=== PATIENT | female | born 1960 | race Caucasian/White ===

== ENCOUNTER 2019-02-21 16:07 | Emergency (ER) | payer MEDICARE, SELFPAY ==
[2019-02-21 16:09] VITALS: BP 109/76; PULSE 147; RESP 22; TEMP 36.8; O2SAT 95; BMI 41.9
--- NOTE | 2019-02-21 16:20 | ED.RN ---
ATTEMPTED TO CALL DAUGHTER AND GENERAL POA. NO ANSWER
--- NOTE | 2019-02-21 16:22 | EKG12_ITS ---
Test Reason : GI BLEED Blood Pressure : / mmHG Vent. Rate : 146 BPM Atrial Rate : 292 BPM P-R Int : 000 ms QRS Dur : 092 ms QT Int : 346 ms P-R-T Axes : 098 -36 139 degrees QTc Int : 539 ms Atrial flutter Left axis deviation Anteroseptal infarct , age undetermined Nonspecific ST & T wave abnormality Abnormal ECG Confirmed by BERNIE REYES, TIFFANIE ([id number]), desk editor FARZANEH PEREZ ([id number] on 02/25/2019 2:20:49 PM Referred By: ARNIE Confirmed By:TIFFANIE GIBBS MD
--- NOTE | 2019-02-21 16:23 | CT_ITS ---
STUDY: CT BRAIN WITHOUT CONTRAST REASON FOR EXAM: Female, 59 years old. Fall. RADIATION DOSAGE (If Supplied By Facility): CTDIvol = ( 44.99 ) mGy, DLP = ( 762.36 ) mGycm TECHNIQUE: Transaxial CT imaging of the brain was performed without administration of intravenous contrast material. Individualized dose optimization techniques were used for this CT. COMPARISON: No relevant priors. FINDINGS: Normal soft tissue structures. Normal calvarium. Normal size ventricles and extra-axial spaces for the patient''s age. There are areas of decreased attenuation within the white matter tracts of the supratentorial brain, consistent with microvascular disease changes. Normal basal ganglia and thalami. Normal brainstem. Normal cerebellum. There is no intracranial hemorrhage. There are no findings of an acute ischemic infarction. Normal visualized paranasal sinuses. CT/Brain/Head without Contrast IMPRESSION: Chronic involutional changes of the brain. Electronically Signed: Charla Jay MD at 18:27 EST Tel , Service support ,
--- NOTE | 2019-02-21 16:23 | CT_ITS ---
STUDY: CT ABDOMEN AND PELVIS WITH CONTRAST REASON FOR EXAM: Female, 59 years old. Fall. Abdominal pain. Rectal bleeding. RADIATION DOSAGE (If Supplied By Facility): CTDIvol = ( 21.31 ) mGy, DLP = ( 2989.49 ) mGycm TECHNIQUE: Transaxial images were obtained from the dome of the diaphragm to the symphysis pubis without oral contrast. 100ML ISOVUE 370 was administered. Sagittal and coronal images were reconstructed. Individualized dose optimization techniques were used for this CT. COMPARISON: None. FINDINGS: The visualized lung bases are unremarkable. There are coronary artery calcifications present. There is decreased attenuation of the liver consistent with steatosis. Normal spleen. Normal pancreas. There is nodular prominence of the left adrenal gland which may be secondary to underlying hypertrophy. Normal right kidney. Normal left kidney. Normal visualized stomach. Normal small intestine. Normal colon. The appendix is visualized and appears normal. There is nodular rectal and anal wall thickening. There are extraluminal foci of air within the mesial rectal fascia. There are multiple perirectal and perianal fluid collections associated with foci of air extending into the buttocks bilaterally consistent with underlying abscesses. Registrar Assistant abscesses include a 3.5 x 4.2 cm abscess within the right buttocks and a 3.5 x 5.4 cm abscess within the left buttocks. There is diffuse atherosclerotic calcification of the abdominal aorta, without a demonstrated aneurysm. Normal inferior vena cava. Normal retroperitoneum. Normal urinary bladder. There are diffuse degenerative changes of the visualized lumbar spine. CT/Abdomen/Pelvis W IV Cont ONLY IMPRESSION: Multiple bilateral perirectal and perianal abscesses associated with abscesses within the buttocks bilaterally. Extraluminal air within the mesial rectal fat suggestive of rectal and possible anal perforation. Rectal and anal wall thickening which is likely predominantly secondary to inflammation however cannot exclude an underlying neoplastic process. Atherosclerosis. Fatty infiltration of the liver. N.B. : The above information has been verbally conveyed by Charla Jay MD to Destiny Ramos MD, on 02/21/2019 18:29:46 (ET). Electronically Signed: Charla Jay MD at 18:31 EST Tel , Service support ,
--- NOTE | 2019-02-21 16:24 | CT_ITS ---
STUDY: CT CERVICAL SPINE WITHOUT CONTRAST REASON FOR EXAM: Female, 59 years old. Fall. RADIATION DOSAGE (If Supplied By Facility): CTDIvol = ( 30.35 ) mGy, DLP = ( 634.83 ) mGycm TECHNIQUE: High resolution transaxial imaging was performed without contrast material. Sagittal and coronal images were reconstructed. Individualized dose optimization techniques were used for this CT. COMPARISON: None FINDINGS: Normal craniovertebral junction. There are degenerative changes of the anterior atlantoaxial articulation. Normal odontoid process. There is straightening of the normal cervical lordosis. There is multilevel facet hypertrophy. C2-3: Normal endplates. Normal disc height and morphology. Normal central canal and intervertebral neuroforamina. C3-4: There is endplate spondylosis and facet hypertrophy associated narrowing of the right intervertebral neuroforamina. C4-5: There is endplate spondylosis and facet hypertrophy associated with narrowing of the left intervertebral neuroforamina. C5-6: There is a posterior disc osteophyte associated with stenosis of the central canal. C6-7: There is a posterior disc osteophyte associated with stenosis of the central canal. C7-T1: Endplate spondylolysis and facet hypertrophy associated with narrowing of the right intervertebral neuroforamina. Normal visualized soft tissue structures. CT/Spine Cervical without Contras IMPRESSION: Multilevel degenerative changes, as described above. Electronically Signed: Charla Jay MD at 18:37 EST Tel , Service support ,
--- NOTE | 2019-02-21 16:30 | RAD_ITS ---
STUDY: X-RAY CHEST REASON FOR EXAM: Female, 59 years old. Shortness of breath. Rectal bleeding. Abdominal pain. TECHNIQUE: Single frontal view of the chest. COMPARISON: September 23, 2009 and January 24, 2014 FINDINGS: There is no new focal consolidation. Normal size heart. There is stable perihilar fullness.. Normal visualized aortic arch and descending thoracic aorta. Normal visualized thoracic spine. Normal visualized ribs, clavicles, and shoulders. There is no demonstrated abnormality of the visualized soft tissue structures of the upper abdomen. RAD/Chest 1 View (Portable) IMPRESSION: No acute cardiopulmonary process. Electronically Signed: Charla Jay MD at 17:19 EST Tel , Service support ,
[2019-02-21 16:52] LABS: Absolute Lymphocyte Count 1.22 X10^3/uL (0.83-4.51); Absolute Neutrophil Count 17.9 X10^3/uL (2.0-7.7); Basophil# 0.07 X10^3/uL; Basophil% 0.4 % (0-1); Eosinophil# 0.03 X10^3/uL; Eosinophils% 0.2 % (0-5); Hemoglobin 11.7 g/dL (12.0-15.0); Lymphocyte # 1.22 X10^3/ul (4.0); Lymphocyte % 6.1 % (19-41); Mean Corp Hgb Conc 32.5 g/dL (32-36); Mean Corpuscular Hgb 28.6 pg (27.0-32.0); Mean Platelet Vol. 11.8 fl (6.2-12.0); Monocyte# 0.61 X10^3/uL; Monocyte% 3.1 % (0-10); NRBC Flagged by Analyzer 0 % (0-5); Neutrophil # 17.88 X10^3/uL (2.7-7.7); Neutrophil % 89.3 % (47-70); POSITIVE MORPHOLOGY YES; Platelet Count 187 K/mm3 (150-450); RBC Distribution Width CV 15.9 % (11.6-14.6); Red Blood Count 4.09 M/mm3 (4.2-5.4)
[2019-02-21 16:56] LABS: Bacteria 0 SEEN /hpf (None Seen)
[2019-02-21 16:56] LABS: Differential Indicated SCAN CRITERIA MET
[2019-02-21 17:02] LABS: International Normalized Ratio 1.4; Prothrombin Time (Protime)PT. 17.3 SECONDS (11.7-14.9)
--- NOTE | 2019-02-21 17:05 | ED.VISSUMM ---
- ER Visit Summary Date of Service: 02/21/19 Chief Complaint: Abdominal pain History of Present Illness: The patient is a 59 F presenting to the ED per EMS for abdominal pain and rectal bleeding. Patient is a poor historian. She states she has been having intermittent abdominal pain for the past 2 weeks. She states she fell last night getting out of the bathtub and hit her abdomen on the bathtub. She denies hitting her head. Denies loss of consciousness. She complains of dizziness. She has a history of hidradenitis and states that she has had bleeding from her buttock. She has a history of schizophrenia. She states her family took her off all her medications 2 weeks ago, with the exception of Bactrim which she takes for hidradenitis and her schizophrenia medication. She states she has shortness of breath which is chronic and no worse than usual. She denies chest pain. She denies nausea, vomiting, diarrhea. She complains of constipation. Denies blood in her stool. She complains of dysuria and myalgias. She complains of generalized weakness and fatigue. Denies fever or other complaints. Physical Examination: Blood pressure 109/76, temperature 98.2, heart rate 147, respiration rate 22. Pulse ox 95% on room air. HEENT exam is unremarkable. Neck is supple. Lungs are clear and equal bilaterally. Heart is irregularly irregular and tachycardic Abdomen is soft obese nontender nondistended. Back: Extensive abscess/decubitus ulcer with purulent drainage Extremities are unremarkable. Skin is warm and dry. No focal neurologic deficit. Remainder of exam is unremarkable. Emergency Department Course and Treatment: Patient was given IV fluids. Blood cultures were sent. CBC shows white count of 20.0, hemoglobin 11.7. EKG is a flutter rate of 146. Chemistries show sodium 135, glucose 193, creatinine 1.12. INR 1.4. Urinalysis shows 5-10 white blood cells. Urine cultures were sent. Lactic acid was 3.7. Troponin 0.295. She was given 30 cc/kg bolus of IV fluids. Chest x-ray shows no acute process. She was given vancomycin and Zosyn. CT head and neck show no acute process. CT abd/pelvis shows multiple bilateral perirectal and perianal abscesses associated with abscesses within the buttocks bilaterally. Extraluminal air within the mesial rectal fat suggestive of rectal and possible anal perforation. Rectal and anal wall thickening which is likely predominantly secondary to inflammation however cannot exclude an underlying neoplastic process. Atherosclerosis. Fatty infiltration of the liver. Discussed with Dr. Mchugh. Discussed with family. Patient will be transferred to [facility]. Disposition: Transfer [facility] Impression: Multiple bilateral perirectal and perianal abscesses with rectal and anal perforation, A. fib with RVR, severe sepsis This note was generated with [employer] dictation software. It may contain incorrect words, spelling, and punctuation that were not noted in review of the chart prior to signing ED Disposition - Plan for ED Patient: Referrals: Lai Londono MD [Primary Care Provider] -
[2019-02-21 17:21] LABS: Differential Comment SCANNED
[2019-02-21] MEDS: 0.9% Normal Saline 1,000 ML 999 ML IV ×2 (17:21→18:25)
[2019-02-21 17:25] LABS: Color, Urine Amber (Yellow); Glucose, Dipstick Normal (Normal); Ketone-Dipstick 5 mg/dl (Negative); Leukocyte Esterase-Dipstick 25 /ul (Negative); Nitrite-Dipstick Negative (Negative); Occult Blood-Urine 10 /ul (Negative); Protein-Dipstick 30 mg/dl (Negative); Urine Clarity Sl. Cloudy (Clear); Urine Urobilinogen 8 mg/dl (Normal)
[2019-02-21 17:26] LABS: ALB/GLOB Ratio 0.3 RATIO (0.9-2.4); AST(SGOT) 48 U/L (15-37); Alanine Aminotransfer ALT/SGPT 27 U/L (13-56); Albumin, Serum 1.7 g/dL (3.2-5.0); Alkaline Phosphatase 183 U/L (45-117); Anion Gap 9 (5-15); BUN 15 mg/dL (7-18); BUN/Creat Ratio 13.4 RATIO (10-20); Calcium,Total 8.3 mg/dL (8.5-10.1); Chloride 104 mmol/L (98-107); Creatinine, Serum 1.12 mg/dL (0.55-1.02); EST Glomerular Filtration Rate 53 mL/min (>60); Est Glom Filt Rate - Afr Amer 64 mL/min (>60); Estimated Creatinine Clearance 46.13 ml/min; Globulin 5.8 g/dL (2.2-4.2); Glucose 193 mg/dL (74-106); Lipase 37 U/L (73-393); Potassium 4.3 mmol/L (3.5-5.1); Protein, Total 7.5 g/dL (6.4-8.2); Sodium Level 135 mmol/L (136-145)
[2019-02-21 17:27] LABS: Urine Bilirubin Dipstick 3 mg/dL (Negative)
[2019-02-21 17:29] LABS: Mucous, Urine 3+ /hpf (<or=2+); Red Blood Cells-Urine 0-5 SEEN /hpf (0-5); Squamous Epithelial Cells - UA 0-5 SEEN /hpf (5-10); White Blood Cells 5-10 SEEN /hpf (0-5)
[2019-02-21 17:30] LABS: Amorphous Sediment 1+ URATE
[2019-02-21 17:37] LABS: Lactic Acid 3.7 mmol/L (0.4-1.9)
[2019-02-21 18:40] VITALS: BMI 42.0
[2019-02-21 18:52] LABS: Digoxin Level 0.08 ng/mL (0.80-2.00)
[2019-02-21 19:07] VITALS: BP 112/70; PULSE 136; RESP 30; TEMP 37.7; O2SAT 97
[2019-02-21 20:24] VITALS: PULSE 140; O2SAT 98
[2019-02-21 20:52] LABS: Reflex Lactate? Y
== END 2019-02-21 20:20 | disposition short-term general hospital (02) ==
LOC: ED 16:36
PROVIDERS: Emergency Provider Emergency Medicine; Family Provider Family Medicine; PCP Family Medicine
DX: A41.9 Sepsis, unspecified organism (principal); R65.20 Severe sepsis without septic shock; K61.2 Anorectal abscess; K63.1 Perforation of intestine (nontraumatic); I48.91 Unspecified atrial fibrillation; L73.2 Hidradenitis suppurativa; F20.9 Schizophrenia, unspecified; Z79.2 Long term (current) use of antibiotics; Z79.899 Other long term (current) drug therapy; Z72.0 Tobacco use
CPT/HCPCS: 36415; 70450; 71045; 72125; 74177; 80053; 80162; 81001; 82274; 83605; 83690; 84484; 85025; 85610; 85730; 87040; 87086; 93005; 96365; 96367; 96375; 99285; J7030; J7040; J7050; Q9967; A4216

== ENCOUNTER 2019-03-25 14:05 | Inpatient (IN) | payer MEDICARE, MEDICAID, SELFPAY ==
[2019-03-25 15:00] VITALS: BP 123/56; PULSE 83; RESP 18; TEMP 36.3; O2SAT 98; BMI 40.3
[2019-03-25] MEDS: Acetaminophen 325 MG Tablet PO (16:13)
[2019-03-25 18:18] VITALS: BP 123/56; PULSE 83
[2019-03-25] MEDS: Metoprolol Tartrate 25 MG Tablet PO (18:18)
--- NOTE | 2019-03-25 18:58 | NURSING ---
Attempted to contact family multiple times to notify them of need for patients home med. Unable to reach anyone.
--- NOTE | 2019-03-25 19:06 | NURSING ---
Spoke with Rosaline, patients daughter. Made her aware of need for a home medication that is not currently available from our pharmacy. Daughter stated she would see if she had any medication that she could bring in.
--- NOTE | 2019-03-25 19:23 | PCM.HP.STD ---
Problem List (1) Debility Status: Acute (2) Sepsis Status: Acute (3) Perirectal abscess Status: Acute (4) Schizophrenia Status: Chronic (5) Bipolar disorder Status: Chronic (6) Atrial fibrillation Status: Chronic (7) Hydradenitis Status: Chronic (8) Diabetes mellitus Status: Chronic (9) Hypertension Status: Chronic (10) Osteoarthritis Status: Chronic (11) Irritable bowel syndrome Status: Chronic (12) Morbid obesity Status: Chronic (13) Obstructive sleep apnea Status: Chronic (14) Post traumatic stress disorder Status: Chronic History of Present Illness Date of Admission: 03/25/19 Chief Complaint: Here for rehabilitation, strengthening, prior to disposition determination. The patient is a 59 year old Female with below past medical history presented to outside hospital with concern for sepsis, possible rectal perforation from jojo-rectal hydradenitis suppurativa. Patient states she has had hydradenitis since she was [age] and previously required bilateral axillary I&D's for it. She states that for the past week she has been having worsening pain in her butt as well and both purulent, bloody drainage. She has been having fevers, chills. Septic shock, perirectal hydradenitis with possible anorectal perforation on CT, atrial fibrillation with RVR, status post rectal examination under anesthesia, perirectal debridement, flex sig 02/22/2019. She underwent surgery and was found to have multiple rectal abscesses. She underwent I&D and currently is on IV Unasyn on transfer from [facility]. Daughter is POA/primary decision maker due to patient's history of mental illness including schizophrenia, bipolar disorder. 03/02/2019 IV Unasyn, consult Infectious Disease for perirectal abscess. Sepsis resolved. Cultures grew mixed liliana including E. Coli susceptible to ceftriaxone, and bacteroides. ID switched her Unasyn to oral Augmentin. Also started on oral zinc to help with hydradenitis. 03/25/2019 Admit to TCU with debility, here for rehabilitation, strengthening, prior to disposition determination. Past Medical History Past Medical History (Chronic Problems): Chronic Problems Schizophrenia (Chronic) Bipolar disorder (Chronic) Atrial fibrillation (Chronic) Hydradenitis (Chronic) Diabetes mellitus (Chronic) Hypertension (Chronic) Osteoarthritis (Chronic) Irritable bowel syndrome (Chronic) Morbid obesity (Chronic) Obstructive sleep apnea (Chronic) Post traumatic stress disorder (Chronic) Allergies diltiazem Allergy (Verified 01/24/14 11:21) Swelling aripiprazole [From Abilify] Adverse Reaction (Verified 03/25/19 15:09) Anaphylaxis doxepin Adverse Reaction (Verified 03/25/19 15:09) Other doxycycline Adverse Reaction (Verified 01/24/14 11:21) Other ibuprofen [From Motrin] Adverse Reaction (Verified 01/24/14 11:21) Nausea/Vom/Diarrhea naproxen [From Naprosyn] Adverse Reaction (Verified 01/24/14 11:21) Nausea/Vom/Diarrhea prednisone Adverse Reaction (Verified 01/28/14 14:23) Other made me real mean risperidone [From Risperdal] Adverse Reaction (Verified 03/25/19 15:09) Swelling Home Medications: Ambulatory Orders Medication Instructions Recorded Clonazepam 1 mg PO BID 02/21/19 Gabapentin [Neurontin] 400 mg PO TID 02/21/19 Loxapine Succinate [Loxapine] 25 mg PO QHS 02/21/19 Sulfamethoxazole/Trimethoprim 1 tab PO BID 02/21/19 [Sulfamethoxazole-Tmp Ds Tablet] Acetaminophen [Tylenol] 325 mg PO 4X/DAY 03/25/19 Amiodarone HCl 200 mg PO DAILY 03/25/19 Ascorbic Acid [Vitamin C] 500 mg PO BID 03/25/19 Enoxaparin Sodium [Lovenox] 40 mg SQ DAILY 03/25/19 Gabapentin [Neurontin] 200 mg PO TID 03/25/19 Ibuprofen 200 mg PO TID 03/25/19 Ipratropium/Albuterol Sulfate 3 ml INHALATION Q6H.RT 03/25/19 [Duoneb] Metoprolol Tartrate 25 mg PO BID 03/25/19 Oxycodone [Oxyir] 5 mg PO Q6H PRN PRN 03/25/19 Sodium Hypochlorite [Dakins 1 applic TOPICAL BID 03/25/19 Solution 0.25% (1/2 Strength)] Zinc Sulfate 220 mg PO BID 03/25/19 Surgical History: cholecystectomy, - - Left breast abscess, right groin, thigh, abdomen abscess. Axillary, groin abscess. 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 Denies: Chills, Fever, Weight Change HEENT: Denies: Head Aches, Sinus Congestion, Sinus Drainage Cardiovascular: Denies: Chest Pain, Palpitations Respiratory: Denies: Cough, Shortness of breath at rest, Sputum production Gastrointestinal: Denies: Abdominal Pain, Nausea, Vomiting Genitourinary: Denies: Dysuria Musculoskeletal: Denies: Joint Pain, Joint Tenderness Skin: Denies: Rash, Wounds Neurological: Denies: Numbness, Tingling, Focal weakness Psychiatric: Denies: Anxiety, Depression, Homicidal Ideations, Suicidal Ideations Hematologic/ Lymphatic: Denies: Easy Bruising, Easy Bleeding VTE Information - Inpt Only VTE Present on Admission: No VTE Mechan Device Prophylaxis: Knee High KARMA Hose VTE Pharm Prophylaxis ordered?: Yes Patient Problems: Active and Suspected Problems Debility (Acute) Sepsis (Acute) Perirectal abscess (Acute) - Physical Exam Vitals/I&O's: Vital Signs Temp Pulse Resp BP Pulse Ox 97.4 F L 83 18 123/56 H 98 03/25/19 15:00 03/25/19 18:18 03/25/19 15:00 03/25/19 18:18 03/25/19 15:00 Oxygen Delivery Method Room Air Body Mass Index (BMI) 41.9 Intake and Output for Last 24 Hours 03/23/19 03/24/19 03/25/19 23:59 23:59 23:59 Intake Total 120 / 120 Balance 120 / 120 General: Alert, Oriented x3, Cooperative HEENT: Atraumatic, PERRLA, EOMI, Normocephalic Neck: Supple, No JVD, Negative Carotid Bruits Lungs: Clear to auscultation, Normal air movement Cardiovascular: Regular rate, No murmurs, - - Central line in chest. Abdomen: Bowel Sounds Present, Soft, Non Tender, - - Indwelling gimenez catheter. Extremities: No edema, Capillary Refill Less than 3 Seconds Skin: Ulcer/ Wound - Perianal wound per wound team. Musculoskeletal: No Tenderness to Palpation of Joints or Extremities Neurological: Cranial nerves II-XII grossly intact Psych/Mental Status: Normal Affect, Appropriate Current Medications Acetaminophen (Tylenol) 325 mg PO 4X/DAY MALGORZATA Last Admin: 03/25/19 16:13 Dose: 325 mg Documented by: Albuterol/Ipratropium (Duoneb) 3 ml INHALATION Q6H.RT [facility] Amiodarone HCl (Cordarone) 200 mg PO DAILY [facility] Ascorbic Acid (Vitamin C) 500 mg PO BID [facility] Clonazepam (Klonopin) 1 mg PO BID [facility] Enoxaparin Sodium (Lovenox) 40 mg SC DAILY [facility] Gabapentin (Neurontin) 200 mg PO TID [facility] Ibuprofen (Motrin) 200 mg PO TID [facility] Loxapine Succinate (Loxapine) 25 mg PO QHS [facility] Metoprolol Tartrate (Lopressor (Beta Marcella)) 25 mg PO BID [facility] Last Admin: 03/25/19 18:18 Dose: 25 mg Documented by: Multivit/Ca Carb/B Cmplx/FA/Prenat (Nephrocaps, Renaphro) 1 capsule PO DAILY[facility] Nystatin (Mycostatin Powder) 1 applic TOPICAL BID [facility]; Protocol Oxycodone HCl (Oxyir) 5 mg PO Q6H PRN PRN PRN Reason: Pain or Fever Sodium Hypochlorite (Dakins Solution 0.25% (1/2 Strength)) 1 applic TOPICAL BID [facility]; Protocol Trimethoprim/Sulfamethoxazole (Bactrim Ds) 1 tablet PO BID [facility] Tuberculin PPD (Tubersol, Aplisol, Ppd) 5 tu ID X1 ONE Stop: 03/26/19 10:01 Tuberculin PPD (Tubersol, Aplisol, Ppd) 5 tu ID X1 ONE Stop: 04/02/19 10:01 Zinc Sulfate (Zinc Sulfate) 220 mg PO BID [facility] Last Admin: 03/25/19 18:18 Dose: 220 mg Documented by: Assessment/Plan All Active Problems Debility (Acute) Sepsis (Acute) Perirectal abscess (Acute) 59 year old female with below past medical history hospitalized for sepsis, perirectal abscess secondary to hydradenitis requiring incision & drainage, admitted to [facility], transferred to TCU with debility, here for rehabilitation, strengthening, prior to disposition determination. Debility - PT/OT. Pain - Tylenol 1000MG Q8H, Oxycodone 5MG Q6H PRN pain (4-10), Ibuprofen 200MG TID. Bowel - Miralax 17GM daily, Senna/colace 1 tablet BID, Dulcolax 10MG daily PRN. Adult immunization - Administer Prevnar 13, Pneumovax 23, Fluzone as appropriate. DVT prophylaxis - Lovenox 40MG SC daily. Atrial Fibrillation - Metoprolol 25MG twice daily, Amiodarone 200MG daily, ?anticoagulation. Vitamin C deficiency - Vitamin C 500MG twice daily. Anxiety - Clonazepam 1MG twice daily. Chronic Kidney Disease - Nephrocap 1 cap daily. Shortness of breath - Duoneb 3ML Q6H. Schizophrenia - Loxapine 25MG QHS. Tinea Corporis - Nystatin powder twice daily. ID - Bactirm DS 1 tablet twice daily. Perirectal wound - Dakins 1/2 strength twice daily, consult wound nurse.
[2019-03-25 20:05] VITALS: O2SAT 96
[2019-03-25] MEDS: Nystatin Powder 15gm Bottle 1 APPLIC TOPICAL (20:15)
[2019-03-25 21:12] VITALS: O2SAT 96
[2019-03-25] MEDS: DAKIN'S SOL HALF STRENGTH (=0.25%) 1 APPLIC TOPICAL (21:12)
[2019-03-25] MEDS: Ibuprofen 200 MG Tablet PO (21:28)
[2019-03-25] MEDS: Acetaminophen 500 MG Tablet 1000 MG PO (21:30)
[2019-03-25] MEDS: Gabapentin 100 MG Capsule 200 MG PO (21:30)
[2019-03-25 23:30] LABS: Bedside Glucose 116 mg/dL (70-110)
[2019-03-26 06:16] LABS: Bedside Glucose 102 mg/dL (70-110)
[2019-03-26] MEDS: Ibuprofen 200 MG Tablet PO ×2 (06:24→12:40)
[2019-03-26] MEDS: Nystatin Powder 15gm Bottle 1 APPLIC TOPICAL ×2 (06:24→18:23)
[2019-03-26] MEDS: Senna/Docusate Sodium 1 Tablet PO ×2 (06:25→18:16)
[2019-03-26] MEDS: Acetaminophen 500 MG Tablet 1000 MG PO ×3 (06:25→20:54)
[2019-03-26] MEDS: Ascorbic Acid 500 MG Tablet PO ×2 (06:25→18:16)
[2019-03-26] MEDS: Enoxaparin 40 MG/0.4 ML Syringe SC (06:32)
[2019-03-26] MEDS: Amiodarone 200 MG Tablet PO (06:32)
[2019-03-26] MEDS: clonazePAM 1 MG Tablet PO ×2 (06:32→18:15)
[2019-03-26 06:33] VITALS: BP 143/66; PULSE 100
[2019-03-26] MEDS: Gabapentin 100 MG Capsule 200 MG PO ×3 (06:33→20:55)
[2019-03-26] MEDS: Metoprolol Tartrate 25 MG Tablet PO ×2 (06:33→18:20)
[2019-03-26 06:38] LABS: Absolute Lymphocyte Count 2.82 X10^3/uL (0.83-4.51); Absolute Neutrophil Count 4.8 X10^3/uL (2.0-7.7); Basophil# 0.07 X10^3/uL; Basophil% 0.8 % (0-1); Eosinophil# 0.16 X10^3/uL; Eosinophils% 1.8 % (0-5); Hematocrit 37.5 % (37-47); Hemoglobin 11.8 g/dL (12.0-15.0); Lymphocyte # 2.82 X10^3/ul (4.0); Lymphocyte % 32.4 % (19-41); Mean Corp Hgb Conc 31.5 g/dL (32-36); Mean Corpuscular Volume 95.4 fL (81-99); Mean Platelet Vol. 11.4 fl (6.2-12.0); Monocyte# 0.79 X10^3/uL; Monocyte% 9.1 % (0-10); NRBC Flagged by Analyzer 0 % (0-5); Neutrophil # 4.81 X10^3/uL (2.7-7.7); Neutrophil % 55.3 % (47-70); Platelet Count 209 K/mm3 (150-450); RBC Distribution Width CV 17.9 % (11.6-14.6); RBC Distribution Width SD 63.2 fl (35.1-43.9); Red Blood Count 3.93 M/mm3 (4.2-5.4); White Blood Count 8.7 K/mm3 (4.4-11.0)
[2019-03-26 06:57] LABS: Anion Gap 6 (5-15); BUN 20 mg/dL (7-18); BUN/Creat Ratio 25.9 RATIO (10-20); Calcium,Total 8.9 mg/dL (8.5-10.1); Chloride 106 mmol/L (98-107); Creatinine, Serum 0.77 mg/dL (0.55-1.02); EST Glomerular Filtration Rate 81 mL/min (>60); Est Glom Filt Rate - Afr Amer 98 mL/min (>60); Estimated Creatinine Clearance 67.09 ml/min; Glucose 102 mg/dL (74-106); Potassium 3.8 mmol/L (3.5-5.1); Sodium Level 137 mmol/L (136-145)
[2019-03-26 07:20] VITALS: PULSE 103; RESP 18; O2SAT 96
[2019-03-26] MEDS: Ipratropium/Albuterol Sulfate 3 ML AMPUL.NEB INHALATION (07:25)
[2019-03-26 09:41] LABS: Bedside Glucose 205 mg/dL (70-110)
[2019-03-26 09:43] VITALS: BP 104/56; PULSE 110; RESP 20; TEMP 37; O2SAT 96
[2019-03-26] MEDS: Tuberculin,Purif.prot.deriv. 50 TU/ML Vial 5 ML ID (11:45)
[2019-03-26] MEDS: Folic Acid/Vitamin B Comp W-C 1 Capsule 1 CAP PO (11:45)
--- NOTE | 2019-03-26 12:10 | NURSING ---
pt was set up for breakfast, was agreeable to be bathed by staff and returned to bed at 0930. Checked on pt at 0900 and pt was on phone with daughter, supplies set up. MARK Manrique in at 0905 to assist pt when pt found on floor, called AMAYA He into room. Pt states they were supposed to put me in bed at 9:30, I was trying to get back to bed, my butt was hurting. assessment performed, no acute changes noted. pt oriented to place, and person. pt stated it's february,. reoriented to time. pt not confused, but seems to have trouble organizing thoughts, behavior impulsive.
--- NOTE | 2019-03-26 13:47 | PHA.CONS_ITS ---
<Yesika Guzman - Last Filed: 03/26/19 13:47> Progress Note - Pharmacy Subjective: TCU Admission Objective: Allergies diltiazem Allergy (Verified 01/24/14 11:21) Swelling aripiprazole [From Abilify] Adverse Reaction (Verified 03/25/19 15:09) Anaphylaxis doxepin Adverse Reaction (Verified 03/25/19 15:09) Other doxycycline Adverse Reaction (Verified 01/24/14 11:21) Other ibuprofen [From Motrin] Adverse Reaction (Verified 01/24/14 11:21) Nausea/Vom/Diarrhea naproxen [From Naprosyn] Adverse Reaction (Verified 01/24/14 11:21) Nausea/Vom/Diarrhea prednisone Adverse Reaction (Verified 01/28/14 14:23) Other made me real mean risperidone [From Risperdal] Adverse Reaction (Verified 03/25/19 15:09) Swelling Current Medications Generic Name Dose Route Start Last Admin Trade Name Freq PRN Reason Stop Dose Admin Acetaminophen 1,000 mg 03/25/19 22:00 03/26/19 12:40 Tylenol PO 1,000 mg Q8 MALGORZATA Administration Albuterol/Ipratropium 3 ml 03/25/19 19:00 03/26/19 13:14 Duoneb INHALATION Not Given Q6H.RT MALGORZATA Amiodarone HCl 200 mg 03/26/19 06:00 03/26/19 06:32 Cordarone PO 200 mg DAILY MALGORZATA Administration Ascorbic Acid 500 mg 03/26/19 06:00 03/26/19 06:25 Vitamin C PO 500 mg BID MALGORZATA Administration Bisacodyl 10 mg 03/25/19 19:53 Dulcolax PO DAILY PRN Constipation Clonazepam 1 mg 03/26/19 06:00 03/26/19 06:32 Klonopin PO 1 mg BID MALGORZATA Administration Enoxaparin Sodium 40 mg 03/26/19 06:00 03/26/19 06:32 Lovenox SC 40 mg DAILY MALGORZATA Administration Gabapentin 200 mg 03/25/19 22:00 03/26/19 12:41 Neurontin PO 200 mg TID MALGORZATA Administration Ibuprofen 200 mg 03/25/19 22:00 03/26/19 12:40 Motrin PO 200 mg TID MALGORZATA Administration Loxapine Succinate 25 mg 03/25/19 22:00 03/25/19 22:32 Loxapine PO Not Given QHS MALGORZATA Metoprolol Tartrate 25 mg 03/25/19 18:00 03/26/19 06:33 Lopressor (Beta Marcella) PO 25 mg BID MALGORZATA Administration Multivit/Ca Carb/B Cmplx/FA/Prenat 1 capsule 03/26/19 08:00 03/26/19 11:45 Nephrocaps, Renaphro PO 1 capsule DAILYCM MALGORZATA Administration Nystatin 1 applic 03/25/19 18:00 03/26/19 06:24 Mycostatin Powder TOPICAL 1 applicatio BID [facility] Administration Protocol Oxycodone HCl 5 mg 03/25/19 15:28 Oxyir PO Q6H PRN PRN Pain Score 4-10/10 Polyethylene Glycol 17 gm 03/26/19 06:00 03/26/19 06:26 Miralax PO Not Given DAILY [facility] Senna/Docusate Sodium 1 tablet 03/26/19 06:00 03/26/19 06:25 Senokot-S, Laureen-Colace PO 1 tablet BID [facility] Administration Sodium Hypochlorite 1 applic 03/26/19 10:00 Dakins Solution 0.25% (1/2 Strength) TOPICAL 1000,2200 [facility] Protocol Tuberculin PPD 5 tu 04/02/19 10:00 Tubersol, Aplisol, Ppd ID 04/02/19 10:01 X1 ONE Zinc Sulfate 220 mg 03/25/19 18:00 03/26/19 09:31 Zinc Sulfate PO 220 mg BID [facility] Administration Problem List Debility (Acute) Sepsis (Acute) Perirectal abscess (Acute) Schizophrenia (Chronic) Bipolar disorder (Chronic) Atrial fibrillation (Chronic) Hydradenitis (Chronic) Diabetes mellitus (Chronic) Hypertension (Chronic) Osteoarthritis (Chronic) Irritable bowel syndrome (Chronic) Morbid obesity (Chronic) Obstructive sleep apnea (Chronic) Post traumatic stress disorder (Chronic) Vital Signs Temp Pulse Resp BP Pulse Ox 98.6 F 110 H 20 H 104/56 L 96 03/26/19 09:43 03/26/19 09:43 03/26/19 09:43 03/26/19 09:43 03/26/19 09:43 Oxygen Delivery Method Room Air Weight: 107.615 kg Body Mass Index (BMI) 40.3 Sodium 137 mmol/L (136-145) 03/26/19 06:14 Potassium 3.8 mmol/L (3.5-5.1) 03/26/19 06:14 Chloride 106 mmol/L (98-107) 03/26/19 06:14 Carbon Dioxide 25.0 mmol/L (21.0-32.0) 03/26/19 06:14 Anion Gap 6 (5-15) 03/26/19 06:14 BUN 20 mg/dL (7-18) H 03/26/19 06:14 Creatinine 0.77 mg/dL (0.55-1.02) 03/26/19 06:14 Est GFR (MDRD) Af Amer 98 mL/min (>60) 03/26/19 06:14 Est GFR (MDRD) Non-Af 81 mL/min (>60) 03/26/19 06:14 BUN/Creatinine Ratio 25.9 RATIO (10-20) H 03/26/19 06:14 Glucose 102 mg/dL (74-106) 03/26/19 06:14 Assessment/Plan: 1. Pain: acetaminophen 1000mg Q8H, ibuprofen 200mg PO TID, oxycodone 5mg PO Q6H PRN pain (4-12/20). Please continue to monitor for pain and renal function. 2. DVT prophylaxis: enoxaparin 40mg SC daily. Please continue to monitor for S/S of bleeding, renal function and platelets. *3. Atrial fibrillation: metoprolol tartrate 25mg PO BID and amiodarone 200mg PO daily. [id number] score of 2 based on sex and hypertension history. I could not find a reason in the chart as to why the patient is not anticoagulated. Please consider adding stopping enoxaparin and adding anticoagulation such as warfarin or apixaban 5mg PO BID as clinically appropriate. Thanks. 4. Chronic kidney disease: Nephrocap 1C PO DAILYCM. Please continue to monitor. *5. Shortness of breath: ipratropium/albuterol 3mL inhalation Q6H.RT. Patient has refused 4/5 doses. Please consider switching from scheduled to Q6H PRN sob/wheezing. Thanks. 6. Vitamin C deficiency: ascorbic acid 500mg PO BID. Please continue to monitor. 7. Hydradentitis: zinc sulfate 220mg PO BID. Please continue to monitor. Psychotropic Medications: 1. Schizophrenia: loxapine 25mg PO QHS. Please see physician note regarding GDR. Please continue to monitor for extrapyramidal symptoms and blood pressure. *2. Anxiety: clonazepam 1mg PO BID. Please consider GDR by 09/2019 if clinically appropriate. Thanks. *Unnecessary Medications: gabapentin 200mg PO TID. I could not find a documented indication for this medication. Please consider D/C if clinically appropriate. Thanks. Please continue to monitor for confusion and renal function. Bowel Regimen: Miralax 17gm PO daily, senna/docusate 1T PO BID, bisacodyl 10mg PO daily PRN constipation. Please continue to monitor for constipation. Date of Note:: 03/26/19 - Provider Comments Provider responsibility: Provider responsible to enter orders to implement recommendations <Dimitri Mancera Chi - Last Filed: 03/26/19 17:02> Progress Note - Pharmacy Subjective: [] Objective: Allergies diltiazem Allergy (Verified 01/24/14 11:21) Swelling aripiprazole [From Abilify] Adverse Reaction (Verified 03/25/19 15:09) Anaphylaxis doxepin Adverse Reaction (Verified 03/25/19 15:09) Other doxycycline Adverse Reaction (Verified 01/24/14 11:21) Other ibuprofen [From Motrin] Adverse Reaction (Verified 01/24/14 11:21) Nausea/Vom/Diarrhea naproxen [From Naprosyn] Adverse Reaction (Verified 01/24/14 11:21) Nausea/Vom/Diarrhea prednisone Adverse Reaction (Verified 01/28/14 14:23) Other made me real mean risperidone [From Risperdal] Adverse Reaction (Verified 03/25/19 15:09) Swelling Current Medications Generic Name Dose Route Start Last Admin Trade Name Freq PRN Reason Stop Dose Admin Acetaminophen 1,000 mg 03/25/19 22:00 03/26/19 12:40 Tylenol PO 1,000 mg Q8 MALGORZATA Administration Albuterol/Ipratropium 3 ml 03/25/19 19:00 03/26/19 13:55 Duoneb INHALATION Not Given Q6H.RT MALGORZATA Amiodarone HCl 200 mg 03/26/19 06:00 03/26/19 06:32 Cordarone PO 200 mg DAILY MALGORZATA Administration Ascorbic Acid 500 mg 03/26/19 06:00 03/26/19 06:25 Vitamin C PO 500 mg BID MALGORZATA Administration Bisacodyl 10 mg 03/25/19 19:53 Dulcolax PO DAILY PRN Constipation Cefuroxime Axetil 500 mg 03/26/19 16:58 Ceftin PO 03/26/19 16:59 X1 ONE Cefuroxime Axetil 500 mg 03/26/19 18:00 Ceftin PO 04/02/19 18:01 Q12 MALGORZATA Clonazepam 1 mg 03/26/19 06:00 03/26/19 06:32 Klonopin PO 1 mg BID MALGORZATA Administration Enoxaparin Sodium 40 mg 03/26/19 06:00 03/26/19 06:32 Lovenox SC 40 mg DAILY MALGORZATA Administration Gabapentin 200 mg 03/25/19 22:00 03/26/19 12:41 Neurontin PO 200 mg TID MALGORZATA Administration Ibuprofen 200 mg 03/25/19 22:00 03/26/19 12:40 Motrin PO 200 mg TID MALGORZATA Administration Loxapine Succinate 25 mg 03/25/19 22:00 03/25/19 22:32 Loxapine PO Not Given QHS MALGORZATA Metoprolol Tartrate 25 mg 03/25/19 18:00 03/26/19 06:33 Lopressor (Beta Marcella) PO 25 mg BID [facility] Administration Multivit/Ca Carb/B Cmplx/FA/Prenat 1 capsule 03/26/19 08:00 03/26/19 11:45 Nephrocaps, Renaphro PO 1 capsule DAILYCM [facility] Administration Nystatin 1 applic 03/25/19 18:00 03/26/19 06:24 Mycostatin Powder TOPICAL 1 applicatio BID [facility] Administration Protocol Oxycodone HCl 5 mg 03/25/19 15:28 Oxyir PO Q6H PRN PRN Pain Score 4-10/10 Polyethylene Glycol 17 gm 03/26/19 06:00 03/26/19 06:26 Miralax PO Not Given DAILY [facility] Senna/Docusate Sodium 1 tablet 03/26/19 06:00 03/26/19 06:25 Senokot-S, Laureen-Colace PO 1 tablet BID [facility] Administration Sodium Hypochlorite 1 applic 03/26/19 10:00 03/26/19 14:07 Dakins Solution 0.25% (1/2 Strength) TOPICAL 1 applicatio 1000,2200 [facility] Administration Protocol Tuberculin PPD 5 tu 04/02/19 10:00 Tubersol, Aplisol, Ppd ID 04/02/19 10:01 X1 ONE Zinc Sulfate 220 mg 03/25/19 18:00 03/26/19 09:31 Zinc Sulfate PO 220 mg BID MALGORZATA Administration Problem List Debility (Acute) Sepsis (Acute) Perirectal abscess (Acute) Schizophrenia (Chronic) Bipolar disorder (Chronic) Atrial fibrillation (Chronic) Hydradenitis (Chronic) Diabetes mellitus (Chronic) Hypertension (Chronic) Osteoarthritis (Chronic) Irritable bowel syndrome (Chronic) Morbid obesity (Chronic) Obstructive sleep apnea (Chronic) Post traumatic stress disorder (Chronic) Vital Signs Temp Pulse Resp BP Pulse Ox 99.1 F 76 18 113/48 L 97 03/26/19 16:00 03/26/19 16:00 03/26/19 16:00 03/26/19 16:00 03/26/19 16:00 Oxygen Delivery Method Room Air Weight: 107.615 kg Body Mass Index (BMI) 40.3 Sodium 137 mmol/L (136-145) 03/26/19 06:14 Potassium 3.8 mmol/L (3.5-5.1) 03/26/19 06:14 Chloride 106 mmol/L (98-107) 03/26/19 06:14 Carbon Dioxide 25.0 mmol/L (21.0-32.0) 03/26/19 06:14 Anion Gap 6 (5-15) 03/26/19 06:14 BUN 20 mg/dL (7-18) H 03/26/19 06:14 Creatinine 0.77 mg/dL (0.55-1.02) 03/26/19 06:14 Est GFR (MDRD) Af Amer 98 mL/min (>60) 03/26/19 06:14 Est GFR (MDRD) Non-Af 81 mL/min (>60) 03/26/19 06:14 BUN/Creatinine Ratio 25.9 RATIO (10-20) H 03/26/19 06:14 Glucose 102 mg/dL (74-106) 03/26/19 06:14 Assessment/Plan: Psychotropic Medications: Unnecessary Medications: Bowel Regimen: - Provider Comments Provider responsibility: Provider responsible to enter orders to implement recommendations Provider Comments to Recommendations by Pharmacy: Agree
[2019-03-26] MEDS: DAKIN'S SOL HALF STRENGTH (=0.25%) 1 APPLIC TOPICAL ×2 (14:07→21:13)
[2019-03-26 14:31] LABS: Mucous, Urine 0 SEEN /hpf (<or=2+); Red Blood Cells-Urine 0 SEEN /hpf (0-5); Squamous Epithelial Cells - UA 0 SEEN /hpf (5-10)
[2019-03-26 14:34] LABS: Color, Urine Straw (Yellow); Glucose, Dipstick Normal (Normal); Ketone-Dipstick Negative (Negative); Leukocyte Esterase-Dipstick 500 /ul (Negative); Nitrite-Dipstick Positive (Negative); Occult Blood-Urine 10 /ul (Negative); Protein-Dipstick 30 mg/dl (Negative); Specific Gravity, Urine 1.015 (1.002-1.030); Urine Bilirubin Dipstick Negative (Negative); Urine Clarity Cloudy (Clear); Urine Urobilinogen Normal (Normal)
--- NOTE | 2019-03-26 14:37 | NURSING ---
wound photo: jojo-anal
[2019-03-26 14:46] LABS: Bacteria 2+ /hpf (None Seen); White Blood Cells 50-100 SEEN /hpf (0-5)
[2019-03-26 16:00] VITALS: BP 113/48; PULSE 76; RESP 18; TEMP 37.3; O2SAT 97
[2019-03-26 18:20] VITALS: BP 112/55; PULSE 114
[2019-03-26] MEDS: LOXAPINE SUCCINATE 25 MG CAPSULE PO (20:52)
[2019-03-26] MEDS: APIXABAN 5 MG TABLET PO (20:52)
[2019-03-26] MEDS: CEFUROXIME AXETIL 250 MG TABLET 500 MG PO (20:52)
[2019-03-27] MEDS: Gabapentin 100 MG Capsule 200 MG PO ×3 (05:01→21:50)
[2019-03-27] MEDS: CEFUROXIME AXETIL 250 MG TABLET 500 MG PO ×2 (05:01→17:54)
[2019-03-27] MEDS: Nystatin Powder 15gm Bottle 1 APPLIC TOPICAL ×2 (05:02→17:54)
[2019-03-27] MEDS: clonazePAM 1 MG Tablet PO ×2 (05:02→17:42)
[2019-03-27] MEDS: Amiodarone 200 MG Tablet PO (05:02)
[2019-03-27] MEDS: Acetaminophen 500 MG Tablet 1000 MG PO ×3 (05:02→21:50)
[2019-03-27] MEDS: APIXABAN 5 MG TABLET PO ×2 (05:02→17:42)
[2019-03-27] MEDS: Polyethylene Glycol 3350 17 GM PACKET PO (05:05)
[2019-03-27] MEDS: Ascorbic Acid 500 MG Tablet PO ×2 (05:05→17:53)
[2019-03-27] MEDS: Senna/Docusate Sodium 1 Tablet PO ×2 (05:05→17:42)
[2019-03-27 05:06] VITALS: BP 151/59; PULSE 107
[2019-03-27] MEDS: Metoprolol Tartrate 25 MG Tablet PO ×2 (05:06→17:42)
[2019-03-27 06:31] LABS: Bedside Glucose 120 mg/dL (70-110)
[2019-03-27] MEDS: Folic Acid/Vitamin B Comp W-C 1 Capsule 1 CAP PO (08:58)
[2019-03-27 10:00] VITALS: PULSE 100; RESP 16
--- NOTE | 2019-03-27 15:16 | NURSING ---
AMAYA COUCH/WOUND NURSE CHANGED PT DRESSING. AMAYA HYMAN AWARE
[2019-03-27] MEDS: DAKIN'S SOL HALF STRENGTH (=0.25%) 1 APPLIC TOPICAL ×2 (15:18→22:17)
--- NOTE | 2019-03-27 15:54 | CHAPLAIN ---
Type of Pastoral Visit _x__ Initial Visit ___ Follow-up Visit ___ On-call Visit ___ General Patient Visit ___ Spiritual Assessment ___ Family Conference ___ Bereavement ___ Rapid Response ___ Code Blue ___ Other (describe below) Pastoral Care Referral From _x__ Patient ___ Family ___ Nurse ___ Physician _x__ Social Media Marketing Manager ___ Oil Well Fishing Tool Operator ___ Other (describe below) Sacrament/Intervention _x__ Active listening ___ Anointing ___ Pentecostalism ___ Bereavement ___ Communion ___ Geovanna exploration ___ ___ Life review _x__ Prayer ___ Reconciliation ___ Sacrament of Sick _x__ Supportive presence ___ Wedding ___ Other (describe below) Pastoral Comments patient requested support and prayer;
[2019-03-27 16:00] VITALS: BP 146/76; PULSE 113; RESP 24; TEMP 36.1; O2SAT 91
[2019-03-27 17:42] VITALS: BP 146/76; PULSE 113
[2019-03-27] MEDS: LOXAPINE SUCCINATE 25 MG CAPSULE PO (21:50)
[2019-03-27] MEDS: oxyCODONE 5 MG Tablet PO (23:57)
--- NOTE | 2019-03-28 00:03 | NURSING ---
Pt remained in contact isolation during shift d/t secretions. All care provided in room.
[2019-03-28] MEDS: Polyethylene Glycol 3350 17 GM PACKET PO (05:09)
[2019-03-28] MEDS: Senna/Docusate Sodium 1 Tablet PO ×2 (05:10→17:35)
[2019-03-28] MEDS: Ascorbic Acid 500 MG Tablet PO ×2 (05:10→17:35)
[2019-03-28] MEDS: CEFUROXIME AXETIL 250 MG TABLET 500 MG PO ×2 (05:10→17:35)
[2019-03-28] MEDS: Amiodarone 200 MG Tablet PO (05:10)
[2019-03-28] MEDS: Nystatin Powder 15gm Bottle 1 APPLIC TOPICAL ×2 (05:10→23:56)
[2019-03-28] MEDS: Gabapentin 100 MG Capsule 200 MG PO ×3 (05:10→22:53)
[2019-03-28] MEDS: Acetaminophen 500 MG Tablet 1000 MG PO ×3 (05:10→22:54)
[2019-03-28] MEDS: APIXABAN 5 MG TABLET PO ×2 (05:10→17:35)
[2019-03-28] MEDS: clonazePAM 1 MG Tablet PO ×2 (05:10→17:35)
[2019-03-28 05:13] VITALS: BP 127/78; PULSE 107
[2019-03-28] MEDS: Metoprolol Tartrate 25 MG Tablet PO ×2 (05:13→17:35)
[2019-03-28 06:26] LABS: Bedside Glucose 116 mg/dL (70-110)
[2019-03-28] MEDS: oxyCODONE 5 MG Tablet PO (08:27)
[2019-03-28] MEDS: DAKIN'S SOL HALF STRENGTH (=0.25%) 1 APPLIC TOPICAL ×2 (11:12→22:55)
[2019-03-28] MEDS: Folic Acid/Vitamin B Comp W-C 1 Capsule 1 CAP PO (11:12)
[2019-03-28 12:05] VITALS: PULSE 71; RESP 18; O2SAT 97
[2019-03-28 15:41] VITALS: BP 141/66; PULSE 126; RESP 22; TEMP 35.6; O2SAT 94
[2019-03-28 17:35] VITALS: PULSE 125
--- NOTE | 2019-03-28 17:40 | NURSING ---
pt c/o of wrap that was sent for supper to difficult to chew with no teeth. pt does not have teeth. new order entered for [facility] soft diet.
--- NOTE | 2019-03-28 19:03 | NURSING ---
pt remains in room d/t isolation for all treatments/care.
[2019-03-28] MEDS: LOXAPINE SUCCINATE 25 MG CAPSULE PO (22:52)
[2019-03-29] MEDS: CEFUROXIME AXETIL 250 MG TABLET 500 MG PO ×2 (05:29→17:17)
[2019-03-29 05:30] VITALS: BP 156/60; PULSE 110
[2019-03-29] MEDS: Amiodarone 200 MG Tablet PO (05:30)
[2019-03-29] MEDS: clonazePAM 1 MG Tablet PO ×2 (05:30→22:12)
[2019-03-29] MEDS: Metoprolol Tartrate 25 MG Tablet PO ×2 (05:30→17:17)
[2019-03-29] MEDS: APIXABAN 5 MG TABLET PO ×2 (05:31→17:16)
[2019-03-29] MEDS: Gabapentin 100 MG Capsule 200 MG PO ×3 (05:31→22:12)
[2019-03-29] MEDS: Acetaminophen 500 MG Tablet 1000 MG PO ×3 (05:32→22:12)
[2019-03-29] MEDS: Polyethylene Glycol 3350 17 GM PACKET PO (05:32)
[2019-03-29] MEDS: Senna/Docusate Sodium 1 Tablet PO ×2 (05:32→17:16)
[2019-03-29] MEDS: Ascorbic Acid 500 MG Tablet PO ×2 (05:32→17:16)
[2019-03-29] MEDS: Nystatin Powder 15gm Bottle 1 APPLIC TOPICAL ×2 (05:33→22:12)
[2019-03-29 05:41] VITALS: BP 156/60; PULSE 110; RESP 20; TEMP 36.7; O2SAT 94
[2019-03-29 06:30] LABS: Bedside Glucose 103 mg/dL (70-110)
[2019-03-29] MEDS: Folic Acid/Vitamin B Comp W-C 1 Capsule 1 CAP PO (08:58)
[2019-03-29] MEDS: DAKIN'S SOL HALF STRENGTH (=0.25%) 1 APPLIC TOPICAL (10:32)
[2019-03-29] MEDS: oxyCODONE 5 MG Tablet PO (11:43)
--- NOTE | 2019-03-29 14:13 | CASEMGMT ---
Social Work Spoke with patient's daughter about psych hx and meds. Dtr reports pt has had bad experiences with counseling, psychiatrics/psychologists and now is managed by PCP which has been going well. Dtr reports that pt is only drowsy/lays in bed with lights off when receives psych meds in the morning. Notified nursing to adjust medication time. Explained insurance coverage and options to dtr and confirmed care plan meeting - dtr to receive phone call. Dtr/pt unable to pay for copays out of pocket and estimated DC date will be 04/14 as that is the . Will continue to follow. WILLIAM JerezW
--- NOTE | 2019-03-29 14:27 | NURSING ---
daughter spoke with NADINE mckay regarding pt lethargy. daughter reports that if she takes the klonopin scheduled BID this happens, so Dr Mancera updated and new order for Klonopin 1 mg QHS only instead per daughter.
[2019-03-29 16:00] VITALS: BP 141/58; PULSE 126; RESP 20; TEMP 35.8; O2SAT 94
[2019-03-29 17:17] VITALS: PULSE 126
[2019-03-29] MEDS: LOXAPINE SUCCINATE 25 MG CAPSULE PO (22:12)
[2019-03-29 22:27] VITALS: PULSE 125; RESP 18; O2SAT 94
[2019-03-29 22:35] VITALS: BP 113/67; PULSE 124; RESP 18; TEMP 36.9; O2SAT 94
[2019-03-30 04:31] VITALS: BP 104/56; PULSE 125
[2019-03-30] MEDS: Polyethylene Glycol 3350 17 GM PACKET PO (04:31)
[2019-03-30] MEDS: APIXABAN 5 MG TABLET PO ×2 (04:31→17:31)
[2019-03-30] MEDS: Senna/Docusate Sodium 1 Tablet PO ×2 (04:31→17:31)
[2019-03-30] MEDS: Metoprolol Tartrate 25 MG Tablet PO ×2 (04:31→17:31)
[2019-03-30] MEDS: DAKIN'S SOL HALF STRENGTH (=0.25%) 1 APPLIC TOPICAL ×3 (04:32→22:57)
[2019-03-30] MEDS: Gabapentin 100 MG Capsule 200 MG PO ×3 (04:32→22:43)
[2019-03-30] MEDS: CEFUROXIME AXETIL 250 MG TABLET 500 MG PO ×2 (04:32→17:31)
[2019-03-30] MEDS: Amiodarone 200 MG Tablet PO (04:32)
[2019-03-30] MEDS: Acetaminophen 500 MG Tablet 1000 MG PO ×3 (04:32→22:43)
[2019-03-30] MEDS: Ascorbic Acid 500 MG Tablet PO ×2 (04:32→17:31)
[2019-03-30] MEDS: Nystatin Powder 15gm Bottle 1 APPLIC TOPICAL ×2 (04:41→22:58)
[2019-03-30 06:31] LABS: Bedside Glucose 110 mg/dL (70-110)
[2019-03-30] MEDS: Folic Acid/Vitamin B Comp W-C 1 Capsule 1 CAP PO (09:04)
--- NOTE | 2019-03-30 13:18 | NURSING ---
Dr. Mancera notified of HR and BP, NO for 1L NS bolus
[2019-03-30] MEDS: 0.9% Normal Saline 1,000 ML 500 ML IV (14:08)
[2019-03-30 15:59] VITALS: BP 117/64; PULSE 93; RESP 20; TEMP 36.6; O2SAT 91
[2019-03-30 17:31] VITALS: PULSE 93
[2019-03-30] MEDS: LOXAPINE SUCCINATE 25 MG CAPSULE PO (22:43)
[2019-03-30] MEDS: clonazePAM 1 MG Tablet PO (22:43)
--- NOTE | 2019-03-30 23:59 | NURSING ---
All treatment and care provided to patient in room d/t patient being in isolation.
[2019-03-31] MEDS: Gabapentin 100 MG Capsule 200 MG PO ×3 (05:39→20:34)
[2019-03-31] MEDS: APIXABAN 5 MG TABLET PO ×2 (05:39→17:28)
[2019-03-31] MEDS: Ascorbic Acid 500 MG Tablet PO ×2 (05:39→17:29)
[2019-03-31] MEDS: Acetaminophen 500 MG Tablet 1000 MG PO ×3 (05:39→20:35)
[2019-03-31] MEDS: CEFUROXIME AXETIL 250 MG TABLET 500 MG PO ×2 (05:39→17:28)
[2019-03-31] MEDS: Senna/Docusate Sodium 1 Tablet PO ×2 (05:39→17:28)
[2019-03-31] MEDS: Amiodarone 200 MG Tablet PO (05:39)
[2019-03-31 05:40] VITALS: BP 129/64; PULSE 121
[2019-03-31] MEDS: Metoprolol Tartrate 25 MG Tablet PO (05:40)
[2019-03-31] MEDS: Nystatin Powder 15gm Bottle 1 APPLIC TOPICAL (05:45)
[2019-03-31 06:10] LABS: Bedside Glucose 92 mg/dL (70-110)
[2019-03-31 06:45] LABS: Bedside Glucose 100 mg/dL (70-110)
[2019-03-31] MEDS: Folic Acid/Vitamin B Comp W-C 1 Capsule 1 CAP PO (08:32)
[2019-03-31] MEDS: DAKIN'S SOL HALF STRENGTH (=0.25%) 1 APPLIC TOPICAL ×2 (10:56→20:20)
[2019-03-31] MEDS: oxyCODONE 5 MG Tablet PO ×2 (14:35→22:21)
[2019-03-31 16:00] VITALS: BP 131/78; PULSE 126; RESP 20; TEMP 36.9; O2SAT 92
[2019-03-31 17:28] VITALS: BP 131/78; PULSE 126
[2019-03-31] MEDS: Metoprolol Tartrate 50 MG Tablet PO (17:28)
[2019-03-31] MEDS: LOXAPINE SUCCINATE 25 MG CAPSULE PO (20:34)
[2019-03-31] MEDS: clonazePAM 1 MG Tablet PO (20:35)
--- NOTE | 2019-04-01 03:10 | NURSING ---
All treatment and care provided to patient in room d/t patient being in isolation.
--- NOTE | 2019-04-01 03:10 | NURSING ---
Patient continues to call out for staff to reposition her all night long. Patient has been no help to reposition. Patient states that she can't help. Patient is noted that she is usually able to help with rolling and positioning self. Patient moving self from side of the bed and then calling in staff to help assist back to the edge of the bed near railing. Patient has been noted to sit herself in bed and when staff goes into assist patient and ask her to sit up, patient states I can't sit up.
[2019-04-01] MEDS: Gabapentin 100 MG Capsule 200 MG PO ×3 (05:14→22:12)
[2019-04-01] MEDS: CEFUROXIME AXETIL 250 MG TABLET 500 MG PO ×2 (05:15→18:30)
[2019-04-01] MEDS: Amiodarone 200 MG Tablet PO (05:15)
[2019-04-01] MEDS: Senna/Docusate Sodium 1 Tablet PO ×2 (05:15→18:30)
[2019-04-01] MEDS: APIXABAN 5 MG TABLET PO ×2 (05:15→18:30)
[2019-04-01] MEDS: Acetaminophen 500 MG Tablet 1000 MG PO ×3 (05:15→22:12)
[2019-04-01] MEDS: Ascorbic Acid 500 MG Tablet PO ×2 (05:16→18:30)
[2019-04-01 05:17] VITALS: BP 154/71; PULSE 128
[2019-04-01] MEDS: Metoprolol Tartrate 50 MG Tablet PO (05:17)
[2019-04-01] MEDS: Bisacodyl 5 MG Tablet 10 MG PO (05:17)
[2019-04-01] MEDS: Polyethylene Glycol 3350 17 GM PACKET PO (05:20)
[2019-04-01] MEDS: DAKIN'S SOL HALF STRENGTH (=0.25%) 1 APPLIC TOPICAL ×2 (05:38→18:54)
[2019-04-01 06:25] LABS: Bedside Glucose 120 mg/dL (70-110)
[2019-04-01] MEDS: Folic Acid/Vitamin B Comp W-C 1 Capsule 1 CAP PO (08:36)
[2019-04-01] MEDS: oxyCODONE 5 MG Tablet PO (08:37)
--- NOTE | 2019-04-01 14:08 | NURSING ---
shift superintendent RN had changed dressing to the jojo anal area this am. will assess wounds again tomorrow.
--- NOTE | 2019-04-01 14:16 | CASEMGMT ---
Social Work Completed MDS assessment. Pt scored 27/27 on PHQ-9. Pt expressed being depressed almost every day and having thoughts of being /killing herself d/t the pain and having to ask for help for everything now. Completed [facility] Suicide Assessment. Pt reports she has no plan or method in completed suicide. Pt states she found God now, and would not try to kill herself, as she understands she has a hx. Pt is not actively suicidal and plans to return home living with daughter and AVEL, so she will receive 03/10 care. Pt receives medication management from PCP - upon DC a f/u appt will be made and medication adjustments can be discussed if needed. Will continue to follow and provide ongoing support. WILLIAM JerezW
[2019-04-01 16:00] VITALS: BP 100/45; PULSE 101; RESP 20; TEMP 36.4; O2SAT 93
[2019-04-01 18:29] VITALS: BP 100/45; PULSE 101
[2019-04-01] MEDS: Metoprolol Tartrate 50 MG Tablet 75 MG PO (18:29)
[2019-04-01] MEDS: LOXAPINE SUCCINATE 25 MG CAPSULE PO (22:12)
[2019-04-01] MEDS: clonazePAM 1 MG Tablet PO (22:12)
[2019-04-02 05:57] LABS: Absolute Lymphocyte Count 3.58 X10^3/uL (0.83-4.51); Basophil# 0.09 X10^3/uL; Basophil% 0.7 % (0-1); Eosinophil# 0.17 X10^3/uL; Eosinophils% 1.3 % (0-5); Hematocrit 37.8 % (37-47); Hemoglobin 11.4 g/dL (12.0-15.0); Lymphocyte # 3.58 X10^3/ul (4.0); Lymphocyte % 28.2 % (19-41); Mean Corp Hgb Conc 30.2 g/dL (32-36); Mean Corpuscular Hgb 28.6 pg (27.0-32.0); Mean Corpuscular Volume 94.7 fL (81-99); Mean Platelet Vol. 11.3 fl (6.2-12.0); Monocyte# 0.82 X10^3/uL; Monocyte% 6.5 % (0-10); NRBC Flagged by Analyzer 0 % (0-5); Neutrophil # 7.95 X10^3/uL (2.7-7.7); Neutrophil % 62.7 % (47-70); Platelet Count 349 K/mm3 (150-450); RBC Distribution Width CV 17.2 % (11.6-14.6); RBC Distribution Width SD 60.7 fl (35.1-43.9); Red Blood Count 3.99 M/mm3 (4.2-5.4); White Blood Count 12.7 K/mm3 (4.4-11.0)
[2019-04-02 06:26] LABS: Anion Gap 6 (5-15); BUN 21 mg/dL (7-18); BUN/Creat Ratio 25.8 RATIO (10-20); Calcium,Total 9.3 mg/dL (8.5-10.1); Chloride 108 mmol/L (98-107); Creatinine, Serum 0.82 mg/dL (0.55-1.02); EST Glomerular Filtration Rate 76 mL/min (>60); Est Glom Filt Rate - Afr Amer 92 mL/min (>60); Glucose 113 mg/dL (74-106); Sodium Level 141 mmol/L (136-145)
[2019-04-02 06:35] LABS: Bedside Glucose 100 mg/dL (70-110)
[2019-04-02] MEDS: Acetaminophen 500 MG Tablet 1000 MG PO ×3 (06:46→22:06)
[2019-04-02] MEDS: Senna/Docusate Sodium 1 Tablet PO ×2 (06:46→18:18)
[2019-04-02] MEDS: CEFUROXIME AXETIL 250 MG TABLET 500 MG PO (06:46)
[2019-04-02] MEDS: Ascorbic Acid 500 MG Tablet PO ×2 (06:46→18:18)
[2019-04-02] MEDS: APIXABAN 5 MG TABLET PO ×2 (06:46→18:18)
[2019-04-02] MEDS: Amiodarone 200 MG Tablet PO (06:46)
[2019-04-02] MEDS: DAKIN'S SOL HALF STRENGTH (=0.25%) 1 APPLIC TOPICAL ×2 (06:51→20:41)
[2019-04-02 06:52] VITALS: BP 121/55; PULSE 119
[2019-04-02] MEDS: Metoprolol Tartrate 50 MG Tablet 75 MG PO ×2 (06:52→18:17)
[2019-04-02] MEDS: Polyethylene Glycol 3350 17 GM PACKET PO (06:56)
[2019-04-02] MEDS: Folic Acid/Vitamin B Comp W-C 1 Capsule 1 CAP PO (09:14)
[2019-04-02] MEDS: Tuberculin,Purif.prot.deriv. 50 TU/ML Vial 5 ML ID (09:34)
[2019-04-02] MEDS: Gabapentin 100 MG Capsule 200 MG PO ×2 (13:58→22:06)
--- NOTE | 2019-04-02 14:37 | NURSING ---
Nursing staff had changed dressing already this am. Will try to assess again tomorrow when pt is not working with therapy.
[2019-04-02 16:00] VITALS: BP 103/52; PULSE 93; RESP 20; TEMP 36.4; O2SAT 94
[2019-04-02 18:17] VITALS: PULSE 93
[2019-04-02 20:10] VITALS: PULSE 58; O2SAT 97
[2019-04-02] MEDS: clonazePAM 1 MG Tablet PO (22:05)
[2019-04-02] MEDS: LOXAPINE SUCCINATE 25 MG CAPSULE PO (22:06)
[2019-04-03] MEDS: Polyethylene Glycol 3350 17 GM PACKET PO (05:27)
[2019-04-03] MEDS: Amiodarone 200 MG Tablet PO (05:28)
[2019-04-03] MEDS: Acetaminophen 500 MG Tablet 1000 MG PO ×3 (05:28→21:46)
[2019-04-03] MEDS: Gabapentin 100 MG Capsule 200 MG PO ×2 (05:28→21:47)
[2019-04-03] MEDS: Senna/Docusate Sodium 1 Tablet PO ×2 (05:28→17:42)
[2019-04-03] MEDS: Ascorbic Acid 500 MG Tablet PO ×2 (05:28→17:42)
[2019-04-03] MEDS: APIXABAN 5 MG TABLET PO ×2 (05:32→17:29)
[2019-04-03 06:50] LABS: Bedside Glucose 104 mg/dL (70-110)
[2019-04-03] MEDS: Folic Acid/Vitamin B Comp W-C 1 Capsule 1 CAP PO (09:13)
[2019-04-03 09:14] VITALS: BP 123/59; PULSE 110
[2019-04-03] MEDS: Metoprolol Tartrate 50 MG Tablet 75 MG PO ×2 (09:14→17:31)
[2019-04-03 10:00] VITALS: PULSE 78; RESP 16
[2019-04-03] MEDS: DAKIN'S SOL HALF STRENGTH (=0.25%) 1 APPLIC TOPICAL ×2 (11:34→22:12)
--- NOTE | 2019-04-03 13:12 | NURSING ---
wound photo: jojo anal
[2019-04-03] MEDS: oxyCODONE 5 MG Tablet PO (15:27)
[2019-04-03 16:00] VITALS: BP 114/79; PULSE 78; RESP 20; TEMP 35.8; O2SAT 97
[2019-04-03 17:31] VITALS: BP 123/59; PULSE 110
[2019-04-03] MEDS: LOXAPINE SUCCINATE 25 MG CAPSULE PO (21:48)
[2019-04-03] MEDS: clonazePAM 1 MG Tablet PO (21:49)
--- NOTE | 2019-04-04 00:50 | NURSING ---
All treatment and care provided to patient in room d/t patient being in isolation.
[2019-04-04] MEDS: Senna/Docusate Sodium 1 Tablet PO ×2 (06:05→17:34)
[2019-04-04] MEDS: APIXABAN 5 MG TABLET PO ×2 (06:06→17:34)
[2019-04-04] MEDS: Amiodarone 200 MG Tablet PO (06:06)
[2019-04-04] MEDS: Ascorbic Acid 500 MG Tablet PO ×2 (06:07→17:34)
[2019-04-04] MEDS: Acetaminophen 500 MG Tablet 1000 MG PO ×3 (06:07→21:30)
[2019-04-04 06:11] VITALS: BP 148/82; PULSE 122
[2019-04-04] MEDS: Metoprolol Tartrate 50 MG Tablet 75 MG PO ×2 (06:11→17:33)
[2019-04-04 06:21] LABS: Bedside Glucose 97 mg/dL (70-110)
--- NOTE | 2019-04-04 07:05 | MDS.RN ---
Information for the mds was obtained from review of the clinical record, interview of resident, staff, and direct observation of resident's care.
[2019-04-04] MEDS: Folic Acid/Vitamin B Comp W-C 1 Capsule 1 CAP PO (08:13)
--- NOTE | 2019-04-04 08:19 | NURSING ---
RED RASH TO PT LEFT WRIST WERE ID BAND IS. REMOVED OLD ID BAND AND REPLACED NEW TO RIGHT WRIST. AMAYA DALY AWARE.
--- NOTE | 2019-04-04 09:29 | NURSING ---
all treatment and therapy provided in pt room d/t isolation
[2019-04-04] MEDS: DAKIN'S SOL HALF STRENGTH (=0.25%) 1 APPLIC TOPICAL ×2 (09:35→21:57)
--- NOTE | 2019-04-04 10:26 | NURSING ---
dressing done to buttock wound per order. no drng noted this AM. daughter at bedside. After done with drsg change, pt assisted to sitting position in bed per daughter assist.
--- NOTE | 2019-04-04 12:46 | CASEMGMT ---
Social Work IDT met with patient and daughter for care plan meeting. Discussed patient's progress in therapy. Pt is SBA for bed mobility, min assist fro transfers, walking 1-5 ft with FWW but limited with pain and contracted knees. Dtr states pt was able to walk 5-10ft with FWW prior, but mostly spends time in the w/c or bed. Pt is max for LE bathing, CGA for UE bathing, mod for LE dressing, min for UE dressing. Pt typically wears gowns. Pt is mod for toilet transfers and max for toileting tasks. Pt is able to sit for 30 minutes at time, but limited d/t pain and surgical wound, and can stand for 30 seconds. Therapy recommending a ramp to enter the home as pt cannot do steps. Provided resources to dtr for a ramp. Contacted S to verify Medicaid benefits - awaiting return phone call. Explained Medicare coverage. Will assist with DC plans and emotional support. Will continue to follow. WILLIAM Jerez TESTS SUPERINTENDENT
--- NOTE | 2019-04-04 13:30 | NURSING ---
Addendum entered by Emerita Wray 04/04/19 14:20: drsg changed by wound nurse Original Note: staff reported pt incont of bowels, dressing changed again to coccyx/buttock wound per order.
[2019-04-04 16:00] VITALS: BP 133/60; PULSE 120; RESP 19; TEMP 36.6; O2SAT 96
[2019-04-04 17:33] VITALS: PULSE 122
[2019-04-04] MEDS: clonazePAM 1 MG Tablet PO (21:30)
[2019-04-04] MEDS: LOXAPINE SUCCINATE 25 MG CAPSULE PO (21:30)
--- NOTE | 2019-04-05 00:25 | NURSING ---
Pt remained in contact isolation during shift d/t secretions. All care provided in room.
[2019-04-05] MEDS: Polyethylene Glycol 3350 17 GM PACKET PO (04:33)
[2019-04-05] MEDS: Amiodarone 200 MG Tablet PO (04:33)
[2019-04-05] MEDS: Acetaminophen 500 MG Tablet 1000 MG PO ×3 (04:35→22:53)
[2019-04-05] MEDS: Ascorbic Acid 500 MG Tablet PO ×2 (04:35→17:43)
[2019-04-05] MEDS: Senna/Docusate Sodium 1 Tablet PO ×2 (04:37→17:42)
[2019-04-05] MEDS: APIXABAN 5 MG TABLET PO ×2 (04:37→17:41)
[2019-04-05 04:51] VITALS: BP 164/91; PULSE 121
[2019-04-05] MEDS: Metoprolol Tartrate 50 MG Tablet 75 MG PO ×2 (04:51→17:41)
[2019-04-05 06:25] LABS: Bedside Glucose 121 mg/dL (70-110)
[2019-04-05] MEDS: oxyCODONE 5 MG Tablet PO ×3 (08:19→23:01)
[2019-04-05] MEDS: Folic Acid/Vitamin B Comp W-C 1 Capsule 1 CAP PO (08:19)
[2019-04-05] MEDS: DAKIN'S SOL HALF STRENGTH (=0.25%) 1 APPLIC TOPICAL ×2 (12:17→22:55)
[2019-04-05 16:00] VITALS: BP 99/54; PULSE 89; RESP 18; TEMP 36.8; O2SAT 93
[2019-04-05 17:41] VITALS: PULSE 122
[2019-04-05] MEDS: clonazePAM 1 MG Tablet PO (22:52)
[2019-04-05] MEDS: LOXAPINE SUCCINATE 25 MG CAPSULE PO (22:52)
--- NOTE | 2019-04-06 02:42 | NURSING ---
All treatment and care provided to patient in room d/t patient being in isolation.
[2019-04-06] MEDS: Senna/Docusate Sodium 1 Tablet PO ×2 (05:21→18:11)
[2019-04-06 05:22] VITALS: BP 108/43; PULSE 106
[2019-04-06] MEDS: Metoprolol Tartrate 50 MG Tablet 75 MG PO ×2 (05:22→18:10)
[2019-04-06] MEDS: Ascorbic Acid 500 MG Tablet PO ×2 (05:22→18:10)
[2019-04-06] MEDS: Acetaminophen 500 MG Tablet 1000 MG PO ×3 (05:22→22:13)
[2019-04-06] MEDS: APIXABAN 5 MG TABLET PO ×2 (05:22→18:09)
[2019-04-06] MEDS: Amiodarone 200 MG Tablet PO (05:23)
[2019-04-06 06:46] LABS: Bedside Glucose 117 mg/dL (70-110)
[2019-04-06] MEDS: Folic Acid/Vitamin B Comp W-C 1 Capsule 1 CAP PO (09:25)
[2019-04-06] MEDS: DAKIN'S SOL HALF STRENGTH (=0.25%) 1 APPLIC TOPICAL ×2 (11:49→22:13)
[2019-04-06 15:04] VITALS: BP 113/48; PULSE 72; RESP 18; TEMP 36.2; O2SAT 96
[2019-04-06 18:10] VITALS: BP 113/48; PULSE 72
[2019-04-06] MEDS: clonazePAM 1 MG Tablet PO (22:13)
[2019-04-06] MEDS: LOXAPINE SUCCINATE 25 MG CAPSULE PO (22:13)
[2019-04-07 05:26] VITALS: BP 136/52; PULSE 112
[2019-04-07 05:27] VITALS: BP 136/52; PULSE 112
[2019-04-07] MEDS: Acetaminophen 500 MG Tablet 1000 MG PO ×3 (05:27→22:18)
[2019-04-07] MEDS: Metoprolol Tartrate 50 MG Tablet 75 MG PO ×2 (05:27→17:41)
[2019-04-07] MEDS: Amiodarone 200 MG Tablet PO (05:28)
[2019-04-07] MEDS: Senna/Docusate Sodium 1 Tablet PO ×2 (05:28→17:42)
[2019-04-07] MEDS: Ascorbic Acid 500 MG Tablet PO ×2 (05:28→17:44)
[2019-04-07] MEDS: APIXABAN 5 MG TABLET PO ×2 (05:28→17:42)
[2019-04-07 06:26] LABS: Bedside Glucose 99 mg/dL (70-110)
[2019-04-07] MEDS: Folic Acid/Vitamin B Comp W-C 1 Capsule 1 CAP PO (08:49)
[2019-04-07] MEDS: DAKIN'S SOL HALF STRENGTH (=0.25%) 1 APPLIC TOPICAL ×2 (13:17→22:21)
[2019-04-07 14:40] VITALS: RESP 14
[2019-04-07 15:51] VITALS: BP 142/75; PULSE 123; RESP 18; TEMP 36.4; O2SAT 92
[2019-04-07 17:41] VITALS: BP 164/88; PULSE 128
[2019-04-07] MEDS: LOXAPINE SUCCINATE 25 MG CAPSULE PO (22:18)
[2019-04-07] MEDS: clonazePAM 1 MG Tablet PO (22:19)
--- NOTE | 2019-04-07 23:06 | NURSING ---
dressing changed per order
[2019-04-07] MEDS: oxyCODONE 5 MG Tablet PO (23:18)
[2019-04-08] MEDS: Ascorbic Acid 500 MG Tablet PO ×2 (04:38→17:01)
[2019-04-08] MEDS: APIXABAN 5 MG TABLET PO ×2 (04:38→17:01)
[2019-04-08 04:39] VITALS: BP 136/55; PULSE 118
[2019-04-08] MEDS: Acetaminophen 500 MG Tablet 1000 MG PO ×3 (04:39→20:54)
[2019-04-08] MEDS: Metoprolol Tartrate 50 MG Tablet 75 MG PO (04:39)
[2019-04-08] MEDS: Amiodarone 200 MG Tablet PO (04:39)
[2019-04-08 06:26] LABS: Bedside Glucose 105 mg/dL (70-110)
[2019-04-08] MEDS: Folic Acid/Vitamin B Comp W-C 1 Capsule 1 CAP PO (08:02)
[2019-04-08] MEDS: DAKIN'S SOL HALF STRENGTH (=0.25%) 1 APPLIC TOPICAL ×2 (13:40→21:06)
--- NOTE | 2019-04-08 13:40 | NURSING ---
pt remains in isolation, all care/treaments/therapy provided in pt room
--- NOTE | 2019-04-08 15:06 | NURSING ---
wound photo: jojo anal
[2019-04-08 16:00] VITALS: BP 79/41; PULSE 91; RESP 20; TEMP 36.1; O2SAT 95
[2019-04-08 17:01] VITALS: BP 79/41; PULSE 91
[2019-04-08] MEDS: Senna/Docusate Sodium 1 Tablet PO (17:01)
--- NOTE | 2019-04-08 17:03 | NURSING ---
jacques casper d/t low BP, HR 91. will update dr weston
[2019-04-08] MEDS: 0.9% Normal Saline 1,000 ML 999 ML IV (18:28)
[2019-04-08] MEDS: clonazePAM 1 MG Tablet PO (20:54)
[2019-04-08] MEDS: LOXAPINE SUCCINATE 25 MG CAPSULE PO (20:54)
[2019-04-08 21:11] VITALS: BP 142/75; PULSE 125
--- NOTE | 2019-04-09 02:17 | NURSING ---
All treatment and care provided to patient in room d/t patient being in isolation.
[2019-04-09 05:35] LABS: Absolute Lymphocyte Count 3.19 X10^3/uL (0.83-4.51); Absolute Neutrophil Count 6.1 X10^3/uL (2.0-7.7); Basophil# 0.12 X10^3/uL; Basophil% 1.2 % (0-1); Eosinophil# 0.26 X10^3/uL; Eosinophils% 2.5 % (0-5); Hematocrit 35.4 % (37-47); Lymphocyte # 3.19 X10^3/ul (4.0); Lymphocyte % 30.8 % (19-41); Mean Corp Hgb Conc 31.1 g/dL (32-36); Mean Corpuscular Hgb 29.5 pg (27.0-32.0); Mean Corpuscular Volume 94.9 fL (81-99); Mean Platelet Vol. 11.1 fl (6.2-12.0); Monocyte# 0.64 X10^3/uL; Monocyte% 6.2 % (0-10); NRBC Flagged by Analyzer 0 % (0-5); Neutrophil # 6.08 X10^3/uL (2.7-7.7); Neutrophil % 58.6 % (47-70); Platelet Count 283 K/mm3 (150-450); RBC Distribution Width CV 17.1 % (11.6-14.6); RBC Distribution Width SD 59.2 fl (35.1-43.9); Red Blood Count 3.73 M/mm3 (4.2-5.4); White Blood Count 10.4 K/mm3 (4.4-11.0)
[2019-04-09] MEDS: APIXABAN 5 MG TABLET PO ×2 (05:46→17:34)
[2019-04-09] MEDS: Acetaminophen 500 MG Tablet 1000 MG PO ×3 (05:46→20:25)
[2019-04-09] MEDS: Ascorbic Acid 500 MG Tablet PO ×2 (05:47→17:36)
[2019-04-09] MEDS: Senna/Docusate Sodium 1 Tablet PO (05:47)
[2019-04-09] MEDS: Amiodarone 200 MG Tablet PO (05:47)
[2019-04-09 05:50] VITALS: BP 137/69; PULSE 128
[2019-04-09] MEDS: Metoprolol Tartrate 50 MG Tablet 75 MG PO ×2 (05:50→17:36)
[2019-04-09 05:51] LABS: Anion Gap 6 (5-15); BUN 15 mg/dL (7-18); BUN/Creat Ratio 23.1 RATIO (10-20); Calcium,Total 8.8 mg/dL (8.5-10.1); Chloride 107 mmol/L (98-107); Creatinine, Serum 0.65 mg/dL (0.55-1.02); EST Glomerular Filtration Rate 99 mL/min (>60); Est Glom Filt Rate - Afr Amer 120 mL/min (>60); Estimated Creatinine Clearance 79.48 ml/min; Glucose 105 mg/dL (74-106); Potassium 3.9 mmol/L (3.5-5.1); Sodium Level 139 mmol/L (136-145)
[2019-04-09 06:35] LABS: Bedside Glucose 108 mg/dL (70-110)
[2019-04-09] MEDS: Folic Acid/Vitamin B Comp W-C 1 Capsule 1 CAP PO (08:21)
[2019-04-09 10:00] VITALS: RESP 16; O2SAT 94
[2019-04-09] MEDS: DAKIN'S SOL HALF STRENGTH (=0.25%) 1 APPLIC TOPICAL ×2 (10:22→20:27)
--- NOTE | 2019-04-09 13:10 | NURSING ---
ALL CARE DONE IN ROOM DO TO PT IN PRECAUTIONS.
[2019-04-09 16:00] VITALS: BP 131/77; PULSE 120; RESP 20; TEMP 36.1; O2SAT 93
--- NOTE | 2019-04-09 16:27 | CHAPLAIN ---
patient was sleeping; did not awaken pt
[2019-04-09 17:36] VITALS: PULSE 120
[2019-04-09] MEDS: LOXAPINE SUCCINATE 25 MG CAPSULE PO (20:25)
[2019-04-09] MEDS: clonazePAM 1 MG Tablet PO (20:25)
--- NOTE | 2019-04-09 22:35 | NURSING ---
All treatment and care provided to patient in room d/t patient being in isolation.
[2019-04-10] MEDS: Acetaminophen 500 MG Tablet 1000 MG PO ×3 (05:55→23:13)
[2019-04-10 05:56] VITALS: BP 141/75; PULSE 126
[2019-04-10] MEDS: Ascorbic Acid 500 MG Tablet PO ×2 (05:56→17:21)
[2019-04-10] MEDS: Metoprolol Tartrate 50 MG Tablet 75 MG PO ×2 (05:56→17:21)
[2019-04-10] MEDS: APIXABAN 5 MG TABLET PO ×2 (05:56→17:20)
[2019-04-10] MEDS: Amiodarone 200 MG Tablet PO (05:56)
[2019-04-10 06:25] LABS: Bedside Glucose 116 mg/dL (70-110)
[2019-04-10] MEDS: Folic Acid/Vitamin B Comp W-C 1 Capsule 1 CAP PO (08:53)
[2019-04-10] MEDS: DAKIN'S SOL HALF STRENGTH (=0.25%) 1 APPLIC TOPICAL ×2 (11:57→23:12)
[2019-04-10 16:00] VITALS: BP 119/67; PULSE 118; RESP 20; TEMP 36.4; O2SAT 98
[2019-04-10] MEDS: Senna/Docusate Sodium 1 Tablet PO (17:20)
[2019-04-10 17:21] VITALS: BP 119/67; PULSE 118
--- NOTE | 2019-04-10 22:54 | NURSING ---
ALL CARE DONE IN ROOM DO TO PT IN PRECAUTIONS.
[2019-04-10] MEDS: LOXAPINE SUCCINATE 25 MG CAPSULE PO (23:13)
[2019-04-10] MEDS: clonazePAM 1 MG Tablet PO (23:15)
[2019-04-11] MEDS: APIXABAN 5 MG TABLET PO ×2 (05:25→16:29)
[2019-04-11] MEDS: Senna/Docusate Sodium 1 Tablet PO ×2 (05:25→16:33)
[2019-04-11] MEDS: Acetaminophen 500 MG Tablet 1000 MG PO ×3 (05:25→21:42)
[2019-04-11] MEDS: Amiodarone 200 MG Tablet PO (05:25)
[2019-04-11] MEDS: Ascorbic Acid 500 MG Tablet PO ×2 (05:26→16:30)
[2019-04-11 06:36] LABS: Bedside Glucose 84 mg/dL (70-110)
[2019-04-11] MEDS: oxyCODONE 5 MG Tablet PO (07:38)
[2019-04-11] MEDS: Folic Acid/Vitamin B Comp W-C 1 Capsule 1 CAP PO (07:40)
[2019-04-11 09:00] VITALS: BP 121/49; PULSE 119
[2019-04-11 09:22] VITALS: BP 121/49; PULSE 119
[2019-04-11] MEDS: Metoprolol Tartrate 50 MG Tablet 75 MG PO ×2 (09:22→16:32)
--- NOTE | 2019-04-11 09:25 | NURSING ---
THIS NURSE TALKED TO AMAYA COUCH/WOUND NURSE AND YONAS FROM INFECTIOUS DISEASE. PT CAN COME OUT OF ROOM FOR THERAPY IF SHE HAS ATTENDS AND PANTS ON. MUST BE CONTAINED AND NO LEAKAGE. ALL CARE GIVEN IN ROOM DUE TO PT IN PRECAUTIONS. REPORTED TO AMAYA MORAN
[2019-04-11] MEDS: DAKIN'S SOL HALF STRENGTH (=0.25%) 1 APPLIC TOPICAL ×2 (14:16→21:44)
[2019-04-11 15:24] VITALS: BP 124/52; PULSE 82; RESP 16; TEMP 36.5; O2SAT 94
[2019-04-11 16:32] VITALS: PULSE 82
[2019-04-11] MEDS: LOXAPINE SUCCINATE 25 MG CAPSULE PO (21:42)
[2019-04-11] MEDS: clonazePAM 1 MG Tablet PO (21:42)
--- NOTE | 2019-04-12 00:42 | NURSING ---
All treatment and care provided to patient in room d/t patient being in isolation.
[2019-04-12] MEDS: Acetaminophen 500 MG Tablet 1000 MG PO ×3 (05:41→19:50)
[2019-04-12] MEDS: APIXABAN 5 MG TABLET PO ×2 (05:41→17:01)
[2019-04-12] MEDS: Senna/Docusate Sodium 1 Tablet PO ×2 (05:42→17:02)
[2019-04-12] MEDS: Amiodarone 200 MG Tablet PO (05:42)
[2019-04-12] MEDS: Ascorbic Acid 500 MG Tablet PO ×2 (05:42→17:01)
[2019-04-12 05:43] VITALS: BP 133/63; PULSE 126
[2019-04-12] MEDS: Metoprolol Tartrate 50 MG Tablet 75 MG PO ×2 (05:43→17:00)
[2019-04-12 06:31] LABS: Bedside Glucose 116 mg/dL (70-110)
[2019-04-12] MEDS: Folic Acid/Vitamin B Comp W-C 1 Capsule 1 CAP PO (09:36)
[2019-04-12] MEDS: DAKIN'S SOL HALF STRENGTH (=0.25%) 1 APPLIC TOPICAL ×2 (11:39→19:54)
[2019-04-12 15:44] VITALS: BP 114/51; PULSE 85; RESP 20; TEMP 35.9; O2SAT 98
[2019-04-12 17:00] VITALS: BP 114/51; PULSE 85
[2019-04-12] MEDS: clonazePAM 1 MG Tablet PO (19:56)
[2019-04-12] MEDS: LOXAPINE SUCCINATE 25 MG CAPSULE PO (19:56)
[2019-04-13] MEDS: Acetaminophen 500 MG Tablet 1000 MG PO ×3 (05:43→20:05)
[2019-04-13 05:44] VITALS: BP 136/44; PULSE 93
[2019-04-13] MEDS: Metoprolol Tartrate 50 MG Tablet 75 MG PO ×2 (05:44→17:18)
[2019-04-13] MEDS: Senna/Docusate Sodium 1 Tablet PO (05:44)
[2019-04-13] MEDS: APIXABAN 5 MG TABLET PO ×2 (05:44→17:16)
[2019-04-13] MEDS: Ascorbic Acid 500 MG Tablet PO ×2 (05:44→17:18)
[2019-04-13] MEDS: Amiodarone 200 MG Tablet PO (05:44)
[2019-04-13 06:15] LABS: Bedside Glucose 120 mg/dL (70-110)
[2019-04-13] MEDS: Folic Acid/Vitamin B Comp W-C 1 Capsule 1 CAP PO (08:15)
--- NOTE | 2019-04-13 08:21 | NURSING ---
ALL CARE GIVEN IN ROOM DUE TO PT IN PRECAUTIONS.
[2019-04-13] MEDS: DAKIN'S SOL HALF STRENGTH (=0.25%) 1 APPLIC TOPICAL ×2 (10:49→20:07)
[2019-04-13 15:34] VITALS: BP 127/63; PULSE 84; RESP 20; TEMP 36.6; O2SAT 94
--- NOTE | 2019-04-13 16:49 | NURSING ---
pt encouraged to get up OOB for meals but insists on sitting up on edge of bed. Pt always requesting staff to turn her and pt physically capable of moving self in bed. This nurse found pt turning from her RT side to LT side on own. she will even sit up in bed w/out any problems. will continue to encourage pt to get up. alarm in place.
[2019-04-13 17:18] VITALS: PULSE 84
[2019-04-13] MEDS: LOXAPINE SUCCINATE 25 MG CAPSULE PO (20:04)
[2019-04-13] MEDS: clonazePAM 1 MG Tablet PO (20:06)
[2019-04-14 06:09] VITALS: BP 139/76; PULSE 122
[2019-04-14] MEDS: Metoprolol Tartrate 50 MG Tablet 75 MG PO ×2 (06:09→17:20)
[2019-04-14] MEDS: Polyethylene Glycol 3350 17 GM PACKET PO (06:09)
[2019-04-14] MEDS: Senna/Docusate Sodium 1 Tablet PO ×2 (06:09→17:21)
[2019-04-14] MEDS: Acetaminophen 500 MG Tablet 1000 MG PO ×3 (06:09→20:13)
[2019-04-14] MEDS: APIXABAN 5 MG TABLET PO ×2 (06:09→17:20)
[2019-04-14] MEDS: Amiodarone 200 MG Tablet PO (06:09)
[2019-04-14] MEDS: Ascorbic Acid 500 MG Tablet PO ×2 (06:09→17:21)
[2019-04-14 06:26] LABS: Bedside Glucose 102 mg/dL (70-110)
[2019-04-14] MEDS: Folic Acid/Vitamin B Comp W-C 1 Capsule 1 CAP PO (07:51)
[2019-04-14] MEDS: DAKIN'S SOL HALF STRENGTH (=0.25%) 1 APPLIC TOPICAL ×2 (09:15→20:17)
[2019-04-14 09:33] VITALS: PULSE 72; RESP 18; O2SAT 93
--- NOTE | 2019-04-14 11:13 | NURSING ---
ALL CARE GIVEN IN ROOM DUE TO PT IN PRECAUTIONS.
[2019-04-14 14:19] VITALS: BP 109/60; PULSE 90; RESP 18; TEMP 36.6; O2SAT 93
--- NOTE | 2019-04-14 16:20 | NURSING ---
pt calling out many times throughout shift wanting staff to turn her. pt capable of turning self. Pt stated she uses day bed at home and turns self at home. Pt assisted to to get pt OOB since pt stays in bed much of shift, needs much encouragement. Pt sat up in approximately 45 minutes and tried to self transfer to bed. alarm sounding and staff changed linens on bed and assisted pt back to bed. as staff leaving room pt asked for blinds on window to be shut. Expressed to pt that it is only 4pm in afternoon, the sun is shining. Pt does not like blinds open during day. will continue to encourage and educate pt on importance of getting OOB couple times a day.
[2019-04-14 17:20] VITALS: PULSE 90
[2019-04-14] MEDS: clonazePAM 1 MG Tablet PO (20:13)
[2019-04-14] MEDS: LOXAPINE SUCCINATE 25 MG CAPSULE PO (20:13)
[2019-04-15] MEDS: Polyethylene Glycol 3350 17 GM PACKET PO (04:00)
[2019-04-15 04:05] VITALS: BP 141/62; PULSE 105
[2019-04-15] MEDS: Acetaminophen 500 MG Tablet 1000 MG PO ×3 (04:05→21:06)
[2019-04-15] MEDS: Metoprolol Tartrate 50 MG Tablet 75 MG PO ×2 (04:05→17:45)
[2019-04-15] MEDS: APIXABAN 5 MG TABLET PO ×2 (04:05→17:46)
[2019-04-15] MEDS: Amiodarone 200 MG Tablet PO (04:05)
[2019-04-15] MEDS: Ascorbic Acid 500 MG Tablet PO ×2 (04:05→17:46)
[2019-04-15] MEDS: Senna/Docusate Sodium 1 Tablet PO ×2 (04:05→17:46)
[2019-04-15 06:11] LABS: Bedside Glucose 113 mg/dL (70-110)
[2019-04-15] MEDS: Folic Acid/Vitamin B Comp W-C 1 Capsule 1 CAP PO (08:23)
[2019-04-15 14:19] VITALS: BP 113/56; PULSE 115; RESP 18; TEMP 36.6; O2SAT 90
[2019-04-15] MEDS: DAKIN'S SOL HALF STRENGTH (=0.25%) 1 APPLIC TOPICAL ×2 (14:49→21:07)
--- NOTE | 2019-04-15 15:01 | CHAPLAIN ---
patient is sleeping; did not disturb
--- NOTE | 2019-04-15 15:15 | NURSING ---
wound photo: jojo anal/buttocks
[2019-04-15 17:45] VITALS: BP 113/56; PULSE 115
[2019-04-15] MEDS: LOXAPINE SUCCINATE 25 MG CAPSULE PO (21:06)
[2019-04-15] MEDS: clonazePAM 1 MG Tablet PO (21:06)
[2019-04-16 05:40] LABS: Bedside Glucose 97 mg/dL (70-110)
[2019-04-16] MEDS: Amiodarone 200 MG Tablet PO (05:44)
[2019-04-16] MEDS: APIXABAN 5 MG TABLET PO ×2 (05:44→17:40)
[2019-04-16] MEDS: Acetaminophen 500 MG Tablet 1000 MG PO ×3 (05:45→20:44)
[2019-04-16] MEDS: Senna/Docusate Sodium 1 Tablet PO ×2 (05:45→17:40)
[2019-04-16] MEDS: Ascorbic Acid 500 MG Tablet PO ×2 (05:45→17:40)
[2019-04-16 05:46] VITALS: BP 138/57; PULSE 124
[2019-04-16] MEDS: Metoprolol Tartrate 50 MG Tablet 75 MG PO ×2 (05:46→17:39)
[2019-04-16 06:08] LABS: Absolute Lymphocyte Count 3.15 X10^3/uL (0.83-4.51); Absolute Neutrophil Count 6.6 X10^3/uL (2.0-7.7); Basophil# 0.07 X10^3/uL; Basophil% 0.6 % (0-1); Eosinophil# 0.27 X10^3/uL; Eosinophils% 2.5 % (0-5); Hematocrit 34.1 % (37-47); Hemoglobin 10.5 g/dL (12.0-15.0); Lymphocyte # 3.15 X10^3/ul (4.0); Lymphocyte % 28.9 % (19-41); Mean Corp Hgb Conc 30.8 g/dL (32-36); Mean Corpuscular Hgb 28.8 pg (27.0-32.0); Mean Corpuscular Volume 93.4 fL (81-99); Monocyte# 0.75 X10^3/uL; Monocyte% 6.9 % (0-10); NRBC Flagged by Analyzer 0 % (0-5); Neutrophil % 60.6 % (47-70); Platelet Count 213 K/mm3 (150-450); RBC Distribution Width CV 16.9 % (11.6-14.6); RBC Distribution Width SD 58.4 fl (35.1-43.9); Red Blood Count 3.65 M/mm3 (4.2-5.4); White Blood Count 10.9 K/mm3 (4.4-11.0)
[2019-04-16 06:23] LABS: Anion Gap 4 (5-15); BUN 26 mg/dL (7-18); BUN/Creat Ratio 36.5 RATIO (10-20); Calcium,Total 8.8 mg/dL (8.5-10.1); Chloride 108 mmol/L (98-107); Creatinine, Serum 0.71 mg/dL (0.55-1.02); EST Glomerular Filtration Rate 89 mL/min (>60); Est Glom Filt Rate - Afr Amer 108 mL/min (>60); Estimated Creatinine Clearance 72.76 ml/min; Glucose 102 mg/dL (74-106); Potassium 4.2 mmol/L (3.5-5.1); Sodium Level 139 mmol/L (136-145)
[2019-04-16] MEDS: Folic Acid/Vitamin B Comp W-C 1 Capsule 1 CAP PO (09:30)
[2019-04-16] MEDS: DAKIN'S SOL HALF STRENGTH (=0.25%) 1 APPLIC TOPICAL ×2 (11:12→20:47)
[2019-04-16 15:38] VITALS: BP 128/64; PULSE 117; RESP 14; TEMP 36.4; O2SAT 93
--- NOTE | 2019-04-16 16:08 | CASEMGMT ---
Social Work Spoke with patient's dtr to discuss DC plans and pt's progress. Dtr informed SW she switched insurance companies to [employer] Medicare replacement plan effective 04/13. Explained that would change coverage for pt in [facility] and to send insurance cards to SW as soon as possible as precert needs obtained. Upon receiving the insurance cards, TCU is not in network with specific [employer] plan. Contacted dtr to inform her and that pt has had not coverage from 04/13 to 04/16. Issued LCD 04/18, DC 04/19. Explained financial liability to begin 04/19. Advised of appeal rights and [employer] contact information. Dtr understandable of DC date and stated would attempt to call [employer] to cancel plan so pt could remain under Medicare benefit. Will continue to follow. WILLIAM JerezW
[2019-04-16 17:39] VITALS: BP 128/64; PULSE 117
[2019-04-16] MEDS: LOXAPINE SUCCINATE 25 MG CAPSULE PO (20:44)
[2019-04-16] MEDS: clonazePAM 1 MG Tablet PO (20:44)
[2019-04-17] MEDS: Amiodarone 200 MG Tablet PO (05:08)
[2019-04-17] MEDS: Acetaminophen 500 MG Tablet 1000 MG PO ×3 (05:08→22:25)
[2019-04-17] MEDS: Ascorbic Acid 500 MG Tablet PO ×2 (05:09→17:13)
[2019-04-17] MEDS: APIXABAN 5 MG TABLET PO ×2 (05:09→17:12)
[2019-04-17] MEDS: Senna/Docusate Sodium 1 Tablet PO ×2 (05:10→17:14)
[2019-04-17 05:12] VITALS: BP 139/67; PULSE 124
[2019-04-17] MEDS: Metoprolol Tartrate 50 MG Tablet 75 MG PO ×2 (05:12→17:12)
[2019-04-17 06:01] LABS: Bedside Glucose 103 mg/dL (70-110)
[2019-04-17] MEDS: DAKIN'S SOL HALF STRENGTH (=0.25%) 1 APPLIC TOPICAL ×2 (06:30→22:32)
[2019-04-17] MEDS: Folic Acid/Vitamin B Comp W-C 1 Capsule 1 CAP PO (08:07)
[2019-04-17] MEDS: Iron Polysaccharide Complex 150 MG CAPSULE PO (08:07)
--- NOTE | 2019-04-17 08:12 | NURSING ---
ALL CARE GIVEN IN ROOM DUE TO PT IN PRECAUTIONS .
--- NOTE | 2019-04-17 09:16 | CASEMGMT ---
Social Work Left message with dtr for update on insurance coverage and DC plans. Awaiting return phone call. WILLIAM JerezW
[2019-04-17 14:29] VITALS: BP 137/69; PULSE 102; RESP 18; TEMP 36.6; O2SAT 94
[2019-04-17 17:12] VITALS: BP 137/69; PULSE 102
[2019-04-17] MEDS: Nystatin Powder 15gm Bottle 1 APPLIC TOPICAL (17:17)
[2019-04-17] MEDS: clonazePAM 1 MG Tablet PO (22:23)
[2019-04-17] MEDS: LOXAPINE SUCCINATE 25 MG CAPSULE PO (22:25)
[2019-04-18 04:54] VITALS: BP 110/54; PULSE 121
[2019-04-18] MEDS: Metoprolol Tartrate 50 MG Tablet 75 MG PO ×2 (04:54→16:58)
[2019-04-18] MEDS: Acetaminophen 500 MG Tablet 1000 MG PO ×3 (04:54→22:36)
[2019-04-18] MEDS: Polyethylene Glycol 3350 17 GM PACKET PO (04:54)
[2019-04-18] MEDS: Amiodarone 200 MG Tablet PO (04:54)
[2019-04-18] MEDS: Ascorbic Acid 500 MG Tablet PO ×2 (04:55→16:59)
[2019-04-18] MEDS: Senna/Docusate Sodium 1 Tablet PO ×2 (04:55→16:59)
[2019-04-18] MEDS: APIXABAN 5 MG TABLET PO ×2 (04:56→16:58)
[2019-04-18] MEDS: Nystatin Powder 15gm Bottle 1 APPLIC TOPICAL ×2 (04:59→22:55)
[2019-04-18 06:25] LABS: Bedside Glucose 102 mg/dL (70-110)
--- NOTE | 2019-04-18 08:02 | NURSING ---
ALL CARE GIVEN IN ROOM DUE TO PT IN PRECAUTIONS.
[2019-04-18] MEDS: Folic Acid/Vitamin B Comp W-C 1 Capsule 1 CAP PO (08:03)
[2019-04-18] MEDS: Iron Polysaccharide Complex 150 MG CAPSULE PO (08:03)
[2019-04-18] MEDS: DAKIN'S SOL HALF STRENGTH (=0.25%) 1 APPLIC TOPICAL ×2 (10:59→22:54)
[2019-04-18 11:22] VITALS: PULSE 112; O2SAT 96
--- NOTE | 2019-04-18 12:13 | CASEMGMT ---
Social Work Phone call to pt dgt to discuss discharge plan. VM left with request to return call. NADINE Gonzalez
[2019-04-18 14:21] VITALS: BP 108/55; PULSE 119; RESP 18; TEMP 35.8; O2SAT 97
--- NOTE | 2019-04-18 16:52 | CASEMGMT ---
Social Work KAILASH spoke with pt dgt. Dgt stating she spoke with insurance and insurance informed her a contract would be granted with assistance of PCP office. SW inquired with dgt what d/c plan was if insurance did not provide contract. Dgt uncertain at this time. SW offered pt home with home health or in network SNF. Pt dgt did not make determination as she is certain insurance will cover stay at [facility]. SW called PCP and they stated they would not be able to help with insurance and will not be calling insurance company. Phone call placed to dgt to discuss d/c options home with hhs vs SNF with no answer. Left VM with request to return call to KAILASH. NADINE Gonzalez
[2019-04-18 16:58] VITALS: PULSE 119
[2019-04-18] MEDS: clonazePAM 1 MG Tablet PO (22:36)
[2019-04-18] MEDS: LOXAPINE SUCCINATE 25 MG CAPSULE PO (22:36)
[2019-04-19 06:21] LABS: Bedside Glucose 105 mg/dL (70-110)
[2019-04-19] MEDS: Ascorbic Acid 500 MG Tablet PO ×2 (06:44→17:07)
[2019-04-19] MEDS: Acetaminophen 500 MG Tablet 1000 MG PO ×3 (06:44→21:44)
[2019-04-19] MEDS: Polyethylene Glycol 3350 17 GM PACKET PO (06:44)
[2019-04-19] MEDS: APIXABAN 5 MG TABLET PO ×2 (06:45→17:05)
[2019-04-19] MEDS: Senna/Docusate Sodium 1 Tablet PO (06:45)
[2019-04-19] MEDS: Amiodarone 200 MG Tablet PO (06:45)
[2019-04-19 06:52] VITALS: BP 141/59; PULSE 127
[2019-04-19] MEDS: Metoprolol Tartrate 50 MG Tablet 75 MG PO (06:52)
[2019-04-19] MEDS: Folic Acid/Vitamin B Comp W-C 1 Capsule 1 CAP PO (09:23)
[2019-04-19] MEDS: Iron Polysaccharide Complex 150 MG CAPSULE PO (10:39)
[2019-04-19] MEDS: Nystatin Powder 15gm Bottle 1 APPLIC TOPICAL ×2 (11:26→21:47)
[2019-04-19] MEDS: DAKIN'S SOL HALF STRENGTH (=0.25%) 1 APPLIC TOPICAL ×2 (11:26→21:48)
[2019-04-19 11:48] VITALS: RESP 18; O2SAT 96
--- NOTE | 2019-04-19 11:54 | NURSING ---
AMAYA Felder changed the dressing to the jojo anal area since patient had a BM.
[2019-04-19 14:33] VITALS: BP 110/65; PULSE 75; RESP 18; TEMP 36.4; O2SAT 94
--- NOTE | 2019-04-19 15:23 | CASEMGMT ---
Social Work Left several messages with daughter with no return phone call. Spoke with pt whom left a message with dtr and dtr's S.O. to call SW back. Pt mentioned dtr received DUI and lost her license. Contacted [facility] and [facility] - both did not have records the dtr was still incarcerated. [facility] requested precert to [employer] - [employer] approved retro auth 04/13-04/18 with [employer] 04/19. Clinicals faxed to [facility] for continued auth. Informed pt of above information. Another attempt made to dtr - voicemail is full. Will continue to follow WILLIAM Jerez
[2019-04-19 17:05] VITALS: PULSE 75
[2019-04-19] MEDS: Metoprolol Tartrate 100 MG Tablet PO (17:05)
[2019-04-19] MEDS: oxyCODONE 5 MG Tablet PO (21:44)
[2019-04-19] MEDS: LOXAPINE SUCCINATE 25 MG CAPSULE PO (21:44)
[2019-04-19] MEDS: clonazePAM 0.5 MG Tablet PO (21:46)
[2019-04-20 05:51] LABS: Bedside Glucose 105 mg/dL (70-110)
[2019-04-20] MEDS: oxyCODONE 5 MG Tablet PO ×2 (06:22→13:22)
[2019-04-20 06:23] VITALS: BP 115/55; PULSE 124
[2019-04-20] MEDS: Metoprolol Tartrate 100 MG Tablet PO ×2 (06:23→17:29)
[2019-04-20] MEDS: Senna/Docusate Sodium 1 Tablet PO (06:23)
[2019-04-20] MEDS: Ascorbic Acid 500 MG Tablet PO ×2 (06:23→17:29)
[2019-04-20] MEDS: Amiodarone 200 MG Tablet PO (06:23)
[2019-04-20] MEDS: Polyethylene Glycol 3350 17 GM PACKET PO (06:23)
[2019-04-20] MEDS: Acetaminophen 500 MG Tablet 1000 MG PO ×3 (06:23→21:38)
[2019-04-20] MEDS: APIXABAN 5 MG TABLET PO ×2 (06:23→17:29)
[2019-04-20] MEDS: Iron Polysaccharide Complex 150 MG CAPSULE PO (11:33)
[2019-04-20] MEDS: Folic Acid/Vitamin B Comp W-C 1 Capsule 1 CAP PO (11:33)
[2019-04-20] MEDS: Nystatin Powder 15gm Bottle 1 APPLIC TOPICAL ×2 (11:33→22:01)
[2019-04-20] MEDS: DAKIN'S SOL HALF STRENGTH (=0.25%) 1 APPLIC TOPICAL ×2 (11:34→21:57)
[2019-04-20 14:44] VITALS: BP 145/61; PULSE 103; RESP 18; TEMP 36.3; O2SAT 97
[2019-04-20 17:29] VITALS: BP 145/61; PULSE 103
[2019-04-20] MEDS: LOXAPINE SUCCINATE 25 MG CAPSULE PO (21:39)
[2019-04-20] MEDS: clonazePAM 0.5 MG Tablet PO (21:40)
--- NOTE | 2019-04-20 22:30 | NURSING ---
All treatment and care provided to patient in room d/t patient being in isolation.
[2019-04-21] MEDS: Acetaminophen 500 MG Tablet 1000 MG PO ×3 (05:19→19:58)
[2019-04-21] MEDS: APIXABAN 5 MG TABLET PO ×2 (05:19→17:55)
[2019-04-21] MEDS: Ascorbic Acid 500 MG Tablet PO ×2 (05:20→17:56)
[2019-04-21] MEDS: Senna/Docusate Sodium 1 Tablet PO ×2 (05:20→17:55)
[2019-04-21] MEDS: Amiodarone 200 MG Tablet PO (05:20)
[2019-04-21 05:24] VITALS: BP 114/43; PULSE 83
[2019-04-21] MEDS: Metoprolol Tartrate 100 MG Tablet PO ×2 (05:24→17:57)
[2019-04-21 05:30] VITALS: TEMP 36.9
[2019-04-21 06:21] LABS: Bedside Glucose 108 mg/dL (70-110)
[2019-04-21] MEDS: Iron Polysaccharide Complex 150 MG CAPSULE PO (09:02)
[2019-04-21] MEDS: Folic Acid/Vitamin B Comp W-C 1 Capsule 1 CAP PO (09:03)
[2019-04-21] MEDS: DAKIN'S SOL HALF STRENGTH (=0.25%) 1 APPLIC TOPICAL ×2 (09:36→19:59)
[2019-04-21] MEDS: Nystatin Powder 15gm Bottle 1 APPLIC TOPICAL ×2 (10:50→20:00)
--- NOTE | 2019-04-21 10:55 | NURSING ---
Resting in bed with eyes closed. Dressing change done earlier this AM. Unable to obtain urine specimen at this time. Fresh water given and encouraged to drink.
[2019-04-21] MEDS: oxyCODONE 5 MG Tablet PO ×2 (11:22→19:58)
[2019-04-21 12:36] LABS: Mucous, Urine 0 SEEN /hpf (<or=2+)
[2019-04-21 12:44] LABS: Color, Urine Yellow (Yellow); Glucose, Dipstick Normal (Normal); Ketone-Dipstick Negative (Negative); Leukocyte Esterase-Dipstick 500 /ul (Negative); Nitrite-Dipstick Positive (Negative); Occult Blood-Urine 10 /ul (Negative); Protein-Dipstick 30 mg/dl (Negative); Specific Gravity, Urine 1.015 (1.002-1.030); Urine Bilirubin Dipstick Negative (Negative); Urine Clarity Sl. Cloudy (Clear); Urine Urobilinogen Normal (Normal)
[2019-04-21 12:55] LABS: Red Blood Cells-Urine 0-5 SEEN /hpf (0-5); Squamous Epithelial Cells - UA 0-5 SEEN /hpf (5-10); White Blood Cells 10-25 SEEN /hpf (0-5)
[2019-04-21 12:56] LABS: Bacteria 2+ /hpf (None Seen)
[2019-04-21 14:39] VITALS: BP 119/68; PULSE 100; RESP 16; TEMP 36.8; O2SAT 96
[2019-04-21] MEDS: CEFUROXIME AXETIL 250 MG TABLET 500 MG PO (17:55)
[2019-04-21 17:57] VITALS: PULSE 100
[2019-04-21] MEDS: clonazePAM 0.5 MG Tablet PO (19:58)
[2019-04-21] MEDS: LOXAPINE SUCCINATE 25 MG CAPSULE PO (19:58)
--- NOTE | 2019-04-21 22:11 | NURSING ---
All treatment and care provided to patient in room d/t patient being in isolation.
[2019-04-22] MEDS: APIXABAN 5 MG TABLET PO ×2 (05:12→17:18)
[2019-04-22] MEDS: CEFUROXIME AXETIL 250 MG TABLET 500 MG PO ×2 (05:12→17:18)
[2019-04-22] MEDS: Acetaminophen 500 MG Tablet 1000 MG PO ×2 (05:12→14:06)
[2019-04-22] MEDS: Senna/Docusate Sodium 1 Tablet PO ×2 (05:13→17:18)
[2019-04-22] MEDS: Ascorbic Acid 500 MG Tablet PO ×2 (05:13→17:18)
[2019-04-22] MEDS: Amiodarone 200 MG Tablet PO (05:13)
[2019-04-22 05:14] VITALS: BP 102/45; PULSE 85
[2019-04-22] MEDS: oxyCODONE 5 MG Tablet PO ×2 (05:14→18:12)
[2019-04-22] MEDS: Metoprolol Tartrate 100 MG Tablet PO ×2 (05:14→17:18)
[2019-04-22] MEDS: DAKIN'S SOL HALF STRENGTH (=0.25%) 1 APPLIC TOPICAL ×2 (05:19→23:07)
[2019-04-22 06:16] LABS: Bedside Glucose 110 mg/dL (70-110)
[2019-04-22] MEDS: Folic Acid/Vitamin B Comp W-C 1 Capsule 1 CAP PO (09:09)
[2019-04-22] MEDS: Iron Polysaccharide Complex 150 MG CAPSULE PO (09:37)
[2019-04-22] MEDS: Nystatin Powder 15gm Bottle 1 APPLIC TOPICAL ×2 (10:38→23:06)
[2019-04-22 15:18] VITALS: BP 131/60; PULSE 81; RESP 20; TEMP 36.8; O2SAT 98
--- NOTE | 2019-04-22 16:35 | CASEMGMT ---
Social Work Spoke with patient's daughter that insurance approved pt with [employer] 04/26 and continued stay is not guaranteed. Explained pt may not be safe to return home as dtr is concerned about properly caring for her. Discussed SNFs, Medicaid termed and would need to reapply. Dtr understand and states will be in tomorrow to speak with pt. Will continue to follow. Heather Le, CHEMICAL LABORATORY CHIEF PHYSICALLY IMPAIRED TEACHER
[2019-04-22 17:18] VITALS: PULSE 81
--- NOTE | 2019-04-22 19:19 | PN_ITS ---
Subjective: Resident seen in room, lying in bed. She has no complaints. Yesterday, resident was more confused than usual, and UA checked and was positive, curr ently being treated for complicated urinary tract infection as she has indwelling gimenez catheter. Vitals/I&O's: Vital Signs Temp Pulse Resp BP Pulse Ox 98.3 F 81 20 H 131/60 H 98 04/22/19 15:18 04/22/19 17:18 04/22/19 15:18 04/22/19 15:18 04/22/19 15:18 Oxygen Delivery Method Room Air Weight: 108.04 kg Body Mass Index (BMI) 40.3 Intake and Output for Last 24 Hours 04/20/19 04/21/19 04/22/19 23:59 23:59 23:59 Intake Total 1460 / 1460 1200 / 1200 1760 / 1760 Output Total 1250 / 1250 800 / 800 1800 / 1800 Balance 210 / 210 400 / 400 -40 / -40 Microbiology Past 72 Hours 04/21/19 12:20 Urine Catheter - Catheter Urine Culture - Preliminary Presumptive E. coli Laboratory Results 04/22/19 06:06: POC Glucose 110 Past Medical History Past Medical History (Chronic Problems): Chronic Problems Schizophrenia (Chronic) Bipolar disorder (Chronic) Atrial fibrillation (Chronic) Hydradenitis (Chronic) Diabetes mellitus (Chronic) Hypertension (Chronic) Osteoarthritis (Chronic) Irritable bowel syndrome (Chronic) Morbid obesity (Chronic) Obstructive sleep apnea (Chronic) Post traumatic stress disorder (Chronic) Allergies diltiazem Allergy (Verified 01/24/14 11:21) Swelling aripiprazole [From Abilify] Adverse Reaction (Verified 03/25/19 15:09) Anaphylaxis doxepin Adverse Reaction (Verified 03/25/19 15:09) Other doxycycline Adverse Reaction (Verified 01/24/14 11:21) Other ibuprofen [From Motrin] Adverse Reaction (Verified 01/24/14 11:21) Nausea/Vom/Diarrhea naproxen [From Naprosyn] Adverse Reaction (Verified 01/24/14 11:21) Nausea/Vom/Diarrhea prednisone Adverse Reaction (Verified 01/28/14 14:23) Other made me real mean risperidone [From Risperdal] Adverse Reaction (Verified 03/25/19 15:09) Swelling Home Medications: Ambulatory Orders Medication Instructions Recorded Clonazepam 1 mg PO BID 02/21/19 Gabapentin [Neurontin] 400 mg PO TID 02/21/19 Loxapine Succinate [Loxapine] 25 mg PO QHS 02/21/19 Sulfamethoxazole/Trimethoprim 1 tab PO BID 02/21/19 [Sulfamethoxazole-Tmp Ds Tablet] Acetaminophen [Tylenol] 325 mg PO 4X/DAY 03/25/19 Amiodarone HCl 200 mg PO DAILY 03/25/19 Ascorbic Acid [Vitamin C] 500 mg PO BID 03/25/19 Enoxaparin Sodium [Lovenox] 40 mg SQ DAILY 03/25/19 Gabapentin [Neurontin] 200 mg PO TID 03/25/19 Ibuprofen 200 mg PO TID 03/25/19 Ipratropium/Albuterol Sulfate 3 ml INHALATION Q6H.RT 03/25/19 [Duoneb] Metoprolol Tartrate 25 mg PO BID 03/25/19 Oxycodone [Oxyir] 5 mg PO Q6H PRN PRN 03/25/19 Sodium Hypochlorite [Dakins 1 applic TOPICAL BID 03/25/19 Solution 0.25% (1/2 Strength)] Zinc Sulfate 220 mg PO BID 03/25/19 Surgical History: cholecystectomy, - - Left breast abscess, right groin, thigh, abdomen abscess. Axillary, groin abscess. 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 SCHEDULER history Lives: With Family Smoking Status: Heavy Smoker (>10/day) Tobacco Use: Cigarettes Alcohol: None Drugs: Marijuana - *Family History Maternal History Items: No pertinent history Paternal History Items: No pertinent history Capacity - Capacity Assessment Tool Can the patient make a choice & communicate that choice?: No Can the patient understand benefits, risks and alternatives?: No Can the patient make a logical, rational choice?: No Is the choice the patient makes consistent w/ their values?: No Is there an impending, emergent risk to the patient?: No Does the patient have an Advance Directive?: Yes Is there a Surrogate Available?: Yes i.e. HCPOA: Yes i.e. close relative (spouse, child, parent, sibling)?: Yes Review of Systems Constitutional: Denies: Chills, Fever, Weight Change HEENT: Denies: Head Aches, Sinus Congestion, Sinus Drainage Cardiovascular: Denies: Chest Pain, Palpitations Respiratory: Denies: Cough, Shortness of breath at rest, Sputum production Gastrointestinal: Denies: Abdominal Pain, Nausea, Vomiting Genitourinary: Denies: Dysuria Musculoskeletal: Denies: Joint Pain, Joint Tenderness Skin: Denies: Rash, Wounds Neurological: Denies: Numbness, Tingling, Focal weakness Psychiatric: Denies: Anxiety, Depression, Homicidal Ideations, Suicidal Ideations Hematologic/ Lymphatic: Denies: Easy Bruising, Easy Bleeding Patient Problems: Active and Suspected Problems Debility (Acute) Sepsis (Acute) Perirectal abscess (Acute) - Physical Exam Vitals/I&O's: Vital Signs Temp Pulse Resp BP Pulse Ox 98.3 F 81 20 H 131/60 H 98 04/22/19 15:18 04/22/19 17:18 04/22/19 15:18 04/22/19 15:18 04/22/19 15:18 Oxygen Delivery Method Room Air Weight: 108.04 kg Body Mass Index (BMI) 40.3 Intake and Output for Last 24 Hours 04/20/19 04/21/19 04/22/19 23:59 23:59 23:59 Intake Total 1460 / 1460 1200 / 1200 1760 / 1760 Output Total 1250 / 1250 800 / 800 1800 / 1800 Balance 210 / 210 400 / 400 -40 / -40 General: Alert, Oriented x3, Cooperative HEENT: Atraumatic, PERRLA, EOMI, Normocephalic Neck: Supple, No JVD, Negative Carotid Bruits Lungs: Clear to auscultation, Normal air movement Cardiovascular: Regular rate, No murmurs Abdomen: Bowel Sounds Present, Soft, Non Tender, - - Indwelling Gimenez catheter. Extremities: No edema, Capillary Refill Less than 3 Seconds Skin: Ulcer/ Wound - Perianal wound, see photo from Sarah Bauer. Musculoskeletal: No Tenderness to Palpation of Joints or Extremities Neurological: Cranial nerves II-XII grossly intact Psych/Mental Status: Normal Affect, Appropriate Microbiology Past 72 Hours 04/21/19 12:20 Urine Catheter - Catheter Urine Culture - Preliminary Presumptive E. coli Laboratory Results 04/22/19 06:06: POC Glucose 110 Current Medications Acetaminophen (Tylenol) 1,000 mg PO Q8 [facility] Last Admin: 04/22/19 14:06 Dose: 1,000 mg Documented by: Albuterol/Ipratropium (Duoneb) 3 ml INHALATION Q6H.RT PRN PRN Reason: SHORTNESS OF BREATH Amiodarone HCl (Cordarone) 200 mg PO DAILY [facility] Last Admin: 04/22/19 05:13 Dose: 200 mg Documented by: Apixaban (Eliquis) 5 mg PO BID [facility] Last Admin: 04/22/19 17:18 Dose: 5 mg Documented by: Ascorbic Acid (Vitamin C) 500 mg PO BID [facility] Last Admin: 04/22/19 17:18 Dose: 500 mg Documented by: Bisacodyl (Dulcolax) 10 mg PO DAILY PRN PRN Reason: Constipation Last Admin: 04/01/19 05:17 Dose: 10 mg Documented by: Cefuroxime Axetil (Ceftin) 500 mg PO Q12 [facility] Stop: 05/01/19 18:01 Last Admin: 04/22/19 17:18 Dose: 500 mg Documented by: Clonazepam (Klonopin) 0.5 mg PO QHS [facility] Last Admin: 04/21/19 19:58 Dose: 0.5 mg Documented by: Loxapine Succinate (Loxapine) 25 mg PO QHS [facility] Last Admin: 04/21/19 19:58 Dose: 25 mg Documented by: Metoprolol Tartrate (Lopressor (Beta Marcella)) 100 mg PO BID [facility] Last Admin: 04/22/19 17:18 Dose: 100 mg Documented by: Multi-Ingredient Cream (Eucerin) 1 applic TOPICAL QHS [facility]; Protocol Last Admin: 04/21/19 20:01 Dose: 1 applicatio Documented by: Multivit/Ca Carb/B Cmplx/FA/Prenat (Ne[facility]rocaps, [facility]) [facility] Admin: 04/22/19 09:09 Dose: 1 capsule Documented by: Nutritional Formula (Thor - [place] Flavor) [facility] Last Admin: 04/22/19 17:18 Dose: 1 packet Documented by: Nystatin (Mycostatin Powder) 1 applic TOPICAL 1000,2200 [facility]; Protocol Last Admin: 04/22/19 10:38 Dose: 1 applicatio Documented by: Oxycodone HCl (Oxyir) 5 mg PO Q6H PRN PRN PRN Reason: Pain Score 4-10/10 Last Admin: 04/22/19 18:12 Dose: 5 mg Documented by: Polyethylene Glycol (Miralax) 17 gm PO DAILY [facility] Last Admin: 04/22/19 05:21 Dose: Not Given Documented by: Polysaccharide Iron Complex (Ferrex 150) 150 mg PO DAILYCM [facility] Last Admin: 04/22/19 09:37 Dose: 150 mg Documented by: Senna/Docusate Sodium (Senokot-S, Laureen-Colace) 1 tablet PO BID [facility] Last Admin: 04/22/19 17:18 Dose: 1 tablet Documented by: Sodium Hypochlorite (Dakins Solution 0.25% (1/2 Strength)) 1 applic TOPICAL 1000,2200 [facility]; Protocol Last Admin: 04/22/19 05:19 Dose: 1 applicatio Documented by: Zinc Sulfate (Zinc Sulfate) 220 mg PO BID [facility] Last Admin: 04/22/19 17:18 Dose: 220 mg Documented by: Assessment/Plan All Active Problems Debility (Acute) Sepsis (Acute) Perirectal abscess (Acute) 59 year old female with below past medical history hospitalized for sepsis, perirectal abscess secondary to hydradenitis requiring incision & drainage, admitted to [facility], transferred to TCU with debility, here for rehabilitation, strengthening, prior to disposition determination. * Debility - PT/OT. * Pain - Tylenol 1000MG Q8H PRN pain (1-3), Oxycodone 5MG Q6H PRN pain (4-10). * Bowel - Miralax 17GM daily, Senna/colace 1 tablet BID, Dulcolax 10MG daily PRN. * Adult immunization - Administer Prevnar 13, Pneumovax 23, Fluzone as appropriate. * DVT prophylaxis - Not necessary, on Eliquis. * Atrial Fibrillation - Metoprolol 100MG twice daily, Amiodarone 200MG daily, Eliquis 5MG twice daily. * Vitamin C deficiency - Vitamin C 500MG twice daily. * Anxiety - Clonazepam 0.5MG QHS. * Chronic Kidney Disease - Nephrocap 1 cap daily. * Shortness of breath - Duoneb 3ML Q6H. * Schizophrenia - Loxapine 25MG QHS. * Tinea Corporis - Nystatin powder twice daily. * Complicated E. Coli UTI - indwelling gimenez catheter due to wound, Ceftin 500MG BID x 10 days, Sensitivity pending. * Perirectal wound - Dakins twice daily, consult wound nurse, Thor 1 packet twice daily. * Iron deficiency anemia - Ferrex 150MG daily. * Skin irritation - Eucerin QHS. * Tinea Corporis - Nystatin powder BID. * Zinc deficiency - Zinc Sulfate 220MG twice daily.
[2019-04-22] MEDS: clonazePAM 0.5 MG Tablet PO (23:00)
[2019-04-22] MEDS: LOXAPINE SUCCINATE 25 MG CAPSULE PO (23:01)
[2019-04-23] MEDS: oxyCODONE 5 MG Tablet PO ×2 (01:11→16:51)
--- NOTE | 2019-04-23 01:36 | NURSING ---
all care provided in room d/t pt remains in contact precautions
--- NOTE | 2019-04-23 01:55 | NURSING ---
Pt calling out to be repositioned numerous times. Pt able to move herself in the bed but refuses. Pt restless. Attends applied, x2 assist to wheelchair and brought out to nurses station.
[2019-04-23 05:44] LABS: Absolute Lymphocyte Count 3.15 X10^3/uL (0.83-4.51); Absolute Neutrophil Count 6.5 X10^3/uL (2.0-7.7); Basophil# 0.06 X10^3/uL; Basophil% 0.6 % (0-1); Eosinophil# 0.23 X10^3/uL; Eosinophils% 2.2 % (0-5); Hematocrit 32.8 % (37-47); Hemoglobin 10.1 g/dL (12.0-15.0); Lymphocyte # 3.15 X10^3/ul (4.0); Lymphocyte % 29.9 % (19-41); Mean Corp Hgb Conc 30.8 g/dL (32-36); Mean Corpuscular Hgb 28.9 pg (27.0-32.0); Mean Corpuscular Volume 93.7 fL (81-99); Mean Platelet Vol. 11.2 fl (6.2-12.0); Monocyte# 0.54 X10^3/uL; Monocyte% 5.1 % (0-10); NRBC Flagged by Analyzer 0 % (0-5); Neutrophil # 6.51 X10^3/uL (2.7-7.7); Neutrophil % 61.7 % (47-70); Platelet Count 226 K/mm3 (150-450); RBC Distribution Width CV 16.6 % (11.6-14.6); RBC Distribution Width SD 57.4 fl (35.1-43.9); White Blood Count 10.5 K/mm3 (4.4-11.0)
[2019-04-23 06:06] LABS: Bedside Glucose 98 mg/dL (70-110)
[2019-04-23 06:19] LABS: Anion Gap 5 (5-15); BUN 27 mg/dL (7-18); BUN/Creat Ratio 39.1 RATIO (10-20); Calcium,Total 8.5 mg/dL (8.5-10.1); Chloride 107 mmol/L (98-107); Creatinine, Serum 0.69 mg/dL (0.55-1.02); EST Glomerular Filtration Rate 92 mL/min (>60); Est Glom Filt Rate - Afr Amer 112 mL/min (>60); Estimated Creatinine Clearance 74.87 ml/min; Glucose 103 mg/dL (74-106); Sodium Level 138 mmol/L (136-145)
[2019-04-23] MEDS: Senna/Docusate Sodium 1 Tablet PO ×2 (06:32→16:51)
[2019-04-23] MEDS: Amiodarone 200 MG Tablet PO (06:32)
[2019-04-23] MEDS: Ascorbic Acid 500 MG Tablet PO ×2 (06:32→16:51)
[2019-04-23] MEDS: APIXABAN 5 MG TABLET PO ×2 (06:32→16:52)
[2019-04-23] MEDS: Polyethylene Glycol 3350 17 GM PACKET PO (06:32)
[2019-04-23] MEDS: CEFUROXIME AXETIL 250 MG TABLET 500 MG PO ×2 (06:32→16:51)
[2019-04-23 06:34] VITALS: BP 118/67; PULSE 114
[2019-04-23] MEDS: Metoprolol Tartrate 100 MG Tablet PO ×2 (06:34→16:52)
[2019-04-23] MEDS: Iron Polysaccharide Complex 150 MG CAPSULE PO (07:34)
[2019-04-23] MEDS: Folic Acid/Vitamin B Comp W-C 1 Capsule 1 CAP PO (07:34)
--- NOTE | 2019-04-23 07:41 | NURSING ---
ALL CARE IN ROOM DUE TO PT IN PRECAUTIONS
[2019-04-23 10:00] VITALS: PULSE 92; RESP 18; O2SAT 96
[2019-04-23] MEDS: DAKIN'S SOL HALF STRENGTH (=0.25%) 1 APPLIC TOPICAL ×2 (10:53→22:35)
[2019-04-23] MEDS: Nystatin Powder 15gm Bottle 1 APPLIC TOPICAL ×2 (10:54→22:36)
[2019-04-23 14:49] VITALS: BP 127/60; PULSE 79; RESP 22; TEMP 36.3; O2SAT 94
[2019-04-23 16:52] VITALS: PULSE 79
[2019-04-23] MEDS: clonazePAM 0.5 MG Tablet PO (22:35)
[2019-04-23] MEDS: Acetaminophen 500 MG Tablet 1000 MG PO (22:39)
[2019-04-23] MEDS: LOXAPINE SUCCINATE 25 MG CAPSULE PO (22:44)
[2019-04-24] MEDS: Senna/Docusate Sodium 1 Tablet PO ×2 (05:00→17:17)
[2019-04-24] MEDS: CEFUROXIME AXETIL 250 MG TABLET 500 MG PO ×2 (05:00→17:16)
[2019-04-24] MEDS: APIXABAN 5 MG TABLET PO ×2 (05:00→17:17)
[2019-04-24] MEDS: Ascorbic Acid 500 MG Tablet PO ×2 (05:00→17:17)
[2019-04-24] MEDS: Polyethylene Glycol 3350 17 GM PACKET PO (05:01)
[2019-04-24] MEDS: Amiodarone 200 MG Tablet PO (05:04)
[2019-04-24 06:16] LABS: Bedside Glucose 94 mg/dL (70-110)
[2019-04-24 06:56] VITALS: BP 139/58; PULSE 115
[2019-04-24] MEDS: Metoprolol Tartrate 100 MG Tablet PO ×2 (06:56→17:17)
--- NOTE | 2019-04-24 07:02 | NURSING ---
All care provided in room d/t pt remains in precautions.
[2019-04-24] MEDS: Iron Polysaccharide Complex 150 MG CAPSULE PO (09:51)
[2019-04-24] MEDS: Folic Acid/Vitamin B Comp W-C 1 Capsule 1 CAP PO (09:52)
[2019-04-24 10:00] VITALS: PULSE 83; RESP 14; O2SAT 97
[2019-04-24] MEDS: DAKIN'S SOL HALF STRENGTH (=0.25%) 1 APPLIC TOPICAL ×2 (10:05→21:55)
[2019-04-24] MEDS: Nystatin Powder 15gm Bottle 1 APPLIC TOPICAL ×2 (10:06→22:21)
[2019-04-24 14:45] VITALS: BP 123/71; PULSE 83; RESP 18; TEMP 36.6; O2SAT 98
[2019-04-24] MEDS: oxyCODONE 5 MG Tablet PO ×2 (15:04→21:53)
[2019-04-24 17:17] VITALS: BP 123/71; PULSE 83
--- NOTE | 2019-04-24 17:22 | CASEMGMT ---
Social Work Met with daughter and discussed insurance and DC plans. Dtr would like referrals to [facility] and [facility] for continued nursing care if insurance issues LCD prior to pt being able to DC home. Provided dtr with Medicaid application. Pt would admit under Medicaid Pending, if approved. Referrals made. Will continue to follow. Heather Le MSW MERCHANDISE COLLECTOR
[2019-04-24] MEDS: clonazePAM 0.5 MG Tablet PO (21:53)
[2019-04-24] MEDS: LOXAPINE SUCCINATE 25 MG CAPSULE PO (21:54)
[2019-04-25 06:15] LABS: Bedside Glucose 95 mg/dL (70-110)
[2019-04-25] MEDS: CEFUROXIME AXETIL 250 MG TABLET 500 MG PO ×2 (06:41→17:28)
[2019-04-25] MEDS: Polyethylene Glycol 3350 17 GM PACKET PO (06:41)
[2019-04-25] MEDS: Senna/Docusate Sodium 1 Tablet PO ×2 (06:41→17:28)
[2019-04-25] MEDS: Ascorbic Acid 500 MG Tablet PO ×2 (06:41→17:28)
[2019-04-25 06:42] VITALS: BP 118/64; PULSE 98
[2019-04-25] MEDS: Metoprolol Tartrate 100 MG Tablet PO ×2 (06:42→17:28)
[2019-04-25] MEDS: Amiodarone 200 MG Tablet PO (06:42)
[2019-04-25] MEDS: APIXABAN 5 MG TABLET PO ×2 (06:42→17:28)
[2019-04-25] MEDS: Folic Acid/Vitamin B Comp W-C 1 Capsule 1 CAP PO (09:36)
[2019-04-25] MEDS: Iron Polysaccharide Complex 150 MG CAPSULE PO (09:36)
--- NOTE | 2019-04-25 10:35 | NURSING ---
ALL CARE DONE IN ROOM DUE TO PT IN PRECAUTIONS .
[2019-04-25] MEDS: Nystatin Powder 15gm Bottle 1 APPLIC TOPICAL ×2 (11:29→22:43)
[2019-04-25] MEDS: DAKIN'S SOL HALF STRENGTH (=0.25%) 1 APPLIC TOPICAL ×2 (11:29→20:08)
[2019-04-25] MEDS: oxyCODONE 5 MG Tablet PO ×2 (11:45→20:05)
[2019-04-25 14:00] VITALS: BP 118/72; PULSE 85; RESP 18; TEMP 36.6; O2SAT 98
[2019-04-25 17:28] VITALS: PULSE 85
[2019-04-25] MEDS: clonazePAM 0.5 MG Tablet PO (22:38)
[2019-04-25] MEDS: LOXAPINE SUCCINATE 25 MG CAPSULE PO (22:39)
[2019-04-26 06:11] LABS: Bedside Glucose 103 mg/dL (70-110)
[2019-04-26] MEDS: Senna/Docusate Sodium 1 Tablet PO (06:16)
[2019-04-26] MEDS: Amiodarone 200 MG Tablet PO (06:16)
[2019-04-26] MEDS: CEFUROXIME AXETIL 250 MG TABLET 500 MG PO ×2 (06:16→17:31)
[2019-04-26] MEDS: APIXABAN 5 MG TABLET PO ×2 (06:16→17:31)
[2019-04-26] MEDS: Ascorbic Acid 500 MG Tablet PO ×2 (06:16→17:31)
[2019-04-26] MEDS: Polyethylene Glycol 3350 17 GM PACKET PO (06:16)
[2019-04-26 06:17] VITALS: BP 130/47; PULSE 76
[2019-04-26] MEDS: Metoprolol Tartrate 100 MG Tablet PO ×2 (06:17→17:31)
[2019-04-26 06:20] LABS: Bedside Glucose 97 mg/dL (70-110)
--- NOTE | 2019-04-26 06:44 | NURSING ---
all care provided in room d/t pt remains in contact precaution
[2019-04-26] MEDS: Iron Polysaccharide Complex 150 MG CAPSULE PO (08:12)
[2019-04-26] MEDS: Folic Acid/Vitamin B Comp W-C 1 Capsule 1 CAP PO (08:12)
[2019-04-26] MEDS: Nystatin Powder 15gm Bottle 1 APPLIC TOPICAL ×2 (10:53→21:24)
[2019-04-26] MEDS: DAKIN'S SOL HALF STRENGTH (=0.25%) 1 APPLIC TOPICAL ×2 (10:53→17:48)
[2019-04-26] MEDS: Acetaminophen 500 MG Tablet 1000 MG PO ×2 (11:07→19:08)
[2019-04-26 14:06] VITALS: BP 120/70; PULSE 84; RESP 18; TEMP 36.6; O2SAT 98
[2019-04-26] MEDS: oxyCODONE 5 MG Tablet PO ×2 (15:24→21:24)
--- NOTE | 2019-04-26 16:17 | NURSING ---
All patient care done in room due to resident being in contact precautions.
[2019-04-26 17:31] VITALS: BP 120/70; PULSE 84
[2019-04-26] MEDS: LOXAPINE SUCCINATE 25 MG CAPSULE PO (21:20)
[2019-04-26] MEDS: clonazePAM 0.5 MG Tablet PO (21:21)
--- NOTE | 2019-04-27 00:19 | NURSING ---
All treatment and care provided to patient in room d/t patient being in isolation.
[2019-04-27] MEDS: Ascorbic Acid 500 MG Tablet PO ×2 (05:26→17:02)
[2019-04-27] MEDS: CEFUROXIME AXETIL 250 MG TABLET 500 MG PO ×2 (05:26→17:02)
[2019-04-27] MEDS: Amiodarone 200 MG Tablet PO (05:27)
[2019-04-27] MEDS: APIXABAN 5 MG TABLET PO ×2 (05:27→17:02)
[2019-04-27] MEDS: Polyethylene Glycol 3350 17 GM PACKET PO (05:28)
[2019-04-27] MEDS: Senna/Docusate Sodium 1 Tablet PO ×2 (05:28→17:02)
[2019-04-27] MEDS: oxyCODONE 5 MG Tablet PO ×3 (05:32→20:54)
[2019-04-27 05:33] VITALS: BP 116/41; PULSE 79
[2019-04-27] MEDS: Metoprolol Tartrate 100 MG Tablet PO ×2 (05:33→17:03)
[2019-04-27 06:16] LABS: Bedside Glucose 102 mg/dL (70-110)
[2019-04-27] MEDS: Folic Acid/Vitamin B Comp W-C 1 Capsule 1 CAP PO (08:42)
[2019-04-27] MEDS: Acetaminophen 500 MG Tablet 1000 MG PO ×2 (08:42→17:03)
[2019-04-27] MEDS: Iron Polysaccharide Complex 150 MG CAPSULE PO (08:42)
[2019-04-27] MEDS: DAKIN'S SOL HALF STRENGTH (=0.25%) 1 APPLIC TOPICAL ×2 (10:43→20:51)
[2019-04-27] MEDS: Nystatin Powder 15gm Bottle 1 APPLIC TOPICAL ×2 (10:44→20:50)
[2019-04-27 14:04] VITALS: BP 116/44; PULSE 75; RESP 18; TEMP 37.2; O2SAT 96
[2019-04-27 17:03] VITALS: BP 116/44; PULSE 75
[2019-04-27] MEDS: clonazePAM 0.5 MG Tablet PO (20:49)
[2019-04-27] MEDS: LOXAPINE SUCCINATE 25 MG CAPSULE PO (20:49)
[2019-04-28] MEDS: Ascorbic Acid 500 MG Tablet PO ×2 (05:12→17:17)
[2019-04-28] MEDS: Polyethylene Glycol 3350 17 GM PACKET PO (05:12)
[2019-04-28] MEDS: Senna/Docusate Sodium 1 Tablet PO ×2 (05:13→17:19)
[2019-04-28] MEDS: Amiodarone 200 MG Tablet PO (05:13)
[2019-04-28] MEDS: APIXABAN 5 MG TABLET PO ×2 (05:13→17:17)
[2019-04-28] MEDS: CEFUROXIME AXETIL 250 MG TABLET 500 MG PO ×2 (05:13→17:17)
[2019-04-28] MEDS: oxyCODONE 5 MG Tablet PO ×2 (05:25→18:53)
[2019-04-28 05:26] VITALS: BP 149/59; PULSE 81
[2019-04-28] MEDS: Metoprolol Tartrate 100 MG Tablet PO ×2 (05:26→17:17)
[2019-04-28 06:16] LABS: Bedside Glucose 102 mg/dL (70-110)
[2019-04-28] MEDS: Iron Polysaccharide Complex 150 MG CAPSULE PO (09:07)
[2019-04-28] MEDS: Acetaminophen 500 MG Tablet 1000 MG PO (09:07)
[2019-04-28] MEDS: Folic Acid/Vitamin B Comp W-C 1 Capsule 1 CAP PO (09:07)
[2019-04-28] MEDS: DAKIN'S SOL HALF STRENGTH (=0.25%) 1 APPLIC TOPICAL ×2 (11:21→20:37)
[2019-04-28] MEDS: Nystatin Powder 15gm Bottle 1 APPLIC TOPICAL ×2 (11:21→20:38)
[2019-04-28 14:06] VITALS: BP 105/40; PULSE 74; RESP 17; TEMP 36.6; O2SAT 97
[2019-04-28 17:17] VITALS: PULSE 61
[2019-04-28] MEDS: LOXAPINE SUCCINATE 25 MG CAPSULE PO (20:38)
[2019-04-28] MEDS: clonazePAM 0.5 MG Tablet PO (20:40)
[2019-04-29] MEDS: oxyCODONE 5 MG Tablet PO ×3 (00:54→16:45)
[2019-04-29 04:56] VITALS: BP 105/45; PULSE 79
[2019-04-29] MEDS: Metoprolol Tartrate 100 MG Tablet PO ×2 (04:56→16:41)
[2019-04-29] MEDS: CEFUROXIME AXETIL 250 MG TABLET 500 MG PO ×2 (04:56→16:41)
[2019-04-29] MEDS: Ascorbic Acid 500 MG Tablet PO ×2 (04:57→16:41)
[2019-04-29] MEDS: APIXABAN 5 MG TABLET PO ×2 (04:57→16:41)
[2019-04-29] MEDS: Senna/Docusate Sodium 1 Tablet PO ×2 (04:57→16:41)
[2019-04-29] MEDS: Amiodarone 200 MG Tablet PO (04:57)
[2019-04-29] MEDS: Polyethylene Glycol 3350 17 GM PACKET PO (04:58)
[2019-04-29 06:11] LABS: Bedside Glucose 103 mg/dL (70-110)
[2019-04-29] MEDS: Iron Polysaccharide Complex 150 MG CAPSULE PO (08:33)
[2019-04-29] MEDS: Folic Acid/Vitamin B Comp W-C 1 Capsule 1 CAP PO (08:34)
--- NOTE | 2019-04-29 08:40 | NURSING ---
ALL CARE DONE IN ROOM DUE TO ISOLATION PRECAUTIONS.
[2019-04-29] MEDS: DAKIN'S SOL HALF STRENGTH (=0.25%) 1 APPLIC TOPICAL ×2 (11:09→21:31)
[2019-04-29] MEDS: Nystatin Powder 15gm Bottle 1 APPLIC TOPICAL ×2 (11:10→21:28)
--- NOTE | 2019-04-29 12:48 | NURSING ---
wound photo: left groin
--- NOTE | 2019-04-29 12:48 | NURSING ---
wound photo: jojo anal
--- NOTE | 2019-04-29 13:15 | CASEMGMT ---
Social Work Left message with daughter to inform her insurance approved pt with NRD 05/01, therapy issuing LCD 05/03, inquired about assistance completing Medicaid application for a payer for a SNF. Left message with [facility] for referral outcome. Will continue to follow. Heather Le, COVER STITCH MACHINE OPERATOR QUALITY ENGINEERING MANAGER
[2019-04-29 13:41] VITALS: BP 116/50; PULSE 83; RESP 18; TEMP 36.4; O2SAT 97
--- NOTE | 2019-04-29 14:38 | NURSING ---
Addendum entered by Emerita Wray 04/29/19 15:04: pt continued to call out several times, attends/pants placed on pt and brought out to common area. Original Note: Pt has been calling out every 5 minutes in the last 30 minutes to be moved. Staff has went in and adjusted pt several times to pt liking but as soon as they leave room, pt puts call light on again to move pt. Pt is capable of adjusting self in bed, she sits up independently on side of bed for meals. will continue to encourage pt to adjust herself.
[2019-04-29 16:41] VITALS: PULSE 83
[2019-04-29] MEDS: Acetaminophen 500 MG Tablet 1000 MG PO (18:05)
[2019-04-29] MEDS: LOXAPINE SUCCINATE 25 MG CAPSULE PO ×2 (21:24→21:26)
[2019-04-29] MEDS: clonazePAM 0.5 MG Tablet PO (21:24)
[2019-04-30] MEDS: oxyCODONE 5 MG Tablet PO ×4 (01:34→23:34)
[2019-04-30] MEDS: CEFUROXIME AXETIL 250 MG TABLET 500 MG PO ×2 (06:07→17:12)
[2019-04-30 06:08] VITALS: BP 136/56; PULSE 75
[2019-04-30] MEDS: Amiodarone 200 MG Tablet PO (06:08)
[2019-04-30] MEDS: Ascorbic Acid 500 MG Tablet PO ×2 (06:08→17:13)
[2019-04-30] MEDS: Acetaminophen 500 MG Tablet 1000 MG PO ×2 (06:08→22:42)
[2019-04-30] MEDS: Metoprolol Tartrate 100 MG Tablet PO ×2 (06:08→17:12)
[2019-04-30] MEDS: Polyethylene Glycol 3350 17 GM PACKET PO (06:08)
[2019-04-30] MEDS: Senna/Docusate Sodium 1 Tablet PO ×2 (06:08→17:13)
[2019-04-30] MEDS: APIXABAN 5 MG TABLET PO ×2 (06:09→17:12)
[2019-04-30 06:11] LABS: Bedside Glucose 91 mg/dL (70-110)
--- NOTE | 2019-04-30 08:41 | NURSING ---
ALL CARE GIVEN IN ROOM DUE TO PT IN PRECAUTIONS.
[2019-04-30] MEDS: Iron Polysaccharide Complex 150 MG CAPSULE PO (08:43)
[2019-04-30] MEDS: Folic Acid/Vitamin B Comp W-C 1 Capsule 1 CAP PO (08:43)
[2019-04-30] MEDS: DAKIN'S SOL HALF STRENGTH (=0.25%) 1 APPLIC TOPICAL ×2 (10:07→22:46)
[2019-04-30] MEDS: Nystatin Powder 15gm Bottle 1 APPLIC TOPICAL ×2 (10:07→22:45)
[2019-04-30 10:23] VITALS: PULSE 92; RESP 18
[2019-04-30 14:22] VITALS: BP 97/40; PULSE 58; RESP 16; TEMP 36.4; O2SAT 98
--- NOTE | 2019-04-30 16:34 | CASEMGMT ---
Social Work Left another message with carly and [facility] on this date. Will await return phone call. WILLIAM JerezW
[2019-04-30 17:12] VITALS: PULSE 58
[2019-04-30] MEDS: clonazePAM 0.5 MG Tablet PO (22:44)
[2019-05-01 06:30] LABS: Bedside Glucose 84 mg/dL (70-110)
[2019-05-01] MEDS: Amiodarone 200 MG Tablet PO (06:46)
[2019-05-01] MEDS: CEFUROXIME AXETIL 250 MG TABLET 500 MG PO ×2 (06:47→17:10)
[2019-05-01] MEDS: Polyethylene Glycol 3350 17 GM PACKET PO (06:47)
[2019-05-01] MEDS: APIXABAN 5 MG TABLET PO ×2 (06:47→17:10)
[2019-05-01] MEDS: Senna/Docusate Sodium 1 Tablet PO ×2 (06:48→17:10)
[2019-05-01] MEDS: Ascorbic Acid 500 MG Tablet PO ×2 (06:48→17:10)
[2019-05-01 06:52] VITALS: BP 125/35; PULSE 60
[2019-05-01] MEDS: Metoprolol Tartrate 100 MG Tablet PO ×2 (06:52→17:10)
[2019-05-01] MEDS: Folic Acid/Vitamin B Comp W-C 1 Capsule 1 CAP PO (08:02)
[2019-05-01] MEDS: Iron Polysaccharide Complex 150 MG CAPSULE PO (08:03)
[2019-05-01] MEDS: DAKIN'S SOL HALF STRENGTH (=0.25%) 1 APPLIC TOPICAL ×2 (08:04→20:27)
--- NOTE | 2019-05-01 11:00 | PCA ---
patient rang out to be moved in the bed, i walked in and encouraged patient to adjust herself in bed due to being capable of doing it. pt moved self in bed, i exited the room no sooner that i exited room patient rang out slot machine key person light i answered pt said i pooped myself went into patients room changed patient an called in the RN to change dressing on patient.
--- NOTE | 2019-05-01 11:12 | CASEMGMT ---
Social Work Spoke with [facility] whom stated they would prefer if pt was approved on Medicaid prior to admit, but if pt receives a JALEEL pending #, to contact them for possible admission. Left another message with dtr to discuss DC plans. Insurance update on this date. Will continue to follow. WILLIAM JerezW
[2019-05-01] MEDS: oxyCODONE 5 MG Tablet PO ×2 (11:28→17:40)
[2019-05-01] MEDS: Nystatin Powder 15gm Bottle 1 APPLIC TOPICAL ×2 (11:28→20:26)
[2019-05-01] MEDS: Acetaminophen 500 MG Tablet 1000 MG PO (14:24)
[2019-05-01 14:26] VITALS: BP 131/64; PULSE 71; RESP 18; TEMP 36.9; O2SAT 95
[2019-05-01 17:10] VITALS: BP 131/64; PULSE 71
[2019-05-01] MEDS: clonazePAM 0.5 MG Tablet PO (20:15)
[2019-05-01] MEDS: LOXAPINE SUCCINATE 25 MG CAPSULE PO (20:15)
[2019-05-02] MEDS: oxyCODONE 5 MG Tablet PO ×3 (05:41→19:42)
[2019-05-02] MEDS: Ascorbic Acid 500 MG Tablet PO ×2 (05:42→17:29)
[2019-05-02] MEDS: Amiodarone 200 MG Tablet PO (05:42)
[2019-05-02] MEDS: Senna/Docusate Sodium 1 Tablet PO ×2 (05:42→17:29)
[2019-05-02] MEDS: APIXABAN 5 MG TABLET PO ×2 (05:42→17:30)
[2019-05-02] MEDS: Polyethylene Glycol 3350 17 GM PACKET PO (05:42)
[2019-05-02 05:43] VITALS: BP 119/59; PULSE 93
[2019-05-02] MEDS: Metoprolol Tartrate 100 MG Tablet PO ×2 (05:43→17:29)
[2019-05-02 06:26] LABS: Bedside Glucose 95 mg/dL (70-110)
[2019-05-02] MEDS: Iron Polysaccharide Complex 150 MG CAPSULE PO (08:48)
[2019-05-02] MEDS: Folic Acid/Vitamin B Comp W-C 1 Capsule 1 CAP PO (08:49)
[2019-05-02] MEDS: DAKIN'S SOL HALF STRENGTH (=0.25%) 1 APPLIC TOPICAL ×2 (09:09→19:49)
[2019-05-02] MEDS: Nystatin Powder 15gm Bottle 1 APPLIC TOPICAL ×2 (09:10→19:50)
--- NOTE | 2019-05-02 11:39 | NURSING ---
R' REMAINS IN CONTACT PRECAUTIONS THIS SHIFT. ALL CARE PROVIDED IN ROOM.
[2019-05-02 14:11] VITALS: BP 102/42; PULSE 78; RESP 18; TEMP 36.7; O2SAT 98
[2019-05-02 17:29] VITALS: PULSE 78
[2019-05-02] MEDS: LOXAPINE SUCCINATE 25 MG CAPSULE PO (19:42)
[2019-05-02] MEDS: clonazePAM 0.5 MG Tablet PO (19:42)
--- NOTE | 2019-05-03 02:54 | NURSING ---
All treatment and care provided to patient in room d/t patient being in isolation.
[2019-05-03] MEDS: Ascorbic Acid 500 MG Tablet PO ×2 (04:18→17:06)
[2019-05-03] MEDS: APIXABAN 5 MG TABLET PO ×2 (04:18→17:06)
[2019-05-03] MEDS: Senna/Docusate Sodium 1 Tablet PO ×2 (04:18→17:06)
[2019-05-03] MEDS: oxyCODONE 5 MG Tablet PO ×3 (04:18→17:05)
[2019-05-03] MEDS: Polyethylene Glycol 3350 17 GM PACKET PO (04:19)
[2019-05-03] MEDS: Amiodarone 200 MG Tablet PO (04:19)
[2019-05-03 04:20] VITALS: BP 161/76; PULSE 108
[2019-05-03] MEDS: Metoprolol Tartrate 100 MG Tablet PO ×2 (04:20→17:06)
[2019-05-03 06:16] LABS: Bedside Glucose 117 mg/dL (70-110)
[2019-05-03] MEDS: Iron Polysaccharide Complex 150 MG CAPSULE PO (08:32)
[2019-05-03] MEDS: Folic Acid/Vitamin B Comp W-C 1 Capsule 1 CAP PO (08:33)
--- NOTE | 2019-05-03 10:50 | CASEMGMT ---
Social Work Insurance issued LCD 05/06, DC 05/07. Attempted to contact dtr, but voicemail is full. An email was sent to the dtr to notify her to call SW for DC info. Will continue to attempt. Heather Le, AUTISM SPECIALIST HIDE BUFFER
[2019-05-03] MEDS: DAKIN'S SOL HALF STRENGTH (=0.25%) 1 APPLIC TOPICAL ×2 (11:46→22:18)
[2019-05-03] MEDS: Nystatin Powder 15gm Bottle 1 APPLIC TOPICAL ×2 (11:47→22:18)
--- NOTE | 2019-05-03 11:47 | CASEMGMT ---
Addendum entered by Heather Le 05/03/19 11:53: Ordered SW with [facility]. Original Note: Social Work Spoke with pt about DC plans. Pt signed [employer] and understood appeal rights. Pt requested [facility] as she used them prior. Referral made for PT/OT/SN. Referral made to [facility] for w/c. Patient is unsafe with a cane or walker, unable to stand for long periods of time and requires a wheelchair for mobility. Plan: DC home with daughter for 03/10 on 05/07 with [facility] PT/OT/SN, [facility] w/c. Heather Le, FISHING FLOATS ASSEMBLER BELT MACHINE OPERATOR
--- NOTE | 2019-05-03 14:55 | PCM.DC ---
- Discharge Diagnoses Current Active Problems: Current Active and Chronic Problems Debility (Acute) Sepsis (Acute) Perirectal abscess (Acute) Schizophrenia (Chronic) Bipolar disorder (Chronic) Atrial fibrillation (Chronic) Hydradenitis (Chronic) Diabetes mellitus (Chronic) Hypertension (Chronic) Osteoarthritis (Chronic) Irritable bowel syndrome (Chronic) Morbid obesity (Chronic) Obstructive sleep apnea (Chronic) Post traumatic stress disorder (Chronic) You will use the following diet at home:: No restrictions, Regular Your food should be the consistency of: Regular Your liquids should be the consistency of: Regular/Thin Discharge Activity: Return to Normal Activity, May Shower, Use Walker Weight Bearing Status: Weight bearing as tolerated Call your doctor if you observe: Fever of 101 or Higher, Inability to urinate, Inability to have a bowel movement, Shortness of breath, Chest pain, Uncontrolled pain Allergies/Adverse Reactions: Allergies diltiazem Allergy (Verified 01/24/14 11:21) Swelling aripiprazole [From Abilify] Adverse Reaction (Verified 03/25/19 15:09) Anaphylaxis doxepin Adverse Reaction (Verified 03/25/19 15:09) Other doxycycline Adverse Reaction (Verified 01/24/14 11:21) Other ibuprofen [From Motrin] Adverse Reaction (Verified 01/24/14 11:21) Nausea/Vom/Diarrhea naproxen [From Naprosyn] Adverse Reaction (Verified 01/24/14 11:21) Nausea/Vom/Diarrhea prednisone Adverse Reaction (Verified 01/28/14 14:23) Other made me real mean risperidone [From Risperdal] Adverse Reaction (Verified 03/25/19 15:09) Swelling Medications to take at Discharge Clonazepam 1 mg PO BID 02/21/19 Loxapine Succinate [Loxapine] 25 mg PO QHS 02/21/19 Amiodarone HCl 200 mg PO DAILY 03/25/19 Ascorbic Acid [Vitamin C] 500 mg PO BID 03/25/19 Oxycodone [Oxyir] 5 mg PO Q6H PRN PRN 03/25/19 Acetaminophen [Tylenol] 1,000 mg PO Q8H PRN PRN tablet 05/03/19 Apixaban [Eliquis] 5 mg PO BID #60 tab 05/03/19 Folic Acid/Vitamin B Comp W-C [Nephrocaps, Renaphro] 1 capsule PO DAILYCM capsule 05/03/19 Iron Polysaccharide Complex [Ferrex 150] 150 mg PO DAILYCM #30 cap 05/03/19 Metoprolol Tartrate [Lopressor (beta ap)] 100 mg PO BID #60 tab 05/03/19 Mineral Oil/Petrolatum,White [Eucerin] 1 applic TOPICAL QHS jar 05/03/19 Nutritional Supplement [Thor - ORANGE FLAVOR] 1 packet PO BIDCM #60 packet 05/03/19 Nystatin Powder [Mycostatin Powder] 1 applic TOPICAL 1000,2200 bottle 05/03/19 Oxycodone [Oxyir] 5 mg PO Q6H PRN PRN 7 Days #28 tablet 05/03/19 Polyethylene Glycol 3350 [Miralax] 17 gm PO DAILY #30 packet 05/03/19 Senna/Docusate Sodium [Senokot-S] 1 tab PO BID #60 tab 05/03/19 Sodium Hypochlorite [Dakins Solution 0.25% (1/2 Strength)] 1 applic TOPICAL BID #1 bottle 05/03/19 Zinc Sulfate 220 mg PO BID #60 cap 05/03/19 The following prescriptions were given: Sodium Hypochlorite [Dakins Solution 0.25% (1/2 Strength)] 1 applic TOPICAL BID #1 bottle Transmission Status: Pending to [facility] - [place], Apixaban [Eliquis] 5 mg PO BID #60 tab Transmission Status: Pending to [facility] [place], Iron Polysaccharide Complex [Ferrex 150] 150 mg PO DAILYCM #30 cap Transmission Status: Pending to [facility] [place], Nutritional Supplement [Thor - ORANGE FLAVOR] 1 packet PO BIDCM #60 packet Transmission Status: Pending to [facility] [place], Metoprolol Tartrate [Lopressor (beta ap)] 100 mg PO BID #60 tab Transmission Status: Pending to [facility] [place], Polyethylene Glycol 3350 [Miralax] 17 gm PO DAILY #30 packet Transmission Status: Pending to [facility] [place], Oxycodone [Oxyir] 5 mg PO Q6H PRN PRN 7 Days #28 tablet PRN Reason: Pain Score 4-10/10 Transmission Status: Sent to [facility] [place], Senna/Docusate Sodium [Senokot-S] 1 tab PO BID #60 tab Transmission Status: Pending to [facility] [place], Zinc Sulfate 220 mg PO BID #60 cap Transmission Status: Pending to [facility] [place], Primary Care Physician: Lai Londono MD [Primary Care Provider] - Please follow up with your Primary Care Physician in: 1 week. Test Results: Test results from this visit will be discussed in further detail at your follow-up appointment, if applicable. Please Follow Up With: Lai Londono MD (PCP) When: 1 week. Proposed Discharge Date: 05/07/19
--- NOTE | 2019-05-03 14:57 | DS.PCM_ITS ---
Discharge Date and Diagnosis - Problem List Patient Problems: Active and Suspected Problems Debility (Acute) Sepsis (Acute) Perirectal abscess (Acute) Date of Admission: 03/25/19 Date of Discharge: 05/07/19 - Primary Discharge Diagnosis Active and Suspected Problems Debility (Acute) Sepsis (Acute) Perirectal abscess (Acute) - Secondary Discharge Diagnosis Chronic Problems Schizophrenia (Chronic) Bipolar disorder (Chronic) Atrial fibrillation (Chronic) Hydradenitis (Chronic) Diabetes mellitus (Chronic) Hypertension (Chronic) Osteoarthritis (Chronic) Irritable bowel syndrome (Chronic) Morbid obesity (Chronic) Obstructive sleep apnea (Chronic) Post traumatic stress disorder (Chronic) Hospital Course and Treatment Imaging Results: 03/25/19 15:40 Diet: Regular Diet Food consistency:: Mechanical Soft/Ground Liquid Consistency:: Regular/Thin Diet Comments: pt has no teeth Labs (Last 48 Hours) 05/02/19 05/03/19 06:20 06:11 POC Glucose 95 117 H Consultations 03/25/19 15:31 Consult: Onc/Wound/phlebotomist lab assistant Routine Comment: Reason for Consult:: Laureen anal wound Operations: None Procedures: None Summary of Care Provided: The patient is a 59 year old Female with below past medical history hospitalized for sepsis, perirectal abscess secondary to hydradenitis requiring incision & drainage, admitted to [facility], transferred to TCU with kitty tovar, here for rehabilitation, strengthening, prior to disposition determination. Discharge home with daughter for 03/10 care, [facility] for PT/OT/SN, [employer] wheelchair. Resident requires Home Health care due to perirectal abscess. Patient Problems: Active and Suspected Problems Debility (Acute) Sepsis (Acute) Perirectal abscess (Acute) - Physical Exam Vitals/I&O's: Vital Signs Temp Pulse Resp BP Pulse Ox 98.1 F 108 H 18 161/76 H 98 05/02/19 14:11 05/03/19 04:20 05/02/19 14:11 05/03/19 04:20 05/02/19 14:11 Oxygen Delivery Method Room Air Weight: 109.815 kg Body Mass Index (BMI) 40.3 Intake and Output for Last 24 Hours 05/01/19 05/02/19 05/03/19 23:59 23:59 23:59 Intake Total 1760 / 1760 2029 / 2029 1140 / 1140 Output Total 2150 / 2150 1550 / 1550 1350 / 1350 Balance -390 / -390 480 / 480 -210 / -210 Laboratory Results 05/03/19 06:11: POC Glucose 117 H Current Medications Acetaminophen (Tylenol) 1,000 mg PO Q8H PRN PRN PRN Reason: Pain Score 1-3/10 Last Admin: 05/01/19 14:24 Dose: 1,000 mg Documented by: Albuterol/Ipratropium (Duoneb) 3 ml INHALATION Q6H.RT PRN PRN Reason: SHORTNESS OF BREATH Amiodarone HCl (Cordarone) 200 mg PO DAILY [facility] Last Admin: 05/03/19 04:19 Dose: 200 mg Documented by: Apixaban (Eliquis) 5 mg PO BID [facility] Last Admin: 05/03/19 04:18 Dose: 5 mg Documented by: Ascorbic Acid (Vitamin C) 500 mg PO BID [facility] Last Admin: 05/03/19 04:18 Dose: 500 mg Documented by: Bisacodyl (Dulcolax) 10 mg PO DAILY PRN PRN Reason: Constipation Last Admin: 04/01/19 05:17 Dose: 10 mg Documented by: Clonazepam (Klonopin) 0.5 mg PO QHS [facility] Last Admin: 05/02/19 19:42 Dose: 0.5 mg Documented by: Glucagon () 1 mg IM .X1 PRN PRN Reason: Hypoglycemia Dextrose (Dextrose 10%-Water) 250 mls @ 999 mls/hr IV .Q16M PRN; Protocol PRN Reason: HYPOGLYCEMIA [facility]apine) [facility] Last Admin: 05/02/19 19:42 Dose: 25 mg Documented by: Metoprolol Tartrate (Lopressor (Beta Marcella)) 100 mg PO BID [facility] Last Admin: 05/03/19 04:20 Dose: 100 mg Documented by: Multi-Ingredient Cream (Eucerin) 1 applic TOPICAL [facility]; Protocol Last Admin: 05/02/19 19:50 Dose: 1 applicatio Documented by: Multivit/Ca Carb/B Cmplx/FA/Prenat (Nephrocaps, [facility]aphro) [facility] Last Admin: 05/03/19 08:33 Dose: 1 capsule Documented by: Nutritional Formula (Thor - Louisa Flavor) [facility] Last Admin: 05/03/19 08:32 Dose: 1 packet Documented by: Nystatin (Mycostatin Powder) 1 applic TOPICAL 1000,2200 [facility]; Protocol Last Admin: 05/03/19 11:47 Dose: 1 applicatio Documented by: Oxycodone HCl (Oxyir) 5 mg PO Q6H PRN PRN PRN Reason: Pain Score 4-10/10 Last Admin: 05/03/19 11:03 Dose: 5 mg Documented by: Polyethylene Glycol (Miralax) 17 gm PO DAILY [facility] Last Admin: 05/03/19 04:19 Dose: 17 gm Documented by: Polysaccharide Iron Complex (Ferrex 150) [facility] Last Admin: 05/03/19 08:32 Dose: 150 mg Documented by: Senna/Docusate Sodium (Senokot-S, Laureen-Colace) 1 tablet PO BID [facility] Last Admin: 05/03/19 04:18 Dose: 1 tablet Documented by: Sodium Hypochlorite (Dakins Solution 0.25% (1/2 Strength)) 1 applic TOPICAL 1000,2200 [facility]; Protocol Last Admin: 05/03/19 11:46 Dose: 1 applicatio Documented by: Zinc Sulfate (Zinc Sulfate) 220 mg PO BID [facility] Last Admin: 05/03/19 04:19 Dose: 220 mg Documented by: Discharge Diet: No Restrictions Discharge Activity: Return to Normal Activity, May Shower, Use Walker Weight Bearing Status: Weight bearing as tolerated Call your doctor if you observe: Fever of 101 or Higher, Inability to urinate, Inability to have a bowel movement, Shortness of breath, Chest pain, Uncontrolled pain Home Medications: Medications to take at Discharge Clonazepam 1 mg PO BID 02/21/19 Loxapine Succinate [Loxapine] 25 mg PO QHS 02/21/19 Amiodarone HCl 200 mg PO DAILY 03/25/19 Ascorbic Acid [Vitamin C] 500 mg PO BID 03/25/19 Oxycodone [Oxyir] 5 mg PO Q6H PRN PRN 03/25/19 Acetaminophen [Tylenol] 1,000 mg PO Q8H PRN PRN tablet 05/03/19 Apixaban [Eliquis] 5 mg PO BID #60 tab 05/03/19 Folic Acid/Vitamin B Comp W-C [Nephrocaps, Renaphro] 1 capsule PO DAILYCM capsule 05/03/19 Iron Polysaccharide Complex [Ferrex 150] 150 mg PO DAILYCM #30 cap 05/03/19 Metoprolol Tartrate [Lopressor (beta marcella)] 100 mg PO BID #60 tab 05/03/19 Mineral Oil/Petrolatum,White [Eucerin] 1 applic TOPICAL QHS jar 05/03/19 Nutritional Supplement [Thor - ORANGE FLAVOR] 1 packet PO BIDCM #60 packet 05/03/19 Nystatin Powder [Mycostatin Powder] 1 applic TOPICAL 1000,2200 bottle 05/03/19 Oxycodone [Oxyir] 5 mg PO Q6H PRN PRN 7 Days #28 tablet 05/03/19 Polyethylene Glycol 3350 [Miralax] 17 gm PO DAILY #30 packet 05/03/19 Senna/Docusate Sodium [Senokot-S] 1 tab PO BID #60 tab 05/03/19 Sodium Hypochlorite [Dakins Solution 0.25% (1/2 Strength)] 1 applic TOPICAL BID #1 bottle 05/03/19 Zinc Sulfate 220 mg PO BID #60 cap 05/03/19 Following Prescrptions Were Given to Patient: Sodium Hypochlorite [Dakins Solution 0.25% (1/2 Strength)] 1 applic TOPICAL BID #1 bottle Transmission Status: Pending to [facility] [place], Apixaban [Eliquis] 5 mg PO BID #60 tab Transmission Status: Pending to [facility] [place], Iron Polysaccharide Complex [Ferrex 150] 150 mg PO DAILYCM #30 cap Transmission Status: Pending to [facility] [place], Nutritional Supplement [Thor - ORANGE FLAVOR] 1 packet PO BIDCM #60 packet Transmission Status: Pending to [facility] [place], Metoprolol Tartrate [Lopressor (beta marcella)] 100 mg PO BID #60 tab Transmission Status: Pending to [facility] [place], Polyethylene Glycol 3350 [Miralax] 17 gm PO DAILY #30 packet Transmission Status: Pending to [facility] [place], Oxycodone [Oxyir] 5 mg PO Q6H PRN PRN 7 Days #28 tablet PRN Reason: Pain Score 4-10/10 Transmission Status: Sent to [facility] [place], Senna/Docusate Sodium [Senokot-S] 1 tab PO BID #60 tab Transmission Status: Pending to [facility] [place], Zinc Sulfate 220 mg PO BID #60 cap Transmission Status: Pending to [facility] [place], Primary Care Physician: Lai Londono MD [Primary Care Provider] - Please follow up with your Primary Care Physician in: 1 week. Please Follow Up With: Lai Londono MD (PCP) When: 1 week. Disposition: Home with Home Health Minutes spent on discharge:: 35 Patient Condition:: Stable Medical Necessity - Tobacco Use Smoking Status: Heavy Smoker (>10/day) Tobacco Use: Cigarettes Meaningful Use Info Meaningful Use Diagnoses (Choose all that apply): None applicable
--- NOTE | 2019-05-03 15:57 | CASEMGMT ---
Addendum entered by Heather Le 05/03/19 17:03: Dtr contacted SW and stated she spoke with [employer] again and they reported pt is over resources because multiple household members income was reported, and she is completing another application online. Dtr stated she has not filed an appeal currently. Will continue to follow. Original Note: Social Work Daughter contacted SW - discussed DC date and referrals. Dtr stated pt is over resources for Medicaid per [employer] and does not want to spend down. Explained appeal rights and financial liability. Dtr voiced filing an appeal. Will await outcome. WILLIAM Jerez
[2019-05-03 16:00] VITALS: BP 123/45; PULSE 82; RESP 16; TEMP 36.4; O2SAT 97
[2019-05-03 17:06] VITALS: PULSE 82
[2019-05-03] MEDS: LOXAPINE SUCCINATE 25 MG CAPSULE PO (22:14)
[2019-05-03] MEDS: clonazePAM 0.5 MG Tablet PO (22:15)
[2019-05-04 06:14] VITALS: BP 110/74; PULSE 99
[2019-05-04] MEDS: Metoprolol Tartrate 100 MG Tablet PO ×2 (06:14→16:54)
[2019-05-04] MEDS: oxyCODONE 5 MG Tablet PO ×3 (06:14→22:59)
[2019-05-04] MEDS: Ascorbic Acid 500 MG Tablet PO ×2 (06:14→16:54)
[2019-05-04] MEDS: Senna/Docusate Sodium 1 Tablet PO (06:14)
[2019-05-04] MEDS: Amiodarone 200 MG Tablet PO (06:14)
[2019-05-04] MEDS: APIXABAN 5 MG TABLET PO ×2 (06:14→16:54)
[2019-05-04] MEDS: Polyethylene Glycol 3350 17 GM PACKET PO (06:14)
[2019-05-04 06:15] LABS: Bedside Glucose 99 mg/dL (70-110)
[2019-05-04] MEDS: Iron Polysaccharide Complex 150 MG CAPSULE PO (08:49)
[2019-05-04] MEDS: Folic Acid/Vitamin B Comp W-C 1 Capsule 1 CAP PO (08:49)
[2019-05-04] MEDS: Nystatin Powder 15gm Bottle 1 APPLIC TOPICAL ×2 (10:49→22:33)
[2019-05-04] MEDS: DAKIN'S SOL HALF STRENGTH (=0.25%) 1 APPLIC TOPICAL ×2 (10:49→22:32)
[2019-05-04 11:24] VITALS: PULSE 76; RESP 18; O2SAT 96
[2019-05-04 14:44] VITALS: BP 135/59; PULSE 82; RESP 18; TEMP 36.7; O2SAT 90
[2019-05-04 16:54] VITALS: PULSE 82
--- NOTE | 2019-05-04 18:42 | CASEMGMT ---
Addendum entered by Marisela Polanco 05/04/19 19:43: Correction to ID#[id number] Original Note: Social Work Patient appealing. Clinicals faxed to [facility]. Control ID#[id number] for appeal. Ellis THOMAS, DEVORAH
[2019-05-04] MEDS: LOXAPINE SUCCINATE 25 MG CAPSULE PO (22:26)
[2019-05-04] MEDS: clonazePAM 0.5 MG Tablet PO (22:30)
[2019-05-05 06:16] LABS: Bedside Glucose 115 mg/dL (70-110)
[2019-05-05] MEDS: Amiodarone 200 MG Tablet PO (06:53)
[2019-05-05 06:54] VITALS: BP 110/41; PULSE 104
[2019-05-05] MEDS: Polyethylene Glycol 3350 17 GM PACKET PO (06:54)
[2019-05-05] MEDS: Ascorbic Acid 500 MG Tablet PO ×2 (06:54→17:13)
[2019-05-05] MEDS: Senna/Docusate Sodium 1 Tablet PO ×2 (06:54→17:14)
[2019-05-05] MEDS: Metoprolol Tartrate 100 MG Tablet PO ×2 (06:54→17:14)
[2019-05-05] MEDS: APIXABAN 5 MG TABLET PO ×2 (06:54→17:13)
[2019-05-05] MEDS: Iron Polysaccharide Complex 150 MG CAPSULE PO (08:04)
[2019-05-05] MEDS: Folic Acid/Vitamin B Comp W-C 1 Capsule 1 CAP PO (08:04)
[2019-05-05] MEDS: oxyCODONE 5 MG Tablet PO ×2 (08:15→18:11)
--- NOTE | 2019-05-05 08:19 | NURSING ---
ALL CARE GIVEN IN ROOM DUE TO PT IN PRECAUTIONS.
[2019-05-05 10:00] VITALS: PULSE 76; RESP 18; O2SAT 96
[2019-05-05] MEDS: DAKIN'S SOL HALF STRENGTH (=0.25%) 1 APPLIC TOPICAL ×2 (10:52→21:01)
[2019-05-05] MEDS: Nystatin Powder 15gm Bottle 1 APPLIC TOPICAL ×2 (10:53→21:02)
[2019-05-05] MEDS: Acetaminophen 500 MG Tablet 1000 MG PO ×2 (12:28→21:05)
[2019-05-05 14:58] VITALS: BP 108/47; PULSE 75; RESP 18; TEMP 36.8; O2SAT 91
[2019-05-05 17:14] VITALS: PULSE 75
[2019-05-05] MEDS: LOXAPINE SUCCINATE 25 MG CAPSULE PO (21:02)
[2019-05-05] MEDS: clonazePAM 0.5 MG Tablet PO (21:02)
[2019-05-06] MEDS: Polyethylene Glycol 3350 17 GM PACKET PO (05:54)
[2019-05-06] MEDS: oxyCODONE 5 MG Tablet PO ×3 (05:54→22:20)
[2019-05-06] MEDS: Ascorbic Acid 500 MG Tablet PO ×2 (05:55→16:59)
[2019-05-06] MEDS: Senna/Docusate Sodium 1 Tablet PO ×2 (05:55→16:58)
[2019-05-06] MEDS: APIXABAN 5 MG TABLET PO ×2 (05:55→16:59)
[2019-05-06] MEDS: Amiodarone 200 MG Tablet PO (05:55)
[2019-05-06 05:56] VITALS: BP 102/52; PULSE 88
[2019-05-06] MEDS: Metoprolol Tartrate 100 MG Tablet PO ×2 (05:56→16:58)
[2019-05-06 06:00] LABS: Bedside Glucose 105 mg/dL (70-110)
[2019-05-06] MEDS: Iron Polysaccharide Complex 150 MG CAPSULE PO (08:45)
[2019-05-06] MEDS: Folic Acid/Vitamin B Comp W-C 1 Capsule 1 CAP PO (08:45)
[2019-05-06] MEDS: DAKIN'S SOL HALF STRENGTH (=0.25%) 1 APPLIC TOPICAL ×2 (11:34→22:28)
[2019-05-06] MEDS: Nystatin Powder 15gm Bottle 1 APPLIC TOPICAL ×2 (11:34→22:28)
--- NOTE | 2019-05-06 13:14 | CASEMGMT ---
Social Work Luz Maria notified SW patient lost her appeal and LCD remains 05/07. Left message with daughter. Confirmed w/c order with [facility]. Will make APS referral at DC to ensure safety for pt at home. Spoke with PCP healthcare management to inform her of DC plans and referrals in place. Faxed requested information. Plan: DC home with daughter 05/07, w/c, [facility] PT/OT/SN/SW, APS referral. Heather Le, CHHA SHARED SERVICES MANAGER
[2019-05-06 15:38] VITALS: BP 92/63; PULSE 88; RESP 18; TEMP 36.8; O2SAT 95
[2019-05-06 16:58] VITALS: PULSE 88
[2019-05-06] MEDS: Acetaminophen 500 MG Tablet 1000 MG PO (16:59)
[2019-05-06] MEDS: clonazePAM 0.5 MG Tablet PO (22:20)
[2019-05-06] MEDS: LOXAPINE SUCCINATE 25 MG CAPSULE PO (22:20)
[2019-05-07 06:16] LABS: Bedside Glucose 111 mg/dL (70-110)
[2019-05-07 06:33] VITALS: BP 112/40; PULSE 82
[2019-05-07] MEDS: Senna/Docusate Sodium 1 Tablet PO (06:33)
[2019-05-07] MEDS: Ascorbic Acid 500 MG Tablet PO (06:33)
[2019-05-07] MEDS: Metoprolol Tartrate 100 MG Tablet PO (06:33)
[2019-05-07] MEDS: Amiodarone 200 MG Tablet PO (06:33)
[2019-05-07] MEDS: oxyCODONE 5 MG Tablet PO ×2 (06:33→12:37)
[2019-05-07] MEDS: APIXABAN 5 MG TABLET PO (06:33)
[2019-05-07] MEDS: Folic Acid/Vitamin B Comp W-C 1 Capsule 1 CAP PO (07:52)
[2019-05-07] MEDS: Iron Polysaccharide Complex 150 MG CAPSULE PO (07:52)
--- NOTE | 2019-05-07 09:05 | CASEMGMT ---
Addendum entered by Heather Le 05/07/19 11:57: Daughter returned phone call. 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 Contacted [facility] for cost - provided to dtr and that they will bill pt, it will not be an up front cost. Dtr agreeable. W/c transport scheduled for 2 pm on this date. Dtr stated she will be home at patient's arrival time. Informed w/c from [facility] [place] should be delivered to the home on this date and [facility] will call to schedule appt. Original Note: Social Work Left two messages with dtr to confirm patient's DC on this date - notified her if she is unable to transport pt, SW can schedule w/c transport but it would be private pay. Will await return phone call. WILLIAM JerezW
[2019-05-07] MEDS: DAKIN'S SOL HALF STRENGTH (=0.25%) 1 APPLIC TOPICAL (10:45)
[2019-05-07] MEDS: Nystatin Powder 15gm Bottle 1 APPLIC TOPICAL (10:48)
--- NOTE | 2019-05-07 13:18 | NURSING ---
attempted to call discharge instructions to pt's responsible constitution party, Rosaline Smith. left voicemail at this time
[2019-05-07 13:50] VITALS: RESP 18
--- NOTE | 2019-05-07 14:02 | CASEMGMT ---
Social Work Reviewed and agreed with social work purchasing intern documentation on this date. Heather Le, RESIDENTIAL TREATMENT SPECIALIST COST CONTROL ANALYST
--- NOTE | 2019-05-07 16:07 | CASEMGMT ---
Social Work APS referral made for pt to ensure safety for pt at home and that dtr is providing necessary care. APS will be out within 48 hours. Spoke with Dl at [facility]. WILLIAM JerezW
--- NOTE | 2019-05-08 16:49 | CASEMGMT ---
Social Work Reviewed and agreed with social work compensation intern documentation on this date. Heather Le, WORLD LANGUAGE TEACHER FRAME STRIPPER AND CRUSHER
== END 2019-05-07 14:27 | disposition home health service (06) | DRG 949 ==
PROVIDERS: Admitting Provider Family Medicine Geriatric Medicine; Family Provider Family Medicine; PCP Family Medicine; Referring Provider Family Medicine Geriatric Medicine; Visit Provider Family Medicine Geriatric Medicine
DX: Z48.815 Encounter for surgical aftercare following surgery on the digestive system (principal); K61.1 Rectal abscess; Z68.41 Body mass index [BMI] 40.0-44.9, adult; I48.20 Chronic atrial fibrillation, unspecified; N39.0 Urinary tract infection, site not specified; T83.518A Infection and inflammatory reaction due to other urinary catheter, initial encounter; G47.33 Obstructive sleep apnea (adult) (pediatric); E66.01 Morbid (severe) obesity due to excess calories; M19.90 Unspecified osteoarthritis, unspecified site; N18.9 Chronic kidney disease, unspecified; I12.9 Hypertensive chronic kidney disease with stage 1 through stage 4 chronic kidney disease, or unspecified chronic kidney disease; E11.22 Type 2 diabetes mellitus with diabetic chronic kidney disease; F20.9 Schizophrenia, unspecified; L73.2 Hidradenitis suppurativa; K58.9 Irritable bowel syndrome, unspecified; B35.4 Tinea corporis; F31.9 Bipolar disorder, unspecified; F43.12 Post-traumatic stress disorder, chronic; Z71.3 Dietary counseling and surveillance; F17.210 Nicotine dependence, cigarettes, uncomplicated; D50.9 Iron deficiency anemia, unspecified; B96.20 Unspecified Escherichia coli [E. coli] as the cause of diseases classified elsewhere; Y73.8 Miscellaneous gastroenterology and urology devices associated with adverse incidents, not elsewhere classified
CPT/HCPCS: 36415; 80048; 81001; 82962; 85025; 87086; 87088; 87186; 92507; 92523; 92526; 94640; 97110; 97116; 97162; 97166; 97530; 97535; 97802; J7030

== ENCOUNTER 2019-06-13 13:04 | Inpatient (IN) | payer MEDICARE, MEDICAID, SELFPAY ==
[2019-03-25 15:00] VITALS: BMI 40.3
[2019-06-13] VITALS (35 sets, daily range): BP systolic 73–124; BP diastolic 43–83; PULSE 17–113; RESP 12–27; TEMP 37.2–38.2; O2SAT 88–100; BMI 40.1; BMI 39.9; BMI 40.0
--- NOTE | 2019-06-13 13:13 | EKG12_ITS ---
Test Reason : SOB Blood Pressure : / mmHG Vent. Rate : 075 BPM Atrial Rate : 225 BPM P-R Int : 000 ms QRS Dur : 092 ms QT Int : 388 ms P-R-T Axes : 043 -39 015 degrees QTc Int : 433 ms Atrial flutter with 3:1 A-V conduction Left axis deviation Minimal voltage criteria for LVH, may be normal variant Nonspecific ST abnormality Abnormal ECG Confirmed by AMY REYES, DENICE ([id number]), business editor FARZANEH PEREZ ([id number]) on 06/18/2019 2:15:56 PM Referred By: OMER Confirmed By:MANUEL REYES MD
[2019-06-13] MEDS: 0.9% Normal Saline 1,000 ML 999 ML IV ×2 (13:27→14:40)
--- NOTE | 2019-06-13 13:29 | ED.VIS.DYS ---
History of Present Illness Chief Complaint: Shortness of Breath Informant: Patient, EMS Onset: Days Associated Symptoms: Cough Narrative: Patient is a 59-year-old female with history of atrial fibrillation, anxiety, schizophrenia, bipolar disorder and significant perirectal abscess causing sepsis in February, 4 months ago, presenting from long-term facility for worsening hypoxia and shortness of breath. Patient was diagnosed with pneumonia and started on Levaquin on 06/05, 1 week ago. She was started on Levaquin. She was swabbed for coronavirus as well as viral respiratory panel 2 days ago. Results are still pending. Today she had increased oxygen demand requiring 4 L and still hypoxic in the high 80s. No report of fevers. Patient was transferred to the emergency room by EMS for further evaluation. Patient is also complaining of a headache. Patient does have a history of headaches. Will evaluate the patient she is complaining of left hip pain. It is not clear how long it is been there. Is not clear patient had any falls. Patient states she is wheelchair-bound. She cannot tell me why she is. After reading information on clinic think it seems that she is wheelchair-bound secondary to her recent abscess and incision and drainage in her buttocks. Past Medical History - Allergies and Home Meds Allergies/Adverse Reactions: Allergies diltiazem Allergy (Verified 06/13/19 15:55) Swelling aripiprazole [From Abilify] Adverse Reaction (Verified 06/13/19 15:55) Anaphylaxis doxepin Adverse Reaction (Verified 06/13/19 15:55) Other doxycycline Adverse Reaction (Verified 06/13/19 15:55) Other ibuprofen [From Motrin] Adverse Reaction (Verified 06/13/19 15:55) Nausea/Vom/Diarrhea naproxen [From Naprosyn] Adverse Reaction (Verified 06/13/19 15:55) Nausea/Vom/Diarrhea prednisone Adverse Reaction (Verified 06/13/19 15:55) Other made me real mean risperidone [From Risperdal] Adverse Reaction (Verified 06/13/19 15:55) Swelling Past Medical History: - - atrial fibrillation, anxiety, schizophrenia, bipolar disorder and significant perirectal abscess, hidradenitis suppurativa Surgical History: cholecystectomy, - - Left breast abscess, right groin, thigh, abdomen abscess. Axillary, groin abscess. Lives: [facility] [place] Smoking Status: Heavy Smoker (>10/day) - Family History Maternal Family History: Reports: No pertinent history Paternal Family History: Reports: No pertinent history Review of Systems General: Reports: Chills, Malaise. Denies: Fever, Sweats Eyes: Denies: Visual changes - bilaterally, Diplopia ENT: Denies: Rhinorrhea, Sore throat Cardiovascular: Denies: Chest pain, Palpitations Respiratory: Reports: Dyspnea, Cough. Denies: Dyspnea on exertion Gastrointestinal: Denies: Abdominal pain, Nausea, Vomiting, Diarrhea, Melena, Hematochezia Genitourinary: Denies: Dysuria, Hematuria, Frequency Musculoskeletal: Reports: Myalgias, Extremity Pain - Left hip. Denies: Back pain Skin: Denies: Rash, Wounds Neurological: Reports: Headache. Denies: Weakness, Numbness Physical Exam Vital Signs/Narrative: Vital Signs Temp Pulse Resp BP Pulse Ox 06/13/19 13:27 75 23 H 108/56 L 88 06/13/19 13:08 99.1 F 84 26 H 97/56 L 91 06/13/19 13:05 99.1 F 84 26 H 97/56 L 91 Inital Vital Signs reviewed: Yes General: Well nourished, Well developed, Obese, No Acute Distress Head: Normocephalic, Atraumatic Eyes: Perrl, EOMI ENT: No rhinorrhea, Dry mucous membranes Neck: Supple, Nontender, No JVD Cardiovascular: Regular rate, Regular rhythm, No murmurs Respiratory: Chest nontender, Rhonchi - Diffuse bilateral, Diminished. Negative for: Wheezing, Decreased Air Movement, Retractions Abdomen: Soft, Nontender, Nondistended, Normal bowel sounds Back: Nontender, Normal Inspection Extremities: Nontender, No edema, - - Patient is holding both hips flexed with limited range of motion. Negative for: Tenderness, Edema Skin: Normal color, No rash Neurological: Alert, Oriented x3, Cranial nerves II-XII grossly intact, Normal Strength, Normal Sensation Psychological: Normal Mood, - - Flat affect Diagnostic/Tx/Re-eval Chest X-Ray - ED: 1 View, Read by ED Physician, - - Bilateral interstitial prominence and infiltrates - Rhythm Strip Rhythm Strip: A-fib Rate: 75 Ectopy: None - EKG Initial EKG Interpretation: Atrial Flutter, - - Atrial flutter at a rate of 75 with 3-1 AV conductionQRS 92QTc 433Left axis deviationNormal ST segments Treatment - Dyspnea: Oxygen - Medical Decision Making Should arise to worsening hypoxia. She has had likely pneumonia for the past week. Patient had been increased O2 demands. While patient is in the emergency room she has significantly increased O2 demands. She is required a nonrebreather and is only 86 to 88%. Believe patient will require intubation. I discussed with her daughter, Rosaline, who is also her medical decision-maker. She states she would like her mother to be intubated if it means otherwise she would . I did ask her if she would like chest compressions of her heart were to stop. Daughter said no she would not. Patient is made DNR CCA with intubation. Daughter did call back and let me know that at [place] patient recently had a CT scan that showed something where her gallbladder is. Patient does not have a gallbladder. She is wondering if this could be causing her infection. This will be relayed to the medicine team for further evaluation. Right now her issue seems to be primarily respiratory. See procedure note for intubation. Patient tolerated it well. She is placed on a fentanyl drip and given a dose of Versed for sedation. Case is discussed with ICU, Dr. Ruth. He will see the patient in the ICU. Will call medicine for admission. I will order IV Zosyn to broaden antibiotic coverage. While patient is in the ER she becomes more hypotensive. Patient is given a second fluid bolus. As patient still has a map below 65 she will be started on peripheral pressors. Will discuss with ICU as patient will need a central line. Did call her daughter, Rosaline, medical POA who states patient had problems with hypotension when she was at [facility]. She had a PICC line at that time. She is agreeable for central line. Risk and benefits are discussed. Levophed started peripherally. ICU comfortable with this. Patient stabilized been critical condition at time of disposition. Procedures Procedure(s): Intubation. Patient monitored on continuous telemetry as well as pulse oximetry. She is preoxygenated with a nonrebreather mask up to 90%. This is done under emergent conditions of I did discuss with her daughter, medical power of title attorney prior to intubation who was agreeable with it. Patient given 300 mg of IV ketamine. Video laryngoscopy used to visualize the vocal cords and 7.5 ET tube was passed with under direct visualization. Patient immediately hooked up to ventilator. Patient tolerated procedure well with no immediate complications. Disposition: Admit to ICU Critical care time (excluding procedures): 30-74 minutes - 45-multiple discussions on the phone with patient's daughter/medical power of title attorney. Direct bedside care managing severe sepsis/hypotension/respiratory failure. Multiple discussions with admitting physician as well as ICU physician coordinating care. ED Disposition - Plan for ED Patient: Disposition: Acute [facility] Diagnosis: Suspected SARS, Severe sepsis, Acute respiratory failure with hypoxia and hypercapnia, Bilateral pneumonia
[2019-06-13 13:46] LABS: Absolute Lymphocyte Count 1.13 X10^3/uL (0.83-4.51); Absolute Neutrophil Count 9.7 X10^3/uL (2.0-7.7); Basophil# 0.01 X10^3/uL; Basophil% 0.1 % (0-1); Eosinophil# 0.03 X10^3/uL; Eosinophils% 0.3 % (0-5); Hematocrit 35.6 % (37-47); Hemoglobin 10.9 g/dL (12.0-15.0); Lymphocyte # 1.13 X10^3/ul (4.0); Lymphocyte % 10.2 % (19-41); Mean Corp Hgb Conc 30.6 g/dL (32-36); Mean Corpuscular Hgb 26.5 pg (27.0-32.0); Mean Corpuscular Volume 86.4 fL (81-99); Mean Platelet Vol. 11.1 fl (6.2-12.0); Monocyte# 0.13 X10^3/uL; Monocyte% 1.2 % (0-10); NRBC Flagged by Analyzer 0 % (0-5); Neutrophil % 87.4 % (47-70); POSITIVE MORPHOLOGY YES; Platelet Count 242 K/mm3 (150-450); RBC Distribution Width CV 16.4 % (11.6-14.6); RBC Distribution Width SD 51.6 fl (35.1-43.9); Red Blood Count 4.12 M/mm3 (4.2-5.4); White Blood Count 11.1 K/mm3 (4.4-11.0)
[2019-06-13 13:56] LABS: International Normalized Ratio 1.7; Prothrombin Time (Protime)PT. 19.7 SECONDS (11.7-14.9)
[2019-06-13 13:57] LABS: Partial Thromboplast Time 36.5 Seconds (24.1-36.2)
[2019-06-13 13:58] LABS: ALB/GLOB Ratio 0.3 RATIO (0.9-2.4); AST(SGOT) 88 U/L (15-37); Alanine Aminotransfer ALT/SGPT 47 U/L (13-56); Albumin, Serum 1.6 g/dL (3.2-5.0); Alkaline Phosphatase 182 U/L (45-117); Anion Gap 9 (5-15); BUN 42 mg/dL (7-18); BUN/Creat Ratio 38.9 RATIO (10-20); Calcium,Total 8.5 mg/dL (8.5-10.1); Chloride 104 mmol/L (98-107); Creatinine, Serum 1.08 mg/dL (0.55-1.02); EST Glomerular Filtration Rate 55 mL/min (>60); Est Glom Filt Rate - Afr Amer 67 mL/min (>60); Estimated Creatinine Clearance 47.83 ml/min; Globulin 6.2 g/dL (2.2-4.2); Glucose 112 mg/dL (74-106); Potassium 3.9 mmol/L (3.5-5.1); Protein, Total 7.8 g/dL (6.4-8.2); Sodium Level 138 mmol/L (136-145)
[2019-06-13] MEDS: fentaNYL 100 MCG/2 ML Ampul IV (13:59)
[2019-06-13 14:05] LABS: Differential Indicated SCAN CRITERIA MET
[2019-06-13] MEDS: Midazolam 5 MG/ML Syringe IV (14:15)
[2019-06-13 14:23] LABS: Differential Comment SCANNED; Reactive Lymphocyte 1+
[2019-06-13 14:30] LABS: Allen Test POS; Base Excess -2 mmol/L (-2 to +2); Bicarbonate 24.1 mmol/L (22-26); Blood Gas Specimen Type ART; FI02 100; Mode A-C; O2 Delivery Device Vent; PEEP 15; PO2 190 mmHG (75-100); RR 400; SITE R Radial; SO2 100 % (95-99); Time Given 1425; Total Carbon Dioxide 26 mmol/L; Vt 5; pH 7.31 (7.35-7.45)
--- NOTE | 2019-06-13 14:30 | RAD_ITS ---
STUDY: X-RAY - PELVIS AND LEFT HIP REASON FOR EXAM: Female, 59 years old. PAIN -- BEST IMAGES POSSIBLE D/T PT CONDITION TECHNIQUE: 2 Limited views of the pelvis and hip. COMPARISON: None. FINDINGS: There is a non-specific bowel gas pattern. There are multiple calcified phleboliths. There is narrowing with cortical sclerosis and osteophyte formation of the sacroiliac joint consistent with degenerative osteoarthritic changes. Normal bilateral superior and inferior pubic rami. There is narrowing with sclerosis of the pubic symphysis. Normal bilateral ischial tuberosities. Marked degree of a joint space narrowing involving both hip joints with degenerative spur formation of the acetabular and inferior medial aspect of both femoral heads. RAD/HIP, UNI W/ Pelvis 2-3 Views IMPRESSION: Degenerative changes of both hips as well as the sacroiliac joints. Electronically Signed: Steve Fierro, at 14:55 EDT , Service support ,
--- NOTE | 2019-06-13 14:30 | RAD_ITS ---
STUDY: X-RAY - ABDOMEN/PELVIS REASON FOR EXAM: Female, 59 years old. LINE PLACEMENT -- BEST IMAGES POSSIBLE D/T PT CONDITION TECHNIQUE: Single AP view of the abdomen / pelvis. COMPARISON: None. FINDINGS: Mild increased markings at the left lung base. An orogastric tube is seen with the tip in the distal portion of the stomach/pylorus. Degenerative changes of the lumbar spine. RAD/Abdomen Single View (Portable) IMPRESSION: The tip of the orogastric tube is seen in the distal stomach/pyloric region. Electronically Signed: Steve Fierro, at 14:53 EDT , Service support ,
--- NOTE | 2019-06-13 14:30 | RAD_ITS ---
STUDY: X-RAY CHEST REASON FOR EXAM: Female, 59 years old. INCREASED SOB -- LINE PLACEMENT -- BEST IMAGES POSSIBLE D/T PT CONDITION TECHNIQUE: Single AP portable view of the chest. COMPARISON: Comparison is made with prior examination dated February 21, 2019. FINDINGS: An endotracheal tube is in situ. The tip is at 4.0 cm Proximal to the garret. An orogastric tube is seen with the tip below the left hemidiaphragm. EKG electrodes are seen. There is evidence of a patchy infiltrates in the right upper and lower lobes as well as in the left midlung. There is no demonstrated pleural abnormality. Normal size heart. Normal mediastinum and fernanda. Normal visualized pulmonary arteries. There is atherosclerotic calcification of the aortic arch with tortuosity. There are diffuse degenerative changes of the visualized thoracic spine. Normal visualized ribs, clavicles, and shoulders. There is no demonstrated abnormality of the visualized soft tissue structures of the upper abdomen. RAD/Chest 1 View (Portable) IMPRESSION: Infiltrates in the right lung as well as in the left mid lung. Follow-up is recommended. The tip of the endotracheal tube is at 4 cm proximal to the garret. Electronically Signed: Steve Fierro, at 14:55 EDT , Service support ,
[2019-06-13 14:32] LABS: Lactic Acid 2.1 mmol/L (0.4-1.9)
[2019-06-13] MEDS: fentaNYL drip 100 ML 5 MCG IV (14:39)
--- NOTE | 2019-06-13 14:50 | PCM.HP.STD ---
Problem List (1) Suspected SARS Status: Acute (2) Perirectal abscess Status: Acute (3) Atrial fibrillation Status: Chronic Qualifiers: Atrial fibrillation type: permanent Qualified Code(s): I48.21 - Permanent atrial fibrillation (4) Diabetes mellitus Status: Chronic Qualifiers: Diabetes mellitus type: type 2 Diabetes mellitus long term care phlebotomist insulin use: without long term care phlebotomist use Diabetes mellitus complication status: without complication Qualified Code(s): E11.9 - Type 2 diabetes mellitus without complications (5) Hypertension Status: Chronic Qualifiers: Hypertension type: essential hypertension Qualified Code(s): I10 - Essential (primary) hypertension (6) Morbid obesity Status: Chronic (7) Schizophrenia Status: Chronic Qualifiers: Schizophrenia type: unspecified Qualified Code(s): F20.9 - Schizophrenia, unspecified History of Present Illness Date of Admission: 06/13/19 Chief Complaint: Shortness of breath ongoing for 6 days. History was obtained from [place] staff and also ED physician: The patient is a 59 year old F, resident of [facility], admitted there for subacute rehab, with history of severe hidradenitis, type II DM, diet controlled, who comes in with severe shortness of breath ongoing for 6 days. Patient's respiratory symptoms started on 06/06/19 with cough. Rapid flu test was negative for influenza A and B. Chest x-ray showed bilateral infiltrates. Patient was started on Levaquin and oxygen. She progressed to 4 L of oxygen. This morning, she complained of progressive shortness of breath and was brought to the emergency department. Vitals in the ED showed temperature of 99.1F, heart rate 84, blood pressure 97/56, RR 26, Spo2 91% on 4L oxygen. BC count 11.1, Hb 10.9, platelet count 242, INR 1.7, BMP is remarkable for BUN of 42, creatinine 1.08, lactic acid 2.1, AST 88, ALP 182, UA is unremarkable. Admitting chest x-ray showed bilateral infiltrates. X-ray of the hip showed degenerative changes. Past Medical History Past Medical History (Chronic Problems): Chronic Problems Schizophrenia (Chronic) Bipolar disorder (Chronic) Atrial fibrillation (Chronic) Hydradenitis (Chronic) Diabetes mellitus (Chronic) Hypertension (Chronic) Osteoarthritis (Chronic) Irritable bowel syndrome (Chronic) Morbid obesity (Chronic) Obstructive sleep apnea (Chronic) Post traumatic stress disorder (Chronic) Allergies diltiazem Allergy (Verified 01/24/14 11:21) Swelling aripiprazole [From Abilify] Adverse Reaction (Verified 03/25/19 15:09) Anaphylaxis doxepin Adverse Reaction (Verified 03/25/19 15:09) Other doxycycline Adverse Reaction (Verified 01/24/14 11:21) Other ibuprofen [From Motrin] Adverse Reaction (Verified 01/24/14 11:21) Nausea/Vom/Diarrhea naproxen [From Naprosyn] Adverse Reaction (Verified 01/24/14 11:21) Nausea/Vom/Diarrhea prednisone Adverse Reaction (Verified 01/28/14 14:23) Other made me real mean risperidone [From Risperdal] Adverse Reaction (Verified 03/25/19 15:09) Swelling Home Medications: Ambulatory Orders Medication Instructions Recorded Clonazepam 1 mg PO BID 02/21/19 Loxapine Succinate [Loxapine] 25 mg PO QHS 02/21/19 Amiodarone HCl 400 mg PO DAILY 03/25/19 Zinc Sulfate 220 mg PO BID #60 cap 05/03/19 Acetaminophen [Tylenol] 975 mg PO 4X/DAY 06/13/19 Albuterol Sulfate [Proair 2 puff INHALATION Q3H PRN 06/13/19 Respiclick] Ascorbic Acid [Vitamin C] 500 mg PO BIDCM 06/13/19 Folic Acid/Vitamin B Comp W-C 1 cap PO DAILYCM 06/13/19 [Nephrocaps, Renaphro] Gabapentin [Neurontin] 200 mg PO TID 06/13/19 Lactobacillus Acidophilus 1 cap PO DAILY 06/13/19 [Acidophilus] Levofloxacin [Levaquin] 500 mg PO DAILY 06/13/19 Metoprolol Tartrate 25 mg PO BID 06/13/19 Smz/Tmp Ds [Bactrim Ds] 1 tab PO DAILY 06/13/19 Surgical History: cholecystectomy, - - Left breast abscess, right groin, thigh, abdomen abscess. Axillary, groin abscess. 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 Lives: [facility] Smoking Status: Heavy Smoker (>10/day) Tobacco Use: Non-smoker Alcohol: None Drugs: None - *Family History Maternal History Items: No pertinent history Paternal History Items: No pertinent history Review of Systems Unable to obtain accurate/complete ROS d/t: Patient has been intubated and cannot answer ROS VTE Information - Inpt Only VTE Present on Admission: No VTE Pharm Prophylaxis ordered?: Yes Patient Problems: Active and Suspected Problems Suspected SARS (Acute) - Physical Exam Vitals/I&O's: Vital Signs Temp Pulse Resp BP Pulse Ox 99.1 F 77 18 77/44 L 96 06/13/19 14:08 06/13/19 14:19 06/13/19 14:19 06/13/19 14:19 06/13/19 14:19 Oxygen Flow Rate (L/min) 15 Oxygen Delivery Method Mechanical Ventilator Weight: 106.2 kg Body Mass Index (BMI) 40.1 General: Cooperative, No apparent distress, - - intubated, sedated HEENT: Atraumatic, PERRLA, EOMI, Normocephalic Oral: Moist Mucosa Neck: Supple Lungs: Clear to auscultation, Normal air movement Cardiovascular: Regular rate, Regular Rhythm, Normal S1, Normal S2, No murmurs Abdomen: Bowel Sounds Present, Soft, Non Tender, Non-Distended, No Hepato-splenomegaly Extremities: No edema Skin: No rashes Musculoskeletal: No Tenderness to Palpation of Joints or Extremities Lymphatic: No Cervical, Supraclavicular, or Inguinal Adenopathy Neurological: Cranial nerves II-XII grossly intact, Neuro grossly intact Psych/Mental Status: Normal Affect, Appropriate Laboratory Results 06/13/19 13:15: WBC 11.1 H, RBC 4.12 L, Hgb 10.9 L, Hct 35.6 L, MCV 86.4, MCH 26.5 L, MCHC 30.6 L, RDW Std Deviation 51.6 H, RDW Coeff of Bassam 16.4 H, Plt Count 242, MPV 11.1, Immature Gran % (Auto) 0.800, Neut % (Auto) 87.4 H, Lymph % (Auto) 10.2 L, [place] % (Auto) 1.2, Eos % (Auto) 0.3, Baso % (Auto) 0.1, Absolute Neuts (auto) 9.7 H, Absolute Lymphs (auto) 1.13, Nucleated RBC % 0, Differential Comment SCANNED, Reactive Lymphocytes 1+ 06/13/19 13:15: PT 19.7 H, INR 1.7, APTT 36.5 H 06/13/19 13:15: Sodium 138, Potassium 3.9, Chloride 104, Carbon Dioxide 25.0, Anion Gap 9, BUN 42 H, Creatinine 1.08 H, Estim Creat Clear Calc 47.83, Est GFR (MDRD) Af Amer 67, Est GFR (MDRD) Non-Af 55 L, BUN/Creatinine Ratio 38.9 H, Glucose 112 H, Calcium 8.5, Total Bilirubin 0.20, AST 88 H, ALT 47, Alkaline Phosphatase 182 H, Troponin I 0.041, Total Protein 7.8, Albumin 1.6 L, Globulin 6.2 H, Albumin/Globulin Ratio 0.3 L 06/13/19 13:15: Lactic Acid 2.1 H* 06/13/19 14:25: Specimen Type ART, Sample Site R Radial, pH 7.31 L, Bicarbonate Actual 24.1, POC Total CO2 26, Base Excess -2, O2 Saturation 100 H, O2 % 100, ABG pCO2 48.0 H, ABG pO2 190 H, Justo Test POS, Respiration Rate 400, O2 Delivery Device Vent, Vent Mode A-C, Tidal Volume 5, POC PEEP 15, Blood Gas Notified Whom ED MD, Blood Gas Notified Time 1425 Current Medications Fentanyl () 100 mls @ 5 mls/hr IV UD MALGORZATA; Protocol Assessment/Plan All Active Problems Debility (Acute) Sepsis (Acute) Perirectal abscess (Acute) Suspected SARS (Acute) 59 year old F, resident of [facility], admitted there for subacute rehab, with history of severe hidradenitis, type II DM, diet controlled, who comes in with severe shortness of breath ongoing for 6 days. 1. 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 Severe sepsis secondary to bilateral pneumonia/suspected COVID?19, Patient received 2 L of IV fluids in the ED Will not continue on the 30 mils per KG protocol Would rather continue on 50 mils per KG in the restrictive protocol in the event that this is COVID-19 We will closely monitor his hemodynamics We will need to repeat lactic acid per protocol 3. Acute kidney injury, prerenal, admitting creatinine is 1.08; baseline creatinine of 0.67 Secondary to #1 and #2 We will continue on fluids, recheck BMP in a.m. 4. Type II DM, diet controlled, Will continue to monitor with accucheks and insulin sliding scale 4. Hypertension, slightly hypotensive after intubation We will continue to monitor blood pressure especially after fluid boluses Would hold home metoprolol 5. Schizoaffective disorder, will hold home medication 6. DVT prophylaxis- Heparin SC 7. CODE STATUS -DNR CCA with intubation; confirmed by ED physician Inpatient E&M: [id number] Init Hosp L3
[2019-06-13 15:05] LABS: Mucous, Urine 0 SEEN /hpf (<or=2+); Red Blood Cells-Urine 0 SEEN /hpf (0-5)
[2019-06-13 15:15] LABS: Color, Urine Yellow (Yellow); Glucose, Dipstick Normal (Normal); Ketone-Dipstick 5 mg/dl (Negative); Leukocyte Esterase-Dipstick 500 /ul (Negative); Nitrite-Dipstick Negative (Negative); Occult Blood-Urine 10 /ul (Negative); Protein-Dipstick 30 mg/dl (Negative); Urine Clarity Cloudy (Clear); Urine Urobilinogen Normal (Normal)
--- NOTE | 2019-06-13 15:16 | ED.RN ---
PER RECALL ON CHART, PT IS A HEAVY SMOKER. UNK IF PT STILL SMOKES. MULTIPLE DEEP ULCERS ON GERSON AREA, GROIN AND COCCYX.
[2019-06-13 15:25] LABS: Urine Bilirubin Dipstick 6 mg/dL (Negative)
[2019-06-13 15:36] LABS: White Blood Cells 25-50 SEEN /hpf (0-5)
[2019-06-13 15:37] LABS: Coarse Granular Cast 10-25 SEEN /lpf (0-5 /lpf)
[2019-06-13 15:38] LABS: Yeast-Urine 2+ /hpf (None Seen)
[2019-06-13 15:39] LABS: Bacteria 1+ /hpf (None Seen); Calcium Oxalate Crystals Ur RARE /hpf (<or=2+); Squamous Epithelial Cells - UA 0-5 SEEN /hpf (5-10)
--- NOTE | 2019-06-13 15:47 | ED.RN ---
TELEPHONE REPORT GIVEN TO DEMOND CONDE
--- NOTE | 2019-06-13 16:09 | CASEMGMT ---
Social Work Pt is currently a resident at [facility]. Will need precert prior to return. Phone call to [facility] at [facility] and updated that pt has been admitted and requested HCPOA and Living Will be faxed to [facility]. Will follow for d/c planning. NADINE Gonzalez
--- NOTE | 2019-06-13 17:26 | PCM.CON.CC ---
Problem List (1) Infection due to joe coronavirus Status: Acute (2) Debility Status: Acute (3) Perirectal abscess Status: Acute (4) Schizophrenia Status: Chronic Qualifiers: Schizophrenia type: unspecified Qualified Code(s): F20.9 - Schizophrenia, unspecified (5) Bipolar disorder Status: Chronic (6) Atrial fibrillation Status: Chronic Qualifiers: Atrial fibrillation type: permanent Qualified Code(s): I48.21 - Permanent atrial fibrillation (7) Hydradenitis Status: Chronic (8) Diabetes mellitus Status: Chronic Qualifiers: Diabetes mellitus type: type 2 Diabetes mellitus senior living insulin use: without senior living use Diabetes mellitus complication status: without complication Qualified Code(s): E11.9 - Type 2 diabetes mellitus without complications (9) Hypertension Status: Chronic Qualifiers: Hypertension type: essential hypertension Qualified Code(s): I10 - Essential (primary) hypertension (10) Irritable bowel syndrome Status: Chronic (11) Morbid obesity Status: Chronic (12) Obstructive sleep apnea Status: Chronic (13) Post traumatic stress disorder Status: Chronic (14) Severe sepsis Status: Acute (15) Acute respiratory failure with hypoxia and hypercapnia Status: Acute Reason for Consult Date of Consultation: 06/13/19 Reason for Consultation: Respiratory failure History of Present Illness: The patient is a 59 year old F, with past medical history listed below, who presented [facility] on 06/13/2019 from a intermediate facility secondary to progressive hypoxia and shortness of breath. Patient was reportedly diagnosed with pneumonia and started on Levaquin on 06/06/2019. Patient was also swabbed for COVID 19 2 days ago and these results have come back positive. Patient was on 4 L nasal cannula and still hypoxic in the upper 80s. No reported fevers, but patient reportedly had been complaining of left hip pain. Patient is reportedly wheelchair-bound and recently (February 2019) was admitted to the hospital for an abscess, incision and drainage of her buttocks. On presentation to the ER, patient was noted to be hypoxic on a nonrebreather. Patient's daughter was in the ER and reportedly made her DNR Comfort Care arrest with intubation. Patient was intubated by ER staff and given Zosyn therapy. Patient did receive 2 L of IV fluids secondary to reported hypotension. Patient was started on vasopressors through a small peripheral line and admitted to the intensive care unit. On presentation to the intensive care unit, patient was hypertensive and relatively unresponsive on 75 mcg of fentanyl. Patient was noted to have a significant odor with foul-smelling urine. Multiple deep decubitus ulcers noted posteriorly with severe excoriation of the groin. Patient had good vent synchrony, but was requiring 70% FiO2 on 15 of PEEP to maintain saturations. Patient was unable to provide any additional history. Past Medical History Past Medical History (Chronic Problems): Chronic Problems Schizophrenia (Chronic) Bipolar disorder (Chronic) Atrial fibrillation (Chronic) Hydradenitis (Chronic) Diabetes mellitus (Chronic) Hypertension (Chronic) Osteoarthritis (Chronic) Irritable bowel syndrome (Chronic) Morbid obesity (Chronic) Obstructive sleep apnea (Chronic) Post traumatic stress disorder (Chronic) Allergies diltiazem Allergy (Verified 06/13/19 15:55) Swelling aripiprazole [From Abilify] Adverse Reaction (Verified 06/13/19 15:55) Anaphylaxis doxepin Adverse Reaction (Verified 06/13/19 15:55) Other doxycycline Adverse Reaction (Verified 06/13/19 15:55) Other ibuprofen [From Motrin] Adverse Reaction (Verified 06/13/19 15:55) Nausea/Vom/Diarrhea naproxen [From Naprosyn] Adverse Reaction (Verified 06/13/19 15:55) Nausea/Vom/Diarrhea prednisone Adverse Reaction (Verified 06/13/19 15:55) Other made me real mean risperidone [From Risperdal] Adverse Reaction (Verified 06/13/19 15:55) Swelling Home Medications: Ambulatory Orders Medication Instructions Recorded Clonazepam 1 mg PO BID 02/21/19 Loxapine Succinate [Loxapine] 25 mg PO QHS 02/21/19 Amiodarone HCl 400 mg PO DAILY 03/25/19 Zinc Sulfate 220 mg PO BID #60 cap 05/03/19 Acetaminophen [Tylenol] 975 mg PO 4X/DAY 06/13/19 Albuterol Sulfate [Proair 2 puff INHALATION Q3H PRN 06/13/19 Respiclick] Ascorbic Acid [Vitamin C] 500 mg PO BIDCM 06/13/19 Folic Acid/Vitamin B Comp W-C 1 cap PO DAILYCM 06/13/19 [Nephrocaps, Renaphro] Gabapentin [Neurontin] 200 mg PO TID 06/13/19 Lactobacillus Acidophilus 1 cap PO DAILY 06/13/19 [Acidophilus] Levofloxacin [Levaquin] 500 mg PO DAILY 06/13/19 Metoprolol Tartrate 25 mg PO BID 06/13/19 Smz/Tmp Ds [Bactrim Ds] 1 tab PO DAILY 06/13/19 Surgical History: cholecystectomy, - - Left breast abscess, right groin, thigh, abdomen abscess. Axillary, groin abscess. 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 Lives: [facility] Smoking Status: Smoker, status unknown Tobacco Use: Non-smoker Alcohol: None Drugs: None - *Family History Maternal History Items: No pertinent history Paternal History Items: No pertinent history Review of Systems Unable to obtain accurate/complete ROS d/t: Intubated and sedated Patient Problems: Active and Suspected Problems Suspected SARS (Acute) Suspected SARS (Acute) Severe sepsis (Acute) Acute respiratory failure with hypoxia and hypercapnia (Acute) Bilateral pneumonia (Acute) Infection due to [place] coronavirus (Acute) Objective: Chest x-ray shows infiltrates bilaterally with endotracheal tube in good position. KUB shows appropriate position of OG. - Physical Exam Vitals/I&O's: Vital Signs Temp Pulse Resp BP Pulse Ox 37.5 C H 82 18 115/72 100 06/13/19 16:32 06/13/19 16:32 06/13/19 16:32 06/13/19 16:32 06/13/19 16:32 Oxygen Flow Rate (L/min) 15 Oxygen Delivery Method Mechanical Ventilator Weight: 106.2 kg Body Mass Index (BMI) 40.1 Intake and Output for Last 24 Hours 06/11/19 06/12/19 06/13/19 23:59 23:59 23:59 Intake Total Balance General: - - Intubated and sedated. Morbidly obese. Little spontaneous movement noted. HEENT: Atraumatic, PERRLA, Normocephalic, - - Retrognathia noted. Oral: Moist Mucosa, No Gingival or Mucosal Lesions/ Ulcerations Neck: Supple, No JVD, No Nodes, Trachea Midline Lungs: No rhonchi, No wheeze, No rales, Diminished Cardiovascular: Regular rate, Regular Rhythm, Normal S1, Normal S2, No murmurs, No rub noted, No Gallop Abdomen: Bowel Sounds Present, Soft, Non Tender, Non-Distended, Obese Extremities: No clubbing, No cyanosis, Edema, Peripheral Pulses Normal Skin: Ulcer/ Wound - Multiple wounds of the groin and sacral area Musculoskeletal: No Tenderness to Palpation of Joints or Extremities Lymphatic: No Cervical, Supraclavicular, or Inguinal Adenopathy Neurological: Neuro grossly intact - Minimal cooperation. Bilateral spontaneous movement noted. Psych/Mental Status: Flat Affect Laboratory Results 06/13/19 13:15: WBC 11.1 H, RBC 4.12 L, Hgb 10.9 L, Hct 35.6 L, MCV 86.4, MCH 26.5 L, MCHC 30.6 L, RDW Std Deviation 51.6 H, RDW Coeff of Bassam 16.4 H, Plt Count 242, MPV 11.1, Immature Gran % (Auto) 0.800, Neut % (Auto) 87.4 H, Lymph % (Auto) 10.2 L, [place] % (Auto) 1.2, Eos % (Auto) 0.3, Baso % (Auto) 0.1, Absolute Neuts (auto) 9.7 H, Absolute Lymphs (auto) 1.13, Nucleated RBC % 0, Differential Comment SCANNED, Reactive Lymphocytes 1+ 06/13/19 13:15: PT 19.7 H, INR 1.7, APTT 36.5 H 06/13/19 13:15: Sodium 138, Potassium 3.9, Chloride 104, Carbon Dioxide 25.0, Anion Gap 9, BUN 42 H, Creatinine 1.08 H, Estim Creat Clear Calc 47.83, Est GFR (MDRD) Af Amer 67, Est GFR (MDRD) Non-Af 55 L, BUN/Creatinine Ratio 38.9 H, Glucose 112 H, Calcium 8.5, Total Bilirubin 0.20, AST 88 H, ALT 47, Alkaline Phosphatase 182 H, Troponin I 0.041, Total Protein 7.8, Albumin 1.6 L, Globulin 6.2 H, Albumin/Globulin Ratio 0.3 L 06/13/19 13:15: Lactic Acid 2.1 H* 06/13/19 13:15: B-Natriuretic Peptide Pending 06/13/19 14:25: Specimen Type ART, Sample Site R Radial, pH 7.31 L, Bicarbonate Actual 24.1, POC Total CO2 26, Base Excess -2, O2 Saturation 100 H, O2 % 100, ABG pCO2 48.0 H, ABG pO2 190 H, Justo Test POS, Respiration Rate 400, O2 Delivery Device Vent, Vent Mode A-C, Tidal Volume 5, POC PEEP 15, Blood Gas Notified Whom ED MD, Blood Gas Notified Time 1425 06/13/19 14:47: Urine Color Yellow, Urine Clarity Cloudy, Urine pH 5.0, Ur Specific [place] 1.020, Urine Protein 30 H, Urine Glucose (UA) Normal, Urine Ketones 5 H, Urine Occult Blood 10 H, Urine Nitrite Negative, Urine Bilirubin 6 H, Urine Urobilinogen Normal, Ur Leukocyte Esterase 500 H, Urine RBC 0 SEEN, Urine WBC 25-50 SEEN, Ur Squamous Epith Cells 0-5 SEEN, Calcium Oxalate Crystal RARE, Urine Bacteria 1+, Coarse Granular Casts 10-25 SEEN, Urine Mucus 0 SEEN, Urine Yeast 2+ Current Medications Acetaminophen (Tylenol) 650 mg RECTAL Q4H PRN PRN PRN Reason: Pain Score 1-10/Temp > 100.7 F Amiodarone HCl (Cordarone) 400 mg GT DAILY [facility] Ascorbic Acid (Vitamin C) 500 mg GT BIDCM [facility] Heparin Sodium (Porcine) (Heparin Na) 5,000 unit SC Q8 [facility] Fentanyl () 100 mls @ 5 mls/hr IV UD [facility]; Protocol Last Titration: 06/13/19 16:10 Dose: 75 mcg/hr, 7.5 mls/hr Documented by: Norepinephrine Bitartrate 8 mg (/ Sodium Chloride) 250 mls @ 9.375 mls/hr CONT INF .[id number] [facility]; Protocol Last Titration: 06/13/19 15:42 Dose: 5 mcg/min, 9.4 mls/hr Documented by: Sodium Chloride () 1,000 mls @ 50 mls/hr IV .Q20H [facility] Stop: 06/14/19 13:13 Piperacillin Sod/Tazobactam (Sod 3.375 gm/ Sodium Chloride) 50 mls @ 12.5 mls/hr IV Q8 [facility] Vancomycin IV Pharmacy to Dose (1 ea/ Sodium Chloride) 500 mls @ 250 mls/hr IV X1 PRN; Protocol PRN Reason: Rx to Dose Piperacillin Sod/Tazobactam Sod (Zosyn) 3.375 gm in 50 mls @ 100 mls/hr IV X1 ONE Stop: 06/13/19 17:59 Lactobacillus Acidophilus (Acidophilus) 1 tablet GT DAILY [facility] Multivit/Ca Carb/B Cmplx/FA/Prenat (Nephrocaps, Renaphro) capsule GT DAILYCM [facility] Zinc Sulfate (Zinc Sulfate) 220 mg GT BIDCM [facility] Clinical Impression(s) from Imaging Studies Chest X-Ray 06/13/19 14:30 IMPRESSION: Infiltrates in the right lung as well as in the left mid lung. Follow-up is recommended. The tip of the endotracheal tube is at 4 cm proximal to the garret. Electronically Signed: Steve Fierro, at 14:55 EDT , Service support , Hip/Pelvis X-Ray 06/13/19 14:30 IMPRESSION: Degenerative changes of both hips as well as the sacroiliac joints. Electronically Signed: Steve Fierro, at 14:55 EDT , Service support , KUB X-Ray 06/13/19 14:30 IMPRESSION: The tip of the orogastric tube is seen in the distal stomach/pyloric region. Electronically Signed: Steve Fierro, at 14:53 EDT , Service support , Assessment/Plan Active and Suspected Problems Suspected SARS (Acute) Suspected SARS (Acute) Severe sepsis (Acute) Acute respiratory failure with hypoxia and hypercapnia (Acute) Bilateral pneumonia (Acute) Infection due to [place] coronavirus (Acute) RECOMMENDATIONS: 1. Continue broad-spectrum antibiotics 2. High PEEP, low tidal volume ventilation strategy 3. Panculture including tissue culture 4. Consider PICC line for long-term antibiotics 5. Wean oxygen as tolerated IMPRESSIONS: 1. Acute hypoxic respiratory failure secondary to ARDS secondary to COVID 19 Patient has been confirmed from outside testing to have COVID 19. Patient has had a chest x-ray with bilateral infiltrates. Low clinical suspicion for CHF at this time, but BNP is pending. Will attempt a high PEEP, low tidal volume ventilation strategy. Patient should also be minimized on fluid intake. Propofol can be added for sedation for vent synchrony if necessary. Hold on Plaquenil and azithromycin for now. Patient does have a complicating bacterial infection. 2. Severe sepsis secondary to probable UTI versus perirectal abscess Patient has grown E. coli in the past. Recommend panculture with empiric antibiotics. Patient should be seen by the wound nurse. Cannot exclude the need for debridement once patient's condition stabilizes. Patient with low albumin at this time indicating poor healing reserve. 3. Acute kidney injury Elevated creatinine with granular casts noted on urinalysis. This would be consistent with ATN. Clinical suspicion for multifactorial etiology including hypoxia, hypotension and sepsis. Continue to support the blood pressure. No indication for renal replacement therapy at this time. 4. Type 2 diabetes mellitus/hypertension/schizoaffective disorder/morbid obesity/debility Complicates care, management, recovery and prognosis. Likely initiate tube feeds tomorrow. We will hold baseline blood pressure medications. Likely reinitiate psychiatric medications tomorrow. Poor prognosis given need for intubation with COVID 19 and secondary process of perirectal abscess, in addition to baseline comorbidities. Patient is a DNR Comfort Care arrest with intubation TIME: 45 minutes critical care time spent addressing patient's acute hypoxic respiratory failure, severe sepsis, acute kidney injury, review of all data and collaboration with care team (3:30 PM to 5:40 PM) 9xxxx: [id number] Critical care first hour
[2019-06-13 17:28] LABS: Reflex Lactate? Y
[2019-06-13 17:43] LABS: BNP,B-Type NATRIURETIC PEPTIDE 298.2 pg/mL (0-100)
[2019-06-13] MEDS: 0.9% Normal Saline 1,000 ML 50 ML IV (18:28)
[2019-06-13 19:18] LABS: Lactic Acid 1.8 mmol/L (0.4-1.9)
--- NOTE | 2019-06-13 19:53 | PCM.RX.CS ---
Consult Pharmacy has been consulted to manage selected antiobiotic: Vancomycin Type of Consult: New start Suspected Infection: Sepsis Prior Doses of Antibiotics Received/Current Regimen: NONE Labs: Sodium 138 mmol/L (136-145) 06/13/19 13:15 Potassium 3.9 mmol/L (3.5-5.1) 06/13/19 13:15 Chloride 104 mmol/L (98-107) 06/13/19 13:15 Carbon Dioxide 25.0 mmol/L (21.0-32.0) 06/13/19 13:15 Anion Gap 9 (5-15) 06/13/19 13:15 BUN 42 mg/dL (7-18) H 06/13/19 13:15 Creatinine 1.08 mg/dL (0.55-1.02) H 06/13/19 13:15 Est GFR (MDRD) Af Amer 67 mL/min (>60) 06/13/19 13:15 Est GFR (MDRD) Non-Af 55 mL/min (>60) L 06/13/19 13:15 BUN/Creatinine Ratio 38.9 RATIO (10-20) H 06/13/19 13:15 Glucose 112 mg/dL (74-106) H 06/13/19 13:15 Weight used for dosin kg Estimated Creatinine Clearance: 93 ML/MIN Goal Trough: 15-20 mcg/mL Pharmacy Plan for Drug Dosing: PLAN/RECOMMENDATIONS 1. Vancomycin initial dose 1500mg IV x1 ordered and administered 06/13/19 @1905 2. Vancomycin 2000mg IV Q12hrs to start 06/14/19 @0700 3. Trough scheduled prior to 4th total dose per protocol 06/15/19 @0630 4. Pharmacy Service will continue to monitor and adjust dosing as required.
[2019-06-13] MEDS: Acetaminophen 650 MG Suppository RECTAL (20:22)
[2019-06-13] MEDS: Chlorhexidine 15 ML PO (22:59)
[2019-06-13] MEDS: Heparin Injection (Vial) 5,000 UNIT/ML VIAL 5000 UNIT SC (22:59)
[2019-06-14] VITALS (34 sets, daily range): BP systolic 100–150; BP diastolic 49–79; PULSE 69–115; RESP 12–27; TEMP 37.5–39; O2SAT 88–95; BMI 39.4
[2019-06-14] MEDS: fentaNYL drip 100 ML 7.5 MCG IV ×2 (00:47→14:10)
[2019-06-14] MEDS: CHLORHEXIDINE GLUC 2% CLOTH 1 EACH TOWELETTE TOPICAL (04:34)
[2019-06-14 04:52] LABS: Absolute Lymphocyte Count 1.26 X10^3/uL (0.83-4.51); Absolute Neutrophil Count 9.7 X10^3/uL (2.0-7.7); Basophil# 0.02 X10^3/uL; Basophil% 0.2 % (0-1); Eosinophil# 0.04 X10^3/uL; Eosinophils% 0.4 % (0-5); Hemoglobin 10.2 g/dL (12.0-15.0); Lymphocyte # 1.26 X10^3/ul (4.0); Lymphocyte % 11.1 % (19-41); Mean Corp Hgb Conc 30.9 g/dL (32-36); Mean Corpuscular Hgb 27.3 pg (27.0-32.0); Mean Corpuscular Volume 88.5 fL (81-99); Mean Platelet Vol. 10.9 fl (6.2-12.0); Monocyte# 0.24 X10^3/uL; Monocyte% 2.1 % (0-10); NRBC Flagged by Analyzer 0 % (0-5); Neutrophil # 9.65 X10^3/uL (2.7-7.7); Neutrophil % 85.1 % (47-70); Platelet Count 225 K/mm3 (150-450); RBC Distribution Width CV 16.8 % (11.6-14.6); RBC Distribution Width SD 54.3 fl (35.1-43.9); Red Blood Count 3.73 M/mm3 (4.2-5.4); White Blood Count 11.3 K/mm3 (4.4-11.0)
[2019-06-14 05:21] LABS: ALB/GLOB Ratio 0.3 RATIO (0.9-2.4); AST(SGOT) 71 U/L (15-37); Alanine Aminotransfer ALT/SGPT 39 U/L (13-56); Albumin, Serum 1.5 g/dL (3.2-5.0); Alkaline Phosphatase 186 U/L (45-117); Anion Gap 7 (5-15); BUN 46 mg/dL (7-18); BUN/Creat Ratio 49.8 RATIO (10-20); Calcium,Total 8.2 mg/dL (8.5-10.1); Chloride 111 mmol/L (98-107); Creatinine, Serum 0.92 mg/dL (0.55-1.02); EST Glomerular Filtration Rate 66 mL/min (>60); Est Glom Filt Rate - Afr Amer 80 mL/min (>60); Estimated Creatinine Clearance 56.15 ml/min; Globulin 5.8 g/dL (2.2-4.2); Glucose 90 mg/dL (74-106); Protein, Total 7.3 g/dL (6.4-8.2); Sodium Level 141 mmol/L (136-145)
[2019-06-14] MEDS: Heparin Injection (Vial) 5,000 UNIT/ML VIAL 5000 UNIT SC ×3 (06:38→21:49)
[2019-06-14] MEDS: Albuterol 2.5 MG/3 ML VIAL.NEB. INHALATION (07:10)
--- NOTE | 2019-06-14 08:28 | NT.THERAPY_ITS ---
Nutrition Therapy Report - History Nutrition Services has been consulted to:: Manage enteral nutrition Current diet / nutrition support order:: NPO - Anthropometric Measurements Height:: 5 ft 4 in Weight:: 104.2 kg Body Mass Index (BMI):: 39.4 - Relevant Labs Relevant Labs:: WBC 11.3 K/mm3 (4.4-11.0) H 06/14/19 04:30 RBC 3.73 M/mm3 (4.2-5.4) L 06/14/19 04:30 Hgb 10.2 g/dL (12.0-15.0) L 06/14/19 04:30 Hct 33.0 % (37-47) L 06/14/19 04:30 MCH 26.5 pg (27.0-32.0) L 06/13/19 13:15 MCHC 30.9 g/dL (32-36) L 06/14/19 04:30 RDW Std Deviation 54.3 fl (35.1-43.9) H 06/14/19 04:30 RDW Coeff of Bassam 16.8 % (11.6-14.6) H 06/14/19 04:30 Immature Gran % (Auto) 1.100 % (0.0-0.9) H 06/14/19 04:30 Neut % (Auto) 85.1 % (47-70) H 06/14/19 04:30 Lymph % (Auto) 11.1 % (19-41) L 06/14/19 04:30 Absolute Neuts (auto) 9.7 X10^3/uL (2.0-7.7) H 06/14/19 04:30 PT 19.7 SECONDS (11.7-14.9) H 06/13/19 13:15 APTT 36.5 Seconds (24.1-36.2) H 06/13/19 13:15 Chloride 111 mmol/L (98-107) H 06/14/19 04:30 BUN 46 mg/dL (7-18) H 06/14/19 04:30 Creatinine 1.08 mg/dL (0.55-1.02) H 06/13/19 13:15 Est GFR (MDRD) Non-Af 55 mL/min (>60) L 06/13/19 13:15 BUN/Creatinine Ratio 49.8 RATIO (10-20) H 06/14/19 04:30 Glucose 112 mg/dL (74-106) H 06/13/19 13:15 Lactic Acid 2.1 mmol/L (0.4-1.9) H* 06/13/19 13:15 Calcium 8.2 mg/dL (8.5-10.1) L 06/14/19 04:30 AST 71 U/L (15-37) H 06/14/19 04:30 Alkaline Phosphatase 186 U/L (45-117) H 06/14/19 04:30 B-Natriuretic Peptide 298.2 pg/mL (0-100) H 06/13/19 13:15 Albumin 1.5 g/dL (3.2-5.0) L 06/14/19 04:30 Globulin 5.8 g/dL (2.2-4.2) H 06/14/19 04:30 Albumin/Globulin Ratio 0.3 RATIO (0.9-2.4) L 06/14/19 04:30 - Assessment Food / Nutrition-Related History:: Unable to talk to pt d/t sedated and on vent. Currently pt is NPO - has OG in place. UBW: 104.326 kg - per EMR 03/25/19 wt 106.594 kg. Has PI to coccyx, groin and pannus. Pt from [facility] and noted to be w/c bound. [ End ] - Nutrition Diagnosis Problem / Etiology / Signs & Symptoms (PES):: Pt with increased nutrition needs r/t resp failure and skin status. Est nutritional needs per ASPEN guidelines for critically obese pts (22-25 nuris/kg IBW and 2 gm pro/kg IBW). Pt w/ increased nutritional needs r/t resp failure and skin status AEB NPO and PI to coccyx, groin and pannus. [ End ] Evidence of Malnutrition Exists:: No - Nutrition Intervention Nutrition Prescription:: [id number] nuris and 100-110 gm pro/day - Food / Nutrient Delivery Interventions Summary of nutrition intervention:: Rec nutrition support while pt on vent via OG - rec Vital AF 1.2 at goal rate 55 cc/hr w/ 85 cc H2O flush every 4 hours to provide ~ 1584 nuris/ 99 gm pro/ 1580 cc free H2O w/ flush. Would start tf at 15 cc/hr and increase by 20 cc/hr every 6-8 hrs as pt tolerates until goal rate achieved. When medically able for po diet, rec ELVIE to Cho Control Cardiac - consistency per [employer]GER. For skin status, rec Thor bid mixed with 8 oz water via OG while NPO or by mouth when po diet resumes. [ End ] Nutrition support ordered as / adjusted to:: rec Vital AF 1.2 at goal rate 55 cc/hr w/ 85 cc H2O flush every 4 hours to provide ~ 1584 nuris/ 99 gm pro/ 1580 cc free H2O w/ flush. Would start tf at 15 cc/hr and increase by 20 cc/hr every 6- 8 hrs as pt tolerates until goal rate achieved. Nutrition education provided?: No - MNT Monitoring Further MNT monitoring and evaluation required?: Yes MNT Follow-up in:: 3-5 days - Please call RD/LD at x [phone] if questions
--- NOTE | 2019-06-14 08:29 | PCM.PROGNOTE ---
Patient Problems: Active and Suspected Problems Severe sepsis (Acute) Acute respiratory failure with hypoxia and hypercapnia (Acute) Bilateral pneumonia (Acute) Infection due to [place] coronavirus (Acute) Subjective: Chief complaint: Follow-up after admission for severe sepsis, bilateral pneumonia, suspected COVID-19, acute hypoxic respiratory failure, UTI, infected sacral decubitus ulcers, perineal and lower abdomen hydradenitis with probable perirectal abscess. Patient seen and examined. No acute events overnight. She is sedated, on mechanical ventilation. She is having spikes of low-grade fever, tachycardia, blood pressure is maintained, on mechanical ventilation. Nursing staff reported that patient having significant odor from the decubitus ulcers. - Physical Exam Vitals/I&O's: Vital Signs Temp Pulse Resp BP Pulse Ox 99.8 F H 89 17 115/49 L 95 06/14/19 07:00 06/14/19 07:05 06/14/19 07:00 06/14/19 07:00 06/14/19 07:00 Oxygen Flow Rate (L/min) 15 Oxygen Delivery Method Mechanical Ventilator Weight: 229 lb 11.547 oz Body Mass Index (BMI) 39.9 Intake and Output for Last 24 Hours 06/12/19 06/13/19 06/14/19 23:59 23:59 23:59 Intake Total 2688.475 / 2972.645 377.71 / 377.71 Output Total 650 / 690 40 / 40 Balance 2038.475 / 2282.645 337.71 / 337.71 General: - - Intubated, on sedation. Short of breath. HEENT: Atraumatic, PERRLA, Normocephalic Oral: Moist Mucosa, No Gingival or Mucosal Lesions/ Ulcerations Neck: Supple, No JVD, Negative Carotid Bruits, Trachea Midline, Thyroid Normal Size and Texture Lungs: No wheeze, No rales, Diminished, Rhonchi, - - Decreased breath sounds bilateral, scattered rhonchi. Cardiovascular: Regular rate, Regular Rhythm, Normal S1, Normal S2, PMI Normal, Tachycardic Abdomen: Bowel Sounds Present, Soft, Non Tender, Non-Distended, Obese Extremities: No clubbing, No cyanosis, Edema - Trace edema. Skin: No rashes, Ulcer/ Wound Lymphatic: No Cervical, Supraclavicular, or Inguinal Adenopathy Neurological: - - Unable to assess, patient is sedated. Psych/Mental Status: - - Unable to assess, patient is sedated. Laboratory Results 06/13/19 13:15: WBC 11.1 H, RBC 4.12 L, Hgb 10.9 L, Hct 35.6 L, MCV 86.4, MCH 26.5 L, MCHC 30.6 L, RDW Std Deviation 51.6 H, RDW Coeff of Bassam 16.4 H, Plt Count 242, MPV 11.1, Immature Gran % (Auto) 0.800, Neut % (Auto) 87.4 H, Lymph % (Auto) 10.2 L, Holmes % (Auto) 1.2, Eos % (Auto) 0.3, Baso % (Auto) 0.1, Absolute Neuts (auto) 9.7 H, Absolute Lymphs (auto) 1.13, Nucleated RBC % 0, Differential Comment SCANNED, Reactive Lymphocytes 1+ 06/13/19 13:15: PT 19.7 H, INR 1.7, APTT 36.5 H 06/13/19 13:15: Sodium 138, Potassium 3.9, Chloride 104, Carbon Dioxide 25.0, Anion Gap 9, BUN 42 H, Creatinine 1.08 H, Estim Creat Clear Calc 47.83, Est GFR (MDRD) Af Amer 67, Est GFR (MDRD) Non-Af 55 L, BUN/Creatinine Ratio 38.9 H, Glucose 112 H, Calcium 8.5, Total Bilirubin 0.20, AST 88 H, ALT 47, Alkaline Phosphatase 182 H, Troponin I 0.041, Total Protein 7.8, Albumin 1.6 L, Globulin 6.2 H, Albumin/Globulin Ratio 0.3 L 06/13/19 13:15: Lactic Acid 2.1 H* 06/13/19 13:15: B-Natriuretic Peptide 298.2 H 06/13/19 14:25: Specimen Type ART, Sample Site R Radial, pH 7.31 L, Bicarbonate Actual 24.1, POC Total CO2 26, Base Excess -2, O2 Saturation 100 H, O2 % 100, ABG pCO2 48.0 H, ABG pO2 190 H, Justo Test POS, Respiration Rate 400, O2 Delivery Device Vent, Vent Mode A-C, Tidal Volume 5, POC PEEP 15, Blood Gas Notified Whom ED , Blood Gas Notified Time 1425 06/13/19 14:47: Urine Color Yellow, Urine Clarity Cloudy, Urine pH 5.0, Ur Specific [place] 1.020, Urine Protein 30 H, Urine Glucose (UA) Normal, Urine Ketones 5 H, Urine Occult Blood 10 H, Urine Nitrite Negative, Urine Bilirubin 6 H, Urine Urobilinogen Normal, Ur Leukocyte Esterase 500 H, Urine RBC 0 SEEN, Urine WBC 25-50 SEEN, Ur Squamous Epith Cells 0-5 SEEN, Calcium Oxalate Crystal RARE, Urine Bacteria 1+, Coarse Granular Casts 10-25 SEEN, Urine Mucus 0 SEEN, Urine Yeast 2+ 06/13/19 17:28: Lactic Acid 1.8 06/14/19 04:30: WBC 11.3 H, RBC 3.73 L, Hgb 10.2 L, Hct 33.0 L, MCV 88.5, MCH 27.3, MCHC 30.9 L, RDW Std Deviation 54.3 H, RDW Coeff of Bassam 16.8 H, Plt Count 225, MPV 10.9, Immature Gran % (Auto) 1.100 H, Neut % (Auto) 85.1 H, Lymph % (Auto) 11.1 L, Holmes % (Auto) 2.1, Eos % (Auto) 0.4, Baso % (Auto) 0.2, Absolute Neuts (auto) 9.7 H, Absolute Lymphs (auto) 1.26, Nucleated RBC % 0 06/14/19 04:30: Sodium 141, Potassium 4.0, Chloride 111 H, Carbon Dioxide 23.0, Anion Gap 7, BUN 46 H, Creatinine 0.92, Estim Creat Clear Calc 56.15, Est GFR (MDRD) Af Amer 80, Est GFR (MDRD) Non-Af 66, BUN/Creatinine Ratio 49.8 H, Glucose 90, Calcium 8.2 L, Total Bilirubin 0.20, AST 71 H, ALT 39, Alkaline Phosphatase 186 H, Total Protein 7.3, Albumin 1.5 L, Globulin 5.8 H, Albumin/Globulin Ratio 0.3 L Clinical Impression(s) from Imaging Studies Chest X-Ray 06/13/19 14:30 IMPRESSION: Infiltrates in the right lung as well as in the left mid lung. Follow-up is recommended. The tip of the endotracheal tube is at 4 cm proximal to the garret. Electronically Signed: Steve Sri, at 14:55 EDT , Service support , Hip/Pelvis X-Ray 06/13/19 14:30 IMPRESSION: Degenerative changes of both hips as well as the sacroiliac joints. Electronically Signed: Steve Sri, at 14:55 EDT , Service support , KUB X-Ray 06/13/19 14:30 IMPRESSION: The tip of the orogastric tube is seen in the distal stomach/pyloric region. Electronically Signed: Steve Sri, at 14:53 EDT , Service support , Current Medications Acetaminophen (Tylenol Liquid) 650 mg GT Q4H PRN PRN PRN Reason: TEMP > 100.5 F Amiodarone HCl (Cordarone) 400 mg GT DAILY [facility] Ascorbic Acid (Vitamin C) 500 mg GT BIDCM [facility] Last Admin: 06/13/19 18:29 Dose: Not Given Documented by: Chlorhexidine Gluconate () 15 ml PO BID [facility] Last Admin: 06/13/19 22:59 Dose: 15 ml Documented by: Chlorhexidine Gluconate () 1 each TOPICAL DAILY [facility] Last Admin: 06/14/19 04:34 Dose: 1 each Documented by: Gabapentin (Neurontin) 200 mg GT TIDCM [facility] Heparin Sodium (Porcine) (Heparin Na) 5,000 unit SC Q8 [facility] Last Admin: 06/14/19 06:38 Dose: 5,000 unit Documented by: Fentanyl () 100 mls @ 5 mls/hr IV UD [facility]; Protocol Last Titration: 06/14/19 07:00 Dose: 75 mcg/hr, 7.5 mls/hr Documented by: Norepinephrine Bitartrate 8 mg (/ Sodium Chloride) 250 mls @ 9.375 mls/hr CONT INF .[id number] [facility]; Protocol Last Titration: 06/14/19 07:00 Dose: 0 mcg/min, 0 mls/hr Documented by: Sodium Chloride () 1,000 mls @ 50 mls/hr IV .Q20H [facility] Stop: 06/14/19 13:13 Last Infusion: 06/14/19 00:00 Dose: 50 mls/hr Documented by: Piperacillin Sod/Tazobactam (Sod 3.375 gm/ Sodium Chloride) 50 mls @ 12.5 mls/hr IV Q8 [facility] Last Admin: 06/14/19 06:46 Dose: 12.5 mls/hr Documented by: Vancomycin IV Pharmacy to Dose (1 ea/ Sodium Chloride) 500 mls @ 250 mls/hr IV PRN PRN; Protocol PRN Reason: Rx to Dose Vancomycin HCl 2,000 mg/ (Sodium Chloride) 540 mls @ 250 mls/hr IV Q12H [facility] Last Admin: 06/14/19 06:46 Dose: 250 mls/hr Documented by: Lactobacillus Acidophilus (Acidophilus) 1 tablet GT DAILY [facility] Loxapine Succinate (Loxapine) 25 mg NG QHS [facility] Multivit/Ca Carb/B Cmplx/FA/Prenat (Nephrocaps, Renaphro) 1 capsule GT DAILYCM [facility] Sodium Chloride () 10 - 40 ml IV UD PRN PRN Reason: SALINE FLUSH Zinc Sulfate (Zinc Sulfate) 220 mg GT BIDCM [facility] Last Admin: 06/13/19 18:29 Dose: Not Given Documented by: Medical Necessity - Tobacco Use Smoking Status: Smoker, status unknown Tobacco Use: Non-smoker Assessment/Plan All Active Problems Perirectal abscess (Acute) Severe sepsis (Acute) Acute respiratory failure with hypoxia and hypercapnia (Acute) Bilateral pneumonia (Acute) Infection due to [facility] coronavirus (Acute) This is a 59 years old female patient presented to the emergency room because of shortness of breath and cough, was diagnosed with pneumonia at the longterm and started on Levaquin on June 06, 2019 and she tested positive for COVID-19, admitted for acute hypoxic respiratory failure secondary to ARDS due to COVID-19 and also found to have severe sepsis, acute kidney injury, multiple sacral decubitus ulcers which looked infected as well as severe hidradenitis of the lower abdominal and perineal region. #1 acute hypoxic respiratory failure/ARDS/bilateral viral pneumonia secondary to COVID-19: She is on IV vancomycin and Zosyn. She tested positive for COVID-19. She is on mechanical ventilation. Chest x-ray revealed right lung fluffy infiltrate involving the whole right lung as well as mid left lung. She has been off IV Levophed. Routine blood work reviewed. Blood, urine and wound cultures are pending. Critical care on the case. Plan to continue same treatment, start tube feeds. #2 severe sepsis: Attributed to viral pneumonia as well as infected multiple sacral decubitus ulcers and severe hidradenitis. Lactic acid is down from 2.1 down to 1.8. She is on IV vancomycin and Zosyn. Blood, urine and wound cultures are pending. Plan as above. #3 infected multiple sacral decubitus ulcers/severe hidradenitis of the lower abdominal wall and perineal region/probable perirectal abscess: I could not examine the area because patient is intubated and sedated. Nursing staff reported very foul-smelling of those wounds and ulcers. She is on IV vancomycin and Zosyn as above, cultures are pending. Wound care nurse consulted. #4 mild acute kidney injury: Likely due to ATN secondary to severe sepsis and infection. Patient received small amount of IV fluids, kidney function is improving. #5 type 2 diabetes mellitus: Under control. Patient is not on any antidiabetic medications. Plan to monitor. #6 hypertension: She has been off Levophed drip. Blood pressure is maintained. Apparently, she is not on any antihypertensive medications at the longterm. #7 chronic atrial fibrillation: Rate has been around 100-110, continue amiodarone through the G-tube with tube feeds. She is not on anticoagulation. #8 bipolar disorder/schizophrenia/PTSD: Resume loxapine, keep holding clonazepam. #9 DVT prophylaxis: Subcu heparin. This note was generated with [employer] dictation software. It may contain incorrect words, spelling, and punctuation that were not noted in checking the note before signing. Inpatient E&M: [id number] [facility] L3
--- NOTE | 2019-06-14 08:44 | PN_ITS ---
Subjective: Patient did okay overnight. Patient was able to be taken off of Levophed last evening. Patient is more responsive and able to follow commands this morning. Nursing continues to report significant odor and discharge from decubitus ulcers. General: Alert, Cooperative, - - Good vent synchrony. Morbidly obese. HEENT: Atraumatic, PERRLA, EOMI, Normocephalic, - - No scleral icterus or injection noted Oral: Moist Mucosa, No Gingival or Mucosal Lesions/ Ulcerations Neck: Supple, No JVD, No Nodes, Trachea Midline Lungs: No rhonchi, No rales, Diminished, Wheezes - Improved after aerosol Cardiovascular: Normal S1, Normal S2, No murmurs, No rub noted, No Gallop, Tachycardic Abdomen: Bowel Sounds Present, Soft, Non Tender, Non-Distended, Obese Extremities: No cyanosis, Capillary Refill Less than 3 Seconds, Edema Skin: - - No significant change compared to previous Musculoskeletal: No Tenderness to Palpation of Joints or Extremities Lymphatic: No Cervical, Supraclavicular, or Inguinal Adenopathy Neurological: Cranial nerves II-XII grossly intact, Neuro grossly intact Psych/Mental Status: Appropriate, Flat Affect Vital Signs Temp Pulse Resp BP Pulse Ox 37.7 C H 113 H 23 H 115/49 L 93 06/14/19 07:00 06/14/19 07:10 06/14/19 07:10 06/14/19 07:00 06/14/19 07:10 Oxygen Flow Rate (L/min) 15 Oxygen Delivery Method Mechanical Ventilator Weight: 104.2 kg Body Mass Index (BMI) 39.4 Intake and Output for Last 24 Hours 06/12/19 06/13/19 06/14/19 23:59 23:59 23:59 Intake Total 2688.475 / 2972.645 377.71 / 377.71 Output Total 650 / 690 40 / 40 Balance 2038.475 / 2282.645 337.71 / 337.71 Labs (Last 48 Hours) 06/13/19 06/13/19 06/13/19 13:15 13:15 13:15 WBC 11.1 H RBC 4.12 L Hgb 10.9 L Hct 35.6 L MCV 86.4 MCH 26.5 L MCHC 30.6 L RDW Std Deviation 51.6 H RDW Coeff of Bassam 16.4 H Plt Count 242 MPV 11.1 Immature Gran % (Auto) 0.800 Neut % (Auto) 87.4 H Lymph % (Auto) 10.2 L [place] % (Auto) 1.2 Eos % (Auto) 0.3 Baso % (Auto) 0.1 Absolute Neuts (auto) 9.7 H Absolute Lymphs (auto) 1.13 Nucleated RBC % 0 Differential Comment SCANNED Reactive Lymphocytes 1+ PT 19.7 H INR 1.7 APTT 36.5 H Specimen Type Sample Site pH Bicarbonate Actual POC Total CO2 Base Excess O2 Saturation O2 % ABG pCO2 ABG pO2 Justo Test Respiration Rate O2 Delivery Device Vent Mode Tidal Volume POC PEEP Blood Gas Notified Whom Blood Gas Notified Time Sodium 138 Potassium 3.9 Chloride 104 Carbon Dioxide 25.0 Anion Gap 9 BUN 42 H Creatinine 1.08 H Estim Creat Clear Calc 47.83 Est GFR (MDRD) Af Amer 67 Est GFR (MDRD) Non-Af 55 L BUN/Creatinine Ratio 38.9 H Glucose 112 H Lactic Acid Calcium 8.5 Total Bilirubin 0.20 AST 88 H ALT 47 Alkaline Phosphatase 182 H Troponin I 0.041 B-Natriuretic Peptide Total Protein 7.8 Albumin 1.6 L Globulin 6.2 H Albumin/Globulin Ratio 0.3 L Urine Color Urine Clarity Urine pH Ur Specific [place] Urine Protein Urine Glucose (UA) Urine Ketones Urine Occult Blood Urine Nitrite Urine Bilirubin Urine Urobilinogen Ur Leukocyte Esterase Urine RBC Urine WBC Ur Squamous Epith Cells Calcium Oxalate Crystal Urine Bacteria Coarse Granular Casts Urine Mucus Urine Yeast 06/13/19 06/13/19 06/13/19 13:15 13:15 14:25 WBC RBC Hgb Hct MCV MCH MCHC RDW Std Deviation RDW Coeff of Bassam Plt Count MPV Immature Gran % (Auto) Neut % (Auto) Lymph % (Auto) [place] % (Auto) Eos % (Auto) Baso % (Auto) Absolute Neuts (auto) Absolute Lymphs (auto) Nucleated RBC % Differential Comment Reactive Lymphocytes PT INR APTT Specimen Type ART Sample Site R Radial pH 7.31 L Bicarbonate Actual 24.1 POC Total CO2 26 Base Excess -2 O2 Saturation 100 H O2 % 100 ABG pCO2 48.0 H ABG pO2 190 H Justo Test POS Respiration Rate 400 O2 Delivery Device Vent Vent Mode A-C Tidal Volume 5 POC PEEP 15 Blood Gas Notified Whom ED Blood Gas Notified Time 1425 Sodium Potassium Chloride Carbon Dioxide Anion Gap BUN Creatinine Estim Creat Clear Calc Est GFR (MDRD) Af Amer Est GFR (MDRD) Non-Af BUN/Creatinine Ratio Glucose Lactic Acid 2.1 H* Calcium Total Bilirubin AST ALT Alkaline Phosphatase Troponin I B-Natriuretic Peptide 298.2 H Total Protein Albumin Globulin Albumin/Globulin Ratio Urine Color Urine Clarity Urine pH Ur Specific [place] Urine Protein Urine Glucose (UA) Urine Ketones Urine Occult Blood Urine Nitrite Urine Bilirubin Urine Urobilinogen Ur Leukocyte Esterase Urine RBC Urine WBC Ur Squamous Epith Cells Calcium Oxalate Crystal Urine Bacteria Coarse Granular Casts Urine Mucus Urine Yeast 06/13/19 06/13/19 06/14/19 14:47 17:28 04:30 WBC 11.3 H RBC 3.73 L Hgb 10.2 L Hct 33.0 L MCV 88.5 MCH 27.3 MCHC 30.9 L RDW Std Deviation 54.3 H RDW Coeff of Bassam 16.8 H Plt Count 225 MPV 10.9 Immature Gran % (Auto) 1.100 H Neut % (Auto) 85.1 H Lymph % (Auto) 11.1 L [place] % (Auto) 2.1 Eos % (Auto) 0.4 Baso % (Auto) 0.2 Absolute Neuts (auto) 9.7 H Absolute Lymphs (auto) 1.26 Nucleated RBC % 0 Differential Comment Reactive Lymphocytes PT INR APTT Specimen Type Sample Site pH Bicarbonate Actual POC Total CO2 Base Excess O2 Saturation O2 % ABG pCO2 ABG pO2 Justo Test Respiration Rate O2 Delivery Device Vent Mode Tidal Volume POC PEEP Blood Gas Notified Whom Blood Gas Notified Time Sodium Potassium Chloride Carbon Dioxide Anion Gap BUN Creatinine Estim Creat Clear Calc Est GFR (MDRD) Af Amer Est GFR (MDRD) Non-Af BUN/Creatinine Ratio Glucose Lactic Acid 1.8 Calcium Total Bilirubin AST ALT Alkaline Phosphatase Troponin I B-Natriuretic Peptide Total Protein Albumin Globulin Albumin/Globulin Ratio Urine Color Yellow Urine Clarity Cloudy Urine pH 5.0 Ur Specific [place] 1.020 Urine Protein 30 H Urine Glucose (UA) Normal Urine Ketones 5 H Urine Occult Blood 10 H Urine Nitrite Negative Urine Bilirubin 6 H Urine Urobilinogen Normal Ur Leukocyte Esterase 500 H Urine RBC 0 SEEN Urine WBC 25-50 SEEN Ur Squamous Epith Cells 0-5 SEEN Calcium Oxalate Crystal RARE Urine Bacteria 1+ Coarse Granular Casts 10-25 SEEN Urine Mucus 0 SEEN Urine Yeast 2+ 04/03/20 04:30 WBC RBC Hgb Hct MCV MCH MCHC RDW Std Deviation RDW Coeff of Bassam Plt Count MPV Immature Gran % (Auto) Neut % (Auto) Lymph % (Auto) [place] % (Auto) Eos % (Auto) Baso % (Auto) Absolute Neuts (auto) Absolute Lymphs (auto) Nucleated RBC % Differential Comment Reactive Lymphocytes PT INR APTT Specimen Type Sample Site pH Bicarbonate Actual POC Total CO2 Base Excess O2 Saturation O2 % ABG pCO2 ABG pO2 Justo Test Respiration Rate O2 Delivery Device Vent Mode Tidal Volume POC PEEP Blood Gas Notified Whom Blood Gas Notified Time Sodium 141 Potassium 4.0 Chloride 111 H Carbon Dioxide 23.0 Anion Gap 7 BUN 46 H Creatinine 0.92 Estim Creat Clear Calc 56.15 Est GFR (MDRD) Af Amer 80 Est GFR (MDRD) Non-Af 66 BUN/Creatinine Ratio 49.8 H Glucose 90 Lactic Acid Calcium 8.2 L Total Bilirubin 0.20 AST 71 H ALT 39 Alkaline Phosphatase 186 H Troponin I B-Natriuretic Peptide Total Protein 7.3 Albumin 1.5 L Globulin 5.8 H Albumin/Globulin Ratio 0.3 L Urine Color Urine Clarity Urine pH Ur Specific [place] Urine Protein Urine Glucose (UA) Urine Ketones Urine Occult Blood Urine Nitrite Urine Bilirubin Urine Urobilinogen Ur Leukocyte Esterase Urine RBC Urine WBC Ur Squamous Epith Cells Calcium Oxalate Crystal Urine Bacteria Coarse Granular Casts Urine Mucus Urine Yeast Clinical Impression(s) from Imaging Studies Chest X-Ray 06/13/19 14:30 IMPRESSION: Infiltrates in the right lung as well as in the left mid lung. Follow-up is recommended. The tip of the endotracheal tube is at 4 cm proximal to the garret. Electronically Signed: Steve Fierro, at 14:55 EDT , Service support , Hip/Pelvis X-Ray 06/13/19 14:30 IMPRESSION: Degenerative changes of both hips as well as the sacroiliac joints. Electronically Signed: Steve Fierro, at 14:55 EDT , Service support , KUB X-Ray 06/13/19 14:30 IMPRESSION: The tip of the orogastric tube is seen in the distal stomach/pyloric region. Electronically Signed: Steve Fierro, at 14:53 EDT , Service support , Medical Necessity - Tobacco Use Smoking Status: Smoker, status unknown Tobacco Use: Non-smoker Assessment/Plan All Active Problems Perirectal abscess (Acute) Severe sepsis (Acute) Acute respiratory failure with hypoxia and hypercapnia (Acute) Bilateral pneumonia (Acute) Infection due to [place] coronavirus (Acute) RECOMMENDATIONS: 1. Continue broad-spectrum antibiotics 2. High PEEP, low tidal volume ventilation strategy 3. Await panculture including tissue culture 4. Consider PICC line for long-term antibiotics if blood cultures negative 5. Wean oxygen as tolerated. Possible attempt to wean PEEP later today 6. Okay to initiate tube feeds 7. Reinitiate baseline psychiatric medications IMPRESSIONS: 1. Acute hypoxic respiratory failure secondary to ARDS secondary to COVID 19 Patient has been confirmed from outside testing to have COVID 19. Patient has had a chest x-ray with bilateral infiltrates. Low clinical suspicion for CHF at this time, but BNP is slightly elevated. Will attempt a high PEEP, low tidal volume ventilation strategy. Patient should also be minimized on fluid intake. Propofol can be added for sedation for vent synchrony if necessary. Hold on Plaquenil and azithromycin for now. Patient does have a complicating bacterial infection of perirectal abscess. 2. Severe sepsis secondary to probable UTI versus perirectal abscess Patient has grown E. coli in the past. Recommend panculture with empiric antibiotics. Patient should be seen by the wound nurse today. Cannot exclude the need for debridement if patient's condition stabilizes. Patient with low albumin at this time indicating poor healing reserve. 3. Acute kidney injury Improving. Elevated creatinine with granular casts noted on urinalysis. This would be consistent with ATN. Clinical suspicion for multifactorial etiology including hypoxia, hypotension and sepsis. Continue to support the blood pressure. No indication for renal replacement therapy at this time. 4. Type 2 diabetes mellitus/hypertension/schizoaffective disorder/morbid obesity/debility Complicates care, management, recovery and prognosis. Likely initiate tube feeds tomorrow. We will hold baseline blood pressure medications. Reinitiate psychiatric medications tomorrow. Poor prognosis given need for intubation with COVID 19 and secondary process of perirectal abscess, in addition to baseline comorbidities. Patient is a DNR Comfort Care arrest with intubation TIME: 35 minutes critical care time spent addressing patient's acute hypoxic respiratory failure, severe sepsis, acute kidney injury, review of all data and collaboration with care team (7 AM to 8:30 AM) [phone]: [id number] Critical care first hour
[2019-06-14] MEDS: Acetaminophen 650 MG/20 ML UDC GT ×2 (09:07→20:33)
[2019-06-14] MEDS: Ascorbic Acid 500 MG Tablet GT ×2 (09:07→17:08)
[2019-06-14] MEDS: Amiodarone 200 MG Tablet 400 MG GT (09:07)
[2019-06-14] MEDS: Gabapentin 100 MG Capsule 200 MG GT ×3 (09:08→17:08)
[2019-06-14] MEDS: Folic Acid/Vitamin B Comp W-C 1 Capsule 1 CAP GT (09:08)
--- NOTE | 2019-06-14 10:01 | CASEMGMT ---
Addendum entered by Yaneth Benitez 06/14/19 13:11: SW received call from pt's daughter Rosaline. Rosaline states that if all possible she would prefer for pt to return home at discharge. KAILASH updated Rosaline that the physician is thinking pt may need to have surgery on her wounds and may need alf IV antibiotics at discharge so going home may not be a safe option for pt pending what her medical needs will be. Rosaline states she completed application for Medicaid PASSPORT services and she is hoping to have an answer from Medicaid that pt is approved and pt will be able to get a RN and aides in the home. Rosaline states that if pt is approved for PASSPORT and she is able to get help in the home for pt, then she would want pt to return home. KAILASH again informed Rosaline that it is probably to soon to determine what all pt will need at discharge and that this worker can continue to work with Rosaline and figure out an appropriate safe discharge for pt. Rosaline states understanding. Rosaline states that she spoke with pt's RN earlier today and wanted to revoke pt's no CPR order. Rosaline states that if pt codes, she would want pt to receive CPR. KAILASH spoke with pt's RN who confirms that RN spoke with pt's daughter and knows about pt's daughter wishes for code states and physician has been updated. Original Note: Social Work Note SW participated in ICU rounds. Pt tested positive for COVID 19, may need surgery on wounds and may need termite technician IV antibiotics at discharge. Pt is currently intubated as well. KAILASH attempted to call pt's daughter Rosaline who is listed as person to notify to confirm discharge plans. No answer, KAILASH did leave voicemail with this worker's number for Rosaline to call. KAILASH placed a call to Yamilex at [facility] and updated her on above information. Yamilex states she will check with her administration regarding COVD 19 positive teset and pt may need to have negative result before being able to return to [facility]. KAILASH faxed updated clinicals to [facility]. Pt will need new pre-cert to return to [facility]. Plan: Likely return to [facility] pending pre-cert Yaneth Benitez VICE [employer]IDENT [employer], JUVENILE COUNSELOR
[2019-06-14] MEDS: Chlorhexidine 15 ML PO ×2 (10:43→21:49)
--- NOTE | 2019-06-14 14:13 | PCM.HP.ID ---
Reason for Consult: judy Consulted by: Dr. Ruth History of Present Illness: The patient is a 59 year old F [facility] resident, presented from [facility] with confusion, hypoxia, dyspnea. Recently started on levaquin last week for presumed pneumonia. COVID sent and came back (+). Sent to ED yesterday, intubated, admitted to icu on vasopressin, vanc, zosyn. Concern for ongoing pelvic wounds. Pt unable to provide history or ROS. - Medical History Past Medical History (Chronic Problems): Chronic Problems Schizophrenia (Chronic) Bipolar disorder (Chronic) Atrial fibrillation (Chronic) Hydradenitis (Chronic) Diabetes mellitus (Chronic) Hypertension (Chronic) Osteoarthritis (Chronic) Irritable bowel syndrome (Chronic) Morbid obesity (Chronic) Obstructive sleep apnea (Chronic) Post traumatic stress disorder (Chronic) Allergies/Adverse Reactions: Allergies diltiazem Allergy (Verified 06/13/19 15:55) Swelling aripiprazole [From Abilify] Adverse Reaction (Verified 06/13/19 15:55) Anaphylaxis doxepin Adverse Reaction (Verified 06/13/19 15:55) Other doxycycline Adverse Reaction (Verified 06/13/19 15:55) Other ibuprofen [From Motrin] Adverse Reaction (Verified 06/13/19 15:55) Nausea/Vom/Diarrhea naproxen [From Naprosyn] Adverse Reaction (Verified 06/13/19 15:55) Nausea/Vom/Diarrhea prednisone Adverse Reaction (Verified 06/13/19 15:55) Other made me real mean risperidone [From Risperdal] Adverse Reaction (Verified 06/13/19 15:55) Swelling Home Medications: Ambulatory Orders Medication Instructions Recorded Clonazepam 1 mg PO BID 02/21/19 Loxapine Succinate [Loxapine] 25 mg PO QHS 02/21/19 Amiodarone HCl 400 mg PO DAILY 03/25/19 Zinc Sulfate 220 mg PO BID #60 cap 05/03/19 Acetaminophen [Tylenol] 975 mg PO 4X/DAY 06/13/19 Albuterol Sulfate [Proair 2 puff INHALATION Q3H PRN 06/13/19 Respiclick] Ascorbic Acid [Vitamin C] 500 mg PO BIDCM 06/13/19 Folic Acid/Vitamin B Comp W-C 1 cap PO DAILYCM 06/13/19 [Nephrocaps, Renaphro] Gabapentin [Neurontin] 200 mg PO TID 06/13/19 Lactobacillus Acidophilus 1 cap PO DAILY 06/13/19 [Acidophilus] Levofloxacin [Levaquin] 500 mg PO DAILY 06/13/19 Metoprolol Tartrate 25 mg PO BID 06/13/19 Smz/Tmp Ds [Bactrim Ds] 1 tab PO DAILY 06/13/19 - Social History SMOKING STATUS:: Unknow if ever smoked Vital Signs Temp Pulse Resp BP Pulse Ox 100.1 F H 112 H 19 H 113/56 L 91 06/14/19 14:00 06/14/19 14:00 06/14/19 14:00 06/14/19 14:00 06/14/19 14:00 Oxygen Flow Rate (L/min) 15 Oxygen Delivery Method Mechanical Ventilator Weight: 104.2 kg Body Mass Index (BMI) 39.4 Microbiology Past 72 Hours 06/13/19 18:00 Gram Stain - Final Wound - Abdominal 06/13/19 18:00 Gram Stain - Final Wound - Buttock 06/13/19 14:47 Urine Culture - Preliminary Urine Catheter - Siddiqi Presumptive C albicans Laboratory Tests Past 24 Hrs 06/13/19 06/13/19 06/13/19 13:15 13:15 13:15 WBC RBC Hgb Hct MCV MCH MCHC RDW Std Deviation RDW Coeff of Bassam Plt Count MPV Immature Gran % (Auto) Neut % (Auto) Lymph % (Auto) [place] % (Auto) Eos % (Auto) Baso % (Auto) Absolute Neuts (auto) Absolute Lymphs (auto) Nucleated RBC % Differential Comment SCANNED Reactive Lymphocytes 1+ Specimen Type Sample Site pH Bicarbonate Actual POC Total CO2 Base Excess O2 Saturation O2 % ABG pCO2 ABG pO2 Justo Test Respiration Rate O2 Delivery Device Vent Mode Tidal Volume POC PEEP Blood Gas Notified Whom Blood Gas Notified Time Sodium Potassium Chloride Carbon Dioxide Anion Gap BUN Creatinine Estim Creat Clear Calc Est GFR (MDRD) Af Amer Est GFR (MDRD) Non-Af BUN/Creatinine Ratio Glucose Lactic Acid 2.1 H* Calcium Total Bilirubin AST ALT Alkaline Phosphatase B-Natriuretic Peptide 298.2 H Total Protein Albumin Globulin Albumin/Globulin Ratio Urine Color Urine Clarity Urine pH Ur Specific [place] Urine Protein Urine Glucose (UA) Urine Ketones Urine Occult Blood Urine Nitrite Urine Bilirubin Urine Urobilinogen Ur Leukocyte Esterase Urine RBC Urine WBC Ur Squamous Epith Cells Calcium Oxalate Crystal Urine Bacteria Coarse Granular Casts Urine Mucus Urine Yeast 06/13/19 06/13/19 06/13/19 14:25 14:47 17:28 WBC RBC Hgb Hct MCV MCH MCHC RDW Std Deviation RDW Coeff of Bassam Plt Count MPV Immature Gran % (Auto) Neut % (Auto) Lymph % (Auto) [place] % (Auto) Eos % (Auto) Baso % (Auto) Absolute Neuts (auto) Absolute Lymphs (auto) Nucleated RBC % Differential Comment Reactive Lymphocytes Specimen Type ART Sample Site R Radial pH 7.31 L Bicarbonate Actual 24.1 POC Total CO2 26 Base Excess -2 O2 Saturation 100 H O2 % 100 ABG pCO2 48.0 H ABG pO2 190 H Justo Test POS Respiration Rate 400 O2 Delivery Device Vent Vent Mode A-C Tidal Volume 5 POC PEEP 15 Blood Gas Notified Whom ED Blood Gas Notified Time 1425 Sodium Potassium Chloride Carbon Dioxide Anion Gap BUN Creatinine Estim Creat Clear Calc Est GFR (MDRD) Af Amer Est GFR (MDRD) Non-Af BUN/Creatinine Ratio Glucose Lactic Acid 1.8 Calcium Total Bilirubin AST ALT Alkaline Phosphatase B-Natriuretic Peptide Total Protein Albumin Globulin Albumin/Globulin Ratio Urine Color Yellow Urine Clarity Cloudy Urine pH 5.0 Ur Specific [place] 1.020 Urine Protein 30 H Urine Glucose (UA) Normal Urine Ketones 5 H Urine Occult Blood 10 H Urine Nitrite Negative Urine Bilirubin 6 H Urine Urobilinogen Normal Ur Leukocyte Esterase 500 H Urine RBC 0 SEEN Urine WBC 25-50 SEEN Ur Squamous Epith Cells 0-5 SEEN Calcium Oxalate Crystal RARE Urine Bacteria 1+ Coarse Granular Casts 10-25 SEEN Urine Mucus 0 SEEN Urine Yeast 2+ 06/14/19 06/14/19 04:30 04:30 WBC 11.3 H RBC 3.73 L Hgb 10.2 L Hct 33.0 L MCV 88.5 MCH 27.3 MCHC 30.9 L RDW Std Deviation 54.3 H RDW Coeff of Bassam 16.8 H Plt Count 225 MPV 10.9 Immature Gran % (Auto) 1.100 H Neut % (Auto) 85.1 H Lymph % (Auto) 11.1 L [place] % (Auto) 2.1 Eos % (Auto) 0.4 Baso % (Auto) 0.2 Absolute Neuts (auto) 9.7 H Absolute Lymphs (auto) 1.26 Nucleated RBC % 0 Differential Comment Reactive Lymphocytes Specimen Type Sample Site pH Bicarbonate Actual POC Total CO2 Base Excess O2 Saturation O2 % ABG pCO2 ABG pO2 Justo Test Respiration Rate O2 Delivery Device Vent Mode Tidal Volume POC PEEP Blood Gas Notified Whom Blood Gas Notified Time Sodium 141 Potassium 4.0 Chloride 111 H Carbon Dioxide 23.0 Anion Gap 7 BUN 46 H Creatinine 0.92 Estim Creat Clear Calc 56.15 Est GFR (MDRD) Af Amer 80 Est GFR (MDRD) Non-Af 66 BUN/Creatinine Ratio 49.8 H Glucose 90 Lactic Acid Calcium 8.2 L Total Bilirubin 0.20 AST 71 H ALT 39 Alkaline Phosphatase 186 H B-Natriuretic Peptide Total Protein 7.3 Albumin 1.5 L Globulin 5.8 H Albumin/Globulin Ratio 0.3 L Urine Color Urine Clarity Urine pH Ur Specific [place] Urine Protein Urine Glucose (UA) Urine Ketones Urine Occult Blood Urine Nitrite Urine Bilirubin Urine Urobilinogen Ur Leukocyte Esterase Urine RBC Urine WBC Ur Squamous Epith Cells Calcium Oxalate Crystal Urine Bacteria Coarse Granular Casts Urine Mucus Urine Yeast - Other Studies Radiology: [] reviewed Other Studies: [] Route of nutrition/ use of supplements: [] Nutritional Intake: [] IV Site: [] Siddiqi Catheter: [] - Physical Exam General: Non-Cooperative HEENT: Atraumatic, PERRLA Neck: Supple, No Nodes Lungs: Diminished, Rhonchi Cardiovascular: Regular rate, Regular Rhythm Abdomen: Soft, Non Tender, Non-Distended Extremities: Edema Skin: No rashes Musculoskeletal: No Tenderness to Palpation of Joints or Extremities - Assessment/Plan Antibiotics: [] Assessment/Plan: [] Active and Suspected Problems Severe sepsis (Acute) Acute respiratory failure with hypoxia and hypercapnia (Acute) Bilateral pneumonia (Acute) Infection due to [facility] coronavirus (Acute) COVID (+), severe sepsis, acute hypoxic resp failure, decubitus wounds - on vanc/zosyn, cxs pending. Low grade fever here. UA with some pyuria, ucx only showing yeast so far. QTC in 02/2019 was 540, so avoiding plaquenil/azithro. Will follow, thank you.
[2019-06-14] MEDS: LOXAPINE SUCCINATE 25 MG CAPSULE NG (21:49)
[2019-06-15] VITALS (36 sets, daily range): BP systolic 106–156; BP diastolic 53–71; PULSE 90–120; RESP 12–31; TEMP 38.3–39.5; O2SAT 89–118
[2019-06-15] MEDS: fentaNYL drip 100 ML 7.5 MCG IV ×2 (03:30→17:15)
[2019-06-15] MEDS: Acetaminophen 650 MG/20 ML UDC GT ×4 (04:27→20:13)
[2019-06-15] MEDS: Heparin Injection (Vial) 5,000 UNIT/ML VIAL 5000 UNIT SC (05:57)
[2019-06-15] MEDS: Gabapentin 100 MG Capsule 200 MG GT (07:39)
[2019-06-15] MEDS: Folic Acid/Vitamin B Comp W-C 1 Capsule 1 CAP GT (07:39)
[2019-06-15] MEDS: Ascorbic Acid 500 MG Tablet GT (07:40)
--- NOTE | 2019-06-15 08:26 | PCM.PN.INT ---
Subjective: Patient did okay overnight. No pressors were required and blood pressure has remained stable. Patient has been tachycardic. Patient was evaluated by the wound nurse. Patient currently intubated and sedated for vent synchrony. General: No apparent distress, - - Morbidly obese. Good vent synchrony. RASS -2. HEENT: Atraumatic, PERRLA, EOMI, Normocephalic, - - Retrognathia appreciated. Some scleral injection noted. Oral: Moist Mucosa, No Gingival or Mucosal Lesions/ Ulcerations Neck: Supple, No JVD, No Nodes, Trachea Midline Lungs: No rhonchi, No rales, Diminished, Wheezes - Sporadic, - - Symmetric expansion Cardiovascular: Normal S1, Normal S2, No murmurs, No rub noted, No Gallop, Tachycardic Abdomen: Bowel Sounds Present, Soft, Non Tender, Distended, Obese Extremities: No cyanosis, Capillary Refill Less than 3 Seconds, Edema Skin: - Musculoskeletal: No Tenderness to Palpation of Joints or Extremities - No significant change compared to previous Lymphatic: No Cervical, Supraclavicular, or Inguinal Adenopathy Neurological: Cranial nerves II-XII grossly intact, Neuro grossly intact Psych/Mental Status: Flat Affect Vital Signs Temp Pulse Resp BP Pulse Ox 38.6 C H 102 H 15 116/69 94 06/15/19 08:00 06/15/19 08:00 06/15/19 08:00 06/15/19 08:00 06/15/19 08:00 Oxygen Flow Rate (L/min) 40 Oxygen Delivery Method Mechanical Ventilator Weight: 106 kg Body Mass Index (BMI) 39.4 Intake and Output for Last 24 Hours 06/13/19 06/14/19 06/15/19 23:59 23:59 23:59 Intake Total 2688.475 / 2972.645 2460.66 / 2468.16 117.24 / 117.24 Output Total 650 / 690 540 / 840 550 / 550 Balance 2038.475 / 2282.645 1920.66 / 1628.16 -432.76 / -432.76 Labs (Last 48 Hours) 06/13/19 06/13/19 06/13/19 13:15 13:15 13:15 WBC 11.1 H RBC 4.12 L Hgb 10.9 L Hct 35.6 L MCV 86.4 MCH 26.5 L MCHC 30.6 L RDW Std Deviation 51.6 H RDW Coeff of Bassam 16.4 H Plt Count 242 MPV 11.1 Immature Gran % (Auto) 0.800 Neut % (Auto) 87.4 H Lymph % (Auto) 10.2 L [place] % (Auto) 1.2 Eos % (Auto) 0.3 Baso % (Auto) 0.1 Absolute Neuts (auto) 9.7 H Absolute Lymphs (auto) 1.13 Nucleated RBC % 0 Differential Comment SCANNED Reactive Lymphocytes 1+ PT 19.7 H INR 1.7 APTT 36.5 H Specimen Type Sample Site pH Bicarbonate Actual POC Total CO2 Base Excess O2 Saturation O2 % ABG pCO2 ABG pO2 Justo Test Respiration Rate O2 Delivery Device Vent Mode Tidal Volume POC PEEP Blood Gas Notified Whom Blood Gas Notified Time Sodium 138 Potassium 3.9 Chloride 104 Carbon Dioxide 25.0 Anion Gap 9 BUN 42 H Creatinine 1.08 H Estim Creat Clear Calc 47.83 Est GFR (MDRD) Af Amer 67 Est GFR (MDRD) Non-Af 55 L BUN/Creatinine Ratio 38.9 H Glucose 112 H Lactic Acid Calcium 8.5 Total Bilirubin 0.20 AST 88 H ALT 47 Alkaline Phosphatase 182 H Troponin I 0.041 B-Natriuretic Peptide Total Protein 7.8 Albumin 1.6 L Globulin 6.2 H Albumin/Globulin Ratio 0.3 L Urine Color Urine Clarity Urine pH Ur Specific [place] Urine Protein Urine Glucose (UA) Urine Ketones Urine Occult Blood Urine Nitrite Urine Bilirubin Urine Urobilinogen Ur Leukocyte Esterase Urine RBC Urine WBC Ur Squamous Epith Cells Calcium Oxalate Crystal Urine Bacteria Coarse Granular Casts Urine Mucus Urine Yeast 06/13/19 06/13/19 06/13/19 13:15 13:15 14:25 WBC RBC Hgb Hct MCV MCH MCHC RDW Std Deviation RDW Coeff of Bassam Plt Count MPV Immature Gran % (Auto) Neut % (Auto) Lymph % (Auto) [place] % (Auto) Eos % (Auto) Baso % (Auto) Absolute Neuts (auto) Absolute Lymphs (auto) Nucleated RBC % Differential Comment Reactive Lymphocytes PT INR APTT Specimen Type ART Sample Site R Radial pH 7.31 L Bicarbonate Actual 24.1 POC Total CO2 26 Base Excess -2 O2 Saturation 100 H O2 % 100 ABG pCO2 48.0 H ABG pO2 190 H Justo Test POS Respiration Rate 400 O2 Delivery Device Vent Vent Mode A-C Tidal Volume 5 POC PEEP 15 Blood Gas Notified Whom ED Blood Gas Notified Time 1425 Sodium Potassium Chloride Carbon Dioxide Anion Gap BUN Creatinine Estim Creat Clear Calc Est GFR (MDRD) Af Amer Est GFR (MDRD) Non-Af BUN/Creatinine Ratio Glucose Lactic Acid 2.1 H* Calcium Total Bilirubin AST ALT Alkaline Phosphatase Troponin I B-Natriuretic Peptide 298.2 H Total Protein Albumin Globulin Albumin/Globulin Ratio Urine Color Urine Clarity Urine pH Ur Specific [place] Urine Protein Urine Glucose (UA) Urine Ketones Urine Occult Blood Urine Nitrite Urine Bilirubin Urine Urobilinogen Ur Leukocyte Esterase Urine RBC Urine WBC Ur Squamous Epith Cells Calcium Oxalate Crystal Urine Bacteria Coarse Granular Casts Urine Mucus Urine Yeast 06/13/19 06/13/19 06/14/19 14:47 17:28 04:30 WBC 11.3 H RBC 3.73 L Hgb 10.2 L Hct 33.0 L MCV 88.5 MCH 27.3 MCHC 30.9 L RDW Std Deviation 54.3 H RDW Coeff of Bassam 16.8 H Plt Count 225 MPV 10.9 Immature Gran % (Auto) 1.100 H Neut % (Auto) 85.1 H Lymph % (Auto) 11.1 L [place] % (Auto) 2.1 Eos % (Auto) 0.4 Baso % (Auto) 0.2 Absolute Neuts (auto) 9.7 H Absolute Lymphs (auto) 1.26 Nucleated RBC % 0 Differential Comment Reactive Lymphocytes PT INR APTT Specimen Type Sample Site pH Bicarbonate Actual POC Total CO2 Base Excess O2 Saturation O2 % ABG pCO2 ABG pO2 Justo Test Respiration Rate O2 Delivery Device Vent Mode Tidal Volume POC PEEP Blood Gas Notified Whom Blood Gas Notified Time Sodium Potassium Chloride Carbon Dioxide Anion Gap BUN Creatinine Estim Creat Clear Calc Est GFR (MDRD) Af Amer Est GFR (MDRD) Non-Af BUN/Creatinine Ratio Glucose Lactic Acid 1.8 Calcium Total Bilirubin AST ALT Alkaline Phosphatase Troponin I B-Natriuretic Peptide Total Protein Albumin Globulin Albumin/Globulin Ratio Urine Color Yellow Urine Clarity Cloudy Urine pH 5.0 Ur Specific [place] 1.020 Urine Protein 30 H Urine Glucose (UA) Normal Urine Ketones 5 H Urine Occult Blood 10 H Urine Nitrite Negative Urine Bilirubin 6 H Urine Urobilinogen Normal Ur Leukocyte Esterase 500 H Urine RBC 0 SEEN Urine WBC 25-50 SEEN Ur Squamous Epith Cells 0-5 SEEN Calcium Oxalate Crystal RARE Urine Bacteria 1+ Coarse Granular Casts 10-25 SEEN Urine Mucus 0 SEEN Urine Yeast 2+ 06/14/19 04:30 WBC RBC Hgb Hct MCV MCH MCHC RDW Std Deviation RDW Coeff of Bassam Plt Count MPV Immature Gran % (Auto) Neut % (Auto) Lymph % (Auto) [place] % (Auto) Eos % (Auto) Baso % (Auto) Absolute Neuts (auto) Absolute Lymphs (auto) Nucleated RBC % Differential Comment Reactive Lymphocytes PT INR APTT Specimen Type Sample Site pH Bicarbonate Actual POC Total CO2 Base Excess O2 Saturation O2 % ABG pCO2 ABG pO2 Justo Test Respiration Rate O2 Delivery Device Vent Mode Tidal Volume POC PEEP Blood Gas Notified Whom Blood Gas Notified Time Sodium 141 Potassium 4.0 Chloride 111 H Carbon Dioxide 23.0 Anion Gap 7 BUN 46 H Creatinine 0.92 Estim Creat Clear Calc 56.15 Est GFR (MDRD) Af Amer 80 Est GFR (MDRD) Non-Af 66 BUN/Creatinine Ratio 49.8 H Glucose 90 Lactic Acid Calcium 8.2 L Total Bilirubin 0.20 AST 71 H ALT 39 Alkaline Phosphatase 186 H Troponin I B-Natriuretic Peptide Total Protein 7.3 Albumin 1.5 L Globulin 5.8 H Albumin/Globulin Ratio 0.3 L Urine Color Urine Clarity Urine pH Ur Specific [place] Urine Protein Urine Glucose (UA) Urine Ketones Urine Occult Blood Urine Nitrite Urine Bilirubin Urine Urobilinogen Ur Leukocyte Esterase Urine RBC Urine WBC Ur Squamous Epith Cells Calcium Oxalate Crystal Urine Bacteria Coarse Granular Casts Urine Mucus Urine Yeast Microbiology 06/13/19 14:47 Urine Catheter - Siddiqi Urine Culture - Preliminary Presumptive C albicans Staphylococcus species Gram Positive Cocci 06/13/19 18:00 Wound - Abdominal Gram Stain - Final 06/13/19 18:00 Wound - Abdominal Wound Culture - Preliminary Gram negative shani Beta hemolytic organism Gram positive shani 06/13/19 18:00 Wound - Buttock Gram Stain - Final 06/13/19 18:00 Wound - Buttock Wound Culture - Preliminary Gram negative shani Beta hemolytic organism Gram positive shani 06/14/19 12:30 Sputum, Induced/Lukens Gram Stain - Final Medical Necessity - Tobacco Use Smoking Status: Smoker, status unknown Tobacco Use: Non-smoker Assessment/Plan All Active Problems Perirectal abscess (Acute) Severe sepsis (Acute) Acute respiratory failure with hypoxia and hypercapnia (Acute) Bilateral pneumonia (Acute) Infection due to [place] coronavirus (Acute) RECOMMENDATIONS: 1. Continue broad-spectrum antibiotics 2. High PEEP, low tidal volume ventilation strategy 3. Await panculture including tissue culture 4. Consider PICC line for long-term antibiotics if blood cultures negative at 48 hours 5. Wean oxygen as tolerated. Possible attempt to wean PEEP later today 6. Continue tube feeds with Lasix for volume 7. Continue baseline psychiatric medications IMPRESSIONS: 1. Acute hypoxic respiratory failure secondary to ARDS secondary to COVID 19 Patient has been confirmed from outside testing to have COVID 19. Patient has had a chest x-ray with bilateral infiltrates. Low clinical suspicion for CHF at this time, but BNP is slightly elevated. Will attempt a high PEEP, low tidal volume ventilation strategy. Patient should also be minimized on fluid intake. Propofol can be added for sedation for vent synchrony if necessary. Hold on Plaquenil and azithromycin for now. Patient does have a complicating bacterial infection of perirectal abscess that is being evaluated by the wound nurse. 2. Severe sepsis secondary to probable UTI versus perirectal abscess Patient has grown E. coli in the past, but current gram stains are showing multiple organisms. Recommend panculture with empiric antibiotics. Patient is being followed by the wound nurse. Cannot exclude the need for debridement if patient's condition stabilizes. Patient with low albumin at this time indicating poor healing reserve. 3. Acute kidney injury Improving. Elevated creatinine with granular casts noted on urinalysis. This would be consistent with ATN. Clinical suspicion for multifactorial etiology including hypoxia, hypotension and sepsis. Continue to support the blood pressure. No indication for renal replacement therapy at this time. 4. Type 2 diabetes mellitus/hypertension/schizoaffective disorder/morbid obesity/debility Complicates care, management, recovery and prognosis. Continue tube feeds. We will hold baseline blood pressure medications. Reinitiated psychiatric medications. Poor prognosis given need for intubation with COVID 19 and secondary process of perirectal abscess, in addition to baseline comorbidities. Patient is a DNR Comfort Care arrest with intubation TIME: 34 minutes critical care time spent addressing patient's acute hypoxic respiratory failure, severe sepsis, acute kidney injury, review of all data and collaboration with care team (6:30 AM to 7:30 AM) [id number]: [id number] Critical care first hour
--- NOTE | 2019-06-15 08:28 | PCM.PROGNOTE ---
Patient Problems: Active and Suspected Problems Severe sepsis (Acute) Acute respiratory failure with hypoxia and hypercapnia (Acute) Bilateral pneumonia (Acute) Infection due to [place] coronavirus (Acute) Subjective: Chief complaint: Follow-up after admission for severe sepsis, bilateral pneumonia, suspected COVID-19, acute hypoxic respiratory failure, UTI, infected sacral decubitus ulcers, perineal and lower abdomen hydradenitis with probable perirectal abscess. Patient seen and examined. No acute events overnight. She remained on mechanical ventilation. Continued to have spikes of fever, tachycardia. Blood pressure is maintained. - Physical Exam Vitals/I&O's: Vital Signs Temp Pulse Resp BP Pulse Ox 101.4 F H 102 H 15 116/69 94 06/15/19 08:00 06/15/19 08:00 06/15/19 08:00 06/15/19 08:00 06/15/19 08:00 Oxygen Flow Rate (L/min) 40 Oxygen Delivery Method Mechanical Ventilator Weight: 233 lb 11.04 oz Body Mass Index (BMI) 39.4 Intake and Output for Last 24 Hours 06/13/19 06/14/19 06/15/19 23:59 23:59 23:59 Intake Total 2688.475 / 2972.645 2460.66 / 2468.16 117.24 / 117.24 Output Total 650 / 690 540 / 840 550 / 550 Balance 2038.475 / 2282.645 1920.66 / 1628.16 -432.76 / -432.76 General: - - Intubated, on mechanical ventilation, on sedation. HEENT: Atraumatic, PERRLA, Normocephalic Oral: Moist Mucosa, No Gingival or Mucosal Lesions/ Ulcerations Neck: Supple, No JVD, Negative Carotid Bruits, Trachea Midline, Thyroid Normal Size and Texture Lungs: No rales, Diminished, Rhonchi, Wheezes, - - Decreased breath sounds bilateral. Cardiovascular: Regular rate, Regular Rhythm, Normal S1, Normal S2, PMI Normal, Tachycardic Abdomen: Bowel Sounds Present, Soft, Non Tender, Non-Distended, No Hepato-splenomegaly, Obese Extremities: No clubbing, No cyanosis, Edema - Trace edema. Skin: No rashes, No breakdown Lymphatic: No Cervical, Supraclavicular, or Inguinal Adenopathy Neurological: - - Cranial nerves are grossly intact, unable to assess power. Psych/Mental Status: - - Unable to assess, patient is sedated. Microbiology Past 72 Hours 06/13/19 14:47 Urine Catheter - Siddiqi Urine Culture - Preliminary Presumptive C albicans Staphylococcus species Gram Positive Cocci 06/13/19 18:00 Wound - Abdominal Gram Stain - Final 06/13/19 18:00 Wound - Abdominal Wound Culture - Preliminary Gram negative shani Beta hemolytic organism Gram positive shani 06/13/19 18:00 Wound - Buttock Gram Stain - Final 06/13/19 18:00 Wound - Buttock Wound Culture - Preliminary Gram negative shani Beta hemolytic organism Gram positive shani 06/14/19 12:30 Sputum, Induced/Lukens Gram Stain - Final Current Medications Acetaminophen (Tylenol Liquid) 650 mg GT Q4H PRN PRN PRN Reason: TEMP > 100.5 F Last Admin: 06/15/19 04:27 Dose: 650 mg Documented by: Albuterol Sulfate (Ventolin Aerosols) 2.5 mg INHALATION Q4H PRN PRN PRN Reason: WHEEZING Amiodarone HCl (Cordarone) 400 mg GT DAILY REPLACED BY [facility] Last Admin: 06/14/19 09:07 Dose: 400 mg Documented by: Bisacodyl (Dulcolax) 10 mg RECTAL X1 ONE Stop: 06/15/19 10:01 Chlorhexidine Gluconate () 15 ml PO BID REPLACED BY [facility] Last Admin: 06/14/19 21:49 Dose: 15 ml Documented by: Chlorhexidine Gluconate () 1 each TOPICAL DAILY REPLACED BY [facility] Last Admin: 06/14/19 04:34 Dose: 1 each Documented by: Enoxaparin Sodium (Lovenox) 40 mg SC DAILY REPLACED BY [facility] Gabapentin (Neurontin) 300 mg GT BID REPLACED BY [facility] Last Admin: 06/15/19 08:15 Dose: Not Given Documented by: Fentanyl () 100 mls @ 5 mls/hr IV UD REPLACED BY [facility]; Protocol Last Titration: 06/15/19 07:58 Dose: 75 mcg/hr, 7.5 mls/hr Documented by: Piperacillin Sod/Tazobactam (Sod 3.375 gm/ Sodium Chloride) 50 mls @ 12.5 mls/hr IV Q8 REPLACED BY [facility] Last Admin: 06/15/19 05:57 Dose: 12.5 mls/hr Documented by: Vancomycin IV Pharmacy to Dose (1 ea/ Sodium Chloride) 500 mls @ 250 mls/hr IV PRN PRN; Protocol PRN Reason: Rx to Dose Vancomycin HCl 2,000 mg/ (Sodium Chloride) 540 mls @ 250 mls/hr IV Q12H REPLACED BY [facility] Last Admin: 06/15/19 07:16 Dose: 250 mls/hr Documented by: Loxapine Succinate (Loxapine) 25 mg GT QHS MALGORZATA Senna/Docusate Sodium (Senokot-S, Laureen-Colace) 2 tablet GT BID MALGORZATA Sodium Chloride () 10 - 40 ml IV UD PRN PRN Reason: SALINE FLUSH Medical Necessity - Tobacco Use Smoking Status: Smoker, status unknown Tobacco Use: Non-smoker Assessment/Plan All Active Problems Perirectal abscess (Acute) Severe sepsis (Acute) Acute respiratory failure with hypoxia and hypercapnia (Acute) Bilateral pneumonia (Acute) Infection due to [place] coronavirus (Acute) This is a 59 years old female patient presented to the emergency room because of shortness of breath and cough, was diagnosed with pneumonia at the assisted and started on Levaquin on June 06, 2019 and she tested positive for COVID-19, admitted for acute hypoxic respiratory failure secondary to ARDS due to COVID-19 and also found to have severe sepsis, acute kidney injury, multiple sacral decubitus ulcers which looked infected as well as severe hidradenitis of the lower abdominal and perineal region. #1 acute hypoxic respiratory failure/ARDS/bilateral viral pneumonia secondary to COVID-19: She is on IV vancomycin and Zosyn. Remained on mechanical ventilation. She continued to have spikes of fever, tachycardia, blood pressure is maintained. Chest x-ray revealed right lung fluffy infiltrate involving the whole right lung as well as mid left lung. Blood cultures pending. Urine culture revealed gram-positive cocci, staph species, final is pending. Wound culture revealed gram-negative and gram-positive rods as well as beta-hemolytic organism, final is pending. Critical care on the case. Plan to continue same treatment. #2 severe sepsis: Attributed to viral pneumonia as well as infected multiple sacral decubitus ulcers and severe hidradenitis. Lactic acid is down from 2.1 down to 1.8. She is on IV antibiotics as above. Urine and wound cultures reviewed as above. Blood cultures pending. Plan to continue same treatment. #3 infected multiple sacral decubitus ulcers/severe hidradenitis of the lower abdominal wall and perineal region/probable perirectal abscess: She is on IV Zosyn and vancomycin. She continued to have spikes of fever, tachycardia. Wound and urine culture reviewed as above. Blood cultures pending. Wound care nurse is seeing the patient. #4 mild acute kidney injury: Likely due to ATN secondary to severe sepsis and infection. Patient received small amount of IV fluids, kidney function back to normal.. #5 type 2 diabetes mellitus: Under control. Patient is not on any antidiabetic medications. Plan to monitor. #6 hypertension: Blood pressure stabilized but she is still tachycardic. Apparently, she is not on any antihypertensive medications at the assisted. #7 chronic atrial fibrillation: Rate remained around 100-110, continue amiodarone through the G-tube with tube feeds. She is not on anticoagulation. #8 bipolar disorder/schizophrenia/PTSD: Continue loxapine, keep holding clonazepam. #9 DVT prophylaxis: Subcu heparin. This note was generated with [employer]out[employer] dictation software. It may contain incorrect words, spelling, and punctuation that were not noted in checking the note before signing. Inpatient E&M: [id number] [facility] L3
--- NOTE | 2019-06-15 09:53 | CM.UR ---
Participated in interdisciplinary rounds this am. Patient remain intubated. Has multiple decubitus ulcers She is from [place] and plan is probably to return to [place]. Per report given to me: Patient's daughter applied for [address] services and if approved she plans to take her home and care for her there. Pierre Jarrett RN, [facility].
[2019-06-15] MEDS: Chlorhexidine 15 ML PO ×2 (09:56→21:34)
[2019-06-15] MEDS: Enoxaparin 40 MG/0.4 ML Syringe SC (09:56)
[2019-06-15] MEDS: Vital AF 1.2 Cal Liquid 1,000 ML 55 ML GT (09:56)
[2019-06-15] MEDS: CHLORHEXIDINE GLUC 2% CLOTH 1 EACH TOWELETTE TOPICAL (09:56)
[2019-06-15] MEDS: Amiodarone 200 MG Tablet 400 MG GT (09:56)
[2019-06-15] MEDS: Senna/Docusate Sodium 1 Tablet 2 TABLET GT ×2 (09:57→21:29)
[2019-06-15 18:58] LABS: Vancomycin, Trough Level 47.1 ug/mL (5.0-15.0)
--- NOTE | 2019-06-15 20:37 | PCM.RX.CS ---
Consult Pharmacy has been consulted to manage selected antiobiotic: Vancomycin Type of Consult: Follow-up Suspected Infection: Sepsis Prior Doses of Antibiotics Received/Current Regimen: Medications Discontinued Medications Vancomycin HCl 2,000 mg/ (Sodium Chloride) 540 mls @ 250 mls/hr IV Q12H MALGORZATA Last Admin: 06/15/19 19:40 Dose: Infused partially- stopped. Labs: Sodium 141 mmol/L (136-145) 06/14/19 04:30 Potassium 4.0 mmol/L (3.5-5.1) 06/14/19 04:30 Chloride 111 mmol/L (98-107) H 06/14/19 04:30 Carbon Dioxide 23.0 mmol/L (21.0-32.0) 06/14/19 04:30 Anion Gap 7 (5-15) 06/14/19 04:30 BUN 46 mg/dL (7-18) H 06/14/19 04:30 Creatinine 0.92 mg/dL (0.55-1.02) 06/14/19 04:30 Est GFR (MDRD) Af Amer 80 mL/min (>60) 06/14/19 04:30 Est GFR (MDRD) Non-Af 66 mL/min (>60) 06/14/19 04:30 BUN/Creatinine Ratio 49.8 RATIO (10-20) H 06/14/19 04:30 Glucose 90 mg/dL (74-106) 06/14/19 04:30 Vancomycin Trough 47.1 ug/mL (5.0-15.0) H 06/15/19 18:00 Microbiology: Microbiology 06/13/19 13:15 Blood Culture (Wb) - Anticubital Right Blood Culture - Preliminary No growth in 48 hours. 06/13/19 13:15 Blood Culture (Wb) - Left Hand Blood Culture - Preliminary No growth in 48 hours. 06/14/19 12:30 Sputum, Induced/Lukens Gram Stain - Final 06/14/19 12:30 Sputum, Induced/Lukens Respiratory Culture - Preliminary Staphylococcus aureus 06/13/19 18:00 Wound - Abdominal Gram Stain - Final 06/13/19 18:00 Wound - Abdominal Wound Culture - Preliminary Gram negative shani Beta hemolytic organism Gram positive shani 06/13/19 18:00 Wound - Buttock Gram Stain - Final 06/13/19 18:00 Wound - Buttock Wound Culture - Preliminary Gram negative shani Beta hemolytic organism Gram positive shani 06/13/19 14:47 Urine Catheter - Siddiqi Urine Culture - Preliminary Presumptive C albicans Staphylococcus species Gram Positive Cocci Weight used for dosin kg Estimated Creatinine Clearance: 56 Goal Trough: 15-20 mcg/mL Pharmacy Plan for Drug Dosing: Trough level drawn 06/15/19 @1800 was high (47), so current dose infusing was stopped. Will draw a random vanco level in am to determine the continuing dose. Pharmacy Service will continue to monitor and adjust dosing as required. Follow-Up Labs: Trough Vancomycin - random Labs to be done on [date and time ordered]: 06/16/19 @0600
[2019-06-15] MEDS: Gabapentin 100 MG Capsule 300 MG GT (21:29)
[2019-06-15] MEDS: LOXAPINE SUCCINATE 25 MG CAPSULE GT (21:29)
[2019-06-16] VITALS (35 sets, daily range): BP systolic 102–144; BP diastolic 40–67; PULSE 96–121; RESP 12–24; TEMP 37.9–39.3; O2SAT 85–98
[2019-06-16] MEDS: Acetaminophen 650 MG/20 ML UDC GT ×4 (02:15→20:01)
[2019-06-16 05:49] LABS: Vancomycin, Random Level 46.2 ug/mL (0.0-15.0)
[2019-06-16] MEDS: fentaNYL drip 100 ML 7.5 MCG IV ×2 (06:30→19:40)
[2019-06-16] MEDS: Albuterol 2.5 MG/3 ML VIAL.NEB. INHALATION ×3 (06:58→19:01)
--- NOTE | 2019-06-16 09:24 | PCM.PROGNOTE ---
Patient Problems: Active and Suspected Problems Severe sepsis (Acute) Acute respiratory failure with hypoxia and hypercapnia (Acute) Bilateral pneumonia (Acute) Infection due to [place] coronavirus (Acute) Subjective: Chief complaint: Follow-up after admission for severe sepsis, bilateral viral pneumonia due to COVID-19, acute hypoxic respiratory failure, UTI, polymicrobial infected sacral decubitus ulcers, perineal and lower abdomen hydradenitis with probable perirectal abscess. Patient seen and examined. No acute events overnight. She made a mechanical ventilation, down on PEEP. Still having spikes of fever, tachycardia, blood pressure is maintained. - Physical Exam Vitals/I&O's: Vital Signs Temp Pulse Resp BP Pulse Ox 100.6 F H 107 H 14 144/67 H 94 06/16/19 08:00 06/16/19 08:00 06/16/19 08:00 06/16/19 08:00 06/16/19 08:00 Oxygen Flow Rate (L/min) 50 Oxygen Delivery Method Mechanical Ventilator Weight: 235 lb 0.204 oz Body Mass Index (BMI) 39.4 Intake and Output for Last 24 Hours 06/14/19 06/15/19 06/16/19 23:59 23:59 23:59 Intake Total 2460.66 / 2468.16 1116.88 / 1419.38 679.25 / 679.25 Output Total 540 / 840 1575 / 1875 315 / 315 Balance 1920.66 / 1628.16 -458.12 / -455.62 364.25 / 364.25 General: - - Intubated, on mechanical ventilation, on sedation. HEENT: Atraumatic, PERRLA, Normocephalic Oral: Moist Mucosa, No Gingival or Mucosal Lesions/ Ulcerations Neck: Supple, No JVD, Negative Carotid Bruits, Trachea Midline, Thyroid Normal Size and Texture Lungs: No wheeze, No rales, Diminished, Rhonchi, - - Decreased breath sounds bilateral. Cardiovascular: Regular rate, Regular Rhythm, Normal S1, Normal S2, PMI Normal, Tachycardic Abdomen: Bowel Sounds Present, Soft, Non Tender, Non-Distended, No Hepato-splenomegaly, Obese Extremities: No clubbing, No cyanosis, Edema - Trace edema. Skin: No rashes, Ulcer/ Wound, - - Mottled skin. Lymphatic: No Cervical, Supraclavicular, or Inguinal Adenopathy Neurological: Cranial nerves II-XII grossly intact, - - Unable to assess power. Psych/Mental Status: - - Unable to assess, on sedation. Microbiology Past 72 Hours 06/13/19 14:47 Urine Catheter - Siddiqi Urine Culture - Final Presumptive C albicans Meth. resistant Staph. aureus Enterococcus faecalis 06/13/19 18:00 Wound - Buttock Gram Stain - Final 06/13/19 18:00 Wound - Buttock Wound Culture - Final Proteus mirabilis Meth. resistant Staph. aureus Corynebacterium amycolatum 06/14/19 12:30 Sputum, Induced/Lukens Gram Stain - Final 06/14/19 12:30 Sputum, Induced/Lukens Respiratory Culture - Final Meth. resistant Staph. aureus 06/13/19 18:00 Wound - Abdominal Gram Stain - Final 06/13/19 18:00 Wound - Abdominal Wound Culture - Final Proteus mirabilis Meth. resistant Staph. aureus Corynebacterium amycolatum 06/13/19 13:15 Blood Culture (Wb) - Anticubital Right Blood Culture - Preliminary No growth in 48 hours. 06/13/19 13:15 Blood Culture (Wb) - Left Hand Blood Culture - Preliminary No growth in 48 hours. Laboratory Results 06/15/19 18:00: Vancomycin Trough 47.1 H 06/16/19 05:10: Random Vancomycin 46.2 H Current Medications Acetaminophen (Tylenol Liquid) 650 mg GT Q4H PRN PRN PRN Reason: TEMP > 100.5 F Last Admin: 06/16/19 02:15 Dose: 650 mg Documented by: Albuterol Sulfate (Ventolin Aerosols) 2.5 mg INHALATION Q4H PRN PRN PRN Reason: WHEEZING Last Admin: 06/16/19 06:58 Dose: 2.5 mg Documented by: Amiodarone HCl (Cordarone) 400 mg GT DAILY [facility] Last Admin: 06/15/19 09:56 Dose: 400 mg Documented by: Chlorhexidine Gluconate () 15 ml PO BID [facility] Last Admin: 06/15/19 21:34 Dose: 15 ml Documented by: Chlorhexidine Gluconate () 1 each TOPICAL DAILY [facility] Last Admin: 06/15/19 09:56 Dose: 1 each Documented by: Enoxaparin Sodium (Lovenox) 40 mg SC DAILY [facility] Last Admin: 06/15/19 09:56 Dose: 40 mg Documented by: Gabapentin (Neurontin) 300 mg GT BID [facility] Last Admin: 06/15/19 21:29 Dose: 300 mg Documented by: Fentanyl () 100 mls @ 5 mls/hr IV UD MALGORZATA; Protocol Last Admin: 06/16/19 06:30 Dose: 75 mcg/hr, 7.5 mls/hr Documented by: Vancomycin IV Pharmacy to Dose (1 ea/ Sodium Chloride) 500 mls @ 250 mls/hr IV PRN PRN; Protocol PRN Reason: Rx to Dose Enteral Nutritional Formula (Vital Af 1.2 Juma Liquid) 1,000 mls @ 55 mls/hr GT .[id number] [facility] Last Admin: 06/16/19 05:47 Dose: Not Given Documented by: Ceftriaxone Sodium (Rocephin) 1 gm in 50 mls @ 100 mls/hr IV Q24 [facility] Stop: 06/19/19 10:29 Loxapine Succinate (Loxapine) 25 mg GT QHS [facility] Last Admin: 06/15/19 21:29 Dose: 25 mg Documented by: Nutritional Formula (Thor - Jasper Flavor) 1 packet GT BID [facility] Senna/Docusate Sodium (Senokot-S, Laureen-Colace) 2 tablet GT DAILY PRN PRN PRN Reason: CONSTIPATION Sodium Chloride () 10 - 40 ml IV UD PRN PRN Reason: SALINE FLUSH Medical Necessity - Tobacco Use Smoking Status: Smoker, status unknown Tobacco Use: Non-smoker Assessment/Plan All Active Problems Perirectal abscess (Acute) Severe sepsis (Acute) Acute respiratory failure with hypoxia and hypercapnia (Acute) Bilateral pneumonia (Acute) Infection due to [facility] coronavirus (Acute) This is a 59 years old female patient presented to the emergency room because of shortness of breath and cough, was [facility] with [facility] and started on Levaquin on June 06, 2019 and she tested positive for COVID-19, admitted for acute hypoxic respiratory failure secondary to ARDS due to COVID-19 and also found to have severe sepsis, acute kidney injury, multiple sacral decubitus ulcers which looked infected as well as severe hidradenitis of the lower abdominal and perineal region. #1 acute hypoxic respiratory failure/ARDS/bilateral viral pneumonia secondary to COVID-19: She is on IV vancomycin and Rocephin. Remained on mechanical ventilation. Still having spikes of fever, tachycardia. Blood pressure is maintained. WBC is trending up. Chest x-ray revealed right lung fluffy infiltrate involving the whole right lung as well as mid left lung. Blood cultures showed no growth in 48 hours. Urine culture revealed MRSA, enteric coccus faecalis and presumptive Tracey albicans. Critical care on the case. Plan to continue same treatment plan to continue high PEEP and low tidal volume. #2 severe sepsis: Attributed to viral pneumonia as well as infected multiple sacral decubitus ulcers and severe hidradenitis. She is on IV vancomycin and Rocephin. Lactic acid is down from 2.1 down to 1.8. She still having spikes of fever, tachycardia, blood pressure is holding. Blood culture showed no growth as above. Urine and wound culture reviewed. Plan as above. #3 infected polymicrobial multiple sacral decubitus ulcers/severe hidradenitis of the lower abdominal wall and perineal region/probable perirectal abscess: She is on IV vancomycin and Rocephin. She continued to have spikes of fever, tachycardia. Blood culture showed no growth in 48 hours. Wound culture revealed MRSA, Proteus mirabilis and Corynebacterium. Patient may need CT scan pelvis when stable. Infectious disease on the case, will reevaluate tomorrow. Plan to continue same treatment. #4 acute kidney injury: Likely due to ATN secondary to severe sepsis and infection. Initially, kidney function improved but now, creatinine is up again and it is 1.72 mg/dL today. Patient has been on tube feeds. Plan to monitor. No plan for IV antibiotics to avoid ARDS. #5 type 2 diabetes mellitus: Under control. Patient is not on any antidiabetic medications. Plan to monitor. #6 hypertension: Blood pressure stabilized but she is still tachycardic. Apparently, she is not on any antihypertensive medications at the [facility]. #7 chronic atrial fibrillation: Rate remained around 100-110, continue amiodarone through the G-tube with tube feeds. She is not on anticoagulation. #8 bipolar disorder/schizophrenia/PTSD: Continue loxapine, keep holding clonazepam. #9 DVT prophylaxis: Subcu Lovenox. This note was generated with iTaggitation software. It may contain incorrect words, spelling, and punctuation that were not noted in checking the note before signing. Inpatient E&M: 23059 Subs Hosp L3
[2019-06-16] MEDS: Chlorhexidine 15 ML PO ×2 (09:48→22:44)
[2019-06-16] MEDS: Amiodarone 200 MG Tablet 400 MG GT (09:48)
[2019-06-16] MEDS: Gabapentin 100 MG Capsule 300 MG GT ×2 (09:48→22:43)
[2019-06-16] MEDS: CHLORHEXIDINE GLUC 2% CLOTH 1 EACH TOWELETTE TOPICAL (09:48)
[2019-06-16] MEDS: Enoxaparin 40 MG/0.4 ML Syringe SC (09:49)
[2019-06-16] MEDS: Ceftriaxone 1 GM/50 ML BAG IV (09:49)
[2019-06-16 09:57] LABS: Absolute Lymphocyte Count 1.25 X10^3/uL (0.83-4.51); Absolute Neutrophil Count 14.3 X10^3/uL (2.0-7.7); Basophil# 0.02 X10^3/uL; Basophil% 0.1 % (0-1); Eosinophil# 0.03 X10^3/uL; Eosinophils% 0.2 % (0-5); Hematocrit 32.4 % (37-47); Hemoglobin 9.5 g/dL (12.0-15.0); Lymphocyte # 1.25 X10^3/ul (4.0); Lymphocyte % 7.6 % (19-41); Mean Corp Hgb Conc 29.3 g/dL (32-36); Mean Corpuscular Hgb 27.2 pg (27.0-32.0); Mean Corpuscular Volume 92.8 fL (81-99); Mean Platelet Vol. 10.4 fl (6.2-12.0); Monocyte# 0.37 X10^3/uL; Monocyte% 2.3 % (0-10); NRBC Flagged by Analyzer 0.1 % (0-5); Neutrophil # 14.33 X10^3/uL (2.7-7.7); Neutrophil % 87.5 % (47-70); Platelet Count 194 K/mm3 (150-450); RBC Distribution Width CV 17.9 % (11.6-14.6); RBC Distribution Width SD 60.8 fl (35.1-43.9); Red Blood Count 3.49 M/mm3 (4.2-5.4); White Blood Count 16.4 K/mm3 (4.4-11.0)
--- NOTE | 2019-06-16 10:01 | PN_ITS ---
Subjective: Patient did okay overnight. Tube feeds have remained at goal and patient did have a bowel movement. Some improvement in PEEP has been noted. Patient continues to have fevers and tachycardia, but blood pressures have been holding. No pressors have been required. General: - - Intubated and sedated. RASS -2. Morbidly obese. HEENT: Atraumatic, PERRLA, EOMI, Normocephalic, - - No scleral icterus or injection noted Oral: Moist Mucosa, No Gingival or Mucosal Lesions/ Ulcerations Neck: Supple, No JVD, No Nodes, Trachea Midline Lungs: No rhonchi, No rales, Diminished, Wheezes - Improved with aerosol Cardiovascular: Regular Rhythm, Normal S1, Normal S2, No murmurs, No rub noted, No Gallop, Tachycardic, - - Some episodes of transient/paroxysmal A. fib overnight Abdomen: Bowel Sounds Present, Soft, Non Tender, Non-Distended, Obese Extremities: No clubbing, No cyanosis, Edema Skin: No rashes, No breakdown Musculoskeletal: No Tenderness to Palpation of Joints or Extremities Lymphatic: No Cervical, Supraclavicular, or Inguinal Adenopathy Neurological: Cranial nerves II-XII grossly intact, Neuro grossly intact Psych/Mental Status: Flat Affect Vital Signs Temp Pulse Resp BP Pulse Ox 38.1 C H 107 H 14 144/67 H 94 06/16/19 08:00 06/16/19 08:00 06/16/19 08:00 06/16/19 08:00 06/16/19 08:00 Oxygen Flow Rate (L/min) 50 Oxygen Delivery Method Mechanical Ventilator Weight: 106.6 kg Body Mass Index (BMI) 39.4 Intake and Output for Last 24 Hours 06/14/19 06/15/19 06/16/19 23:59 23:59 23:59 Intake Total 2460.66 / 2468.16 1116.88 / 1419.38 679.25 / 679.25 Output Total 540 / 840 1575 / 1875 315 / 315 Balance 1920.66 / 1628.16 -458.12 / -455.62 364.25 / 364.25 Labs (Last 48 Hours) 06/15/19 06/16/19 06/16/19 18:00 05:10 09:40 WBC Pending RBC Pending Hgb Pending Hct Pending MCV Pending MCH Pending MCHC Pending RDW Std Deviation Pending RDW Coeff of Bassam Pending Plt Count Pending Neut % (Auto) Pending Absolute Neuts (auto) Pending Sodium Potassium Chloride Carbon Dioxide Anion Gap BUN Creatinine Est GFR (MDRD) Af Amer Est GFR (MDRD) Non-Af BUN/Creatinine Ratio Glucose Calcium Phosphorus Magnesium Vancomycin Trough 47.1 H Random Vancomycin 46.2 H 06/16/19 09:40 WBC RBC Hgb Hct MCV MCH MCHC RDW Std Deviation RDW Coeff of Bassam Plt Count Neut % (Auto) Absolute Neuts (auto) Sodium Pending Potassium Pending Chloride Pending Carbon Dioxide Pending Anion Gap Pending BUN Pending Creatinine Pending Est GFR (MDRD) Af Amer Pending Est GFR (MDRD) Non-Af Pending BUN/Creatinine Ratio Pending Glucose Pending Calcium Pending Phosphorus Pending Magnesium Pending Vancomycin Trough Random Vancomycin Microbiology 06/13/19 14:47 Urine Catheter - Siddiqi Urine Culture - Final Presumptive C albicans Meth. resistant Staph. aureus Enterococcus faecalis 06/13/19 18:00 Wound - Buttock Gram Stain - Final 06/13/19 18:00 Wound - Buttock Wound Culture - Final Proteus mirabilis Meth. resistant Staph. aureus Corynebacterium amycolatum 06/14/19 12:30 Sputum, Induced/Lukens Gram Stain - Final 06/14/19 12:30 Sputum, Induced/Lukens Respiratory Culture - Final Meth. resistant Staph. aureus 06/13/19 18:00 Wound - Abdominal Gram Stain - Final 06/13/19 18:00 Wound - Abdominal Wound Culture - Final Proteus mirabilis Meth. resistant Staph. aureus Corynebacterium amycolatum 06/13/19 13:15 Blood Culture (Wb) - Anticubital Right Blood Culture - Prel iminary No growth in 48 hours. 06/13/19 13:15 Blood Culture (Wb) - Left Hand Blood Culture - Preliminary No growth in 48 hours. Medical Necessity - Tobacco Use Smoking Status: Smoker, status unknown Tobacco Use: Non-smoker Assessment/Plan All Active Problems Perirectal abscess (Acute) Severe sepsis (Acute) Acute respiratory failure with hypoxia and hypercapnia (Acute) Bilateral pneumonia (Acute) Infection due to [place] coronavirus (Acute) RECOMMENDATIONS: 1. Continue broad-spectrum antibiotics for polymicrobial wound infection 2. High PEEP, low tidal volume ventilation strategy 3. Possible diuretics pending laboratory work-up 4. Consider PICC line for long-term antibiotics if ID suspects protracted antibiotic course 5. Wean oxygen as tolerated. Possible attempt to wean PEEP later today 6. Continue tube feeds with Lasix for volume 7. Continue baseline psychiatric medications IMPRESSIONS: 1. Acute hypoxic respiratory failure secondary to ARDS secondary to COVID 19 Patient has been confirmed from outside testing to have COVID 19. Patient has had a chest x-ray with bilateral infiltrates. Low clinical suspicion for CHF at this time, but BNP is slightly elevated. Will attempt a high PEEP, low tidal volume ventilation strategy. Patient should also be minimized on fluid intake. Will attempt giving Lasix later today pending laboratory data. Propofol can be added for sedation for vent synchrony if necessary. Hold on Plaquenil and azithromycin for now. Patient does have a complicating bacterial infection of perirectal abscess that is being evaluated by the wound nurse. 2. Severe sepsis secondary to probable UTI versus perirectal abscess Patient has grown E. coli in the past, but current cultures are showing multiple organisms. All cultures organisms appear to be susceptible to current antibiotic regimen. Patient is being followed by the wound nurse. Cannot exclude the need for debridement if patient's condition stabilizes. Patient with low albumin at this time indicating poor healing reserve. 3. Acute kidney injury Improving. Today's labs are pending. Elevated creatinine with granular casts noted on urinalysis. This would be consistent with ATN. Clinical suspicion for multifactorial etiology including hypoxia, hypotension and sepsis. Continue to support the blood pressure. No indication for renal replacement therapy at this time. 4. Type 2 diabetes mellitus/hypertension/schizoaffective disorder/morbid obesity/debility Complicates care, management, recovery and prognosis. Continue tube feeds. We will hold baseline blood pressure medications. Reinitiated psyc hiatric medications. Poor prognosis given need for intubation with COVID 19 and secondary process of perirectal abscess, in addition to baseline comorbidities. Patient is a DNR Comfort Care arrest with intubation TIME: 38 minutes critical care time spent addressing patient's acute hypoxic respiratory failure, severe sepsis, acute kidney injury, review of all data and collaboration with care team (9 AM to 10 AM) [phone]: [id number] Critical care first hour
[2019-06-16 10:10] LABS: Anion Gap 3 (5-15); BUN 59 mg/dL (7-18); BUN/Creat Ratio 34.3 RATIO (10-20); Calcium,Total 8.6 mg/dL (8.5-10.1); Chloride 119 mmol/L (98-107); Creatinine, Serum 1.72 mg/dL (0.55-1.02); EST Glomerular Filtration Rate 32 mL/min (>60); Est Glom Filt Rate - Afr Amer 39 mL/min (>60); Estimated Creatinine Clearance 30.04 ml/min; Glucose 137 mg/dL (74-106); Phosphorus 2.9 mg/dL (2.5-4.9); Potassium 3.9 mmol/L (3.5-5.1); Sodium Level 147 mmol/L (136-145)
[2019-06-16] MEDS: Vital AF 1.2 Cal Liquid 1,000 ML 55 ML GT (17:58)
[2019-06-16] MEDS: LOXAPINE SUCCINATE 25 MG CAPSULE GT (22:44)
[2019-06-17] VITALS (35 sets, daily range): BP systolic 95–140; BP diastolic 35–68; PULSE 88–124; RESP 12–24; TEMP 38.7–39.3; O2SAT 91–98
[2019-06-17] MEDS: Acetaminophen 650 MG/20 ML UDC GT ×4 (03:45→18:07)
[2019-06-17 04:28] LABS: Vancomycin, Random Level 33.1 ug/mL (0.0-15.0)
--- NOTE | 2019-06-17 07:18 | PN_ITS ---
Subjective: The patient was seen and examined at the bedside this morning. Events from the last 24 hours have been reviewed. The patient is currently febrile with a T-max overnight of 102.7 ?F. The patient remains hemodynamically stable with an FiO2 requirement of 40% and PEEP of 8. All sedation is currently on hold, as the patient was noted to be encephalopathic. The patient is currently documented to be overall net +4.6 L for the hospital admission. Objective: The patient's most recent lab work, culture data and imaging studies have all been personally reviewed. Blood cultures have shown no growth to date. Urine culture was positive for MRSA and Enterococcus faecalis. Abdominal wound culture was positive for Proteus mirabilis, MRSA and Corynebacterium. Buttock wound culture was positive for Proteus mirabilis, MRSA and Corynebacterium. Sputum culture was positive for MRSA. General: - - Remains intubated and mechanically ventilated. No ventilator dyssynchrony noted. HEENT: Atraumatic, Normocephalic Oral: No Gingival or Mucosal Lesions/ Ulcerations, - - Endotracheal and OG tubes remain in place Neck: Supple, No Nodes, Trachea Midline Lungs: No rhonchi, No wheeze, No rales, Diminished Cardiovascular: Normal S1, Normal S2, Irregular Rate, Tachycardic Abdomen: Bowel Sounds Present, Soft, Non Tender, Obese Extremities: No clubbing, No cyanosis, Edema Skin: Ulcer/ Wound - POA Musculoskeletal: No Muscle Wasting Lymphatic: No Cervical, Supraclavicular, or Inguinal Adenopathy Neurological: - - Currently nonresponsive to verbal and tactile stimulation. Vital Signs Temp Pulse Resp BP Pulse Ox 101.8 F H 104 H 16 115/55 L 92 06/17/19 07:00 06/17/19 07:00 06/17/19 07:00 06/17/19 07:00 06/17/19 07:00 Oxygen Flow Rate (L/min) 50 Oxygen Delivery Method Mechanical Ventilator Weight: 235 lb 3.732 oz Body Mass Index (BMI) 39.4 Intake and Output for Last 24 Hours 06/15/19 06/16/19 06/17/19 23:59 23:59 23:59 Intake Total 1116.88 / 1419.38 1268.00 / 1275.50 448.75 / 448.75 Output Total 1575 / 1875 625 / 625 Balance -458.12 / -455.62 643.00 / 650.50 448.75 / 448.75 Labs (Last 48 Hours) 06/15/19 06/16/19 06/16/19 18:00 05:10 09:40 WBC 16.4 H RBC 3.49 L Hgb 9.5 L Hct 32.4 L MCV 92.8 MCH 27.2 MCHC 29.3 L D RDW Std Deviation 60.8 H RDW Coeff of Bassam 17.9 H Plt Count 194 MPV 10.4 Immature Gran % (Auto) 2.300 H Neut % (Auto) 87.5 H Lymph % (Auto) 7.6 L [place] % (Auto) 2.3 Eos % (Auto) 0.2 Baso % (Auto) 0.1 Absolute Neuts (auto) 14.3 H Absolute Lymphs (auto) 1.25 Nucleated RBC % 0.1 Sodium Potassium Chloride Carbon Dioxide Anion Gap BUN Creatinine Estim Creat Clear Calc Est GFR (MDRD) Af Amer Est GFR (MDRD) Non-Af BUN/Creatinine Ratio Glucose Calcium Phosphorus Magnesium Vancomycin Trough 47.1 H Random Vancomycin 46.2 H 06/16/19 06/17/19 09:40 03:20 WBC RBC Hgb Hct MCV MCH MCHC RDW Std Deviation RDW Coeff of Bassam Plt Count MPV Immature Gran % (Auto) Neut % (Auto) Lymph % (Auto) [place] % (Auto) Eos % (Auto) Baso % (Auto) Absolute Neuts (auto) Absolute Lymphs (auto) Nucleated RBC % Sodium 147 H Potassium 3.9 Chloride 119 H Carbon Dioxide 25.0 Anion Gap 3 L BUN 59 H Creatinine 1.72 H Estim Creat Clear Calc 30.04 Est GFR (MDRD) Af Amer 39 L Est GFR (MDRD) Non-Af 32 L BUN/Creatinine Ratio 34.3 H Glucose 137 H Calcium 8.6 Phosphorus 2.9 Magnesium 2.0 Vancomycin Trough Random Vancomycin 33.1 H Microbiology 06/13/19 14:47 Urine Catheter - Siddiqi Urine Culture - Final Presumptive C albicans Meth. resistant Staph. aureus Enterococcus faecalis 06/13/19 18:00 Wound - Buttock Gram Stain - Final 06/13/19 18:00 Wound - Buttock Wound Culture - Final Proteus mirabilis Meth. resistant Staph. aureus Corynebacterium amycolatum 06/14/19 12:30 Sputum, Induced/Lukens Gram Stain - Final 06/14/19 12:30 Sputum, Induced/Lukens Respiratory Culture - Final Meth. resistant Staph. aureus 06/13/19 18:00 Wound - Abdominal Gram Stain - Final 06/13/19 18:00 Wound - Abdominal Wound Culture - Final Proteus mirabilis Meth. resistant Staph. aureus Corynebacterium amycolatum 06/13/19 13:15 Blood Culture (Wb) - Anticubital Right Blood Culture - Preliminary No growth in 48 hours. 06/13/19 13:15 Blood Culture (Wb) - Left Hand Blood Culture - Preliminary No growth in 48 hours. Clinical Impression(s) from Imaging Studies Chest X-Ray 06/13/19 14:30 IMPRESSION: Infiltrates in the right lung as well as in the left mid lung. Follow-up is recommended. The tip of the endotracheal tube is at 4 cm proximal to the garret. Electronically Signed: Steve Fierro, at 14:55 EDT , Service support , Hip/Pelvis X-Ray 06/13/19 14:30 IMPRESSION: Degenerative changes of both hips as well as the sacroiliac joints. Electronically Signed: Steve Fierro, at 14:55 EDT , Service support , KUB X-Ray 06/13/19 14:30 IMPRESSION: The tip of the orogastric tube is seen in the distal stomach/pyloric region. Electronically Signed: Steve Fierro at 14:53 EDT , Service support , Medical Necessity - Tobacco Use Smoking Status: Smoker, status unknown Tobacco Use: Non-smoker Assessment/Plan All Active Problems Perirectal abscess (Acute) Severe sepsis (Acute) Acute respiratory failure with hypoxia and hypercapnia (Acute) Bilateral pneumonia (Acute) Infection due to [place] coronavirus (Acute) RECOMMENDATIONS: 1. Obtain CBC with differential, comprehensive metabolic profile, ammonia and repeat ABG. 2. Continue antimicrobials per ID recommendations. 3. Continue tube feeds as tolerated. 4. Continue lung protective ventilatory strategy. Wean FiO2 and PEEP to maintain oxygen saturations at or above 90%. 5. Obtain Nephrology consultation, given worsening renal insufficiency. 6. Discontinue Neurontin. 7. Continue appropriate ICU prophylaxis. IMPRESSIONS: 1. Acute hypoxemic respiratory failure 2/2 ARDS due to COVID-19 infection combined with MRSA Pneumonia Continue current supportive measures with invasive mechanical ventilatory support, employing a lung protective strategy, along with antimicrobials per infectious diseases recommendations. Azithromycin and Plaquenil were avoided due to prolonged QTC at baseline. Continue to wean FiO2 and PEEP to maintain oxygen saturations at or above 90%. The patient is currently overall net +4.5 L for the hospital admission. However, given worsening renal insufficiency, plan to avoid diuretic therapy. Nephrology will be consulted to assist with management. 2. Severe sepsis secondary to COVID-19 Infection and MRSA Pneumonia Continue current supportive measures as noted above. The patient remains hemodynamically stable. 3. Acute kidney injury The patient has developed worsening renal insufficiency over the last several days. Plan to avoid diuretic therapy for now. However, nephrology consultation will be obtained, as I do anticipate that the patient's volume status is going to become a hindrance for the successful weaning from invasive mechanical ventilatory support. 4. Encephalopathy Unclear etiology. Will obtain repeat arterial blood gas to ensure that the patient has not become more hypercarbic. In addition, repeat chemistry profile reveals that the patient is now starting to become uremic. Continue to withhold all sedating medications. Neurontin has also been discontinued. Ammonia level is pending. 5. Diabetes mellitus/hypertension/schizoaffective disorder/morbid obesity Complicates care, management, recovery and prognosis. Continue sliding scale insulin coverage. TIME: 45 minutes of critical care time, independent of procedures, was spent addressing the patient's acute hypoxemic respiratory failure, ARDS secondary to coronavirus infection and MRSA pneumonia, severe sepsis, acute kidney injury, encephalopathy, review of all data and collaboration with the care team. [phone]) [id number] Critical care first hour
--- NOTE | 2019-06-17 07:26 | PCM.RX.CS ---
Consult Pharmacy has been consulted to manage selected antiobiotic: Vancomycin Type of Consult: Follow-up Suspected Infection: Sepsis Prior Doses of Antibiotics Received/Current Regimen: 2 Gm IV q12h Labs: Sodium 147 mmol/L (136-145) H 06/16/19 09:40 Potassium 3.9 mmol/L (3.5-5.1) 06/16/19 09:40 Chloride 119 mmol/L (98-107) H 06/16/19 09:40 Carbon Dioxide 25.0 mmol/L (21.0-32.0) 06/16/19 09:40 Anion Gap 3 (5-15) L 06/16/19 09:40 BUN 59 mg/dL (7-18) H 06/16/19 09:40 Creatinine 1.72 mg/dL (0.55-1.02) H 06/16/19 09:40 Est GFR (MDRD) Af Amer 39 mL/min (>60) L 06/16/19 09:40 Est GFR (MDRD) Non-Af 32 mL/min (>60) L 06/16/19 09:40 BUN/Creatinine Ratio 34.3 RATIO (10-20) H 06/16/19 09:40 Glucose 137 mg/dL (74-106) H 06/16/19 09:40 Vancomycin Trough 47.1 ug/mL (5.0-15.0) H 06/15/19 18:00 Random Vancomycin 33.1 ug/mL (0.0-15.0) H 06/17/19 03:20 Microbiology: Microbiology 06/13/19 14:47 Urine Catheter - Siddiqi Urine Culture - Final Presumptive C albicans Meth. resistant Staph. aureus Enterococcus faecalis 06/13/19 18:00 Wound - Buttock Gram Stain - Final 06/13/19 18:00 Wound - Buttock Wound Culture - Final Proteus mirabilis Meth. resistant Staph. aureus Corynebacterium amycolatum 06/14/19 12:30 Sputum, Induced/Lukens Gram Stain - Final 06/14/19 12:30 Sputum, Induced/Lukens Respiratory Culture - Final Meth. resistant Staph. aureus 06/13/19 18:00 Wound - Abdominal Gram Stain - Final 06/13/19 18:00 Wound - Abdominal Wound Culture - Final Proteus mirabilis Meth. resistant Staph. aureus Corynebacterium amycolatum 06/13/19 13:15 Blood Culture (Wb) - Anticubital Right Blood Culture - Preliminary No growth in 48 hours. 06/13/19 13:15 Blood Culture (Wb) - Left Hand Blood Culture - Preliminary No growth in 48 hours. Weight used for dosin kg Estimated Creatinine Clearance: ~41ml/min Goal Trough: 15-20 mcg/mL Pharmacy Plan for Drug Dosing: This AM's random level was still elevated at 33.1. Will hold vancomycin further dosing and get another random level in AM 4.7.20. Pharmacy Service will continue to monitor and adjust dosing as required. Follow-Up Labs: Trough Vancomycin - random level 4.7.20 0600
[2019-06-17] MEDS: Amiodarone 200 MG Tablet 400 MG GT (08:57)
[2019-06-17] MEDS: Gabapentin 100 MG Capsule 300 MG GT (08:57)
[2019-06-17] MEDS: Enoxaparin 40 MG/0.4 ML Syringe SC (08:57)
[2019-06-17] MEDS: CHLORHEXIDINE GLUC 2% CLOTH 1 EACH TOWELETTE TOPICAL (08:58)
[2019-06-17] MEDS: Chlorhexidine 15 ML PO ×2 (09:00→21:34)
[2019-06-17 09:02] LABS: Absolute Neutrophil Count 12.2 X10^3/uL (2.0-7.7); Basophil# 0.04 X10^3/uL; Basophil% 0.3 % (0-1); Eosinophil# 0.05 X10^3/uL; Eosinophils% 0.3 % (0-5); Hematocrit 32.5 % (37-47); Hemoglobin 9.5 g/dL (12.0-15.0); Lymphocyte % 9.6 % (19-41); Mean Corp Hgb Conc 29.2 g/dL (32-36); Mean Corpuscular Hgb 27.2 pg (27.0-32.0); Mean Corpuscular Volume 93.1 fL (81-99); Mean Platelet Vol. 10.6 fl (6.2-12.0); Monocyte# 0.45 X10^3/uL; Monocyte% 3.1 % (0-10); NRBC Flagged by Analyzer 0.1 % (0-5); Neutrophil # 12.23 X10^3/uL (2.7-7.7); Neutrophil % 83.8 % (47-70); Platelet Count 172 K/mm3 (150-450); RBC Distribution Width CV 18.3 % (11.6-14.6); RBC Distribution Width SD 62.4 fl (35.1-43.9); Red Blood Count 3.49 M/mm3 (4.2-5.4); White Blood Count 14.6 K/mm3 (4.4-11.0)
[2019-06-17 09:15] LABS: ALB/GLOB Ratio 0.2 RATIO (0.9-2.4); AST(SGOT) 33 U/L (15-37); Alanine Aminotransfer ALT/SGPT 26 U/L (13-56); Albumin, Serum 1.2 g/dL (3.2-5.0); Alkaline Phosphatase 165 U/L (45-117); Anion Gap 4 (5-15); BUN 91 mg/dL (7-18); BUN/Creat Ratio 38.9 RATIO (10-20); Calcium,Total 8.3 mg/dL (8.5-10.1); Chloride 117 mmol/L (98-107); Creatinine, Serum 2.34 mg/dL (0.55-1.02); EST Glomerular Filtration Rate 23 mL/min (>60); Est Glom Filt Rate - Afr Amer 27 mL/min (>60); Estimated Creatinine Clearance 22.08 ml/min; Globulin 6.1 g/dL (2.2-4.2); Glucose 133 mg/dL (74-106); Potassium 3.9 mmol/L (3.5-5.1); Protein, Total 7.3 g/dL (6.4-8.2); Sodium Level 146 mmol/L (136-145)
[2019-06-17 09:29] LABS: BNP,B-Type NATRIURETIC PEPTIDE 747.6 pg/mL (0-100)
--- NOTE | 2019-06-17 10:11 | CASEMGMT ---
Social Work Note SW participated in ICU rounds. Pt is still intubated, failed mobility. SW faxed updated clinicals to [place] [facility]. Plan: Likely return to [facility] at discharge, pt will need pre-cert to return. SW to continue to follow. Yaneth Benitez TRENCH PIPE LAYER HELPER, SHOES SALESPERSON
[2019-06-17 11:51] LABS: M R Staph aureus DNA By PCR Negative (Negative); Probe Check PASS; Specimen Processing Control PASS
--- NOTE | 2019-06-17 12:17 | PCM.CONS.R ---
Consultation - Renal 06/17/19 PCP/ Referring MD: Requesting physician: [] Primary care physician: Lai Londono MD Reason for Consultation:: abigail - History of Present Illness History of Present Illness: The patient is a 59 year old F with pmh of diabetes mellitus type 2 diet-controlled who presented with a chief complaint of gradually worsening shortness of breath for about 6 days prior to admission associated with cough. She tested initially negative for influenza but the chest x-ray showed bilateral infiltrates and she was started on Levaquin and oxygen. She had increasing oxygen requirements. His initial creatinine was 1.08. She was found to be COVID -19 31 and intubated.Her serum creatinine was 2.34 with a BUN of 91 today which prompted renal consult. Patient is intubated so review of systems cannot be obtained. Patient was also noted to be 4.5 L positive since admission. - Allergies Allergies: Allergies diltiazem Allergy (Verified 06/13/19 15:55) Swelling aripiprazole [From Abilify] Adverse Reaction (Verified 06/13/19 15:55) Anaphylaxis doxepin Adverse Reaction (Verified 06/13/19 15:55) Other doxycycline Adverse Reaction (Verified 06/13/19 15:55) Other ibuprofen [From Motrin] Adverse Reaction (Verified 06/13/19 15:55) Nausea/Vom/Diarrhea naproxen [From Naprosyn] Adverse Reaction (Verified 06/13/19 15:55) Nausea/Vom/Diarrhea prednisone Adverse Reaction (Verified 06/13/19 15:55) Other made me real mean risperidone [From Risperdal] Adverse Reaction (Verified 06/13/19 15:55) Swelling - Current Medications Current Medications: Current Medications Acetaminophen (Tylenol Liquid) 650 mg GT Q4H PRN PRN PRN Reason: TEMP > 100.5 F Last Admin: 06/17/19 08:57 Dose: 650 mg Documented by: Albuterol Sulfate (Ventolin Aerosols) 2.5 mg INHALATION Q4H PRN PRN PRN Reason: WHEEZING Last Admin: 06/16/19 19:01 Dose: 2.5 mg Documented by: Amiodarone HCl (Cordarone) 400 mg GT DAILY [facility] Last Admin: 06/17/19 08:57 Dose: 400 mg Documented by: Chlorhexidine Gluconate () 15 ml PO BID [facility] Last Admin: 06/17/19 09:00 Dose: 15 ml Documented by: Chlorhexidine Gluconate () 1 each TOPICAL DAILY [facility] Last Admin: 06/17/19 08:58 Dose: 1 each Documented by: Enoxaparin Sodium (Lovenox) 30 mg SC DAILY [facility] Famotidine (Pepcid) 20 mg GT DAILY [facility] Vancomycin IV Pharmacy to Dose (1 ea/ Sodium Chloride) 500 mls @ 250 mls/hr IV PRN PRN; Protocol PRN Reason: Rx to Dose Enteral Nutritional Formula (Vital Af 1.2 Juma Liquid) 1,000 mls @ 55 mls/hr GT .[id number] [facility] Last Admin: 06/16/19 17:58 Dose: 55 mls/hr Documented by: Ceftriaxone Sodium 2 gm/ (Sodium Chloride) 50 mls @ 100 mls/hr IV Q24 [facility] Last Infusion: 06/17/19 11:00 Dose: Infused Documented by: Loxapine Succinate (Loxapine) 25 mg GT QHS [facility] Last Admin: 06/16/19 22:44 Dose: 25 mg Documented by: Nutritional Formula (Thor - [place] Flavor) 1 packet GT BID [facility] Last Admin: 06/17/19 08:57 Dose: 1 packet Documented by: Senna/Docusate Sodium (Senokot-S, Laureen-Colace) 2 tablet GT DAILY PRN PRN PRN Reason: CONSTIPATION Sodium Chloride () 10 - 40 ml IV UD PRN PRN Reason: SALINE FLUSH - Past Medical History Past Medical History (Chronic Problems): Chronic Problems Schizophrenia (Chronic) Bipolar disorder (Chronic) Atrial fibrillation (Chronic) Hydradenitis (Chronic) Diabetes mellitus (Chronic) Hypertension (Chronic) Osteoarthritis (Chronic) Irritable bowel syndrome (Chronic) Morbid obesity (Chronic) Obstructive sleep apnea (Chronic) Post traumatic stress disorder (Chronic) - Past Surgical History Surgical History: cholecystectomy, - - Left breast abscess, right groin, thigh, abdomen abscess. Axillary, groin abscess. - Social History Smoking Status: Smoker, status unknown Alcohol: None Drugs: None - Family History Maternal History Items: No pertinent history Paternal History Items: No pertinent history Review of Systems Endocrine: Reports: - - The review of systems cannot be obtained as the patient is intubated Patient Problems: Active and Suspected Problems Severe sepsis (Acute) Acute respiratory failure with hypoxia and hypercapnia (Acute) Bilateral pneumonia (Acute) Infection due to [facility] coronavirus (Acute) - Physical Exam Vitals/I&O's: Vital Signs Temp Pulse Resp BP Pulse Ox 101.8 F H 123 H 15 115/55 L 93 06/17/19 07:00 06/17/19 08:50 06/17/19 08:50 06/17/19 07:00 06/17/19 08:50 Oxygen Flow Rate (L/min) 50 Oxygen Delivery Method Mechanical Ventilator Weight: 106.7 kg Body Mass Index (BMI) 39.4 Intake and Output for Last 24 Hours 06/15/19 06/16/19 06/17/19 23:59 23:59 23:59 Intake Total 1116.88 / 1419.38 1268.00 / 1275.50 498.75 / 498.75 Output Total 1575 / 1875 625 / 625 Balance -458.12 / -455.62 643.00 / 650.50 498.75 / 498.75 Microbiology Past 72 Hours 06/13/19 14:47 Urine Catheter - Siddiqi Urine Culture - Final Presumptive C albicans Meth. resistant Staph. aureus Enterococcus faecalis 06/13/19 18:00 Wound - Buttock Gram Stain - Final 06/13/19 18:00 Wound - Buttock Wound Culture - Final Proteus mirabilis Meth. resistant Staph. aureus Corynebacterium amycolatum 06/14/19 12:30 Sputum, Induced/Lukens Gram Stain - Final 06/14/19 12:30 Sputum, Induced/Lukens Respiratory Culture - Final Meth. resistant Staph. aureus 06/13/19 18:00 Wound - Abdominal Gram Stain - Final 06/13/19 18:00 Wound - Abdominal Wound Culture - Final Proteus mirabilis Meth. resistant Staph. aureus Corynebacterium amycolatum 06/13/19 13:15 Blood Culture (Wb) - Anticubital Right Blood Culture - Preliminary No growth in 48 hours. 06/13/19 13:15 Blood Culture (Wb) - Left Hand Blood Culture - Preliminary No growth in 48 hours. Laboratory Results 06/17/19 03:20: Random Vancomycin 33.1 H 06/17/19 08:45: WBC 14.6 H, RBC 3.49 L, Hgb 9.5 L, Hct 32.5 L, MCV 93.1, MCH 27.2, MCHC 29.2 L, RDW Std Deviation 62.4 H, RDW Coeff of Bassam 18.3 H, Plt Count 172, MPV 10.6, Immature Gran % (Auto) 2.900 H, Neut % (Auto) 83.8 H, Lymph % (Auto) 9.6 L, [place] % (Auto) 3.1, Eos % (Auto) 0.3, Baso % (Auto) 0.3, Absolute Neuts (auto) 12.2 H, Absolute Lymphs (auto) 1.40, Nucleated RBC % 0.1 06/17/19 08:45: Sodium 146 H, Potassium 3.9, Chloride 117 H, Carbon Dioxide 25.0, Anion Gap 4 L, BUN 91 H, Creatinine 2.34 H, Estim Creat Clear Calc 22.08, Est GFR (MDRD) Af Amer 27 L, Est GFR (MDRD) Non-Af 23 L, BUN/Creatinine Ratio 38.9 H, Glucose 133 H, Calcium 8.3 L, Total Bilirubin 0.20, AST 33, ALT 26, Alkaline Phosphatase 165 H, Total Protein 7.3, Albumin 1.2 L, Globulin 6.1 H, Albumin/Globulin Ratio 0.2 L 06/17/19 08:45: Ammonia 51.0 H, B-Natriuretic Peptide Cancelled 06/17/19 08:45: B-Natriuretic Peptide 747.6 H 06/17/19 09:58: Specimen Type ART, Sample Site R RADIAL, pH 7.24 L, Bicarbonate Actual 24.1, POC Total CO2 26, Base Excess -3 L, O2 Saturation 90 L, O2 % 40, ABG pCO2 56.5 H, ABG pO2 70 L, Justo Test POS, Respiration Rate 12, O2 Delivery Device Vent, Vent Mode A-C, Tidal Volume 400, POC PEEP 8, Blood Gas Notified Whom ICU , Blood Gas Notified Time 1005 06/17/19 10:20: MRSA (PCR) Negative Current Medications Acetaminophen (Tylenol Liquid) 650 mg GT Q4H PRN PRN PRN Reason: TEMP > 100.5 F Last Admin: 06/17/19 08:57 Dose: 650 mg Documented by: Albuterol Sulfate (Ventolin Aerosols) 2.5 mg INHALATION Q4H PRN PRN PRN Reason: WHEEZING Last Admin: 06/16/19 19:01 Dose: 2.5 mg Documented by: Amiodarone HCl (Cordarone) 400 mg GT DAILY [facility] Last Admin: 06/17/19 08:57 Dose: 400 mg Documented by: Chlorhexidine Gluconate () 15 ml PO BID [facility] Last Admin: 06/17/19 09:00 Dose: 15 ml Documented by: Chlorhexidine Gluconate () 1 each TOPICAL DAILY [facility] Last Admin: 06/17/19 08:58 Dose: 1 each Documented by: Enoxaparin Sodium (Lovenox) 30 mg SC DAILY [facility] Famotidine (Pepcid) 20 mg GT DAILY [facility] Vancomycin IV Pharmacy to Dose (1 ea/ Sodium Chloride) 500 mls @ 250 mls/hr IV PRN PRN; Protocol PRN Reason: Rx to Dose Enteral Nutritional Formula (Vital Af 1.2 Juma Liquid) 1,000 mls @ 55 mls/hr GT .[id number] [facility] Last Admin: 06/16/19 17:58 Dose: 55 mls/hr Documented by: Ceftriaxone Sodium 2 gm/ (Sodium Chloride) 50 mls @ 100 mls/hr IV Q24 [facility] Last Infusion: 06/17/19 11:00 Dose: Infused Documented by: Loxapine Succinate (Loxapine) 25 mg GT QHS [facility] Last Admin: 06/16/19 22:44 Dose: 25 mg Documented by: Nutritional Formula (Thor - [place] Flavor) 1 packet GT BID [facility] Last Admin: 06/17/19 08:57 Dose: 1 packet Documented by: Senna/Docusate Sodium (Senokot-S, Laureen-Colace) 2 tablet GT DAILY PRN PRN PRN Reason: CONSTIPATION Sodium Chloride () 10 - 40 ml IV UD PRN PRN Reason: SALINE FLUSH Assessment/Plan All Active Problems Perirectal abscess (Acute) Severe sepsis (Acute) Acute respiratory failure with hypoxia and hypercapnia (Acute) Bilateral pneumonia (Acute) Infection due to [place] coronavirus (Acute) ABIGAIL likely ATN and AIN with COVID-19 hypernatremia ARDS s/p intubation on vent COVID-19 Scr 2.2 worsening more prerenal and also has decreasing uop increase free water via FT Will 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 Keep MAP>65 not on pressors avoid nephrotoxins abx dosing per pharmacy Check a renal ultrasound UA and spot urine sodium and creatinine for completeness d/w daughter Rosaline Smith POA over the phone about the possible need for dialysis. Major risks and benefits of dialysis including but not limited to infection seizures stroke heart attack discussed with the daughter Rosaline Smith and she she voiced understanding and agreed to proceed with dialysis if needed. D/w dr. Torres to consider use of Tocilizumab if available.He will talk with the pharmacy Due to the current efforts to prevent transmission of COVID?19 and also the need to preserve PPE for other caregivers a [id number] encounter with the patient was not performed. That being said, all relevant records and diagnostic tests were reviewed including laboratory test and imaging. Please reference any relevant documentation elsewhere. Care will be coordinated with the primary service. Thanks for consult.Will f/u.
--- NOTE | 2019-06-17 12:33 | PCM.PN.HOSP ---
Patient Problems: Active and Suspected Problems Severe sepsis (Acute) Acute respiratory failure with hypoxia and hypercapnia (Acute) Bilateral pneumonia (Acute) Infection due to [place] coronavirus (Acute) Subjective: Intubated and sedated, she continues to have fever secondary to fluid COVID infection as well as her wound infections Vitals/I&O's: Vital Signs Temp Pulse Resp BP Pulse Ox 101.8 F H 123 H 15 115/55 L 93 06/17/19 07:00 06/17/19 08:50 06/17/19 08:50 06/17/19 07:00 06/17/19 08:50 Oxygen Flow Rate (L/min) 50 Oxygen Delivery Method Mechanical Ventilator Weight: 235 lb 3.732 oz Body Mass Index (BMI) 39.4 Intake and Output for Last 24 Hours 06/15/19 06/16/19 06/17/19 23:59 23:59 23:59 Intake Total 1116.88 / 1419.38 1268.00 / 1275.50 733.75 / 733.75 Output Total 1575 / 1875 625 / 625 Balance -458.12 / -455.62 643.00 / 650.50 733.75 / 733.75 General: - - Intubated and sedated HEENT: Atraumatic, PERRLA, Normocephalic Oral: Moist Mucosa Neck: Supple, No JVD Lungs: Clear to auscultation, No wheeze, No rales, Diminished, Rhonchi Cardiovascular: Regular rate, Regular Rhythm, Normal S1, Normal S2, No murmurs Abdomen: Soft, Non Tender, Non-Distended, No Hepato-splenomegaly Extremities: No edema, Capillary Refill Less than 3 Seconds Skin: Ulcer/ Wound - Decubitus ulcer of her buttock Neurological: - - Intubated and sedated Psych/Mental Status: - - Intubated and sedated Microbiology Past 72 Hours 06/13/19 14:47 Urine Catheter - Siddiqi Urine Culture - Final Presumptive C albicans Meth. resistant Staph. aureus Enterococcus faecalis 06/13/19 18:00 Wound - Buttock Gram Stain - Final 06/13/19 18:00 Wound - Buttock Wound Culture - Final Proteus mirabilis Meth. resistant Staph. aureus Corynebacterium amycolatum 06/14/19 12:30 Sputum, Induced/Lukens Gram Stain - Final 06/14/19 12:30 Sputum, Induced/Lukens Respiratory Culture - Final Meth. resistant Staph. aureus 06/13/19 18:00 Wound - Abdominal Gram Stain - Final 06/13/19 18:00 Wound - Abdominal Wound Culture - Final Proteus mirabilis Meth. resistant Staph. aureus Corynebacterium amycolatum 06/13/19 13:15 Blood Culture (Wb) - Anticubital Right Blood Culture - Preliminary No growth in 48 hours. 06/13/19 13:15 Blood Culture (Wb) - Left Hand Blood Culture - Preliminary No growth in 48 hours. Laboratory Results 06/17/19 03:20: Random Vancomycin 33.1 H 06/17/19 08:45: WBC 14.6 H, RBC 3.49 L, Hgb 9.5 L, Hct 32.5 L, MCV 93.1, MCH 27.2, MCHC 29.2 L, RDW Std Deviation 62.4 H, RDW Coeff of Bassam 18.3 H, Plt Count 172, MPV 10.6, Immature Gran % (Auto) 2.900 H, Neut % (Auto) 83.8 H, Lymph % (Auto) 9.6 L, [place] % (Auto) 3.1, Eos % (Auto) 0.3, Baso % (Auto) 0.3, Absolute Neuts (auto) 12.2 H, Absolute Lymphs (auto) 1.40, Nucleated RBC % 0.1 06/17/19 08:45: Sodium 146 H, Potassium 3.9, Chloride 117 H, Carbon Dioxide 25.0, Anion Gap 4 L, BUN 91 H, Creatinine 2.34 H, Estim Creat Clear Calc 22.08, Est GFR (MDRD) Af Amer 27 L, Est GFR (MDRD) Non-Af 23 L, BUN/Creatinine Ratio 38.9 H, Glucose 133 H, Calcium 8.3 L, Total Bilirubin 0.20, AST 33, ALT 26, Alkaline Phosphatase 165 H, Total Protein 7.3, Albumin 1.2 L, Globulin 6.1 H, Albumin/Globulin Ratio 0.2 L 06/17/19 08:45: Ammonia 51.0 H, B-Natriuretic Peptide Cancelled 06/17/19 08:45: B-Natriuretic Peptide 747.6 H 06/17/19 09:58: Specimen Type ART, Sample Site R RADIAL, pH 7.24 L, Bicarbonate Actual 24.1, POC Total CO2 26, Base Excess -3 L, O2 Saturation 90 L, O2 % 40, ABG pCO2 56.5 H, ABG pO2 70 L, Justo Test POS, Respiration Rate 12, O2 Delivery Device Vent, Vent Mode A-C, Tidal Volume 400, POC PEEP 8, Blood Gas Notified Whom ICU MD, Blood Gas Notified Time 1005 06/17/19 10:20: MRSA (PCR) Negative Current Medications Acetaminophen (Tylenol Liquid) 650 mg GT Q4H PRN PRN PRN Reason: TEMP > 100.5 F Last Admin: 06/17/19 08:57 Dose: 650 mg Documented by: Albuterol Sulfate (Ventolin Aerosols) 2.5 mg INHALATION Q4H PRN PRN PRN Reason: WHEEZING Last Admin: 06/16/19 19:01 Dose: 2.5 mg Documented by: Amiodarone HCl (Cordarone) 400 mg GT DAILY [facility] Last Admin: 06/17/19 08:57 Dose: 400 mg Documented by: Chlorhexidine Gluconate () 15 ml PO BID [facility] Last Admin: 06/17/19 09:00 Dose: 15 ml Documented by: Chlorhexidine Gluconate () 1 each TOPICAL DAILY [facility] Last Admin: 06/17/19 08:58 Dose: 1 each Documented by: Enoxaparin Sodium (Lovenox) 30 mg SC DAILY [facility] Famotidine (Pepcid) 20 mg GT DAILY [facility] Vancomycin IV Pharmacy to Dose (1 ea/ Sodium Chloride) 500 mls @ 250 mls/hr IV PRN PRN; Protocol PRN Reason: Rx to Dose Enteral Nutritional Formula (Vital Af 1.2 Juma Liquid) 1,000 mls @ 55 mls/hr GT .[id number] [facility] Last Admin: 06/16/19 17:58 Dose: 55 mls/hr Documented by: Ceftriaxone Sodium 2 gm/ (Sodium Chloride) 50 mls @ 100 mls/hr IV Q24 [facility] Last Infusion: 06/17/19 11:00 Dose: Infused Documented by: Loxapine Succinate (Loxapine) 25 mg GT QHS [facility] Last Admin: 06/16/19 22:44 Dose: 25 mg Documented by: Nutritional Formula (Thor - [place] Flavor) 1 packet GT BID [facility] Last Admin: 06/17/19 08:57 Dose: 1 packet Documented by: Senna/Docusate Sodium (Senokot-S, Laureen-Colace) 2 tablet GT DAILY PRN PRN PRN Reason: CONSTIPATION Sodium Chloride () 10 - 40 ml IV UD PRN PRN Reason: SALINE FLUSH STROKE Vital Signs/Narrative: Vital Signs Pulse Resp Pulse Ox 06/17/19 08:50 123 H 15 93 Medical Necessity - Tobacco Use Smoking Status: Smoker, status unknown Tobacco Use: Non-smoker Assessment/Plan All Active Problems Perirectal abscess (Acute) Severe sepsis (Acute) Acute respiratory failure with hypoxia and hypercapnia (Acute) Bilateral pneumonia (Acute) Infection due to [facility] coronavirus (Acute) 1. Acute hypoxic peripheral failure secondary to ARDS from COVID?19/severe sepsis/infected polymicrobial sacral decubitus ulcers with severe hidradenitis of the abdominal wall and perineal area/probable perirectal abscess/metabolic versus toxic encephalopathy -Continue with broad-spectrum antibiotics for her multiple polymicrobial infections, she has a urine culture with Tracey albicans, MRSA, enterococcus -Abdominal wound with Proteus, MRSA, corynebacterium -Decubitus ulcer with Proteus, MRSA, corynebacterium -Respiratory culture with MRSA -Continue with Vanco and Rocephin -still ventilated with an FiO2 of 40% and a PEEP of 8 2. ABGIAIL -We will consult to nephrology to assist with her renal function -She is almost 5 L positive -Likely ATN at this point 3. DM 2 -Does not take any medications at home, will continue to monitor -Continue sliding scale insulin 4. HTN/chronic A. fib -We will continue with her amiodarone at 400, not currently on any anticoagulation -Does not take any blood pressure medications at the [facility] 5. Bipolar disorder/schizophrenia/PTSD -We will hold her benzodiazepine but continue loxapine DVT: Lovenox Inpatient E&M: [id number] [facility] [[email or web address]] Hosp L2
--- NOTE | 2019-06-17 12:36 | US_ITS ---
STUDY: RENAL ULTRASOUND - COMPLETE REASON FOR EXAM: Female, 59 years old. ABIGAIL TECHNIQUE: Ultrasound evaluation of the kidneys was performed with real-time and static pate-scale imaging. COMPARISON: None. FINDINGS: RIGHT KIDNEY: Normal location of the right kidney, which is normal in size. The right kidney measures 12.1 cm x 5.6 cm x 6.0 cm. There is a normal cortex of the right kidney. The renal cortex measures 1.6 cm. There is no right renal mass or cyst. There are no right renal calculi. There is no right hydronephrosis. DISTAL RIGHT URETER: There is non-visualization of the distal right ureter. There is no demonstrated right ureterovesical junction calculus. There is a visualized right ureteral jet. LEFT KIDNEY: Normal location of the left kidney, which is normal in size. The left kidney measures 11.9 cm x 7.0 cm x 5.8 cm. There is a normal cortex of the left kidney. The renal cortex measures 1.7 cm. There is a 1.3 cm x 1.5 cm x 1.3 cm cyst. There are no left renal calculi. There is moderate hydronephrosis of the left kidney. DISTAL LEFT URETER: There is non-visualization of the distal left ureter. There is no demonstrated left ureterovesical junction calculus. There is a visualized left ureteral jet. BLADDER: The distended urinary bladder has a volume of 756 ml. There is a normal wall thickness of the distended urinary bladder. There is no demonstrated mass within the urinary bladder. There are no demonstrated bladder calculi. US/Kidney and Bladder IMPRESSION: 1.3 cm x 1.5 cm x 1.3 cm left renal cyst. Moderate degree of the left hydronephrosis. Distended urinary bladder. Electronically Signed: Steve Fierro, at 15:35 EDT , Service support ,
[2019-06-17] MEDS: Vital AF 1.2 Cal Liquid 1,000 ML 55 ML GT (13:45)
[2019-06-17] MEDS: Famotidine 20 MG Tablet GT (13:47)
--- NOTE | 2019-06-17 14:30 | PCM.PN.ID ---
Patient Problems: Active and Suspected Problems Severe sepsis (Acute) Acute respiratory failure with hypoxia and hypercapnia (Acute) Bilateral pneumonia (Acute) Infection due to [place] coronavirus (Acute) Subjective: On vent, still fever - Physical Exam Vitals/I&O's: Vital Signs Temp Pulse Resp BP Pulse Ox 102.7 F H 97 23 H 99/43 L 97 06/17/19 12:00 06/17/19 13:15 06/17/19 13:15 06/17/19 12:00 06/17/19 13:15 Oxygen Flow Rate (L/min) 50 Oxygen Delivery Method Mechanical Ventilator Weight: 106.7 kg Body Mass Index (BMI) 39.4 Intake and Output for Last 24 Hours 06/15/19 06/16/19 06/17/19 23:59 23:59 23:59 Intake Total 1116.88 / 1419.38 1268.00 / 1275.50 733.75 / 733.75 Output Total 1575 / 1875 625 / 625 Balance -458.12 / -455.62 643.00 / 650.50 733.75 / 733.75 General: Non-Cooperative Lungs: Diminished Cardiovascular: Regular rate, Regular Rhythm Abdomen: Soft, Non Tender, Non-Distended Skin: Ulcer/ Wound - on buttocks Microbiology Past 72 Hours 06/13/19 14:47 Urine Catheter - Siddiqi Urine Culture - Final Presumptive C albicans Meth. resistant Staph. aureus Enterococcus faecalis 06/13/19 18:00 Wound - Buttock Gram Stain - Final 06/13/19 18:00 Wound - Buttock Wound Culture - Final Proteus mirabilis Meth. resistant Staph. aureus Corynebacterium amycolatum 06/14/19 12:30 Sputum, Induced/Lukens Gram Stain - Final 06/14/19 12:30 Sputum, Induced/Lukens Respiratory Culture - Final Meth. resistant Staph. aureus 06/13/19 18:00 Wound - Abdominal Gram Stain - Final 06/13/19 18:00 Wound - Abdominal Wound Culture - Final Proteus mirabilis Meth. resistant Staph. aureus Corynebacterium amycolatum 06/13/19 13:15 Blood Culture (Wb) - Anticubital Right Blood Culture - Preliminary No growth in 48 hours. 06/13/19 13:15 Blood Culture (Wb) - Left Hand Blood Culture - Preliminary No growth in 48 hours. Laboratory Results 06/17/19 03:20: Random Vancomycin 33.1 H 06/17/19 08:45: WBC 14.6 H, RBC 3.49 L, Hgb 9.5 L, Hct 32.5 L, MCV 93.1, MCH 27.2, MCHC 29.2 L, RDW Std Deviation 62.4 H, RDW Coeff of Bassam 18.3 H, Plt Count 172, MPV 10.6, Immature Gran % (Auto) 2.900 H, Neut % (Auto) 83.8 H, Lymph % (Auto) 9.6 L, [place] % (Auto) 3.1, Eos % (Auto) 0.3, Baso % (Auto) 0.3, Absolute Neuts (auto) 12.2 H, Absolute Lymphs (auto) 1.40, Nucleated RBC % 0.1 06/17/19 08:45: Sodium 146 H, Potassium 3.9, Chloride 117 H, Carbon Dioxide 25.0, Anion Gap 4 L, BUN 91 H, Creatinine 2.34 H, Estim Creat Clear Calc 22.08, Est GFR (MDRD) Af Amer 27 L, Est GFR (MDRD) Non-Af 23 L, BUN/Creatinine Ratio 38.9 H, Glucose 133 H, Calcium 8.3 L, Total Bilirubin 0.20, AST 33, ALT 26, Alkaline Phosphatase 165 H, Total Protein 7.3, Albumin 1.2 L, Globulin 6.1 H, Albumin/Globulin Ratio 0.2 L 06/17/19 08:45: Ammonia 51.0 H, B-Natriuretic Peptide Cancelled 06/17/19 08:45: B-Natriuretic Peptide 747.6 H 06/17/19 09:58: Specimen Type ART, Sample Site R RADIAL, pH 7.24 L, Bicarbonate Actual 24.1, POC Total CO2 26, Base Excess -3 L, O2 Saturation 90 L, O2 % 40, ABG pCO2 56.5 H, ABG pO2 70 L, Justo Test POS, Respiration Rate 12, O2 Delivery Device Vent, Vent Mode A-C, Tidal Volume 400, POC PEEP 8, Blood Gas Notified Whom ICU , Blood Gas Notified Time 1005 06/17/19 10:20: MRSA (PCR) Negative Current Medications Acetaminophen (Tylenol Liquid) 650 mg GT Q4H PRN PRN PRN Reason: TEMP > 100.5 F Last Admin: 06/17/19 13:46 Dose: 650 mg Documented by: Albuterol Sulfate (Ventolin Aerosols) 2.5 mg INHALATION Q4H PRN PRN PRN Reason: WHEEZING Last Admin: 06/16/19 19:01 Dose: 2.5 mg Documented by: Amiodarone HCl (Cordarone) 400 mg GT DAILY [facility] Last Admin: 06/17/19 08:57 Dose: 400 mg Documented by: Chlorhexidine Gluconate () 15 ml PO BID [facility] Last Admin: 06/17/19 09:00 Dose: 15 ml Documented by: Chlorhexidine Gluconate () 1 each TOPICAL DAILY [facility] Last Admin: 06/17/19 08:58 Dose: 1 each Documented by: Enoxaparin Sodium (Lovenox) 30 mg SC DAILY [facility] Famotidine (Pepcid) 20 mg GT DAILY [facility] Last Admin: 06/17/19 13:47 Dose: 20 mg Documented by: Vancomycin IV Pharmacy to Dose (1 ea/ Sodium Chloride) 500 mls @ 250 mls/hr IV PRN PRN; Protocol PRN Reason: Rx to Dose Enteral Nutritional Formula (Vital Af 1.2 Juma Liquid) 1,000 mls @ 55 mls/hr GT .[id number] [facility] Last Admin: 06/17/19 13:45 Dose: 55 mls/hr Documented by: Ceftriaxone Sodium 2 gm/ (Sodium Chloride) 50 mls @ 100 mls/hr IV Q24 [facility] Last Infusion: 06/17/19 11:00 Dose: Infused Documented by: Loxapine Succinate (Loxapine) 25 mg GT QHS [facility] Last Admin: 06/16/19 22:44 Dose: 25 mg Documented by: Nutritional Formula (Thor - [place] Flavor) 1 packet GT BID [facility] Last Admin: 06/17/19 08:57 Dose: 1 packet Documented by: Senna/Docusate Sodium (Senokot-S, Laureen-Colace) 2 tablet GT DAILY PRN PRN PRN Reason: CONSTIPATION Sodium Chloride () 10 - 40 ml IV UD PRN PRN Reason: SALINE FLUSH Medical Necessity - Tobacco Use Smoking Status: Smoker, status unknown Tobacco Use: Non-smoker Route of nutrition/ use of supplements: [] Nutritional Intake: [] IV Site: [] Siddiqi Catheter: [] - Assessment/Plan Antibiotics: [] Assessment/Plan: [] Active and Suspected Problems Severe sepsis (Acute) Acute respiratory failure with hypoxia and hypercapnia (Acute) Bilateral pneumonia (Acute) Infection due to [facility] coronavirus (Acute) COVID (+), severe sepsis, acute hypoxic resp failure, decubitus wounds - on vanc/ceftriaxone. Wound cx with mrsa, proteus, corynebacteria. QTC in 02/2019 was 540, so avoiding plaquenil/azithro. Will follow
[2019-06-17 14:41] LABS: Base Excess -3 mmol/L (-2 to +2); Bicarbonate 24.1 mmol/L (22-26); PO2 70 mmHG (75-100); SO2 90 % (95-99); Total Carbon Dioxide 26 mmol/L; pCO2 56.5 mmHg (35-45); pH 7.24 (7.35-7.45)
[2019-06-17 16:32] LABS: Color, Urine Yellow (Yellow); Glucose, Dipstick Normal (Normal); Ketone-Dipstick Negative (Negative); Leukocyte Esterase-Dipstick 25 /ul (Negative); Mucous, Urine 0 SEEN /hpf (<or=2+); Nitrite-Dipstick Negative (Negative); Occult Blood-Urine 10 /ul (Negative); Protein-Dipstick 30 mg/dl (Negative); Red Blood Cells-Urine 0 SEEN /hpf (0-5); Specific Gravity, Urine 1.015 (1.002-1.030); Urine Bilirubin Dipstick Negative (Negative); Urine Clarity Sl. Cloudy (Clear); Urine Urobilinogen Normal (Normal)
[2019-06-17 16:40] LABS: Squamous Epithelial Cells - UA 0-5 SEEN /hpf (5-10); White Blood Cells 5-10 SEEN /hpf (0-5)
[2019-06-17 16:41] LABS: Bacteria 1+ /hpf (None Seen)
[2019-06-17 16:42] LABS: Yeast-Urine 2+ /hpf (None Seen)
[2019-06-17 16:48] LABS: Urine Sodium 24 mmol/L (Not Establ.)
[2019-06-17] MEDS: LOXAPINE SUCCINATE 25 MG CAPSULE GT (21:34)
[2019-06-18] VITALS (35 sets, daily range): BP systolic 91–132; BP diastolic 35–66; PULSE 94–130; RESP 15–31; TEMP 36.7–38.8; O2SAT 91–99
[2019-06-18] MEDS: Acetaminophen 650 MG/20 ML UDC GT ×3 (00:34→08:52)
[2019-06-18 05:38] LABS: Absolute Lymphocyte Count 1.84 X10^3/uL (0.83-4.51); Absolute Neutrophil Count 10.8 X10^3/uL (2.0-7.7); Basophil# 0.04 X10^3/uL; Basophil% 0.3 % (0-1); Eosinophil# 0.13 X10^3/uL; Hematocrit 31.8 % (37-47); Hemoglobin 9.4 g/dL (12.0-15.0); Lymphocyte # 1.84 X10^3/ul (4.0); Lymphocyte % 13.6 % (19-41); Mean Corp Hgb Conc 29.6 g/dL (32-36); Mean Corpuscular Hgb 26.9 pg (27.0-32.0); Mean Corpuscular Volume 91.1 fL (81-99); Mean Platelet Vol. 11.5 fl (6.2-12.0); Monocyte# 0.42 X10^3/uL; Monocyte% 3.1 % (0-10); NRBC Flagged by Analyzer 0.1 % (0-5); Neutrophil % 79.7 % (47-70); Platelet Count 152 K/mm3 (150-450); RBC Distribution Width CV 18.2 % (11.6-14.6); RBC Distribution Width SD 59.8 fl (35.1-43.9); Red Blood Count 3.49 M/mm3 (4.2-5.4); White Blood Count 13.5 K/mm3 (4.4-11.0)
[2019-06-18 05:58] LABS: Allen Test POS; Blood Gas Specimen Type ART; Mode A-C; O2 Delivery Device Vent; SITE R RADIAL
[2019-06-18 06:00] LABS: FI02 35; PEEP 8; RR 16; Time Given 526; Vt 400
[2019-06-18 06:01] LABS: Vancomycin, Random Level 30.5 ug/mL (0.0-15.0)
[2019-06-18 06:01] LABS: Base Excess -4 mmol/L (-2 to +2); Bicarbonate 22.1 mmol/L (22-26); PO2 62 mmHG (75-100); SO2 89 % (95-99); Total Carbon Dioxide 23 mmol/L; pCO2 42.7 mmHg (35-45); pH 7.32 (7.35-7.45)
[2019-06-18 06:14] LABS: Anion Gap 6 (5-15); BUN 123 mg/dL (7-18); BUN/Creat Ratio 42.1 RATIO (10-20); Chloride 117 mmol/L (98-107); Creatinine, Serum 2.92 mg/dL (0.55-1.02); EST Glomerular Filtration Rate 17 mL/min (>60); Est Glom Filt Rate - Afr Amer 21 mL/min (>60); Estimated Creatinine Clearance 17.69 ml/min; Glucose 125 mg/dL (74-106); Magnesium 2.2 mg/dL (1.6-2.6); Phosphorus 1.8 mg/dL (2.5-4.9); Sodium Level 146 mmol/L (136-145)
--- NOTE | 2019-06-18 06:33 | PN_ITS ---
Subjective: The patient was seen and examined at the bedside this morning. Events from the last 24 hours have been reviewed. The patient remains febrile with a T-max overnight of 102.4 ?F. Although the patient's respiratory parameters are slowly improving with an FiO2 requirement of 35% and PEEP of 8, she remains largely nonresponsive this morning. She has been having liquid stool as well. Chemistry profile this morning revealed an elevated BUN to 123 along with an elevated creatinine to 2.92. Phosphorus is low at 1.8. The patient is currently documented to be overall net +5.8 L for the hospital admission. Renal ultrasound completed yesterday revealed a distended urinary bladder with a moderate degree of left-sided hydronephrosis. Objective: The patient's most recent lab work, culture data and imaging studies have all been personally reviewed. Blood cultures have shown no growth to date. Urine culture was positive for MRSA and Enterococcus faecalis. Abdominal wound culture was positive for Proteus mirabilis, MRSA and Corynebacterium. Buttock wound culture was positive for Proteus mirabilis, MRSA and Corynebacterium. Sputum culture was positive for MRSA. General: - - Remains intubated and mechanically ventilated. HEENT: Atraumatic, Normocephalic Oral: No Gingival or Mucosal Lesions/ Ulcerations, - - Endotracheal and OG tubes remain in place Neck: Supple, No Nodes, Trachea Midline Lungs: No rhonchi, No wheeze, No rales, Diminished, Tachypneic Cardiovascular: Normal S1, Normal S2, No murmurs, Tachycardic Abdomen: Soft, Non Tender, Obese Extremities: No clubbing, No cyanosis, Edema Skin: Ulcer/ Wound - POA Musculoskeletal: No Muscle Wasting Vital Signs Temp Pulse Resp BP Pulse Ox 101.3 F H 103 H 16 117/50 L 95 06/18/19 06:00 06/18/19 06:00 06/18/19 06:00 06/18/19 06:00 06/18/19 06:00 Oxygen Flow Rate (L/min) 50 Oxygen Delivery Method Mechanical Ventilator Weight: 234 lb 5.622 oz Body Mass Index (BMI) 39.4 Intake and Output for Last 24 Hours 06/16/19 06/17/19 06/18/19 23:59 23:59 23:59 Intake Total 1268.00 / 1275.50 2222.75 / 2631.75 1081 / 1081 Output Total 625 / 625 1105 / 1405 450 / 450 Balance 643.00 / 650.50 1117.75 / 1226.75 631 / 631 Labs (Last 48 Hours) 06/16/19 06/16/19 06/17/19 09:40 09:40 03:20 WBC 16.4 H RBC 3.49 L Hgb 9.5 L Hct 32.4 L MCV 92.8 MCH 27.2 MCHC 29.3 L D RDW Std Deviation 60.8 H RDW Coeff of Bassam 17.9 H Plt Count 194 MPV 10.4 Immature Gran % (Auto) 2.300 H Neut % (Auto) 87.5 H Lymph % (Auto) 7.6 L [place] % (Auto) 2.3 Eos % (Auto) 0.2 Baso % (Auto) 0.1 Absolute Neuts (auto) 14.3 H Absolute Lymphs (auto) 1.25 Nucleated RBC % 0.1 Specimen Type Sample Site pH Bicarbonate Actual POC Total CO2 Base Excess O2 Saturation O2 % ABG pCO2 ABG pO2 Justo Test Respiration Rate O2 Delivery Device Liter Flow Minute Volume Vent Mode Tidal Volume POC PEEP POC Pressure Suppt Pressure High Pressure Low Time High Time Low EPAP IPAP Blood Gas Notified Whom Blood Gas Notified Time Sodium 147 H Potassium 3.9 Chloride 119 H Carbon Dioxide 25.0 Anion Gap 3 L BUN 59 H Creatinine 1.72 H Estim Creat Clear Calc 30.04 Est GFR (MDRD) Af Amer 39 L Est GFR (MDRD) Non-Af 32 L BUN/Creatinine Ratio 34.3 H Glucose 137 H Calcium 8.6 Phosphorus 2.9 Magnesium 2.0 Total Bilirubin AST ALT Alkaline Phosphatase Ammonia B-Natriuretic Peptide Total Protein Albumin Globulin Albumin/Globulin Ratio Urine Color Urine Clarity Urine pH Ur Specific [place] Urine Protein Urine Glucose (UA) Urine Ketones Urine Occult Blood Urine Nitrite Urine Bilirubin Urine Urobilinogen Ur Leukocyte Esterase Urine RBC Urine WBC Ur Squamous Epith Cells Urine Bacteria Urine Mucus Urine Yeast Ur Random Sodium Urine Creatinine Random Vancomycin 33.1 H MRSA (PCR) 06/17/19 06/17/19 06/17/19 08:45 08:45 08:45 WBC 14.6 H RBC 3.49 L Hgb 9.5 L Hct 32.5 L MCV 93.1 MCH 27.2 MCHC 29.2 L RDW Std Deviation 62.4 H RDW Coeff of Bassam 18.3 H Plt Count 172 MPV 10.6 Immature Gran % (Auto) 2.900 H Neut % (Auto) 83.8 H Lymph % (Auto) 9.6 L [place] % (Auto) 3.1 Eos % (Auto) 0.3 Baso % (Auto) 0.3 Absolute Neuts (auto) 12.2 H Absolute Lymphs (auto) 1.40 Nucleated RBC % 0.1 Specimen Type Sample Site pH Bicarbonate Actual POC Total CO2 Base Excess O2 Saturation O2 % ABG pCO2 ABG pO2 Justo Test Respiration Rate O2 Delivery Device Liter Flow Minute Volume Vent Mode Tidal Volume POC PEEP POC Pressure Suppt Pressure High Pressure Low Time High Time Low EPAP IPAP Blood Gas Notified Whom Blood Gas Notified Time Sodium 146 H Potassium 3.9 Chloride 117 H Carbon Dioxide 25.0 Anion Gap 4 L BUN 91 H Creatinine 2.34 H Estim Creat Clear Calc 22.08 Est GFR (MDRD) Af Amer 27 L Est GFR (MDRD) Non-Af 23 L BUN/Creatinine Ratio 38.9 H Glucose 133 H Calcium 8.3 L Phosphorus Magnesium Total Bilirubin 0.20 AST 33 ALT 26 Alkaline Phosphatase 165 H Ammonia 51.0 H B-Natriuretic Peptide Cancelled Total Protein 7.3 Albumin 1.2 L Globulin 6.1 H Albumin/Globulin Ratio 0.2 L Urine Color Urine Clarity Urine pH Ur Specific [place] Urine Protein Urine Glucose (UA) Urine Ketones Urine Occult Blood Urine Nitrite Urine Bilirubin Urine Urobilinogen Ur Leukocyte Esterase Urine RBC Urine WBC Ur Squamous Epith Cells Urine Bacteria Urine Mucus Urine Yeast Ur Random Sodium Urine Creatinine Random Vancomycin MRSA (PCR) 06/17/19 06/17/19 06/17/19 08:45 09:58 09:58 WBC RBC Hgb Hct MCV MCH MCHC RDW Std Deviation RDW Coeff of Bassam Plt Count MPV Immature Gran % (Auto) Neut % (Auto) Lymph % (Auto) [place] % (Auto) Eos % (Auto) Baso % (Auto) Absolute Neuts (auto) Absolute Lymphs (auto) Nucleated RBC % Specimen Type Cancelled Sample Site Cancelled pH Cancelled 7.24 L Bicarbonate Actual Cancelled 24.1 POC Total CO2 Cancelled 26 Base Excess Cancelled -3 L O2 Saturation Cancelled 90 L O2 % Cancelled ABG pCO2 Cancelled 56.5 H ABG pO2 Cancelled 70 L Justo Test Cancelled Respiration Rate Cancelled O2 Delivery Device Cancelled Liter Flow Cancelled Minute Volume Cancelled Vent Mode Cancelled Tidal Volume Cancelled POC PEEP Cancelled POC Pressure Suppt Cancelled Pressure High Cancelled Pressure Low Cancelled Time High Cancelled Time Low Cancelled EPAP Cancelled IPAP Cancelled Blood Gas Notified Whom Cancelled Blood Gas Notified Time Cancelled Sodium Potassium Chloride Carbon Dioxide Anion Gap BUN Creatinine Estim Creat Clear Calc Est GFR (MDRD) Af Amer Est GFR (MDRD) Non-Af BUN/Creatinine Ratio Glucose Calcium Phosphorus Magnesium Total Bilirubin AST ALT Alkaline Phosphatase Ammonia B-Natriuretic Peptide 747.6 H Total Protein Albumin Globulin Albumin/Globulin Ratio Urine Color Urine Clarity Urine pH Ur Specific [place] Urine Protein Urine Glucose (UA) Urine Ketones Urine Occult Blood Urine Nitrite Urine Bilirubin Urine Urobilinogen Ur Leukocyte Esterase Urine RBC Urine WBC Ur Squamous Epith Cells Urine Bacteria Urine Mucus Urine Yeast Ur Random Sodium Urine Creatinine Random Vancomycin MRSA (PCR) 06/17/19 06/17/19 06/17/19 10:20 16:20 16:20 WBC RBC Hgb Hct MCV MCH MCHC RDW Std Deviation RDW Coeff of Bassam Plt Count MPV Immature Gran % (Auto) Neut % (Auto) Lymph % (Auto) [place] % (Auto) Eos % (Auto) Baso % (Auto) Absolute Neuts (auto) Absolute Lymphs (auto) Nucleated RBC % Specimen Type Sample Site pH Bicarbonate Actual POC Total CO2 Base Excess O2 Saturation O2 % ABG pCO2 ABG pO2 Justo Test Respiration Rate O2 Delivery Device Liter Flow Minute Volume Vent Mode Tidal Volume POC PEEP POC Pressure Suppt Pressure High Pressure Low Time High Time Low EPAP IPAP Blood Gas Notified Whom Blood Gas Notified Time Sodium Potassium Chloride Carbon Dioxide Anion Gap BUN Creatinine Estim Creat Clear Calc Est GFR (MDRD) Af Amer Est GFR (MDRD) Non-Af BUN/Creatinine Ratio Glucose Calcium Phosphorus Magnesium Total Bilirubin AST ALT Alkaline Phosphatase Ammonia B-Natriuretic Peptide Total Protein Albumin Globulin Albumin/Globulin Ratio Urine Color Yellow Urine Clarity Sl. Cloudy Urine pH 6.0 Ur Specific [place] 1.015 Urine Protein 30 H Urine Glucose (UA) Normal Urine Ketones Negative Urine Occult Blood 10 H Urine Nitrite Negative Urine Bilirubin Negative Urine Urobilinogen Normal Ur Leukocyte Esterase 25 H Urine RBC 0 SEEN Urine WBC 5-10 SEEN Ur Squamous Epith Cells 0-5 SEEN Urine Bacteria 1+ Urine Mucus 0 SEEN Urine Yeast 2+ Ur Random Sodium Urine Creatinine 70.20 Random Vancomycin MRSA (PCR) Negative 06/17/19 06/18/19 06/18/19 16:20 05:00 05:00 WBC 13.5 H RBC 3.49 L Hgb 9.4 L Hct 31.8 L MCV 91.1 MCH 26.9 L MCHC 29.6 L RDW Std Deviation 59.8 H RDW Coeff of Bassam 18.2 H Plt Count 152 MPV 11.5 Immature Gran % (Auto) 2.300 H Neut % (Auto) 79.7 H Lymph % (Auto) 13.6 L [place] % (Auto) 3.1 Eos % (Auto) 1.0 Baso % (Auto) 0.3 Absolute Neuts (auto) 10.8 H Absolute Lymphs (auto) 1.84 Nucleated RBC % 0.1 Specimen Type Sample Site pH Bicarbonate Actual POC Total CO2 Base Excess O2 Saturation O2 % ABG pCO2 ABG pO2 Justo Test Respiration Rate O2 Delivery Device Liter Flow Minute Volume Vent Mode Tidal Volume POC PEEP POC Pressure Suppt Pressure High Pressure Low Time High Time Low EPAP IPAP Blood Gas Notified Whom Blood Gas Notified Time Sodium 146 H Potassium 4.0 Chloride 117 H Carbon Dioxide 23.0 Anion Gap 6 BUN 123 H* Creatinine 2.92 H Estim Creat Clear Calc 17.69 Est GFR (MDRD) Af Amer 21 L Est GFR (MDRD) Non-Af 17 L BUN/Creatinine Ratio 42.1 H Glucose 125 H Calcium 8.0 L Phosphorus 1.8 L Magnesium 2.2 Total Bilirubin AST ALT Alkaline Phosphatase Ammonia B-Natriuretic Peptide Total Protein Albumin Globulin Albumin/Globulin Ratio Urine Color Urine Clarity Urine pH Ur Specific [place] Urine Protein Urine Glucose (UA) Urine Ketones Urine Occult Blood Urine Nitrite Urine Bilirubin Urine Urobilinogen Ur Leukocyte Esterase Urine RBC Urine WBC Ur Squamous Epith Cells Urine Bacteria Urine Mucus Urine Yeast Ur Random Sodium 24 Urine Creatinine Random Vancomycin MRSA (PCR) 06/18/19 06/18/19 05:00 05:26 WBC RBC Hgb Hct MCV MCH MCHC RDW Std Deviation RDW Coeff of Bassam Plt Count MPV Immature Gran % (Auto) Neut % (Auto) Lymph % (Auto) [place] % (Auto) Eos % (Auto) Baso % (Auto) Absolute Neuts (auto) Absolute Lymphs (auto) Nucleated RBC % Specimen Type ART Sample Site R RADIAL pH 7.32 L Bicarbonate Actual 22.1 POC Total CO2 23 Base Excess -4 L O2 Saturation 89 L O2 % 35 ABG pCO2 42.7 ABG pO2 62 L Justo Test POS Respiration Rate 16 O2 Delivery Device Vent Liter Flow Minute Volume 9.70 Vent Mode A-C Tidal Volume 400 POC PEEP 8 POC Pressure Suppt Pressure High Pressure Low Time High Time Low EPAP IPAP Blood Gas Notified Whom ICU Blood Gas Notified Time 526 Sodium Potassium Chloride Carbon Dioxide Anion Gap BUN Creatinine Estim Creat Clear Calc Est GFR (MDRD) Af Amer Est GFR (MDRD) Non-Af BUN/Creatinine Ratio Glucose Calcium Phosphorus Magnesium Total Bilirubin AST ALT Alkaline Phosphatase Ammonia B-Natriuretic Peptide Total Protein Albumin Globulin Albumin/Globulin Ratio Urine Color Urine Clarity Urine pH Ur Specific [place] Urine Protein Urine Glucose (UA) Urine Ketones Urine Occult Blood Urine Nitrite Urine Bilirubin Urine Urobilinogen Ur Leukocyte Esterase Urine RBC Urine WBC Ur Squamous Epith Cells Urine Bacteria Urine Mucus Urine Yeast Ur Random Sodium Urine Creatinine Random Vancomycin 30.5 H MRSA (PCR) Microbiology 06/13/19 14:47 Urine Catheter - Siddiqi Urine Culture - Final Presumptive C albicans Meth. resistant Staph. aureus Enterococcus faecalis 06/13/19 18:00 Wound - Buttock Gram Stain - Final 06/13/19 18:00 Wound - Buttock Wound Culture - Final Proteus mirabilis Meth. resistant Staph. aureus Corynebacterium amycolatum 06/14/19 12:30 Sputum, Induced/Lukens Gram Stain - Final 06/14/19 12:30 Sputum, Induced/Lukens Respiratory Culture - Final Meth. resistant Staph. aureus 06/13/19 18:00 Wound - Abdominal Gram Stain - Final 06/13/19 18:00 Wound - Abdominal Wound Culture - Final Proteus mirabilis Meth. resistant Staph. aureus Corynebacterium amycolatum Clinical Impression(s) from Imaging Studies Chest X-Ray 06/13/19 14:30 IMPRESSION: Infiltrates in the right lung as well as in the left mid lung. Follow-up is recommended. The tip of the endotracheal tube is at 4 cm proximal to the garret. Electronically Signed: Steve Fierro, at 14:55 EDT , Service support , Hip/Pelvis X-Ray 06/13/19 14:30 IMPRESSION: Degenerative changes of both hips as well as the sacroiliac joints. Electronically Signed: Steve Sri, at 14:55 EDT , Service support , KUB X-Ray 06/13/19 14:30 IMPRESSION: The tip of the orogastric tube is seen in the distal stomach/pyloric region. Electronically Signed: Steve Sri, at 14:53 EDT , Service support , Renal Ultrasound 06/17/19 12:36 IMPRESSION: 1.3 cm x 1.5 cm x 1.3 cm left renal cyst. Moderate degree of the left hydronephrosis. Distended urinary bladder. Electronically Signed: Steve Sri, at 15:35 EDT , Service support , Medical Necessity - Tobacco Use Smoking Status: Smoker, status unknown Tobacco Use: Non-smoker Assessment/Plan All Active Problems Perirectal abscess (Acute) Severe sepsis (Acute) Acute respiratory failure with hypoxia and hypercapnia (Acute) Bilateral pneumonia (Acute) Infection due to [place] coronavirus (Acute) RECOMMENDATIONS: 1. Discontinue loxapine. Continue to withhold all sedating medications. 2. Possible need for hemodialysis given worsening uremia. Await nephrology recommendations. 3. Obtain repeat arterial blood gas. 4. Check coags. 5. Send C. difficile, given persistent fevers. 6. Continue antimicrobials per ID recommendations. 7. Continue tube feeds as ordered. 8. Continue lung protective ventilatory strategy. Wean FiO2 and PEEP to maintain oxygen saturations at or above 90%. 9. Continue appropriate ICU prophylaxis. IMPRESSIONS: 1. Acute hypoxemic respiratory failure 2/2 ARDS due to COVID-19 infection combined with MRSA Pneumonia Continue current supportive measures with invasive mechanical ventilatory support, employing a lung protective strategy, along with antimicrobials per infectious diseases recommendations. Azithromycin and Plaquenil were avoided due to prolonged QTC at baseline. Continue to wean FiO2 and PEEP to maintain oxygen saturations at or above 90%. 2. Severe sepsis secondary to COVID-19 Infection and MRSA Pneumonia Continue current supportive measures as noted above. The patient remains hemodynamically stable. 3. Acute kidney injury The patient has developed worsening renal insufficiency over the last several days. Plan to avoid diuretic therapy for now. Concern for ATN in the setting of COVID infection. The patient has become progressively uremic, which has left her an encephalopathic state. Anticipate need for hemodialysis. Will defer decision to nephrology. 4. Encephalopathy Concern for toxic metabolic encephalopathy, with underlying worsening uremia contributing. Nephrology is currently following. Anticipate possible need for hemodialysis. Continue to withhold all sedating medications. Loxapine has been discontinued. 5. Diabetes mellitus/hypertension/schizoaffective disorder/morbid obesity Complicates care, management, recovery and prognosis. Continue sliding scale insulin coverage. TIME: 37 minutes of critical care time, independent of procedures, was spent addressing the patient's acute hypoxemic respiratory failure, ARDS secondary to coronavirus infection and MRSA pneumonia, severe sepsis, acute kidney injury, encephalopathy, review of all data and collaboration with the care team. [id number] [id number] Critical care first hour
--- NOTE | 2019-06-18 07:47 | PCM.RX.CS ---
Consult Pharmacy has been consulted to manage selected antiobiotic: Vancomycin Type of Consult: Follow-up Suspected Infection: Sepsis Prior Doses of Antibiotics Received/Current Regimen: Last dose was 2gm on 06.15.19 @1840. Labs: Sodium 146 mmol/L (136-145) H 06/18/19 05:00 Potassium 4.0 mmol/L (3.5-5.1) 06/18/19 05:00 Chloride 117 mmol/L (98-107) H 06/18/19 05:00 Carbon Dioxide 23.0 mmol/L (21.0-32.0) 06/18/19 05:00 Anion Gap 6 (5-15) 06/18/19 05:00 BUN 123 mg/dL (7-18) H* 06/18/19 05:00 Creatinine 2.92 mg/dL (0.55-1.02) H 06/18/19 05:00 Est GFR (MDRD) Af Amer 21 mL/min (>60) L 06/18/19 05:00 Est GFR (MDRD) Non-Af 17 mL/min (>60) L 06/18/19 05:00 BUN/Creatinine Ratio 42.1 RATIO (10-20) H 06/18/19 05:00 Glucose 125 mg/dL (74-106) H 06/18/19 05:00 Vancomycin Trough 47.1 ug/mL (5.0-15.0) H 06/15/19 18:00 Random Vancomycin 30.5 ug/mL (0.0-15.0) H 06/18/19 05:00 Microbiology: Microbiology 06/13/19 14:47 Urine Catheter - Siddiqi Urine Culture - Final Presumptive C albicans Meth. resistant Staph. aureus Enterococcus faecalis 06/13/19 18:00 Wound - Buttock Gram Stain - Final 06/13/19 18:00 Wound - Buttock Wound Culture - Final Proteus mirabilis Meth. resistant Staph. aureus Corynebacterium amycolatum 06/14/19 12:30 Sputum, Induced/Lukens Gram Stain - Final 06/14/19 12:30 Sputum, Induced/Lukens Respiratory Culture - Final Meth. resistant Staph. aureus 06/13/19 18:00 Wound - Abdominal Gram Stain - Final 06/13/19 18:00 Wound - Abdominal Wound Culture - Final Proteus mirabilis Meth. resistant Staph. aureus Corynebacterium amycolatum 06/13/19 13:15 Blood Culture (Wb) - Anticubital Right Blood Culture - Preliminary No growth in 48 hours. 06/13/19 13:15 Blood Culture (Wb) - Left Hand Blood Culture - Preliminary No growth in 48 hours. Weight used for dosin.3 kg Estimated Creatinine Clearance: ~24ml/min Goal Trough: 15-20 mcg/mL Pharmacy Plan for Drug Dosing: Random level today was still elevated at 30.5. Continuing to hold any further dosing until level <20. Renal function continues to worsen. Cr today 2.92 with CrCl of ~24 (using adjusted body weight). Pharmacy Service will continue to monitor and adjust dosing as required. Follow-Up Labs: Trough Vancomycin - random level 0600 4.8.20
[2019-06-18 08:32] LABS: Allen Test POS; Blood Gas Specimen Type ART; Mode A-C; O2 Delivery Device Vent; SITE R RADIAL; Vt 400
[2019-06-18 08:35] LABS: FI02 40; PEEP 8; RR 12; Time Given 958
[2019-06-18] MEDS: Amiodarone 200 MG Tablet 400 MG GT (08:51)
[2019-06-18] MEDS: Enoxaparin 30 MG/0.3 ML Syringe SC (08:51)
[2019-06-18] MEDS: Vital AF 1.2 Cal Liquid 1,000 ML 55 ML GT (08:51)
[2019-06-18] MEDS: Famotidine 20 MG Tablet GT (08:51)
[2019-06-18] MEDS: 0.9% Saline Lock 10 ML Syringe IV (08:51)
[2019-06-18] MEDS: CHLORHEXIDINE GLUC 2% CLOTH 1 EACH TOWELETTE TOPICAL (08:52)
[2019-06-18] MEDS: Chlorhexidine 15 ML PO ×2 (08:53→21:00)
[2019-06-18 09:13] LABS: International Normalized Ratio 1.4; Prothrombin Time (Protime)PT. 16.6 SECONDS (11.7-14.9)
--- NOTE | 2019-06-18 10:50 | PN.ID_ITS ---
Patient Problems: Active and Suspected Problems Severe sepsis (Acute) Acute respiratory failure with hypoxia and hypercapnia (Acute) Bilateral pneumonia (Acute) Infection due to [place] coronavirus (Acute) Subjective: On vent, some diarrhea. Fever overnight. - Physical Exam Vitals/I&O's: Vital Signs Temp Pulse Resp BP Pulse Ox 100.3 F H 105 H 15 91/60 93 06/18/19 09:00 06/18/19 09:00 06/18/19 09:00 06/18/19 09:00 06/18/19 09:00 Oxygen Flow Rate (L/min) 50 Oxygen Delivery Method Mechanical Ventilator Weight: 106.3 kg Body Mass Index (BMI) 39.4 Intake and Output for Last 24 Hours 06/16/19 06/17/19 06/18/19 23:59 23:59 23:59 Intake Total 1268.00 / 1275.50 2222.75 / 2631.75 1231 / 1231 Output Total 625 / 625 1105 / 1405 450 / 450 Balance 643.00 / 650.50 1117.75 / 1226.75 781 / 781 General: Non-Cooperative Lungs: Diminished Cardiovascular: Regular rate, Regular Rhythm Abdomen: Soft, Non Tender, Non-Distended Skin: Ulcer/ Wound - unable to visualize Microbiology Past 72 Hours 06/13/19 14:47 Urine Catheter - Siddiqi Urine Culture - Final Presumptive C albicans Meth. resistant Staph. aureus Enterococcus faecalis 06/13/19 18:00 Wound - Buttock Gram Stain - Final 06/13/19 18:00 Wound - Buttock Wound Culture - Final Proteus mirabilis Meth. resistant Staph. aureus Corynebacterium amycolatum 06/14/19 12:30 Sputum, Induced/Lukens Gram Stain - Final 06/14/19 12:30 Sputum, Induced/Lukens Respiratory Culture - Final Meth. resistant Staph. aureus 06/13/19 18:00 Wound - Abdominal Gram Stain - Final 06/13/19 18:00 Wound - Abdominal Wound Culture - Final Proteus mirabilis Meth. resistant Staph. aureus Corynebacterium amycolatum 06/13/19 13:15 Blood Culture (Wb) - Anticubital Right Blood Culture - Preliminary No growth in 48 hours. 06/13/19 13:15 Blood Culture (Wb) - Left Hand Blood Culture - Preliminary No growth in 48 hours. Laboratory Results 06/17/19 09:58: Specimen Type Cancelled, Sample Site Cancelled, pH Cancelled, Bicarbonate Actual Cancelled, POC Total CO2 Cancelled, Base Excess Cancelled, O2 Saturation Cancelled, O2 % Cancelled, ABG pCO2 Cancelled, ABG pO2 Cancelled, Justo Test Cancelled, Respiration Rate Cancelled, O2 Delivery Device Cancelled, Liter Flow Cancelled, Minute Volume Cancelled, Vent Mode Cancelled, Tidal Volume Cancelled, POC PEEP Cancelled, POC Pressure Suppt Cancelled, Pressure High Cancelled, Pressure Low Cancelled, Time High Cancelled, Time Low Cancelled, EPAP Cancelled, IPAP Cancelled, Blood Gas Notified Whom Cancelled, Blood Gas Notified Time Cancelled 06/17/19 09:58: Specimen Type ART, Sample Site R RADIAL, pH 7.24 L, Bicarbonate Actual 24.1, POC Total CO2 26, Base Excess -3 L, O2 Saturation 90 L, O2 % 40, ABG pCO2 56.5 H, ABG pO2 70 L, Justo Test POS, Respiration Rate 12, O2 Delivery Device Vent, Vent Mode A-C, Tidal Volume 400, POC PEEP 8, Blood Gas Notified Whom ICU , Blood Gas Notified Time 958 06/17/19 10:20: MRSA (PCR) Negative 06/17/19 16:20: Urine Creatinine 70.20 06/17/19 16:20: Urine Color Yellow, Urine Clarity Sl. Cloudy, Urine pH 6.0, Ur Specific [place] 1.015, Urine Protein 30 H, Urine Glucose (UA) Normal, Urine Ketones Negative, Urine Occult Blood 10 H, Urine Nitrite Negative, Urine Bilirubin Negative, Urine Urobilinogen Normal, Ur Leukocyte Esterase 25 H, Urine RBC 0 SEEN, Urine WBC 5-10 SEEN, Ur Squamous Epith Cells 0-5 SEEN, Urine Bacteria 1+, Urine Mucus 0 SEEN, Urine Yeast 2+ 06/17/19 16:20: Ur Random Sodium 24 06/18/19 05:00: WBC 13.5 H, RBC 3.49 L, Hgb 9.4 L, Hct 31.8 L, MCV 91.1, MCH 26.9 L, MCHC 29.6 L, RDW Std Deviation 59.8 H, RDW Coeff of Bassam 18.2 H, Plt Coun t 152, MPV 11.5, Immature Gran % (Auto) 2.300 H, Neut % (Auto) 79.7 H, Lymph % (Auto) 13.6 L, [place] % (Auto) 3.1, Eos % (Auto) 1.0, Baso % (Auto) 0.3, Absolute Neuts (auto) 10.8 H, Absolute Lymphs (auto) 1.84, Nucleated RBC % 0.1 06/18/19 05:00: Sodium 146 H, Potassium 4.0, Chloride 117 H, Carbon Dioxide 23.0, Anion Gap 6, BUN 123 H*, Creatinine 2.92 H, Estim Creat Clear Calc 17.69, Est GFR (MDRD) Af Amer 21 L, Est GFR (MDRD) Non-Af 17 L, BUN/Creatinine Ratio 42.1 H, Glucose 125 H, Calcium 8.0 L, Phosphorus 1.8 L, Magnesium 2.2 06/18/19 05:00: Random Vancomycin 30.5 H 06/18/19 05:26: Specimen Type ART, Sample Site R RADIAL, pH 7.32 L, Bicarbonate Actual 22.1, POC Total CO2 23, Base Excess -4 L, O2 Saturation 89 L, O2 % 35, ABG pCO2 42.7, ABG pO2 62 L, Justo Test POS, Respiration Rate 16, O2 Delivery Device Vent, Minute Volume 9.70, Vent Mode A-C, Tidal Volume 400, POC PEEP 8, Blood Gas Notified Whom ICU MD, Blood Gas Notified Time 526 06/18/19 09:00: PT 16.6 H, INR 1.4 Current Medications Acetaminophen (Tylenol Liquid) 650 mg GT Q4H PRN PRN PRN Reason: TEMP > 100.5 F Last Admin: 06/18/19 08:52 Dose: 650 mg Documented by: Albuterol Sulfate (Ventolin Aerosols) 2.5 mg INHALATION Q4H PRN PRN PRN Reason: WHEEZING Last Admin: 06/16/19 19:01 Dose: 2.5 mg Documented by: Amiodarone HCl (Cordarone) 400 mg GT DAILY [facility] Last Admin: 06/18/19 08:51 Dose: 400 mg Documented by: Chlorhexidine Gluconate () 15 ml PO BID [facility] Last Admin: 06/18/19 08:53 Dose: 15 ml Documented by: Chlorhexidine Gluconate () 1 each TOPICAL DAILY [facility] Last Admin: 06/18/19 08:52 Dose: 1 each Documented by: Enoxaparin Sodium (Lovenox) 30 mg SC DAILY [facility] Last Admin: 06/18/19 08:51 Dose: 30 mg Documented by: Famotidine (Pepcid) 20 mg GT DAILY [facility] Last Admin: 06/18/19 08:51 Dose: 20 mg Documented by: Vancomycin IV Pharmacy to Dose (1 ea/ Sodium Chloride) 500 mls @ 250 mls/hr IV PRN PRN; Protocol PRN Reason: Rx to Dose Enteral Nutritional Formula (Vital Af 1.2 Juma Liquid) 1,000 mls @ 55 mls/hr GT .[id number] [facility] Last Admin: 06/18/19 08:51 Dose: 55 mls/hr Documented by: Ceftriaxone Sodium 2 gm/ (Sodium Chloride) 50 mls @ 100 mls/hr IV Q24 [facility] Last Infusion: 06/17/19 11:00 Dose: Infused Documented by: Nutritional Formula (Thor - [place] Flavor) 1 packet GT BID [facility] Last Admin: 06/18/19 08:51 Dose: 1 packet Documented by: Senna/Docusate Sodium (Senokot-S, Laureen-Colace) 2 tablet GT DAILY PRN PRN PRN Reason: CONSTIPATION Sodium Chloride () 10 - 40 ml IV UD PRN PRN Reason: SALINE FLUSH Last Admin: 06/18/19 08:51 Dose: 20 ml Documented by: Medical Necessity - Tobacco Use Smoking Status: Smoker, status unknown Tobacco Use: Non-smoker Route of nutrition/ use of supplements: [] Nutritional Intake: [] IV Site: [] Siddiqi Catheter: [] - Assessment/Plan Antibiotics: [] Assessment/Plan: [] Active and Suspected Problems Severe sepsis (Acute) Acute respiratory failure with hypoxia and hypercapnia (Acute) Bilateral pneumonia (Acute) Infection due to [place] coronavirus (Acute) COVID (+), severe sepsis, acute hypoxic resp failure, decubitus wounds - on vanc/ceftriaxone. Wound cx with mrsa, proteus, corynebacteria. QTC in 02/2019 was 540, so avoiding plaquenil/azithro. Still with fever, hypotension. Cdiff pending. Will follow, D/w Dr. Torres
[2019-06-18 11:48] LABS: Anion Gap 6 (5-15); BUN 133 mg/dL (7-18); BUN/Creat Ratio 43.5 RATIO (10-20); Calcium,Total 8.2 mg/dL (8.5-10.1); Chloride 116 mmol/L (98-107); Creatinine, Serum 3.06 mg/dL (0.55-1.02); EST Glomerular Filtration Rate 17 mL/min (>60); Est Glom Filt Rate - Afr Amer 20 mL/min (>60); Estimated Creatinine Clearance 16.88 ml/min; Glucose 134 mg/dL (74-106); Sodium Level 146 mmol/L (136-145)
--- NOTE | 2019-06-18 12:30 | PN.RENAL_ITS ---
Patient Problems: Active and Suspected Problems Severe sepsis (Acute) Acute respiratory failure with hypoxia and hypercapnia (Acute) Bilateral pneumonia (Acute) Infection due to [place] coronavirus (Acute) Subjective: intubated ROS cannot be done - Physical Exam Vitals/I&O's: Vital Signs Temp Pulse Resp BP Pulse Ox 99.7 F H 102 H 18 114/51 L 91 06/18/19 12:00 06/18/19 12:00 06/18/19 12:00 06/18/19 12:00 06/18/19 12:00 Oxygen Flow Rate (L/min) 50 Oxygen Delivery Method Mechanical Ventilator Weight: 106.3 kg Body Mass Index (BMI) 39.4 Intake and Output for Last 24 Hours 06/16/19 06/17/19 06/18/19 23:59 23:59 23:59 Intake Total 1268.00 / 1275.50 2222.75 / 2631.75 1431 / 1431 Output Total 625 / 625 1105 / 1405 650 / 650 Balance 643.00 / 650.50 1117.75 / 1226.75 781 / 781 Comment: deferred to conserve PPE Microbiology Past 72 Hours 06/13/19 14:47 Urine Catheter - Siddiqi Urine Culture - Final Presumptive C albicans Meth. resistant Staph. aureus Enterococcus faecalis 06/13/19 18:00 Wound - Buttock Gram Stain - Final 06/13/19 18:00 Wound - Buttock Wound Culture - Final Proteus mirabilis Meth. resistant Staph. aureus Corynebacterium amycolatum 06/14/19 12:30 Sputum, Induced/Lukens Gram Stain - Final 06/14/19 12:30 Sputum, Induced/Lukens Respiratory Culture - Final Meth. resistant Staph. aureus 06/13/19 18:00 Wound - Abdominal Gram Stain - Final 06/13/19 18:00 Wound - Abdominal Wound Culture - Final Proteus mirabilis Meth. resistant Staph. aureus Corynebacterium amycolatum 06/13/19 13:15 Blood Culture (Wb) - Anticubital Right Blood Culture - Preliminary No growth in 48 hours. 06/13/19 13:15 Blood Culture (Wb) - Left Hand Blood Culture - Preliminary No growth in 48 hours. Laboratory Results 06/17/19 09:58: Specimen Type Cancelled, Sample Site Cancelled, pH Cancelled, Bicarbonate Actual Cancelled, POC Total CO2 Cancelled, Base Excess Cancelled, O2 Saturation Cancelled, O2 % Cancelled, ABG pCO2 Cancelled, ABG pO2 Cancelled, Justo Test Cancelled, Respiration Rate Cancelled, O2 Delivery Device Cancelled, Liter Flow Cancelled, Minute Volume Cancelled, Vent Mode Cancelled, Tidal Volume Cancelled, POC PEEP Cancelled, POC Pressure Suppt Cancelled, Pressure High Cance lled, Pressure Low Cancelled, Time High Cancelled, Time Low Cancelled, EPAP Cancelled, IPAP Cancelled, Blood Gas Notified Whom Cancelled, Blood Gas Notified Time Cancelled 06/17/19 09:58: Specimen Type ART, Sample Site R RADIAL, pH 7.24 L, Bicarbonate Actual 24.1, POC Total CO2 26, Base Excess -3 L, O2 Saturation 90 L, O2 % 40, ABG pCO2 56.5 H, ABG pO2 70 L, Justo Test POS, Respiration Rate 12, O2 Delivery Device Vent, Vent Mode A-C, Tidal Volume 400, POC PEEP 8, Blood Gas Notified Whom ICU MD, Blood Gas Notified Time 958 06/17/19 16:20: Urine Creatinine 70.20 06/17/19 16:20: Urine Color Yellow, Urine Clarity Sl. Cloudy, Urine pH 6.0, Ur Specific [place] 1.015, Urine Protein 30 H, Urine Glucose (UA) Normal, Urine Ketones Negative, Urine Occult Blood 10 H, Urine Nitrite Negative, Urine Bilirubin Negative, Urine Urobilinogen Normal, Ur Leukocyte Esterase 25 H, Urine RBC 0 SEEN, Urine WBC 5-10 SEEN, Ur Squamous Epith Cells 0-5 SEEN, Urine Bacteria 1+, Urine Mucus 0 SEEN, Urine Yeast 2+ 06/17/19 16:20: Ur Random Sodium 24 06/18/19 05:00: WBC 13.5 H, RBC 3.49 L, Hgb 9.4 L, Hct 31.8 L, MCV 91.1, MCH 26.9 L, MCHC 29.6 L, RDW Std Deviation 59.8 H, RDW Coeff of Bassam 18.2 H, Plt Count 152, MPV 11.5, Immature Gran % (Auto) 2.300 H, Neut % (Auto) 79.7 H, Lymph % (Auto) 13.6 L, [place] % (Auto) 3.1, Eos % (Auto) 1.0, Baso % (Auto) 0.3, Absolute Neuts (auto) 10.8 H, Absolute Lymphs (auto) 1.84, Nucleated RBC % 0.1 06/18/19 05:00: Sodium 146 H, Potassium 4.0, Chloride 117 H, Carbon Dioxide 23.0, Anion Gap 6, BUN 123 H*, Creatinine 2.92 H, Estim Creat Clear Calc 17.69, Est GFR (MDRD) Af Amer 21 L, Est GFR (MDRD) Non-Af 17 L, BUN/Creatinine Ratio 42.1 H, Glucose 125 H, Calcium 8.0 L, Phosphorus 1.8 L, Magnesium 2.2 06/18/19 05:00: Random Vancomycin 30.5 H 06/18/19 05:26: Specimen Type ART, Sample Site R RADIAL, pH 7.32 L, Bicarbonate Actual 22.1, POC Total CO2 23, Base Excess -4 L, O2 Saturation 89 L, O2 % 35, ABG pCO2 42.7, ABG pO2 62 L, Justo Test POS, Respiration Rate 16, O2 Delivery Device Vent, Minute Volume 9.70, Vent Mode A-C, Tidal Volume 400, POC PEEP 8, Blood Gas Notified Whom ICU MD, Blood Gas Notified Time 526 06/18/19 09:00: PT 16.6 H, INR 1.4 06/18/19 11:15: Sodium 146 H, Potassium 4.0, Chloride 116 H, Carbon Dioxide 24.0, Anion Gap 6, BUN 133 H*, Creatinine 3.06 H, Estim Creat Clear Calc 16.88, Est GFR (MDRD) Af Amer 20 L, Est GFR (MDRD) Non-Af 17 L, BUN/Creatinine Ratio 43.5 H, Glucose 134 H, Calcium 8.2 L Current Medications Acetaminophen (Tylenol Liquid) 650 mg GT Q4H PRN PRN PRN Reason: TEMP > 100.5 F Last Admin: 06/18/19 08:52 Dose: 650 mg Documented by: Albuterol Sulfate (Ventolin Aerosols) 2.5 mg INHALATION Q4H PRN PRN PRN Reason: WHEEZING Last Admin: 06/16/19 19:01 Dose: 2.5 mg Documented by: Amiodarone HCl (Cordarone) 400 mg GT DAILY [facility] Last Admin: 06/18/19 08:51 Dose: 400 mg Documented by: Chlorhexidine Gluconate () 15 ml PO BID [facility] Last Admin: 06/18/19 08:53 Dose: 15 ml Documented by: Chlorhexidine Gluconate () 1 each TOPICAL DAILY [facility] Last Admin: 06/18/19 08:52 Dose: 1 each Documented by: Enoxaparin Sodium (Lovenox) 30 mg SC DAILY [facility] Last Admin: 06/18/19 08:51 Dose: 30 mg Documented by: Famotidine (Pepcid) 20 mg GT DAILY [facility] Last Admin: 06/18/19 08:51 Dose: 20 mg Documented by: Vancomycin IV Pharmacy to Dose (1 ea/ Sodium Chloride) 500 mls @ 250 mls/hr IV PRN PRN; Protocol PRN Reason: Rx to Dose Enteral Nutritional Formula (Vital Af 1.2 Juma Liquid) 1,000 mls @ 55 mls/hr GT .[id number] [facility] Last Admin: 06/18/19 08:51 Dose: 55 mls/hr Documented by: Ceftriaxone Sodium 2 gm/ (Sodium Chloride) 50 mls @ 100 mls/hr IV Q24 [facility] Last Infusion: 06/18/19 11:00 Dose: Infused Documented by: Nutritional Formula (Thor - [place] Flavor) 1 packet GT BID [facility] Last Admin: 06/18/19 08:51 Dose: 1 packet Documented by: Senna/Docusate Sodium (Senokot-S, Laureen-Colace) 2 tablet GT DAILY PRN PRN PRN Reason: CONSTIPATION Sodium Chloride () 10 - 40 ml IV UD PRN PRN Reason: SALINE FLUSH Last Admin: 06/18/19 08:51 Dose: 20 ml Documented by: Medical Necessity - Tobacco Use Smoking Status: Smoker, status unknown Tobacco Use: Non-smoker Assessment/Plan All Active Problems Perirectal abscess (Acute) Severe sepsis (Acute) Acute respiratory failure with hypoxia and hypercapnia (Acute) Bilateral pneumonia (Acute) Infection due to [place] coronavirus (Acute) ABIGAIL likely ATN and AIN with COVID-19 and vanco toxicity hypernatremia ARDS s/p intubation on vent COVID-19 Scr 3 worsening more prerenal BUN 130's and also has decreasing uop despite flushes of Siddiqi catheter continue free water via FT increase to 200 q4 hours if tolerated SNa 146 stable Will initiate [employer] if the family agrees. The hospitalist discussed with the daughter and now the family is deciding if they want to proceed with further medical care or just comfort care. As per nurse who talked to the hospitalist we are awaiting family decision regarding further care including dialysis. Until the family decides we will hold on placing a dialysis catheter. Keep MAP>65 avoid nephrotoxins abx dosing per pharmacy vanco level still 30 rec level <20 Get a urology consult for the moderate left-sided hydronephrosis d/w RN Due to the current efforts to prevent transmission of COVID?19 and also the need to preserve PPE for other caregivers a [id number] encounter with the patient was not performed. That being said, all relevant records and diagnostic tests were reviewed including laboratory test and imaging. Please reference any relevant documentation elsewhere. Care will be coordinated with the primary service.
--- NOTE | 2019-06-18 12:30 | CASEMGMT ---
Social Work Note SW participated in ICU rounds. Pt is still intubated, failed mobility. SW faxed updated clinicals to [facility]. Plan: Likely return to [facility] at discharge, pt will need pre-cert to return. SW to continue to follow. Yaneth Benitez [employer]OUNT DIRECTOR, [employer]
--- NOTE | 2019-06-18 14:06 | PN_ITS ---
Patient Problems: Active and Suspected Problems Severe sepsis (Acute) Acute respiratory failure with hypoxia and hypercapnia (Acute) Bilateral pneumonia (Acute) Infection due to [place] coronavirus (Acute) Subjective: Intubated but not on any medications for sedation and will not respond Vitals/I&O's: Vital Signs Temp Pulse Resp BP Pulse Ox 99.7 F H 96 20 H 122/48 H 93 06/18/19 12:00 06/18/19 13:00 06/18/19 13:00 06/18/19 13:00 06/18/19 13:00 Oxygen Flow Rate (L/min) 50 Oxygen Delivery Method Mechanical Ventilator Weight: 234 lb 5.622 oz Body Mass Index (BMI) 39.4 Intake and Output for Last 24 Hours 06/16/19 06/17/19 06/18/19 23:59 23:59 23:59 Intake Total 1268.00 / 1275.50 2222.75 / 2631.75 1431 / 1431 Output Total 625 / 625 1105 / 1405 650 / 650 Balance 643.00 / 650.50 1117.75 / 1226.75 781 / 781 General: - - Intubated and sedated HEENT: Atraumatic, PERRLA, Normocephalic Oral: Moist Mucosa Neck: Supple, No JVD Lungs: Clear to auscultation, No wheeze, No rales, Diminished, Rhonchi Cardiovascular: Regular rate, Regular Rhythm, Normal S1, Normal S2, No murmurs Abdomen: Soft, Non Tender, Non-Distended, No Hepato-splenomegaly Extremities: No edema, Capillary Refill Less than 3 Seconds Skin: Ulcer/ Wound - Decubitus ulcer of her buttock Neurological: - - Intubated and sedated Psych/Mental Status: - - Intubated and sedated Microbiology Past 72 Hours 06/13/19 13:15 Blood Culture (Wb) - Left Hand Blood Culture - Final No growth in 5 days. 06/13/19 13:15 Blood Culture (Wb) - Anticubital Right Blood Culture - Final No growth in 5 days. 06/18/19 09:00 Stool C. difficile DNA Amplification - Final 06/13/19 14:47 Urine Catheter - Siddiqi Urine Culture - Final Presumptive C albicans Meth. resistant Staph. aureus Enterococcus faecalis 06/13/19 18:00 Wound - Buttock Gram Stain - Final 06/13/19 18:00 Wound - Buttock Wound Culture - Final Proteus mirabilis Meth. resistant Staph. aureus Corynebacterium amycolatum 06/14/19 12:30 Sputum, Induced/Lukens Gram Stain - Final 06/14/19 12:30 Sputum, Induced/Lukens Respiratory Culture - Final Meth. resistant Staph. aureus 06/13/19 18:00 Wound - Abdominal Gram Stain - Final 06/13/19 18:00 Wound - Abdominal Wound Culture - Final Proteus mirabilis Meth. resistant Staph. aureus Corynebacterium amycolatum Laboratory Results 06/17/19 09:58: Specimen Type Cancelled, Sample Site Cancelled, pH Cancelled, Bicarbonate Actual Cancelled, POC Total CO2 Cancelled, Base Excess Cancelled, O2 Saturation Cancelled, O2 % Cancelled, ABG pCO2 Cancelled, ABG pO2 Cancelled, Justo Test Cancelled, Respiration Rate Cancelled, O2 Delivery Device Cancelled, Liter Flow Cancelled, Minute Volume Cancelled, Vent Mode Cancelled, Tidal Volume Cancelled, POC PEEP Cancelled, POC Pressure Suppt Cancelled, Pressure High Cancelled, Pressure Low Cancelled, Time High Cancelled, Time Low Cancelled, EPAP Cancelled, IPAP Cancelled, Blood Gas Notified Whom Cancelled, Blood Gas Notified Time Cancelled 06/17/19 09:58: Specimen Type ART, Sample Site R RADIAL, pH 7.24 L, Bicarbonate Actual 24.1, POC Total CO2 26, Base Excess -3 L, O2 Saturation 90 L, O2 % 40, ABG pCO2 56.5 H, ABG pO2 70 L, Justo Test POS, Respiration Rate 12, O2 Delivery Device Vent, Vent Mode A-C, Tidal Volume 400, POC PEEP 8, Blood Gas Notified Whom ICU , Blood Gas Notified Time 958 06/17/19 16:20: Urine Creatinine 70.20 06/17/19 16:20: Urine Color Yellow, Urine Clarity Sl. Cloudy, Urine pH 6.0, Ur Specific [place] 1.015, Urine Protein 30 H, Urine Glucose (UA) Normal, Urine Ketones Negative, Urine Occult Blood 10 H, Urine Nitrite Negative, Urine Bilirubin Negative, Urine Urobilinogen Normal, Ur Leukocyte Esterase 25 H, Urine RBC 0 SEEN, Urine WBC 5-10 SEEN, Ur Squamous Epith Cells 0-5 SEEN, Urine Bacteria 1+, Urine Mucus 0 SEEN, Urine Yeast 2+ 06/17/19 16:20: Ur Random Sodium 24 06/18/19 05:00: WBC 13.5 H, RBC 3.49 L, Hgb 9.4 L, Hct 31.8 L, MCV 91.1, MCH 26.9 L, MCHC 29.6 L, RDW Std Deviation 59.8 H, RDW Coeff of Bassam 18.2 H, Plt Count 152, MPV 11.5, Immature Gran % (Auto) 2.300 H, Neut % (Auto) 79.7 H, Lymph % (Auto) 13.6 L, [place] % (Auto) 3.1, Eos % (Auto) 1.0, Baso % (Auto) 0.3, Absolute Neuts (auto) 10.8 H, Absolute Lymphs (auto) 1.84, Nucleated RBC % 0.1 06/18/19 05:00: Sodium 146 H, Potassium 4.0, Chloride 117 H, Carbon Dioxide 23.0, Anion Gap 6, BUN 123 H*, Creatinine 2.92 H, Estim Creat Clear Calc 17.69, Est GFR (MDRD) Af Amer 21 L, Est GFR (MDRD) Non-Af 17 L, BUN/Creatinine Ratio 42.1 H, Glucose 125 H, Calcium 8.0 L, Phosphorus 1.8 L, Magnesium 2.2 06/18/19 05:00: Random Vancomycin 30.5 H 06/18/19 05:26: Specimen Type ART, Sample Site R RADIAL, pH 7.32 L, Bicarbonate Actual 22.1, POC Total CO2 23, Base Excess -4 L, O2 Saturation 89 L, O2 % 35, ABG pCO2 42.7, ABG pO2 62 L, Justo Test POS, Respiration Rate 16, O2 Delivery Device Vent, Minute Volume 9.70, Vent Mode A-C, Tidal Volume 400, POC PEEP 8, Blood Gas Notified Whom ICU , Blood Gas Notified Time 526 06/18/19 09:00: PT 16.6 H, INR 1.4 06/18/19 11:15: Sodium 146 H, Potassium 4.0, Chloride 116 H, Carbon Dioxide 24.0, Anion Gap 6, BUN 133 H*, Creatinine 3.06 H, Estim Creat Clear Calc 16.88, Est GFR (MDRD) Af Amer 20 L, Est GFR (MDRD) Non-Af 17 L, BUN/Creatinine Ratio 43.5 H, Glucose 134 H, Calcium 8.2 L Current Medications Acetaminophen (Tylenol Liquid) 650 mg GT Q4H PRN PRN PRN Reason: TEMP > 100.5 F Last Admin: 06/18/19 08:52 Dose: 650 mg Documented by: Albuterol Sulfate (Ventolin Aerosols) 2.5 mg INHALATION Q4H PRN PRN PRN Reason: WHEEZING Last Admin: 06/16/19 19:01 Dose: 2.5 mg Documented by: Amiodarone HCl (Cordarone) 400 mg GT DAILY [facility] Last Admin: 06/18/19 08:51 Dose: 400 mg Documented by: Chlorhexidine Gluconate () 15 ml PO BID [facility] Last Admin: 06/18/19 08:53 Dose: 15 ml Documented by: Chlorhexidine Gluconate () 1 each TOPICAL DAILY [facility] Last Admin: 06/18/19 08:52 Dose: 1 each Documented by: Enoxaparin Sodium (Lovenox) 30 mg SC DAILY [facility] Last Admin: 06/18/19 08:51 Dose: 30 mg Documented by: Famotidine (Pepcid) 20 mg GT DAILY [facility] Last Admin: 06/18/19 08:51 Dose: 20 mg Documented by: Vancomycin IV Pharmacy to Dose (1 ea/ Sodium Chloride) 500 mls @ 250 mls/hr IV PRN PRN; Protocol PRN Reason: Rx to Dose Enteral Nutritional Formula (Vital Af 1.2 Juma Liquid) 1,000 mls @ 55 mls/hr GT .[id number] [facility] Last Admin: 06/18/19 08:51 Dose: 55 mls/hr Documented by: Ceftriaxone Sodium 2 gm/ (Sodium Chloride) 50 mls @ 100 mls/hr IV Q24 [facility] Last Infusion: 06/18/19 11:00 Dose: Infused Documented by: Nutritional Formula (Thor - [place]orest Flavor) 1 packet GT BID [facility] Last Admin: 06/18/19 08:51 Dose: 1 packet Documented by: Senna/Docusate Sodium (Senokot-S, Laureen-Colace) 2 tablet GT DAILY PRN PRN PRN Reason: CONSTIPATION Sodium Chloride () 10 - 40 ml IV UD PRN PRN Reason: SALINE FLUSH Last Admin: 06/18/19 08:51 Dose: 20 ml Documented by: STROKE Vital Signs/Narrative: Vital Signs Temp Pulse Resp BP BP Pulse Ox 06/18/19 13:00 96 20 H 122/48 H 93 06/18/19 12:00 99.7 F H 102 H 18 114/51 L 91 06/18/19 11:50 98 27 H 94 06/18/19 11:00 102 H 17 110/46 L 95 06/18/19 10:30 102 H 27 H 98 Medical Necessity - Tobacco Use Smoking Status: Smoker, status unknown Tobacco Use: Non-smoker Assessment/Plan All Active Problems Perirectal abscess (Acute) Severe sepsis (Acute) Acute respiratory failure with hypoxia and hypercapnia (Acute) Bilateral pneumonia (Acute) Infection due to [facility] coronavirus (Acute) 1. Acute hypoxic peripheral failure secondary to ARDS from COVID?19/severe sepsis/infected polymicrobial sacral decubitus ulcers with severe hidradenitis of the abdominal wall and perineal area/probable perirectal abscess/metabolic versus toxic encephalopathy -Continue with broad-spectrum antibiotics for her multiple polymicrobial infections, she has a urine culture with Tracey albicans, MRSA, enterococcus -Abdominal wound with Proteus, MRSA, corynebacterium -Decubitus ulcer with Proteus, MRSA, corynebacterium -Respiratory culture with MRSA -Continue with Vanco and Rocephin -still ventilated with an FiO2 of 35% and a PEEP of 8 -C. difficile test was negative 2. ABIGAIL -We will consult to nephrology to assist with her renal function -She is 6 L positive -Likely ATN at this point -Did discuss with the daughter that we may need to proceed with dialysis however I did have a 20-minute discussion with her on advanced care planning and CODE STATUS she said that she would like to discuss the situation with her aunt and her brother and would call us back. 3. DM 2 -Does not take any medications at home, will continue to monitor -Continue sliding scale insulin 4. HTN/chronic A. fib -We will continue with her amiodarone at 400, not currently on any anticoagulation -Does not take any blood pressure medications at the [facility] 5. Bipolar disorder/schizophrenia/PTSD -We will hold her benzodiazepine and loxapine DVT: Lovenox Inpatient E&M: 45456 Subs Hosp L2 Procedures: 49540 Advncd Care Plan 30 Min
--- NOTE | 2019-06-18 14:37 | CON.PCM_ITS ---
Reason for Consult Date of Consultation: 06/18/19 Reason for Consultation: Left mild to moderate hydronephrosis History of Present Illness: Patient is 59-year-old female presented to the hospital with acute respiratory distress and dyspnea and was intubated in the emergency room transferred to the ICU is positive for coronavirus. She had progressive deterioration in her overall condition now her creatinine to the 3.06. Ultrasound was done at demonstrated a distended bladder and catheter likely plug. Most likely having some reflux on the left side could she has some mild to moderate hydronephrosis in the left kidney no hydronephrosis in the right kidney. She did have a CAT sc an done in February the demonstrated no stones, UPJ or other blockages. Past Medical History Past Medical History (Chronic Problems): Chronic Problems Schizophrenia (Chronic) Bipolar disorder (Chronic) Atrial fibrillation (Chronic) Hydradenitis (Chronic) Diabetes mellitus (Chronic) Hypertension (Chronic) Osteoarthritis (Chronic) Irritable bowel syndrome (Chronic) Morbid obesity (Chronic) Obstructive sleep apnea (Chronic) Post traumatic stress disorder (Chronic) Allergies diltiazem Allergy (Verified 06/13/19 15:55) Swelling aripiprazole [From Abilify] Adverse Reaction (Verified 06/13/19 15:55) Anaphylaxis doxepin Adverse Reaction (Verified 06/13/19 15:55) Other doxycycline Adverse Reaction (Verified 06/13/19 15:55) Other ibuprofen [From Motrin] Adverse Reaction (Verified 06/13/19 15:55) Nausea/Vom/Diarrhea naproxen [From Naprosyn] Adverse Reaction (Verified 06/13/19 15:55) Nausea/Vom/Diarrhea prednisone Adverse Reaction (Verified 06/13/19 15:55) Other made me real mean risperidone [From Risperdal] Adverse Reaction (Verified 06/13/19 15:55) Swelling Home Medications: Ambulatory Orders Medication Instructions Recorded Clonazepam 1 mg PO BID 02/21/19 Loxapine Succinate [Loxapine] 25 mg PO QHS 02/21/19 Amiodarone HCl 400 mg PO DAILY 03/25/19 Zinc Sulfate 220 mg PO BID #60 cap 05/03/19 Acetaminophen [Tylenol] 975 mg PO 4X/DAY 06/13/19 Albuterol Sulfate [Proair 2 puff INHALATION Q3H PRN 06/13/19 Respiclick] Ascorbic Acid [Vitamin C] 500 mg PO BIDCM 06/13/19 Folic Acid/Vitamin B Comp W-C 1 cap PO DAILYCM 06/13/19 [Nephrocaps, Renaphro] Gabapentin [Neurontin] 200 mg PO TID 06/13/19 Lactobacillus Acidophilus 1 cap PO DAILY 06/13/19 [Acidophilus] Levofloxacin [Levaquin] 500 mg PO DAILY 06/13/19 Metoprolol Tartrate 25 mg PO BID 06/13/19 Smz/Tmp Ds [Bactrim Ds] 1 tab PO DAILY 06/13/19 Surgical History: cholecystectomy, - - Left breast abscess, right groin, thigh, abdomen abscess. Axillary, groin abscess. Psychiatric History: Bipolar, Schizophrenia [employer] History: No pertinent [employer] history Lives: Snf - [place] Smoking Status: Smoker, status unknown Tobacco Use: Non-smoker Alcohol: None Drugs: None - *Family History Maternal History Items: No pertinent history Paternal History Items: No pertinent history Physical Exam - Physical Exam Vital Signs Temp 99.7 F H 06/18/19 12:00 Pulse 102 H 06/18/19 14:31 Resp 31 H 06/18/19 14:31 BP 122/48 H 06/18/19 13:00 Pulse Ox 95 06/18/19 14:31 Intake & Output 06/16/19 06/17/19 06/18/19 23:59 23:59 23:59 Intake Total 1268.00 / 1275.50 2222.75 / 2631.75 1431 / 1431 Output Total 625 / 625 1105 / 1405 650 / 650 Balance 643.00 / 650.50 1117.75 / 1226.75 781 / 781 Weight: 106.6 kg 106.7 kg 106.3 kg Intake: Intake, IV Amount 330.00 / 337.50 83.75 / 83.75 50 / 50 Ceftriaxone 2 GM In 0.9% Normal 50 / 50 50 / 50 Saline 50 ML @ 100 mls/hr IV Q24 [facility] Rx#:[id number] Rocephin 1 gm In 50 ml @ 100 50 / 50 mls/hr IV Q24 [facility] Rx#:[id number] Zosyn 3.375 GM In 0.9% Normal 100 / 100 Saline 50 ML @ 12.5 mls/hr IV Q8 [facility] Rx#:[id number] fentaNYL drip 10 MCG/ML @ 50 180.00 / 187.50 33.75 / 33.75 MCG/HR 5 mls/hr IV UD [facility] Rx#: [id number] Tube Feeding 633 / 633 1234 / 1493 631 / 631 NG/PEG Flush 305 / 305 905 / 1055 750 / 750 Oral Gastric Tube 385 / 385 300 / 300 Output: Urine 625 / 625 1105 / 1405 650 / 650 Other: Number of Bowel Movements 1 Microbiology Past 72 Hours 06/13/19 13:15 Blood Culture - Final Blood Culture (Wb) - Left Hand No growth in 5 days. 06/13/19 13:15 Blood Culture - Final Blood Culture (Wb) - Anticubital Right No growth in 5 days. 06/18/19 09:00 C. difficile DNA Amplification - Final Stool 06/13/19 14:47 Urine Culture - Final Urine Catheter - Siddiqi Presumptive C albicans Meth. resistant Staph. aureus Enterococcus faecalis 06/13/19 18:00 Gram Stain - Final Wound - Buttock Wound Culture - Final Proteus mirabilis Meth. resistant Staph. aureus Corynebacterium amycolatum 06/14/19 12:30 Gram Stain - Final Sputum, Induced/Lukens Respiratory Culture - Final Meth. resistant Staph. aureus 06/13/19 18:00 Gram Stain - Final Wound - Abdominal Wound Culture - Final Proteus mirabilis Meth. resistant Staph. aureus Corynebacterium amycolatum Laboratory Tests Past 24 Hrs 06/17/19 06/17/19 06/17/19 09:58 09:58 16:20 WBC RBC Hgb Hct MCV MCH MCHC RDW Std Deviation RDW Coeff of Bassam Plt Count MPV Immature Gran % (Auto) Neut % (Auto) Lymph % (Auto) Yates % (Auto) Eos % (Auto) Baso % (Auto) Absolute Neuts (auto) Absolute Lymphs (auto) Nucleated RBC % PT INR Specimen Type Cancelled ART Sample Site Cancelled R RADIAL pH Cancelled 7.24 L Bicarbonate Actual Cancelled 24.1 POC Total CO2 Cancelled 26 Base Excess Cancelled -3 L O2 Saturation Cancelled 90 L O2 % Cancelled 40 ABG pCO2 Cancelled 56.5 H ABG pO2 Cancelled 70 L Justo Test Cancelled POS Respiration Rate Cancelled 12 O2 Delivery Device Cancelled Vent Liter Flow Cancelled Minute Volume Cancelled Vent Mode Cancelled A-C Tidal Volume Cancelled 400 POC PEEP Cancelled 8 POC Pressure Suppt Cancelled Pressure High Cancelled Pressure Low Cancelled Time High Cancelled Time Low Cancelled EPAP Cancelled IPAP Cancelled Blood Gas Notified Whom Cancelled ICU Blood Gas Notified Time Cancelled 958 Sodium Potassium Chloride Carbon Dioxide Anion Gap BUN Creatinine Estim Creat Clear Calc Est GFR (MDRD) Af Amer Est GFR (MDRD) Non-Af BUN/Creatinine Ratio Glucose Calcium Phosphorus Magnesium Urine Color Urine Clarity Urine pH Ur Specific [place] Urine Protein Urine Glucose (UA) Urine Ketones Urine Occult Blood Urine Nitrite Urine Bilirubin Urine Urobilinogen Ur Leukocyte Esterase Urine RBC Urine WBC Ur Squamous Epith Cells Urine Bacteria Urine Mucus Urine Yeast Ur Random Sodium Urine Creatinine 70.20 Random Vancomycin 06/17/19 06/17/19 06/18/19 16:20 16:20 05:00 WBC 13.5 H RBC 3.49 L Hgb 9.4 L Hct 31.8 L MCV 91.1 MCH 26.9 L MCHC 29.6 L RDW Std Deviation 59.8 H RDW Coeff of Bassam 18.2 H Plt Count 152 MPV 11.5 Immature Gran % (Auto) 2.300 H Neut % (Auto) 79.7 H Lymph % (Auto) 13.6 L Yates % (Auto) 3.1 Eos % (Auto) 1.0 Baso % (Auto) 0.3 Absolute Neuts (auto) 10.8 H Absolute Lymphs (auto) 1.84 Nucleated RBC % 0.1 PT INR Specimen Type Sample Site pH Bicarbonate Actual POC Total CO2 Base Excess O2 Saturation O2 % ABG pCO2 ABG pO2 Justo Test Respiration Rate O2 Delivery Device Liter Flow Minute Volume Vent Mode Tidal Volume POC PEEP POC Pressure Suppt Pressure High Pressure Low Time High Time Low EPAP IPAP Blood Gas Notified Whom Blood Gas Notified Time Sodium Potassium Chloride Carbon Dioxide Anion Gap BUN Creatinine Estim Creat Clear Calc Est GFR (MDRD) Af Amer Est GFR (MDRD) Non-Af BUN/Creatinine Ratio Glucose Calcium Phosphorus Magnesium Urine Color Yellow Urine Clarity Sl. Cloudy Urine pH 6.0 Ur Specific [place] 1.015 Urine Protein 30 H Urine Glucose (UA) Normal Urine Ketones Negative Urine Occult Blood 10 H Urine Nitrite Negative Urine Bilirubin Negative Urine Urobilinogen Normal Ur Leukocyte Esterase 25 H Urine RBC 0 SEEN Urine WBC 5-10 SEEN Ur Squamous Epith Cells 0-5 SEEN Urine Bacteria 1+ Urine Mucus 0 SEEN Urine Yeast 2+ Ur Random Sodium 24 Urine Creatinine Random Vancomycin 06/18/19 06/18/19 06/18/19 05:00 05:00 05:26 WBC RBC Hgb Hct MCV MCH MCHC RDW Std Deviation RDW Coeff of Bassam Plt Count MPV Immature Gran % (Auto) Neut % (Auto) Lymph % (Auto) Yates % (Auto) Eos % (Auto) Baso % (Auto) Absolute Neuts (auto) Absolute Lymphs (auto) Nucleated RBC % PT INR Specimen Type ART Sample Site R RADIAL pH 7.32 L Bicarbonate Actual 22.1 POC Total CO2 23 Base Excess -4 L O2 Saturation 89 L O2 % 35 ABG pCO2 42.7 ABG pO2 62 L Justo Test POS Respiration Rate 16 O2 Delivery Device Vent Liter Flow Minute Volume 9.70 Vent Mode A-C Tidal Volume 400 POC PEEP 8 POC Pressure Suppt Pressure High Pressure Low Time High Time Low EPAP IPAP Blood Gas Notified Whom ICU Blood Gas Notified Time 526 Sodium 146 H Potassium 4.0 Chloride 117 H Carbon Dioxide 23.0 Anion Gap 6 BUN 123 H* Creatinine 2.92 H Estim Creat Clear Calc 17.69 Est GFR (MDRD) Af Amer 21 L Est GFR (MDRD) Non-Af 17 L BUN/Creatinine Ratio 42.1 H Glucose 125 H Calcium 8.0 L Phosphorus 1.8 L Magnesium 2.2 Urine Color Urine Clarity Urine pH Ur Specific [place] Urine Protein Urine Glucose (UA) Urine Ketones Urine Occult Blood Urine Nitrite Urine Bilirubin Urine Urobilinogen Ur Leukocyte Esterase Urine RBC Urine WBC Ur Squamous Epith Cells Urine Bacteria Urine Mucus Urine Yeast Ur Random Sodium Urine Creatinine Random Vancomycin 30.5 H 06/18/19 06/18/19 09:00 11:15 WBC RBC Hgb Hct MCV MCH MCHC RDW Std Deviation RDW Coeff of Bassam Plt Count MPV Immature Gran % (Auto) Neut % (Auto) Lymph % (Auto) Yates % (Auto) Eos % (Auto) Baso % (Auto) Absolute Neuts (auto) Absolute Lymphs (auto) Nucleated RBC % PT 16.6 H INR 1.4 Specimen Type Sample Site pH Bicarbonate Actual POC Total CO2 Base Excess O2 Saturation O2 % ABG pCO2 ABG pO2 Justo Test Respiration Rate O2 Delivery Device Liter Flow Minute Volume Vent Mode Tidal Volume POC PEEP POC Pressure Suppt Pressure High Pressure Low Time High Time Low EPAP IPAP Blood Gas Notified Whom Blood Gas Notified Time Sodium 146 H Potassium 4.0 Chloride 116 H Carbon Dioxide 24.0 Anion Gap 6 BUN 133 H* Creatinine 3.06 H Estim Creat Clear Calc 16.88 Est GFR (MDRD) Af Amer 20 L Est GFR (MDRD) Non-Af 17 L BUN/Creatinine Ratio 43.5 H Glucose 134 H Calcium 8.2 L Phosphorus Magnesium Urine Color Urine Clarity Urine pH Ur Specific [place] Urine Protein Urine Glucose (UA) Urine Ketones Urine Occult Blood Urine Nitrite Urine Bilirubin Urine Urobilinogen Ur Leukocyte Esterase Urine RBC Urine WBC Ur Squamous Epith Cells Urine Bacteria Urine Mucus Urine Yeast Ur Random Sodium Urine Creatinine Random Vancomycin Assessment/Plan All Active Problems Perirectal abscess (Acute) Severe sepsis (Acute) Acute respiratory failure with hypoxia and hypercapnia (Acute) Bilateral pneumonia (Acute) Infection due to [facility] coronavirus (Acute) 59-year-old female presented to the hospital with respiratory failure has been intubated is positive for the coronavirus. Images and chart and document reviewed. She does have some mild to moderate hydronephrosis in the left kidney but the right kidney?s completely normal with no hydronephrosis. I think her overall renal dysfunction is a result of sepsis and overall condition deterioration and sepsis. I don?t think intervention on the left kidney with a nephrostomy tube would be of benefit to the patient. That would be a one option is to have a left nephrostomy tube place by radiology but I think trade-off benefit is very low. Call me for any questions.
[2019-06-18] MEDS: Heparin 10,000 UNITS/10 ML Vial 1000 UNITS IV (16:04)
--- NOTE | 2019-06-18 16:05 | NURSING ---
storm Enriquez BUSHEL GIRL at bedside with this RN at 1550 to start Dialysis line Line placed 1.3ml of Heparin instilled in each lumen by storm enriquez NP sutured line in patient tolerated procedure well
--- NOTE | 2019-06-18 16:20 | PCM.OPRPT ---
Report of Operation Date of Procedure: 06/18/19 Surgery/Procedure Performed:: Dialysis catheter insertion Description of Surgical Findings:: Very hemodialysis catheter insertion procedure note Indication: Hemodialysis Procedure: A time-out was completed to verify correct patient, indication, medication allergies, procedure, coagulation studies, informed consent signed, and equipment needed. The patient was placed in the supine position for a central line placement to the rt IJ vein. The patients rt neck was prepped using chlorhexidine and a full body sterile drape was applied. 1% lidocaine was used to anesthetize the surrounding skin. A 12 fr 16/20 cm temporary hemodialysis catheter introduced into the internal jugular vein using the modified Seldinger technique with the assistance of ultrasound. The catheter was threaded smoothly over the guidewire, the guidewire was removed easily, nonpulsatile blood returned. All ports were aspirated of air and flushed with sterile saline, then locked with U 1000 heparin 1.3 mL's to each port. The catheter was sutured in place and covered with an occlusive dressing impregnated with chlorhexidine. Post-procedure: The patient tolerated the procedure well. Vital signs remained stable. EBL 10 cc. No complications. Chest X Ray ordered to confirm tip placement and the absence of pneumothorax. Procedures: [id number] Insert Non-tunnel CV Cath
--- NOTE | 2019-06-18 16:30 | RAD_ITS ---
STUDY: X-RAY CHEST REASON FOR EXAM: Female, 59 years old. DIALYSIS CATHETER PLACEMENT. TECHNIQUE: Single AP portable view of the chest. COMPARISON: 06/13/2019. FINDINGS: Endotracheal tube and nasogastric tubes are stable and in grossly satisfactory position. A dialysis catheter seen through the right IJ terminating in the lower SVC. No pneumothorax. No other changes. Bilateral diffuse pulmonary density is seen right worse than left. No gross effusions. Normal size heart. Normal mediastinum and fernanda. Normal visualized pulmonary arteries. Normal visualized aortic arch and descending thoracic aorta. Normal visualized thoracic spine. Normal visualized ribs, clavicles, and shoulders. There is no demonstrated abnormality of the visualized soft tissue structures of the upper abdomen. RAD/CXR for Line Placement IMPRESSION: A dialysis catheter seen through the right IJ terminating in the lower SVC. No pneumothorax. No other change. Electronically Signed: Shiv Carr MD at 17:18 EDT , Service support ,
--- NOTE | 2019-06-18 20:50 | DIALYSIS ---
Addendum entered by Deangelo Upton 06/19/19 00:06: Hemodialysis complete. 2 hour run, 4k bath, no fluid removed. Patient ran even as ordered. Right IJ temporary catheter. Site benign, dressing dry and intact, lumen flushed with NS, filled to volume with Heparin, capped and clamped. Report given to primary RN, Alta Aggarwal Original Note: Report from primary RNIris Access: Right IJ temporary catheter. Placed today. Verified. OK to use.
[2019-06-19] VITALS (32 sets, daily range): BP systolic 91–141; BP diastolic 37–73; PULSE 80–119; RESP 15–24; TEMP 36.4–37; O2SAT 94–987
[2019-06-19 04:57] LABS: Absolute Lymphocyte Count 1.25 X10^3/uL (0.83-4.51); Absolute Neutrophil Count 11.1 X10^3/uL (2.0-7.7); Basophil# 0.02 X10^3/uL; Basophil% 0.2 % (0-1); Eosinophil# 0.05 X10^3/uL; Eosinophils% 0.4 % (0-5); Hematocrit 30.4 % (37-47); Hemoglobin 9.3 g/dL (12.0-15.0); Lymphocyte # 1.25 X10^3/ul (4.0); Lymphocyte % 9.5 % (19-41); Mean Corp Hgb Conc 30.6 g/dL (32-36); Mean Corpuscular Hgb 27.4 pg (27.0-32.0); Mean Corpuscular Volume 89.7 fL (81-99); Mean Platelet Vol. 11.5 fl (6.2-12.0); Monocyte# 0.37 X10^3/uL; Monocyte% 2.8 % (0-10); NRBC Flagged by Analyzer 0.2 % (0-5); Neutrophil # 11.13 X10^3/uL (2.7-7.7); Neutrophil % 84.4 % (47-70); Platelet Count 142 K/mm3 (150-450); RBC Distribution Width CV 18.1 % (11.6-14.6); RBC Distribution Width SD 58.4 fl (35.1-43.9); Red Blood Count 3.39 M/mm3 (4.2-5.4); White Blood Count 13.2 K/mm3 (4.4-11.0)
[2019-06-19 05:54] LABS: Vancomycin, Random Level 23.9 ug/mL (0.0-15.0)
[2019-06-19 05:57] LABS: Anion Gap 2 (5-15); BUN 105 mg/dL (7-18); BUN/Creat Ratio 42.7 RATIO (10-20); Calcium,Total 8.5 mg/dL (8.5-10.1); Chloride 112 mmol/L (98-107); Creatinine, Serum 2.46 mg/dL (0.55-1.02); EST Glomerular Filtration Rate 21 mL/min (>60); Est Glom Filt Rate - Afr Amer 26 mL/min (>60); Glucose 151 mg/dL (74-106); Potassium 4.2 mmol/L (3.5-5.1); Sodium Level 143 mmol/L (136-145)
--- NOTE | 2019-06-19 06:11 | PN_ITS ---
Subjective: The patient was seen and examined at the bedside this morning. Events from the last 24 hours have been reviewed. The patient is currently afebrile, hemodynamically stable and maintaining appropriate oxygen saturations on assist control mode of mechanical ventilation with an FiO2 requirement of 30% and PEEP of 5. Chemistry profile did reveal some improvement in the patient's BUN. She is currently being prepped for hemodialysis this morning. The patient is tolerating tube feeds. She remains on ceftriaxone and vancomycin. The patient is currently documented to be overall net +7 L for the hospital admission. Objective: The patient's most recent lab work, culture data and imaging studies have all been personally reviewed. Blood cultures have shown no growth to date. Urine culture was positive for MRSA and Enterococcus faecalis. Abdominal wound culture was positive for Proteus mirabilis, MRSA and Corynebacterium. Buttock wound culture was positive for Proteus mirabilis, MRSA and Corynebacterium. Sputum culture was positive for MRSA. General: - - Remains intubated and mechanically ventilated. No ventilator dyssynchrony. HEENT: Atraumatic, Normocephalic Oral: Moist Mucosa, - - Endotracheal and OG tubes remain in place Neck: Supple, No Nodes, Trachea Midline, - - Right IJ temporary hemodialysis catheter in place Lungs: No rhonchi, No wheeze, No rales, Diminished Cardiovascular: Regular rate, Regular Rhythm, Normal S1, Normal S2 Abdomen: Bowel Sounds Present, Soft, Non Tender, Obese Extremities: No clubbing, No cyanosis, Edema Skin: - - No significant change from previous Musculoskeletal: No Muscle Wasting Lymphatic: No Cervical, Supraclavicular, or Inguinal Adenopathy Neurological: - - Still quite lethargic, although some improvement from yesterday. RASS -3 Vital Signs Temp Pulse Resp BP Pulse Ox 97.9 F 104 H 19 H 119/42 L 987 06/19/19 03:00 06/19/19 03:00 06/19/19 03:00 06/19/19 03:00 06/19/19 03:00 Oxygen Flow Rate (L/min) 35 Oxygen Delivery Method Mechanical Ventilator Weight: 231 lb 7.766 oz Body Mass Index (BMI) 39.4 Intake and Output for Last 24 Hours 06/17/19 06/18/19 06/19/19 23:59 23:59 23:59 Intake Total 2222.75 / 2631.75 2437 / 2861 848 / 848 Output Total 1105 / 1405 1200 / 1400 300 / 300 Balance 1117.75 / 1226.75 1237 / 1461 548 / 548 Labs (Last 48 Hours) 06/17/19 06/17/19 06/17/19 08:45 08:45 08:45 WBC 14.6 H RBC 3.49 L Hgb 9.5 L Hct 32.5 L MCV 93.1 MCH 27.2 MCHC 29.2 L RDW Std Deviation 62.4 H RDW Coeff of Bassam 18.3 H Plt Count 172 MPV 10.6 Immature Gran % (Auto) 2.900 H Neut % (Auto) 83.8 H Lymph % (Auto) 9.6 L [place] % (Auto) 3.1 Eos % (Auto) 0.3 Baso % (Auto) 0.3 Absolute Neuts (auto) 12.2 H Absolute Lymphs (auto) 1.40 Nucleated RBC % 0.1 PT INR Specimen Type Sample Site pH Bicarbonate Actual POC Total CO2 Base Excess O2 Saturation O2 % ABG pCO2 ABG pO2 Justo Test Respiration Rate O2 Delivery Device Liter Flow Minute Volume Vent Mode Tidal Volume POC PEEP POC Pressure Suppt Pressure High Pressure Low Time High Time Low EPAP IPAP Blood Gas Notified Whom Blood Gas Notified Time Sodium 146 H Potassium 3.9 Chloride 117 H Carbon Dioxide 25.0 Anion Gap 4 L BUN 91 H Creatinine 2.34 H Estim Creat Clear Calc 22.08 Est GFR (MDRD) Af Amer 27 L Est GFR (MDRD) Non-Af 23 L BUN/Creatinine Ratio 38.9 H Glucose 133 H Calcium 8.3 L Phosphorus Magnesium Total Bilirubin 0.20 AST 33 ALT 26 Alkaline Phosphatase 165 H Ammonia 51.0 H B-Natriuretic Peptide Cancelled Total Protein 7.3 Albumin 1.2 L Globulin 6.1 H Albumin/Globulin Ratio 0.2 L Urine Color Urine Clarity Urine pH Ur Specific [place] Urine Protein Urine Glucose (UA) Urine Ketones Urine Occult Blood Urine Nitrite Urine Bilirubin Urine Urobilinogen Ur Leukocyte Esterase Urine RBC Urine WBC Ur Squamous Epith Cells Urine Bacteria Urine Mucus Urine Yeast Ur Random Sodium Urine Creatinine Random Vancomycin Hep Bs Antigen Hep Bs Antibody Hep B Core Total Ab MRSA (PCR) 04/06/20 04/06/20 04/06/20 08:45 09:58 09:58 WBC RBC Hgb Hct MCV MCH MCHC RDW Std Deviation RDW Coeff of Bassam Plt Count MPV Immature Gran % (Auto) Neut % (Auto) Lymph % (Auto) [place] % (Auto) Eos % (Auto) Baso % (Auto) Absolute Neuts (auto) Absolute Lymphs (auto) Nucleated RBC % PT INR Specimen Type Cancelled ART Sample Site Cancelled R RADIAL pH Cancelled 7.24 L Bicarbonate Actual Cancelled 24.1 POC Total CO2 Cancelled 26 Base Excess Cancelled -3 L O2 Saturation Cancelled 90 L O2 % Cancelled 40 ABG pCO2 Cancelled 56.5 H ABG pO2 Cancelled 70 L Justo Test Cancelled POS Respiration Rate Cancelled 12 O2 Delivery Device Cancelled Vent Liter Flow Cancelled Minute Volume Cancelled Vent Mode Cancelled A-C Tidal Volume Cancelled 400 POC PEEP Cancelled 8 POC Pressure Suppt Cancelled Pressure High Cancelled Pressure Low Cancelled Time High Cancelled Time Low Cancelled EPAP Cancelled IPAP Cancelled Blood Gas Notified Whom Cancelled ICU MD Blood Gas Notified Time Cancelled 958 Sodium Potassium Chloride Carbon Dioxide Anion Gap BUN Creatinine Estim Creat Clear Calc Est GFR (MDRD) Af Amer Est GFR (MDRD) Non-Af BUN/Creatinine Ratio Glucose Calcium Phosphorus Magnesium Total Bilirubin AST ALT Alkaline Phosphatase Ammonia B-Natriuretic Peptide 747.6 H Total Protein Albumin Globulin Albumin/Globulin Ratio Urine Color Urine Clarity Urine pH Ur Specific [place] Urine Protein Urine Glucose (UA) Urine Ketones Urine Occult Blood Urine Nitrite Urine Bilirubin Urine Urobilinogen Ur Leukocyte Esterase Urine RBC Urine WBC Ur Squamous Epith Cells Urine Bacteria Urine Mucus Urine Yeast Ur Random Sodium Urine Creatinine Random Vancomycin Hep Bs Antigen Hep Bs Antibody Hep B Core Total Ab MRSA (PCR) 06/17/19 06/17/19 06/17/19 10:20 16:20 16:20 WBC RBC Hgb Hct MCV MCH MCHC RDW Std Deviation RDW Coeff of Bassam Plt Count MPV Immature Gran % (Auto) Neut % (Auto) Lymph % (Auto) [place] % (Auto) Eos % (Auto) Baso % (Auto) Absolute Neuts (auto) Absolute Lymphs (auto) Nucleated RBC % PT INR Specimen Type Sample Site pH Bicarbonate Actual POC Total CO2 Base Excess O2 Saturation O2 % ABG pCO2 ABG pO2 Justo Test Respiration Rate O2 Delivery Device Liter Flow Minute Volume Vent Mode Tidal Volume POC PEEP POC Pressure Suppt Pressure High Pressure Low Time High Time Low EPAP IPAP Blood Gas Notified Whom Blood Gas Notified Time Sodium Potassium Chloride Carbon Dioxide Anion Gap BUN Creatinine Estim Creat Clear Calc Est GFR (MDRD) Af Amer Est GFR (MDRD) Non-Af BUN/Creatinine Ratio Glucose Calcium Phosphorus Magnesium Total Bilirubin AST ALT Alkaline Phosphatase Ammonia B-Natriuretic Peptide Total Protein Albumin Globulin Albumin/Globulin Ratio Urine Color Yellow Urine Clarity Sl. Cloudy Urine pH 6.0 Ur Specific [place] 1.015 Urine Protein 30 H Urine Glucose (UA) Normal Urine Ketones Negative Urine Occult Blood 10 H Urine Nitrite Negative Urine Bilirubin Negative Urine Urobilinogen Normal Ur Leukocyte Esterase 25 H Urine RBC 0 SEEN Urine WBC 5-10 SEEN Ur Squamous Epith Cells 0-5 SEEN Urine Bacteria 1+ Urine Mucus 0 SEEN Urine Yeast 2+ Ur Random Sodium Urine Creatinine 70.20 Random Vancomycin Hep Bs Antigen Hep Bs Antibody Hep B Core Total Ab MRSA (PCR) Negative 06/17/19 06/18/19 06/18/19 16:20 05:00 05:00 WBC 13.5 H RBC 3.49 L Hgb 9.4 L Hct 31.8 L MCV 91.1 MCH 26.9 L MCHC 29.6 L RDW Std Deviation 59.8 H RDW Coeff of Bassam 18.2 H Plt Count 152 MPV 11.5 Immature Gran % (Auto) 2.300 H Neut % (Auto) 79.7 H Lymph % (Auto) 13.6 L [place] % (Auto) 3.1 Eos % (Auto) 1.0 Baso % (Auto) 0.3 Absolute Neuts (auto) 10.8 H Absolute Lymphs (auto) 1.84 Nucleated RBC % 0.1 PT INR Specimen Type Sample Site pH Bicarbonate Actual POC Total CO2 Base Excess O2 Saturation O2 % ABG pCO2 ABG pO2 Justo Test Respiration Rate O2 Delivery Device Liter Flow Minute Volume Vent Mode Tidal Volume POC PEEP POC Pressure Suppt Pressure High Pressure Low Time High Time Low EPAP IPAP Blood Gas Notified Whom Blood Gas Notified Time Sodium 146 H Potassium 4.0 Chloride 117 H Carbon Dioxide 23.0 Anion Gap 6 BUN 123 H* Creatinine 2.92 H Estim Creat Clear Calc 17.69 Est GFR (MDRD) Af Amer 21 L Est GFR (MDRD) Non-Af 17 L BUN/Creatinine Ratio 42.1 H Glucose 125 H Calcium 8.0 L Phosphorus 1.8 L Magnesium 2.2 Total Bilirubin AST ALT Alkaline Phosphatase Ammonia B-Natriuretic Peptide Total Protein Albumin Globulin Albumin/Globulin Ratio Urine Color Urine Clarity Urine pH Ur Specific [place] Urine Protein Urine Glucose (UA) Urine Ketones Urine Occult Blood Urine Nitrite Urine Bilirubin Urine Urobilinogen Ur Leukocyte Esterase Urine RBC Urine WBC Ur Squamous Epith Cells Urine Bacteria Urine Mucus Urine Yeast Ur Random Sodium 24 Urine Creatinine Random Vancomycin Hep Bs Antigen Hep Bs Antibody Hep B Core Total Ab MRSA (PCR) 06/18/19 06/18/19 06/18/19 05:00 05:26 09:00 WBC RBC Hgb Hct MCV MCH MCHC RDW Std Deviation RDW Coeff of Bassam Plt Count MPV Immature Gran % (Auto) Neut % (Auto) Lymph % (Auto) [place] % (Auto) Eos % (Auto) Baso % (Auto) Absolute Neuts (auto) Absolute Lymphs (auto) Nucleated RBC % PT 16.6 H INR 1.4 Specimen Type ART Sample Site R RADIAL pH 7.32 L Bicarbonate Actual 22.1 POC Total CO2 23 Base Excess -4 L O2 Saturation 89 L O2 % 35 ABG pCO2 42.7 ABG pO2 62 L Justo Test POS Respiration Rate 16 O2 Delivery Device Vent Liter Flow Minute Volume 9.70 Vent Mode A-C Tidal Volume 400 POC PEEP 8 POC Pressure Suppt Pressure High Pressure Low Time High Time Low EPAP IPAP Blood Gas Notified Whom ICU Blood Gas Notified Time 526 Sodium Potassium Chloride Carbon Dioxide Anion Gap BUN Creatinine Estim Creat Clear Calc Est GFR (MDRD) Af Amer Est GFR (MDRD) Non-Af BUN/Creatinine Ratio Glucose Calcium Phosphorus Magnesium Total Bilirubin AST ALT Alkaline Phosphatase Ammonia B-Natriuretic Peptide Total Protein Albumin Globulin Albumin/Globulin Ratio Urine Color Urine Clarity Urine pH Ur Specific [place] Urine Protein Urine Glucose (UA) Urine Ketones Urine Occult Blood Urine Nitrite Urine Bilirubin Urine Urobilinogen Ur Leukocyte Esterase Urine RBC Urine WBC Ur Squamous Epith Cells Urine Bacteria Urine Mucus Urine Yeast Ur Random Sodium Urine Creatinine Random Vancomycin 30.5 H Hep Bs Antigen Hep Bs Antibody Hep B Core Total Ab MRSA (PCR) 06/18/19 06/18/19 06/18/19 11:15 22:22 22:22 WBC RBC Hgb Hct MCV MCH MCHC RDW Std Deviation RDW Coeff of Bassam Plt Count MPV Immature Gran % (Auto) Neut % (Auto) Lymph % (Auto) [place] % (Auto) Eos % (Auto) Baso % (Auto) Absolute Neuts (auto) Absolute Lymphs (auto) Nucleated RBC % PT INR Specimen Type Sample Site pH Bicarbonate Actual POC Total CO2 Base Excess O2 Saturation O2 % ABG pCO2 ABG pO2 Justo Test Respiration Rate O2 Delivery Device Liter Flow Minute Volume Vent Mode Tidal Volume POC PEEP POC Pressure Suppt Pressure High Pressure Low Time High Time Low EPAP IPAP Blood Gas Notified Whom Blood Gas Notified Time Sodium 146 H Potassium 4.0 Chloride 116 H Carbon Dioxide 24.0 Anion Gap 6 BUN 133 H* Creatinine 3.06 H Estim Creat Clear Calc 16.88 Est GFR (MDRD) Af Amer 20 L Est GFR (MDRD) Non-Af 17 L BUN/Creatinine Ratio 43.5 H Glucose 134 H Calcium 8.2 L Phosphorus Magnesium Total Bilirubin AST ALT Alkaline Phosphatase Ammonia B-Natriuretic Peptide Total Protein Albumin Globulin Albumin/Globulin Ratio Urine Color Urine Clarity Urine pH Ur Specific [place] Urine Protein Urine Glucose (UA) Urine Ketones Urine Occult Blood Urine Nitrite Urine Bilirubin Urine Urobilinogen Ur Leukocyte Esterase Urine RBC Urine WBC Ur Squamous Epith Cells Urine Bacteria Urine Mucus Urine Yeast Ur Random Sodium Urine Creatinine Random Vancomycin Hep Bs Antigen Pending Hep Bs Antibody Pending Hep B Core Total Ab Pending MRSA (PCR) 06/19/19 06/19/19 06/19/19 04:45 04:45 04:45 WBC 13.2 H RBC 3.39 L Hgb 9.3 L Hct 30.4 L MCV 89.7 MCH 27.4 MCHC 30.6 L RDW Std Deviation 58.4 H RDW Coeff of Bassam 18.1 H Plt Count 142 L MPV 11.5 Immature Gran % (Auto) 2.700 H Neut % (Auto) 84.4 H Lymph % (Auto) 9.5 L [place] % (Auto) 2.8 Eos % (Auto) 0.4 Baso % (Auto) 0.2 Absolute Neuts (auto) 11.1 H Absolute Lymphs (auto) 1.25 Nucleated RBC % 0.2 PT INR Specimen Type Sample Site pH Bicarbonate Actual POC Total CO2 Base Excess O2 Saturation O2 % ABG pCO2 ABG pO2 Justo Test Respiration Rate O2 Delivery Device Liter Flow Minute Volume Vent Mode Tidal Volume POC PEEP POC Pressure Suppt Pressure High Pressure Low Time High Time Low EPAP IPAP Blood Gas Notified Whom Blood Gas Notified Time Sodium 143 Potassium 4.2 Chloride 112 H Carbon Dioxide 29.0 Anion Gap 2 L BUN 105 H* Creatinine 2.46 H Estim Creat Clear Calc 21.00 Est GFR (MDRD) Af Amer 26 L Est GFR (MDRD) Non-Af 21 L BUN/Creatinine Ratio 42.7 H Glucose 151 H Calcium 8.5 Phosphorus Magnesium Total Bilirubin AST ALT Alkaline Phosphatase Ammonia B-Natriuretic Peptide Total Protein Albumin Globulin Albumin/Globulin Ratio Urine Color Urine Clarity Urine pH Ur Specific [place] Urine Protein Urine Glucose (UA) Urine Ketones Urine Occult Blood Urine Nitrite Urine Bilirubin Urine Urobilinogen Ur Leukocyte Esterase Urine RBC Urine WBC Ur Squamous Epith Cells Urine Bacteria Urine Mucus Urine Yeast Ur Random Sodium Urine Creatinine Random Vancomycin 23.9 H Hep Bs Antigen Hep Bs Antibody Hep B Core Total Ab MRSA (PCR) Microbiology 06/13/19 13:15 Blood Culture (Wb) - Left Hand Blood Culture - Final No growth in 5 days. 06/13/19 13:15 Blood Culture (Wb) - Anticubital Right Blood Culture - Final No growth in 5 days. 06/18/19 09:00 Stool C. difficile DNA Amplification - Final Clinical Impression(s) from Imaging Studies Chest X-Ray 06/13/19 14:30 IMPRESSION: Infiltrates in the right lung as well as in the left mid lung. Follow-up is recommended. The tip of the endotracheal tube is at 4 cm proximal to the garret. Electronically Signed: Steve Fierro, at 14:55 EDT , Service support , Hip/Pelvis X-Ray 06/13/19 14:30 IMPRESSION: Degenerative changes of both hips as well as the sacroiliac joints. Electronically Signed: Steve Fierro, at 14:55 EDT , Service support , KUB X-Ray 06/13/19 14:30 IMPRESSION: The tip of the orogastric tube is seen in the distal stomach/pyloric region. Electronically Signed: Steve Fierro, at 14:53 EDT , Service support , Renal Ultrasound 06/17/19 12:36 IMPRESSION: 1.3 cm x 1.5 cm x 1.3 cm left renal cyst. Moderate degree of the left hydronephrosis. Distended urinary bladder. Electronically Signed: Steve Fierro, at 15:35 EDT , Service support , Chest X-Ray 06/18/19 16:30 IMPRESSION: A dialysis catheter seen through the right IJ terminating in the lower SVC. No pneumothorax. No other change. Electronically Signed: Shiv Carr MD at 17:18 EDT , Service support , Medical Necessity - Tobacco Use Smoking Status: Smoker, status unknown Tobacco Use: Non-smoker Assessment/Plan All Active Problems Perirectal abscess (Acute) Severe sepsis (Acute) Acute respiratory failure with hypoxia and hypercapnia (Acute) Bilateral pneumonia (Acute) Infection due to [place] coronavirus (Acute) RECOMMENDATIONS: 1. Continue to withhold all sedating medications. 2. Continue hemodialysis per nephrology recommendations. 3. Continue antimicrobials per ID recommendations. 4. Continue tube feeds as ordered. 5. Continue lung protective ventilatory strategy. Wean FiO2 and PEEP to maintain oxygen saturations at or above 90%. 6. Continue appropriate ICU prophylaxis. IMPRESSIONS: 1. Acute hypoxemic respiratory failure 2/2 ARDS due to COVID-19 infection combined with MRSA Pneumonia Continue current supportive measures with invasive mechanical ventilatory support, employing a lung protective strategy, along with antimicrobials per infectious diseases recommendations. Azithromycin and Plaquenil were avoided due to prolonged QTC at baseline. Continue to wean FiO2 and PEEP to maintain oxygen saturations at or above 90%. Although the patient's respiratory status has improved, her mental state is currently limiting her ability to attempt to wean her from invasive mechanical ventilatory support. 2. Severe sepsis secondary to COVID-19 Infection and MRSA Pneumonia Continue current supportive measures as noted above. The patient remains hemodynamically stable. 3. Acute kidney injury The patient has developed worsening renal insufficiency over the last several days. Concern for ATN in the setting of COVID infection. The patient has become progressively uremic, which has left her an encephalopathic state. Nephrology is currently following to assist with hemodialysis needs. Hopefully, the patient's mentation will continue to improve with ongoing clearance through dialysis. 4. Encephalopathy Concern for toxic metabolic encephalopathy, with underlying worsening uremia contributing. Nephrology is currently following to assist with hemodialysis needs. Continue to withhold all sedating medications. 5. Diabetes mellitus/hypertension/schizoaffective disorder/morbid obesity Complicates care, management, recovery and prognosis. Continue sliding scale insulin coverage. TIME: 40 minutes of critical care time, independent of procedures, was spent addressing the patient's acute hypoxemic respiratory failure, ARDS secondary to coronavirus infection and MRSA pneumonia, severe sepsis, acute kidney injury, encephalopathy, review of all data and collaboration with the care team. [id number] [id number]) [phone] [id number] Critical care first hour
--- NOTE | 2019-06-19 07:43 | PCM.RX.CS ---
Consult Pharmacy has been consulted to manage selected antiobiotic: Vancomycin Type of Consult: Follow-up Suspected Infection: Sepsis Prior Doses of Antibiotics Received/Current Regimen: Last dose given was on 06.15.19. Vancomycin has been held due to high levels >20. Labs: Sodium 143 mmol/L (136-145) 06/19/19 04:45 Potassium 4.2 mmol/L (3.5-5.1) 06/19/19 04:45 Chloride 112 mmol/L (98-107) H 06/19/19 04:45 Carbon Dioxide 29.0 mmol/L (21.0-32.0) 06/19/19 04:45 Anion Gap 2 (5-15) L 06/19/19 04:45 BUN 105 mg/dL (7-18) H* 06/19/19 04:45 Creatinine 2.46 mg/dL (0.55-1.02) H 06/19/19 04:45 Est GFR (MDRD) Af Amer 26 mL/min (>60) L 06/19/19 04:45 Est GFR (MDRD) Non-Af 21 mL/min (>60) L 06/19/19 04:45 BUN/Creatinine Ratio 42.7 RATIO (10-20) H 06/19/19 04:45 Glucose 151 mg/dL (74-106) H 06/19/19 04:45 Vancomycin Trough 47.1 ug/mL (5.0-15.0) H 06/15/19 18:00 Random Vancomycin 23.9 ug/mL (0.0-15.0) H 06/19/19 04:45 Microbiology: Microbiology 06/13/19 13:15 Blood Culture (Wb) - Left Hand Blood Culture - Final No growth in 5 days. 06/13/19 13:15 Blood Culture (Wb) - Anticubital Right Blood Culture - Final No growth in 5 days. 06/18/19 09:00 Stool C. difficile DNA Amplification - Final 06/13/19 14:47 Urine Catheter - Siddiqi Urine Culture - Final Presumptive C albicans Meth. resistant Staph. aureus Enterococcus faecalis 06/13/19 18:00 Wound - Buttock Gram Stain - Final 06/13/19 18:00 Wound - Buttock Wound Culture - Final Proteus mirabilis Meth. resistant Staph. aureus Corynebacterium amycolatum 06/14/19 12:30 Sputum, Induced/Lukens Gram Stain - Final 06/14/19 12:30 Sputum, Induced/Lukens Respiratory Culture - Final Meth. resistant Staph. aureus 06/13/19 18:00 Wound - Abdominal Gram Stain - Final 06/13/19 18:00 Wound - Abdominal Wound Culture - Final Proteus mirabilis Meth. resistant Staph. aureus Corynebacterium amycolatum Weight used for dosin kg Estimated Creatinine Clearance: ~29ml/min Goal Trough: 15-20 mcg/mL Pharmacy Plan for Drug Dosing: Random level this AM was 23.9 (goal 15-20). Level being checked each AM and is trending down. Had been high of 47.1mcg/ml. Cr today 2.46. Will repeat random level in AM 4.9.20. Pharmacy Service will continue to monitor and adjust dosing as required. Follow-Up Labs: Trough Vancomycin - random level 4.9.20 @0600
[2019-06-19 09:23] LABS: Hepatitis B Surface Antibody Non-Reactive; Hepatitis B Surface Antigen Non-Reactive (Nonreactive)
--- NOTE | 2019-06-19 10:21 | CASEMGMT ---
Addendum entered by Yaneth Benitez 06/19/19 11:56: SW participated in ICU rounds. Pt is still intubated, failed mobility and will continue hemodialysis today. SW to continue to follow for discharge planning. Original Note: Social Work Note SW placed a call to pt's daughter Rosaline. Rosaline confirms that [facility] staff is able to provide update to her, her brother Kirit or her aunt Shelli. SW updated Rosaline that this worker will continue to follow along for discharge planning. Yaneth Benitez INTERNAL WHOLESALER, THRESHING DEPARTMENT SUPERVISOR
[2019-06-19] MEDS: Enoxaparin 30 MG/0.3 ML Syringe SC (11:08)
[2019-06-19] MEDS: Famotidine 20 MG Tablet GT (11:08)
[2019-06-19] MEDS: Amiodarone 200 MG Tablet 400 MG GT (11:08)
[2019-06-19] MEDS: Vital AF 1.2 Cal Liquid 1,000 ML 55 ML GT (11:10)
[2019-06-19] MEDS: Chlorhexidine 15 ML PO ×2 (11:12→20:55)
[2019-06-19] MEDS: CHLORHEXIDINE GLUC 2% CLOTH 1 EACH TOWELETTE TOPICAL (11:12)
--- NOTE | 2019-06-19 12:18 | DIALYSIS ---
HD x 3 hours complete. Tolerated tx fairly well. UF of 1400ml. Ran on 4k bath. Used Right IJ catheter. Catheter closed with heparin per fill volume post tx. Caps are in place. Dressing intact. Report was given to AMAYA Weinstein.
--- NOTE | 2019-06-19 12:33 | PN_ITS ---
Patient Problems: Active and Suspected Problems Severe sepsis (Acute) Acute respiratory failure with hypoxia and hypercapnia (Acute) Bilateral pneumonia (Acute) Infection due to [place] coronavirus (Acute) Subjective: No issues overnight, had a dialysis catheter placed yesterday after conversation family indicated they want to proceed. She did undergo a short course of dialysis last night, patient not having any fluid removed Vitals/I&O's: Vital Signs Temp Pulse Resp BP Pulse Ox 98.0 F 107 H 20 H 111/73 94 06/19/19 12:17 06/19/19 12:17 06/19/19 12:17 06/19/19 12:17 06/19/19 11:28 Oxygen Flow Rate (L/min) 35 Oxygen Delivery Method Mechanical Ventilator Weight: 231 lb 7.766 oz Body Mass Index (BMI) 39.4 Intake and Output for Last 24 Hours 06/17/19 06/18/19 06/19/19 23:59 23:59 23:59 Intake Total 2222.75 / 2631.75 2437 / 2861 848 / 848 Output Total 1105 / 1405 1200 / 1400 415 / 415 Balance 1117.75 / 1226.75 1237 / 1461 433 / 433 General: - - Intubated and nonresponsive HEENT: Atraumatic, PERRLA, Normocephalic Oral: Moist Mucosa Neck: Supple, No JVD Lungs: Clear to auscultation, No wheeze, No rales, Diminished, Rhonchi Cardiovascular: Regular rate, Regular Rhythm, Normal S1, Normal S2, No murmurs Abdomen: Soft, Non Tender, Non-Distended, No Hepato-splenomegaly Extremities: No edema, Capillary Refill Less than 3 Seconds Skin: Ulcer/ Wound - Decubitus ulcer of her buttock Neurological: - - Intubated and nonresponsive Psych/Mental Status: - - Intubated and nonresponsive Microbiology Past 72 Hours 06/13/19 13:15 Blood Culture (Wb) - Left Hand Blood Culture - Final No growth in 5 days. 06/13/19 13:15 Blood Culture (Wb) - Anticubital Right Blood Culture - Final No growth in 5 days. 06/18/19 09:00 Stool C. difficile DNA Amplification - Final Laboratory Results 06/18/19 22:22: Hep B Core Total Ab Pending 06/18/19 22:22: Hep Bs Antigen Non-Reactive, Hep Bs Antibody Non-Reactive 06/19/19 04:45: WBC 13.2 H, RBC 3.39 L, Hgb 9.3 L, Hct 30.4 L, MCV 89.7, MCH 27.4, MCHC 30.6 L, RDW Std Deviation 58.4 H, RDW Coeff of Bassam 18.1 H, Plt Count 142 L, MPV 11.5, Immature Gran % (Auto) 2.700 H, Neut % (Auto) 84.4 H, Lymph % (Auto) 9.5 L, [place] % (Auto) 2.8, Eos % (Auto) 0.4, Baso % (Auto) 0.2, Absolute Neuts (auto) 11.1 H, Absolute Lymphs (auto) 1.25, Nucleated RBC % 0.2 06/19/19 04:45: Sodium 143, Potassium 4.2, Chloride 112 H, Carbon Dioxide 29.0, Anion Gap 2 L, BUN 105 H*, Creatinine 2.46 H, Estim Creat Clear Calc 21.00, Est GFR (MDRD) Af Amer 26 L, Est GFR (MDRD) Non-Af 21 L, BUN/Creatinine Ratio 42.7 H , Glucose 151 H, Calcium 8.5 06/19/19 04:45: Random Vancomycin 23.9 H Current Medications Acetaminophen (Tylenol Liquid) 650 mg GT Q4H PRN PRN PRN Reason: TEMP > 100.5 F Last Admin: 06/18/19 08:52 Dose: 650 mg Documented by: Albuterol Sulfate (Ventolin Aerosols) 2.5 mg INHALATION Q4H PRN PRN PRN Reason: WHEEZING Last Admin: 06/16/19 19:01 Dose: 2.5 mg Documented by: Amiodarone HCl (Cordarone) 400 mg GT DAILY [facility] Last Admin: 06/19/19 11:08 Dose: 400 mg Documented by: Chlorhexidine Gluconate () 15 ml PO BID [facility] Last Admin: 06/19/19 11:12 Dose: 15 ml Documented by: Chlorhexidine Gluconate () 1 each TOPICAL DAILY [facility] Last Admin: 06/19/19 11:12 Dose: 1 each Documented by: Enoxaparin Sodium (Lovenox) 30 mg SC DAILY [facility] Last Admin: 06/19/19 11:08 Dose: 30 mg Documented by: Famotidine (Pepcid) 20 mg GT DAILY [facility] Last Admin: 06/19/19 11:08 Dose: 20 mg Documented by: Vancomycin IV Pharmacy to Dose (1 ea/ Sodium Chloride) 500 mls @ 250 mls/hr IV PRN PRN; Protocol PRN Reason: Rx to Dose Enteral Nutritional Formula (Vital Af 1.2 Juma Liquid) 1,000 mls @ 55 mls/hr GT .[id number] [facility] Last Admin: 06/19/19 11:10 Dose: 55 mls/hr Documented by: Ceftriaxone Sodium 2 gm/ (Sodium Chloride) 50 mls @ 100 mls/hr IV Q24 [facility] Last Infusion: 06/18/19 11:00 Dose: Infused Documented by: Metronidazole (Flagyl) 500 mg in 100 mls @ 100 mls/hr IV Q8 [facility] Nutritional Formula (Thor - [place] Flavor) 1 packet GT BID [facility] Last Admin: 06/19/19 11:08 Dose: 1 packet Documented by: Senna/Docusate Sodium (Senokot-S, Laureen-Colace) 2 tablet GT DAILY PRN PRN PRN Reason: CONSTIPATION Sodium Chloride () 10 - 40 ml IV UD PRN PRN Reason: SALINE FLUSH Last Admin: 06/18/19 08:51 Dose: 20 ml Documented by: STROKE Vital Signs/Narrative: Vital Signs Temp Pulse Resp BP BP Pulse Ox 06/19/19 12:17 98.0 F 107 H 20 H 111/73 06/19/19 12:00 112 H 06/19/19 11:28 101 H 23 H 94 06/19/19 11:00 97.8 F 102 H 19 H 104/52 L 95 06/19/19 10:00 97.7 F L 84 19 H 111/53 L 96 06/19/19 09:00 97.5 F L 86 18 108/50 L 95 Medical Necessity - Tobacco Use Smoking Status: Smoker, status unknown Tobacco Use: Non-smoker Assessment/Plan All Active Problems Perirectal abscess (Acute) Severe sepsis (Acute) Acute respiratory failure with hypoxia and hypercapnia (Acute) Bilateral pneumonia (Acute) Infection due to [facility] coronavirus (Acute) 1. Acute hypoxic peripheral failure secondary to ARDS from COVID?19/severe sepsis/infected polymicrobial sacral decubitus ulcers with severe hidradenitis of the abdominal wall and perineal area/probable perirectal abscess/metabolic versus toxic encephalopathy -Continue with broad-spectrum antibiotics for her multiple polymicrobial infect ions, she has a urine culture with Tracey albicans, MRSA, enterococcus -Abdominal wound with Proteus, MRSA, corynebacterium -Decubitus ulcer with Proteus, MRSA, corynebacterium -Respiratory culture with MRSA -Continue with Vanco and Rocephin -still ventilated with an FiO2 of 35% and a PEEP of 8 -C. difficile test was negative 2. ABIGAIL -Started on dialysis -She is 6 L positive -Likely ATN at this point 3. DM 2 -Does not take any medications at home, will continue to monitor -Continue sliding scale insulin 4. HTN/chronic A. fib -We will continue with her amiodarone at 400, not currently on any anticoagulation -Does not take any blood pressure medications at the care home 5. Bipolar disorder/schizophrenia/PTSD -We will hold her benzodiazepine and loxapine DVT: Lovenox Inpatient E&M: [id number] [facility] Hosp L2
--- NOTE | 2019-06-19 12:58 | PN.ID_ITS ---
Patient Problems: Active and Suspected Problems Severe sepsis (Acute) Acute respiratory failure with hypoxia and hypercapnia (Acute) Bilateral pneumonia (Acute) Infection due to [facility] coronavirus (Acute) Subjective: HD this AM, diaphoretic. - Physical Exam Vitals/I&O's: Vital Signs Temp Pulse Resp BP Pulse Ox 98.0 F 107 H 20 H 111/73 94 06/19/19 12:17 06/19/19 12:17 06/19/19 12:17 06/19/19 12:17 06/19/19 11:28 Oxygen Flow Rate (L/min) 35 Oxygen Delivery Method Mechanical Ventilator Weight: 105 kg Body Mass Index (BMI) 39.4 Intake and Output for Last 24 Hours 06/17/19 06/18/19 06/19/19 23:59 23:59 23:59 Intake Total 2222.75 / 2631.75 2437 / 2861 848 / 848 Output Total 1105 / 1405 1200 / 1400 415 / 415 Balance 1117.75 / 1226.75 1237 / 1461 433 / 433 General: Non-Cooperative Lungs: Rhonchi Cardiovascular: Tachycardic Abdomen: Soft, Non Tender, Non-Distended Skin: No rashes Microbiology Past 72 Hours 06/13/19 13:15 Blood Culture (Wb) - Left Hand Blood Culture - Final No growth in 5 days. 06/13/19 13:15 Blood Culture (Wb) - Anticubital Right Blood Culture - Final No growth in 5 days. 06/18/19 09:00 Stool C. difficile DNA Amplification - Final Laboratory Results 06/18/19 22:22: Hep B Core Total Ab Pending 06/18/19 22:22: Hep Bs Antigen Non-Reactive, Hep Bs Antibody Non-Reactive 06/19/19 04:45: WBC 13.2 H, RBC 3.39 L, Hgb 9.3 L, Hct 30.4 L, MCV 89.7, MCH 27.4, MCHC 30.6 L, RDW Std Deviation 58.4 H, RDW Coeff of Bassam 18.1 H, Plt Count 142 L, MPV 11.5, Immature Gran % (Auto) 2.700 H, Neut % (Auto) 84.4 H, Lymph % (Auto) 9.5 L, [place] % (Auto) 2.8, Eos % (Auto) 0.4, Baso % (Auto) 0.2, Absolute Neuts (auto) 11.1 H, Absolute Lymphs (auto) 1.25, Nucleated RBC % 0.2 06/19/19 04:45: Sodium 143, Potassium 4.2, Chloride 112 H, Carbon Dioxide 29.0, Anion Gap 2 L, BUN 105 H*, Creatinine 2.46 H, Estim Creat Clear Calc 21.00, Est GFR (MDRD) Af Amer 26 L, Est GFR (MDRD) Non-Af 21 L, BUN/Creatinine Ratio 42.7 H , Glucose 151 H, Calcium 8.5 06/19/19 04:45: Random Vancomycin 23.9 H Current Medications Acetaminophen (Tylenol Liquid) 650 mg GT Q4H PRN PRN PRN Reason: TEMP > 100.5 F Last Admin: 06/18/19 08:52 Dose: 650 mg Documented by: Albuterol Sulfate (Ventolin Aerosols) 2.5 mg INHALATION Q4H PRN PRN PRN Reason: WHEEZING Last Admin: 06/16/19 19:01 Dose: 2.5 mg Documented by: Amiodarone HCl (Cordarone) 400 mg GT DAILY [facility] Last Admin: 06/19/19 11:08 Dose: 400 mg Documented by: Chlorhexidine Gluconate () 15 ml PO BID [facility] [place] Last Admin: 06/19/19 11:12 Dose: 15 ml Documented by: Chlorhexidine Gluconate () 1 each TOPICAL DAILY [facility] Last Admin: 06/19/19 11:12 Dose: 1 each Documented by: Enoxaparin Sodium (Lovenox) 30 mg SC DAILY [facility] [place] Last Admin: 06/19/19 11:08 Dose: 30 mg Documented by: Famotidine (Pepcid) 20 mg GT DAILY [facility] [place] Last Admin: 06/19/19 11:08 Dose: 20 mg Documented by: Vancomycin IV Pharmacy to Dose (1 ea/ Sodium Chloride) 500 mls @ 250 mls/hr IV PRN PRN; Protocol PRN Reason: Rx to Dose Enteral Nutritional Formula (Vital Af 1.2 Juma Liquid) 1,000 mls @ 55 mls/hr GT .[id number] [facility] [place] Last Admin: 06/19/19 11:10 Dose: 55 mls/hr Documented by: Ceftriaxone Sodium 2 gm/ (Sodium Chloride) 50 mls @ 100 mls/hr IV Q24 [facility] [place] Last Infusion: 06/18/19 11:00 Dose: Infused Documented by: Metronidazole (Flagyl) 500 mg in 100 mls @ 100 mls/hr IV Q8 [facility] Nutritional Formula (Thor - Woody Flavor) 1 packet GT BID [facility] Last Admin: 06/19/19 11:08 Dose: 1 packet Documented by: Senna/Docusate Sodium (Senokot-S, Laureen-Colace) 2 tablet GT DAILY PRN PRN PRN Reason: CONSTIPATION Sodium Chloride () 10 - 40 ml IV UD PRN PRN Reason: SALINE FLUSH Last Admin: 06/18/19 08:51 Dose: 20 ml Documented by: Zinc Sulfate (Zinc Sulfate) 220 mg GT TID [facility] [place] Medical Necessity - Tobacco Use Smoking Status: Smoker, status unknown Tobacco Use: Non-smoker Route of nutrition/ use of supplements: [] Nutritional Intake: [] IV Site: [] Siddiqi Catheter: [] - Assessment/Plan Antibiotics: [] Assessment/Plan: [] Active and Suspected Problems Severe sepsis (Acute) Acute respiratory failure with hypoxia and hypercapnia (Acute) Bilateral pneumonia (Acute) Infection due to [facility] coronavirus (Acute) COVID (+), severe sepsis, acute hypoxic resp failure, decubitus wounds - on vanc/ceftriaxone. Wound cx with mrsa, proteus, corynebacteria. QTC in 02/2019 was 540, so avoiding plaquenil/azithro. Still with fever intermittently. Cdiff neg. Will add flagyl. Prior CT showed multiple decubitus abscesses. Will follow, D/w Dr. Torres
--- NOTE | 2019-06-19 13:40 | PN.RENAL_ITS ---
Patient Problems: Active and Suspected Problems Severe sepsis (Acute) Acute respiratory failure with hypoxia and hypercapnia (Acute) Bilateral pneumonia (Acute) Infection due to [place] coronavirus (Acute) Subjective: no new events per nurse tolerated HD today Objective: no new events per nurse tolerated HD today - Physical Exam Vitals/I&O's: Vital Signs Temp Pulse Resp BP Pulse Ox 98.0 F 107 H 20 H 111/73 94 06/19/19 12:17 06/19/19 12:17 06/19/19 12:17 06/19/19 12:17 06/19/19 11:28 Oxygen Flow Rate (L/min) 35 Oxygen Delivery Method Mechanical Ventilator Weight: 105 kg Body Mass Index (BMI) 39.4 Intake and Output for Last 24 Hours 06/17/19 06/18/19 06/19/19 23:59 23:59 23:59 Intake Total 2222.75 / 2631.75 2437 / 2861 848 / 848 Output Total 1105 / 1405 1200 / 1400 415 / 415 Balance 1117.75 / 1226.75 1237 / 1461 433 / 433 Microbiology Past 72 Hours 06/13/19 13:15 Blood Culture (Wb) - Left Hand Blood Culture - Final No growth in 5 days. 06/13/19 13:15 Blood Culture (Wb) - Anticubital Right Blood Culture - Final No growth in 5 days. 06/18/19 09:00 Stool C. difficile DNA Amplification - Final Laboratory Results 06/18/19 22:22: Hep B Core Total Ab Pending 06/18/19 22:22: Hep Bs Antigen Non-Reactive, Hep Bs Antibody Non-Reactive 06/19/19 04:45: WBC 13.2 H, RBC 3.39 L, Hgb 9.3 L, Hct 30.4 L, MCV 89.7, MCH 27.4, MCHC 30.6 L, RDW Std Deviation 58.4 H, RDW Coeff of Bassam 18.1 H, Plt Count 142 L, MPV 11.5, Immature Gran % (Auto) 2.700 H, Neut % (Auto) 84.4 H, Lymph % (Auto) 9.5 L, [place] % (Auto) 2.8, Eos % (Auto) 0.4, Baso % (Auto) 0.2, Absolute Neuts (auto) 11.1 H, Absolute Lymphs (auto) 1.25, Nucleated RBC % 0.2 06/19/19 04:45: Sodium 143, Potassium 4.2, Chloride 112 H, Carbon Dioxide 29.0, Anion Gap 2 L, BUN 105 H*, Creatinine 2.46 H, Estim Creat Clear Calc 21.00, Est GFR (MDRD) Af Amer 26 L, Est GFR (MDRD) Non-Af 21 L, BUN/Creatinine Ratio 42.7 H , Glucose 151 H, Calcium 8.5 06/19/19 04:45: Random Vancomycin 23.9 H Current Medications Acetaminophen (Tylenol Liquid) 650 mg GT Q4H PRN PRN PRN Reason: TEMP > 100.5 F Last Admin: 06/18/19 08:52 Dose: 650 mg Documented by: Albuterol Sulfate (Ventolin Aerosols) 2.5 mg INHALATION Q4H PRN PRN PRN Reason: WHEEZING Last Admin: 06/16/19 19:01 Dose: 2.5 mg Documented by: Amiodarone HCl (Cordarone) 400 mg GT DAILY [facility] Last Admin: 06/19/19 11:08 Dose: 400 mg Documented by: Chlorhexidine Gluconate () 15 ml PO BID [facility] Last Admin: 06/19/19 11:12 Dose: 15 ml Documented by: Chlorhexidine Gluconate () 1 each TOPICAL DAILY [facility] Last Admin: 06/19/19 11:12 Dose: 1 each Documented by: Enoxaparin Sodium (Lovenox) 30 mg SC DAILY [facility] Last Admin: 06/19/19 11:08 Dose: 30 mg Documented by: Famotidine (Pepcid) 20 mg GT DAILY [facility] Last Admin: 06/19/19 11:08 Dose: 20 mg Documented by: Vancomycin IV Pharmacy to Dose (1 ea/ Sodium Chloride) 500 mls @ 250 mls/hr IV PRN PRN; Protocol PRN Reason: Rx to Dose Enteral Nutritional Formula (Vital Af 1.2 Juma Liquid) 1,000 mls @ 55 mls/hr GT .[id number] [facility] Last Admin: 06/19/19 11:10 Dose: 55 mls/hr Documented by: Ceftriaxone Sodium 2 gm/ (Sodium Chloride) 50 mls @ 100 mls/hr IV Q24 [facility] Last Infusion: 06/18/19 11:00 Dose: Infused Documented by: Metronidazole (Flagyl) 500 mg in 100 mls @ 100 mls/hr IV Q8 [facility] Nutritional Formula (Thor - [place] Flavor) 1 packet GT BID [facility] Last Admin: 06/19/19 11:08 Dose: 1 packet Documented by: Senna/Docusate Sodium (Senokot-S, Laureen-Colace) 2 tablet GT DAILY PRN PRN PRN Reason: CONSTIPATION Sodium Chloride () 10 - 40 ml IV UD PRN PRN Reason: SALINE FLUSH Last Admin: 06/18/19 08:51 Dose: 20 ml Documented by: Zinc Sulfate (Zinc Sulfate) 220 mg GT TID [facility] Medical Necessity - Tobacco Use Smoking Status: Smoker, status unknown Tobacco Use: Non-smoker Assessment/Plan All Active Problems Perirectal abscess (Acute) Severe sepsis (Acute) Acute respiratory failure with hypoxia and hypercapnia (Acute) Bilateral pneumonia (Acute) Infection due to [place] coronavirus (Acute) ABIGAIL likely ATN and AIN with COVID-19 and vanco toxicity hypernatremia resolved ARDS s/p intubation on vent COVID-19 continue BOAT HOP initiated yesterday had another HD session today for HD tomorrow Keep MAP>65 avoid nephrotoxins abx dosing per pharmacy appreciate urology input for the moderate left-sided hydronephrosis d/w RN Due to the current efforts to prevent transmission of COVID?19 and also the need to preserve PPE for other caregivers a [id number] encounter with the patient was not performed. That being said, all relevant records and diagnostic tests were reviewed including laboratory test and imaging. Please reference any relevant documentation elsewhere. Care will be coordinated with the primary service.
[2019-06-19] MEDS: metroNIDAZOLE 500 MG/100 ML BAG 100 MG IV ×2 (15:17→22:43)
[2019-06-19] MEDS: 0.9% Saline Lock 10 ML Syringe IV (16:54)
[2019-06-19 18:31] LABS: Vancomycin, Random Level 18.3 ug/mL (0.0-15.0)
[2019-06-20] VITALS (35 sets, daily range): BP systolic 86–144; BP diastolic 39–75; PULSE 72–104; RESP 15–32; TEMP 36.9–37.7; O2SAT 91–100
[2019-06-20 04:41] LABS: Absolute Neutrophil Count 9.6 X10^3/uL (2.0-7.7); Basophil# 0.02 X10^3/uL; Basophil% 0.2 % (0-1); Eosinophil# 0.07 X10^3/uL; Eosinophils% 0.6 % (0-5); Hematocrit 29.7 % (37-47); Hemoglobin 9.1 g/dL (12.0-15.0); Mean Corp Hgb Conc 30.6 g/dL (32-36); Mean Corpuscular Hgb 26.9 pg (27.0-32.0); Mean Corpuscular Volume 87.9 fL (81-99); Monocyte# 0.45 X10^3/uL; Monocyte% 3.7 % (0-10); NRBC Flagged by Analyzer 0.3 % (0-5); Neutrophil # 9.64 X10^3/uL (2.7-7.7); Platelet Count 155 K/mm3 (150-450); RBC Distribution Width CV 17.6 % (11.6-14.6); RBC Distribution Width SD 55.9 fl (35.1-43.9); Red Blood Count 3.38 M/mm3 (4.2-5.4); White Blood Count 12.2 K/mm3 (4.4-11.0)
[2019-06-20 04:55] LABS: BUN 89 mg/dL (7-18); Glucose 130 mg/dL (74-106)
[2019-06-20 04:56] LABS: ALB/GLOB Ratio 0.2 RATIO (0.9-2.4); AST(SGOT) 43 U/L (15-37); Alanine Aminotransfer ALT/SGPT 34 U/L (13-56); Albumin, Serum 1.4 g/dL (3.2-5.0); Alkaline Phosphatase 154 U/L (45-117); Anion Gap 6 (5-15); BUN/Creat Ratio 45.9 RATIO (10-20); Calcium,Total 8.1 mg/dL (8.5-10.1); Chloride 105 mmol/L (98-107); Creatinine, Serum 1.94 mg/dL (0.55-1.02); EST Glomerular Filtration Rate 28 mL/min (>60); Est Glom Filt Rate - Afr Amer 34 mL/min (>60); Estimated Creatinine Clearance 26.63 ml/min; Globulin 5.9 g/dL (2.2-4.2); Magnesium 2.1 mg/dL (1.6-2.6); Phosphorus 1.2 mg/dL (2.5-4.9); Potassium 4.3 mmol/L (3.5-5.1); Protein, Total 7.3 g/dL (6.4-8.2); Sodium Level 138 mmol/L (136-145)
[2019-06-20] MEDS: metroNIDAZOLE 500 MG/100 ML BAG 100 MG IV ×3 (05:26→22:15)
--- NOTE | 2019-06-20 07:09 | PN_ITS ---
Subjective: The patient was seen and examined at the bedside this morning. Events from the last 24 hours have been reviewed. The patient currently has a low-grade fever but remains hemodynamically stable. The patient has stable ventilator requirements with an FiO2 of 35% and PEEP of 5. The patient tolerated hemodialysis yesterday with ultrafiltration of 1.4 L. The patient is currently documented to be overall net +7.8 L for the hospital admission. Nursing staff did report that the patient has had increased endotracheal tube secretions. Objective: The patient's most recent lab work, culture data and imaging studies have all been personally reviewed. Blood cultures have shown no growth to date. Urine culture was positive for MRSA and Enterococcus faecalis. Abdominal wound culture was positive for Proteus mirabilis, MRSA and Corynebacterium. Buttock wound culture was positive for Proteus mirabilis, MRSA and Corynebacterium. Sputum culture was positive for MRSA. C. difficile testing was negative. General: - - Intubated and mechanically ventilated. HEENT: Atraumatic, Normocephalic Oral: Moist Mucosa Neck: Supple, No Nodes, Trachea Midline Lungs: Diminished, - - Scant rhonchi Cardiovascular: Regular rate, Regular Rhythm, Normal S1, Normal S2, - - Normal sinus rhythm on telemetry Abdomen: Bowel Sounds Present, Soft, Obese Extremities: No clubbing, No cyanosis, Edema Skin: - - No significant change from previous Musculoskeletal: No Muscle Wasting Neurological: - - The patient will open eyes but does not track or follow commands. Vital Signs Temp Pulse Resp BP Pulse Ox 99.2 F H 87 20 H 96/50 L 95 06/20/19 06:00 06/20/19 07:01 06/20/19 07:01 06/20/19 06:00 06/20/19 07:01 Oxygen Flow Rate (L/min) 35 Oxygen Delivery Method Mechanical Ventilator Weight: 229 lb 8.019 oz Body Mass Index (BMI) 39.4 Intake and Output for Last 24 Hours 06/18/19 06/19/19 06/20/19 23:59 23:59 23:59 Intake Total 2437 / 2861 2615 / 2615 483 / 483 Output Total 1200 / 1400 1660 / 1660 100 / 100 Balance 1237 / 1461 955 / 955 383 / 383 Labs (Last 48 Hours) 04/06/20 04/07/20 04/07/20 09:58 09:00 11:15 WBC RBC Hgb Hct MCV MCH MCHC RDW Std Deviation RDW Coeff of Bassam Plt Count MPV Immature Gran % (Auto) Neut % (Auto) Lymph % (Auto) [place] % (Auto) Eos % (Auto) Baso % (Auto) Absolute Neuts (auto) Absolute Lymphs (auto) Nucleated RBC % PT 16.6 H INR 1.4 Specimen Type ART Sample Site R RADIAL O2 % 40 Justo Test POS Respiration Rate 12 O2 Delivery Device Vent Vent Mode A-C Tidal Volume 400 POC PEEP 8 Blood Gas Notified Whom ICU MD Blood Gas Notified Time 958 Sodium 146 H Potassium 4.0 Chloride 116 H Carbon Dioxide 24.0 Anion Gap 6 BUN 133 H* Creatinine 3.06 H Estim Creat Clear Calc 16.88 Est GFR (MDRD) Af Amer 20 L Est GFR (MDRD) Non-Af 17 L BUN/Creatinine Ratio 43.5 H Glucose 134 H Calcium 8.2 L Phosphorus Magnesium Total Bilirubin AST ALT Alkaline Phosphatase Total Protein Albumin Globulin Albumin/Globulin Ratio Random Vancomycin Hep Bs Antigen Hep Bs Antibody Hep B Core Total Ab 06/18/19 06/18/19 06/19/19 22:22 22:22 04:45 WBC 13.2 H RBC 3.39 L Hgb 9.3 L Hct 30.4 L MCV 89.7 MCH 27.4 MCHC 30.6 L RDW Std Deviation 58.4 H RDW Coeff of Bassam 18.1 H Plt Count 142 L MPV 11.5 Immature Gran % (Auto) 2.700 H Neut % (Auto) 84.4 H Lymph % (Auto) 9.5 L Campbell % (Auto) 2.8 Eos % (Auto) 0.4 Baso % (Auto) 0.2 Absolute Neuts (auto) 11.1 H Absolute Lymphs (auto) 1.25 Nucleated RBC % 0.2 PT INR Specimen Type Sample Site O2 % Justo Test Respiration Rate O2 Delivery Device Vent Mode Tidal Volume POC PEEP Blood Gas Notified Whom Blood Gas Notified Time Sodium Potassium Chloride Carbon Dioxide Anion Gap BUN Creatinine Estim Creat Clear Calc Est GFR (MDRD) Af Amer Est GFR (MDRD) Non-Af BUN/Creatinine Ratio Glucose Calcium Phosphorus Magnesium Total Bilirubin AST ALT Alkaline Phosphatase Total Protein Albumin Globulin Albumin/Globulin Ratio Random Vancomycin Hep Bs Antigen Non-Reactive Hep Bs Antibody Non-Reactive Hep B Core Total Ab Pending 06/19/19 06/19/19 06/19/19 04:45 04:45 16:55 WBC RBC Hgb Hct MCV MCH MCHC RDW Std Deviation RDW Coeff of Bassam Plt Count MPV Immature Gran % (Auto) Neut % (Auto) Lymph % (Auto) [place] % (Auto) Eos % (Auto) Baso % (Auto) Absolute Neuts (auto) Absolute Lymphs (auto) Nucleated RBC % PT INR Specimen Type Sample Site O2 % Justo Test Respiration Rate O2 Delivery Device Vent Mode Tidal Volume POC PEEP Blood Gas Notified Whom Blood Gas Notified Time Sodium 143 Potassium 4.2 Chloride 112 H Carbon Dioxide 29.0 Anion Gap 2 L BUN 105 H* Creatinine 2.46 H Estim Creat Clear Calc 21.00 Est GFR (MDRD) Af Amer 26 L Est GFR (MDRD) Non-Af 21 L BUN/Creatinine Ratio 42.7 H Glucose 151 H Calcium 8.5 Phosphorus Magnesium Total Bilirubin AST ALT Alkaline Phosphatase Total Protein Albumin Globulin Albumin/Globulin Ratio Random Vancomycin 23.9 H 18.3 H Hep Bs Antigen Hep Bs Antibody Hep B Core Total Ab 06/20/19 06/20/19 06/20/19 04:30 04:30 04:30 WBC 12.2 H RBC 3.38 L Hgb 9.1 L Hct 29.7 L MCV 87.9 MCH 26.9 L MCHC 30.6 L RDW Std Deviation 55.9 H RDW Coeff of Bassam 17.6 H Plt Count 155 MPV 12.0 Immature Gran % (Auto) 2.500 H Neut % (Auto) 79.0 H Lymph % (Auto) 14.0 L [place] % (Auto) 3.7 Eos % (Auto) 0.6 Baso % (Auto) 0.2 Absolute Neuts (auto) 9.6 H Absolute Lymphs (auto) 1.70 Nucleated RBC % 0.3 PT INR Specimen Type Sample Site O2 % Justo Test Respiration Rate O2 Delivery Device Vent Mode Tidal Volume POC PEEP Blood Gas Notified Whom Blood Gas Notified Time Sodium 138 Potassium 4.3 Chloride 105 Carbon Dioxide 27.0 Anion Gap 6 BUN 89 H Creatinine 1.94 H Estim Creat Clear Calc 26.63 Est GFR (MDRD) Af Amer 34 L Est GFR (MDRD) Non-Af 28 L BUN/Creatinine Ratio 45.9 H Glucose 130 H Calcium 8.1 L Phosphorus 1.2 L Magnesium 2.1 Total Bilirubin 0.20 AST 43 H ALT 34 Alkaline Phosphatase 154 H Total Protein 7.3 Albumin 1.4 L Globulin 5.9 H Albumin/Globulin Ratio 0.2 L Random Vancomycin Hep Bs Antigen Hep Bs Antibody Hep B Core Total Ab Microbiology 06/13/19 13:15 Blood Culture (Wb) - Left Hand Blood Culture - Final No growth in 5 days. 06/13/19 13:15 Blood Culture (Wb) - Anticubital Right Blood Culture - Final No growth in 5 days. 06/18/19 09:00 Stool C. difficile DNA Amplification - Final Clinical Impression(s) from Imaging Studies Chest X-Ray 06/13/19 14:30 IMPRESSION: Infiltrates in the right lung as well as in the left mid lung. Follow-up is recommended. The tip of the endotracheal tube is at 4 cm proximal to the garret. Electronically Signed: Steve Fierro, at 14:55 EDT , Service support , Hip/Pelvis X-Ray 06/13/19 14:30 IMPRESSION: Degenerative changes of both hips as well as the sacroiliac joints. Electronically Signed: Steve Fierro, at 14:55 EDT , Service support , KUB X-Ray 06/13/19 14:30 IMPRESSION: The tip of the orogastric tube is seen in the distal stomach/pyloric region. Electronically Signed: Steve Fierro, at 14:53 EDT , Service support , Renal Ultrasound 06/17/19 12:36 IMPRESSION: 1.3 cm x 1.5 cm x 1.3 cm left renal cyst. Moderate degree of the left hydronephrosis. Distended urinary bladder. Electronically Signed: Steve Fierro at 15:35 EDT , Service support , Chest X-Ray 06/18/19 16:30 IMPRESSION: A dialysis catheter seen through the right IJ terminating in the lower SVC. No pneumothorax. No other change. Electronically Signed: Shiv Carr MD at 17:18 EDT , Service support , Medical Necessity - Tobacco Use Smoking Status: Smoker, status unknown Tobacco Use: Non-smoker Assessment/Plan All Active Problems Perirectal abscess (Acute) Severe sepsis (Acute) Acute respiratory failure with hypoxia and hypercapnia (Acute) Bilateral pneumonia (Acute) Infection due to [place] coronavirus (Acute) RECOMMENDATIONS: 1. Check ammonia and TSH level. 2. Continue hemodialysis per nephrology recommendations. 3. Obtain and resend sputum for culture. 4. Continue to withhold all sedating medications. 5. Continue antimicrobials per infectious diseases recommendations. 6. Continue tube feeds as tolerated. 7. Continue appropriate ICU prophylaxis. IMPRESSIONS: 1. Acute hypoxemic respiratory failure 2/2 ARDS due to COVID-19 infection combined with MRSA Pneumonia Continue current supportive measures with invasive mechanical ventilatory support, employing a lung protective strategy, along with antimicrobials per infectious diseases recommendations. Azithromycin and Plaquenil were avoided due to prolonged QTC at baseline. Continue to wean FiO2 and PEEP to maintain oxygen saturations at or above 90%. Although the patient's respiratory status has improved, her mental state is currently limiting her ability to attempt to wean her from invasive mechanical ventilatory support. 2. Severe sepsis secondary to COVID-19 Infection and MRSA Pneumonia Continue current supportive measures as noted above. The patient remains hemodynamically stable. 3. Acute kidney injury The patient developed worsening renal insufficiency over the course of her hospitalization. Concern for ATN in the setting of COVID infection. The patient has become progressively uremic, which has left her an encephalopathic state. Nephrology is currently following to assist with hemodialysis needs. Hopefully, the patient's mentation will continue to improve with ongoing clearance through dialysis. 4. Encephalopathy Concern for toxic metabolic encephalopathy, with underlying worsening uremia contributing. Nephrology is currently following to assist with hemodialysis needs. Continue to withhold all sedating medications. If the patient's mentation does not begin to improve in the near future, will need to consider dedicated head imaging study. 5. Diabetes mellitus/hypertension/schizoaffective disorder/morbid obesity Complicates care, management, recovery and prognosis. Continue sliding scale insulin coverage. TIME: 37 minutes of critical care time, independent of procedures, was spent addressing the patient's acute hypoxemic respiratory failure, ARDS secondary to coronavirus infection and MRSA pneumonia, severe sepsis, acute kidney injury, encephalopathy, review of all data and collaboration with the care team. [id number] [phone]) [phone] [id number] Critical care first hour
[2019-06-20 08:02] LABS: Thyroid Stim Hormone (TSH) 2.66 uIU/mL (0.358-3.74)
[2019-06-20 08:05] LABS: Hepatitis B Core Ab Total Negative (Negative)
[2019-06-20] MEDS: Famotidine 20 MG Tablet GT (09:14)
[2019-06-20] MEDS: 0.9% Saline Lock 10 ML Syringe IV (09:14)
[2019-06-20] MEDS: Vital AF 1.2 Cal Liquid 1,000 ML 55 ML GT (09:14)
[2019-06-20] MEDS: Enoxaparin 30 MG/0.3 ML Syringe SC (09:14)
[2019-06-20] MEDS: CHLORHEXIDINE GLUC 2% CLOTH 1 EACH TOWELETTE TOPICAL (09:15)
[2019-06-20] MEDS: Amiodarone 200 MG Tablet 400 MG GT (09:15)
[2019-06-20] MEDS: Chlorhexidine 15 ML PO ×2 (09:15→21:05)
--- NOTE | 2019-06-20 09:37 | PCM.RX.CS ---
Consult Pharmacy has been consulted to manage selected antiobiotic: Vancomycin Type of Consult: Follow-up Suspected Infection: Sepsis Prior Doses of Antibiotics Received/Current Regimen: Last dose was 2gm on 06.15.19. Labs: Sodium 138 mmol/L (136-145) 06/20/19 04:30 Potassium 4.3 mmol/L (3.5-5.1) 06/20/19 04:30 Chloride 105 mmol/L (98-107) 06/20/19 04:30 Carbon Dioxide 27.0 mmol/L (21.0-32.0) 06/20/19 04:30 Anion Gap 6 (5-15) 06/20/19 04:30 BUN 89 mg/dL (7-18) H 06/20/19 04:30 Creatinine 1.94 mg/dL (0.55-1.02) H 06/20/19 04:30 Est GFR (MDRD) Af Amer 34 mL/min (>60) L 06/20/19 04:30 Est GFR (MDRD) Non-Af 28 mL/min (>60) L 06/20/19 04:30 BUN/Creatinine Ratio 45.9 RATIO (10-20) H 06/20/19 04:30 Glucose 130 mg/dL (74-106) H 06/20/19 04:30 Vancomycin Trough 47.1 ug/mL (5.0-15.0) H 06/15/19 18:00 Random Vancomycin 18.3 ug/mL (0.0-15.0) H 06/19/19 16:55 Microbiology: Microbiology 06/13/19 13:15 Blood Culture (Wb) - Left Hand Blood Culture - Final No growth in 5 days. 06/13/19 13:15 Blood Culture (Wb) - Anticubital Right Blood Culture - Final No growth in 5 days. 06/18/19 09:00 Stool C. difficile DNA Amplification - Final 06/13/19 14:47 Urine Catheter - Siddiqi Urine Culture - Final Presumptive C albicans Meth. resistant Staph. aureus Enterococcus faecalis 06/13/19 18:00 Wound - Buttock Gram Stain - Final 06/13/19 18:00 Wound - Buttock Wound Culture - Final Proteus mirabilis Meth. resistant Staph. aureus Corynebacterium amycolatum 06/14/19 12:30 Sputum, Induced/[place]ukens Gram Stain - Final 06/14/19 12:30 Sputum, Induced/[place]ukens Respiratory Culture - Final Meth. resistant Staph. aureus 06/13/19 18:00 Wound - Abdominal Gram Stain - Final 06/13/19 18:00 Wound - Abdominal Wound Culture - Final Proteus mirabilis Meth. resistant Staph. aureus Corynebacterium amycolatum Weight used for dosin kg Estimated Creatinine Clearance: ~36ml/min Goal Trough: 15-20 mcg/mL Pharmacy Plan for Drug Dosing: Random level today shows level has now trended down to therapeutic range.Today's level was 18.3. Will give vancomycin 500mg iv x1 today after dialysis. Random level will be ordered pre-dialysis with next dialysis session. Pharmacy Service will continue to monitor and adjust dosing as required.
--- NOTE | 2019-06-20 10:27 | PN.ID_ITS ---
Patient Problems: Active and Suspected Problems Severe sepsis (Acute) Acute respiratory failure with hypoxia and hypercapnia (Acute) Bilateral pneumonia (Acute) Infection due to [facility] coronavirus (Acute) Subjective: No fever, mental status remains poor - Physical Exam Vitals/I&O's: Vital Signs Temp Pulse Resp BP Pulse Ox 99.2 F H 87 20 H 96/50 L 95 06/20/19 06:00 06/20/19 07:01 06/20/19 07:01 06/20/19 06:00 06/20/19 07:01 Oxygen Flow Rate (L/min) 35 Oxygen Delivery Method Mechanical Ventilator Weight: 104.1 kg Body Mass Index (BMI) 39.4 Intake and Output for Last 24 Hours 06/18/19 06/19/19 06/20/19 23:59 23:59 23:59 Intake Total 2437 / 2861 2615 / 2615 483 / 483 Output Total 1200 / 1400 1660 / 1660 100 / 100 Balance 1237 / 1461 955 / 955 383 / 383 General: Non-Cooperative Lungs: Clear to auscultation, Normal air movement Cardiovascular: Regular rate, Regular Rhythm Abdomen: Soft, Non Tender, Non-Distended Skin: No rashes Microbiology Past 72 Hours 06/13/19 13:15 Blood Culture (Wb) - Left Hand Blood Culture - Final No growth in 5 days. 06/13/19 13:15 Blood Culture (Wb) - Anticubital Right Blood Culture - Final No growth in 5 days. 06/18/19 09:00 Stool C. difficile DNA Amplification - Final Laboratory Results 06/18/19 22:22: Hep B Core Total Ab Negative 06/19/19 16:55: Random Vancomycin 18.3 H 06/20/19 04:30: WBC 12.2 H, RBC 3.38 L, Hgb 9.1 L, Hct 29.7 L, MCV 87.9, MCH 26.9 L, MCHC 30.6 L, RDW Std Deviation 55.9 H, RDW Coeff of Bassam 17.6 H, Plt Count 155, MPV 12.0, Immature Gran % (Auto) 2.500 H, Neut % (Auto) 79.0 H, Lymph % (Auto) 14.0 L, [place] % (Auto) 3.7, Eos % (Auto) 0.6, Baso % (Auto) 0.2, Absolute Neuts (auto) 9.6 H, Absolute Lymphs (auto) 1.70, Nucleated RBC % 0.3 06/20/19 04:30: Sodium 138, Potassium 4.3, Chloride 105, Carbon Dioxide 27.0, Anion Gap 6, BUN 89 H, Creatinine 1.94 H, Estim Creat Clear Calc 26.63, Est GFR (MDRD) Af Amer 34 L, Est GFR (MDRD) Non-Af 28 L, BUN/Creatinine Ratio 45.9 H, Glucose 130 H, Calcium 8.1 L, Magnesium 2.1, Total Bilirubin 0.20, AST 43 H, ALT 34, Alkaline Phosphatase 154 H, Total Protein 7.3, Albumin 1.4 L, Globulin 5.9 H , Albumin/Globulin Ratio 0.2 L 06/20/19 04:30: Phosphorus 1.2 L 06/20/19 04:30: TSH 2.66 06/20/19 09:10: Ammonia 18.0 Current Medications Acetaminophen (Tylenol Liquid) 650 mg GT Q4H PRN PRN PRN Reason: TEMP > 100.5 F Last Admin: 06/18/19 08:52 Dose: 650 mg Documented by: Albuterol Sulfate (Ventolin Aerosols) 2.5 mg INHALATION Q4H PRN PRN PRN Reason: WHEEZING Last Admin: 06/16/19 19:01 Dose: 2.5 mg Documented by: Amiodarone HCl (Cordarone) 400 mg GT DAILY [facility] Last Admin: 06/20/19 09:15 Dose: 400 mg Documented by: Chlorhexidine Gluconate () 15 ml PO BID [facility] Last Admin: 06/20/19 09:15 Dose: 15 ml Documented by: Chlorhexidine Gluconate () 1 each TOPICAL DAILY [facility] Last Admin: 06/20/19 09:15 Dose: 1 each Documented by: Enoxaparin Sodium (Lovenox) 30 mg SC DAILY [facility] Last Admin: 06/20/19 09:14 Dose: 30 mg Documented by: Famotidine (Pepcid) 20 mg GT DAILY [facility] Last Admin: 06/20/19 09:14 Dose: 20 mg Documented by: Vancomycin IV Pharmacy to Dose (1 ea/ Sodium Chloride) 500 mls @ 250 mls/hr IV PRN PRN; Protocol PRN Reason: Rx to Dose Enteral Nutritional Formula (Vital Af 1.2 Juma Liquid) 1,000 mls @ 55 mls/hr GT .[id number] [facility] Last Admin: 06/20/19 09:14 Dose: 55 mls/hr Documented by: Ceftriaxone Sodium 2 gm/ (Sodium Chloride) 50 mls @ 100 mls/hr IV Q24 [facility] Last Infusion: 06/19/19 13:30 Dose: Infused Documented by: Metronidazole (Flagyl) 500 mg in 100 mls @ 100 mls/hr IV Q8 [facility] Last Infusion: 06/20/19 06:26 Dose: Infused Documented by: Vancomycin HCl () 500 mg in 100 mls @ 100 mls/hr IV X1 ONE Stop: 06/20/19 16:59 Nutritional Formula (Thor - [place] Flavor) 1 packet GT BID [facility] Last Admin: 06/20/19 09:14 Dose: 1 packet Documented by: Senna/Docusate Sodium (Senokot-S, Laureen-Colace) 2 tablet GT DAILY PRN PRN PRN Reason: CONSTIPATION Sodium Chloride () 10 - 40 ml IV UD PRN PRN Reason: SALINE FLUSH Last Admin: 06/20/19 09:14 Dose: 10 ml Documented by: Zinc Sulfate (Zinc Sulfate) 220 mg GT TID [facility] Last Admin: 06/20/19 04:24 Dose: 220 mg Documented by: Medical Necessity - Tobacco Use Smoking Status: Smoker, status unknown Tobacco Use: Non-smoker Route of nutrition/ use of supplements: [] Nutritional Intake: [] IV Site: [] Siddiqi Catheter: [] - Assessment/Plan Antibiotics: [] Assessment/Plan: [] Active and Suspected Problems Severe sepsis (Acute) Acute respiratory failure with hypoxia and hypercapnia (Acute) Bilateral pneumonia (Acute) Infection due to [facility] coronavirus (Acute) COVID (+), severe sepsis, acute hypoxic resp failure, decubitus wounds - on vanc/ceftriaxone/flagyl. Wound cx with mrsa, proteus, corynebacteria. QTC in 02/2019 was 540, so avoided plaquenil/azithro. Still with fever intermittently. Cdiff neg. Prior CT showed multiple decubitus abscesses. Mental status not improving with HD, may need further imaging. Will follow, D/w Dr. Torres
--- NOTE | 2019-06-20 11:02 | CASEMGMT ---
Social Work SW participated in interdisciplinary rounds. Pt continues to be intubated, fails mobility screen. SW will continue to follow for d/c planning when appropriate. NADINE Gonzalez
--- NOTE | 2019-06-20 11:48 | PCM.PN.REN ---
Patient Problems: Active and Suspected Problems Severe sepsis (Acute) Acute respiratory failure with hypoxia and hypercapnia (Acute) Bilateral pneumonia (Acute) Infection due to [facility] coronavirus (Acute) Subjective: intubated ROS cannot be obtained - Physical Exam Vitals/I&O's: Vital Signs Temp Pulse Resp BP Pulse Ox 99.4 F H 87 29 H 104/59 L 95 06/20/19 08:00 06/20/19 11:00 06/20/19 11:00 06/20/19 11:00 06/20/19 11:00 Oxygen Flow Rate (L/min) 35 Oxygen Delivery Method Mechanical Ventilator Weight: 104.1 kg Body Mass Index (BMI) 39.4 Intake and Output for Last 24 Hours 06/18/19 06/19/19 06/20/19 23:59 23:59 23:59 Intake Total 2437 / 2861 2615 / 2615 633 / 633 Output Total 1200 / 1400 1660 / 1660 100 / 100 Balance 1237 / 1461 955 / 955 533 / 533 Microbiology Past 72 Hours 06/13/19 13:15 Blood Culture (Wb) - Left Hand Blood Culture - Final No growth in 5 days. 06/13/19 13:15 Blood Culture (Wb) - Anticubital Right Blood Culture - Final No growth in 5 days. 06/18/19 09:00 Stool C. difficile DNA Amplification - Final Laboratory Results 06/18/19 22:22: Hep B Core Total Ab Negative 06/19/19 16:55: Random Vancomycin 18.3 H 06/20/19 04:30: WBC 12.2 H, RBC 3.38 L, Hgb 9.1 L, Hct 29.7 L, MCV 87.9, MCH 26.9 L, MCHC 30.6 L, RDW Std Deviation 55.9 H, RDW Coeff of Bassam 17.6 H, Plt Count 155, MPV 12.0, Immature Gran % (Auto) 2.500 H, Neut % (Auto) 79.0 H, Lymph % (Auto) 14.0 L, [place] % (Auto) 3.7, Eos % (Auto) 0.6, Baso % (Auto) 0.2, Absolute Neuts (auto) 9.6 H, Absolute Lymphs (auto) 1.70, Nucleated RBC % 0.3 06/20/19 04:30: Sodium 138, Potassium 4.3, Chloride 105, Carbon Dioxide 27.0, Anion Gap 6, BUN 89 H, Creatinine 1.94 H, Estim Creat Clear Calc 26.63, Est GFR (MDRD) Af Amer 34 L, Est GFR (MDRD) Non-Af 28 L, BUN/Creatinine Ratio 45.9 H, Glucose 130 H, Calcium 8.1 L, Magnesium 2.1, Total Bilirubin 0.20, AST 43 H, ALT 34, Alkaline Phosphatase 154 H, Total Protein 7.3, Albumin 1.4 L, Globulin 5.9 H, Albumin/Globulin Ratio 0.2 L 06/20/19 04:30: Phosphorus 1.2 L 06/20/19 04:30: TSH 2.66 06/20/19 09:10: Ammonia 18.0 Current Medications Acetaminophen (Tylenol Liquid) 650 mg GT Q4H PRN PRN PRN Reason: TEMP > 100.5 F Last Admin: 06/18/19 08:52 Dose: 650 mg Documented by: Albuterol Sulfate (Ventolin Aerosols) 2.5 mg INHALATION Q4H PRN PRN PRN Reason: WHEEZING Last Admin: 06/16/19 19:01 Dose: 2.5 mg Documented by: Amiodarone HCl (Cordarone) 400 mg GT DAILY [facility] Last Admin: 06/20/19 09:15 Dose: 400 mg Documented by: Chlorhexidine Gluconate () 15 ml PO BID [facility] Last Admin: 06/20/19 09:15 Dose: 15 ml Documented by: Chlorhexidine Gluconate () 1 each TOPICAL DAILY [facility] Last Admin: 06/20/19 09:15 Dose: 1 each Documented by: Enoxaparin Sodium (Lovenox) 30 mg SC DAILY [facility] Last Admin: 06/20/19 09:14 Dose: 30 mg Documented by: Famotidine (Pepcid) 20 mg GT DAILY [facility] Last Admin: 06/20/19 09:14 Dose: 20 mg Documented by: Vancomycin IV Pharmacy to Dose (1 ea/ Sodium Chloride) 500 mls @ 250 mls/hr IV PRN PRN; Protocol PRN Reason: Rx to Dose Enteral Nutritional Formula (Vital Af 1.2 Juma Liquid) 1,000 mls @ 55 mls/hr GT .[id number] [facility] Last Admin: 06/20/19 09:14 Dose: 55 mls/hr Documented by: Ceftriaxone Sodium 2 gm/ (Sodium Chloride) 50 mls @ 100 mls/hr IV Q24 [facility] Last Infusion: 06/19/19 13:30 Dose: Infused Documented by: Metronidazole (Flagyl) 500 mg in 100 mls @ 100 mls/hr IV Q8 [facility] Last Infusion: 06/20/19 06:26 Dose: Infused Documented by: Vancomycin HCl () 500 mg in 100 mls @ 100 mls/hr IV X1 ONE Stop: 06/20/19 16:59 Nutritional Formula (Thor - [place] Flavor) 1 packet GT BID [facility] Last Admin: 06/20/19 09:14 Dose: 1 packet Documented by: Senna/Docusate Sodium (Senokot-S, Laureen-Colace) 2 tablet GT DAILY PRN PRN PRN Reason: CONSTIPATION Sodium Chloride () 10 - 40 ml IV UD PRN PRN Reason: SALINE FLUSH Last Admin: 06/20/19 09:14 Dose: 10 ml Documented by: Zinc Sulfate (Zinc Sulfate) 220 mg GT TID [facility] Last Admin: 06/20/19 04:24 Dose: 220 mg Documented by: Medical Necessity - Tobacco Use Smoking Status: Smoker, status unknown Tobacco Use: Non-smoker Assessment/Plan All Active Problems Perirectal abscess (Acute) Severe sepsis (Acute) Acute respiratory failure with hypoxia and hypercapnia (Acute) Bilateral pneumonia (Acute) Infection due to [place] coronavirus (Acute) ABIGAIL likely ATN and AIN with COVID-19 and vanco toxicity hypernatremia resolved ARDS s/p intubation on vent 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 Keep MAP>65 avoid nephrotoxins abx dosing per pharmacy appreciate urology input for the moderate left-sided hydronephrosis d/w RN and HD RN Due to the current efforts to prevent transmission of COVID?19 and also the need to preserve PPE for other caregivers a [id number] encounter with the patient was not performed. That being said, all relevant records and diagnostic tests were reviewed including laboratory test and imaging. Please reference any relevant documentation elsewhere. Care will be coordinated with the primary service.
--- NOTE | 2019-06-20 14:10 | DIALYSIS ---
Hemodialysis x 3 hours today, max flows, -2000ml off. Stable t/o and tolerated well. CVC closed with heparin to each lumen fill volume only of 1.3ml post tx and caps secured. Report to Iris CONDE at bedside.
[2019-06-20] MEDS: Vancomycin IV 500 MG/100 ML BAG 100 MG IV (15:59)
--- NOTE | 2019-06-20 16:53 | PCM.PN.HOSP ---
Patient Problems: Active and Suspected Problems Severe sepsis (Acute) Acute respiratory failure with hypoxia and hypercapnia (Acute) Bilateral pneumonia (Acute) Infection due to [place] coronavirus (Acute) Subjective: Intubated and unresponsive. She has not been on any sedation. Vitals/I&O's: Vital Signs Temp Pulse Resp BP Pulse Ox 99.2 F H 96 19 H 101/52 L 98 06/20/19 16:00 06/20/19 16:00 06/20/19 16:00 06/20/19 16:00 06/20/19 16:00 Oxygen Flow Rate (L/min) 35 Oxygen Delivery Method Mechanical Ventilator Weight: 229 lb 8.019 oz Body Mass Index (BMI) 39.4 Intake and Output for Last 24 Hours 06/18/19 06/19/19 06/20/19 23:59 23:59 23:59 Intake Total 2437 / 2861 2615 / 2615 1696 / 1696 Output Total 1200 / 1400 1660 / 1660 2150 / 2150 Balance 1237 / 1461 955 / 955 -454 / -454 General: - - Intubated and nonresponsive HEENT: Atraumatic, PERRLA, Normocephalic Oral: Moist Mucosa Neck: Supple, No JVD Lungs: Clear to auscultation, No wheeze, No rales, Diminished, Rhonchi Cardiovascular: Regular rate, Regular Rhythm, Normal S1, Normal S2, No murmurs Abdomen: Soft, Non Tender, Non-Distended, No Hepato-splenomegaly Extremities: No edema, Capillary Refill Less than 3 Seconds Skin: Ulcer/ Wound - Decubitus ulcer of her buttock Neurological: - - Intubated and nonresponsive Psych/Mental Status: - - Intubated and nonresponsive Microbiology Past 72 Hours 06/20/19 07:00 Sputum, Induced/Lukens Gram Stain - Final 06/13/19 13:15 Blood Culture (Wb) - Left Hand Blood Culture - Final No growth in 5 days. 06/13/19 13:15 Blood Culture (Wb) - Anticubital Right Blood Culture - Final No growth in 5 days. 06/18/19 09:00 Stool C. difficile DNA Amplification - Final Laboratory Results 06/18/19 22:22: Hep B Core Total Ab Negative 06/19/19 16:55: Random Vancomycin 18.3 H 06/20/19 04:30: WBC 12.2 H, RBC 3.38 L, Hgb 9.1 L, Hct 29.7 L, MCV 87.9, MCH 26.9 L, MCHC 30.6 L, RDW Std Deviation 55.9 H, RDW Coeff of Bassam 17.6 H, Plt Count 155, MPV 12.0, Immature Gran % (Auto) 2.500 H, Neut % (Auto) 79.0 H, Lymph % (Auto) 14.0 L, [place] % (Auto) 3.7, Eos % (Auto) 0.6, Baso % (Auto) 0.2, Absolute Neuts (auto) 9.6 H, Absolute Lymphs (auto) 1.70, Nucleated RBC % 0.3 06/20/19 04:30: Sodium 138, Potassium 4.3, Chloride 105, Carbon Dioxide 27.0, Anion Gap 6, BUN 89 H, Creatinine 1.94 H, Estim Creat Clear Calc 26.63, Est GFR (MDRD) Af Amer 34 L, Est GFR (MDRD) Non-Af 28 L, BUN/Creatinine Ratio 45.9 H, Glucose 130 H, Calcium 8.1 L, Magnesium 2.1, Total Bilirubin 0.20, AST 43 H, ALT 34, Alkaline Phosphatase 154 H, Total Protein 7.3, Albumin 1.4 L, Globulin 5.9 H, Albumin/Globulin Ratio 0.2 L 06/20/19 04:30: Phosphorus 1.2 L 06/20/19 04:30: TSH 2.66 06/20/19 09:10: Ammonia 18.0 Current Medications Acetaminophen (Tylenol Liquid) 650 mg GT Q4H PRN PRN PRN Reason: TEMP > 100.5 F Last Admin: 06/18/19 08:52 Dose: 650 mg Documented by: Albuterol Sulfate (Ventolin Aerosols) 2.5 mg INHALATION Q4H PRN PRN PRN Reason: WHEEZING Last Admin: 06/16/19 19:01 Dose: 2.5 mg Documented by: Amiodarone HCl (Cordarone) 400 mg GT DAILY [facility] Last Admin: 06/20/19 09:15 Dose: 400 mg Documented by: Chlorhexidine Gluconate () 15 ml PO BID [facility] Last Admin: 04/09/20 09:15 Dose: 15 ml Documented by: Chlorhexidine Gluconate () 1 each TOPICAL DAILY [facility] Last Admin: 06/20/19 09:15 Dose: 1 each Documented by: Enoxaparin Sodium (Lovenox) 30 mg SC DAILY [facility] Last Admin: 06/20/19 09:14 Dose: 30 mg Documented by: Famotidine (Pepcid) 20 mg GT DAILY [facility] Last Admin: 06/20/19 09:14 Dose: 20 mg Documented by: Vancomycin IV Pharmacy to Dose (1 ea/ Sodium Chloride) 500 mls @ 250 mls/hr IV PRN PRN; Protocol PRN Reason: Rx to Dose Enteral Nutritional Formula (Vital Af 1.2 Juma Liquid) 1,000 mls @ 55 mls/hr GT .[id number] [facility] Last Admin: 06/20/19 09:14 Dose: 55 mls/hr Documented by: Ceftriaxone Sodium 2 gm/ (Sodium Chloride) 50 mls @ 100 mls/hr IV Q24 [facility] Last Infusion: 06/20/19 14:18 Dose: Infused Documented by: Metronidazole (Flagyl) 500 mg in 100 mls @ 100 mls/hr IV Q8 [facility] Last Infusion: 06/20/19 15:41 Dose: Infused Documented by: Vancomycin HCl () 500 mg in 100 mls @ 100 mls/hr IV X1 ONE Stop: 06/20/19 16:59 Last Admin: 06/20/19 15:59 Dose: 100 mls/hr Documented by: Nutritional Formula (Thor - [place] Flavor) 1 packet GT BID [facility] Last Admin: 06/20/19 09:14 Dose: 1 packet Documented by: Senna/Docusate Sodium (Senokot-S, Laureen-Colace) 2 tablet GT DAILY PRN PRN PRN Reason: CONSTIPATION Sodium Chloride () 10 - 40 ml IV UD PRN PRN Reason: SALINE FLUSH Last Admin: 06/20/19 09:14 Dose: 10 ml Documented by: Zinc Sulfate (Zinc Sulfate) 220 mg GT TID [facility] Last Admin: 06/20/19 13:31 Dose: 220 mg Documented by: STROKE Vital Signs/Narrative: Vital Signs Temp Pulse Resp BP BP Pulse Ox 06/20/19 16:00 99.2 F H 96 19 H 101/52 L 98 06/20/19 15:54 95 06/20/19 15:00 91 22 H 117/54 L 93 06/20/19 14:00 93 22 H 139/62 H 94 06/20/19 13:45 99.8 F H 94 20 H 129/64 H 06/20/19 13:00 94 23 H 144/75 H 93 Medical Necessity - Tobacco Use Smoking Status: Smoker, status unknown Tobacco Use: Non-smoker Assessment/Plan All Active Problems Perirectal abscess (Acute) Severe sepsis (Acute) Acute respiratory failure with hypoxia and hypercapnia (Acute) Bilateral pneumonia (Acute) Infection due to [facility] coronavirus (Acute) 1. Acute hypoxic peripheral failure secondary to ARDS from COVID?19/severe sepsis/infected polymicrobial sacral decubitus ulcers with severe hidradenitis of the abdominal wall and perineal area/probable perirectal abscess/metabolic versus toxic encephalopathy -Continue with broad-spectrum antibiotics for her multiple polymicrobial infections, she has a urine culture with Tracey albicans, MRSA, enterococcus -Abdominal wound with Proteus, MRSA, corynebacterium -Decubitus ulcer with Proteus, MRSA, corynebacterium -Respiratory culture with MRSA -Continue with Vanco and Rocephin -still ventilated with an FiO2 of 35% and a PEEP of 8 -C. difficile test was negative 2. ABIGAIL -Started on dialysis, BUN has improved from 1 33-89 with dialysis -She is 6 L positive -Likely ATN at this point 3. DM 2 -Does not take any medications at home, will continue to monitor -Continue sliding scale insulin 4. HTN/chronic A. fib -We will continue with her amiodarone at 400, not currently on any anticoagulation -Does not take any blood pressure medications at the residential 5. Bipolar disorder/schizophrenia/PTSD -We will hold her benzodiazepine and loxapine DVT: Lovenox Inpatient E&M: 78399 Subs Hosp L2
[2019-06-21] VITALS (38 sets, daily range): BP systolic 93–149; BP diastolic 44–106; PULSE 71–120; RESP 11–39; TEMP 36.7–38; O2SAT 91–98
[2019-06-21] MEDS: Vital AF 1.2 Cal Liquid 1,000 ML 55 ML GT (04:54)
[2019-06-21] MEDS: metroNIDAZOLE 500 MG/100 ML BAG 100 MG IV ×3 (04:56→21:10)
[2019-06-21 05:08] LABS: Basophil# 0.05 X10^3/uL; Basophil% 0.4 % (0-1); Eosinophil# 0.08 X10^3/uL; Eosinophils% 0.7 % (0-5); Hematocrit 28.3 % (37-47); Hemoglobin 8.8 g/dL (12.0-15.0); Lymphocyte % 16.5 % (19-41); Mean Corp Hgb Conc 31.1 g/dL (32-36); Mean Corpuscular Hgb 26.7 pg (27.0-32.0); Mean Corpuscular Volume 85.8 fL (81-99); Mean Platelet Vol. 11.9 fl (6.2-12.0); Monocyte# 0.49 X10^3/uL; NRBC Flagged by Analyzer 0.8 % (0-5); Neutrophil # 9.02 X10^3/uL (2.7-7.7); Neutrophil % 74.5 % (47-70); Platelet Count 170 K/mm3 (150-450); RBC Distribution Width CV 17.1 % (11.6-14.6); RBC Distribution Width SD 52.5 fl (35.1-43.9); White Blood Count 12.1 K/mm3 (4.4-11.0)
[2019-06-21 05:18] LABS: Anion Gap 6 (5-15); BUN 69 mg/dL (7-18); BUN/Creat Ratio 40.6 RATIO (10-20); Calcium,Total 7.9 mg/dL (8.5-10.1); Chloride 103 mmol/L (98-107); EST Glomerular Filtration Rate 33 mL/min (>60); Est Glom Filt Rate - Afr Amer 39 mL/min (>60); Estimated Creatinine Clearance 30.39 ml/min; Glucose 127 mg/dL (74-106); Sodium Level 137 mmol/L (136-145)
--- NOTE | 2019-06-21 06:31 | PN_ITS ---
Subjective: The patient was seen and examined at the bedside this morning. Events from the last 24 hours have been reviewed. The patient continues to have low-grade fevers. She is mildly tachycardic this morning but remains hemodynamically stable. The patient remains on assist control mode of mechanical ventilation with an FiO2 requirement of 35% and PEEP of 5. Unfortunately, her mentation remains largely unchanged from previous. BUN and creatinine are improving. Objective: The patient's most recent lab work, culture data and imaging studies have all been personally reviewed. Blood cultures have shown no growth to date. Urine culture was positive for MRSA and Enterococcus faecalis. Abdominal wound culture was positive for Proteus mirabilis, MRSA and Corynebacterium. Buttock wound culture was positive for Proteus mirabilis, MRSA and Corynebacterium. Sputum culture was positive for MRSA. C. difficile testing was negative. General: - - Intubated and mechanically ventilated HEENT: Atraumatic, Normocephalic Oral: Dry Mucosa, - - Endotracheal and OG tubes in place Neck: Supple, No Nodes, Trachea Midline Lungs: No rhonchi, No wheeze, No rales, Diminished, Tachypneic Cardiovascular: Regular rate, Regular Rhythm, Normal S1, Normal S2, No murmurs Abdomen: Bowel Sounds Present, Soft, Non Tender, Obese Extremities: No clubbing, No cyanosis, Edema Skin: - - No change from previous Musculoskeletal: No Muscle Wasting Lymphatic: No Cervical, Supraclavicular, or Inguinal Adenopathy Neurological: - - Neurologically unchanged from previous. Will not follow commands at this time. Psych/Mental Status: Flat Affect Vital Signs Temp Pulse Resp BP Pulse Ox 99.7 F H 90 19 H 98/49 L 96 06/21/19 06:00 06/21/19 06:00 06/21/19 06:00 06/21/19 06:00 06/21/19 06:00 Oxygen Flow Rate (L/min) 35 Oxygen Delivery Method Mechanical Ventilator Weight: 226 lb 3.108 oz Body Mass Index (BMI) 39.4 Intake and Output for Last 24 Hours 06/19/19 06/20/19 06/21/19 23:59 23:59 23:59 Intake Total 2615 / 2615 2970 / 3120 643 / 643 Output Total 1660 / 1660 2200 / 2200 30 / 30 Balance 955 / 955 770 / 920 613 / 613 Labs (Last 48 Hours) 06/18/19 06/18/19 06/19/19 22:22 22:22 16:55 WBC RBC Hgb Hct MCV MCH MCHC RDW Std Deviation RDW Coeff of Bassam Plt Count MPV Immature Gran % (Auto) Neut % (Auto) Lymph % (Auto) [place] % (Auto) Eos % (Auto) Baso % (Auto) Absolute Neuts (auto) Absolute Lymphs (auto) Nucleated RBC % Sodium Potassium Chloride Carbon Dioxide Anion Gap BUN Creatinine Estim Creat Clear Calc Est GFR (MDRD) Af Amer Est GFR (MDRD) Non-Af BUN/Creatinine Ratio Glucose Calcium Phosphorus Magnesium Total Bilirubin AST ALT Alkaline Phosphatase Ammonia Total Protein Albumin Globulin Albumin/Globulin Ratio TSH Random Vancomycin 18.3 H Hep Bs Antigen Non-Reactive Hep Bs Antibody Non-Reactive Hep B Core Total Ab Negative 06/20/19 06/20/19 06/20/19 04:30 04:30 04:30 WBC 12.2 H RBC 3.38 L Hgb 9.1 L Hct 29.7 L MCV 87.9 MCH 26.9 L MCHC 30.6 L RDW Std Deviation 55.9 H RDW Coeff of Bassam 17.6 H Plt Count 155 MPV 12.0 Immature Gran % (Auto) 2.500 H Neut % (Auto) 79.0 H Lymph % (Auto) 14.0 L [place] % (Auto) 3.7 Eos % (Auto) 0.6 Baso % (Auto) 0.2 Absolute Neuts (auto) 9.6 H Absolute Lymphs (auto) 1.70 Nucleated RBC % 0.3 Sodium 138 Potassium 4.3 Chloride 105 Carbon Dioxide 27.0 Anion Gap 6 BUN 89 H Creatinine 1.94 H Estim Creat Clear Calc 26.63 Est GFR (MDRD) Af Amer 34 L Est GFR (MDRD) Non-Af 28 L BUN/Creatinine Ratio 45.9 H Glucose 130 H Calcium 8.1 L Phosphorus 1.2 L Magnesium 2.1 Total Bilirubin 0.20 AST 43 H ALT 34 Alkaline Phosphatase 154 H Ammonia Total Protein 7.3 Albumin 1.4 L Globulin 5.9 H Albumin/Globulin Ratio 0.2 L TSH Random Vancomycin Hep Bs Antigen Hep Bs Antibody Hep B Core Total Ab 06/20/19 06/20/19 06/21/19 04:30 09:10 04:35 WBC 12.1 H RBC 3.30 L Hgb 8.8 L Hct 28.3 L MCV 85.8 MCH 26.7 L MCHC 31.1 L RDW Std Deviation 52.5 H RDW Coeff of Bassam 17.1 H Plt Count 170 MPV 11.9 Immature Gran % (Auto) 3.900 H Neut % (Auto) 74.5 H Lymph % (Auto) 16.5 L [place] % (Auto) 4.0 Eos % (Auto) 0.7 Baso % (Auto) 0.4 Absolute Neuts (auto) 9.0 H Absolute Lymphs (auto) 2.00 Nucleated RBC % 0.8 Sodium Potassium Chloride Carbon Dioxide Anion Gap BUN Creatinine Estim Creat Clear Calc Est GFR (MDRD) Af Amer Est GFR (MDRD) Non-Af BUN/Creatinine Ratio Glucose Calcium Phosphorus Magnesium Total Bilirubin AST ALT Alkaline Phosphatase Ammonia 18.0 Total Protein Albumin Globulin Albumin/Globulin Ratio TSH 2.66 Random Vancomycin Hep Bs Antigen Hep Bs Antibody Hep B Core Total Ab 06/21/19 04:35 WBC RBC Hgb Hct MCV MCH MCHC RDW Std Deviation RDW Coeff of Bassam Plt Count MPV Immature Gran % (Auto) Neut % (Auto) Lymph % (Auto) [place] % (Auto) Eos % (Auto) Baso % (Auto) Absolute Neuts (auto) Absolute Lymphs (auto) Nucleated RBC % Sodium 137 Potassium 4.0 Chloride 103 Carbon Dioxide 28.0 Anion Gap 6 BUN 69 H Creatinine 1.70 H Estim Creat Clear Calc 30.39 Est GFR (MDRD) Af Amer 39 L Est GFR (MDRD) Non-Af 33 L BUN/Creatinine Ratio 40.6 H Glucose 127 H Calcium 7.9 L Phosphorus Magnesium Total Bilirubin AST ALT Alkaline Phosphatase Ammonia Total Protein Albumin Globulin Albumin/Globulin Ratio TSH Random Vancomycin Hep Bs Antigen Hep Bs Antibody Hep B Core Total Ab Microbiology 06/20/19 07:00 Sputum, Induced/Lukens Gram Stain - Final Clinical Impression(s) from Imaging Studies Chest X-Ray 06/13/19 14:30 IMPRESSION: Infiltrates in the right lung as well as in the left mid lung. Follow-up is recommended. The tip of the endotracheal tube is at 4 cm proximal to the garret. Electronically Signed: Steve Fierro, at 14:55 EDT , Service support , Hip/Pelvis X-Ray 06/13/19 14:30 IMPRESSION: Degenerative changes of both hips as well as the sacroiliac joints. Electronically Signed: Steve Sri, at 14:55 EDT , Service support , KUB X-Ray 06/13/19 14:30 IMPRESSION: The tip of the orogastric tube is seen in the distal stomach/pyloric region. Electronically Signed: Steve Sri, at 14:53 EDT , Service support , Renal Ultrasound 06/17/19 12:36 IMPRESSION: 1.3 cm x 1.5 cm x 1.3 cm left renal cyst. Moderate degree of the left hydronephrosis. Distended urinary bladder. Electronically Signed: Steve Sri, at 15:35 EDT , Service support , Chest X-Ray 06/18/19 16:30 IMPRESSION: A dialysis catheter seen through the right IJ terminating in the lower SVC. No pneumothorax. No other change. Electronically Signed: Shiv Carr MD at 17:18 EDT , Service support , Medical Necessity - Tobacco Use Smoking Status: Smoker, status unknown Tobacco Use: Non-smoker Assessment/Plan All Active Problems Perirectal abscess (Acute) Severe sepsis (Acute) Acute respiratory failure with hypoxia and hypercapnia (Acute) Bilateral pneumonia (Acute) Infection due to [place] coronavirus (Acute) RECOMMENDATIONS: 1. Continue current supportive measures with invasive mechanical ventilatory support. Wean FiO2 to maintain oxygen saturations at or above 90%. 2. Reattempt spontaneous breathing trial today. 3. Continue tube feeds. 4. Continue hemodialysis per nephrology recommendations. 5. Continue to withhold all sedating medications. 6. Continue appropriate ICU prophylaxis IMPRESSIONS: 1. Acute hypoxemic respiratory failure 2/2 ARDS due to COVID-19 infection combined with MRSA Pneumonia Continue current supportive measures with invasive mechanical ventilatory support, employing a lung protective strategy, along with antimicrobials per infectious diseases recommendations. Azithromycin and Plaquenil were avoided due to prolonged QTC at baseline. Continue to wean FiO2 and PEEP to maintain oxygen saturations at or above 90%. Although the patient's respiratory status has improved, her mental state is currently limiting her ability to attempt to wean her from invasive mechanical ventilatory support. 2. Severe sepsis secondary to COVID-19 Infection and MRSA Pneumonia Continue current supportive measures as noted above. The patient remains hemodynamically stable. 3. Acute kidney injury The patient developed worsening renal insufficiency over the course of her hospitalization. Concern for ATN in the setting of COVID infection. The patient has become progressively uremic, which has left her an encephalopathic state. Nephrology is currently following to assist with hemodialysis needs. Hopefully, the patient's mentation will continue to improve with ongoing clearance through dialysis. 4. Encephalopathy Concern for toxic metabolic encephalopathy, with underlying worsening uremia contributing. Nephrology is currently following to assist with hemodialysis needs. Continue to withhold all sedating medications. If the patient's mentation does not begin to improve in the near future, will need to consider dedicated head imaging study. 5. Diabetes mellitus/hypertension/schizoaffective disorder/morbid obesity Complicates care, management, recovery and prognosis. Continue sliding scale insulin coverage. TIME: 37minutes of critical care time, independent of procedures, was spent addressing the patient's acute hypoxemic respiratory failure, ARDS secondary to coronavirus infection and MRSA pneumonia, severe sepsis, acute kidney injury, encephalopathy, review of all data and collaboration with the care team. [phone] Critical care first hour
[2019-06-21] MEDS: Chlorhexidine 15 ML PO ×2 (09:26→21:10)
[2019-06-21] MEDS: CHLORHEXIDINE GLUC 2% CLOTH 1 EACH TOWELETTE TOPICAL (09:26)
[2019-06-21] MEDS: Amiodarone 200 MG Tablet 400 MG GT (10:12)
[2019-06-21] MEDS: Enoxaparin 30 MG/0.3 ML Syringe SC (10:13)
[2019-06-21] MEDS: Famotidine 20 MG Tablet GT (10:13)
--- NOTE | 2019-06-21 10:32 | CASEMGMT ---
Social Work Note SW participated in ICU Rounds. Pt is still intubated, does however pass mobility today, should be able to work with PT/OT some today. Pt will need pre-cert to return to [place]. SW to continue to follow for discharge planning. Yaneth Benitez FURNACE COMBUSTION ANALYST, BACK HOE OPERATOR
[2019-06-21 11:43] LABS: Vancomycin, Random Level 19.3 ug/mL (0.0-15.0)
--- NOTE | 2019-06-21 12:05 | PCM.RX.CS ---
Consult Pharmacy has been consulted to manage selected antiobiotic: Vancomycin Type of Consult: Follow-up Labs: Sodium 137 mmol/L (136-145) 06/21/19 04:35 Potassium 4.0 mmol/L (3.5-5.1) 06/21/19 04:35 Chloride 103 mmol/L (98-107) 06/21/19 04:35 Carbon Dioxide 28.0 mmol/L (21.0-32.0) 06/21/19 04:35 Anion Gap 6 (5-15) 06/21/19 04:35 BUN 69 mg/dL (7-18) H 06/21/19 04:35 Creatinine 1.70 mg/dL (0.55-1.02) H 06/21/19 04:35 Est GFR (MDRD) Af Amer 39 mL/min (>60) L 06/21/19 04:35 Est GFR (MDRD) Non-Af 33 mL/min (>60) L 06/21/19 04:35 BUN/Creatinine Ratio 40.6 RATIO (10-20) H 06/21/19 04:35 Glucose 127 mg/dL (74-106) H 06/21/19 04:35 Vancomycin Trough 47.1 ug/mL (5.0-15.0) H 06/15/19 18:00 Random Vancomycin 19.3 ug/mL (0.0-15.0) H 06/21/19 10:30 Microbiology: Microbiology 06/20/19 07:00 Sputum, Induced/Lukens Gram Stain - Final 06/13/19 13:15 Blood Culture (Wb) - Left Hand Blood Culture - Final No growth in 5 days. 06/13/19 13:15 Blood Culture (Wb) - Anticubital Right Blood Culture - Final No growth in 5 days. 06/18/19 09:00 Stool C. difficile DNA Amplification - Final 06/13/19 14:47 Urine Catheter - Siddiqi Urine Culture - Final Presumptive C albicans Meth. resistant Staph. aureus Enterococcus faecalis 06/13/19 18:00 Wound - Buttock Gram Stain - Final 06/13/19 18:00 Wound - Buttock Wound Culture - Final Proteus mirabilis Meth. resistant Staph. aureus Corynebacterium amycolatum 06/14/19 12:30 Sputum, Induced/Lukens Gram Stain - Final 06/14/19 12:30 Sputum, Induced/Lukens Respiratory Culture - Final Meth. resistant Staph. aureus 06/13/19 18:00 Wound - Abdominal Gram Stain - Final 06/13/19 18:00 Wound - Abdominal Wound Culture - Final Proteus mirabilis Meth. resistant Staph. aureus Corynebacterium amycolatum Goal Trough: 15-20 mcg/mL Pharmacy Plan for Drug Dosing: Pt's predialysis random level resulted at 19.3. Recommend a 500mg x1 dose of Vancomycin to be given after dialysis on 06/20. will check another random level on 06/21 at 0555 in case pt has dialysis. Pharmacy Service will continue to monitor and adjust dosing as required. Follow-Up Labs: Trough Vancomycin - 06/21 @0555
--- NOTE | 2019-06-21 12:33 | PN.RENAL_ITS ---
Patient Problems: Active and Suspected Problems Severe sepsis (Acute) Acute respiratory failure with hypoxia and hypercapnia (Acute) Bilateral pneumonia (Acute) Infection due to [place] coronavirus (Acute) Subjective: the patient does not follow commands and is intubated ROS cannot be obtained - Physical Exam Vitals/I&O's: Vital Signs Temp Pulse Resp BP Pulse Ox 99.4 F H 96 37 H 139/106 H 98 06/21/19 11:00 06/21/19 11:24 06/21/19 11:00 06/21/19 11:00 06/21/19 11:00 Oxygen Flow Rate (L/min) 35 Oxygen Delivery Method Mechanical Ventilator Weight: 102.6 kg Body Mass Index (BMI) 39.4 Intake and Output for Last 24 Hours 06/19/19 06/20/19 06/21/19 23:59 23:59 23:59 Intake Total 2615 / 2615 2970 / 3120 1763 / 1763 Output Total 1660 / 1660 2200 / 2200 45 / 45 Balance 955 / 955 770 / 920 1718 / 1718 Microbiology Past 72 Hours 06/20/19 07:00 Sputum, Induced/Lukens Gram Stain - Final 06/20/19 07:00 Sputum, Induced/Lukens Respiratory Culture - Preliminary Staphylococcus aureus 06/13/19 13:15 Blood Culture (Wb) - Left Hand Blood Culture - Final No growth in 5 days. 06/13/19 13:15 Blood Culture (Wb) - Anticubital Right Blood Culture - Final No growth in 5 days. 06/18/19 09:00 Stool C. difficile DNA Amplification - Final Laboratory Results 06/21/19 04:35: WBC 12.1 H, RBC 3.30 L, Hgb 8.8 L, Hct 28.3 L, MCV 85.8, MCH 26.7 L, MCHC 31.1 L, RDW Std Deviation 52.5 H, RDW Coeff of Bassam 17.1 H, Plt Count 170, MPV 11.9, Immature Gran % (Auto) 3.900 H, Neut % (Auto) 74.5 H, Lymph % (Auto) 16.5 L, [place] % (Auto) 4.0, Eos % (Auto) 0.7, Baso % (Auto) 0.4, Absolute Neuts (auto) 9.0 H, Absolute Lymphs (auto) 2.00, Nucleated RBC % 0.8 06/21/19 04:35: Sodium 137, Potassium 4.0, Chloride 103, Carbon Dioxide 28.0, Anion Gap 6, BUN 69 H, Creatinine 1.70 H, Estim Creat Clear Calc 30.39, Est GFR (MDRD) Af Amer 39 L, Est GFR (MDRD) Non-Af 33 L, BUN/Creatinine Ratio 40.6 H, Glucose 127 H, Calcium 7.9 L 06/21/19 10:30: Random Vancomycin 19.3 H Current Medications Acetaminophen (Tylenol Liquid) 650 mg GT Q4H PRN PRN PRN Reason: TEMP > 100.5 F Last Admin: 06/18/19 08:52 Dose: 650 mg Documented by: Albuterol Sulfate (Ventolin Aerosols) 2.5 mg INHALATION Q4H PRN PRN PRN Reason: WHEEZING Last Admin: 06/16/19 19:01 Dose: 2.5 mg Documented by: Amiodarone HCl (Cordarone) 400 mg GT DAILY [facility] Last Admin: 06/21/19 10:12 Dose: 400 mg Documented by: Chlorhexidine Gluconate () 15 ml PO BID [facility] Last Admin: 06/21/19 09:26 Dose: 15 ml Documented by: Chlorhexidine Gluconate () 1 each TOPICAL DAILY [facility] Last Admin: 06/21/19 09:26 Dose: 1 each Documented by: Enoxaparin Sodium (Lovenox) 30 mg SC DAILY [facility] Last Admin: 06/21/19 10:13 Dose: 30 mg Documented by: Famotidine (Pepcid) 20 mg GT DAILY [facility] Last Admin: 06/21/19 10:13 Dose: 20 mg Documented by: Vancomycin IV Pharmacy to Dose (1 ea/ Sodium Chloride) 500 mls @ 250 mls/hr IV PRN PRN; Protocol PRN Reason: Rx to Dose Enteral Nutritional Formula (Vital Af 1.2 Juma Liquid) 1,000 mls @ 55 mls/hr GT .[id number] [facility] Last Admin: 06/21/19 04:54 Dose: 55 mls/hr Documented by: Ceftriaxone Sodium 2 gm/ (Sodium Chloride) 50 mls @ 100 mls/hr IV Q24 [facility] Last Infusion: 06/21/19 11:12 Dose: Infused Documented by: Metronidazole (Flagyl) 500 mg in 100 mls @ 100 mls/hr IV Q8 [facility] Last Infusion: 06/21/19 05:56 Dose: Infused Documented by: Vancomycin HCl () 500 mg in 100 mls @ 100 mls/hr IV X1 ONE Stop: 06/21/19 15:59 Nutritional Formula (Thor - [place] Flavor) 1 packet GT BID [facility] Last Admin: 06/21/19 10:13 Dose: 1 packet Documented by: Senna/Docusate Sodium (Senokot-S, Laureen-Colace) 2 tablet GT DAILY PRN PRN PRN Reason: CONSTIPATION Sodium Chloride () 10 - 40 ml IV UD PRN PRN Reason: SALINE FLUSH Last Admin: 06/20/19 09:14 Dose: 10 ml Documented by: Zinc Sulfate (Zinc Sulfate) 220 mg GT TID [facility] Last Admin: 06/21/19 04:40 Dose: 220 mg Documented by: Medical Necessity - Tobacco Use Smoking Status: Smoker, status unknown Tobacco Use: Non-smoker Assessment/Plan All Active Problems Perirectal abscess (Acute) Severe sepsis (Acute) Acute respiratory failure with hypoxia and hypercapnia (Acute) Bilateral pneumonia (Acute) Infection due to [place] coronavirus (Acute) ABIGAIL likely ATN and AIN with COVID-19 and vanco toxicity hypernatremia resolved ARDS s/p intubation on vent 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 Keep MAP>65 avoid nephrotoxins abx dosing per pharmacy appreciate urology input for the moderate left-sided hydronephrosis d/w dr. Torres and RN and HD RN Due to the current efforts to prevent transmission of COVID?19 and also the need to preserve PPE for other caregivers a [id number] encounter with the patient was not performed. That being said, all relevant records and diagnostic tests were reviewed including laboratory test and imaging. Please reference any rel evant documentation elsewhere. Care will be coordinated with the primary service.
--- NOTE | 2019-06-21 13:58 | PN.ID_ITS ---
Patient Problems: Active and Suspected Problems Severe sepsis (Acute) Acute respiratory failure with hypoxia and hypercapnia (Acute) Bilateral pneumonia (Acute) Infection due to [facility] coronavirus (Acute) Subjective: No fever, on vent - Physical Exam Vitals/I&O's: Vital Signs Temp Pulse Resp BP Pulse Ox 98.9 F 93 33 H 110/58 L 95 06/21/19 13:00 06/21/19 13:00 06/21/19 13:00 06/21/19 13:00 06/21/19 13:00 Oxygen Flow Rate (L/min) 35 Oxygen Delivery Method Mechanical Ventilator Weight: 102.6 kg Body Mass Index (BMI) 39.4 Intake and Output for Last 24 Hours 06/19/19 06/20/19 06/21/19 23:59 23:59 23:59 Intake Total 2615 / 2615 2970 / 3120 1763 / 1763 Output Total 1660 / 1660 2200 / 2200 45 / 45 Balance 955 / 955 770 / 920 1718 / 1718 General: No apparent distress Lungs: Diminished Cardiovascular: Regular rate, Regular Rhythm Abdomen: Soft, Non Tender, Non-Distended Skin: No rashes Microbiology Past 72 Hours 06/20/19 07:00 Sputum, Induced/Lukens Gram Stain - Final 06/20/19 07:00 Sputum, Induced/Lukens Respiratory Culture - Preliminary Staphylococcus aureus 06/13/19 13:15 Blood Culture (Wb) - Left Hand Blood Culture - Final No growth in 5 days. 06/13/19 13:15 Blood Culture (Wb) - Anticubital Right Blood Culture - Final No growth in 5 days. 06/18/19 09:00 Stool C. difficile DNA Amplification - Final Laboratory Results 06/21/19 04:35: WBC 12.1 H, RBC 3.30 L, Hgb 8.8 L, Hct 28.3 L, MCV 85.8, MCH 26.7 L, MCHC 31.1 L, RDW Std Deviation 52.5 H, RDW Coeff of Bassam 17.1 H, Plt Count 170, MPV 11.9, Immature Gran % (Auto) 3.900 H, Neut % (Auto) 74.5 H, Lymph % (Auto) 16.5 L, [place] % (Auto) 4.0, Eos % (Auto) 0.7, Baso % (Auto) 0.4, Absolute Neuts (auto) 9.0 H, Absolute Lymphs (auto) 2.00, Nucleated RBC % 0.8 06/21/19 04:35: Sodium 137, Potassium 4.0, Chloride 103, Carbon Dioxide 28.0, Anion Gap 6, BUN 69 H, Creatinine 1.70 H, Estim Creat Clear Calc 30.39, Est GFR (MDRD) Af Amer 39 L, Est GFR (MDRD) Non-Af 33 L, BUN/Creatinine Ratio 40.6 H, Glucose 127 H, Calcium 7.9 L 06/21/19 10:30: Random Vancomycin 19.3 H Current Medications Acetaminophen (Tylenol Liquid) 650 mg GT Q4H PRN PRN PRN Reason: TEMP > 100.5 F Last Admin: 06/18/19 08:52 Dose: 650 mg Documented by: Albuterol Sulfate (Ventolin Aerosols) 2.5 mg INHALATION Q4H PRN PRN PRN Reason: WHEEZING Last Admin: 06/16/19 19:01 Dose: 2.5 mg Documented by: Amiodarone HCl (Cordarone) 400 mg GT DAILY [facility] Last Admin: 06/21/19 10:12 Dose: 400 mg Documented by: Chlorhexidine Gluconate () 15 ml PO BID [facility] Last Admin: 06/21/19 09:26 Dose: 15 ml Documented by: Chlorhexidine Gluconate () 1 each TOPICAL DAILY [facility] Last Admin: 06/21/19 09:26 Dose: 1 each Documented by: Enoxaparin Sodium (Lovenox) 30 mg SC DAILY [facility] Last Admin: 06/21/19 10:13 Dose: 30 mg Documented by: Famotidine (Pepcid) 20 mg GT DAILY [facility] Last Admin: 06/21/19 10:13 Dose: 20 mg Documented by: Vancomycin IV Pharmacy to Dose (1 ea/ Sodium Chloride) 500 mls @ 250 mls/hr IV PRN PRN; Protocol PRN Reason: Rx to Dose Enteral Nutritional Formula (Vital Af 1.2 Juma Liquid) 1,000 mls @ 55 mls/hr GT .[id number] [facility] Last Admin: 06/21/19 04:54 Dose: 55 mls/hr Documented by: Ceftriaxone Sodium 2 gm/ (Sodium Chloride) 50 mls @ 100 mls/hr IV Q24 [facility] Last Infusion: 06/21/19 11:12 Dose: Infused Documented by: Metronidazole (Flagyl) 500 mg in 100 mls @ 100 mls/hr IV Q8 [facility] Last Admin: 06/21/19 13:30 Dose: 100 mls/hr Documented by: Vancomycin HCl () 500 mg in 100 mls @ 100 mls/hr IV X1 ONE Stop: 06/21/19 15:59 Nutritional Formula (Thor - Solen Flavor) 1 packet GT BID [facility] Last Admin: 06/21/19 10:13 Dose: 1 packet Documented by: Senna/Docusate Sodium (Senokot-S, Laureen-Colace) 2 tablet GT DAILY PRN PRN PRN Reason: CONSTIPATION Sodium Chloride () 10 - 40 ml IV UD PRN PRN Reason: SALINE FLUSH Last Admin: 06/20/19 09:14 Dose: 10 ml Documented by: Zinc Sulfate (Zinc Sulfate) 220 mg GT TID [facility] Last Admin: 06/21/19 13:53 Dose: 220 mg Documented by: Medical Necessity - Tobacco Use Smoking Status: Smoker, status unknown Tobacco Use: Non-smoker Route of nutrition/ use of supplements: [] Nutritional Intake: [] IV Site: [] Siddiqi Catheter: [] - Assessment/Plan Antibiotics: [] Assessment/Plan: [] Active and Suspected Problems Severe sepsis (Acute) Acute respiratory failure with hypoxia and hypercapnia (Acute) Bilateral pneumonia (Acute) Infection due to [facility] coronavirus (Acute) COVID (+), severe sepsis, acute hypoxic resp failure, decubitus wounds - on vanc/ceftriaxone/flagyl. Wound cx with mrsa, proteus, corynebacteria. QTC in 02/2019 was 540, so avoided plaquenil/azithro. Fever resolved. Cdiff neg. Prior CT showed multiple decubitus abscesses. Sputum still with staph aureus. Will follow, D/w Dr. Torres
--- NOTE | 2019-06-21 17:31 | DIALYSIS ---
HD x 3 hours complete. Tolerated tx fairly well. Ran on 4k bath. UF of 2000ml. Used right IJ catheter. Catheter is very positional. Lines reversed during tx. Catheter closed with heparin per fill volume. Caps placed. Dressing intact. Report was given to AMAYA Stein.
[2019-06-21] MEDS: Vancomycin IV 500 MG/100 ML BAG 100 MG IV (18:05)
[2019-06-22] VITALS (36 sets, daily range): BP systolic 93–157; BP diastolic 42–69; PULSE 79–106; RESP 16–37; TEMP 37.1–37.6; O2SAT 91–99
[2019-06-22] MEDS: Vital AF 1.2 Cal Liquid 1,000 ML 55 ML GT ×2 (02:22→20:52)
[2019-06-22 04:21] LABS: Anion Gap 8 (5-15); BUN 52 mg/dL (7-18); BUN/Creat Ratio 33.8 RATIO (10-20); Chloride 101 mmol/L (98-107); Creatinine, Serum 1.54 mg/dL (0.55-1.02); EST Glomerular Filtration Rate 37 mL/min (>60); Est Glom Filt Rate - Afr Amer 44 mL/min (>60); Estimated Creatinine Clearance 33.55 ml/min; Glucose 141 mg/dL (74-106); Potassium 4.2 mmol/L (3.5-5.1); Sodium Level 135 mmol/L (136-145)
[2019-06-22 04:29] LABS: Absolute Lymphocyte Count 1.83 X10^3/uL (0.83-4.51); Absolute Neutrophil Count 9.9 X10^3/uL (2.0-7.7); Basophil# 0.06 X10^3/uL; Basophil% 0.5 % (0-1); Eosinophil# 0.08 X10^3/uL; Eosinophils% 0.6 % (0-5); Hematocrit 30.3 % (37-47); Hemoglobin 9.7 g/dL (12.0-15.0); Lymphocyte # 1.83 X10^3/ul (4.0); Lymphocyte % 13.9 % (19-41); Mean Corpuscular Hgb 27.4 pg (27.0-32.0); Mean Corpuscular Volume 85.6 fL (81-99); Monocyte% 4.6 % (0-10); NRBC Flagged by Analyzer 0.6 % (0-5); Neutrophil # 9.94 X10^3/uL (2.7-7.7); Neutrophil % 75.8 % (47-70); Platelet Count 190 K/mm3 (150-450); RBC Distribution Width CV 16.9 % (11.6-14.6); RBC Distribution Width SD 50.4 fl (35.1-43.9); Red Blood Count 3.54 M/mm3 (4.2-5.4); White Blood Count 13.1 K/mm3 (4.4-11.0)
[2019-06-22] MEDS: metroNIDAZOLE 500 MG/100 ML BAG 100 MG IV ×3 (05:23→20:46)
--- NOTE | 2019-06-22 06:12 | PCM.PN.INT ---
Subjective: The patient was seen and examined at the bedside this morning. Events from the last 24 hours have been reviewed. The patient continues to have low-grade fevers but remains hemodynamically stable. FiO2 requirement is stable at 35%. The patient did quite well yesterday afternoon on a spontaneous breathing trial. Hemodialysis was completed yesterday with 2 L of fluid removed. Objective: The patient's most recent lab work, culture data and imaging studies have all been personally reviewed. Blood cultures have shown no growth to date. Urine culture was positive for MRSA and Enterococcus faecalis. Abdominal wound culture was positive for Proteus mirabilis, MRSA and Corynebacterium. Buttock wound culture was positive for Proteus mirabilis, MRSA and Corynebacterium. Sputum culture was positive for MRSA. C. difficile testing was negative. General: - - Remains intubated and mechanically ventilated HEENT: Atraumatic, Normocephalic Oral: Moist Mucosa, - - Stable endotracheal and OG tubes Neck: Supple, No Nodes, Trachea Midline, - - Temporary hemodialysis catheter in place Lungs: No rhonchi, No wheeze, No rales, Diminished Cardiovascular: Regular rate, Regular Rhythm, Normal S1, Normal S2, No murmurs Abdomen: Bowel Sounds Present, Soft, Non Tender, Obese Extremities: No clubbing, No cyanosis, Edema Skin: - - No significant change from previous Musculoskeletal: No Muscle Wasting Lymphatic: No Cervical, Supraclavicular, or Inguinal Adenopathy Neurological: - - No focal neurological deficits. The patient will still not follow simple commands. Psych/Mental Status: Flat Affect Vital Signs Temp Pulse Resp BP Pulse Ox 99.4 F H 86 26 H 157/63 H 96 06/22/19 06:00 06/22/19 06:00 06/22/19 06:00 06/22/19 06:00 06/22/19 06:00 Oxygen Flow Rate (L/min) 35 Oxygen Delivery Method Mechanical Ventilator Weight: 227 lb 11.8 oz Body Mass Index (BMI) 39.4 Intake and Output for Last 24 Hours 06/20/19 06/21/19 06/22/19 23:59 23:59 23:59 Intake Total 2970 / 3120 3121.33 / 3591.33 548.33 / 548.33 Output Total 2200 / 2200 60 / 110 50 / 50 Balance 770 / 920 3061.33 / 3481.33 498.33 / 498.33 Labs (Last 48 Hours) 06/18/19 06/20/19 06/20/19 22:22 04:30 09:10 WBC RBC Hgb Hct MCV MCH MCHC RDW Std Deviation RDW Coeff of Bassam Plt Count MPV Immature Gran % (Auto) Neut % (Auto) Lymph % (Auto) [place] % (Auto) Eos % (Auto) Baso % (Auto) Absolute Neuts (auto) Absolute Lymphs (auto) Nucleated RBC % Sodium Potassium Chloride Carbon Dioxide Anion Gap BUN Creatinine Estim Creat Clear Calc Est GFR (MDRD) Af Amer Est GFR (MDRD) Non-Af BUN/Creatinine Ratio Glucose Calcium Ammonia 18.0 TSH 2.66 Random Vancomycin Hep B Core Total Ab Negative 06/21/19 06/21/19 06/21/19 04:35 04:35 10:30 WBC 12.1 H RBC 3.30 L Hgb 8.8 L Hct 28.3 L MCV 85.8 MCH 26.7 L MCHC 31.1 L RDW Std Deviation 52.5 H RDW Coeff of Bassam 17.1 H Plt Count 170 MPV 11.9 Immature Gran % (Auto) 3.900 H Neut % (Auto) 74.5 H Lymph % (Auto) 16.5 L [place] % (Auto) 4.0 Eos % (Auto) 0.7 Baso % (Auto) 0.4 Absolute Neuts (auto) 9.0 H Absolute Lymphs (auto) 2.00 Nucleated RBC % 0.8 Sodium 137 Potassium 4.0 Chloride 103 Carbon Dioxide 28.0 Anion Gap 6 BUN 69 H Creatinine 1.70 H Estim Creat Clear Calc 30.39 Est GFR (MDRD) Af Amer 39 L Est GFR (MDRD) Non-Af 33 L BUN/Creatinine Ratio 40.6 H Glucose 127 H Calcium 7.9 L Ammonia TSH Random Vancomycin 19.3 H Hep B Core Total Ab 06/22/19 06/22/19 03:55 03:55 WBC 13.1 H RBC 3.54 L Hgb 9.7 L Hct 30.3 L MCV 85.6 MCH 27.4 MCHC 32.0 RDW Std Deviation 50.4 H RDW Coeff of Bassam 16.9 H Plt Count 190 MPV 12.0 Immature Gran % (Auto) 4.600 H Neut % (Auto) 75.8 H Lymph % (Auto) 13.9 L [place] % (Auto) 4.6 Eos % (Auto) 0.6 Baso % (Auto) 0.5 Absolute Neuts (auto) 9.9 H Absolute Lymphs (auto) 1.83 Nucleated RBC % 0.6 Sodium 135 L Potassium 4.2 Chloride 101 Carbon Dioxide 26.0 Anion Gap 8 BUN 52 H Creatinine 1.54 H Estim Creat Clear Calc 33.55 Est GFR (MDRD) Af Amer 44 L Est GFR (MDRD) Non-Af 37 L BUN/Creatinine Ratio 33.8 H Glucose 141 H Calcium 8.0 L Ammonia TSH Random Vancomycin Hep B Core Total Ab Microbiology 06/20/19 07:00 Sputum, Induced/Lukens Gram Stain - Final 06/20/19 07:00 Sputum, Induced/Lukens Respiratory Culture - Preliminary Staphylococcus aureus Clinical Impression(s) from Imaging Studies Chest X-Ray 06/13/19 14:30 IMPRESSION: Infiltrates in the right lung as well as in the left mid lung. Follow-up is recommended. The tip of the endotracheal tube is at 4 cm proximal to the garret. Electronically Signed: Steve Fierro, at 14:55 EDT , Service support , Hip/Pelvis X-Ray 06/13/19 14:30 IMPRESSION: Degenerative changes of both hips as well as the sacroiliac joints. Electronically Signed: Steve Fierro, at 14:55 EDT , Service support , KUB X-Ray 06/13/19 14:30 IMPRESSION: The tip of the orogastric tube is seen in the distal stomach/pyloric region. Electronically Signed: Steve Fierro, at 14:53 EDT , Service support , Renal Ultrasound 06/17/19 12:36 IMPRESSION: 1.3 cm x 1.5 cm x 1.3 cm left renal cyst. Moderate degree of the left hydronephrosis. Distended urinary bladder. Electronically Signed: Steve Sri, at 15:35 EDT , Service support , Chest X-Ray 06/18/19 16:30 IMPRESSION: A dialysis catheter seen through the right IJ terminating in the lower SVC. No pneumothorax. No other change. Electronically Signed: Shiv Carr MD at 17:18 EDT , Service support , Medical Necessity - Tobacco Use Smoking Status: Smoker, status unknown Tobacco Use: Non-smoker Assessment/Plan All Active Problems Perirectal abscess (Acute) Severe sepsis (Acute) Acute respiratory failure with hypoxia and hypercapnia (Acute) Bilateral pneumonia (Acute) Infection due to [place] coronavirus (Acute) RECOMMENDATIONS: 1. Continue current supportive measures with invasive mechanical ventilatory support. Wean FiO2 to maintain oxygen saturations at or above 90%. 2. Continue patient on spontaneous mode of mechanical ventilation throughout the day. Place back on assist control tonight. 3. Continue tube feeds. 4. Continue hemodialysis per nephrology recommendations. 5. Continue to withhold all sedating medications. 6. Continue appropriate ICU prophylaxis. 7. We will discuss goals of care with patient's family, prior to considering extubation. IMPRESSIONS: 1. Acute hypoxemic respiratory failure 2/2 ARDS due to COVID-19 infection combined with MRSA Pneumonia Continue current supportive measures with invasive mechanical ventilatory support, employing a lung protective strategy, along with antimicrobials per infectious diseases recommendations. Azithromycin and Plaquenil were avoided due to prolonged QTC at baseline. Continue to wean FiO2 and PEEP to maintain oxygen saturations at or above 90%. Although the patient's respiratory status has improved, her mental state is currently limiting her ability to attempt to wean her from invasive mechanical ventilatory support. 2. Severe sepsis secondary to COVID-19 Infection and MRSA Pneumonia Continue current supportive measures as noted above. The patient remains hemodynamically stable. 3. Acute kidney injury The patient developed worsening renal insufficiency over the course of her hospitalization. Concern for ATN in the setting of COVID infection. The patient has become progressively uremic, which has left her an encephalopathic state. Nephrology is currently following to assist with hemodialysis needs. Hopefully, the patient's mentation will continue to improve with ongoing clearance through dialysis. 4. Encephalopathy Concern for toxic metabolic encephalopathy, with underlying worsening uremia contributing. Nephrology is currently following to assist with hemodialysis needs. Continue to withhold all sedating medications. If the patient's mentation does not begin to improve in the near future, will need to consider dedicated head imaging study. 5. Diabetes mellitus/hypertension/schizoaffective disorder/morbid obesity Complicates care, management, recovery and prognosis. Continue sliding scale insulin coverage. TIME: 34 minutes of critical care time, independent of procedures, was spent addressing the patient's acute hypoxemic respiratory failure, ARDS secondary to coronavirus infection and MRSA pneumonia, severe sepsis, acute kidney injury, encephalopathy, review of all data and collaboration with the care team. ([id number])
[2019-06-22] MEDS: Famotidine 20 MG Tablet GT (08:56)
[2019-06-22] MEDS: Amiodarone 200 MG Tablet 400 MG GT (08:57)
[2019-06-22] MEDS: Chlorhexidine 15 ML PO ×2 (08:57→20:45)
[2019-06-22] MEDS: CHLORHEXIDINE GLUC 2% CLOTH 1 EACH TOWELETTE TOPICAL (08:57)
[2019-06-22] MEDS: Enoxaparin 30 MG/0.3 ML Syringe SC (08:57)
[2019-06-22 10:58] LABS: Vancomycin, Random Level 22.4 ug/mL (0.0-15.0)
--- NOTE | 2019-06-22 12:16 | PCM.RX.CS ---
Consult Pharmacy has been consulted to manage selected antiobiotic: Vancomycin Type of Consult: Follow-up Suspected Infection: Other Prior Doses of Antibiotics Received/Current Regimen: Vancomycin 500mg IV x1 post dialysis on 06/21/19 Labs: Sodium 135 mmol/L (136-145) L 06/22/19 03:55 Potassium 4.2 mmol/L (3.5-5.1) 06/22/19 03:55 Chloride 101 mmol/L (98-107) 06/22/19 03:55 Carbon Dioxide 26.0 mmol/L (21.0-32.0) 06/22/19 03:55 Anion Gap 8 (5-15) 06/22/19 03:55 BUN 52 mg/dL (7-18) H 06/22/19 03:55 Creatinine 1.54 mg/dL (0.55-1.02) H 06/22/19 03:55 Est GFR (MDRD) Af Amer 44 mL/min (>60) L 06/22/19 03:55 Est GFR (MDRD) Non-Af 37 mL/min (>60) L 06/22/19 03:55 BUN/Creatinine Ratio 33.8 RATIO (10-20) H 06/22/19 03:55 Glucose 141 mg/dL (74-106) H 06/22/19 03:55 Vancomycin Trough 47.1 ug/mL (5.0-15.0) H 06/15/19 18:00 Random Vancomycin 22.4 ug/mL (0.0-15.0) H 06/22/19 09:45 Microbiology: Microbiology 06/20/19 07:00 Sputum, Induced/Lukens Gram Stain - Final 06/20/19 07:00 Sputum, Induced/Lukens Respiratory Culture - Final Meth. resistant Staph. aureus 06/13/19 13:15 Blood Culture (Wb) - Left Hand Blood Culture - Final No growth in 5 days. 06/13/19 13:15 Blood Culture (Wb) - Anticubital Right Blood Culture - Final No growth in 5 days. 06/18/19 09:00 Stool C. difficile DNA Amplification - Final 06/13/19 14:47 Urine Catheter - Siddiqi Urine Culture - Final Presumptive C albicans Meth. resistant Staph. aureus Enterococcus faecalis 06/13/19 18:00 Wound - Buttock Gram Stain - Final 06/13/19 18:00 Wound - Buttock Wound Culture - Final Proteus mirabilis Meth. resistant Staph. aureus Corynebacterium amycolatum 06/14/19 12:30 Sputum, Induced/Lukens Gram Stain - Final 06/14/19 12:30 Sputum, Induced/Lukens Respiratory Culture - Final Meth. resistant Staph. aureus 06/13/19 18:00 Wound - Abdominal Gram Stain - Final 06/13/19 18:00 Wound - Abdominal Wound Culture - Final Proteus mirabilis Meth. resistant Staph. aureus Corynebacterium amycolatum Goal Trough: 15-20 mcg/mL Pharmacy Plan for Drug Dosing: Pt's random level resulted at 22.4. Recommend not giving a dose today (06/22/19), and drawing another random level in the morning of 06/22 in case of dialysis. Pharmacy Service will continue to monitor and adjust dosing as required. Follow-Up Labs: Trough Vancomycin - 06/23/19 at 0555
--- NOTE | 2019-06-22 12:48 | CM.UR ---
Participated in interdisciplinary rounds this am. Patient is intubated on vent and currently on spontaneous mode. per Dr. Torres wants to leave on this mode during the day and switch back to AC overnight. Then try SBT tomorrrow and possibly extubate. Wants to increase her chances of not having to be re-intubated. Plan is to return to [place] upon dc from hospital. Pierre Jarrett RN, CCM.
--- NOTE | 2019-06-22 13:43 | PCM.PN.HOSP ---
Patient Problems: Active and Suspected Problems Severe sepsis (Acute) Acute respiratory failure with hypoxia and hypercapnia (Acute) Bilateral pneumonia (Acute) Infection due to [place] coronavirus (Acute) Subjective: Intubated has not been on any sedation. No issues overnight Vitals/I&O's: Vital Signs Temp Pulse Resp BP Pulse Ox 99.4 F H 106 H 28 H 113/49 L 99 06/22/19 12:00 06/22/19 12:00 06/22/19 12:00 06/22/19 12:00 06/22/19 12:00 Oxygen Flow Rate (L/min) 35 Oxygen Delivery Method Mechanical Ventilator Weight: 227 lb 11.8 oz Body Mass Index (BMI) 39.4 Intake and Output for Last 24 Hours 06/20/19 06/21/19 06/22/19 23:59 23:59 23:59 Intake Total 2970 / 3120 3121.33 / 3591.33 598.33 / 598.33 Output Total 2200 / 2200 60 / 110 175 / 175 Balance 770 / 920 3061.33 / 3481.33 423.33 / 423.33 General: - - Intubated and nonresponsive HEENT: Atraumatic, PERRLA, Normocephalic Oral: Moist Mucosa Neck: Supple, No JVD Lungs: Clear to auscultation, No wheeze, No rales, Diminished, Rhonchi Cardiovascular: Regular rate, Regular Rhythm, Normal S1, Normal S2, No murmurs Abdomen: Soft, Non Tender, Non-Distended, No Hepato-splenomegaly Extremities: No edema, Capillary Refill Less than 3 Seconds Skin: Ulcer/ Wound - Decubitus ulcer of her buttock Neurological: - - Intubated and nonresponsive Psych/Mental Status: - - Intubated and nonresponsive Microbiology Past 72 Hours 06/20/19 07:00 Sputum, Induced/Lukens Gram Stain - Final 06/20/19 07:00 Sputum, Induced/Lukens Respiratory Culture - Final Meth. resistant Staph. aureus Laboratory Results 06/22/19 03:55: WBC 13.1 H, RBC 3.54 L, Hgb 9.7 L, Hct 30.3 L, MCV 85.6, MCH 27.4, MCHC 32.0, RDW Std Deviation 50.4 H, RDW Coeff of Bassam 16.9 H, Plt Count 190, MPV 12.0, Immature Gran % (Auto) 4.600 H, Neut % (Auto) 75.8 H, Lymph % (Auto) 13.9 L, [place] % (Auto) 4.6, Eos % (Auto) 0.6, Baso % (Auto) 0.5, Absolute Neuts (auto) 9.9 H, Absolute Lymphs (auto) 1.83, Nucleated RBC % 0.6 06/22/19 03:55: Sodium 135 L, Potassium 4.2, Chloride 101, Carbon Dioxide 26.0, Anion Gap 8, BUN 52 H, Creatinine 1.54 H, Estim Creat Clear Calc 33.55, Est GFR (MDRD) Af Amer 44 L, Est GFR (MDRD) Non-Af 37 L, BUN/Creatinine Ratio 33.8 H, Glucose 141 H, Calcium 8.0 L 06/22/19 09:45: Random Vancomycin 22.4 H Current Medications Acetaminophen (Tylenol Liquid) 650 mg GT Q4H PRN PRN PRN Reason: TEMP > 100.5 F Last Admin: 06/18/19 08:52 Dose: 650 mg Documented by: Albuterol Sulfate (Ventolin Aerosols) 2.5 mg INHALATION Q4H PRN PRN PRN Reason: WHEEZING Last Admin: 06/16/19 19:01 Dose: 2.5 mg Documented by: Amiodarone HCl (Cordarone) 400 mg GT DAILY [facility] Last Admin: 06/22/19 08:57 Dose: 400 mg Documented by: Chlorhexidine Gluconate () 15 ml PO BID [facility] Last Admin: 06/22/19 08:57 Dose: 15 ml Documented by: Chlorhexidine Gluconate () 1 each TOPICAL DAILY [facility] Last Admin: 06/22/19 08:57 Dose: 1 each Documented by: Enoxaparin Sodium (Lovenox) 30 mg SC DAILY [facility] Last Admin: 06/22/19 08:57 Dose: 30 mg Documented by: Famotidine (Pepcid) 20 mg GT DAILY [facility] Last Admin: 06/22/19 08:56 Dose: 20 mg Documented by: Vancomycin IV Pharmacy to Dose (1 ea/ Sodium Chloride) 500 mls @ 250 mls/hr IV PRN PRN; Protocol PRN Reason: Rx to Dose Enteral Nutritional Formula (Vital Af 1.2 Juma Liquid) 1,000 mls @ 55 mls/hr GT .[id number] [facility] Last Admin: 06/22/19 02:22 Dose: 55 mls/hr Documented by: Ceftriaxone Sodium 2 gm/ (Sodium Chloride) 50 mls @ 100 mls/hr IV Q24 [facility] Last Infusion: 06/22/19 10:24 Dose: Infused Documented by: Metronidazole (Flagyl) 500 mg in 100 mls @ 100 mls/hr IV Q8 [facility] Last Infusion: 06/22/19 06:10 Dose: Infused Documented by: Sodium Chloride () 250 mls @ 15 mls/hr IV .[id number] PRN PRN Reason: Saline Flush Last Infusion: 06/21/19 22:06 Dose: 15 mls/hr Documented by: Sodium Chloride () 250 mls @ 15 mls/hr IV .[id number] PRN PRN Reason: Additional IVPB Infusion Nutritional Formula (Thor - Swisher Flavor) 1 packet GT BID [facility] Last Admin: 06/22/19 08:57 Dose: 1 packet Documented by: Senna/Docusate Sodium (Senokot-S, Laureen-Colace) 2 tablet GT DAILY PRN PRN PRN Reason: CONSTIPATION Sodium Chloride () 10 - 40 ml IV UD PRN PRN Reason: SALINE FLUSH Last Admin: 06/20/19 09:14 Dose: 10 ml Documented by: Zinc Sulfate (Zinc Sulfate) 220 mg GT TID [facility] Last Admin: 06/22/19 05:23 Dose: 220 mg Documented by: STROKE Vital Signs/Narrative: Vital Signs Temp Pulse Resp BP Pulse Ox 06/22/19 12:00 99.4 F H 84 28 H 113/49 L 99 06/22/19 11:00 99.5 F H 85 28 H 101/57 L 98 06/22/19 10:00 99.4 F H 85 26 H 103/46 L 98 Medical Necessity - Tobacco Use Smoking Status: Smoker, status unknown Tobacco Use: Non-smoker Assessment/Plan All Active Problems Perirectal abscess (Acute) Severe sepsis (Acute) Acute respiratory failure with hypoxia and hypercapnia (Acute) Bilateral pneumonia (Acute) Infection due to [facility] coronavirus (Acute) 1. Acute hypoxic peripheral failure secondary to ARDS from COVID?19/severe sepsis/infected polymicrobial sacral decubitus ulcers with severe hidradenitis of the abdominal wall and perineal area/probable perirectal abscess/metabolic versus toxic encephalopathy -Continue with broad-spectrum antibiotics for her multiple polymicrobial infections, she has a urine culture with Tracey albicans, MRSA, enterococcus -Abdominal wound with Proteus, MRSA, corynebacterium -Decubitus ulcer with Proteus, MRSA, corynebacterium -Respiratory culture with MRSA -Continue with Vanco and Rocephin -still ventilated with an FiO2 of 35% and a PEEP of 8 -C. difficile test was negative 2. ABIGAIL -Started on dialysis, BUN has improved from 133-69 with dialysis -She is 6 L positive -Likely ATN at this point 3. DM 2 -Does not take any medications at home, will continue to monitor -Continue sliding scale insulin 4. HTN/chronic A. fib -We will continue with her amiodarone at 400, not currently on any anticoagulation -Does not take any blood pressure medications at the care home 5. Bipolar disorder/schizophrenia/PTSD -We will hold her benzodiazepine and loxapine This is a late entry for 06/21/2019 DVT: Lovenox Inpatient E&M: 49915 Subs Hosp L2
--- NOTE | 2019-06-22 13:49 | PN_ITS ---
Patient Problems: Active and Suspected Problems Severe sepsis (Acute) Acute respiratory failure with hypoxia and hypercapnia (Acute) Bilateral pneumonia (Acute) Infection due to [place] coronavirus (Acute) Subjective: Intubated not sedated did well with spontaneous breathing trial yesterday. No issues overnight Vitals/I&O's: Vital Signs Temp Pulse Resp BP Pulse Ox 99.4 F H 106 H 28 H 113/49 L 99 06/22/19 12:00 06/22/19 12:00 06/22/19 12:00 06/22/19 12:00 06/22/19 12:00 Oxygen Flow Rate (L/min) 35 Oxygen Delivery Method Mechanical Ventilator Weight: 227 lb 11.8 oz Body Mass Index (BMI) 39.4 Intake and Output for Last 24 Hours 06/20/19 06/21/19 06/22/19 23:59 23:59 23:59 Intake Total 2970 / 3120 3121.33 / 3591.33 598.33 / 598.33 Output Total 2200 / 2200 60 / 110 175 / 175 Balance 770 / 920 3061.33 / 3481.33 423.33 / 423.33 General: - - Intubated she does open her eyes a little and is somewhat interactive though her mentation still seems depressed HEENT: Atraumatic, PERRLA, Normocephalic Oral: Moist Mucosa Neck: Supple, No JVD Lungs: Clear to auscultation, No wheeze, No rales, Diminished, Rhonchi Cardiovascular: Regular rate, Regular Rhythm, Normal S1, Normal S2, No murmurs Abdomen: Soft, Non Tender, Non-Distended, No Hepato-splenomegaly Extremities: No edema, Capillary Refill Less than 3 Seconds Skin: Ulcer/ Wound - Decubitus ulcer of her buttock Neurological: - - Intubated and nonresponsive Psych/Mental Status: - - Intubated and nonresponsive Microbiology Past 72 Hours 06/20/19 07:00 Sputum, Induced/Lukens Gram Stain - Final 06/20/19 07:00 Sputum, Induced/Lukens Respiratory Culture - Final Meth. resistant Staph. aureus Laboratory Results 06/22/19 03:55: WBC 13.1 H, RBC 3.54 L, Hgb 9.7 L, Hct 30.3 L, MCV 85.6, MCH 27.4, MCHC 32.0, RDW Std Deviation 50.4 H, RDW Coeff of Bassam 16.9 H, Plt Count 190, MPV 12.0, Immature Gran % (Auto) 4.600 H, Neut % (Auto) 75.8 H, Lymph % ( Auto) 13.9 L, [place] % (Auto) 4.6, Eos % (Auto) 0.6, Baso % (Auto) 0.5, Absolute Neuts (auto) 9.9 H, Absolute Lymphs (auto) 1.83, Nucleated RBC % 0.6 06/22/19 03:55: Sodium 135 L, Potassium 4.2, Chloride 101, Carbon Dioxide 26.0, Anion Gap 8, BUN 52 H, Creatinine 1.54 H, Estim Creat Clear Calc 33.55, Est GFR (MDRD) Af Amer 44 L, Est GFR (MDRD) Non-Af 37 L, BUN/Creatinine Ratio 33.8 H, Glucose 141 H, Calcium 8.0 L 06/22/19 09:45: Random Vancomycin 22.4 H Current Medications Acetaminophen (Tylenol Liquid) 650 mg GT Q4H PRN PRN PRN Reason: TEMP > 100.5 F Last Admin: 06/18/19 08:52 Dose: 650 mg Documented by: Albuterol Sulfate (Ventolin Aerosols) 2.5 mg INHALATION Q4H PRN PRN PRN Reason: WHEEZING Last Admin: 06/16/19 19:01 Dose: 2.5 mg Documented by: Amiodarone HCl (Cordarone) 400 mg GT DAILY [facility] Last Admin: 06/22/19 08:57 Dose: 400 mg Documented by: Chlorhexidine Gluconate () 15 ml PO BID [facility] Last Admin: 06/22/19 08:57 Dose: 15 ml Documented by: Chlorhexidine Gluconate () 1 each TOPICAL DAILY [facility] Last Admin: 06/22/19 08:57 Dose: 1 each Documented by: Enoxaparin Sodium (Lovenox) 30 mg SC DAILY [facility] Last Admin: 06/22/19 08:57 Dose: 30 mg Documented by: Famotidine (Pepcid) 20 mg GT DAILY [facility] Last Admin: 06/22/19 08:56 Dose: 20 mg Documented by: Vancomycin IV Pharmacy to Dose (1 ea/ Sodium Chloride) 500 mls @ 250 mls/hr IV PRN PRN; Protocol PRN Reason: Rx to Dose Enteral Nutritional Formula (Vital Af 1.2 Juma Liquid) 1,000 mls @ 55 mls/hr GT .[id number] [facility] Last Admin: 06/22/19 02:22 Dose: 55 mls/hr Documented by: Ceftriaxone Sodium 2 gm/ (Sodium Chloride) 50 mls @ 100 mls/hr IV Q24 [facility] Last Infusion: 06/22/19 10:24 Dose: Infused Documented by: Metronidazole (Flagyl) 500 mg in 100 mls @ 100 mls/hr IV Q8 [facility] Last Admin: 06/22/19 13:42 Dose: 100 mls/hr Documented by: Sodium Chloride () 250 mls @ 15 mls/hr IV .[id number] PRN PRN Reason: Saline Flush Last Infusion: 06/21/19 22:06 Dose: 15 mls/hr Documented by: Sodium Chloride () 250 mls @ 15 mls/hr IV .[id number] PRN PRN Reason: Additional IVPB Infusion Nutritional Formula (Thor - [place] Flavor) 1 packet GT BID [facility] Last Admin: 06/22/19 08:57 Dose: 1 packet Documented by: Senna/Docusate Sodium (Senokot-S, Laureen-Colace) 2 tablet GT DAILY PRN PRN PRN Reason: CONSTIPATION Sodium Chloride () 10 - 40 ml IV UD PRN PRN Reason: SALINE FLUSH Last Admin: 06/20/19 09:14 Dose: 10 ml Documented by: Zinc Sulfate (Zinc Sulfate) 220 mg GT TID [facility] Last Admin: 06/22/19 13:41 Dose: 220 mg Documented by: STROKE Vital Signs/Narrative: Vital Signs Temp Pulse Resp BP Pulse Ox 06/22/19 12:00 99.4 F H 84 28 H 113/49 L 99 06/22/19 11:00 99.5 F H 85 28 H 101/57 L 98 06/22/19 10:00 99.4 F H 85 26 H 103/46 L 98 Medical Necessity - Tobacco Use Smoking Status: Smoker, status unknown Tobacco Use: Non-smoker Assessment/Plan All Active Problems Perirectal abscess (Acute) Severe sepsis (Acute) Acute respiratory failure with hypoxia and hypercapnia (Acute) Bilateral pneumonia (Acute) Infection due to [place] coronavirus (Acute) 1. Acute hypoxic peripheral failure secondary to ARDS from COVID?19/severe sepsis/infected polymicrobial sacral decubitus ulcers with severe hidradenitis of the abdominal wall and perineal area/probable perirectal abscess/metabolic versus toxic encephalopathy -Continue with broad-spectrum antibiotics for her multiple polymicrobial infections, she has a urine culture with Tracey albicans, MRSA, enterococcus -Abdominal wound with Proteus, MRSA, corynebacterium -Decubitus ulcer with Proteus, MRSA, corynebacterium -Respiratory culture with MRSA -Continue with Vanco and Rocephin, and flagyl -Spontaneous vent with an FiO2 of 35% and a PEEP of 5 -C. difficile test was negative 2. ABIGAIL -Started on dialysis, BUN has improved from 133-52 with dialysis -She is 6 L positive -Likely ATN at this point 3. DM 2 -Does not take any medications at home, will continue to monitor -Continue sliding scale insulin 4. HTN/chronic A. fib -We will continue with her amiodarone at 400, not currently on any anticoagulation -Does not take any blood pressure medications at the alf 5. Bipolar disorder/schizophrenia/PTSD -We will hold her benzodiazepine and loxapine DVT: Lovenox Inpatient E&M: 27993 Subs Hosp L2
--- NOTE | 2019-06-22 17:02 | PN.RENAL_ITS ---
Patient Problems: Active and Suspected Problems Severe sepsis (Acute) Acute respiratory failure with hypoxia and hypercapnia (Acute) Bilateral pneumonia (Acute) Infection due to [facility] coronavirus (Acute) Subjective: intubated - Physical Exam Vitals/I&O's: Vital Signs Temp Pulse Resp BP Pulse Ox 98.8 F 83 33 H 119/51 L 96 06/22/19 16:00 06/22/19 16:00 06/22/19 16:00 06/22/19 16:00 06/22/19 16:00 Oxygen Flow Rate (L/min) 35 Oxygen Delivery Method Mechanical Ventilator Weight: 103.3 kg Body Mass Index (BMI) 39.4 Intake and Output for Last 24 Hours 06/20/19 06/21/19 06/22/19 23:59 23:59 23:59 Intake Total 2970 / 3120 3121.33 / 3591.33 1318.33 / 1318.33 Output Total 2200 / 2200 60 / 110 200 / 200 Balance 770 / 920 3061.33 / 3481.33 1118.33 / 1118.33 Microbiology Past 72 Hours 06/20/19 07:00 Sputum, Induced/Lukens Gram Stain - Final 06/20/19 07:00 Sputum, Induced/Lukens Respiratory Culture - Final Meth. resistant Staph. aureus Laboratory Results 06/22/19 03:55: WBC 13.1 H, RBC 3.54 L, Hgb 9.7 L, Hct 30.3 L, MCV 85.6, MCH 27.4, MCHC 32.0, RDW Std Deviation 50.4 H, RDW Coeff of Bassam 16.9 H, Plt Count 190, MPV 12.0, Immature Gran % (Auto) 4.600 H, Neut % (Auto) 75.8 H, Lymph % (Auto) 13.9 L, [place] % (Auto) 4.6, Eos % (Auto) 0.6, Baso % (Auto) 0.5, Absolute Neuts (auto) 9.9 H, Absolute Lymphs (auto) 1.83, Nucleated RBC % 0.6 06/22/19 03:55: Sodium 135 L, Potassium 4.2, Chloride 101, Carbon Dioxide 26.0, Anion Gap 8, BUN 52 H, Creatinine 1.54 H, Estim Creat Clear Calc 33.55, Est GFR (MDRD) Af Amer 44 L, Est GFR (MDRD) Non-Af 37 L, BUN/Creatinine Ratio 33.8 H, Glucose 141 H, Calcium 8.0 L 06/22/19 09:45: Random Vancomycin 22.4 H Current Medications Acetaminophen (Tylenol Liquid) 650 mg GT Q4H PRN PRN PRN Reason: TEMP > 100.5 F Last Admin: 06/18/19 08:52 Dose: 650 mg Documented by: Albuterol Sulfate (Ventolin Aerosols) 2.5 mg INHALATION Q4H PRN PRN PRN Reason: WHEEZING Last Admin: 06/16/19 19:01 Dose: 2.5 mg Documented by: Amiodarone HCl (Cordarone) 400 mg GT DAILY [facility] Last Admin: 06/22/19 08:57 Dose: 400 mg Documented by: Chlorhexidine Gluconate () 15 ml PO BID [facility] Last Admin: 06/22/19 08:57 Dose: 15 ml Documented by: Chlorhexidine Gluconate () 1 each TOPICAL DAILY [facility] Last Admin: 06/22/19 08:57 Dose: 1 each Documented by: Enoxaparin Sodium (Lovenox) 30 mg SC DAILY [facility] Last Admin: 06/22/19 08:57 Dose: 30 mg Documented by: Famotidine (Pepcid) 20 mg GT DAILY [facility] Last Admin: 06/22/19 08:56 Dose: 20 mg Documented by: Vancomycin IV Pharmacy to Dose (1 ea/ Sodium Chloride) 500 mls @ 250 mls/hr IV PRN PRN; Protocol PRN Reason: Rx to Dose Enteral Nutritional Formula (Vital Af 1.2 Juma Liquid) 1,000 mls @ 55 mls/hr GT .[id number] [facility] Last Admin: 06/22/19 02:22 Dose: 55 mls/hr Documented by: Ceftriaxone Sodium 2 gm/ (Sodium Chloride) 50 mls @ 100 mls/hr IV Q24 [facility] Last Infusion: 06/22/19 10:24 Dose: Infused Documented by: Metronidazole (Flagyl) 500 mg in 100 mls @ 100 mls/hr IV Q8 [facility] Last Infusion: 06/22/19 14:51 Dose: Infused Documented by: Sodium Chloride () 250 mls @ 15 mls/hr IV .[id number] PRN PRN Reason: Saline Flush Last Admin: 06/22/19 14:52 Dose: 15 mls/hr Documented by: Sodium Chloride () 250 mls @ 15 mls/hr IV .[id number] PRN PRN Reason: Additional IVPB Infusion Nutritional Formula (Thor - [place] Flavor) 1 packet GT BID [facility] Last Admin: 06/22/19 08:57 Dose: 1 packet Documented by: Senna/Docusate Sodium (Senokot-S, Laureen-Colace) 2 tablet GT DAILY PRN PRN PRN Reason: CONSTIPATION Sodium Chloride () 10 - 40 ml IV UD PRN PRN Reason: SALINE FLUSH Last Admin: 06/20/19 09:14 Dose: 10 ml Documented by: Zinc Sulfate (Zinc Sulfate) 220 mg GT TID [facility] Last Admin: 06/22/19 13:41 Dose: 220 mg Documented by: Medical Necessity - Tobacco Use Smoking Status: Smoker, status unknown Tobacco Use: Non-smoker Assessment/Plan All Active Problems Perirectal abscess (Acute) Severe sepsis (Acute) Acute respiratory failure with hypoxia and hypercapnia (Acute) Bilateral pneumonia (Acute) Infection due to [place] coronavirus (Acute) ABIGAIL likely ATN and AIN with COVID-19 and vanco toxicity hypernatremia resolved ARDS s/p intubation on vent COVID-19 HD yesterday on minimal FiO2 Due to the current efforts to prevent transmission of COVID?19 and also the need to preserve PPE for other caregivers a [id number] encounter with the patient was not performed. That being said, all relevant records and diagnostic tests were reviewed including laboratory test and imaging. Please reference any relevant documentation elsewhere. Care will be coordinated with the primary service.
[2019-06-23] VITALS (36 sets, daily range): BP systolic 97–147; BP diastolic 43–79; PULSE 73–90; RESP 14–38; TEMP 36.8–37.5; O2SAT 90–100
[2019-06-23 05:09] LABS: Absolute Lymphocyte Count 2.28 X10^3/uL (0.83-4.51); Absolute Neutrophil Count 7.5 X10^3/uL (2.0-7.7); Basophil# 0.04 X10^3/uL; Basophil% 0.4 % (0-1); Eosinophil# 0.13 X10^3/uL; Eosinophils% 1.2 % (0-5); Hematocrit 27.1 % (37-47); Hemoglobin 8.6 g/dL (12.0-15.0); Lymphocyte # 2.28 X10^3/ul (4.0); Lymphocyte % 20.7 % (19-41); Mean Corp Hgb Conc 31.7 g/dL (32-36); Mean Corpuscular Hgb 27.4 pg (27.0-32.0); Mean Corpuscular Volume 86.3 fL (81-99); Mean Platelet Vol. 12.2 fl (6.2-12.0); Monocyte% 5.4 % (0-10); NRBC Flagged by Analyzer 0.3 % (0-5); Neutrophil # 7.53 X10^3/uL (2.7-7.7); Neutrophil % 68.1 % (47-70); Platelet Count 180 K/mm3 (150-450); RBC Distribution Width CV 18.3 % (11.6-14.6); RBC Distribution Width SD 51.4 fl (35.1-43.9); Red Blood Count 3.14 M/mm3 (4.2-5.4)
[2019-06-23 05:22] LABS: Anion Gap 8 (5-15); BUN 94 mg/dL (7-18); BUN/Creat Ratio 41.8 RATIO (10-20); Calcium,Total 8.1 mg/dL (8.5-10.1); Chloride 103 mmol/L (98-107); Creatinine, Serum 2.25 mg/dL (0.55-1.02); EST Glomerular Filtration Rate 24 mL/min (>60); Est Glom Filt Rate - Afr Amer 29 mL/min (>60); Estimated Creatinine Clearance 22.96 ml/min; Glucose 126 mg/dL (74-106); Potassium 4.2 mmol/L (3.5-5.1); Sodium Level 137 mmol/L (136-145)
[2019-06-23] MEDS: metroNIDAZOLE 500 MG/100 ML BAG 100 MG IV ×3 (05:31→21:17)
[2019-06-23 05:43] LABS: Vancomycin, Random Level 19.5 ug/mL (0.0-15.0)
--- NOTE | 2019-06-23 06:01 | PN_ITS ---
Subjective: The patient was seen and examined at the bedside this morning. Events from the last 24 hours have been reviewed. The patient continues to have low-grade fevers but remains hemodynamically stable. The patient is stable from a respiratory perspective on assist control mode of mechanical ventilation with an FiO2 requirement of 35% and PEEP of 5. Per nursing report, the patient had significant oral and endotracheal secretions overnight. She was placed on a spontaneous breathing trial this morning, which was later terminated after the patient developed tachycardia and tachypnea. I have been unable to reach the patient's daughter, Rosaline Smith to discuss goals of care/CODE STATUS, prior to consideration for extubation. Objective: The patient's most recent lab work, culture data and imaging studies have all been personally reviewed. Blood cultures have shown no growth to date. Urine culture was positive for MRSA and Enterococcus faecalis. Abdominal wound culture was positive for Proteus mirabilis, MRSA and Corynebacterium. Buttock wound culture was positive for Proteus mirabilis, MRSA and Corynebacterium. Sputum culture was positive for MRSA. C. difficile testing was negative. General: - - Remains intubated and mechanically ventilated. Remains on spontaneous mode mechanical ventilation. HEENT: Atraumatic, Normocephalic Oral: Moist Mucosa, - - Stable endotracheal and OG tubes Neck: Supple, No Nodes, Trachea Midline, - - Temporary hemodialysis line remains in place Lungs: Diminished, Tachypneic, - - Scant rhonchi. Cardiovascular: Normal S1, Normal S2, Irregular Rate Abdomen: Bowel Sounds Present, Soft, Non Tender, Obese Extremities: No clubbing, No cyanosis, Edema Skin: - - No significant change from previous Musculoskeletal: No Muscle Wasting Lymphatic: No Cervical, Supraclavicular, or Inguinal Adenopathy Neurological: - - Opens eyes and appears to track. The patient appears very weak but did attempt to squeeze my hand. Vital Signs Temp Pulse Resp BP Pulse Ox 99.3 F H 89 26 H 119/79 96 06/23/19 04:00 06/23/19 05:00 06/23/19 05:00 06/23/19 05:00 06/23/19 05:00 Oxygen Flow Rate (L/min) 35 Oxygen Delivery Method Mechanical Ventilator Weight: 231 lb 11.293 oz Body Mass Index (BMI) 39.4 Intake and Output for Last 24 Hours 06/21/19 06/22/19 06/23/19 23:59 23:59 23:59 Intake Total 3121.33 / 3591.33 1506.58 / 2186.58 795.5 / 795.5 Output Total 60 / 110 200 / 260 60 / 60 Balance 3061.33 / 3481.33 1306.58 / 1926.58 735.5 / 735.5 Labs (Last 48 Hours) 06/21/19 06/22/19 06/22/19 10:30 03:55 03:55 WBC 13.1 H RBC 3.54 L Hgb 9.7 L Hct 30.3 L MCV 85.6 MCH 27.4 MCHC 32.0 RDW Std Deviation 50.4 H RDW Coeff of Bassam 16.9 H Plt Count 190 MPV 12.0 Immature Gran % (Auto) 4.600 H Neut % (Auto) 75.8 H Lymph % (Auto) 13.9 L [place] % (Auto) 4.6 Eos % (Auto) 0.6 Baso % (Auto) 0.5 Absolute Neuts (auto) 9.9 H Absolute Lymphs (auto) 1.83 Nucleated RBC % 0.6 Sodium 135 L Potassium 4.2 Chloride 101 Carbon Dioxide 26.0 Anion Gap 8 BUN 52 H Creatinine 1.54 H Estim Creat Clear Calc 33.55 Est GFR (MDRD) Af Amer 44 L Est GFR (MDRD) Non-Af 37 L BUN/Creatinine Ratio 33.8 H Glucose 141 H Calcium 8.0 L Random Vancomycin 19.3 H 06/22/19 06/23/19 06/23/19 09:45 04:10 04:10 WBC 11.0 RBC 3.14 L Hgb 8.6 L Hct 27.1 L MCV 86.3 MCH 27.4 MCHC 31.7 L RDW Std Deviation 51.4 H RDW Coeff of Bassam 18.3 H Plt Count 180 MPV 12.2 H Immature Gran % (Auto) 4.200 H Neut % (Auto) 68.1 Lymph % (Auto) 20.7 [place] % (Auto) 5.4 Eos % (Auto) 1.2 Baso % (Auto) 0.4 Absolute Neuts (auto) 7.5 Absolute Lymphs (auto) 2.28 Nucleated RBC % 0.3 Sodium 137 Potassium 4.2 Chloride 103 Carbon Dioxide 26.0 Anion Gap 8 BUN 94 H Creatinine 2.25 H Estim Creat Clear Calc 22.96 Est GFR (MDRD) Af Amer 29 L Est GFR (MDRD) Non-Af 24 L BUN/Creatinine Ratio 41.8 H Glucose 126 H Calcium 8.1 L Random Vancomycin 22.4 H 06/23/19 04:10 WBC RBC Hgb Hct MCV MCH MCHC RDW Std Deviation RDW Coeff of Bassam Plt Count MPV Immature Gran % (Auto) Neut % (Auto) Lymph % (Auto) [place] % (Auto) Eos % (Auto) Baso % (Auto) Absolute Neuts (auto) Absolute Lymphs (auto) Nucleated RBC % Sodium Potassium Chloride Carbon Dioxide Anion Gap BUN Creatinine Estim Creat Clear Calc Est GFR (MDRD) Af Amer Est GFR (MDRD) Non-Af BUN/Creatinine Ratio Glucose Calcium Random Vancomycin 19.5 H Microbiology 06/20/19 07:00 Sputum, Induced/Lukens Gram Stain - Final 06/20/19 07:00 Sputum, Induced/Lukens Respiratory Culture - Final Meth. resistant Staph. aureus Clinical Impression(s) from Imaging Studies Chest X-Ray 06/13/19 14:30 IMPRESSION: Infiltrates in the right lung as well as in the left mid lung. Follow-up is recommended. The tip of the endotracheal tube is at 4 cm proximal to the garret. Electronically Signed: Steve Fierro, at 14:55 EDT , Service support , Hip/Pelvis X-Ray 06/13/19 14:30 IMPRESSION: Degenerative changes of both hips as well as the sacroiliac joints. Electronically Signed: Steve Fierro, at 14:55 EDT , Service support , KUB X-Ray 06/13/19 14:30 IMPRESSION: The tip of the orogastric tube is seen in the distal stomach/pyloric region. Electronically Signed: Steve Fierro, at 14:53 EDT , Service support , Renal Ultrasound 06/17/19 12:36 IMPRESSION: 1.3 cm x 1.5 cm x 1.3 cm left renal cyst. Moderate degree of the left hydronephrosis. Distended urinary bladder. Electronically Signed: Steve Sri, at 15:35 EDT , Service support , Chest X-Ray 06/18/19 16:30 IMPRESSION: A dialysis catheter seen through the right IJ terminating in the lower SVC. No pneumothorax. No other change. Electronically Signed: Shiv Carr MD at 17:18 EDT , Service support , Medical Necessity - Tobacco Use Smoking Status: Smoker, status unknown Tobacco Use: Non-smoker Assessment/Plan All Active Problems Perirectal abscess (Acute) Severe sepsis (Acute) Acute respiratory failure with hypoxia and hypercapnia (Acute) Bilateral pneumonia (Acute) Infection due to [place] coronavirus (Acute) RECOMMENDATIONS: 1. Continue current supportive measures with invasive mechanical ventilatory support. Wean FiO2 to maintain oxygen saturations at or above 90%. 2. Continue patient on spontaneous mode of mechanical ventilation throughout the day. Place back on assist control tonight. 3. Continue tube feeds. 4. Continue hemodialysis per nephrology recommendations. 5. Continue to withhold all sedating medications. 6. Continue appropriate ICU prophylaxis. 7. We will discuss goals of care with patient's family, prior to considering extubation. IMPRESSIONS: 1. Acute hypoxemic respiratory failure 2/2 ARDS due to COVID-19 infection combined with MRSA Pneumonia Continue current supportive measures with invasive mechanical ventilatory support, employing a lung protective strategy, along with antimicrobials per infectious diseases recommendations. Azithromycin and Plaquenil were avoided due to prolonged QTC at baseline. Continue to wean FiO2 and PEEP to maintain oxygen saturations at or above 90%. Although the patient's respiratory status has improved, her mental state is currently limiting her ability to attempt to wean her from invasive mechanical ventilatory support. 2. Severe sepsis secondary to COVID-19 Infection and MRSA Pneumonia Continue current supportive measures as noted above. The patient remains hemodynamically stable. 3. Acute kidney injury The patient developed worsening renal insufficiency over the course of her hospitalization. Concern for ATN in the setting of COVID infection. The patient has become progressively uremic, which has left her an encephalopathic state. Nephrology is currently following to assist with hemodialysis needs. 4. Encephalopathy Concern for toxic metabolic encephalopathy, with underlying worsening uremia contributing. Nephrology is currently following to assist with hemodialysis needs. Continue to withhold all sedating medications. 5. Diabetes mellitus/hypertension/schizoaffective disorder/morbid obesity Complicates care, management, recovery and prognosis. Continue sliding scale insulin coverage. TIME: 34 minutes of critical care time, independent of procedures, was spent addressing the patient's acute hypoxemic respiratory failure, ARDS secondary to coronavirus infection and MRSA pneumonia, severe sepsis, acute kidney injury, encephalopathy, review of all data and collaboration with the care team. [phone]) [phone] [id number] Critical care first hour
[2019-06-23] MEDS: CHLORHEXIDINE GLUC 2% CLOTH 1 EACH TOWELETTE TOPICAL (08:18)
[2019-06-23] MEDS: Amiodarone 200 MG Tablet 400 MG GT (08:18)
[2019-06-23] MEDS: Chlorhexidine 15 ML PO ×2 (08:18→21:01)
[2019-06-23] MEDS: Famotidine 20 MG Tablet GT (08:19)
[2019-06-23] MEDS: Enoxaparin 30 MG/0.3 ML Syringe SC (08:19)
--- NOTE | 2019-06-23 09:46 | PCM.PN.HOSP ---
Patient Problems: Active and Suspected Problems Severe sepsis (Acute) Acute respiratory failure with hypoxia and hypercapnia (Acute) Bilateral pneumonia (Acute) Infection due to [place] coronavirus (Acute) Subjective: Remains intubated on spontaneous breathing trial. Attempts to get a hold of the daughter have been unsuccessful. She does appear to be tracking today Vitals/I&O's: Vital Signs Temp Pulse Resp BP Pulse Ox 98.7 F 83 38 H 121/60 H 97 06/23/19 08:00 06/23/19 09:00 06/23/19 09:00 06/23/19 09:00 06/23/19 09:00 Oxygen Flow Rate (L/min) 35 Oxygen Delivery Method Mechanical Ventilator Weight: 231 lb 11.293 oz Body Mass Index (BMI) 39.4 Intake and Output for Last 24 Hours 06/21/19 06/22/19 06/23/19 23:59 23:59 23:59 Intake Total 3121.33 / 3591.33 1506.58 / 2186.58 1550.5 / 1550.5 Output Total 60 / 110 200 / 260 105 / 105 Balance 3061.33 / 3481.33 1306.58 / 1926.58 1445.5 / 1445.5 General: - - Intubated she does open her eyes a little and is somewhat interactive though her mentation still seems depressed, tracking HEENT: Atraumatic, PERRLA, Normocephalic Oral: Moist Mucosa Neck: Supple, No JVD Lungs: No wheeze, No rales, Diminished, Rhonchi Cardiovascular: Regular rate, Regular Rhythm, Normal S1, Normal S2, No murmurs Abdomen: Soft, Non Tender, Non-Distended, No Hepato-splenomegaly Extremities: No edema, Capillary Refill Less than 3 Seconds Skin: Ulcer/ Wound - Decubitus ulcer of her buttock Neurological: - - Intubated opens her eyes and tracks Psych/Mental Status: - - Intubated Microbiology Past 72 Hours 06/20/19 07:00 Sputum, Induced/Lukens Gram Stain - Final 06/20/19 07:00 Sputum, Induced/Lukens Respiratory Culture - Final Meth. resistant Staph. aureus Laboratory Results 06/22/19 09:45: Random Vancomycin 22.4 H 06/23/19 04:10: WBC 11.0, RBC 3.14 L, Hgb 8.6 L, Hct 27.1 L, MCV 86.3, MCH 27.4, MCHC 31.7 L, RDW Std Deviation 51.4 H, RDW Coeff of Bassam 18.3 H, Plt Count 180, MPV 12.2 H, Immature Gran % (Auto) 4.200 H, Neut % (Auto) 68.1, Lymph % (Auto) 20.7, [place] % (Auto) 5.4, Eos % (Auto) 1.2, Baso % (Auto) 0.4, Absolute Neuts (auto) 7.5, Absolute Lymphs (auto) 2.28, Nucleated RBC % 0.3 06/23/19 04:10: Sodium 137, Potassium 4.2, Chloride 103, Carbon Dioxide 26.0, Anion Gap 8, BUN 94 H, Creatinine 2.25 H, Estim Creat Clear Calc 22.96, Est GFR (MDRD) Af Amer 29 L, Est GFR (MDRD) Non-Af 24 L, BUN/Creatinine Ratio 41.8 H, Glucose 126 H, Calcium 8.1 L 06/23/19 04:10: Random Vancomycin 19.5 H Current Medications Acetaminophen (Tylenol Liquid) 650 mg GT Q4H PRN PRN PRN Reason: TEMP > 100.5 F Last Admin: 06/18/19 08:52 Dose: 650 mg Documented by: Albuterol Sulfate (Ventolin Aerosols) 2.5 mg INHALATION Q4H PRN PRN PRN Reason: WHEEZING Last Admin: 06/16/19 19:01 Dose: 2.5 mg Documented by: Amiodarone HCl (Cordarone) 400 mg GT DAILY [facility] Last Admin: 06/23/19 08:18 Dose: 400 mg Documented by: Chlorhexidine Gluconate () 15 ml PO BID [facility] Last Admin: 06/23/19 08:18 Dose: 15 ml Documented by: Chlorhexidine Gluconate () 1 each TOPICAL DAILY [facility] Last Admin: 06/23/19 08:18 Dose: 1 each Documented by: Enoxaparin Sodium (Lovenox) 30 mg SC DAILY [facility] Last Admin: 06/23/19 08:19 Dose: 30 mg Documented by: Famotidine (Pepcid) 20 mg GT DAILY [facility] Last Admin: 06/23/19 08:19 Dose: 20 mg Documented by: Vancomycin IV Pharmacy to Dose (1 ea/ Sodium Chloride) 500 mls @ 250 mls/hr IV PRN PRN; Protocol PRN Reason: Rx to Dose Enteral Nutritional Formula (Vital Af 1.2 Juma Liquid) 1,000 mls @ 55 mls/hr GT .[id number] [facility] Last Admin: 06/22/19 20:52 Dose: 55 mls/hr Documented by: Ceftriaxone Sodium 2 gm/ (Sodium Chloride) 50 mls @ 100 mls/hr IV Q24 [facility] Last Admin: 06/23/19 09:05 Dose: 100 mls/hr Documented by: Metronidazole (Flagyl) 500 mg in 100 mls @ 100 mls/hr IV Q8 [facility] Last Infusion: 06/23/19 07:27 Dose: Infused Documented by: Sodium Chloride () 250 mls @ 15 mls/hr IV .[id number] PRN PRN Reason: Saline Flush Last Infusion: 06/23/19 06:35 Dose: 15 mls/hr Documented by: Sodium Chloride () 250 mls @ 15 mls/hr IV .[id number] PRN PRN Reason: Additional IVPB Infusion Nutritional Formula (Thor - [place] Flavor) 1 packet GT BID [facility] Last Admin: 06/23/19 08:19 Dose: 1 packet Documented by: Senna/Docusate Sodium (Senokot-S, Laureen-Colace) 2 tablet GT DAILY PRN PRN PRN Reason: CONSTIPATION Sodium Chloride () 10 - 40 ml IV UD PRN PRN Reason: SALINE FLUSH Last Admin: 06/20/19 09:14 Dose: 10 ml Documented by: Zinc Sulfate (Zinc Sulfate) 220 mg GT TID [facility] Last Admin: 06/23/19 05:32 Dose: 220 mg Documented by: STROKE Vital Signs/Narrative: Vital Signs Temp Pulse Resp BP Pulse Ox 06/23/19 09:00 83 38 H 121/60 H 97 06/23/19 08:00 98.7 F 83 31 H 120/67 97 06/23/19 07:36 84 06/23/19 07:00 98.9 F 84 26 H 120/64 94 06/23/19 06:00 98.9 F 85 25 H 109/65 96 Medical Necessity - Tobacco Use Smoking Status: Smoker, status unknown Tobacco Use: Non-smoker Assessment/Plan All Active Problems Perirectal abscess (Acute) Severe sepsis (Acute) Acute respiratory failure with hypoxia and hypercapnia (Acute) Bilateral pneumonia (Acute) Infection due to [facility] coronavirus (Acute) 1. Acute hypoxic peripheral failure secondary to ARDS from COVID?19/severe sepsis/infected polymicrobial sacral decubitus ulcers with severe hidradenitis of the abdominal wall and perineal area/probable perirectal abscess/metabolic versus toxic encephalopathy -Continue with broad-spectrum antibiotics for her multiple polymicrobial infections, she has a urine culture with Tracey albicans, MRSA, enterococcus -Abdominal wound with Proteus, MRSA, corynebacterium -Decubitus ulcer with Proteus, MRSA, corynebacterium -Respiratory culture with MRSA -Continue with Vanco and Rocephin, and flagyl -Spontaneous vent with an FiO2 of 35% and a PEEP of 5 -C. difficile test was negative 2. ABIGAIL -Started on dialysis, BUN has improved with dialysis -Creatinine today has risen as has BUN -Likely ATN at this point 3. DM 2 -Does not take any medications at home, will continue to monitor -Blood sugars are in the 120s 4. HTN/chronic A. fib -We will continue with her amiodarone at 400, not currently on any anticoagulation -Does not take any blood pressure medications at the [facility] 5. Bipolar disorder/schizophrenia/PTSD -We will hold her benzodiazepine and loxapine DVT: Lovenox Inpatient E&M: [id number] [facility] Hosp L2
[2019-06-24] VITALS (37 sets, daily range): BP systolic 97–164; BP diastolic 44–69; PULSE 26–97; RESP 14–32; TEMP 36.6–37.2; O2SAT 91–100
[2019-06-24 04:59] LABS: Absolute Lymphocyte Count 2.17 X10^3/uL (0.83-4.51); Basophil# 0.03 X10^3/uL; Basophil% 0.3 % (0-1); Eosinophil# 0.15 X10^3/uL; Eosinophils% 1.4 % (0-5); Hematocrit 26.1 % (37-47); Hemoglobin 8.3 g/dL (12.0-15.0); Lymphocyte # 2.17 X10^3/ul (4.0); Lymphocyte % 20.6 % (19-41); Mean Corp Hgb Conc 31.8 g/dL (32-36); Mean Corpuscular Hgb 27.3 pg (27.0-32.0); Mean Corpuscular Volume 85.9 fL (81-99); Mean Platelet Vol. 11.7 fl (6.2-12.0); Monocyte# 0.68 X10^3/uL; Monocyte% 6.5 % (0-10); NRBC Flagged by Analyzer 0 % (0-5); Neutrophil # 6.99 X10^3/uL (2.7-7.7); Neutrophil % 66.5 % (47-70); Platelet Count 191 K/mm3 (150-450); RBC Distribution Width CV 19.3 % (11.6-14.6); RBC Distribution Width SD 50.1 fl (35.1-43.9); Red Blood Count 3.04 M/mm3 (4.2-5.4); White Blood Count 10.5 K/mm3 (4.4-11.0)
[2019-06-24] MEDS: metroNIDAZOLE 500 MG/100 ML BAG 100 MG IV ×3 (05:12→21:30)
[2019-06-24 05:16] LABS: Anion Gap 11 (5-15); BUN 125 mg/dL (7-18); BUN/Creat Ratio 45.1 RATIO (10-20); Calcium,Total 8.3 mg/dL (8.5-10.1); Chloride 101 mmol/L (98-107); Creatinine, Serum 2.77 mg/dL (0.55-1.02); EST Glomerular Filtration Rate 19 mL/min (>60); Est Glom Filt Rate - Afr Amer 22 mL/min (>60); Estimated Creatinine Clearance 18.65 ml/min; Glucose 124 mg/dL (74-106); Potassium 4.5 mmol/L (3.5-5.1); Sodium Level 136 mmol/L (136-145)
[2019-06-24 07:01] LABS: Vancomycin, Random Level 17.8 ug/mL (0.0-15.0)
--- NOTE | 2019-06-24 08:02 | PCM.PN.INT ---
Subjective: Patient did okay overnight. Patient did tolerate pressure support ventilation for an extended period of time yesterday and was able to complete a spontaneous breathing trial this morning. Unfortunately, patient continues to have significant oral and endotracheal secretions noted. No fevers have been noted. Patient has not had any hypotension. Patient continues to tolerate tube feeds. General: Alert, Disoriented, - - Fair vent synchrony. Morbidly obese. HEENT: Atraumatic, PERRLA, EOMI, Normocephalic, - - No scleral icterus or injection noted Oral: Moist Mucosa, No Gingival or Mucosal Lesions/ Ulcerations Neck: Supple, No JVD, No Nodes, Trachea Midline Lungs: No wheeze, No rales, Diminished, Rhonchi - Bilaterally. Some improvement with suctioning., - - Able to suction moderate thin secretions Cardiovascular: Regular rate, Regular Rhythm, Normal S1, Normal S2, No murmurs, No rub noted, No Gallop Abdomen: Bowel Sounds Present, Soft, Non Tender, Non-Distended, Obese Extremities: No clubbing, No cyanosis, Edema Skin: - - No significant change compared to previous Musculoskeletal: No Tenderness to Palpation of Joints or Extremities Lymphatic: No Cervical, Supraclavicular, or Inguinal Adenopathy Neurological: Cranial nerves II-XII grossly intact, Neuro grossly intact - No significant change compared to previous. Does open eyes appropriately Psych/Mental Status: Restless Vital Signs Temp Pulse Resp BP Pulse Ox 37.1 C 78 22 H 124/63 H 98 06/24/19 06:00 06/24/19 07:30 06/24/19 07:30 06/24/19 06:00 06/24/19 07:30 Oxygen Flow Rate (L/min) 35 Oxygen Delivery Method Mechanical Ventilator Weight: 105.1 kg Body Mass Index (BMI) 39.4 Intake and Output for Last 24 Hours 06/22/19 06/23/19 06/24/19 23:59 23:59 23:59 Intake Total 1506.58 / 2186.58 3093.75 / 3623.75 1249.25 / 1249.25 Output Total 200 / 260 305 / 350 70 / 70 Balance 1306.58 / 1926.58 2788.75 / 3273.75 1179.25 / 1179.25 Labs (Last 48 Hours) 06/22/19 06/23/19 06/23/19 09:45 04:10 04:10 WBC 11.0 RBC 3.14 L Hgb 8.6 L Hct 27.1 L MCV 86.3 MCH 27.4 MCHC 31.7 L RDW Std Deviation 51.4 H RDW Coeff of Bassam 18.3 H Plt Count 180 MPV 12.2 H Immature Gran % (Auto) 4.200 H Neut % (Auto) 68.1 Lymph % (Auto) 20.7 [place] % (Auto) 5.4 Eos % (Auto) 1.2 Baso % (Auto) 0.4 Absolute Neuts (auto) 7.5 Absolute Lymphs (auto) 2.28 Nucleated RBC % 0.3 Sodium 137 Potassium 4.2 Chloride 103 Carbon Dioxide 26.0 Anion Gap 8 BUN 94 H Creatinine 2.25 H Estim Creat Clear Calc 22.96 Est GFR (MDRD) Af Amer 29 L Est GFR (MDRD) Non-Af 24 L BUN/Creatinine Ratio 41.8 H Glucose 126 H Calcium 8.1 L Random Vancomycin 22.4 H 06/23/19 06/24/19 06/24/19 04:10 04:30 04:30 WBC 10.5 RBC 3.04 L Hgb 8.3 L Hct 26.1 L MCV 85.9 MCH 27.3 MCHC 31.8 L RDW Std Deviation 50.1 H RDW Coeff of Bassam 19.3 H Plt Count 191 MPV 11.7 Immature Gran % (Auto) 4.700 H Neut % (Auto) 66.5 Lymph % (Auto) 20.6 [place] % (Auto) 6.5 Eos % (Auto) 1.4 Baso % (Auto) 0.3 Absolute Neuts (auto) 7.0 Absolute Lymphs (auto) 2.17 Nucleated RBC % 0 Sodium Potassium Chloride Carbon Dioxide Anion Gap BUN Creatinine Estim Creat Clear Calc Est GFR (MDRD) Af Amer Est GFR (MDRD) Non-Af BUN/Creatinine Ratio Glucose Calcium Random Vancomycin 19.5 H 17.8 H 06/24/19 04:30 WBC RBC Hgb Hct MCV MCH MCHC RDW Std Deviation RDW Coeff of Bassam Plt Count MPV Immature Gran % (Auto) Neut % (Auto) Lymph % (Auto) [place] % (Auto) Eos % (Auto) Baso % (Auto) Absolute Neuts (auto) Absolute Lymphs (auto) Nucleated RBC % Sodium 136 Potassium 4.5 Chloride 101 Carbon Dioxide 24.0 Anion Gap 11 BUN 125 H* Creatinine 2.77 H Estim Creat Clear Calc 18.65 Est GFR (MDRD) Af Amer 22 L Est GFR (MDRD) Non-Af 19 L BUN/Creatinine Ratio 45.1 H Glucose 124 H Calcium 8.3 L Random Vancomycin Microbiology 06/20/19 07:00 Sputum, Induced/Lukens Gram Stain - Final 06/20/19 07:00 Sputum, Induced/Lukens Respiratory Culture - Final Meth. resistant Staph. aureus Medical Necessity - Tobacco Use Smoking Status: Smoker, status unknown Tobacco Use: Non-smoker Assessment/Plan All Active Problems Perirectal abscess (Acute) Severe sepsis (Acute) Acute respiratory failure with hypoxia and hypercapnia (Acute) Bilateral pneumonia (Acute) Infection due to [place] coronavirus (Acute) RECOMMENDATIONS: 1. Continue current supportive measures with invasive mechanical ventilatory support. Wean FiO2 to maintain oxygen saturations at or above 90%. 2. Continue patient on spontaneous mode of mechanical ventilation throughout the day. Place back on assist control tonight. 3. Continue tube feeds. 4. Continue hemodialysis per nephrology recommendations. 5. Continue to withhold all sedating medications. 6. Continue appropriate ICU prophylaxis. 7. Add Robinul to help with secretions. IMPRESSIONS: 1. Acute hypoxemic respiratory failure 2/2 ARDS due to COVID-19 infection combined with MRSA Pneumonia Continue current supportive measures with invasive mechanical ventilatory support, employing a lung protective strategy, along with antimicrobials per infectious diseases recommendations. Azithromycin and Plaquenil were avoided due to prolonged QTC at baseline. Continue to wean FiO2 and PEEP to maintain oxygen saturations at or above 90%. Patient's mental status is marginal, but appears to be appropriate. Some concern secondary to significant oral and endotracheal secretions. This would be concerning for pulmonary toileting following extubation. Will add Robinul therapy to see if this will improve. 2. Severe sepsis secondary to COVID-19 Infection and MRSA Pneumonia Continue current supportive measures as noted above. The patient remains hemodynamically stable. Infectious diseases following. Defer antibiotic selection to them. 3. Acute kidney injury The patient developed worsening renal insufficiency over the course of her hospitalization. Concern for ATN in the setting of COVID infection. The patient has become progressively uremic, which has left her an encephalopathic state. Nephrology is currently following to assist with hemodialysis needs. Anticipate possible hemodialysis today given level of uremia. 4. Encephalopathy Concern for toxic metabolic encephalopathy, with underlying worsening uremia contributing. Nephrology is currently following to assist with hemodialysis needs. Continue to withhold all sedating medications. 5. Diabetes mellitus/hypertension/schizoaffective disorder/morbid obesity Complicates care, management, recovery and prognosis. Continue sliding scale insulin coverage. TIME: 32 minutes of critical care time, independent of procedures, was spent addressing the patient's acute hypoxemic respiratory failure, ARDS secondary to coronavirus infection and MRSA pneumonia, severe sepsis, acute kidney injury, encephalopathy, review of all data and collaboration with the care team. (6 AM to 7 AM) [phone]: [id number] Critical care first hour
[2019-06-24 08:38] LABS: Magnesium 1.9 mg/dL (1.6-2.6); Phosphorus 3.7 mg/dL (2.5-4.9)
[2019-06-24] MEDS: CHLORHEXIDINE GLUC 2% CLOTH 1 EACH TOWELETTE TOPICAL (08:45)
[2019-06-24] MEDS: Chlorhexidine 15 ML PO ×2 (08:45→21:12)
[2019-06-24] MEDS: Enoxaparin 30 MG/0.3 ML Syringe SC (08:45)
[2019-06-24] MEDS: Famotidine 20 MG Tablet GT (08:46)
[2019-06-24] MEDS: Amiodarone 200 MG Tablet 400 MG GT (08:46)
[2019-06-24] MEDS: Glycopyrrolate 1 MG TABLET GT ×2 (08:46→21:13)
--- NOTE | 2019-06-24 10:07 | CASEMGMT ---
Social Work Note Pt remains intubated, plan is to hopefully extubate pt tomorrow. SW to continue to follow. Yaneth Benitez [employer]ANT DISPATCHER, CLERICAL STOCK INSPECTOR
--- NOTE | 2019-06-24 12:23 | PCM.RX.CS ---
Consult Pharmacy has been consulted to manage selected antiobiotic: Vancomycin Type of Consult: Follow-up Suspected Infection: Sepsis, Pneumonia Prior Doses of Antibiotics Received/Current Regimen: Last received a dose of 500mg IV x1 on 06/21/19 at 18:05 Labs: Sodium 136 mmol/L (136-145) 06/24/19 04:30 Potassium 4.5 mmol/L (3.5-5.1) 06/24/19 04:30 Chloride 101 mmol/L (98-107) 06/24/19 04:30 Carbon Dioxide 24.0 mmol/L (21.0-32.0) 06/24/19 04:30 Anion Gap 11 (5-15) 06/24/19 04:30 BUN 125 mg/dL (7-18) H* 06/24/19 04:30 Creatinine 2.77 mg/dL (0.55-1.02) H 06/24/19 04:30 Est GFR (MDRD) Af Amer 22 mL/min (>60) L 06/24/19 04:30 Est GFR (MDRD) Non-Af 19 mL/min (>60) L 06/24/19 04:30 BUN/Creatinine Ratio 45.1 RATIO (10-20) H 06/24/19 04:30 Glucose 124 mg/dL (74-106) H 06/24/19 04:30 Vancomycin Trough 47.1 ug/mL (5.0-15.0) H 06/15/19 18:00 Random Vancomycin 17.8 ug/mL (0.0-15.0) H 06/24/19 04:30 Microbiology: Microbiology 06/20/19 07:00 Sputum, Induced/Lukens Gram Stain - Final 06/20/19 07:00 Sputum, Induced/Lukens Respiratory Culture - Final Meth. resistant Staph. aureus 06/13/19 13:15 Blood Culture (Wb) - Left Hand Blood Culture - Final No growth in 5 days. 06/13/19 13:15 Blood Culture (Wb) - Anticubital Right Blood Culture - Final No growth in 5 days. 06/18/19 09:00 Stool C. difficile DNA Amplification - Final 06/13/19 14:47 Urine Catheter - Siddiqi Urine Culture - Final Presumptive C albicans Meth. resistant Staph. aureus Enterococcus faecalis 06/13/19 18:00 Wound - Buttock Gram Stain - Final 06/13/19 18:00 Wound - Buttock Wound Culture - Final Proteus mirabilis Meth. resistant Staph. aureus Corynebacterium amycolatum 06/14/19 12:30 Sputum, Induced/Lukens Gram Stain - Final 06/14/19 12:30 Sputum, Induced/Lukens Respiratory Culture - Final Meth. resistant Staph. aureus 06/13/19 18:00 Wound - Abdominal Gram Stain - Final 06/13/19 18:00 Wound - Abdominal Wound Culture - Final Proteus mirabilis Meth. resistant Staph. aureus Corynebacterium amycolatum Weight used for dosin.1 kg Estimated Creatinine Clearance: 18.7ml/min Goal Trough: 15-20 mcg/mL Pharmacy Plan for Drug Dosing: The patient had a pre-dialysis random vancomycin level drawn today, which resulted in a level of 17.8. Per the dialysis dosing nomogram, will enter a vancomycin dose of 500mg IV x1 to be given after dialysis today. Will order another pre-dialysis random level to be drawn tomorrow morning again in case dialysis is ordered again. Pharmacy will then determine additional doses from there. Pharmacy Service will continue to monitor and adjust dosing as required. Follow-Up Labs: Trough Vancomycin - random Labs to be done on [date and time ordered]: 06/25/19 06:00
--- NOTE | 2019-06-24 12:51 | PCM.PN.REN ---
Patient Problems: Active and Suspected Problems Severe sepsis (Acute) Acute respiratory failure with hypoxia and hypercapnia (Acute) Bilateral pneumonia (Acute) Infection due to [place] coronavirus (Acute) Subjective: Patient is intubated review of systems is not obtainable - Physical Exam Vitals/I&O's: Vital Signs Temp Pulse Resp BP Pulse Ox 98.6 F 72 20 H 108/50 L 96 06/24/19 08:00 06/24/19 11:44 06/24/19 11:15 06/24/19 11:00 06/24/19 11:15 Oxygen Flow Rate (L/min) 35 Oxygen Delivery Method Mechanical Ventilator Weight: 105.1 kg Body Mass Index (BMI) 39.4 Intake and Output for Last 24 Hours 06/22/19 06/23/19 06/24/19 23:59 23:59 23:59 Intake Total 1506.58 / 2186.58 3093.75 / 3623.75 1599.25 / 1599.25 Output Total 200 / 260 305 / 350 70 / 70 Balance 1306.58 / 1926.58 2788.75 / 3273.75 1529.25 / 1529.25 Microbiology Past 72 Hours 06/20/19 07:00 Sputum, Induced/Lukens Gram Stain - Final 06/20/19 07:00 Sputum, Induced/Lukens Respiratory Culture - Final Meth. resistant Staph. aureus Laboratory Results 06/24/19 04:30: Random Vancomycin 17.8 H 06/24/19 04:30: WBC 10.5, RBC 3.04 L, Hgb 8.3 L, Hct 26.1 L, MCV 85.9, MCH 27.3, MCHC 31.8 L, RDW Std Deviation 50.1 H, RDW Coeff of Bassam 19.3 H, Plt Count 191, MPV 11.7, Immature Gran % (Auto) 4.700 H, Neut % (Auto) 66.5, Lymph % (Auto) 20.6, [place] % (Auto) 6.5, Eos % (Auto) 1.4, Baso % (Auto) 0.3, Absolute Neuts (auto) 7.0, Absolute Lymphs (auto) 2.17, Nucleated RBC % 0 06/24/19 04:30: Sodium 136, Potassium 4.5, Chloride 101, Carbon Dioxide 24.0, Anion Gap 11, BUN 125 H*, Creatinine 2.77 H, Estim Creat Clear Calc 18.65, Est GFR (MDRD) Af Amer 22 L, Est GFR (MDRD) Non-Af 19 L, BUN/Creatinine Ratio 45.1 H, Glucose 124 H, Calcium 8.3 L 06/24/19 04:30: Phosphorus 3.7, Magnesium 1.9 Current Medications Acetaminophen (Tylenol Liquid) 650 mg GT Q4H PRN PRN PRN Reason: TEMP > 100.5 F Last Admin: 06/18/19 08:52 Dose: 650 mg Documented by: Albuterol Sulfate (Ventolin Aerosols) 2.5 mg INHALATION Q4H PRN PRN PRN Reason: WHEEZING Last Admin: 06/16/19 19:01 Dose: 2.5 mg Documented by: Amiodarone HCl (Cordarone) 400 mg GT DAILY [facility] Last Admin: 06/24/19 08:46 Dose: 400 mg Documented by: Chlorhexidine Gluconate () 15 ml PO BID [facility] Last Admin: 06/24/19 08:45 Dose: 15 ml Documented by: Chlorhexidine Gluconate () 1 each TOPICAL DAILY [facility] Last Admin: 06/24/19 08:45 Dose: 1 each Documented by: Enoxaparin Sodium (Lovenox) 30 mg SC DAILY [facility] Last Admin: 06/24/19 08:45 Dose: 30 mg Documented by: Famotidine (Pepcid) 20 mg GT DAILY [facility] Last Admin: 06/24/19 08:46 Dose: 20 mg Documented by: Glycopyrrolate (Robinul) 1 mg GT BID [facility] Last Admin: 06/24/19 08:46 Dose: 1 mg Documented by: Vancomycin IV Pharmacy to Dose (1 ea/ Sodium Chloride) 500 mls @ 250 mls/hr IV PRN PRN; Protocol PRN Reason: Rx to Dose Enteral Nutritional Formula (Vital Af 1.2 Juma Liquid) 1,000 mls @ 55 mls/hr GT .[id number] [facility] Last Admin: 06/24/19 08:46 Dose: Not Given Documented by: Ceftriaxone Sodium 2 gm/ (Sodium Chloride) 50 mls @ 100 mls/hr IV Q24 [facility] Last Infusion: 06/24/19 09:31 Dose: Infused Documented by: Metronidazole (Flagyl) 500 mg in 100 mls @ 100 mls/hr IV Q8 [facility] Last Infusion: 06/24/19 06:20 Dose: Infused Documented by: Sodium Chloride () 250 mls @ 15 mls/hr IV .[id number] PRN PRN Reason: Saline Flush Last Infusion: 06/24/19 06:20 Dose: 15 mls/hr Documented by: Sodium Chloride () 250 mls @ 15 mls/hr IV .[id number] PRN PRN Reason: Additional IVPB Infusion Vancomycin HCl () 500 mg in 100 mls @ 100 mls/hr IV X1 ONE Stop: 06/24/19 15:59 Nutritional Formula (Thor - [place] Flavor) 1 packet GT BID [facility] Last Admin: 06/24/19 08:45 Dose: 1 packet Documented by: Senna/Docusate Sodium (Senokot-S, Laureen-Colace) 2 tablet GT DAILY PRN PRN PRN Reason: CONSTIPATION Sodium Chloride () 10 - 40 ml IV UD PRN PRN Reason: SALINE FLUSH Last Admin: 06/20/19 09:14 Dose: 10 ml Documented by: Zinc Sulfate (Zinc Sulfate) 220 mg GT TID [facility] Last Admin: 06/24/19 05:12 Dose: 220 mg Documented by: Medical Necessity - Tobacco Use Smoking Status: Smoker, status unknown Tobacco Use: Non-smoker Assessment/Plan All Active Problems Perirectal abscess (Acute) Severe sepsis (Acute) Acute respiratory failure with hypoxia and hypercapnia (Acute) Bilateral pneumonia (Acute) Infection due to [place] coronavirus (Acute) ABIGAIL likely ATN and AIN with COVID-19 and vanco toxicity hypernatremia resolved ARDS s/p intubation on vent COVID-19 tolerated HD well Keep MAP>65 avoid nephrotoxins for possible extubation tomorrow appreciate urology input for the moderate left-sided hydronephrosis d/w dr. Ruth and RN Due to the current efforts to prevent transmission of COVID?19 and also the need to preserve PPE for other caregivers a [id number] encounter with the patient was not performed. That being said, all relevant records and diagnostic tests were reviewed including laboratory test and imaging. Please reference any relevant documentation elsewhere. Care will be coordinated with the primary service.
--- NOTE | 2019-06-24 14:37 | PN.ID_ITS ---
Patient Problems: Active and Suspected Problems Severe sepsis (Acute) Acute respiratory failure with hypoxia and hypercapnia (Acute) Bilateral pneumonia (Acute) Infection due to [place] coronavirus (Acute) Subjective: On vent, awake, following some commands. No fever. - Physical Exam Vitals/I&O's: Vital Signs Temp Pulse Resp BP Pulse Ox 98.8 F 78 31 H 113/53 L 98 06/24/19 12:00 06/24/19 14:05 06/24/19 14:05 06/24/19 13:00 06/24/19 14:05 Oxygen Flow Rate (L/min) 35 Oxygen Delivery Method Mechanical Ventilator Weight: 105.1 kg Body Mass Index (BMI) 39.4 Intake and Output for Last 24 Hours 06/22/19 06/23/19 06/24/19 23:59 23:59 23:59 Intake Total 1506.58 / 2186.58 3093.75 / 3623.75 2153.00 / 2153.00 Output Total 200 / 260 305 / 350 270 / 270 Balance 1306.58 / 1926.58 2788.75 / 3273.75 1883.00 / 1883.00 General: No apparent distress Lungs: Clear to auscultation Cardiovascular: Regular rate, Regular Rhythm Abdomen: Soft, Non Tender, Non-Distended Skin: No rashes Microbiology Past 72 Hours 06/20/19 07:00 Sputum, Induced/Lukens Gram Stain - Final 06/20/19 07:00 Sputum, Induced/Lukens Respiratory Culture - Final Meth. resistant Staph. aureus Laboratory Results 06/24/19 04:30: Random Vancomycin 17.8 H 06/24/19 04:30: WBC 10.5, RBC 3.04 L, Hgb 8.3 L, Hct 26.1 L, MCV 85.9, MCH 27.3, MCHC 31.8 L, RDW Std Deviation 50.1 H, RDW Coeff of Bassam 19.3 H, Plt Count 191, MPV 11.7, Immature Gran % (Auto) 4.700 H, Neut % (Auto) 66.5, Lymph % (Auto) 20.6, [place] % (Auto) 6.5, Eos % (Auto) 1.4, Baso % (Auto) 0.3, Absolute Neuts (auto) 7.0, Absolute Lymphs (auto) 2.17, Nucleated RBC % 0 06/24/19 04:30: Sodium 136, Potassium 4.5, Chloride 101, Carbon Dioxide 24.0, Anion Gap 11, BUN 125 H*, Creatinine 2.77 H, Estim Creat Clear Calc 18.65, Est GFR (MDRD) Af Amer 22 L, Est GFR (MDRD) Non-Af 19 L, BUN/Creatinine Ratio 45.1 H , Glucose 124 H, Calcium 8.3 L 06/24/19 04:30: Phosphorus 3.7, Magnesium 1.9 Current Medications Acetaminophen (Tylenol Liquid) 650 mg GT Q4H PRN PRN PRN Reason: TEMP > 100.5 F Last Admin: 06/18/19 08:52 Dose: 650 mg Documented by: Albuterol Sulfate (Ventolin Aerosols) 2.5 mg INHALATION Q4H PRN PRN PRN Reason: WHEEZING Last Admin: 06/16/19 19:01 Dose: 2.5 mg Documented by: Amiodarone HCl (Cordarone) 400 mg GT DAILY [facility] Last Admin: 06/24/19 08:46 Dose: 400 mg Documented by: Chlorhexidine Gluconate () 15 ml PO BID [facility] Last Admin: 06/24/19 08:45 Dose: 15 ml Documented by: Chlorhexidine Gluconate () 1 each TOPICAL DAILY [facility] Last Admin: 06/24/19 08:45 Dose: 1 each Documented by: Enoxaparin Sodium (Lovenox) 30 mg SC DAILY [facility] Last Admin: 06/24/19 08:45 Dose: 30 mg Documented by: Famotidine (Pepcid) 20 mg GT DAILY [facility] Last Admin: 06/24/19 08:46 Dose: 20 mg Documented by: Glycopyrrolate (Robinul) 1 mg GT BID [facility] Last Admin: 06/24/19 08:46 Dose: 1 mg Documented by: Vancomycin IV Pharmacy to Dose (1 ea/ Sodium Chloride) 500 mls @ 250 mls/hr IV PRN PRN; Protocol PRN Reason: Rx to Dose Enteral Nutritional Formula (Vital Af 1.2 Juma Liquid) 1,000 mls @ 55 mls/hr GT .[id number] [facility] Last Admin: 06/24/19 08:46 Dose: Not Given Documented by: Ceftriaxone Sodium 2 gm/ (Sodium Chloride) 50 mls @ 100 mls/hr IV Q24 [facility] Last Infusion: 06/24/19 09:31 Dose: Infused Documented by: Metronidazole (Flagyl) 500 mg in 100 mls @ 100 mls/hr IV Q8 [facility] Last Infusion: 06/24/19 14:01 Dose: Infused Documented by: Sodium Chloride () 250 mls @ 15 mls/hr IV .[id number] PRN PRN Reason: Saline Flush Last Infusion: 06/24/19 13:02 Dose: 0 mls/hr Documented by: Sodium Chloride () 250 mls @ 15 mls/hr IV .[id number] PRN PRN Reason: Additional IVPB Infusion Vancomycin HCl () 500 mg in 100 mls @ 100 mls/hr IV X1 ONE Stop: 06/24/19 15:59 Nutritional Formula (Thor - [place] Flavor) 1 packet GT BID [facility] Last Admin: 06/24/19 08:45 Dose: 1 packet Documented by: Senna/Docusate Sodium (Senokot-S, Laureen-Colace) 2 tablet GT DAILY PRN PRN PRN Reason: CONSTIPATION Sodium Chloride () 10 - 40 ml IV UD PRN PRN Reason: SALINE FLUSH Last Admin: 06/20/19 09:14 Dose: 10 ml Documented by: Zinc Sulfate (Zinc Sulfate) 220 mg GT TID [facility] Last Admin: 06/24/19 13:01 Dose: 220 mg Documented by: Medical Necessity - Tobacco Use Smoking Status: Smoker, status unknown Tobacco Use: Non-smoker Route of nutrition/ use of supplements: [] Nutritional Intake: [] IV Site: [] Siddiqi Catheter: [] - Assessment/Plan Antibiotics: [] Assessment/Plan: [] Active and Suspected Problems Severe sepsis (Acute) Acute respiratory failure with hypoxia and hypercapnia (Acute) Bilateral pneumonia (Acute) Infection due to [place] coronavirus (Acute) COVID (+), severe sepsis, acute hypoxic resp failure, decubitus wounds - on vanc/ceftriaxone/flagyl. Wound cx with mrsa, proteus, corynebacteria. QTC in 02/2019 was 540, so avoided plaquenil/azithro. Fever resolved. Cdiff neg. Prior CT showed multiple decubitus abscesses. Sputum still with MRSA. Has been on abx since 06/12. Plan on stopping in next few days. Will follow
--- NOTE | 2019-06-24 19:39 | DIALYSIS ---
Hemodialysis x 3 hours. -2500ml off today. CVC closed with heparin to each lumen fill volume. Report off to HS shift - Della. stable on tx
[2019-06-24] MEDS: Vancomycin IV 500 MG/100 ML BAG 100 MG IV (20:20)
--- NOTE | 2019-06-24 21:00 | NURSING ---
Pt awake and making eye contact, skin is very diaphoretic; fingerstick glucose test 139. Pt asked if she's feeling warm and only returned a blank stare w/out head movement. Will cont to monitor.
[2019-06-24 21:15] LABS: Bedside Glucose 139 mg/dL (70-110)
[2019-06-25] VITALS (34 sets, daily range): BP systolic 82–171; BP diastolic 46–88; PULSE 37–94; RESP 12–34; TEMP 36.1–36.9; O2SAT 84–100
[2019-06-25 04:55] LABS: Vancomycin, Random Level 21.8 ug/mL (0.0-15.0)
[2019-06-25] MEDS: metroNIDAZOLE 500 MG/100 ML BAG 100 MG IV ×3 (05:00→21:40)
[2019-06-25 05:53] LABS: Absolute Neutrophil Count 6.9 X10^3/uL (2.0-7.7); Basophil# 0.03 X10^3/uL; Basophil% 0.3 % (0-1); Eosinophil# 0.04 X10^3/uL; Eosinophils% 0.4 % (0-5); Hematocrit 27.8 % (37-47); Hemoglobin 8.8 g/dL (12.0-15.0); Lymphocyte % 18.4 % (19-41); Mean Corp Hgb Conc 31.7 g/dL (32-36); Mean Corpuscular Hgb 27.4 pg (27.0-32.0); Mean Corpuscular Volume 86.6 fL (81-99); Mean Platelet Vol. 12.1 fl (6.2-12.0); Monocyte# 0.58 X10^3/uL; Monocyte% 5.9 % (0-10); NRBC Flagged by Analyzer 0 % (0-5); Neutrophil # 6.88 X10^3/uL (2.7-7.7); Neutrophil % 70.3 % (47-70); Platelet Count 164 K/mm3 (150-450); RBC Distribution Width CV 19.8 % (11.6-14.6); RBC Distribution Width SD 49.8 fl (35.1-43.9); Red Blood Count 3.21 M/mm3 (4.2-5.4); White Blood Count 9.8 K/mm3 (4.4-11.0)
[2019-06-25 06:03] LABS: Anion Gap 8 (5-15); BUN 74 mg/dL (7-18); BUN/Creat Ratio 37.9 RATIO (10-20); Chloride 100 mmol/L (98-107); Creatinine, Serum 1.95 mg/dL (0.55-1.02); EST Glomerular Filtration Rate 28 mL/min (>60); Est Glom Filt Rate - Afr Amer 34 mL/min (>60); Estimated Creatinine Clearance 26.49 ml/min; Glucose 112 mg/dL (74-106); Magnesium 1.8 mg/dL (1.6-2.6); Phosphorus 3.3 mg/dL (2.5-4.9); Potassium 4.3 mmol/L (3.5-5.1); Sodium Level 135 mmol/L (136-145)
--- NOTE | 2019-06-25 08:06 | PN_ITS ---
Subjective: Patient did well overnight. No acute issues were reported outside of some bradycardia associated with a flutter. This did resolve spontaneously. Patient has remained hemodynamically stable otherwise. Patient did have a spontaneous breathing trial this morning. Secretions continue by mouth, but nursing reports that the family states this is a chronic problem. Patient reportedly drools at baseline. General: Alert, No apparent distress, Confused, Disoriented HEENT: Atraumatic, PERRLA, EOMI, Normocephalic, - - No scleral icterus or injection noted Oral: Moist Mucosa, No Gingival or Mucosal Lesions/ Ulcerations, - - No drooling appreciated. Neck: Supple, No JVD, No Nodes, Trachea Midline Lungs: No rhonchi, No wheeze, No rales, Diminished, - - Symmetric expansion. No dullness to percussion. Cardiovascular: Regular rate, Regular Rhythm, Normal S1, Normal S2, No murmurs, No rub noted, No Gallop, - - Normal sinus noted on telemetry. A flutter was noted overnight Abdomen: Bowel Sounds Present, Soft, Non Tender, Non-Distended, Obese Extremities: No clubbing, No cyanosis, Edema Skin: - - No change compared to previous. Musculoskeletal: No Tenderness to Palpation of Joints or Extremities - Multiple areas of fluctuance appreciated Lymphatic: No Cervical, Supraclavicular, or Inguinal Adenopathy Neurological: - - Grossly unchanged compared to previous. Patient does appear to track more appropriately. Psych/Mental Status: Flat Affect Vital Signs Temp Pulse Resp BP Pulse Ox 36.9 C 58 L 18 100/61 94 06/25/19 05:00 06/25/19 07:42 06/25/19 07:00 06/25/19 07:00 06/25/19 07:00 Oxygen Flow Rate (L/min) 35 Oxygen Delivery Method Mechanical Ventilator Weight: 106.4 kg Body Mass Index (BMI) 39.4 Intake and Output for Last 24 Hours 06/23/19 06/24/19 06/25/19 23:59 23:59 23:59 Intake Total 3093.75 / 3623.75 3594.50 / 3594.50 585.00 / 585.00 Output Total 305 / 350 2920 / 2920 Balance 2788.75 / 3273.75 674.50 / 674.50 565.00 / 565.00 Labs (Last 48 Hours) 06/24/19 06/24/19 06/24/19 04:30 04:30 04:30 WBC 10.5 RBC 3.04 L Hgb 8.3 L Hct 26.1 L MCV 85.9 MCH 27.3 MCHC 31.8 L RDW Std Deviation 50.1 H RDW Coeff of Bassam 19.3 H Plt Count 191 MPV 11.7 Immature Gran % (Auto) 4.700 H Neut % (Auto) 66.5 Lymph % (Auto) 20.6 [place] % (Auto) 6.5 Eos % (Auto) 1.4 Baso % (Auto) 0.3 Absolute Neuts (auto) 7.0 Absolute Lymphs (auto) 2.17 Nucleated RBC % 0 Sodium 136 Potassium 4.5 Chloride 101 Carbon Dioxide 24.0 Anion Gap 11 BUN 125 H* Creatinine 2.77 H Estim Creat Clear Calc 18.65 Est GFR (MDRD) Af Amer 22 L Est GFR (MDRD) Non-Af 19 L BUN/Creatinine Ratio 45.1 H Glucose 124 H Calcium 8.3 L Phosphorus Magnesium Random Vancomycin 17.8 H POC Glucose 06/24/19 06/24/19 06/25/19 04:30 21:03 04:20 WBC 9.8 RBC 3.21 L Hgb 8.8 L Hct 27.8 L MCV 86.6 MCH 27.4 MCHC 31.7 L RDW Std Deviation 49.8 H RDW Coeff of Bassam 19.8 H Plt Count 164 MPV 12.1 H Immature Gran % (Auto) 4.700 H Neut % (Auto) 70.3 H Lymph % (Auto) 18.4 L [place] % (Auto) 5.9 Eos % (Auto) 0.4 Baso % (Auto) 0.3 Absolute Neuts (auto) 6.9 Absolute Lymphs (auto) 1.80 Nucleated RBC % 0 Sodium Potassium Chloride Carbon Dioxide Anion Gap BUN Creatinine Estim Creat Clear Calc Est GFR (MDRD) Af Amer Est GFR (MDRD) Non-Af BUN/Creatinine Ratio Glucose Calcium Phosphorus 3.7 Magnesium 1.9 Random Vancomycin POC Glucose 139 H 06/25/19 06/25/19 04:20 04:25 WBC RBC Hgb Hct MCV MCH MCHC RDW Std Deviation RDW Coeff of Bassam Plt Count MPV Immature Gran % (Auto) Neut % (Auto) Lymph % (Auto) [place] % (Auto) Eos % (Auto) Baso % (Auto) Absolute Neuts (auto) Absolute Lymphs (auto) Nucleated RBC % Sodium 135 L Potassium 4.3 Chloride 100 Carbon Dioxide 27.0 Anion Gap 8 BUN 74 H Creatinine 1.95 H Estim Creat Clear Calc 26.49 Est GFR (MDRD) Af Amer 34 L Est GFR (MDRD) Non-Af 28 L BUN/Creatinine Ratio 37.9 H Glucose 112 H Calcium 8.0 L Phosphorus 3.3 Magnesium 1.8 Random Vancomycin 21.8 H POC Glucose Medical Necessity - Tobacco Use Smoking Status: Smoker, status unknown Tobacco Use: Non-smoker Assessment/Plan All Active Problems Perirectal abscess (Acute) Severe sepsis (Acute) Acute respiratory failure with hypoxia and hypercapnia (Acute) Bilateral pneumonia (Acute) Infection due to [place] coronavirus (Acute) RECOMMENDATIONS: 1. Okay to extubate patient 2. Aggressive pulmonary toileting and continue Robinul 3. Bedside swallow evaluation 4. Continue hemodialysis per nephrology recommendations. 5. Continue to withhold all sedating medications. 6. Continue appropriate ICU prophylaxis. 7. Wean oxygen as tolerated IMPRESSIONS: 1. Acute hypoxemic respiratory failure 2/2 ARDS due to COVID-19 infection combined with MRSA Pneumonia Continue current supportive measures with invasive mechanical ventilatory support, employing a lung protective strategy, along with antimicrobials per infectious diseases recommendations. Azithromycin and Plaquenil were avoided due to prolonged QTC at baseline. Okay to extubate patient, but will need to watch oral secretions closely. Patient's mental status is marginal, but appears to be appropriate. Will continue Robinul for now 2. Severe sepsis secondary to COVID-19 Infection and MRSA Pneumonia Continue current supportive measures as noted above. The patient remains hemodynamically stable. Infectious diseases following. Defer antibiotic selection/course to them. 3. Acute kidney injury The patient developed worsening renal insufficiency over the course of her hospitalization. Concern for ATN in the setting of COVID infection. The patient has become progressively uremic, which has left her an encephalopathic state. Nephrology is currently following to assist with hemodialysis needs. Anticipate possible hemodialysis today given level of uremia. 4. Encephalopathy Concern for toxic metabolic encephalopathy, with underlying worsening uremia contributing. Nephrology is currently following to assist with hemodialysis needs. Continue to withhold all sedating medications. 5. Diabetes mellitus/hypertension/schizoaffective disorder/morbid obesity/multiple decubitus ulcers Complicates care, management, recovery and prognosis. Continue sliding scale insulin coverage. Once patient improves, evaluation by plastic surgery may be necessary. TIME: 35 minutes of critical care time, independent of procedures, was spent addressing the patient's acute hypoxemic respiratory failure, ARDS secondary to coronavirus infection and MRSA pneumonia, severe sepsis, acute kidney injury, encephalopathy, review of all data and collaboration with the care team. (7 AM to 8 AM) [phone]: [id number] Critical care first hour
[2019-06-25 08:10] LABS: Base Excess 3 mmol/L (-2 to +2); Bicarbonate 26.3 mmol/L (22-26); PO2 77 mmHG (75-100); SO2 97 % (95-99); Total Carbon Dioxide 27 mmol/L; pCO2 33.3 mmHg (35-45); pH 7.51 (7.35-7.45)
[2019-06-25 08:15] LABS: Blood Gas Specimen Type ART; Mode CPAP; SITE R RADIAL
[2019-06-25 08:16] LABS: FI02 30; O2 Delivery Device Vent; PEEP 5; PS 5; Time Given 609
--- NOTE | 2019-06-25 09:14 | PN.RENAL_ITS ---
Patient Problems: Active and Suspected Problems Severe sepsis (Acute) Acute respiratory failure with hypoxia and hypercapnia (Acute) Bilateral pneumonia (Acute) Infection due to [facility] coronavirus (Acute) Subjective: nonverbal cannot do ROS follows simple commands squeezes hand as per RN - Physical Exam Vitals/I&O's: Vital Signs Temp Pulse Resp BP Pulse Ox 98.4 F 58 L 18 100/61 94 06/25/19 05:00 06/25/19 07:42 06/25/19 07:00 06/25/19 07:00 06/25/19 07:00 Oxygen Flow Rate (L/min) 35 Oxygen Delivery Method Mechanical Ventilator Weight: 106.4 kg Body Mass Index (BMI) 39.4 Intake and Output for Last 24 Hours 06/23/19 06/24/19 06/25/19 23:59 23:59 23:59 Intake Total 3093.75 / 3623.75 3594.50 / 3594.50 585.00 / 585.00 Output Total 305 / 350 2920 / 2920 Balance 2788.75 / 3273.75 674.50 / 674.50 565.00 / 565.00 Microbiology Past 72 Hours 06/20/19 07:00 Sputum, Induced/Lukens Gram Stain - Final 06/20/19 07:00 Sputum, Induced/Lukens Respiratory Culture - Final Meth. resistant Staph. aureus Laboratory Results 06/24/19 21:03: POC Glucose 139 H 06/25/19 04:20: WBC 9.8, RBC 3.21 L, Hgb 8.8 L, Hct 27.8 L, MCV 86.6, MCH 27.4, MCHC 31.7 L, RDW Std Deviation 49.8 H, RDW Coeff of Bassam 19.8 H, Plt Count 164, MPV 12.1 H, Immature Gran % (Auto) 4.700 H, Neut % (Auto) 70.3 H, Lymph % (Auto) 18.4 L, [place] % (Auto) 5.9, Eos % (Auto) 0.4, Baso % (Auto) 0.3, Absolute Neuts (auto) 6.9, Absolute Lymphs (auto) 1.80, Nucleated RBC % 0 06/25/19 04:20: Sodium 135 L, Potassium 4.3, Chloride 100, Carbon Dioxide 27.0, Anion Gap 8, BUN 74 H, Creatinine 1.95 H, Estim Creat Clear Calc 26.49, Est GFR (MDRD) Af Amer 34 L, Est GFR (MDRD) Non-Af 28 L, BUN/Creatinine Ratio 37.9 H, Glucose 112 H, Calcium 8.0 L, Phosphorus 3.3, Magnesium 1.8 06/25/19 04:25: Random Vancomycin 21.8 H 06/25/19 06:09: Specimen Type ART, Sample Site R RADIAL, pH 7.51 H, Bicarbonate Actual 26.3 H, POC Total CO2 27, Base Excess 3 H, O2 Saturation 97, O2 % 30, ABG pCO2 33.3 L, ABG pO2 77, O2 Delivery Device Vent, Vent Mode CPAP, POC PEEP 5, POC Pressure Suppt 5, Blood Gas Notified Whom ICU MD, Blood Gas Notified Time 609 Current Medications Acetaminophen (Tylenol Liquid) 650 mg GT Q4H PRN PRN PRN Reason: TEMP > 100.5 F Last Admin: 06/18/19 08:52 Dose: 650 mg Documented by: Albuterol Sulfate (Ventolin Aerosols) 2.5 mg INHALATION Q4H PRN PRN PRN Reason: WHEEZING Last Admin: 06/16/19 19:01 Dose: 2.5 mg Documented by: Amiodarone HCl (Cordarone) 400 mg GT DAILY [facility] Last Admin: 06/24/19 08:46 Dose: 400 mg Documented by: Chlorhexidine Gluconate () 15 ml PO BID [facility] Last Admin: 06/24/19 21:12 Dose: 15 ml Documented by: Chlorhexidine Gluconate () 1 each TOPICAL DAILY [facility] Last Admin: 06/24/19 08:45 Dose: 1 each Documented by: Enoxaparin Sodium (Lovenox) 30 mg SC DAILY [facility] Last Admin: 06/24/19 08:45 Dose: 30 mg Documented by: Famotidine (Pepcid) 20 mg GT DAILY [facility] Last Admin: 06/24/19 08:46 Dose: 20 mg Documented by: Glycopyrrolate (Robinul) 1 mg GT BID [facility] Last Admin: 06/24/19 21:13 Dose: 1 mg Documented by: Vancomycin IV Pharmacy to Dose (1 ea/ Sodium Chloride) 500 mls @ 250 mls/hr IV PRN PRN; Protocol PRN Reason: Rx to Dose Enteral Nutritional Formula (Vital Af 1.2 Juma Liquid) 1,000 mls @ 55 mls/hr GT .[id number] [facility] Last Admin: 06/25/19 06:23 Dose: Not Given Documented by: Ceftriaxone Sodium 2 gm/ (Sodium Chloride) 50 mls @ 100 mls/hr IV Q24 [facility] Last Infusion: 06/24/19 09:31 Dose: Infused Documented by: Metronidazole (Flagyl) 500 mg in 100 mls @ 100 mls/hr IV Q8 [facility] Last Infusion: 06/25/19 06:10 Dose: Infused Documented by: Sodium Chloride () 250 mls @ 15 mls/hr IV .[id number] PRN PRN Reason: Saline Flush Last Infusion: 06/25/19 06:10 Dose: 15 mls/hr Documented by: Sodium Chloride () 250 mls @ 15 mls/hr IV .[id number] PRN PRN Reason: Additional IVPB Infusion Nutritional Formula (Thor - [place] Flavor) 1 packet GT BID [facility] Last Admin: 06/24/19 21:13 Dose: 1 packet Documented by: Senna/Docusate Sodium (Senokot-S, Laureen-Colace) 2 tablet GT DAILY PRN PRN PRN Reason: CONSTIPATION Sodium Chloride () 10 - 40 ml IV UD PRN PRN Reason: SALINE FLUSH Last Admin: 06/20/19 09:14 Dose: 10 ml Documented by: Zinc Sulfate (Zinc Sulfate) 220 mg GT TID [facility] Last Admin: 06/25/19 05:00 Dose: 220 mg Documented by: Medical Necessity - Tobacco Use Smoking Status: Smoker, status unknown Tobacco Use: Non-smoker Assessment/Plan All Active Problems Perirectal abscess (Acute) Severe sepsis (Acute) Acute respiratory failure with hypoxia and hypercapnia (Acute) Bilateral pneumonia (Acute) Infection due to [place] coronavirus (Acute) ABIGAIL likely ATN and AIN with COVID-19 and vanco toxicity ARDS s/p extubation COVID-19 Decubitus ulcers with abscesses for likely dialysis tomorrow Keep MAP>65 avoid nephrotoxins abx as per ID appreciate urology input for the moderate left-sided hydronephrosis d/w RN Due to the current efforts to prevent transmission of COVID?19 and also the need to preserve PPE for other caregivers a [id number] encounter with the patient was not performed. That being said, all relevant records and diagnostic tests were reviewed including laboratory test and imaging. Please reference any relevant documentation elsewhere. Care will be coordinated with the primary service.
--- NOTE | 2019-06-25 10:02 | CASEMGMT ---
Addendum entered by Yaneth Benitez 06/25/19 12:35: SW placed a call to [facility] and spoke with Yamilex. SW updated Yamilex that pt was extubated this morning and the doctor was thinking that discharge is still going to be a long time aways. Yamilex states that if pt were to return [place] they would need a negative COVID test to return. Yamilex states that she had spoken to pt's daughter Rosaline and was under the impression that Rosaline was wanting to take pt home at discharge. Yamilex states that if pt were to return they would need a whole new HENS/PAS/RR. KAILASH updated Yamilex that when this worker had spoke with Rosaline too, this worker was also under the impression that she wanted to take pt home at discharge but had informed Rosaline that pt's medical needs may be too much at discharge for pt to safely return home. KAILASH informed Yamilex that at this time, it is uncertain what pt's medical needs will be at discharge but there was mention of possible shelter IV antibiotics and even surgery for pt's wounds. Yamilex requests updated clinicals to be faxed. KAILASH informed Yamilex that this worker is just trying to keep [facility] in the loop in the event that pt does need to return to SNF and unable to return home at discharge. KAILASH faxed updated clinicals to [place]. Original Note: Social Work Note SW participated in ICU rounds. Pt was extubated this morning but is a long way away from being ready for discharge. ID will need to confirm antibiotics at discharge and Dr. Patel will likely need to see pt regarding pt's wounds. SW to continue to follow. Yaneth Benitez AIRCRA[employer] SALES REPRESENTATIVE, FIELD RADIO TECHNICIAN
--- NOTE | 2019-06-25 10:33 | PCM.PN.ID ---
Patient Problems: Active and Suspected Problems Severe sepsis (Acute) Acute respiratory failure with hypoxia and hypercapnia (Acute) Bilateral pneumonia (Acute) Infection due to [facility] coronavirus (Acute) Subjective: Extubated, no fever - Physical Exam Vitals/I&O's: Vital Signs Temp Pulse Resp BP Pulse Ox 98.1 F 69 20 H 127/62 H 93 06/25/19 08:00 06/25/19 09:21 06/25/19 09:21 06/25/19 09:00 06/25/19 09:22 Oxygen Flow Rate (L/min) 4 Oxygen Delivery Method Nasal Cannula Weight: 106.4 kg Body Mass Index (BMI) 39.4 Intake and Output for Last 24 Hours 06/23/19 06/24/19 06/25/19 23:59 23:59 23:59 Intake Total 3093.75 / 3623.75 3594.50 / 3594.50 585.00 / 585.00 Output Total 305 / 350 2920 / 2920 Balance 2788.75 / 3273.75 674.50 / 674.50 565.00 / 565.00 General: Lethargic Lungs: Clear to auscultation, Normal air movement Cardiovascular: Regular rate, Regular Rhythm Abdomen: Soft, Non Tender, Non-Distended Skin: No rashes Microbiology Past 72 Hours 06/20/19 07:00 Sputum, Induced/Lukens Gram Stain - Final 06/20/19 07:00 Sputum, Induced/Lukens Respiratory Culture - Final Meth. resistant Staph. aureus Laboratory Results 06/24/19 21:03: POC Glucose 139 H 06/25/19 04:20: WBC 9.8, RBC 3.21 L, Hgb 8.8 L, Hct 27.8 L, MCV 86.6, MCH 27.4, MCHC 31.7 L, RDW Std Deviation 49.8 H, RDW Coeff of Bassam 19.8 H, Plt Count 164, MPV 12.1 H, Immature Gran % (Auto) 4.700 H, Neut % (Auto) 70.3 H, Lymph % (Auto) 18.4 L, [place] % (Auto) 5.9, Eos % (Auto) 0.4, Baso % (Auto) 0.3, Absolute Neuts (auto) 6.9, Absolute Lymphs (auto) 1.80, Nucleated RBC % 0 06/25/19 04:20: Sodium 135 L, Potassium 4.3, Chloride 100, Carbon Dioxide 27.0, Anion Gap 8, BUN 74 H, Creatinine 1.95 H, Estim Creat Clear Calc 26.49, Est GFR (MDRD) Af Amer 34 L, Est GFR (MDRD) Non-Af 28 L, BUN/Creatinine Ratio 37.9 H, Glucose 112 H, Calcium 8.0 L, Phosphorus 3.3, Magnesium 1.8 06/25/19 04:25: Random Vancomycin 21.8 H 06/25/19 06:09: Specimen Type ART, Sample Site R RADIAL, pH 7.51 H, Bicarbonate Actual 26.3 H, POC Total CO2 27, Base Excess 3 H, O2 Saturation 97, O2 % 30, ABG pCO2 33.3 L, ABG pO2 77, O2 Delivery Device Vent, Vent Mode CPAP, POC PEEP 5, POC Pressure Suppt 5, Blood Gas Notified Whom ICU MD, Blood Gas Notified Time 609 Current Medications Acetaminophen (Tylenol Liquid) 650 mg GT Q4H PRN PRN PRN Reason: TEMP > 100.5 F Last Admin: 06/18/19 08:52 Dose: 650 mg Documented by: Albuterol Sulfate (Ventolin Aerosols) 2.5 mg INHALATION Q4H PRN PRN PRN Reason: WHEEZING Last Admin: 06/16/19 19:01 Dose: 2.5 mg Documented by: Amiodarone HCl (Cordarone) 400 mg GT DAILY [facility] Last Admin: 06/24/19 08:46 Dose: 400 mg Documented by: Chlorhexidine Gluconate () 15 ml PO BID [facility] Last Admin: 06/25/19 09:33 Dose: Not Given Documented by: Chlorhexidine Gluconate () 1 each TOPICAL DAILY [facility] Last Admin: 06/24/19 08:45 Dose: 1 each Documented by: Enoxaparin Sodium (Lovenox) 30 mg SC DAILY [facility] Last Admin: 06/24/19 08:45 Dose: 30 mg Documented by: Famotidine (Pepcid) 20 mg GT DAILY [facility] Last Admin: 06/24/19 08:46 Dose: 20 mg Documented by: Glycopyrrolate (Robinul) 1 mg GT BID [facility] Last Admin: 04/13/20 21:13 Dose: 1 mg Documented by: Vancomycin IV Pharmacy to Dose (1 ea/ Sodium Chloride) 500 mls @ 250 mls/hr IV PRN PRN; Protocol PRN Reason: Rx to Dose Ceftriaxone Sodium 2 gm/ (Sodium Chloride) 50 mls @ 100 mls/hr IV Q24 [facility] Last Infusion: 06/24/19 09:31 Dose: Infused Documented by: Metronidazole (Flagyl) 500 mg in 100 mls @ 100 mls/hr IV Q8 [facility] Last Infusion: 06/25/19 06:10 Dose: Infused Documented by: Sodium Chloride () 250 mls @ 15 mls/hr IV .[id number] PRN PRN Reason: Saline Flush Last Infusion: 06/25/19 06:10 Dose: 15 mls/hr Documented by: Sodium Chloride () 250 mls @ 15 mls/hr IV .[id number] PRN PRN Reason: Additional IVPB Infusion Nutritional Formula (Thor - [place] Flavor) 1 packet GT BID [facility] Last Admin: 06/24/19 21:13 Dose: 1 packet Documented by: Senna/Docusate Sodium (Senokot-S, Laureen-Colace) 2 tablet GT DAILY PRN PRN PRN Reason: CONSTIPATION Sodium Chloride () 10 - 40 ml IV UD PRN PRN Reason: SALINE FLUSH Last Admin: 06/20/19 09:14 Dose: 10 ml Documented by: Zinc Sulfate (Zinc Sulfate) 220 mg GT TID [facility] Last Admin: 06/25/19 05:00 Dose: 220 mg Documented by: Medical Necessity - Tobacco Use Smoking Status: Smoker, status unknown Tobacco Use: Non-smoker Route of nutrition/ use of supplements: [] Nutritional Intake: [] IV Site: [] Siddiqi Catheter: [] - Assessment/Plan Antibiotics: [] Assessment/Plan: [] Active and Suspected Problems Severe sepsis (Acute) Acute respiratory failure with hypoxia and hypercapnia (Acute) Bilateral pneumonia (Acute) Infection due to [place] coronavirus (Acute) COVID (+), severe sepsis, acute hypoxic resp failure, decubitus wounds - on vanc/ceftriaxone/flagyl. Wound cx with mrsa, proteus, corynebacteria. QTC in 02/2019 was 540, so avoided plaquenil/azithro. Fever resolved. Cdiff neg. Prior CT showed multiple decubitus abscesses. Sputum still with MRSA. Has been on abx since 06/12. Plan on stopping tomorrow. Now extubated. Will follow
[2019-06-25] MEDS: Enoxaparin 30 MG/0.3 ML Syringe SC (11:15)
[2019-06-25] MEDS: CHLORHEXIDINE GLUC 2% CLOTH 1 EACH TOWELETTE TOPICAL (11:33)
--- NOTE | 2019-06-25 13:22 | PCM.RX.CS ---
Consult Pharmacy has been consulted to manage selected antiobiotic: Vancomycin Type of Consult: Follow-up Suspected Infection: Sepsis, Pneumonia Prior Doses of Antibiotics Received/Current Regimen: Last dose 500mg iv on 06.21.19. Labs: Sodium 135 mmol/L (136-145) L 06/25/19 04:20 Potassium 4.3 mmol/L (3.5-5.1) 06/25/19 04:20 Chloride 100 mmol/L (98-107) 06/25/19 04:20 Carbon Dioxide 27.0 mmol/L (21.0-32.0) 06/25/19 04:20 Anion Gap 8 (5-15) 06/25/19 04:20 BUN 74 mg/dL (7-18) H 06/25/19 04:20 Creatinine 1.95 mg/dL (0.55-1.02) H 06/25/19 04:20 Est GFR (MDRD) Af Amer 34 mL/min (>60) L 06/25/19 04:20 Est GFR (MDRD) Non-Af 28 mL/min (>60) L 06/25/19 04:20 BUN/Creatinine Ratio 37.9 RATIO (10-20) H 06/25/19 04:20 Glucose 112 mg/dL (74-106) H 06/25/19 04:20 Vancomycin Trough 47.1 ug/mL (5.0-15.0) H 06/15/19 18:00 Random Vancomycin 21.8 ug/mL (0.0-15.0) H 06/25/19 04:25 Microbiology: Microbiology 06/20/19 07:00 Sputum, Induced/Lukens Gram Stain - Final 06/20/19 07:00 Sputum, Induced/Lukens Respiratory Culture - Final Meth. resistant Staph. aureus 06/13/19 13:15 Blood Culture (Wb) - Left Hand Blood Culture - Final No growth in 5 days. 06/13/19 13:15 Blood Culture (Wb) - Anticubital Right Blood Culture - Final No growth in 5 days. 06/18/19 09:00 Stool C. difficile DNA Amplification - Final 06/13/19 14:47 Urine Catheter - Siddiqi Urine Culture - Final Presumptive C albicans Meth. resistant Staph. aureus Enterococcus faecalis 06/13/19 18:00 Wound - Buttock Gram Stain - Final 06/13/19 18:00 Wound - Buttock Wound Culture - Final Proteus mirabilis Meth. resistant Staph. aureus Corynebacterium amycolatum 06/14/19 12:30 Sputum, Induced/Lukens Gram Stain - Final 06/14/19 12:30 Sputum, Induced/Lukens Respiratory Culture - Final Meth. resistant Staph. aureus 06/13/19 18:00 Wound - Abdominal Gram Stain - Final 06/13/19 18:00 Wound - Abdominal Wound Culture - Final Proteus mirabilis Meth. resistant Staph. aureus Corynebacterium amycolatum Weight used for dosin kg Estimated Creatinine Clearance: ~26ml/min Goal Trough: 15-20 mcg/mL Pharmacy Plan for Drug Dosing: Random level today 21.8. No vancomycin to be given. Patient not getting dialysis today. Have ordered another random level for AM 4.15.20. If level <20 and patient gets dialysis, will redose then. Pharmacy Service will continue to monitor and adjust dosing as required. Follow-Up Labs: Trough Vancomycin - random level 4.15.20 @0600
--- NOTE | 2019-06-25 16:45 | NURSING ---
Pt pulse ox decrease to 79% on 15L. Entered room and applied 100% NRB and deep suctioned patient x2. Pulse ox increased to 84% with no further improvement. Dr. box notified and new orders recieved along with instructions to notify the hospitalist. Contacted Dr. Rios to come evaluate the patient. Contacted daughter to update patient. Daughter states I want her reintubated no matter what because tomorrow is my birthday and she needs to be here for it despite being instructed the patient did not want reintubated.
--- NOTE | 2019-06-25 16:50 | RAD_ITS ---
STUDY: X-RAY CHEST REASON FOR EXAM: Female, 59 years old. Hypoxia TECHNIQUE: Single AP portable view of the chest. COMPARISON: 06/18/2019 FINDINGS: Interval removal of endotracheal tube and nasogastric tube. Right internal jugular temporary dialysis catheter which is unchanged. No change in the patchy alveolar opacities in both lungs consistent with bilateral pneumonia, pulmonary edema, or ARDS. Small left pleural effusion. There is moderate cardiac enlargement. Normal mediastinum and fernanda. Normal visualized pulmonary arteries. Normal visualized aortic arch and descending thoracic aorta. Normal visualized thoracic spine. Normal visualized ribs, clavicles, and shoulders. There is no demonstrated abnormality of the visualized soft tissue structures of the upper abdomen. RAD/Chest 1 View (Portable) IMPRESSION: 1. Interval removal of endotracheal tube and nasogastric tube. 2. Right internal jugular temporary dialysis catheter which is unchanged. 3. No change in bilateral pneumonia, edema, or ARDS. 4. No change in small left pleural effusion. Electronically Signed: Colt Pederson MD at 17:25 EDT Tel , Service support ,
--- NOTE | 2019-06-25 17:32 | PCM.HOSP.N ---
Hospitalist Note 17:32 I was called by nurse to see patient. Patient was extubated this morning. However she was noted to be getting more short of breath late this afternoon and was requiring up to 15 L of oxygen. Saturation dropped to the 70s and came up to the high 80s and low 90s on the 15 L of oxygen. Patient had informed her nurse verbally today that she would not want to be intubated again if need be. Of note, I was informed that patient's CODE STATUS was DNR CCA but this was revoked by her daughter on admission and she was made a full code. I was called to speak to patient to clarify CODE STATUS. I spoke to patient at her bedside. Patient was alert and lethargic. However she could see her name and where she was and what the date was. I explained to her that she was very short of breath was requiring a lot of oxygen and may need to be intubated again. Patient immediately shook her head when asked if she would want to be intubated again. I again repeated the question and asked patient if she will want to be intubated if need be. Patient again said no and emphatically shook her head. I explained to patient that there was a chance that she could if she got very short of breath and really needed intubation and did not get it. I asked patient if she understood that the worst scenario was her dying if not intubated. Patient nodded her head and said yes. I explained to patient that per my understanding, she would not want to be intubated and understood that there risk of not being intubated if she went into respiratory failure was her time. Again patient nodded her head and said yes and a weak voice. I then called her daughter Rosaline and discussed my conversation with the patient with her on speaker phone, witnessed by patient's nurse. Her daughter expressed understanding that her mother did not want to be intubated. Daughter asked if we could override her mother's wishes and intubate her as per daughter's wishes. I explained to daughter that we could not do that as her mother was alert and oriented x3 and did seem to understand the situation and her wishes were that she did not want to be intubated. We therefore had to respect her mother's wishes as long as she was able to make her own decisions. Daughter expressed understanding of this. CODE STATUS will be changed to DNR CCA DO NOT INTUBATE per discussion with patient.
[2019-06-25 17:45] LABS: Base Excess 2 mmol/L (-2 to +2); Bicarbonate 25.6 mmol/L (22-26); PO2 53 mmHG (75-100); SO2 89 % (95-99); Total Carbon Dioxide 27 mmol/L; pCO2 34.3 mmHg (35-45); pH 7.48 (7.35-7.45)
[2019-06-25 17:54] LABS: Blood Gas Specimen Type ART; O2 Delivery Device NRB Mask; SITE R RADIAL
--- NOTE | 2019-06-25 21:03 | NURSING ---
Pt's sister called in, given basic pt information as approved by patient. Sister states acceptance of decision for no re-intubation as per pt wishes.
[2019-06-25] MEDS: Chlorhexidine 15 ML PO (21:39)
[2019-06-25] MEDS: Glycopyrrolate 1 MG TABLET PO (21:40)
[2019-06-25] MEDS: 0.9% Saline Lock 10 ML Syringe IV (21:49)
[2019-06-26] VITALS (36 sets, daily range): BP systolic 105–184; BP diastolic 45–101; PULSE 76–128; RESP 12–31; TEMP 36.6–37.4; O2SAT 84–100
[2019-06-26 04:49] LABS: Vancomycin, Random Level 18.9 ug/mL (0.0-15.0)
--- NOTE | 2019-06-26 05:05 | CPS ---
pt desaturating, increased FiO2 to 100%
--- NOTE | 2019-06-26 05:21 | NURSING ---
Pt turned hard left, oxygen sat drops to 86% shortly after turn. Pt provided mouth care and deep oral suctioning;RT called. BiPAP FiO2 increased to 100%,pt did not increase p.ox.;pt repositioned back to right side, p.ox increased to 92%.
[2019-06-26] MEDS: metroNIDAZOLE 500 MG/100 ML BAG 100 MG IV ×3 (05:30→22:43)
--- NOTE | 2019-06-26 05:39 | NURSING ---
Pt remains on right side, p.ox 100%.
[2019-06-26 06:11] LABS: Absolute Lymphocyte Count 1.18 X10^3/uL (0.83-4.51); Absolute Neutrophil Count 15.2 X10^3/uL (2.0-7.7); Basophil# 0.04 X10^3/uL; Basophil% 0.2 % (0-1); Eosinophil# 0.06 X10^3/uL; Eosinophils% 0.3 % (0-5); Hematocrit 30.9 % (37-47); Hemoglobin 9.6 g/dL (12.0-15.0); Lymphocyte # 1.18 X10^3/ul (4.0); Lymphocyte % 6.7 % (19-41); Mean Corp Hgb Conc 31.1 g/dL (32-36); Mean Corpuscular Hgb 27.5 pg (27.0-32.0); Mean Corpuscular Volume 88.5 fL (81-99); Mean Platelet Vol. 11.6 fl (6.2-12.0); Monocyte# 0.68 X10^3/uL; Monocyte% 3.9 % (0-10); NRBC Flagged by Analyzer 0 % (0-5); Neutrophil # 15.17 X10^3/uL (2.7-7.7); Neutrophil % 86.7 % (47-70); POSITIVE MORPHOLOGY YES; Platelet Count 192 K/mm3 (150-450); RBC Distribution Width CV 20.8 % (11.6-14.6); RBC Distribution Width SD 51.9 fl (35.1-43.9); Red Blood Count 3.49 M/mm3 (4.2-5.4); White Blood Count 17.5 K/mm3 (4.4-11.0)
[2019-06-26 06:15] LABS: Differential Indicated SCAN CRITERIA MET
[2019-06-26 06:16] LABS: Anion Gap 9 (5-15); BUN 85 mg/dL (7-18); BUN/Creat Ratio 34.6 RATIO (10-20); Calcium,Total 8.4 mg/dL (8.5-10.1); Chloride 101 mmol/L (98-107); Creatinine, Serum 2.46 mg/dL (0.55-1.02); EST Glomerular Filtration Rate 21 mL/min (>60); Est Glom Filt Rate - Afr Amer 26 mL/min (>60); Glucose 102 mg/dL (74-106); Potassium 4.6 mmol/L (3.5-5.1); Sodium Level 136 mmol/L (136-145)
[2019-06-26 06:30] LABS: Differential Comment SCANNED
[2019-06-26 06:32] LABS: Anisocytosis 1+; Macrocytosis RARE; Microcytosis RARE; Polychromasia RARE; Stomatocyte RARE
--- NOTE | 2019-06-26 07:35 | CPS ---
She is in the prone position at tis time
--- NOTE | 2019-06-26 09:00 | PN.RENAL_ITS ---
Patient Problems: Active and Suspected Problems Severe sepsis (Acute) Acute respiratory failure with hypoxia and hypercapnia (Acute) Bilateral pneumonia (Acute) Infection due to [facility] coronavirus (Acute) Subjective: per RN no c/o today in prone position on bipap 90 % no sob - Physical Exam Vitals/I&O's: Vital Signs Temp Pulse Resp BP Pulse Ox 98.9 F 92 24 H 110/45 L 92 06/26/19 06:00 06/26/19 07:52 06/26/19 07:32 06/26/19 06:00 06/26/19 07:32 Oxygen Flow Rate (L/min) 15 Oxygen Delivery Method Bi-pap Weight: 99.4 kg Body Mass Index (BMI) 39.4 Intake and Output for Last 24 Hours 06/24/19 06/25/19 06/26/19 23:59 23:59 23:59 Intake Total 3594.50 / 3594.50 1027.50 / 1027.50 100 / 100 Output Total 2920 / 2920 470 / 570 115 / 115 Balance 674.50 / 674.50 557.50 / 457.50 -15 15 Laboratory Results 06/25/19 17:26: Specimen Type ART, Sample Site R RADIAL, pH 7.48 H, Bicarbonate Actual 25.6, POC Total CO2 27, Base Excess 2, O2 Saturation 89 L, ABG pCO2 34.3 L, ABG pO2 53 L, O2 Delivery Device NRB Mask, Liter Flow 15.0 06/26/19 04:10: Random Vancomycin 18.9 H 06/26/19 04:10: WBC 17.5 H, RBC 3.49 L, Hgb 9.6 L, Hct 30.9 L, MCV 88.5, MCH 27.5, MCHC 31.1 L, RDW Std Deviation 51.9 H, RDW Coeff of Bassam 20.8 H, Plt Count 192, MPV 11.6, Immature Gran % (Auto) 2.200 H, Neut % (Auto) 86.7 H, Lymph % (Auto) 6.7 L, [place] % (Auto) 3.9, Eos % (Auto) 0.3, Baso % (Auto) 0.2, Absolute Neuts (auto) 15.2 H, Absolute Lymphs (auto) 1.18, Nucleated RBC % 0, Differential Comment SCANNED, Polychromasia RARE, Anisocytosis 1+, Microcytosis RARE, Macrocytosis RARE, Stomatocytes RARE 06/26/19 04:10: Sodium 136, Potassium 4.6, Chloride 101, Carbon Dioxide 26.0, Anion Gap 9, BUN 85 H, Creatinine 2.46 H, Estim Creat Clear Calc 21.00, Est GFR (MDRD) Af Amer 26 L, Est GFR (MDRD) Non-Af 21 L, BUN/Creatinine Ratio 34.6 H, Glucose 102, Calcium 8.4 L Current Medications Acetaminophen (Tylenol) 650 mg PO Q4H PRN PRN PRN Reason: TEMP > 100.5 F Albuterol Sulfate (Ventolin Aerosols) 2.5 mg INHALATION Q4H PRN PRN PRN Reason: WHEEZING Last Admin: 06/16/19 19:01 Dose: 2.5 mg Documented by: Amiodarone HCl (Cordarone) 400 mg PO DAILY [facility] Last Admin: 06/26/19 08:01 Dose: Not Given Documented by: Chlorhexidine Gluconate () 15 ml PO BID [facility] Last Admin: 06/26/19 08:00 Dose: Not Given Documented by: Chlorhexidine Gluconate () 1 each TOPICAL DAILY [facility] Last Admin: 06/25/19 11:33 Dose: 1 each Documented by: Enoxaparin Sodium (Lovenox) 30 mg SC DAILY [facility] Last Admin: 06/25/19 11:15 Dose: 30 mg Documented by: Famotidine (Pepcid) 20 mg PO DAILY [facility] Last Admin: 06/26/19 08:02 Dose: Not Given Documented by: Glycopyrrolate (Robinul) 1 mg PO BID [facility] Last Admin: 06/26/19 08:02 Dose: Not Given Documented by: Vancomycin IV Pharmacy to Dose (1 ea/ Sodium Chloride) 500 mls @ 250 mls/hr IV PRN PRN; Protocol PRN Reason: Rx to Dose Ceftriaxone Sodium 2 gm/ (Sodium Chloride) 50 mls @ 100 mls/hr IV Q24 [facility] Last Infusion: 06/25/19 11:34 Dose: Infused Documented by: Metronidazole (Flagyl) 500 mg in 100 mls @ 100 mls/hr IV Q8 [facility] Last Infusion: 06/26/19 06:40 Dose: Infused Documented by: Sodium Chloride () 250 mls @ 15 mls/hr IV .[id number] PRN PRN Reason: Saline Flush Last Infusion: 06/25/19 19:00 Dose: 0 mls/hr Documented by: Sodium Chloride () 250 mls @ 15 mls/hr IV .[id number] PRN PRN Reason: Additional IVPB Infusion Nutritional Formula (Thor - [place] Flavor) 1 packet PO BID [facility] Last Admin: 06/26/19 08:01 Dose: Not Given Documented by: Senna/Docusate Sodium (Senokot-S, Laureen-Colace) 2 tablet PO DAILY PRN PRN PRN Reason: CONSTIPATION Sodium Chloride () 10 - 40 ml IV UD PRN PRN Reason: SALINE FLUSH Last Admin: 06/25/19 21:49 Dose: 10 ml Documented by: Zinc Sulfate (Zinc Sulfate) 220 mg PO TID [facility] Last Admin: 06/26/19 06:52 Dose: Not Given Documented by: Medical Necessity - Tobacco Use Smoking Status: Smoker, status unknown Tobacco Use: Non-smoker Assessment/Plan All Active Problems Perirectal abscess (Acute) Severe sepsis (Acute) Acute respiratory failure with hypoxia and hypercapnia (Acute) Bilateral pneumonia (Acute) Infection due to [place] coronavirus (Acute) ABIGAIL likely ATN and AIN with COVID-19 and vanco toxicity ARDS s/p extubation COVID-19 Decubitus ulcers with abscesses for dialysis today if no recovery of renal function will need placement of tunneled dialysis catheter soon when cleared by infectious disease Keep MAP>65 avoid nephrotoxins abx as per ID appreciate urology input for the moderate left-sided hydronephrosis d/w RN and HD RN Due to the current efforts to prevent transmission of COVID?19 and also the need to preserve PPE for other caregivers a [id number] encounter with the patient was not performed. That being said, all relevant records and diagnostic tests were reviewed including laboratory test and imaging. Please reference any relevant documentation elsewhere. Care will be coordinated with the primary service.
--- NOTE | 2019-06-26 09:11 | PCM.RX.CS ---
Consult Pharmacy has been consulted to manage selected antiobiotic: Vancomycin Type of Consult: Follow-up Suspected Infection: Sepsis, Pneumonia Prior Doses of Antibiotics Received/Current Regimen: Last dose was 500mg on 06.21.19. Labs: Sodium 136 mmol/L (136-145) 06/26/19 04:10 Potassium 4.6 mmol/L (3.5-5.1) 06/26/19 04:10 Chloride 101 mmol/L (98-107) 06/26/19 04:10 Carbon Dioxide 26.0 mmol/L (21.0-32.0) 06/26/19 04:10 Anion Gap 9 (5-15) 06/26/19 04:10 BUN 85 mg/dL (7-18) H 06/26/19 04:10 Creatinine 2.46 mg/dL (0.55-1.02) H 06/26/19 04:10 Est GFR (MDRD) Af Amer 26 mL/min (>60) L 06/26/19 04:10 Est GFR (MDRD) Non-Af 21 mL/min (>60) L 06/26/19 04:10 BUN/Creatinine Ratio 34.6 RATIO (-20) H 06/26/19 04:10 Glucose 102 mg/dL (74-106) 06/26/19 04:10 Vancomycin Trough 47.1 ug/mL (5.0-15.0) H 06/15/19 18:00 Random Vancomycin 18.9 ug/mL (0.0-15.0) H 06/26/19 04:10 Microbiology: Microbiology 06/20/19 07:00 Sputum, Induced/Lukens Gram Stain - Final 06/20/19 07:00 Sputum, Induced/Lukens Respiratory Culture - Final Meth. resistant Staph. aureus 06/13/19 13:15 Blood Culture (Wb) - Left Hand Blood Culture - Final No growth in 5 days. 06/13/19 13:15 Blood Culture (Wb) - Anticubital Right Blood Culture - Final No growth in 5 days. 06/18/19 09:00 Stool C. difficile DNA Amplification - Final 06/13/19 14:47 Urine Catheter - Siddiqi Urine Culture - Final Presumptive C albicans Meth. resistant Staph. aureus Enterococcus faecalis 06/13/19 18:00 Wound - Buttock Gram Stain - Final 06/13/19 18:00 Wound - Buttock Wound Culture - Final Proteus mirabilis Meth. resistant Staph. aureus Corynebacterium amycolatum 06/14/19 12:30 Sputum, Induced/Lukens Gram Stain - Final 06/14/19 12:30 Sputum, Induced/Lukens Respiratory Culture - Final Meth. resistant Staph. aureus 06/13/19 18:00 Wound - Abdominal Gram Stain - Final 06/13/19 18:00 Wound - Abdominal Wound Culture - Final Proteus mirabilis Meth. resistant Staph. aureus Corynebacterium amycolatum Weight used for dosin.4 kg Estimated Creatinine Clearance: ~21ml/min Goal Trough: 15-20 mcg/mL Pharmacy Plan for Drug Dosing: Random level reported today as 18.9. Meets goal of <20 and patient to get dialysis today. Have ordered 500mg iv x 1 to be given after dialysis. Another random level will be ordered for AM 06.27.19. Pharmacy Service will continue to monitor and adjust dosing as required. Follow-Up Labs: Trough Vancomycin - random 06.27.19 @0600
[2019-06-26] MEDS: CHLORHEXIDINE GLUC 2% CLOTH 1 EACH TOWELETTE TOPICAL (10:40)
[2019-06-26] MEDS: Enoxaparin 30 MG/0.3 ML Syringe SC (10:40)
--- NOTE | 2019-06-26 10:47 | CASEMGMT ---
Addendum entered by Yaneth Benitez 06/26/19 14:21: SW did receive HCPOA and LW documents from [facility]. HCPOA states that pt's daughter Rosaline Smith is HCPOA for pt. Files placed on pt's chart. Addendum entered by Yaneth Benitez 06/26/19 13:33: KAILASH placed a call to [employer] at [facility] again requesting documents. [employer] states it does appear they have POA and LW on file. KAILASH again requested documents be faxed over for this worker. KAILASH spoke with RN, and MILK HANDLER and informed them that this worker is not able to enter COVID rooms due to not being able to be fitted and RN confirms pt is not able to talk since pt is on Bipap so this worker encouraged RN, MILK HANDLER to keep asking pt about intubation and have two or so people in pt's room when pt is making decisions and then make sure to chart the pt's responses. KAILASH explained that this worker can't really speak to pt regarding HCPOA as again this worker is not fitted to enter COVID rooms and pt is on bipap, unable to speak to this worker on the phone. RN and MILK HANDLER state understanding. Wound Nurse Sarah informed this worker that she went into pt's room to change dressings and she asked pt again if she wanted to be intubated again if needed and pt shook her head no. SW asked wound nurse to chart this as well. Wound Nurse states understanding, will chart conversation with pt. Original Note: Social Work Note SW received referral to discuss HCPOA with pt. Pt currently in COVID precautions and on Bipap. SW has not been fitted for proper PPE to enter pt's room for COVID patients. KAILASH placed a call to [employer] at [facility]. [facility] states that she thinks she has HCPOA on file for pt and thought she had faxed over documents. KAILASH requests documents to be faxed again so this worker can have documents on file. KAILASH waiting for fax. Yaneth Benitez QUALITY REVIEWER, BLOOD BANK MANAGER
--- NOTE | 2019-06-26 12:46 | PN_ITS ---
Subjective: Late entry: Patient did okay initially after extubation. However, over the afternoon and evening yesterday, patient became progressively more hypoxic. There was significant discussion about patient's CODE STATUS, please refer to nursing notes. Patient is currently DNR Comfort Care arrest without intubation. Patient was agreeable to BiPAP therapy. This morning, patient continued to be marginal on saturations despite 100% FiO2. Patient was proned and has been tolerating this well. There has been some improvement in oxygenation. General: Alert, Cooperative, - - Mild to moderate conversational dyspnea. Good BiPAP synchrony. HEENT: Atraumatic, PERRLA, EOMI, Normocephalic, - - No scleral icterus or injection noted Oral: Moist Mucosa, No Gingival or Mucosal Lesions/ Ulcerations Neck: Supple, No JVD, No Nodes, Trachea Midline Lungs: No rhonchi, No wheeze, Diminished, Rales, - - Symmetric expansion Cardiovascular: Normal S1, Normal S2, No murmurs, No rub noted, No Gallop, Tachycardic Abdomen: Bowel Sounds Present, Soft, Non Tender, Non-Distended, Obese Extremities: No clubbing, No cyanosis, Edema Skin: No rashes, No breakdown Musculoskeletal: No Tenderness to Palpation of Joints or Extremities Lymphatic: No Cervical, Supraclavicular, or Inguinal Adenopathy Neurological: Cranial nerves II-XII grossly intact, Neuro grossly intact, Motor Exam 5/5 strength throughout Psych/Mental Status: Normal Affect, Appropriate Vital Signs Temp Pulse Resp BP Pulse Ox 36.9 C 111 H 26 H 133/77 H 92 06/26/19 12:00 06/26/19 12:00 06/26/19 12:00 06/26/19 12:00 06/26/19 12:00 Oxygen Flow Rate (L/min) 15 Oxygen Delivery Method Bi-pap Weight: 99.4 kg Body Mass Index (BMI) 39.4 Intake and Output for Last 24 Hours 06/24/19 06/25/19 06/26/19 23:59 23:59 23:59 Intake Total 3594.50 / 3594.50 1027.50 / 1027.50 150 / 150 Output Total 2920 / 2920 470 / 570 115 / 115 Balance 674.50 / 674.50 557.50 / 457.50 35 / 35 Labs (Last 48 Hours) 06/24/19 06/25/19 06/25/19 21:03 04:20 04:20 WBC 9.8 RBC 3.21 L Hgb 8.8 L Hct 27.8 L MCV 86.6 MCH 27.4 MCHC 31.7 L RDW Std Deviation 49.8 H RDW Coeff of Bassam 19.8 H Plt Count 164 MPV 12.1 H Immature Gran % (Auto) 4.700 H Neut % (Auto) 70.3 H Lymph % (Auto) 18.4 L [place] % (Auto) 5.9 Eos % (Auto) 0.4 Baso % (Auto) 0.3 Absolute Neuts (auto) 6.9 Absolute Lymphs (auto) 1.80 Nucleated RBC % 0 Differential Comment Polychromasia Anisocytosis Microcytosis Macrocytosis Stomatocytes Specimen Type Sample Site pH Bicarbonate Actual POC Total CO2 Base Excess O2 Saturation O2 % ABG pCO2 ABG pO2 O2 Delivery Device Liter Flow Vent Mode POC PEEP POC Pressure Suppt Blood Gas Notified Whom Blood Gas Notified Time Sodium 135 L Potassium 4.3 Chloride 100 Carbon Dioxide 27.0 Anion Gap 8 BUN 74 H Creatinine 1.95 H Estim Creat Clear Calc 26.49 Est GFR (MDRD) Af Amer 34 L Est GFR (MDRD) Non-Af 28 L BUN/Creatinine Ratio 37.9 H Glucose 112 H Calcium 8.0 L Phosphorus 3.3 Magnesium 1.8 Random Vancomycin POC Glucose 139 H 06/25/19 06/25/19 06/25/19 04:25 06:09 17:26 WBC RBC Hgb Hct MCV MCH MCHC RDW Std Deviation RDW Coeff of Bassam Plt Count MPV Immature Gran % (Auto) Neut % (Auto) Lymph % (Auto) [place] % (Auto) Eos % (Auto) Baso % (Auto) Absolute Neuts (auto) Absolute Lymphs (auto) Nucleated RBC % Differential Comment Polychromasia Anisocytosis Microcytosis Macrocytosis Stomatocytes Specimen Type ART ART Sample Site R RADIAL R RADIAL pH 7.51 H 7.48 H Bicarbonate Actual 26.3 H 25.6 POC Total CO2 27 27 Base Excess 3 H 2 O2 Saturation 97 89 L O2 % 30 ABG pCO2 33.3 L 34.3 L ABG pO2 77 53 L O2 Delivery Device Vent NRB Mask Liter Flow 15.0 Vent Mode CPAP POC PEEP 5 POC Pressure Suppt 5 Blood Gas Notified Whom ICU MD Blood Gas Notified Time 609 Sodium Potassium Chloride Carbon Dioxide Anion Gap BUN Creatinine Estim Creat Clear Calc Est GFR (MDRD) Af Amer Est GFR (MDRD) Non-Af BUN/Creatinine Ratio Glucose Calcium Phosphorus Magnesium Random Vancomycin 21.8 H POC Glucose 06/26/19 06/26/19 06/26/19 04:10 04:10 04:10 WBC 17.5 H RBC 3.49 L Hgb 9.6 L Hct 30.9 L MCV 88.5 MCH 27.5 MCHC 31.1 L RDW Std Deviation 51.9 H RDW Coeff of Bassam 20.8 H Plt Count 192 MPV 11.6 Immature Gran % (Auto) 2.200 H Neut % (Auto) 86.7 H Lymph % (Auto) 6.7 L [place] % (Auto) 3.9 Eos % (Auto) 0.3 Baso % (Auto) 0.2 Absolute Neuts (auto) 15.2 H Absolute Lymphs (auto) 1.18 Nucleated RBC % 0 Differential Comment SCANNED Polychromasia RARE Anisocytosis 1+ Microcytosis RARE Macrocytosis RARE Stomatocytes RARE Specimen Type Sample Site pH Bicarbonate Actual POC Total CO2 Base Excess O2 Saturation O2 % ABG pCO2 ABG pO2 O2 Delivery Device Liter Flow Vent Mode POC PEEP POC Pressure Suppt Blood Gas Notified Whom Blood Gas Notified Time Sodium 136 Potassium 4.6 Chloride 101 Carbon Dioxide 26.0 Anion Gap 9 BUN 85 H Creatinine 2.46 H Estim Creat Clear Calc 21.00 Est GFR (MDRD) Af Amer 26 L Est GFR (MDRD) Non-Af 21 L BUN/Creatinine Ratio 34.6 H Glucose 102 Calcium 8.4 L Phosphorus Magnesium Random Vancomycin 18.9 H POC Glucose Clinical Impression(s) from Imaging Studies Chest X-Ray 06/25/19 16:50 IMPRESSION: 1. Interval removal of endotracheal tube and nasogastric tube. 2. Right internal jugular temporary dialysis catheter which is unchanged. 3. No change in bilateral pneumonia, edema, or ARDS. 4. No change in small left pleural effusion. Electronically Signed: Colt Pederson MD at 17:25 EDT Tel , Service support , Medical Necessity - Tobacco Use Smoking Status: Smoker, status unknown Tobacco Use: Non-smoker Assessment/Plan All Active Problems Perirectal abscess (Acute) Severe sepsis (Acute) Acute respiratory failure with hypoxia and hypercapnia (Acute) Bilateral pneumonia (Acute) Infection due to [place] coronavirus (Acute) RECOMMENDATIONS: 1. Prone positioning per protocol 2. Aggressive pulmonary toileting and continue Robinul 3. Continue BiPAP therapy 4. Continue hemodialysis per nephrology recommendations. 5. Continue to withhold all sedating medications. 6. Continue appropriate ICU prophylaxis. 7. Wean oxygen as tolerated 8. DNR Comfort Care arrest without intubation IMPRESSIONS: 1. Acute hypoxemic respiratory failure 2/2 ARDS due to COVID-19 infection combined with MRSA Pneumonia Continue current supportive measures with invasive mechanical ventilatory support, employing a lung protective strategy, along with antimicrobials per infectious diseases recommendations. Azithromycin and Plaquenil were avoided due to prolonged QTC at baseline. Patient was extubated yesterday, but is consistently having increased oxygen demand. Unclear if this is secondary to silent aspiration versus recurrent edema associated with cytokine storm and COVID-19. Patient is responding now to BiPAP with prone positioning. We will continue for now. Patient should have hemodialysis today with volume removal. 2. Severe sepsis secondary to COVID-19 Infection and MRSA Pneumonia Continue current supportive measures as noted above. The patient remains hemodynamically stable. Infectious diseases following. Defer antibiotic selection/course to them. 3. Acute kidney injury The patient developed worsening renal insufficiency over the course of her hospitalization. Concern for ATN in the setting of COVID infection. The patient has become progressively uremic, which has left her an encephalopathic state. Nephrology is currently following to assist with hemodialysis needs. 4. Encephalopathy Appears to be resolving with hemodialysis. Concern for toxic metabolic encephalopathy, with underlying worsening uremia contributing. Nephrology is currently following to assist with hemodialysis needs. Continue to withhold all sedating medications. 5. Diabetes mellitus/hypertension/schizoaffective disorder/morbid obesity/multiple decubitus ulcers Complicates care, management, recovery and prognosis. Continue sliding scale insulin coverage. Once patient improves, evaluation by plastic surgery may be necessary. TIME: 38 minutes of critical care time, independent of procedures, was spent addressing the patient's acute hypoxemic respiratory failure, ARDS secondary to coronavirus infection and MRSA pneumonia, severe sepsis, acute kidney injury, encephalopathy, review of all data and collaboration with the care team. (8 AM to 11 AM) [id number]: [id number] Critical care first hour
--- NOTE | 2019-06-26 13:33 | NURSING ---
In to reassess wounds to jojo anal area, buttocks and heel. patient is currently in a prone position with Bipap on. When asked if patient was comfortable, patient shakes her head yes. Did assess shoulders and chin. No pressure noted at this time. this will need to be monitored closely if patient will be in prone position for long periods. This nurse asked patient if she would want to be intubated again if she needed to, and patient shook head no. right away. This nurse stated so you do not want the tube put back in your throat if you are not able to breathe well? and patient shook her head no. Did discuss this with pt's nurse AMAYA Gaytan as well.
--- NOTE | 2019-06-26 14:45 | PCM.PN.ID ---
Patient Problems: Active and Suspected Problems Severe sepsis (Acute) Acute respiratory failure with hypoxia and hypercapnia (Acute) Bilateral pneumonia (Acute) Infection due to [facility] coronavirus (Acute) Subjective: Extubated, had worsened status, now on NIPPV and prone. Breathing ok now. - Physical Exam Vitals/I&O's: Vital Signs Temp Pulse Resp BP Pulse Ox 98.5 F 111 H 26 H 133/77 H 92 06/26/19 12:00 06/26/19 12:00 06/26/19 12:00 06/26/19 12:00 06/26/19 12:00 Oxygen Flow Rate (L/min) 15 Oxygen Delivery Method Bi-pap Weight: 99.4 kg Body Mass Index (BMI) 39.4 Intake and Output for Last 24 Hours 06/24/19 06/25/19 06/26/19 23:59 23:59 23:59 Intake Total 3594.50 / 3594.50 1027.50 / 1027.50 150 / 150 Output Total 2920 / 2920 470 / 570 115 / 115 Balance 674.50 / 674.50 557.50 / 457.50 35 / 35 General: Alert, Cooperative, No apparent distress Lungs: Clear to auscultation, Normal air movement Cardiovascular: Regular rate, Regular Rhythm Abdomen: Soft, Non Tender, Non-Distended Skin: Ulcer/ Wound Laboratory Results 06/25/19 17:26: Specimen Type ART, Sample Site R RADIAL, pH 7.48 H, Bicarbonate Actual 25.6, POC Total CO2 27, Base Excess 2, O2 Saturation 89 L, ABG pCO2 34.3 L, ABG pO2 53 L, O2 Delivery Device NRB Mask, Liter Flow 15.0 06/26/19 04:10: Random Vancomycin 18.9 H 06/26/19 04:10: WBC 17.5 H, RBC 3.49 L, Hgb 9.6 L, Hct 30.9 L, MCV 88.5, MCH 27.5, MCHC 31.1 L, RDW Std Deviation 51.9 H, RDW Coeff of Bassam 20.8 H, Plt Count 192, MPV 11.6, Immature Gran % (Auto) 2.200 H, Neut % (Auto) 86.7 H, Lymph % (Auto) 6.7 L, [place] % (Auto) 3.9, Eos % (Auto) 0.3, Baso % (Auto) 0.2, Absolute Neuts (auto) 15.2 H, Absolute Lymphs (auto) 1.18, Nucleated RBC % 0, Differential Comment SCANNED, Polychromasia RARE, Anisocytosis 1+, Microcytosis RARE, Macrocytosis RARE, Stomatocytes RARE 06/26/19 04:10: Sodium 136, Potassium 4.6, Chloride 101, Carbon Dioxide 26.0, Anion Gap 9, BUN 85 H, Creatinine 2.46 H, Estim Creat Clear Calc 21.00, Est GFR (MDRD) Af Amer 26 L, Est GFR (MDRD) Non-Af 21 L, BUN/Creatinine Ratio 34.6 H, Glucose 102, Calcium 8.4 L Current Medications Acetaminophen (Tylenol) 650 mg PO Q4H PRN PRN PRN Reason: TEMP > 100.5 F Albuterol Sulfate (Ventolin Aerosols) 2.5 mg INHALATION Q4H PRN PRN PRN Reason: WHEEZING Last Admin: 06/16/19 19:01 Dose: 2.5 mg Documented by: Amiodarone HCl (Cordarone) 400 mg PO DAILY [facility] Last Admin: 06/26/19 08:01 Dose: Not Given Documented by: Chlorhexidine Gluconate () 15 ml PO BID [facility] Last Admin: 06/26/19 08:00 Dose: Not Given Documented by: Chlorhexidine Gluconate () 1 each TOPICAL DAILY [facility] Last Admin: 06/26/19 10:40 Dose: 1 each Documented by: Enoxaparin Sodium (Lovenox) 30 mg SC DAILY [facility] Last Admin: 06/26/19 10:40 Dose: 30 mg Documented by: Famotidine (Pepcid) 20 mg PO DAILY [facility] Last Admin: 06/26/19 08:02 Dose: Not Given Documented by: Glycopyrrolate (Robinul) 1 mg PO BID [facility] Last Admin: 06/26/19 08:02 Dose: Not Given Documented by: Vancomycin IV Pharmacy to Dose (1 ea/ Sodium Chloride) 500 mls @ 250 mls/hr IV PRN PRN; Protocol PRN Reason: Rx to Dose Ceftriaxone Sodium 2 gm/ (Sodium Chloride) 50 mls @ 100 mls/hr IV Q24 [facility] Last Infusion: 06/26/19 11:11 Dose: Infused Documented by: Metronidazole (Flagyl) 500 mg in 100 mls @ 100 mls/hr IV Q8 [facility] Last Admin: 06/26/19 12:44 Dose: 100 mls/hr Documented by: Sodium Chloride () 250 mls @ 15 mls/hr IV .[id number] PRN PRN Reason: Saline Flush Last Infusion: 06/26/19 09:13 Dose: 15 mls/hr Documented by: Sodium Chloride () 250 mls @ 15 mls/hr IV .[id number] PRN PRN Reason: Additional IVPB Infusion Vancomycin HCl () 500 mg in 100 mls @ 100 mls/hr IV X1 ONE Stop: 06/26/19 16:59 Nutritional Formula (Thor - Gilmer Flavor) 1 packet PO BID [facility] Last Admin: 06/26/19 08:01 Dose: Not Given Documented by: Senna/Docusate Sodium (Senokot-S, Laureen-Colace) 2 tablet PO DAILY PRN PRN PRN Reason: CONSTIPATION Sodium Chloride () 10 - 40 ml IV UD PRN PRN Reason: SALINE FLUSH Last Admin: 06/25/19 21:49 Dose: 10 ml Documented by: Zinc Sulfate (Zinc Sulfate) 220 mg PO TID [facility] Last Admin: 06/26/19 06:52 Dose: Not Given Documented by: Medical Necessity - Tobacco Use Smoking Status: Smoker, status unknown Tobacco Use: Non-smoker Route of nutrition/ use of supplements: [] Nutritional Intake: [] IV Site: [] Siddiqi Catheter: [] - Assessment/Plan Antibiotics: [] Assessment/Plan: [] Active and Suspected Problems Severe sepsis (Acute) Acute respiratory failure with hypoxia and hypercapnia (Acute) Bilateral pneumonia (Acute) Infection due to [place] coronavirus (Acute) COVID (+), severe sepsis, acute hypoxic resp failure, decubitus wounds - on vanc/ceftriaxone/flagyl. Wound cx with mrsa, proteus, corynebacteria. QTC in 02/2019 was 540, so avoided plaquenil/azithro. Fever resolved. Cdiff neg. Prior CT showed multiple decubitus abscesses. Sputum still with MRSA. Has been on abx since 06/12. Awake and prone with improvement in oxygenation. Will follow, d/w Dr. Ruth
--- NOTE | 2019-06-26 15:27 | CASEMGMT ---
Social Work Note KAILASH placed a call to pt's daughter Rosaline. SW updated Rosaline that this worker received HCPOA documents from [place] and does have Rosaline listed as HCPOA for pt. SW informed Rosaline that a Kevin Smith is listed as first alternative in the event Rosaline is not able to be reached. Rosaline states that is her uncle Keshawn and he lives in [place] and hasn't been involved in pt's case/decisions and she is making the decisions with her bother Kirit. SW asked Rosaline how she is feeling since her conversation last night with the physician. Pt states that she is upset and wishes her mom would allow the tube to be inserted again if needed. SW informed Rosaline that pt is alert and orientated x3, able to make own decisions, and is still stating that she wouldn't want to be intubated if needed to be. SW spoke with Rosaline about respecting her mother's wishes if it came down to a decision being made. Rosaline appeared ambivalence to respecting her mother's wishes. Rosaline states that she has everything lined up for pt to return home at discharge and got approved for PASSPORT/Waiver program and will be getting aides in the home. Rosaline states again that she plans on taking her mother home at discharge. Rosaline also states that pt is not allergic to prednisone, pt has no physician reaction, pt just has psychiatric reactions. KAILASH updated RN. Yaneth Benitez TIMEKEEPER, EXPEDITER
--- NOTE | 2019-06-26 17:24 | DIALYSIS ---
Tx discontinued early per Dr. Parker. Tolerating tx poorly. Ran 2 hours and 12 minutes on tx. See tx data for more details. UF of 1126ml. Used right IJ catheter. Catheter is positional. Catheter closed with heparin per fill volume. Caps placed. Dressing intact. Report was given to AMAYA Gaytan.
[2019-06-26] MEDS: Vancomycin IV 500 MG/100 ML BAG 100 MG IV (18:32)
[2019-06-27] VITALS (33 sets, daily range): BP systolic 95–157; BP diastolic 45–92; PULSE 75–121; RESP 12–287; TEMP 36.6–37.6; O2SAT 92–98
--- NOTE | 2019-06-27 01:07 | NURSING ---
Daughter called in for updates. Expresses concern for the lack of nutrition pt is receiving at this time. Provided education of ability to tolerate PO intake. Daughter also expresses concern of an abscess in pt's abdomen that has increased in size. States she will fax records from [facility], as previously requested by this facility. Provided fax number to ICU. Daughter would like to be contacted by physician for an update after 12:30pm.
[2019-06-27] MEDS: metroNIDAZOLE 500 MG/100 ML BAG 100 MG IV (05:08)
[2019-06-27 05:54] LABS: Absolute Lymphocyte Count 1.55 X10^3/uL (0.83-4.51); Absolute Neutrophil Count 17.3 X10^3/uL (2.0-7.7); Basophil# 0.05 X10^3/uL; Basophil% 0.2 % (0-1); Eosinophil# 0.05 X10^3/uL; Eosinophils% 0.2 % (0-5); Hematocrit 31.6 % (37-47); Hemoglobin 9.8 g/dL (12.0-15.0); Lymphocyte # 1.55 X10^3/ul (4.0); Lymphocyte % 7.7 % (19-41); Mean Corpuscular Hgb 28.1 pg (27.0-32.0); Mean Corpuscular Volume 90.5 fL (81-99); Mean Platelet Vol. 11.4 fl (6.2-12.0); Monocyte# 0.84 X10^3/uL; Monocyte% 4.2 % (0-10); NRBC Flagged by Analyzer 0 % (0-5); Neutrophil # 17.26 X10^3/uL (2.7-7.7); Neutrophil % 85.7 % (47-70); POSITIVE MORPHOLOGY YES; Platelet Count 167 K/mm3 (150-450); RBC Distribution Width CV 21.2 % (11.6-14.6); RBC Distribution Width SD 54.4 fl (35.1-43.9); Red Blood Count 3.49 M/mm3 (4.2-5.4); White Blood Count 20.2 K/mm3 (4.4-11.0)
[2019-06-27 05:58] LABS: Differential Indicated SCAN CRITERIA MET
[2019-06-27 06:07] LABS: Anion Gap 11 (5-15); BUN 64 mg/dL (7-18); BUN/Creat Ratio 27.1 RATIO (10-20); Calcium,Total 8.5 mg/dL (8.5-10.1); Chloride 104 mmol/L (98-107); Creatinine, Serum 2.36 mg/dL (0.55-1.02); EST Glomerular Filtration Rate 22 mL/min (>60); Est Glom Filt Rate - Afr Amer 27 mL/min (>60); Estimated Creatinine Clearance 21.89 ml/min; Glucose 100 mg/dL (74-106); Potassium 4.2 mmol/L (3.5-5.1); Sodium Level 139 mmol/L (136-145)
[2019-06-27 06:25] LABS: Differential Comment SCANNED
[2019-06-27 06:26] LABS: Anisocytosis RARE; Microcytosis RARE; Polychromasia RARE
[2019-06-27 07:09] LABS: Vancomycin, Random Level 21.5 ug/mL (0.0-15.0)
--- NOTE | 2019-06-27 07:43 | PCM.PN.INT ---
Subjective: Patient did okay overnight. Patient did have some desaturations yesterday evening and was taken out of the prone position. Patient is denying any pain at this time, but does report being short of breath. Patient has been on BiPAP throughout the evening, but oxygenation continues to improve. General: Alert, Cooperative, Disoriented, - - Morbidly obese HEENT: Atraumatic, EOMI, Normocephalic, - - Abrasion noted on the chin Oral: Moist Mucosa, No Gingival or Mucosal Lesions/ Ulcerations Neck: Supple, No JVD, No Nodes, Trachea Midline Lungs: No wheeze, No rales, Diminished, Rhonchi Cardiovascular: Regular rate, Regular Rhythm, Normal S1, Normal S2, No murmurs, No rub noted, No Gallop Abdomen: Bowel Sounds Present, Soft, Non Tender, Distended - Slightly Extremities: No clubbing, No cyanosis, Edema Skin: No rashes, No breakdown Musculoskeletal: No Tenderness to Palpation of Joints or Extremities Lymphatic: No Cervical, Supraclavicular, or Inguinal Adenopathy Neurological: Cranial nerves II-XII grossly intact, Neuro grossly intact, Motor Exam 5/5 strength throughout Psych/Mental Status: Normal Affect, Appropriate Vital Signs Temp Pulse Resp BP Pulse Ox 36.7 C 79 29 H 138/78 H 95 06/27/19 07:00 06/27/19 07:08 06/27/19 07:08 06/27/19 07:00 06/27/19 07:08 Oxygen Flow Rate (L/min) 15 Oxygen Delivery Method Bi-pap Weight: 96.8 kg Body Mass Index (BMI) 39.4 Intake and Output for Last 24 Hours 06/25/19 06/26/19 06/27/19 23:59 23:59 23:59 Intake Total 1027.50 / 1027.50 501.25 / 501.25 100 / 100 Output Total 470 / 570 3065 / 3065 25 / 25 Balance 557.50 / 457.50 -2563.75 / -2563.75 75 / 75 Labs (Last 48 Hours) 06/25/19 06/25/19 06/26/19 06:09 17:26 04:10 WBC RBC Hgb Hct MCV MCH MCHC RDW Std Deviation RDW Coeff of Bassam Plt Count MPV Immature Gran % (Auto) Neut % (Auto) Lymph % (Auto) Graves % (Auto) Eos % (Auto) Baso % (Auto) Absolute Neuts (auto) Absolute Lymphs (auto) Nucleated RBC % Differential Comment Polychromasia Anisocytosis Microcytosis Macrocytosis Stomatocytes Specimen Type ART ART Sample Site R RADIAL R RADIAL pH 7.51 H 7.48 H Bicarbonate Actual 26.3 H 25.6 POC Total CO2 27 27 Base Excess 3 H 2 O2 Saturation 97 89 L O2 % 30 ABG pCO2 33.3 L 34.3 L ABG pO2 77 53 L O2 Delivery Device Vent NRB Mask Liter Flow 15.0 Vent Mode CPAP POC PEEP 5 POC Pressure Suppt 5 Blood Gas Notified Whom ICU MD Blood Gas Notified Time 609 Sodium Potassium Chloride Carbon Dioxide Anion Gap BUN Creatinine Estim Creat Clear Calc Est GFR (MDRD) Af Amer Est GFR (MDRD) Non-Af BUN/Creatinine Ratio Glucose Calcium Random Vancomycin 18.9 H 06/26/19 06/26/19 06/27/19 04:10 04:10 05:45 WBC 17.5 H 20.2 H RBC 3.49 L 3.49 L Hgb 9.6 L 9.8 L Hct 30.9 L 31.6 L MCV 88.5 90.5 MCH 27.5 28.1 MCHC 31.1 L 31.0 L RDW Std Deviation 51.9 H 54.4 H RDW Coeff of Bassam 20.8 H 21.2 H Plt Count 192 167 MPV 11.6 11.4 Immature Gran % (Auto) 2.200 H 2.000 H Neut % (Auto) 86.7 H 85.7 H Lymph % (Auto) 6.7 L 7.7 L Graves % (Auto) 3.9 4.2 Eos % (Auto) 0.3 0.2 Baso % (Auto) 0.2 0.2 Absolute Neuts (auto) 15.2 H 17.3 H Absolute Lymphs (auto) 1.18 1.55 Nucleated RBC % 0 0 Differential Comment SCANNED SCANNED Polychromasia RARE RARE Anisocytosis 1+ RARE Microcytosis RARE RARE Macrocytosis RARE Stomatocytes RARE Specimen Type Sample Site pH Bicarbonate Actual POC Total CO2 Base Excess O2 Saturation O2 % ABG pCO2 ABG pO2 O2 Delivery Device Liter Flow Vent Mode POC PEEP POC Pressure Suppt Blood Gas Notified Whom Blood Gas Notified Time Sodium 136 Potassium 4.6 Chloride 101 Carbon Dioxide 26.0 Anion Gap 9 BUN 85 H Creatinine 2.46 H Estim Creat Clear Calc 21.00 Est GFR (MDRD) Af Amer 26 L Est GFR (MDRD) Non-Af 21 L BUN/Creatinine Ratio 34.6 H Glucose 102 Calcium 8.4 L Random Vancomycin 06/27/19 06/27/19 05:45 06:25 WBC RBC Hgb Hct MCV MCH MCHC RDW Std Deviation RDW Coeff of Bassam Plt Count MPV Immature Gran % (Auto) Neut % (Auto) Lymph % (Auto) Graves % (Auto) Eos % (Auto) Baso % (Auto) Absolute Neuts (auto) Absolute Lymphs (auto) Nucleated RBC % Differential Comment Polychromasia Anisocytosis Microcytosis Macrocytosis Stomatocytes Specimen Type Sample Site pH Bicarbonate Actual POC Total CO2 Base Excess O2 Saturation O2 % ABG pCO2 ABG pO2 O2 Delivery Device Liter Flow Vent Mode POC PEEP POC Pressure Suppt Blood Gas Notified Whom Blood Gas Notified Time Sodium 139 Potassium 4.2 Chloride 104 Carbon Dioxide 24.0 Anion Gap 11 BUN 64 H Creatinine 2.36 H Estim Creat Clear Calc 21.89 Est GFR (MDRD) Af Amer 27 L Est GFR (MDRD) Non-Af 22 L BUN/Creatinine Ratio 27.1 H Glucose 100 Calcium 8.5 Random Vancomycin 21.5 H Medical Necessity - Tobacco Use Smoking Status: Smoker, status unknown Tobacco Use: Non-smoker Assessment/Plan All Active Problems Perirectal abscess (Acute) Severe sepsis (Acute) Acute respiratory failure with hypoxia and hypercapnia (Acute) Bilateral pneumonia (Acute) Infection due to [place] coronavirus (Acute) RECOMMENDATIONS: 1. Prone positioning per protocol as tolerated 2. Aggressive pulmonary toileting and continue Robinul 3. Continue BiPAP therapy. Possible BiPAP breaks during the day pending clinical course 4. Continue hemodialysis per nephrology recommendations. 5. Continue to withhold all sedating medications. 6. Continue appropriate ICU prophylaxis. 7. Wean oxygen as tolerated 8. DNR Comfort Care arrest without intubation IMPRESSIONS: 1. Acute hypoxemic respiratory failure 2/2 ARDS due to COVID-19 infection combined with MRSA Pneumonia Continue current supportive measures with invasive mechanical ventilatory support, employing a lung protective strategy, along with antimicrobials per infectious diseases recommendations. Azithromycin and Plaquenil were avoided due to prolonged QTC at baseline. Patient was extubated on 06/25/2019, but is consistently having increased oxygen demand. Unclear if this is secondary to silent aspiration versus recurrent edema associated with cytokine storm and COVID-19. Patient is responding now to BiPAP. May attempt prone positioning today if necessary. Continue to wean oxygen if tolerated. Possibly wean EPAP through the day. We will continue for now. Patient should have hemodialysis per nephrology. 2. Severe sepsis secondary to COVID-19 Infection and MRSA Pneumonia Continue current supportive measures as noted above. The patient remains hemodynamically stable. Infectious diseases following. Defer antibiotic selection/course to them. 3. Acute kidney injury The patient developed worsening renal insufficiency over the course of her hospitalization. Concern for ATN in the setting of COVID infection. The patient has become progressively uremic, which has left her an encephalopathic state. Nephrology is currently following to assist with hemodialysis needs. 4. Encephalopathy Appears to be resolving with hemodialysis. Concern for toxic metabolic encephalopathy, with underlying worsening uremia contributing. Nephrology is currently following to assist with hemodialysis needs. Continue to withhold all sedating medications. 5. Diabetes mellitus/hypertension/schizoaffective disorder/morbid obesity/multiple decubitus ulcers Complicates care, management, recovery and prognosis. Continue sliding scale insulin coverage. Once patient improves, evaluation by plastic surgery may be necessary. TIME: 32 minutes of critical care time, independent of procedures, was spent addressing the patient's acute hypoxemic respiratory failure, ARDS secondary to coronavirus infection and MRSA pneumonia, severe sepsis, acute kidney injury, encephalopathy, review of all data and collaboration with the care team. (6:45 AM to 7:45 AM) [id number]: [id number] Critical care first hour
--- NOTE | 2019-06-27 08:56 | PN.RENAL_ITS ---
Patient Problems: Active and Suspected Problems Severe sepsis (Acute) Acute respiratory failure with hypoxia and hypercapnia (Acute) Bilateral pneumonia (Acute) Infection due to [facility] coronavirus (Acute) Subjective: did not tolerate all HD yesterday - Physical Exam Vitals/I&O's: Vital Signs Temp Pulse Resp BP Pulse Ox 98.2 F 81 23 H 114/73 94 06/27/19 08:00 06/27/19 08:00 06/27/19 08:00 06/27/19 08:00 06/27/19 08:00 Oxygen Flow Rate (L/min) 15 Oxygen Delivery Method Bi-pap Weight: 96.8 kg Body Mass Index (BMI) 39.4 Intake and Output for Last 24 Hours 06/25/19 06/26/19 06/27/19 23:59 23:59 23:59 Intake Total 1027.50 / 1027.50 501.25 / 501.25 100 / 100 Output Total 470 / 570 3065 / 3065 25 / 25 Balance 557.50 / 457.50 -2563.75 / -2563.75 75 / 75 Laboratory Results 06/27/19 05:45: WBC 20.2 H, RBC 3.49 L, Hgb 9.8 L, Hct 31.6 L, MCV 90.5, MCH 28.1, MCHC 31.0 L, RDW Std Deviation 54.4 H, RDW Coeff of Bassam 21.2 H, Plt Count 167, MPV 11.4, Immature Gran % (Auto) 2.000 H, Neut % (Auto) 85.7 H, Lymph % (Auto) 7.7 L, [place] % (Auto) 4.2, Eos % (Auto) 0.2, Baso % (Auto) 0.2, Absolute Neuts (auto) 17.3 H, Absolute Lymphs (auto) 1.55, Nucleated RBC % 0, Differential Comment SCANNED, Polychromasia RARE, Anisocytosis RARE, Microcytosis RARE 06/27/19 05:45: Sodium 139, Potassium 4.2, Chloride 104, Carbon Dioxide 24.0, Anion Gap 11, BUN 64 H, Creatinine 2.36 H, Estim Creat Clear Calc 21.89, Est GFR (MDRD) Af Amer 27 L, Est GFR (MDRD) Non-Af 22 L, BUN/Creatinine Ratio 27.1 H, Glucose 100, Calcium 8.5 06/27/19 06:25: Random Vancomycin 21.5 H Current Medications Acetaminophen (Tylenol) 650 mg PO Q4H PRN PRN PRN Reason: TEMP > 100.5 F Albuterol Sulfate (Ventolin Aerosols) 2.5 mg INHALATION Q4H PRN PRN PRN Reason: WHEEZING Last Admin: 06/16/19 19:01 Dose: 2.5 mg Documented by: Amiodarone HCl (Cordarone) 400 mg PO DAILY [facility] Last Admin: 06/26/19 08:01 Dose: Not Given Documented by: Chlorhexidine Gluconate () 1 each TOPICAL DAILY [facility] Last Admin: 06/26/19 10:40 Dose: 1 each Documented by: Enoxaparin Sodium (Lovenox) 30 mg SC DAILY [facility] Last Admin: 06/26/19 10:40 Dose: 30 mg Documented by: Famotidine (Pepcid) 20 mg PO DAILY [facility] Last Admin: 06/26/19 08:02 Dose: Not Given Documented by: Glycopyrrolate (Robinul) 1 mg PO BID [facility] Last Admin: 06/26/19 19:52 Dose: Not Given Documented by: Vancomycin IV Pharmacy to Dose (1 ea/ Sodium Chloride) 500 mls @ 250 mls/hr IV PRN PRN; Protocol PRN Reason: Rx to Dose Ceftriaxone Sodium 2 gm/ (Sodium Chloride) 50 mls @ 100 mls/hr IV Q24 [facility] Last Infusion: 06/26/19 11:11 Dose: Infused Documented by: Metronidazole (Flagyl) 500 mg in 100 mls @ 100 mls/hr IV Q8 [facility] Last Infusion: 06/27/19 06:08 Dose: Infused Documented by: Sodium Chloride () 250 mls @ 15 mls/hr IV .[id number] PRN PRN Reason: Saline Flush Last Infusion: 06/26/19 12:39 Dose: Infused Documented by: Sodium Chloride () 250 mls @ 15 mls/hr IV .[id number] PRN PRN Reason: Additional IVPB Infusion Nutritional Formula (Thor - [place] Flavor) 1 packet PO BID [facility] Last Admin: 06/26/19 19:45 Dose: Not Given Documented by: Senna/Docusate Sodium (Senokot-S, Laureen-Colace) 2 tablet PO DAILY PRN PRN PRN Reason: CONSTIPATION Sodium Chloride () 10 - 40 ml IV UD PRN PRN Reason: SALINE FLUSH Last Admin: 06/25/19 21:49 Dose: 10 ml Documented by: Zinc Sulfate (Zinc Sulfate) 220 mg PO TID [facility] Last Admin: 06/27/19 04:03 Dose: Not Given Documented by: Medical Necessity - Tobacco Use Smoking Status: Smoker, status unknown Tobacco Use: Non-smoker Assessment/Plan All Active Problems Perirectal abscess (Acute) Severe sepsis (Acute) Acute respiratory failure with hypoxia and hypercapnia (Acute) Bilateral pneumonia (Acute) Infection due to [place] coronavirus (Acute) ABIGAIL likely ATN and AIN with COVID-19 and vanco toxicity ARDS s/p extubation COVID-19 Decubitus ulcers with abscesses for dialysis likely tomorrow will reevaluate tomorrow if no recovery of renal function will need placement of tunneled dialysis catheter soon when cleared by infectious disease Keep MAP>65 avoid nephrotoxins abx as per ID appreciate urology input for the moderate left-sided hydronephrosis d/w HD RN Due to the current efforts to prevent transmission of COVID?19 and also the need to preserve PPE for other caregivers a [id number] encounter with the patient was not performed. That being said, all relevant records and diagnostic tests were reviewed including laboratory test and imaging. Please reference any relevant documentation elsewhere. Care will be coordinated with the primary service.
--- NOTE | 2019-06-27 09:49 | PN.ID_ITS ---
Patient Problems: Active and Suspected Problems Severe sepsis (Acute) Acute respiratory failure with hypoxia and hypercapnia (Acute) Bilateral pneumonia (Acute) Infection due to [facility] coronavirus (Acute) Subjective: Remains off vent, no fever. - Physical Exam Vitals/I&O's: Vital Signs Temp Pulse Resp BP Pulse Ox 98.4 F 91 21 H 140/68 H 94 06/27/19 09:00 06/27/19 09:00 06/27/19 09:00 06/27/19 09:00 06/27/19 09:00 Oxygen Flow Rate (L/min) 15 Oxygen Delivery Method Bi-pap Weight: 96.8 kg Body Mass Index (BMI) 39.4 Intake and Output for Last 24 Hours 06/25/19 06/26/19 06/27/19 23:59 23:59 23:59 Intake Total 1027.50 / 1027.50 501.25 / 501.25 100 / 100 Output Total 470 / 570 3065 / 3065 25 / 25 Balance 557.50 / 457.50 -2563.75 / -2563.75 75 / 75 General: Alert Lungs: Diminished, Using Accessory Muscles Cardiovascular: Regular rate, Regular Rhythm Abdomen: Soft, Non Tender, Non-Distended Skin: No rashes Laboratory Results 06/27/19 05:45: WBC 20.2 H, RBC 3.49 L, Hgb 9.8 L, Hct 31.6 L, MCV 90.5, MCH 28.1, MCHC 31.0 L, RDW Std Deviation 54.4 H, RDW Coeff of Bassam 21.2 H, Plt Count 167, MPV 11.4, Immature Gran % (Auto) 2.000 H, Neut % (Auto) 85.7 H, Lymph % (Auto) 7.7 L, [place] % (Auto) 4.2, Eos % (Auto) 0.2, Baso % (Auto) 0.2, Absolute Neuts (auto) 17.3 H, Absolute Lymphs (auto) 1.55, Nucleated RBC % 0, Differential Comment SCANNED, Polychromasia RARE, Anisocytosis RARE, Microcytosis RARE 06/27/19 05:45: Sodium 139, Potassium 4.2, Chloride 104, Carbon Dioxide 24.0, Anion Gap 11, BUN 64 H, Creatinine 2.36 H, Estim Creat Clear Calc 21.89, Est GFR (MDRD) Af Amer 27 L, Est GFR (MDRD) Non-Af 22 L, BUN/Creatinine Ratio 27.1 H, Glucose 100, Calcium 8.5 06/27/19 06:25: Random Vancomycin 21.5 H Current Medications Acetaminophen (Tylenol) 650 mg PO Q4H PRN PRN PRN Reason: TEMP > 100.5 F Albuterol Sulfate (Ventolin Aerosols) 2.5 mg INHALATION Q4H PRN PRN PRN Reason: WHEEZING Last Admin: 06/16/19 19:01 Dose: 2.5 mg Documented by: Amiodarone HCl (Cordarone) 400 mg PO DAILY [facility] Last Admin: 06/27/19 09:26 Dose: Not Given Documented by: Chlorhexidine Gluconate () 1 each TOPICAL DAILY [facility] Last Admin: 06/26/19 10:40 Dose: 1 each Documented by: Enoxaparin Sodium (Lovenox) 30 mg SC DAILY [facility] Last Admin: 06/26/19 10:40 Dose: 30 mg Documented by: Famotidine (Pepcid) 20 mg PO DAILY [facility] Last Admin: 06/27/19 09:26 Dose: Not Given Documented by: Glycopyrrolate (Robinul) 1 mg PO BID [facility] Last Admin: 06/27/19 09:26 Dose: Not Given Documented by: Vancomycin IV Pharmacy to Dose (1 ea/ Sodium Chloride) 500 mls @ 250 mls/hr IV PRN PRN; Protocol PRN Reason: Rx to Dose Sodium Chloride () 250 mls @ 15 mls/hr IV .[id number] PRN PRN Reason: Saline Flush Last Infusion: 06/26/19 12:39 Dose: Infused Documented by: Sodium Chloride () 250 mls @ 15 mls/hr IV .[id number] PRN PRN Reason: Additional IVPB Infusion Nutritional Formula (Thor - [place] Flavor) 1 packet PO BID [facility] Last Admin: 06/27/19 09:26 Dose: Not Given Documented by: Senna/Docusate Sodium (Senokot-S, Laureen-Colace) 2 tablet PO DAILY PRN PRN PRN Reason: CONSTIPATION Sodium Chloride () 10 - 40 ml IV UD PRN PRN Reason: SALINE FLUSH Last Admin: 06/25/19 21:49 Dose: 10 ml Documented by: Zinc Sulfate (Zinc Sulfate) 220 mg PO TID [facility] Last Admin: 06/27/19 04:03 Dose: Not Given Documented by: Medical Necessity - Tobacco Use Smoking Status: Smoker, status unknown Tobacco Use: Non-smoker Route of nutrition/ use of supplements: [] Nutritional Intake: [] IV Site: [] Siddiqi Catheter: [] - Assessment/Plan Antibiotics: [] Assessment/Plan: [] Active and Suspected Problems Severe sepsis (Acute) Acute respiratory failure with hypoxia and hypercapnia (Acute) Bilateral pneumonia (Acute) Infection due to [place] coronavirus (Acute) COVID (+), severe sepsis, acute hypoxic resp failure, decubitus wounds - on vanc/ceftriaxone/flagyl. Wound cx with mrsa, proteus, corynebacteria. QTC in 02/2019 was 540, so avoided plaquenil/azithro. Fever resolved. Cdiff neg. Prior CT showed multiple decubitus abscesses. Sputum still with MRSA. Has been on abx since 06/12. Remains off vent on nippv. Wbc up today. Ok for HD catheter placement from ID perspective. Will stop ceftriaxone and flagyl today. Cont vanc. Will follow
--- NOTE | 2019-06-27 09:51 | PCM.RX.CS ---
Consult Pharmacy has been consulted to manage selected antiobiotic: Vancomycin Type of Consult: Follow-up Suspected Infection: Sepsis, Pneumonia Prior Doses of Antibiotics Received/Current Regimen: VANCOMYCIN 500MG X1 06/25 @ 1832 Labs: Sodium 139 mmol/L (136-145) 06/27/19 05:45 Potassium 4.2 mmol/L (3.5-5.1) 06/27/19 05:45 Chloride 104 mmol/L (98-107) 06/27/19 05:45 Carbon Dioxide 24.0 mmol/L (21.0-32.0) 06/27/19 05:45 Anion Gap 11 (5-15) 06/27/19 05:45 BUN 64 mg/dL (7-18) H 06/27/19 05:45 Creatinine 2.36 mg/dL (0.55-1.02) H 06/27/19 05:45 Est GFR (MDRD) Af Amer 27 mL/min (>60) L 06/27/19 05:45 Est GFR (MDRD) Non-Af 22 mL/min (>60) L 06/27/19 05:45 BUN/Creatinine Ratio 27.1 RATIO (10-20) H 06/27/19 05:45 Glucose 100 mg/dL (74-106) 06/27/19 05:45 Vancomycin Trough 47.1 ug/mL (5.0-15.0) H 06/15/19 18:00 Random Vancomycin 21.5 ug/mL (0.0-15.0) H 06/27/19 06:25 Microbiology: Microbiology 06/20/19 07:00 Sputum, Induced/Lukens Gram Stain - Final 06/20/19 07:00 Sputum, Induced/Lukens Respiratory Culture - Final Meth. resistant Staph. aureus 06/13/19 13:15 Blood Culture (Wb) - Left Hand Blood Culture - Final No growth in 5 days. 06/13/19 13:15 Blood Culture (Wb) - Anticubital Right Blood Culture - Final No growth in 5 days. 06/18/19 09:00 Stool C. difficile DNA Amplification - Final 06/13/19 14:47 Urine Catheter - Siddiqi Urine Culture - Final Presumptive C albicans Meth. resistant Staph. aureus Enterococcus faecalis 06/13/19 18:00 Wound - Buttock Gram Stain - Final 06/13/19 18:00 Wound - Buttock Wound Culture - Final Proteus mirabilis Meth. resistant Staph. aureus Corynebacterium amycolatum 06/14/19 12:30 Sputum, Induced/Lukens Gram Stain - Final 06/14/19 12:30 Sputum, Induced/Lukens Respiratory Culture - Final Meth. resistant Staph. aureus 06/13/19 18:00 Wound - Abdominal Gram Stain - Final 06/13/19 18:00 Wound - Abdominal Wound Culture - Final Proteus mirabilis Meth. resistant Staph. aureus Corynebacterium amycolatum Goal Trough: 15-20 mcg/mL Pharmacy Plan for Drug Dosing: Trough came back supratherapeutic at 21.5 mg/dL. Patient will not be having dialysis today so will not give a dose today but will schedule a random level for tomorrow morning in case of HD. Pharmacy Service will continue to monitor and adjust dosing as required. Labs to be done on [date and time ordered]: Random level 06/28/19 @ 0600
--- NOTE | 2019-06-27 10:11 | CASEMGMT ---
Social Work Note SW participated in ICU rounds. Pt remains on Bipap. SW updated staff that pt's daughter Rosaline is still hoping to take pt home at discharge. SW updated staff that this worker did receive HCPOA/LW documents for pt and they are on pt's chart. Rosaline is listed as HCPOA for pt. SW unable to speak with pt regarding HCPOA as pt is still in COVID precautions and pt is on Bipap. Plan is for pt to be respiratory stable and then discuss ID and plastics (Dr. Patel) recommendations for pt. Clinically pt is COVID negative. Plan: TBD. SNF vs Home. Palliative Care may be appropriate for pt once pt is ready for discharge. SW to continue to follow. Yaneth Benitez DIRECTOR APPOINTMENT, PROMOTIONS ASSOCIATE
[2019-06-27] MEDS: CHLORHEXIDINE GLUC 2% CLOTH 1 EACH TOWELETTE TOPICAL (11:05)
[2019-06-27] MEDS: Enoxaparin 30 MG/0.3 ML Syringe SC (12:08)
[2019-06-27] MEDS: Atropine Sulfate 1% 2 ml Bottle 4 DRP PO ×3 (12:08→23:19)
--- NOTE | 2019-06-27 13:24 | CASEMGMT ---
Social Work Note KAILASH placed a call to pt's daughter Rosaline to check in with her. Rosaline states that she is still upset and depressed about her mother's decision. SW offered support to Rosaline. SW educated pt the point of this worker's phone call is to provide support to her and let her know that staff at [facility] is supporting her through this time as well. Rosaline states deep in my heart, I have a feeling that if it comes down to it, mom may decide to be reintubated. SW informed pt that pt could decide that and could change her mind at anytime but reiterated again that at this time, pt is still wanting to not be reintubated if needed. Rosaline states understanding. Rosaline states that about three years ago [facility] tried to get guardianship of pt as they felt Rosaline was not an appropriate caregiver for pt. Rosaline states pt was at a senior living in [place] and that is when the Courts tried to get guardianship for pt. Rosaline states that she was told that if she removed pt from [facility] then they would stop trying to get guardianship for pt and that is what Rosaline did for the patient - she removed pt from [facility]. Rosaline states that is the best thing I ever done for my mom. Rosaline states the guardianship never went through and it was put into contract that [facility] could never investigate pt again for guardianship in [place]. KAILASH informed Rosaline that staff is still stating pt is alert and orientated and able to make own decisions at this time. Rosaline asked if she could bring pt's cell phone to [facility] so pt could have it. KAILASH tried to explain that pt is currently still on Bipap and not able to use her cell phone at this time anyway but that this worker would ask the ICU staff. Rosaline asked if she could bring the cell phone in [facility]. KAILASH informed Rosaline that again this worker is not sure how ICU is handling allowing items to be brought into pt but that this worker would ask ICU staff. Rosaline states that she calls in around 11:30pm at night to get update on pt. KAILASH spoke with pt's RN. RN states Rosaline is able to bring cell phone to the front of the hospital and they can bring it up to pt's room however, [facility] is not responsible for the cell phone, it is not the staff's responsibility to make sure pt is able to answer or respond to pt when Lucila calls/text, [facility] staff will not use PPE just to go into pt's room so Rosaline can call pt on her cell phone, and pt is not able to talk right now or see to text as pt is still on the bipap. KAILASH updated Rosaline of this. Rosaline states she will likely bring cell phone to [facility] tomorrow and asked if she could videochat with pt once she brings pt's cell phone in. SW informed Rosaline that she would need to speak with pt's RN about arranging that. Chasidy states understanding. KAILASH discussed case with Dixon BHAGAT. Since guardianship never went through as Rosaline moved pt out of [facility], HCPOA is still Rosaline. However, pt is still being deemed able to make own decisions. It was suggested that once pt is off Bipap to have either this worker or staff speak with pt about possibly changing her HCPOA as at one point it was suggested through [facility] Courts that Rosaline may have not been an appropriate caregiver for pt. Pt currently still on Bipap, still unable to answer phone call and speak to this worker. SW to continue follow along. Once pt is off Bipap this worker will try to confirm with pt her HCPOA. Yaneth Benitez MANAGEMENT SUPERVISOR, VENDING MECHANIC
--- NOTE | 2019-06-27 13:34 | NURSING ---
Pt alert but seems very withdrawn today . asked patient to squeeze this nurse's hand. very weak squeeze noted bilaterally. patient not able to lift arms independently at this time. patient would benefit from palliative or hospice care, but patient's daughter keeps stating she wants to take patient back home. Feel patient has way too many needs at this time to go home with daughter. will continue to follow for wound care. palliative wound care at this time. If patient's status improves, patient will most likely need surgical debridement. pt has had numerous debridements in the past for hidradenitis.
[2019-06-28] VITALS (40 sets, daily range): BP systolic 100–170; BP diastolic 55–89; PULSE 102–130; RESP 12–37; TEMP -12.7–38.1; O2SAT 76–99
[2019-06-28] MEDS: Atropine Sulfate 1% 2 ml Bottle 4 DRP PO ×3 (04:49→16:45)
[2019-06-28 05:08] LABS: Absolute Lymphocyte Count 1.95 X10^3/uL (0.83-4.51); Basophil# 0.04 X10^3/uL; Basophil% 0.2 % (0-1); Eosinophil# 0.07 X10^3/uL; Eosinophils% 0.4 % (0-5); Hematocrit 32.8 % (37-47); Hemoglobin 9.9 g/dL (12.0-15.0); Lymphocyte # 1.95 X10^3/ul (4.0); Lymphocyte % 12.1 % (19-41); Mean Corp Hgb Conc 30.2 g/dL (32-36); Mean Corpuscular Hgb 27.3 pg (27.0-32.0); Mean Corpuscular Volume 90.6 fL (81-99); Mean Platelet Vol. 11.4 fl (6.2-12.0); Monocyte# 0.81 X10^3/uL; NRBC Flagged by Analyzer 0 % (0-5); Neutrophil # 12.95 X10^3/uL (2.7-7.7); Neutrophil % 80.1 % (47-70); POSITIVE MORPHOLOGY YES; Platelet Count 185 K/mm3 (150-450); RBC Distribution Width CV 22.4 % (11.6-14.6); RBC Distribution Width SD 60.9 fl (35.1-43.9); Red Blood Count 3.62 M/mm3 (4.2-5.4); White Blood Count 16.2 K/mm3 (4.4-11.0)
[2019-06-28 05:09] LABS: Differential Indicated SCAN CRITERIA MET
[2019-06-28 05:20] LABS: Anion Gap 12 (5-15); BUN 85 mg/dL (7-18); BUN/Creat Ratio 25.8 RATIO (10-20); Calcium,Total 8.8 mg/dL (8.5-10.1); Chloride 104 mmol/L (98-107); Creatinine, Serum 3.29 mg/dL (0.55-1.02); EST Glomerular Filtration Rate 15 mL/min (>60); Est Glom Filt Rate - Afr Amer 18 mL/min (>60); Glucose 100 mg/dL (74-106); Magnesium 2.5 mg/dL (1.6-2.6); Phosphorus 7.8 mg/dL (2.5-4.9); Potassium 5.6 mmol/L (3.5-5.1); Sodium Level 140 mmol/L (136-145)
[2019-06-28 05:32] LABS: Anisocytosis 2+; Hypochromasia 1+; Macrocytosis 1+; Platelet Estimate ADEQUATE (ADEQ); Polychromasia RARE; Vancomycin, Random Level 22.4 ug/mL (0.0-15.0)
--- NOTE | 2019-06-28 06:59 | PCM.RX.CS ---
Consult Pharmacy has been consulted to manage selected antiobiotic: Vancomycin Type of Consult: Follow-up Labs: Sodium 140 mmol/L (136-145) 06/28/19 04:55 Potassium 5.6 mmol/L (3.5-5.1) H 06/28/19 04:55 Chloride 104 mmol/L (98-107) 06/28/19 04:55 Carbon Dioxide 24.0 mmol/L (21.0-32.0) 06/28/19 04:55 Anion Gap 12 (5-15) 06/28/19 04:55 BUN 85 mg/dL (7-18) H 06/28/19 04:55 Creatinine 3.29 mg/dL (0.55-1.02) H 06/28/19 04:55 Est GFR (MDRD) Af Amer 18 mL/min (>60) L 06/28/19 04:55 Est GFR (MDRD) Non-Af 15 mL/min (>60) L 06/28/19 04:55 BUN/Creatinine Ratio 25.8 RATIO (10-20) H 06/28/19 04:55 Glucose 100 mg/dL (74-106) 06/28/19 04:55 Vancomycin Trough 47.1 ug/mL (5.0-15.0) H 06/15/19 18:00 Random Vancomycin 22.4 ug/mL (0.0-15.0) H 06/28/19 04:55 Microbiology: Microbiology 06/20/19 07:00 Sputum, Induced/Lukens Gram Stain - Final 06/20/19 07:00 Sputum, Induced/Lukens Respiratory Culture - Final Meth. resistant Staph. aureus 06/13/19 13:15 Blood Culture (Wb) - Left Hand Blood Culture - Final No growth in 5 days. 06/13/19 13:15 Blood Culture (Wb) - Anticubital Right Blood Culture - Final No growth in 5 days. 06/18/19 09:00 Stool C. difficile DNA Amplification - Final 06/13/19 14:47 Urine Catheter - Siddiqi Urine Culture - Final Presumptive C albicans Meth. resistant Staph. aureus Enterococcus faecalis 06/13/19 18:00 Wound - Buttock Gram Stain - Final 06/13/19 18:00 Wound - Buttock Wound Culture - Final Proteus mirabilis Meth. resistant Staph. aureus Corynebacterium amycolatum 06/14/19 12:30 Sputum, Induced/Lukens Gram Stain - Final 06/14/19 12:30 Sputum, Induced/Lukens Respiratory Culture - Final Meth. resistant Staph. aureus 06/13/19 18:00 Wound - Abdominal Gram Stain - Final 06/13/19 18:00 Wound - Abdominal Wound Culture - Final Proteus mirabilis Meth. resistant Staph. aureus Corynebacterium amycolatum Weight used for dosin kg Goal Trough: 15-20 mcg/mL Pharmacy Plan for Drug Dosing: Vanc level > 20 mcg/mL. No dose today. Recheck random level tomorrow in case of dialysis. Pharmacy Service will continue to monitor and adjust dosing as required. Follow-Up Labs: Trough Vancomycin - 06/28 @ 0600
--- NOTE | 2019-06-28 07:57 | PN_ITS ---
Subjective: Patient did okay overnight. Patient's oxygenation status appears to be stabilizing. Patient continues to track, but is not very interactive. Patient did spike a fever overnight. Patient has not been in the supine position for 24 hours. Discussed with nephrology nurse and patient will receive hemodialysis today. General: Alert, No apparent distress, Confused, Disoriented, - - Flat affect. Morbidly obese. HEENT: Atraumatic, PERRLA, EOMI, Normocephalic, - - Chin excoriation is improving Oral: Moist Mucosa, No Gingival or Mucosal Lesions/ Ulcerations Neck: Supple, No JVD, No Nodes, Trachea Midline, - - Lines are clean, dry and intact Lungs: No rhonchi, No wheeze, Diminished, Rales - Right base, - - Symmetric expansion Cardiovascular: Normal S1, Normal S2, No murmurs, No rub noted, No Gallop, Tachycardic Abdomen: Bowel Sounds Present, Soft, Non Tender, Non-Distended, Obese Extremities: No clubbing, No cyanosis, Edema Skin: - - No significant change compared to previous. Chin looks slightly improved compared to previous. Still with areas of fluctuance and skin folds Musculoskeletal: No Tenderness to Palpation of Joints or Extremities Lymphatic: No Cervical, Supraclavicular, or Inguinal Adenopathy Neurological: Cranial nerves II-XII grossly intact, Neuro grossly intact Psych/Mental Status: Flat Affect Vital Signs Temp Pulse Resp BP Pulse Ox 37.9 C H 113 H 27 H 152/81 H 97 06/28/19 06:00 06/28/19 07:36 06/28/19 06:00 06/28/19 06:00 06/28/19 06:00 Oxygen Flow Rate (L/min) 15 Oxygen Delivery Method Bi-pap Weight: 96.6 kg Body Mass Index (BMI) 39.4 Intake and Output for Last 24 Hours 06/26/19 06/27/19 06/28/19 23:59 23:59 23:59 Intake Total 501.25 / 501.25 100 / 100 Output Total 3065 / 3065 90 / 90 45 / 45 Balance -2563.75 / -2563.75 10 / 10 -45 / -45 Labs (Last 48 Hours) 06/27/19 06/27/19 06/27/19 05:45 05:45 06:25 WBC 20.2 H RBC 3.49 L Hgb 9.8 L Hct 31.6 L MCV 90.5 MCH 28.1 MCHC 31.0 L RDW Std Deviation 54.4 H RDW Coeff of Bassam 21.2 H Plt Count 167 MPV 11.4 Immature Gran % (Auto) 2.000 H Neut % (Auto) 85.7 H Lymph % (Auto) 7.7 L [place] % (Auto) 4.2 Eos % (Auto) 0.2 Baso % (Auto) 0.2 Absolute Neuts (auto) 17.3 H Absolute Lymphs (auto) 1.55 Nucleated RBC % 0 Differential Comment SCANNED Platelet Estimate Polychromasia RARE Hypochromasia Anisocytosis RARE Microcytosis RARE Macrocytosis Sodium 139 Potassium 4.2 Chloride 104 Carbon Dioxide 24.0 Anion Gap 11 BUN 64 H Creatinine 2.36 H Estim Creat Clear Calc 21.89 Est GFR (MDRD) Af Amer 27 L Est GFR (MDRD) Non-Af 22 L BUN/Creatinine Ratio 27.1 H Glucose 100 Calcium 8.5 Phosphorus Magnesium Random Vancomycin 21.5 H 06/28/19 06/28/19 06/28/19 04:55 04:55 04:55 WBC 16.2 H RBC 3.62 L Hgb 9.9 L Hct 32.8 L MCV 90.6 MCH 27.3 MCHC 30.2 L RDW Std Deviation 60.9 H RDW Coeff of Bassam 22.4 H Plt Count 185 MPV 11.4 Immature Gran % (Auto) 2.200 H Neut % (Auto) 80.1 H Lymph % (Auto) 12.1 L [place] % (Auto) 5.0 Eos % (Auto) 0.4 Baso % (Auto) 0.2 Absolute Neuts (auto) 13.0 H Absolute Lymphs (auto) 1.95 Nucleated RBC % 0 Differential Comment Platelet Estimate ADEQUATE Polychromasia RARE Hypochromasia 1+ Anisocytosis 2+ Microcytosis Macrocytosis 1+ Sodium 140 Potassium 5.6 H Chloride 104 Carbon Dioxide 24.0 Anion Gap 12 BUN 85 H Creatinine 3.29 H Estim Creat Clear Calc 15.70 Est GFR (MDRD) Af Amer 18 L Est GFR (MDRD) Non-Af 15 L BUN/Creatinine Ratio 25.8 H Glucose 100 Calcium 8.8 Phosphorus 7.8 H Magnesium 2.5 Random Vancomycin 22.4 H Medical Necessity - Tobacco Use Smoking Status: Smoker, status unknown Tobacco Use: Non-smoker Assessment/Plan All Active Problems Perirectal abscess (Acute) Severe sepsis (Acute) Acute respiratory failure with hypoxia and hypercapnia (Acute) Bilateral pneumonia (Acute) Infection due to [place] coronavirus (Acute) RECOMMENDATIONS: 1. Wean BiPAP as tolerated 2. Aggressive pulmonary toileting and continue Robinul 3. BiPAP breaks during the day pending clinical course 4. Continue hemodialysis per nephrology recommendations. 5. Possibly consult plastic surgery if okay with ID given new onset fever 6. Continue appropriate ICU prophylaxis. 7. Wean oxygen as tolerated 8. DNR Comfort Care arrest without intubation IMPRESSIONS: 1. Acute hypoxemic respiratory failure 2/2 ARDS due to COVID-19 infection combined with MRSA Pneumonia Continue current supportive measures with invasive mechanical ventilatory support, employing a lung protective strategy, along with antimicrobials per infectious diseases recommendations. Azithromycin and Plaquenil were avoided due to prolonged QTC at baseline. Patient was extubated on 06/25/2019, but is consistently having increased oxygen demand. Unclear if this is secondary to s ilent aspiration versus recurrent edema associated with cytokine storm and COVID-19. Patient has responded to BiPAP therapy and EPAP has been able to be weaned progressively. Possibly give BiPAP breaks during the day today. May have difficulty with respiratory status if fever continues to progress. 2. Severe sepsis secondary to COVID-19 Infection and MRSA Pneumonia Continue current supportive measures as noted above. The patient remains hemodynamically stable. Infectious diseases following. Defer antibiotic selection/course to them. Patient did spike a fever overnight. Multiple areas of fluctuance appreciated. Patient may require debridement. Patient has been on broad-spectrum antibiotics for several days with continued fluctuance. May need debridement procedure. Would defer to ID. 3. Acute kidney injury The patient developed worsening renal insufficiency over the course of her hospitalization. Concern for ATN in the setting of COVID infection. The patient has become progressively uremic, which has left her an encephalopathic state. Nephrology is currently following to assist with hemodialysis needs. 4. Encephalopathy Appears to be resolving with hemodialysis. Concern for toxic metabolic encephalopathy, with underlying worsening uremia contributing. Nephrology is currently following to assist with hemodialysis needs. Continue to withhold all sedating medications. 5. Diabetes mellitus/hypertension/schizoaffective disorder/morbid obesity/multiple decubitus ulcers Complicates care, management, recovery and prognosis. Continue sliding scale insulin coverage. Once patient improves, evaluation by plastic surgery may be necessary. TIME: 35 minutes of critical care time, independent of procedures, was spent addr essing the patient's acute hypoxemic respiratory failure, ARDS secondary to coronavirus infection and MRSA pneumonia, severe sepsis, acute kidney injury, encephalopathy, review of all data and collaboration with the care team. (5:50 AM to 8 AM) [id number] Critical care first hour
[2019-06-28] MEDS: Heparin 10,000 UNITS/10 ML Vial 3000 UNITS IV (09:19)
--- NOTE | 2019-06-28 09:56 | PN.ID_ITS ---
Patient Problems: Active and Suspected Problems Severe sepsis (Acute) Acute respiratory failure with hypoxia and hypercapnia (Acute) Bilateral pneumonia (Acute) Infection due to [facility] coronavirus (Acute) Subjective: Fever to 100.5 overnight. HD this AM. Less interactive, O2 reqs stable. - Physical Exam Vitals/I&O's: Vital Signs Temp Pulse Resp BP Pulse Ox 100.3 F H 113 H 27 H 152/81 H 97 06/28/19 06:00 06/28/19 07:36 06/28/19 06:00 06/28/19 06:00 06/28/19 06:00 Oxygen Flow Rate (L/min) 15 Oxygen Delivery Method Bi-pap Weight: 96.6 kg Body Mass Index (BMI) 39.4 Intake and Output for Last 24 Hours 06/26/19 06/27/19 06/28/19 23:59 23:59 23:59 Intake Total 501.25 / 501.25 100 / 100 Output Total 3065 / 3065 90 / 90 45 / 45 Balance -2563.75 / -2563.75 10 / 10 -45 / -45 General: No apparent distress, Non-Cooperative Lungs: Diminished Cardiovascular: Regular rate, Regular Rhythm Abdomen: Soft, Non Tender, Non-Distended Skin: No rashes Laboratory Results 06/28/19 04:55: Random Vancomycin 22.4 H 06/28/19 04:55: WBC 16.2 H, RBC 3.62 L, Hgb 9.9 L, Hct 32.8 L, MCV 90.6, MCH 27.3, MCHC 30.2 L, RDW Std Deviation 60.9 H, RDW Coeff of Bassam 22.4 H, Plt Count 185, MPV 11.4, Immature Gran % (Auto) 2.200 H, Neut % (Auto) 80.1 H, Lymph % (Auto) 12.1 L, [place] % (Auto) 5.0, Eos % (Auto) 0.4, Baso % (Auto) 0.2, Absolute Neuts (auto) 13.0 H, Absolute Lymphs (auto) 1.95, Nucleated RBC % 0, Platelet Estimate ADEQUATE, Polychromasia RARE, Hypochromasia 1+, Anisocytosis 2+, Macrocytosis 1+ 06/28/19 04:55: Sodium 140, Potassium 5.6 H, Chloride 104, Carbon Dioxide 24.0, Anion Gap 12, BUN 85 H, Creatinine 3.29 H, Estim Creat Clear Calc 15.70, Est GFR (MDRD) Af Amer 18 L, Est GFR (MDRD) Non-Af 15 L, BUN/Creatinine Ratio 25.8 H, Glucose 100, Calcium 8.8, Phosphorus 7.8 H, Magnesium 2.5 Current Medications Acetaminophen (Tylenol) 650 mg PO Q4H PRN PRN PRN Reason: TEMP > 100.5 F Albuterol Sulfate (Ventolin Aerosols) 2.5 mg INHALATION Q4H PRN PRN PRN Reason: WHEEZING Last Admin: 06/16/19 19:01 Dose: 2.5 mg Documented by: Amiodarone HCl (Cordarone) 400 mg PO DAILY [facility] Last Admin: 06/28/19 09:19 Dose: Not Given Documented by: Atropine Sulfate (Atropisol) 4 drop PO Q6H [facility] Last Admin: 06/28/19 08:04 Dose: 4 drop Documented by: Chlorhexidine Gluconate () 1 each TOPICAL DAILY [facility] Last Admin: 06/27/19 11:05 Dose: 1 each Documented by: Enoxaparin Sodium (Lovenox) 30 mg SC DAILY [facility] Last Admin: 06/27/19 12:08 Dose: 30 mg Documented by: Famotidine (Pepcid) 20 mg PO DAILY [facility] Last Admin: 06/28/19 09:20 Dose: Not Given Documented by: Heparin Sodium (Porcine) () 3,000 units IV X1 [facility] Stop: 06/28/19 16:00 Last Admin: 06/28/19 09:19 Dose: 3,000 units Documented by: Heparin Sodium (Porcine) () 2,600 units IV X1 [facility] Stop: 06/28/19 16:00 Vancomycin IV Pharmacy to Dose (1 ea/ Sodium Chloride) 500 mls @ 250 mls/hr IV PRN PRN; Protocol PRN Reason: Rx to Dose Sodium Chloride () 250 mls @ 15 mls/hr IV .[id number] PRN PRN Reason: Saline Flush Last Infusion: 06/26/19 12:39 Dose: Infused Documented by: Sodium Chloride () 250 mls @ 15 mls/hr IV .[id number] PRN PRN Reason: Additional IVPB Infusion Nutritional Formula (Thor - [place] Flavor) 1 packet PO BID [facility] Last Admin: 06/28/19 09:19 Dose: Not Given Documented by: Senna/Docusate Sodium (Senokot-S, Laureen-Colace) 2 tablet PO DAILY PRN PRN PRN Reason: CONSTIPATION Sodium Chloride () 10 - 40 ml IV UD PRN PRN Reason: SALINE FLUSH Last Admin: 06/25/19 21:49 Dose: 10 ml Documented by: Zinc Sulfate (Zinc Sulfate) 220 mg PO Q8H [facility] Last Admin: 06/28/19 09:20 Dose: Not Given Documented by: Medical Necessity - Tobacco Use Smoking Status: Smoker, status unknown Tobacco Use: Non-smoker Route of nutrition/ use of supplements: [] Nutritional Intake: [] IV Site: [] Siddiqi Catheter: [] - Assessment/Plan Antibiotics: [] Assessment/Plan: [] Active and Suspected Problems Severe sepsis (Acute) Acute respiratory failure with hypoxia and hypercapnia (Acute) Bilateral pneumonia (Acute) Infection due to [facility] coronavirus (Acute) COVID (+), severe sepsis, acute hypoxic resp failure, decubitus wounds - on vanc. Wound cx with mrsa, proteus, corynebacteria. QTC in 02/2019 was 540, so avoided plaquenil/azithro. Fever resolved. Cdiff neg. Prior CT showed multiple decubitus abscesses. Sputum still with MRSA. Has been on abx since 06/12. Remains off vent on nippv. Wbc better today, but fever to 100.5 overnight. Less interactive, O2 reqs stable. Ceftriaxone and flagyl were stopped 06/26. Still on vanc. Will order bcx x2. Last cxr was 06/24, recommend repeating. If she worsens, would add zosyn. Will follow
[2019-06-28] MEDS: CHLORHEXIDINE GLUC 2% CLOTH 1 EACH TOWELETTE TOPICAL (10:44)
[2019-06-28] MEDS: Enoxaparin 30 MG/0.3 ML Syringe SC (10:44)
[2019-06-28] MEDS: 0.9% Saline Lock 10 ML Syringe IV ×2 (10:45→12:21)
--- NOTE | 2019-06-28 11:44 | CASEMGMT ---
Social Work SW participated in interdisciplinary rounds. Pt extubated and on bipap and receiving hemodialysis at this time. SW unable to speak with pt. Will continue to follow. NADINE Gonzalez
--- NOTE | 2019-06-28 12:11 | DIALYSIS ---
HD x 3 hours complete. Tolerated tx fairly well. Ran on 2k bath. UF of 734ml. Used right IJ catheter. Catheter closed with heparin per fill volume. Caps placed. Dressing is intact. Report was given to AMAYA Hull.
[2019-06-28] MEDS: Heparin 10,000 UNITS/10 ML Vial 2600 UNITS IV (12:23)
--- NOTE | 2019-06-28 13:44 | PN.RENAL_ITS ---
Patient Problems: Active and Suspected Problems Severe sepsis (Acute) Acute respiratory failure with hypoxia and hypercapnia (Acute) Bilateral pneumonia (Acute) Infection due to [place] coronavirus (Acute) Subjective: Following for ABIGAIL. Pt is on BiPAP. Cannot do ROS. D/w plant senior manager and MOHS SURGEON/GENERAL DERMATOLOGIST. - Physical Exam Vitals/I&O's: Vital Signs Temp Pulse Resp BP Pulse Ox 99.2 F H 110 H 24 H 134/84 H 97 06/28/19 13:00 06/28/19 13:00 06/28/19 13:00 06/28/19 13:00 06/28/19 13:00 Oxygen Flow Rate (L/min) 15 Oxygen Delivery Method Bi-pap Weight: 96.6 kg Body Mass Index (BMI) 39.4 Intake and Output for Last 24 Hours 06/26/19 06/27/19 06/28/19 23:59 23:59 23:59 Intake Total 501.25 / 501.25 100 / 100 178.1 / 178.1 Output Total 3065 / 3065 90 / 90 814 / 814 Balance -2563.75 / -2563.75 -635.9 / -635.9 General: No apparent distress HEENT: Atraumatic, Normocephalic Oral: - - on BiPAP Lungs: Rhonchi Cardiovascular: Regular Rhythm - on telemetry, Tachycardic Extremities: No edema Laboratory Results 06/28/19 04:55: Random Vancomycin 22.4 H 06/28/19 04:55: WBC 16.2 H, RBC 3.62 L, Hgb 9.9 L, Hct 32.8 L, MCV 90.6, MCH 27.3, MCHC 30.2 L, RDW Std Deviation 60.9 H, RDW Coeff of Bassam 22.4 H, Plt Count 185, MPV 11.4, Immature Gran % (Auto) 2.200 H, Neut % (Auto) 80.1 H, Lymph % (Auto) 12.1 L, [place] % (Auto) 5.0, Eos % (Auto) 0.4, Baso % (Auto) 0.2, Absolute Neuts (auto) 13.0 H, Absolute Lymphs (auto) 1.95, Nucleated RBC % 0, Platelet Estimate ADEQUATE, Polychromasia RARE, Hypochromasia 1+, Anisocytosis 2+, Macrocytosis 1+ 06/28/19 04:55: Sodium 140, Potassium 5.6 H, Chloride 104, Carbon Dioxide 24.0, Anion Gap 12, BUN 85 H, Creatinine 3.29 H, Estim Creat Clear Calc 15.70, Est GFR (MDRD) Af Amer 18 L, Est GFR (MDRD) Non-Af 15 L, BUN/Creatinine Ratio 25.8 H, Glucose 100, Calcium 8.8, Phosphorus 7.8 H, Magnesium 2.5 Current Medications Acetaminophen (Tylenol) 650 mg PO Q4H PRN PRN PRN Reason: TEMP > 100.5 F Albuterol Sulfate (Ventolin Aerosols) 2.5 mg INHALATION Q4H PRN PRN PRN Reason: WHEEZING Last Admin: 06/16/19 19:01 Dose: 2.5 mg Documented by: Amiodarone HCl (Cordarone) 400 mg PO DAILY [facility] Last Admin: 06/28/19 09:19 Dose: Not Given Documented by: Atropine Sulfate (Atropisol) 4 drop PO Q6H [facility] Last Admin: 06/28/19 08:04 Dose: 4 drop Documented by: Chlorhexidine Gluconate () 1 each TOPICAL DAILY [facility] Last Admin: 06/28/19 10:44 Dose: 1 each Documented by: Enoxaparin Sodium (Lovenox) 30 mg SC DAILY [facility] Last Admin: 06/28/19 10:44 Dose: 30 mg Documented by: Famotidine (Pepcid) 20 mg PO DAILY [facility] Last Admin: 06/28/19 09:20 Dose: Not Given Documented by: Heparin Sodium (Porcine) () 3,000 units IV X1 [facility] Stop: 06/28/19 16:00 Last Admin: 06/28/19 09:19 Dose: 3,000 units Documented by: Heparin Sodium (Porcine) () 2,600 units IV X1 [facility] Stop: 06/28/19 16:00 Last Admin: 06/28/19 12:23 Dose: 2,600 units Documented by: Vancomycin IV Pharmacy to Dose (1 ea/ Sodium Chloride) 500 mls @ 250 mls/hr IV PRN PRN; Protocol PRN Reason: Rx to Dose Sodium Chloride () 250 mls @ 15 mls/hr IV .[id number] PRN PRN Reason: Saline Flush Last Infusion: 06/28/19 12:39 Dose: 0 mls/hr Documented by: Sodium Chloride () 250 mls @ 15 mls/hr IV .[id number] PRN PRN Reason: Additional IVPB Infusion Amiodarone HCl 300 mg/ (Dextrose) 106 mls @ 618 mls/hr IV BOLUS Q24 [facility] Last Infusion: 06/28/19 12:32 Dose: Infused Documented by: Nutritional Formula (Thor - [place] Flavor) 1 packet PO BID [facility] Last Admin: 06/28/19 09:19 Dose: Not Given Documented by: Senna/Docusate Sodium (Senokot-S, Laureen-Colace) 2 tablet PO DAILY PRN PRN PRN Reason: CONSTIPATION Sodium Chloride () 10 - 40 ml IV UD PRN PRN Reason: SALINE FLUSH Last Admin: 06/28/19 12:21 Dose: 10 ml Documented by: Zinc Sulfate (Zinc Sulfate) 220 mg PO Q8H [facility] Last Admin: 06/28/19 09:20 Dose: Not Given Documented by: Medical Necessity - Tobacco Use Smoking Status: Smoker, status unknown Tobacco Use: Non-smoker Assessment/Plan All Active Problems Perirectal abscess (Acute) Severe sepsis (Acute) Acute respiratory failure with hypoxia and hypercapnia (Acute) Bilateral pneumonia (Acute) Infection due to [facility] coronavirus (Acute) 1. Acute kidney injury. Baseline SCr is normal. SCr was 0.92 mg/dL on 06/14/19. ABIGAIL is due to ATN related to sepsis. She is oliguric and is dialysis dependent. Had some issue with dialysis (with low BP) on 06/26/19. Only tolerated 2 hrs of HD on 06/26/19. The pt tolerated dialysis better today. Was able to remove 734 mL because she became more hypotensive and tachycardic towards the end of HD. Will reassess again tomorrow. 2. Hyperkalemia. secondary to #1. Used 2K dialysate today. Recheck K in am. 3. Hyperphosphatemia. secondary to #1. Recheck phos in am. IHD does not efficiently remove phos, so if she is started on tube feed, I will start phos binder as well. 4. Acute hypoxic respiratory failure. Pt has COVID related pneumonia/ARDS. Supportive care as directed by leather goods sales representative. Antimicrobial as per ID. O>I with dialysis.
--- NOTE | 2019-06-28 13:45 | NURSING ---
In to so dressing changed. pt had dialysis this am. pt remains on Bipap. less responsive today. Pt did not open eyes for this nurse and would not attempt to squeeze hand today. there was some mild malodor noted with dressing change today. pt not likely a candidate for surgical intervention anytime soon. Pt has has numerous surgeries for hidradenitis in the past. pt also with pressure injuries as well. will continue to monitor.
--- NOTE | 2019-06-28 16:45 | RAD_ITS ---
STUDY: X-RAY - ABDOMEN/PELVIS REASON FOR EXAM: Female, 59 years old. NG tube placement TECHNIQUE: Single AP view of the abdomen / pelvis. COMPARISON: None. FINDINGS: NG tube tip in the proximal stomach. EKG leads overlie the lower chest and upper abdomen. Lung bases show diffuse airspace opacification in the lung bases. There is an unremarkable bowel gas pattern. There is no demonstrated free abdominal air. The visualized liver, spleen and kidneys are grossly normal in size and morphology. Normal soft tissue structures. There are diffuse degenerative changes of the visualized lumbar spine. RAD/Abdomen Single View (Portable) IMPRESSION: NG tube tip in the body of the stomach Electronically Signed: Miguel Bradley MD at 17:31 EDT , Service support ,
[2019-06-28] MEDS: Vital AF 1.2 Cal Liquid 1,000 ML 20 ML GT (17:49)
--- NOTE | 2019-06-28 20:30 | RAD_ITS ---
STUDY: X-RAY CHEST REASON FOR EXAM: Female, 59 years old. low oxygen, short of breath TECHNIQUE: AP portable COMPARISON: June 28, 2019 FINDINGS: Mild diffuse interstitial thickening in the right lung. There is diffuse opacification left hemithorax consistent with diffuse airspace disease. Cannot definitively exclude coexisting pleural effusion. Heart is enlarged. Normal mediastinum and fernanda. Normal visualized pulmonary arteries. Normal visualized aortic arch and descending thoracic aorta. Central line noted on the right with tip in distal superior vena cava Normal visualized thoracic spine. Normal visualized ribs, clavicles, and shoulders. Nasogastric tube is present with tip in the stomach. There is no demonstrated abnormality of the visualized soft tissue structures of the upper abdomen. There is mildly improved aeration of the right lung since prior study however there is worsening opacification of the left RAD/Chest 1 View (Portable) IMPRESSION: Increasing opacification left hemithorax due to combination of lung disease and possible small effusion. Persistent diffuse interstitial thickening in the right lung with slightly improved aeration since previous study Electronically Signed: Shelton Dubose MD at 20:43 EDT , Service support ,
--- NOTE | 2019-06-28 22:26 | CPS ---
Pt increased to FIO2 100% at this time d/t SpO2 77% with increase to 80%. Pt NT sx with no improvement in oxygenation, electrical lineman consulted.
--- NOTE | 2019-06-28 22:31 | CPS ---
Pneumatic percussion performed on all left lung regions at this time. Pt rotated to right side to improve oxygenation. Nasal tracheal sx also performed at this time.
[2019-06-28 23:26] LABS: Blood Gas Specimen Type ART
[2019-06-28 23:27] LABS: Allen Test POS; FI02 100; O2 Delivery Device Bi Pap; SITE R RADIAL
[2019-06-28 23:28] LABS: Base Excess 3 mmol/L (-2 to +2); Bicarbonate 27.7 mmol/L (22-26); EPAP 16; IPAP 22; PO2 43 mmHG (75-100); Time Given 2023; pCO2 44.9 mmHg (35-45)
[2019-06-28 23:29] LABS: SO2 78 % (95-99); Total Carbon Dioxide 29 mmol/L
[2019-06-28 23:31] LABS: RR 12
[2019-06-29] VITALS (37 sets, daily range): BP systolic 93–146; BP diastolic 56–95; PULSE 94–121; RESP 12–40; TEMP 37.2–37.8; O2SAT 88–100
[2019-06-29 05:13] LABS: Absolute Lymphocyte Count 1.94 X10^3/uL (0.83-4.51); Absolute Neutrophil Count 14.4 X10^3/uL (2.0-7.7); Basophil# 0.04 X10^3/uL; Basophil% 0.2 % (0-1); Eosinophil# 0.03 X10^3/uL; Eosinophils% 0.2 % (0-5); Hematocrit 35.1 % (37-47); Hemoglobin 10.6 g/dL (12.0-15.0); Lymphocyte # 1.94 X10^3/ul (4.0); Lymphocyte % 11.1 % (19-41); Mean Corp Hgb Conc 30.2 g/dL (32-36); Mean Corpuscular Volume 92.9 fL (81-99); Mean Platelet Vol. 11.5 fl (6.2-12.0); Monocyte% 4.6 % (0-10); NRBC Flagged by Analyzer 0 % (0-5); Neutrophil # 14.37 X10^3/uL (2.7-7.7); POSITIVE MORPHOLOGY YES; Platelet Count 183 K/mm3 (150-450); RBC Distribution Width CV 22.1 % (11.6-14.6); RBC Distribution Width SD 68.1 fl (35.1-43.9); Red Blood Count 3.78 M/mm3 (4.2-5.4); White Blood Count 17.5 K/mm3 (4.4-11.0)
[2019-06-29 05:20] LABS: Differential Indicated SCAN CRITERIA MET
[2019-06-29 05:29] LABS: Albumin, Serum 2.2 g/dL (3.2-5.0); BUN 56 mg/dL (7-18); BUN/Creat Ratio 20.4 RATIO (10-20); Calcium,Total 8.9 mg/dL (8.5-10.1); Chloride 102 mmol/L (98-107); Creatinine, Serum 2.75 mg/dL (0.55-1.02); EST Glomerular Filtration Rate 19 mL/min (>60); Est Glom Filt Rate - Afr Amer 23 mL/min (>60); Estimated Creatinine Clearance 18.79 ml/min; Glucose 113 mg/dL (74-106); Phosphorus 7.7 mg/dL (2.5-4.9); Potassium 4.3 mmol/L (3.5-5.1); Sodium Level 142 mmol/L (136-145)
[2019-06-29 05:50] LABS: Anisocytosis 1+; Hypochromasia 1+; Platelet Estimate ADEQUATE (ADEQ)
--- NOTE | 2019-06-29 05:50 | RAD_ITS ---
STUDY: X-RAY CHEST REASON FOR EXAM: Female, 59 years old. respiratory failure TECHNIQUE: Single AP portable view of the chest. COMPARISON: 06/28/2019. FINDINGS: There is a right IJ central line with the tip in the mid-distal SVC. The nasogastric tube is seen in place with the tip below the diaphragm but not included in the [id number]. The lungs are normally expanded with bilateral subtle interstitial and groundglass opacities scattered bilaterally some in the peripheral distribution and compatible with nonspecific diffuse pneumonitis. There has been reduction in the airspace opacity on the left with minimal left-sided pleural effusion seen. Evidence of volume loss on the left with possible left lower lobe atelectasis or partial collapse. There is borderline cardiomegaly. Normal mediastinum and fernanda. There is atherosclerotic calcification of the aortic arch with tortuosity. There are diffuse degenerative changes of the visualized thoracic spine. There is degenerative osteoarthritis of the bilateral shoulders. Nonspecific distention of the stomach. RAD/Chest 1 View (Portable) IMPRESSION: Bilateral pneumonitis as described. Minimal left-sided pleural effusion. Lines and tubes as described. Electronically Signed: Eileen Morris MD at 0:56 EDT , Service support ,
[2019-06-29 06:04] LABS: Vancomycin, Random Level 17.5 ug/mL (0.0-15.0)
--- NOTE | 2019-06-29 07:47 | PN_ITS ---
Subjective: Patient was significant complications overnight. Patient had acute desaturation and chest x-ray showed left mainstem occlusion. Patient has been on a hand-held percussor and NT suction overnight with right decubitus position. FiO2 and EPAP were increased significantly overnight to compensate. Patient opens her eyes, but is not as interactive today. Patient did have hemodialysis yesterday, but did have difficulty tolerating it. General: Alert, Confused, Disoriented, Non-Cooperative, - - Obese. Appears older than stated age. HEENT: Atraumatic, PERRLA, EOMI, Normocephalic, - - Chin excoriation/abrasion is healing well. Oral: No Gingival or Mucosal Lesions/ Ulcerations, Dry Mucosa Neck: Supple, No JVD, No Nodes, Trachea Midline, - - Lines are clean, dry and intact Lungs: No rhonchi, No wheeze, No rales, Diminished - Left base Cardiovascular: Normal S1, Normal S2, No murmurs, No rub noted, No Gallop, Tachycardic Abdomen: Bowel Sounds Present, Soft, Non Tender, Non-Distended, Obese Extremities: No cyanosis, Capillary Refill Less than 3 Seconds, Edema Skin: - - No significant change compared to previous, except chin continues to heal Musculoskeletal: No Tenderness to Palpation of Joints or Extremities Lymphatic: No Cervical, Supraclavicular, or Inguinal Adenopathy Neurological: - - Not very cooperative with exam. Sensation is intact. Some spontaneous movement noted Psych/Mental Status: Flat Affect Vital Signs Temp Pulse Resp BP Pulse Ox 37.8 C H 105 H 27 H 95/70 92 06/29/19 07:00 06/29/19 07:00 06/29/19 07:00 06/29/19 07:00 06/29/19 07:00 Oxygen Flow Rate (L/min) 6 Oxygen Delivery Method Bi-pap Weight: 94 kg Body Mass Index (BMI) 39.4 Intake and Output for Last 24 Hours 06/27/19 06/28/19 06/29/19 23:59 23:59 23:59 Intake Total 100 / 100 178.1 / 178.1 Output Total 90 / 90 829 / 829 Balance -650.9 / -650.9 -11 -11 Labs (Last 48 Hours) 06/28/19 06/28/19 06/28/19 04:55 04:55 04:55 WBC 16.2 H RBC 3.62 L Hgb 9.9 L Hct 32.8 L MCV 90.6 MCH 27.3 MCHC 30.2 L RDW Std Deviation 60.9 H RDW Coeff of Bassam 22.4 H Plt Count 185 MPV 11.4 Immature Gran % (Auto) 2.200 H Neut % (Auto) 80.1 H Lymph % (Auto) 12.1 L Grainger % (Auto) 5.0 Eos % (Auto) 0.4 Baso % (Auto) 0.2 Absolute Neuts (auto) 13.0 H Absolute Lymphs (auto) 1.95 Nucleated RBC % 0 Platelet Estimate ADEQUATE Polychromasia RARE Hypochromasia 1+ Anisocytosis 2+ Macrocytosis 1+ Specimen Type Sample Site pH Bicarbonate Actual POC Total CO2 Base Excess O2 Saturation O2 % ABG pCO2 ABG pO2 Justo Test Respiration Rate O2 Delivery Device EPAP IPAP Blood Gas Notified Whom Blood Gas Notified Time Sodium 140 Potassium 5.6 H Chloride 104 Carbon Dioxide 24.0 Anion Gap 12 BUN 85 H Creatinine 3.29 H Estim Creat Clear Calc 15.70 Est GFR (MDRD) Af Amer 18 L Est GFR (MDRD) Non-Af 15 L BUN/Creatinine Ratio 25.8 H Glucose 100 Calcium 8.8 Phosphorus 7.8 H Magnesium 2.5 Albumin Random Vancomycin 22.4 H 06/28/19 06/29/19 06/29/19 20:19 04:45 04:45 WBC RBC Hgb Hct MCV MCH MCHC RDW Std Deviation RDW Coeff of Bassam Plt Count MPV Immature Gran % (Auto) Neut % (Auto) Lymph % (Auto) Grainger % (Auto) Eos % (Auto) Baso % (Auto) Absolute Neuts (auto) Absolute Lymphs (auto) Nucleated RBC % Platelet Estimate Polychromasia Hypochromasia Anisocytosis Macrocytosis Specimen Type ART Sample Site R RADIAL pH 7.40 Bicarbonate Actual 27.7 H POC Total CO2 29 Base Excess 3 H O2 Saturation 78 L O2 % 100 ABG pCO2 44.9 ABG pO2 43 L Justo Test POS Respiration Rate 12 O2 Delivery Device Bi Pap EPAP 16 IPAP 22 Blood Gas Notified Whom ICU Blood Gas Notified Time 2022 Sodium 142 Potassium 4.3 Chloride 102 Carbon Dioxide 27.0 Anion Gap BUN 56 H Creatinine 2.75 H Estim Creat Clear Calc 18.79 Est GFR (MDRD) Af Amer 23 L Est GFR (MDRD) Non-Af 19 L BUN/Creatinine Ratio 20.4 H Glucose 113 H Calcium 8.9 Phosphorus 7.7 H Magnesium Albumin 2.2 L Random Vancomycin 17.5 H 06/29/19 04:45 WBC 17.5 H RBC 3.78 L Hgb 10.6 L Hct 35.1 L MCV 92.9 MCH 28.0 MCHC 30.2 L RDW Std Deviation 68.1 H RDW Coeff of Bassam 22.1 H Plt Count 183 MPV 11.5 Immature Gran % (Auto) 1.900 H Neut % (Auto) 82.0 H Lymph % (Auto) 11.1 L Grainger % (Auto) 4.6 Eos % (Auto) 0.2 Baso % (Auto) 0.2 Absolute Neuts (auto) 14.4 H Absolute Lymphs (auto) 1.94 Nucleated RBC % 0 Platelet Estimate ADEQUATE Polychromasia Hypochromasia 1+ Anisocytosis 1+ Macrocytosis Specimen Type Sample Site pH Bicarbonate Actual POC Total CO2 Base Excess O2 Saturation O2 % ABG pCO2 ABG pO2 Justo Test Respiration Rate O2 Delivery Device EPAP IPAP Blood Gas Notified Whom Blood Gas Notified Time Sodium Potassium Chloride Carbon Dioxide Anion Gap BUN Creatinine Estim Creat Clear Calc Est GFR (MDRD) Af Amer Est GFR (MDRD) Non-Af BUN/Creatinine Ratio Glucose Calcium Phosphorus Magnesium Albumin Random Vancomycin Clinical Impression(s) from Imaging Studies KUB X-Ray 06/28/19 16:45 IMPRESSION: NG tube tip in the body of the stomach Electronically Signed: Miguel Bradley MD at 17:31 EDT , Service support , Chest X-Ray 06/28/19 20:30 IMPRESSION: Increasing opacification left hemithorax due to combination of lung disease and possible small effusion. Persistent diffuse interstitial thickening in the right lung with slightly improved aeration since previous study Electronically Signed: Shelton Dubose MD at 20:43 EDT , Service support , Medical Necessity - Tobacco Use Smoking Status: Smoker, status unknown Tobacco Use: Non-smoker Assessment/Plan All Active Problems Perirectal abscess (Acute) Severe sepsis (Acute) Acute respiratory failure with hypoxia and hypercapnia (Acute) Bilateral pneumonia (Acute) Infection due to [place] coronavirus (Acute) RECOMMENDATIONS: 1. Wean BiPAP as tolerated once FiO2 at 40% 2. Aggressive pulmonary toileting and decrease atropine 3. BiPAP breaks during the day pending clinical course 4. Continue hemodialysis per nephrology recommendations. 5. Possibly consult plastic surgery if okay with ID given new onset fever 6. Continue appropriate ICU prophylaxis. 7. Wean oxygen as tolerated 8. DNR Comfort Care arrest without intubation IMPRESSIONS: 1. Acute hypoxemic respiratory failure 2/2 ARDS due to COVID-19 infection combined with MRSA Pneumonia Continue current supportive measures with invasive mechanical ventilatory support, employing a lung protective strategy, along with antimicrobials per infectious diseases recommendations. Azithromycin and Plaquenil were avoided due to prolonged QTC at baseline. Patient was extubated on 06/25/2019, but is consistently having increased oxygen demand. Patient was significant mucous plug overnight. Will slowdown atropine. Good response to pulmonary toileting with NT suctioning and manual manipulation. Continue to wean oxygen as tolerated. Once at 40%, can attempt to wean IPAP and EPAP by 2 cm irregular intervals. 2. Severe sepsis secondary to COVID-19 Infection and MRSA Pneumonia Continue current supportive measures as noted above. The patient remains hemodynamically stable. Infectious diseases following. Defer antibiotic selection/course to them. No fever was noted overnight. Patient did have repeat blood cultures ordered. 3. Acute kidney injury progressing to acute renal failure The patient developed worsening renal insufficiency over the course of her hospitalization. Concern for ATN in the setting of COVID infection. The patient has become progressively uremic, which has left her an encephalopathic state. Nephrology is currently following to assist with hemodialysis needs. Patient appears to be dialysis dependent at this time 4. Encephalopathy Appears to be resolving with hemodialysis. Concern for toxic metabolic encephalopathy, with underlying worsening uremia contributing. Nephrology is currently following to assist with hemodialysis needs. Continue to withhold all sedating medications. 5. Diabetes mellitus/hypertension/schizoaffective disorder/morbid obesity/multiple decubitus ulcers Complicates care, management, recovery and prognosis. Continue sliding scale insulin coverage. Once patient improves, evaluation by plastic surgery may be necessary. TIME: 33 minutes of critical care time, independent of procedures, was spent addressing the patient's acute hypoxemic respiratory failure, ARDS secondary to coronavirus infection and MRSA pneumonia, severe sepsis, acute kidney injury, encephalopathy, review of all data and collaboration with the care team. (5:50 AM to 7:30 AM) [id number]: [id number] Critical care first hour
[2019-06-29] MEDS: Atropine Sulfate 1% 2 ml Bottle 4 DRP PO ×2 (09:15→22:36)
[2019-06-29] MEDS: Enoxaparin 30 MG/0.3 ML Syringe SC (09:16)
[2019-06-29] MEDS: Amiodarone 200 MG Tablet 400 MG GT (09:16)
[2019-06-29] MEDS: Famotidine 20 MG Tablet GT (09:17)
[2019-06-29] MEDS: Vital AF 1.2 Cal Liquid 1,000 ML 20 ML GT (09:25)
[2019-06-29] MEDS: CHLORHEXIDINE GLUC 2% CLOTH 1 EACH TOWELETTE TOPICAL (10:32)
--- NOTE | 2019-06-29 11:43 | CPS ---
Increased FiO2 to 100% due to pt desatting into mid 80s. Pt recovered and weaned back down to 80% FiO2.
--- NOTE | 2019-06-29 13:39 | CPS ---
Placed 32F nasal trumpet in left nare due to constant nasotracheal suctioning.
--- NOTE | 2019-06-29 19:43 | PCM.PN.REN ---
Patient Problems: Active and Suspected Problems Severe sepsis (Acute) Acute respiratory failure with hypoxia and hypercapnia (Acute) Bilateral pneumonia (Acute) Infection due to [facility] coronavirus (Acute) Subjective: Following for ABIGAIL. Pt is still oliguric. Confused per RN. Still NIV dependent. Not on pressor. - Physical Exam Vitals/I&O's: Vital Signs Temp Pulse Resp BP Pulse Ox 99.2 F H 94 34 H 107/68 98 06/29/19 19:00 06/29/19 19:23 06/29/19 19:20 06/29/19 19:00 06/29/19 19:20 Oxygen Flow Rate (L/min) 6 Oxygen Delivery Method Bi-pap Weight: 94 kg Body Mass Index (BMI) 39.4 Intake and Output for Last 24 Hours 06/27/19 06/28/19 06/29/19 23:59 23:59 23:59 Intake Total 100 / 100 178.1 / 178.1 Output Total 90 / 90 829 / 829 66 / 66 Balance 10 / -650.9 / -650.9 -66 / -66 General: Confused HEENT: - - on BiPAP Cardiovascular: Tachycardic, - - Exam limited by COVID isolation and need to conserve PPE. Extremities: Edema Laboratory Results 06/28/19 20:19: Specimen Type ART, Sample Site R RADIAL, pH 7.40, Bicarbonate Actual 27.7 H, POC Total CO2 29, Base Excess 3 H, O2 Saturation 78 L, O2 % 100, ABG pCO2 44.9, ABG pO2 43 L, Justo Test POS, Respiration Rate 12, O2 Delivery Device Bi Pap, EPAP 16, IPAP 22, Blood Gas Notified Whom ICU , Blood Gas Notified Time 202206/29/19 04:45: Random Vancomycin 17.5 H 06/29/19 04:45: Sodium 142, Potassium 4.3, Chloride 102, Carbon Dioxide 27.0, BUN 56 H, Creatinine 2.75 H, Estim Creat Clear Calc 18.79, Est GFR (MDRD) Af Amer 23 L, Est GFR (MDRD) Non-Af 19 L, BUN/Creatinine Ratio 20.4 H, Glucose 113 H, Calcium 8.9, Phosphorus 7.7 H, Albumin 2.2 L 06/29/19 04:45: WBC 17.5 H, RBC 3.78 L, Hgb 10.6 L, Hct 35.1 L, MCV 92.9, MCH 28.0, MCHC 30.2 L, RDW Std Deviation 68.1 H, RDW Coeff of Bassam 22.1 H, Plt Count 183, MPV 11.5, Immature Gran % (Auto) 1.900 H, Neut % (Auto) 82.0 H, Lymph % (Auto) 11.1 L, Bowman % (Auto) 4.6, Eos % (Auto) 0.2, Baso % (Auto) 0.2, Absolute Neuts (auto) 14.4 H, Absolute Lymphs (auto) 1.94, Nucleated RBC % 0, Platelet Estimate ADEQUATE, Hypochromasia 1+, Anisocytosis 1+ Current Medications Acetaminophen (Tylenol Liquid) 650 mg GT Q4H PRN PRN PRN Reason: TEMP > 100.5 F Albuterol Sulfate (Ventolin Aerosols) 2.5 mg INHALATION Q4H PRN PRN PRN Reason: WHEEZING Last Admin: 06/16/19 19:01 Dose: 2.5 mg Documented by: Amiodarone HCl (Cordarone) 400 mg GT DAILY COUNTS INCLUDE 234 BEDS AT THE [facility] Last Admin: 06/29/19 09:16 Dose: 400 mg Documented by: Atropine Sulfate (Atropisol) 4 drop PO Q8H COUNTS INCLUDE 234 BEDS AT THE [facility] Last Admin: 06/29/19 17:16 Dose: Not Given Documented by: Chlorhexidine Gluconate () 1 each TOPICAL DAILY COUNTS INCLUDE 234 BEDS AT THE [facility] Last Admin: 06/29/19 10:32 Dose: 1 each Documented by: Zinc Sulfate 220 mg/ Vela Syrup 2.5 ml/ Sterile Water 2. 5 ml 0 mg NG Q8H COUNTS INCLUDE 234 BEDS AT THE [facility] Last Admin: 06/29/19 09:18 Dose: 5 oral.susp Documented by: Enoxaparin Sodium (Lovenox) 30 mg SC DAILY COUNTS INCLUDE 234 BEDS AT THE [facility] Last Admin: 06/29/19 09:16 Dose: 30 mg Documented by: Famotidine (Pepcid) 20 mg GT DAILY COUNTS INCLUDE 234 BEDS AT THE [facility] Last Admin: 06/29/19 09:17 Dose: 20 mg Documented by: Vancomycin IV Pharmacy to Dose (1 ea/ Sodium Chloride) 500 mls @ 250 mls/hr IV PRN PRN; Protocol PRN Reason: Rx to Dose Sodium Chloride () 250 mls @ 15 mls/hr IV .[id number] PRN PRN Reason: Saline Flush Last Infusion: 06/28/19 12:39 Dose: 0 mls/hr Documented by: Sodium Chloride () 250 mls @ 15 mls/hr IV .[id number] PRN PRN Reason: Additional IVPB Infusion Amiodarone HCl 300 mg/ (Dextrose) 106 mls @ 618 mls/hr IV BOLUS Q24 MALGORZATA Last Admin: 06/29/19 11:23 Dose: Not Given Documented by: Enteral Nutritional Formula (Vital Af 1.2 Juma Liquid) 1,000 mls @ 20 mls/hr GT .Q48H MALGORZATA Last Admin: 06/29/19 09:25 Dose: 20 mls/hr Documented by: Nutritional Formula (Thor - [place] Flavor) 1 packet GT BID MALGORZATA Last Admin: 06/29/19 09:17 Dose: 1 packet Documented by: Senna/Docusate Sodium (Senokot-S, Laureen-Colace) 2 tablet GT DAILY PRN PRN PRN Reason: CONSTIPATION Sodium Chloride () 10 - 40 ml IV UD PRN PRN Reason: SALINE FLUSH Last Admin: 06/28/19 12:21 Dose: 10 ml Documented by: Medical Necessity - Tobacco Use Smoking Status: Smoker, status unknown Tobacco Use: Non-smoker Assessment/Plan All Active Problems Perirectal abscess (Acute) Severe sepsis (Acute) Acute respiratory failure with hypoxia and hypercapnia (Acute) Bilateral pneumonia (Acute) Infection due to [facility] coronavirus (Acute) 1. Acute kidney injury. Baseline SCr is normal. SCr was 0.92 mg/dL on 06/14/19. ABIGAIL is due to ATN related to sepsis. She is oliguric and is dialysis dependent. Had some issue with dialysis (with low BP) on 06/26/19. Only tolerated 2 hrs of HD on 06/26/19. The pt tolerated dialysis better yesterday (06/28/19). Was able to remove 734 mL because she became more hypotensive and tachycardic towards the end of HD. No need for HD today. Anticipate next HD on 07/01/19 unless more fluid removal is required before then. 2. Hyperkalemia. secondary to #1. Used 2K dialysate yesterday. K is better today. Recheck K in am. 3. Hyperphosphatemia. secondary to #1. IHD does not efficiently remove phos, so if she is started on tube feed, I will start phos binder as well. Recheck phos in am. 4. Acute hypoxic respiratory failure. Pt has COVID related pneumonia/ARDS. Supportive care as directed by plasma processing technician. Antimicrobial as per ID. O>I with dialysis.
[2019-06-30] VITALS (37 sets, daily range): BP systolic 87–134; BP diastolic 59–84; PULSE 96–126; RESP 12–39; TEMP 37.4–38.8; O2SAT 90–96
[2019-06-30] MEDS: CHLORHEXIDINE GLUC 2% CLOTH 1 EACH TOWELETTE TOPICAL (03:02)
[2019-06-30 04:01] LABS: Absolute Lymphocyte Count 1.86 X10^3/uL (0.83-4.51); Absolute Neutrophil Count 11.6 X10^3/uL (2.0-7.7); Basophil# 0.03 X10^3/uL; Basophil% 0.2 % (0-1); Differential Indicated SCAN CRITERIA MET; Eosinophil# 0.13 X10^3/uL; Eosinophils% 0.9 % (0-5); Hematocrit 32.9 % (37-47); Lymphocyte # 1.86 X10^3/ul (4.0); Lymphocyte % 12.8 % (19-41); Mean Corp Hgb Conc 30.4 g/dL (32-36); Mean Corpuscular Volume 92.2 fL (81-99); Mean Platelet Vol. 10.8 fl (6.2-12.0); Monocyte# 0.74 X10^3/uL; Monocyte% 5.1 % (0-10); NRBC Flagged by Analyzer 0 % (0-5); Neutrophil # 11.55 X10^3/uL (2.7-7.7); Neutrophil % 79.3 % (47-70); POSITIVE MORPHOLOGY YES; Platelet Count 151 K/mm3 (150-450); RBC Distribution Width CV 22.3 % (11.6-14.6); RBC Distribution Width SD 70.4 fl (35.1-43.9); Red Blood Count 3.57 M/mm3 (4.2-5.4); White Blood Count 14.6 K/mm3 (4.4-11.0)
[2019-06-30 04:13] LABS: Albumin, Serum 2.1 g/dL (3.2-5.0); BUN 85 mg/dL (7-18); BUN/Creat Ratio 23.7 RATIO (10-20); Calcium,Total 8.7 mg/dL (8.5-10.1); Chloride 105 mmol/L (98-107); Creatinine, Serum 3.58 mg/dL (0.55-1.02); EST Glomerular Filtration Rate 14 mL/min (>60); Est Glom Filt Rate - Afr Amer 17 mL/min (>60); Estimated Creatinine Clearance 14.43 ml/min; Glucose 117 mg/dL (74-106); Phosphorus 6.8 mg/dL (2.5-4.9); Potassium 3.6 mmol/L (3.5-5.1); Sodium Level 143 mmol/L (136-145)
[2019-06-30 04:15] LABS: Differential Comment SCANNED
[2019-06-30 04:16] LABS: Microcytosis RARE; Polychromasia RARE
[2019-06-30 04:17] LABS: Stomatocyte RARE
[2019-06-30 04:32] LABS: Vancomycin, Random Level 16.6 ug/mL (0.0-15.0)
--- NOTE | 2019-06-30 07:59 | PCM.PN.INT ---
Subjective: Patient did okay overnight. No mucous plugging events were reported, but patient continues to be essentially dependent on BiPAP therapy. Blood pressures have been stable. Patient has been responding to positional pulmonary toileting. Patient continues to be alert, but not very interactive. General: Alert, Confused, Disoriented, Non-Cooperative, - - Obese. No effort in vocalization HEENT: Atraumatic, PERRLA, EOMI, Normocephalic, - - No scleral icterus or injection noted Oral: No Gingival or Mucosal Lesions/ Ulcerations, Dry Mucosa Neck: Supple, No JVD, No Nodes, Trachea Midline Lungs: No rhonchi, No wheeze, No rales, Diminished - Left greater than right, - - Symmetric expansion Cardiovascular: Normal S1, Normal S2, No murmurs, No rub noted, No Gallop, Tachycardic Abdomen: Bowel Sounds Present, Soft, Non Tender, Non-Distended, Obese Extremities: No cyanosis, Capillary Refill Less than 3 Seconds, Edema Skin: - - No significant change compared to previous Musculoskeletal: No Tenderness to Palpation of Joints or Extremities Lymphatic: No Cervical, Supraclavicular, or Inguinal Adenopathy Neurological: Neuro grossly intact - Nonfocal exam, but patient is not very interactive at this time Psych/Mental Status: Flat Affect Vital Signs Temp Pulse Resp BP Pulse Ox 37.6 C H 117 H 17 134/84 H 94 06/30/19 06:00 06/30/19 06:00 06/30/19 06:00 06/30/19 06:00 06/30/19 06:00 Oxygen Flow Rate (L/min) 6 Oxygen Delivery Method Bi-pap Weight: 95.2 kg Body Mass Index (BMI) 39.4 Intake and Output for Last 24 Hours 06/28/19 06/29/19 06/30/19 23:59 23:59 23:59 Intake Total 178.1 / 178.1 325 / 325 173 / 173 Output Total 829 / 829 91 / 91 Balance -650.9 / -650.9 234 / 234 156 / 156 Labs (Last 48 Hours) 06/28/19 06/29/19 06/29/19 20:19 04:45 04:45 WBC RBC Hgb Hct MCV MCH MCHC RDW Std Deviation RDW Coeff of Bassam Plt Count MPV Immature Gran % (Auto) Neut % (Auto) Lymph % (Auto) [place] % (Auto) Eos % (Auto) Baso % (Auto) Absolute Neuts (auto) Absolute Lymphs (auto) Nucleated RBC % Differential Comment Platelet Estimate Polychromasia Hypochromasia Anisocytosis Microcytosis Stomatocytes Specimen Type ART Sample Site R RADIAL pH 7.40 Bicarbonate Actual 27.7 H POC Total CO2 29 Base Excess 3 H O2 Saturation 78 L O2 % 100 ABG pCO2 44.9 ABG pO2 43 L Justo Test POS Respiration Rate 12 O2 Delivery Device Bi Pap EPAP 16 IPAP 22 Blood Gas Notified Whom ICU Blood Gas Notified Time 2022 Sodium 142 Potassium 4.3 Chloride 102 Carbon Dioxide 27.0 BUN 56 H Creatinine 2.75 H Estim Creat Clear Calc 18.79 Est GFR (MDRD) Af Amer 23 L Est GFR (MDRD) Non-Af 19 L BUN/Creatinine Ratio 20.4 H Glucose 113 H Calcium 8.9 Phosphorus 7.7 H Albumin 2.2 L Random Vancomycin 17.5 H 06/29/19 06/30/19 06/30/19 04:45 03:50 03:50 WBC 17.5 H RBC 3.78 L Hgb 10.6 L Hct 35.1 L MCV 92.9 MCH 28.0 MCHC 30.2 L RDW Std Deviation 68.1 H RDW Coeff of Bassam 22.1 H Plt Count 183 MPV 11.5 Immature Gran % (Auto) 1.900 H Neut % (Auto) 82.0 H Lymph % (Auto) 11.1 L [place] % (Auto) 4.6 Eos % (Auto) 0.2 Baso % (Auto) 0.2 Absolute Neuts (auto) 14.4 H Absolute Lymphs (auto) 1.94 Nucleated RBC % 0 Differential Comment Platelet Estimate ADEQUATE Polychromasia Hypochromasia 1+ Anisocytosis 1+ Microcytosis Stomatocytes Specimen Type Sample Site pH Bicarbonate Actual POC Total CO2 Base Excess O2 Saturation O2 % ABG pCO2 ABG pO2 Justo Test Respiration Rate O2 Delivery Device EPAP IPAP Blood Gas Notified Whom Blood Gas Notified Time Sodium 143 Potassium 3.6 Chloride 105 Carbon Dioxide 26.0 BUN 85 H Creatinine 3.58 H Estim Creat Clear Calc 14.43 Est GFR (MDRD) Af Amer 17 L Est GFR (MDRD) Non-Af 14 L BUN/Creatinine Ratio 23.7 H Glucose 117 H Calcium 8.7 Phosphorus 6.8 H Albumin 2.1 L Random Vancomycin 16.6 H 06/30/19 03:50 WBC 14.6 H RBC 3.57 L Hgb 10.0 L Hct 32.9 L MCV 92.2 MCH 28.0 MCHC 30.4 L RDW Std Deviation 70.4 H RDW Coeff of Bassam 22.3 H Plt Count 151 MPV 10.8 Immature Gran % (Auto) 1.700 H Neut % (Auto) 79.3 H Lymph % (Auto) 12.8 L [place] % (Auto) 5.1 Eos % (Auto) 0.9 Baso % (Auto) 0.2 Absolute Neuts (auto) 11.6 H Absolute Lymphs (auto) 1.86 Nucleated RBC % 0 Differential Comment SCANNED Platelet Estimate Polychromasia RARE Hypochromasia Anisocytosis Microcytosis RARE Stomatocytes RARE Specimen Type Sample Site pH Bicarbonate Actual POC Total CO2 Base Excess O2 Saturation O2 % ABG pCO2 ABG pO2 Justo Test Respiration Rate O2 Delivery Device EPAP IPAP Blood Gas Notified Whom Blood Gas Notified Time Sodium Potassium Chloride Carbon Dioxide BUN Creatinine Estim Creat Clear Calc Est GFR (MDRD) Af Amer Est GFR (MDRD) Non-Af BUN/Creatinine Ratio Glucose Calcium Phosphorus Albumin Random Vancomycin Clinical Impression(s) from Imaging Studies Chest X-Ray 06/29/19 05:50 IMPRESSION: Bilateral pneumonitis as described. Minimal left-sided pleural effusion. Lines and tubes as described. Electronically Signed: Eileen Morris MD at 0:56 EDT , Service support , Medical Necessity - Tobacco Use Smoking Status: Smoker, status unknown Tobacco Use: Non-smoker Assessment/Plan All Active Problems Perirectal abscess (Acute) Severe sepsis (Acute) Acute respiratory failure with hypoxia and hypercapnia (Acute) Bilateral pneumonia (Acute) Infection due to [place] coronavirus (Acute) RECOMMENDATIONS: 1. Wean BiPAP as tolerated once FiO2 at 40% 2. Aggressive pulmonary toileting. Discontinue atropine 3. BiPAP breaks during the day pending clinical course 4. Continue hemodialysis per nephrology recommendations. 5. Hospice measures. May need to consider tracheostomy and PEG if continues to want to be aggressive 6. Continue appropriate ICU prophylaxis. 7. Wean oxygen as tolerated 8. DNR Comfort Care arrest without intubation IMPRESSIONS: 1. Acute hypoxemic respiratory failure 2/2 ARDS due to COVID-19 infection combined with MRSA Pneumonia Continue current supportive measures with invasive mechanical ventilatory support, employing a lung protective strategy, along with antimicrobials per infectious diseases recommendations. Azithromycin and Plaquenil were avoided due to prolonged QTC at baseline. Patient was extubated on 06/25/2019, but is consistently having increased oxygen demand. Patient was significant mucous plug 2 nights ago. Will discontinue atropine. Good response to pulmonary toileting with NT suctioning and manual manipulation. Continue to wean oxygen as tolerated. Once at 40%, can attempt to wean IPAP and EPAP by 2 cm irregular intervals. Patient is still on substantial BiPAP at 22/14 centimeters of water with 70% FiO2. Very poor cough noted. Patient may need a tracheostomy for pulmonary toileting if she wishes to continue to be aggressive. Alternative would be hospice measures, but family has not been receptive to this thus far. 2. Severe sepsis secondary to COVID-19 Infection and MRSA Pneumonia Continue current supportive measures as noted above. The patient remains hemodynamically stable. Infectious diseases following. Defer antibiotic selection/course to them. No fever was noted overnight. Patient did have repeat blood cultures, but no growth has been noted to date. 3. Acute kidney injury progressing to acute renal failure The patient developed worsening renal insufficiency over the course of her hospitalization. Concern for ATN in the setting of COVID infection. The patient has become progressively uremic, which has left her an encephalopathic state. Nephrology is currently following to assist with hemodialysis needs. Patient appears to be dialysis dependent at this time. 4. Encephalopathy Appears to be resolving with hemodialysis. Concern for toxic metabolic encephalopathy, with underlying worsening uremia contributing. Nephrology is currently following to assist with hemodialysis needs. Continue to withhold all sedating medications. 5. Diabetes mellitus/hypertension/schizoaffective disorder/morbid obesity/multiple decubitus ulcers Complicates care, management, recovery and prognosis. Continue sliding scale insulin coverage. Once patient improves, evaluation by plastic surgery may be necessary. Patient's family has not been very receptive to nonaggressive measures. However, given failure to improve on BiPAP therapy after several days, hospice measures would be a consideration. TIME: 35 minutes of critical care time, independent of procedures, was spent addressing the patient's acute hypoxemic respiratory failure, ARDS secondary to coronavirus infection and MRSA pneumonia, severe sepsis, acute kidney injury, encephalopathy, review of all data and collaboration with the care team. (5:45 AM to 7:05 AM) [id number]: [id number] Critical care first hour
[2019-06-30] MEDS: Amiodarone 200 MG Tablet 400 MG GT (08:38)
[2019-06-30] MEDS: Famotidine 20 MG Tablet GT (08:38)
[2019-06-30] MEDS: Vital AF 1.2 Cal Liquid 1,000 ML 20 ML GT (08:42)
--- NOTE | 2019-06-30 12:54 | PCM.RX.CS ---
Consult Pharmacy has been consulted to manage selected antiobiotic: Vancomycin Type of Consult: Follow-up Suspected Infection: Sepsis, Pneumonia Prior Doses of Antibiotics Received/Current Regimen: Last vancomycin dose was 500mg x1 given 06/25 Labs: Sodium 143 mmol/L (136-145) 06/30/19 03:50 Potassium 3.6 mmol/L (3.5-5.1) 06/30/19 03:50 Chloride 105 mmol/L (98-107) 06/30/19 03:50 Carbon Dioxide 26.0 mmol/L (21.0-32.0) 06/30/19 03:50 Anion Gap 12 (5-15) 06/28/19 04:55 BUN 85 mg/dL (7-18) H 06/30/19 03:50 Creatinine 3.58 mg/dL (0.55-1.02) H 06/30/19 03:50 Est GFR (MDRD) Af Amer 17 mL/min (>60) L 06/30/19 03:50 Est GFR (MDRD) Non-Af 14 mL/min (>60) L 06/30/19 03:50 BUN/Creatinine Ratio 23.7 RATIO (10-20) H 06/30/19 03:50 Glucose 117 mg/dL (74-106) H 06/30/19 03:50 Vancomycin Trough 47.1 ug/mL (5.0-15.0) H 06/15/19 18:00 Random Vancomycin 16.6 ug/mL (0.0-15.0) H 06/30/19 03:50 Microbiology: Microbiology 06/28/19 11:00 Blood Culture (Wb) #2 - Right Hand Blood Culture - Preliminary No growth in 48 hours. 06/28/19 10:05 Blood Culture (Wb) - Port Blood Culture - Preliminary No growth in 48 hours. 06/20/19 07:00 Sputum, Induced/Lukens Gram Stain - Final 06/20/19 07:00 Sputum, Induced/Lukens Respiratory Culture - Final Meth. resistant Staph. aureus 06/13/19 13:15 Blood Culture (Wb) - Left Hand Blood Culture - Final No growth in 5 days. 06/13/19 13:15 Blood Culture (Wb) - Anticubital Right Blood Culture - Final No growth in 5 days. 06/18/19 09:00 Stool C. difficile DNA Amplification - Final 06/13/19 14:47 Urine Catheter - Siddiqi Urine Culture - Final Presumptive C albicans Meth. resistant Staph. aureus Enterococcus faecalis 06/13/19 18:00 Wound - Buttock Gram Stain - Final 06/13/19 18:00 Wound - Buttock Wound Culture - Final Proteus mirabilis Meth. resistant Staph. aureus Corynebacterium amycolatum 06/14/19 12:30 Sputum, Induced/Lukens Gram Stain - Final 06/14/19 12:30 Sputum, Induced/Lukens Respiratory Culture - Final Meth. resistant Staph. aureus 06/13/19 18:00 Wound - Abdominal Gram Stain - Final 06/13/19 18:00 Wound - Abdominal Wound Culture - Final Proteus mirabilis Meth. resistant Staph. aureus Corynebacterium amycolatum Estimated Creatinine Clearance: 14 Goal Trough: 15-20 mcg/mL Pharmacy Plan for Drug Dosing: Pt will not have HD today, likely tomorrow. Random level came back therapeutic at 16.6 mg/dL and patient had a large increase in SCr so will not give a dose today. Will order a pre-HD level tomorrow morning to assess if dose is needed after HD. Pharmacy Service will continue to monitor and adjust dosing as required. Labs to be done on [date and time ordered]: Random 07/01/19 @ 0600
[2019-06-30] MEDS: Enoxaparin 30 MG/0.3 ML Syringe SC (13:02)
[2019-06-30] MEDS: Acetaminophen 650 MG/20 ML UDC GT ×2 (13:07→20:07)
--- NOTE | 2019-06-30 20:03 | PN.RENAL_ITS ---
Patient Problems: Active and Suspected Problems Severe sepsis (Acute) Acute respiratory failure with hypoxia and hypercapnia (Acute) Bilateral pneumonia (Acute) Infection due to [facility] coronavirus (Acute) Subjective: Following for ABIGAIL. Pt remains confused. On BiPAP. Cannot do ROS. Remains off pressor. Objective: General: Confused HEENT: - - on BiPAP Cardiovascular: Tachycardic, - - Exam limited by COVID isolation and need to c onserve PPE. Extremities: Edema - Physical Exam Vitals/I&O's: Vital Signs Temp Pulse Resp BP Pulse Ox 101.6 F H 125 H 29 H 115/70 92 06/30/19 19:00 06/30/19 19:30 06/30/19 19:30 06/30/19 19:00 06/30/19 19:30 Oxygen Flow Rate (L/min) 6 Oxygen Delivery Method Bi-pap Weight: 95.2 kg Body Mass Index (BMI) 39.4 Intake and Output for Last 24 Hours 06/28/19 06/29/19 06/30/19 23:59 23:59 23:59 Intake Total 178.1 / 178.1 325 / 325 173 / 173 Output Total 829 / 829 91 / 91 77 / 77 Balance -650.9 / -650.9 234 / 234 96 / 96 Microbiology Past 72 Hours 06/28/19 11:00 Blood Culture (Wb) #2 - Right Hand Blood Culture - Preliminary No growth in 48 hours. 06/28/19 10:05 Blood Culture (Wb) - Port Blood Culture - Preliminary No growth in 48 hours. Laboratory Results 06/30/19 03:50: Random Vancomycin 16.6 H 06/30/19 03:50: Sodium 143, Potassium 3.6, Chloride 105, Carbon Dioxide 26.0, BUN 85 H, Creatinine 3.58 H, Estim Creat Clear Calc 14.43, Est GFR (MDRD) Af Amer 17 L, Est GFR (MDRD) Non-Af 14 L, BUN/Creatinine Ratio 23.7 H, Glucose 117 H, Calcium 8.7, Phosphorus 6.8 H, Albumin 2.1 L 06/30/19 03:50: WBC 14.6 H, RBC 3.57 L, Hgb 10.0 L, Hct 32.9 L, MCV 92.2, MCH 28.0, MCHC 30.4 L, RDW Std Deviation 70.4 H, RDW Coeff of Bassam 22.3 H, Plt Count 151, MPV 10.8, Immature Gran % (Auto) 1.700 H, Neut % (Auto) 79.3 H, Lymph % (Auto) 12.8 L, [place] % (Auto) 5.1, Eos % (Auto) 0.9, Baso % (Auto) 0.2, Absolute Neuts (auto) 11.6 H, Absolute Lymphs (auto) 1.86, Nucleated RBC % 0, Differential Comment SCANNED, Polychromasia RARE, Microcytosis RARE, Stomatocytes RARE Current Medications Acetaminophen (Tylenol Liquid) 650 mg GT Q4H PRN PRN PRN Reason: TEMP > 100.5 F Last Admin: 06/30/19 13:07 Dose: 650 mg Documented by: Albuterol Sulfate (Ventolin Aerosols) 2.5 mg INHALATION Q4H PRN PRN PRN Reason: WHEEZING Last Admin: 06/16/19 19:01 Dose: 2.5 mg Documented by: Amiodarone HCl (Cordarone) 400 mg GT DAILY [facility] Last Admin: 06/30/19 08:38 Dose: 400 mg Documented by: Chlorhexidine Gluconate () 1 each TOPICAL DAILY [facility] Last Admin: 06/30/19 03:02 Dose: 1 each Documented by: Zinc Sulfate 220 mg/ Vela Syrup 2.5 ml/ Sterile Water 2. 5 ml 0 mg NG Q8H [facility] Last Admin: 06/30/19 17:18 Dose: 5 oral.susp Documented by: Enoxaparin Sodium (Lovenox) 30 mg SC DAILY [facility] Last Admin: 06/30/19 13:02 Dose: 30 mg Documented by: Famotidine (Pepcid) 20 mg GT DAILY [facility] Last Admin: 06/30/19 08:38 Dose: 20 mg Documented by: Vancomycin IV Pharmacy to Dose (1 ea/ Sodium Chloride) 500 mls @ 250 mls/hr IV PRN PRN; Protocol PRN Reason: Rx to Dose Sodium Chloride () 250 mls @ 15 mls/hr IV .[id number] PRN PRN Reason: Saline Flush Last Infusion: 06/28/19 12:39 Dose: 0 mls/hr Documented by: Sodium Chloride () 250 mls @ 15 mls/hr IV .[id number] PRN PRN Reason: Additional IVPB Infusion Enteral Nutritional Formula (Vital Af 1.2 Juma Liquid) 1,000 mls @ 20 mls/hr GT .Q48H [facility] Last Admin: 06/30/19 08:42 Dose: 20 mls/hr Documented by: Nutritional Formula (Thor - Joseph Flavor) 1 packet GT BID [facility] Last Admin: 06/30/19 08:38 Dose: 1 packet Documented by: Senna/Docusate Sodium (Senokot-S, Laureen-Colace) 2 tablet GT DAILY PRN PRN PRN Reason: CONSTIPATION Sodium Chloride () 10 - 40 ml IV UD PRN PRN Reason: SALINE FLUSH Last Admin: 06/28/19 12:21 Dose: 10 ml Documented by: Medical Necessity - Tobacco Use Smoking Status: Smoker, status unknown Tobacco Use: Non-smoker Assessment/Plan All Active Problems Perirectal abscess (Acute) Severe sepsis (Acute) Acute respiratory failure with hypoxia and hypercapnia (Acute) Bilateral pneumonia (Acute) Infection due to [facility] coronavirus (Acute) 1. Acute kidney injury. Baseline SCr is normal. SCr was 0.92 mg/dL on 06/14/19. ABIGAIL is due to ATN related to sepsis. She is oliguric and is dialysis dependent. Had some issue with dialysis (with low BP) on 06/26/19. Only tolerated 2 hrs of HD on 06/26/19. The pt tolerated dialysis better on 06/28/19. Was able to remove only 734 mL because she became more hypotensive and tachycardic towards the end of HD. No need for HD today. Will plan on HD on 07/01/19. 2. Hyperkalemia. secondary to #1. Used 2K dialysate on 06/28/19. K is stable today. Recheck K in am to help guide dialysate choice. 3. Hyperphosphatemia. secondary to #1. IHD does not efficiently remove phos, so if she is started on tube feed, I will start phos binder as well. Recheck phos in am. 4. Acute hypoxic respiratory failure. Pt has COVID related pneumonia/ARDS. Supportive care as directed by balance wheel motion inspector. Antimicrobial as per ID. O>I with dialysis.
[2019-07-01] VITALS (31 sets, daily range): BP systolic 68–141; BP diastolic 52–82; PULSE 96–130; RESP 12–39; TEMP 37.7–38.6; O2SAT 91–95
[2019-07-01] MEDS: CHLORHEXIDINE GLUC 2% CLOTH 1 EACH TOWELETTE TOPICAL (03:45)
[2019-07-01 04:10] LABS: BUN 120 mg/dL (7-18); BUN/Creat Ratio 27.6 RATIO (10-20); Calcium,Total 8.7 mg/dL (8.5-10.1); Chloride 108 mmol/L (98-107); Creatinine, Serum 4.34 mg/dL (0.55-1.02); EST Glomerular Filtration Rate 11 mL/min (>60); Est Glom Filt Rate - Afr Amer 13 mL/min (>60); Glucose 130 mg/dL (74-106); Phosphorus 6.6 mg/dL (2.5-4.9); Potassium 3.9 mmol/L (3.5-5.1); Sodium Level 144 mmol/L (136-145)
[2019-07-01 04:21] LABS: Vancomycin, Random Level 16.8 ug/mL (0.0-15.0)
--- NOTE | 2019-07-01 06:30 | PN_ITS ---
Subjective: The patient was seen and examined at the bedside this morning. Events from the last 24 hours have been reviewed. The patient is currently febrile with a T-max overnight of 101.8 ?F. She remains persistently tachycardic and tachypneic. The patient has been unable to be weaned from continuous BiPAP therapy. FiO2 requirement is currently 50%. Nursing staff reports the presence of loose stools. BUN is elevated this morning to 120. The patient was extubated on 24 June and has remained BiPAP dependent since that time. This morning I did personally call and speak with the patient's daughter and updated her on the patient's clinical status. At this time, the patient has failed her trial of extubation and has remained BiPAP dependent. She is not improving clinically. Therefore, I explained to the patient's family that they had 2 options including transition to comfort care or proceeding with aggressive measures which would include reintubating the patient and proceeding with trach and PEG placement. Following a family discussion, they would like to proceed with pursuing tracheostomy and PEG tube placement. Objective: The patient's most recent lab work, culture data and imaging studies have all been personally reviewed. Blood cultures have shown no growth to date. Urine culture was positive for MRSA and Enterococcus faecalis. Abdominal wound culture was positive for Proteus mirabilis, MRSA and Corynebacterium. Buttock wound culture was positive for Proteus mirabilis, MRSA and Corynebacterium. Sputum culture was positive for MRSA. C. difficile testing was negative. General: Alert, Confused, Disoriented, - - Opens eyes to verbal stimulation but does not track or follow commands. HEENT: Atraumatic, Normocephalic Oral: No Gingival or Mucosal Lesions/ Ulcerations Neck: Supple, No Nodes, Trachea Midline Lungs: Diminished Cardiovascular: Normal S1, Normal S2, Irregular Rate, Tachycardic Abdomen: Bowel Sounds Present, Soft, Non Tender, Obese Extremities: No clubbing, No cyanosis, Edema Skin: - - No change from previous Musculoskeletal: No Muscle Wasting Lymphatic: No Cervical, Supraclavicular, or Inguinal Adenopathy Neurological: - - No focal deficits. Patient remains quite lethargic Vital Signs Temp Pulse Resp BP Pulse Ox 100.3 F H 128 H 32 H 141/74 H 92 07/01/19 06:00 07/01/19 06:00 07/01/19 06:00 07/01/19 06:00 07/01/19 06:00 Oxygen Flow Rate (L/min) 6 Oxygen Delivery Method Bi-pap Weight: 209 lb 3.499 oz Body Mass Index (BMI) 39.4 Intake and Output for Last 24 Hours 06/29/19 06/30/19 07/01/19 23:59 23:59 23:59 Intake Total 325 / 325 543 / 543 248 / 248 Output Total 91 / 91 112 / 112 15 / 15 Balance 234 / 234 431 / 431 233 / 233 Labs (Last 48 Hours) 06/30/19 06/30/19 06/30/19 03:50 03:50 03:50 WBC 14.6 H RBC 3.57 L Hgb 10.0 L Hct 32.9 L MCV 92.2 MCH 28.0 MCHC 30.4 L RDW Std Deviation 70.4 H RDW Coeff of Bassam 22.3 H Plt Count 151 MPV 10.8 Immature Gran % (Auto) 1.700 H Neut % (Auto) 79.3 H Lymph % (Auto) 12.8 L [place] % (Auto) 5.1 Eos % (Auto) 0.9 Baso % (Auto) 0.2 Absolute Neuts (auto) 11.6 H Absolute Lymphs (auto) 1.86 Nucleated RBC % 0 Differential Comment SCANNED Polychromasia RARE Microcytosis RARE Stomatocytes RARE Sodium 143 Potassium 3.6 Chloride 105 Carbon Dioxide 26.0 BUN 85 H Creatinine 3.58 H Estim Creat Clear Calc 14.43 Est GFR (MDRD) Af Amer 17 L Est GFR (MDRD) Non-Af 14 L BUN/Creatinine Ratio 23.7 H Glucose 117 H Calcium 8.7 Phosphorus 6.8 H Albumin 2.1 L Random Vancomycin 16.6 H 07/01/19 07/01/19 03:40 03:40 WBC RBC Hgb Hct MCV MCH MCHC RDW Std Deviation RDW Coeff of Bassam Plt Count MPV Immature Gran % (Auto) Neut % (Auto) Lymph % (Auto) [place] % (Auto) Eos % (Auto) Baso % (Auto) Absolute Neuts (auto) Absolute Lymphs (auto) Nucleated RBC % Differential Comment Polychromasia Microcytosis Stomatocytes Sodium 144 Potassium 3.9 Chloride 108 H Carbon Dioxide 23.0 BUN 120 H* Creatinine 4.34 H Estim Creat Clear Calc 11.90 Est GFR (MDRD) Af Amer 13 L Est GFR (MDRD) Non-Af 11 L BUN/Creatinine Ratio 27.6 H Glucose 130 H Calcium 8.7 Phosphorus 6.6 H Albumin 2.0 L Random Vancomycin 16.8 H Microbiology 06/28/19 11:00 Blood Culture (Wb) #2 - Right Hand Blood Culture - Preliminary No growth in 48 hours. 06/28/19 10:05 Blood Culture (Wb) - Port Blood Culture - Preliminary No growth in 48 hours. Clinical Impression(s) from Imaging Studies Chest X-Ray 06/13/19 14:30 IMPRESSION: Infiltrates in the right lung as well as in the left mid lung. Follow-up is recommended. The tip of the endotracheal tube is at 4 cm proximal to the garret. Electronically Signed: Steve Fierro, at 14:55 EDT , Service support , Hip/Pelvis X-Ray 06/13/19 14:30 IMPRESSION: Degenerative changes of both hips as well as the sacroiliac joints. Electronically Signed: Steve Fierro, at 14:55 EDT , Service support , KUB X-Ray 06/13/19 14:30 IMPRESSION: The tip of the orogastric tube is seen in the distal stomach/pyloric region. Electronically Signed: Steve Fierro, at 14:53 EDT , Service support , Renal Ultrasound 06/17/19 12:36 IMPRESSION: 1.3 cm x 1.5 cm x 1.3 cm left renal cyst. Moderate degree of the left hydronephrosis. Distended urinary bladder. Electronically Signed: Steve Fierro at 15:35 EDT , Service support , Chest X-Ray 06/18/19 16:30 IMPRESSION: A dialysis catheter seen through the right IJ terminating in the lower SVC. No pneumothorax. No other change. Electronically Signed: Shiv Carr MD at 17:18 EDT , Service support , Chest X-Ray 06/25/19 16:50 IMPRESSION: 1. Interval removal of endotracheal tube and nasogastric tube. 2. Right internal jugular temporary dialysis catheter which is unchanged. 3. No change in bilateral pneumonia, edema, or ARDS. 4. No change in small left pleural effusion. Electronically Signed: Colt Pederson MD at 17:25 EDT Tel , Service support , KUB X-Ray 06/28/19 16:45 IMPRESSION: NG tube tip in the body of the stomach Electronically Signed: Miguel Bradley MD at 17:31 EDT , Service support , Chest X-Ray 06/28/19 20:30 IMPRESSION: Increasing opacification left hemithorax due to combination of lung disease and possible small effusion. Persistent diffuse interstitial thickening in the right lung with slightly improved aeration since previous study Electronically Signed: Shelton Dubose MD at 20:43 EDT , Service support , Chest X-Ray 06/29/19 05:50 IMPRESSION: Bilateral pneumonitis as described. Minimal left-sided pleural effusion. Lines and tubes as described. Electronically Signed: Eileen Morris MD at 0:56 EDT , Service support , Medical Necessity - Tobacco Use Smoking Status: Smoker, status unknown Tobacco Use: Non-smoker Assessment/Plan All Active Problems Perirectal abscess (Acute) Severe sepsis (Acute) Acute respiratory failure with hypoxia and hypercapnia (Acute) Bilateral pneumonia (Acute) Infection due to [facility] coronavirus (Acute) RECOMMENDATIONS: 1. Continue BiPAP therapy until goals of care can be discussed with patient's family. 2. Given the patient's lack of progression from BiPAP, she will likely require reintubation, if the family wishes to have Trach/PEG placed. 3. If the patient does require reintubation, recommend proceeding with tracheostomy and PEG tube placement. 4. Wean FiO2 to maintain oxygen saturations at or above 90%. 5. Continue hemodialysis per nephrology recommendations. 6. Continue trophic tube feeds for now. 7. Send coronavirus re-test, per ENT request. IMPRESSIONS: 1. Acute hypoxemic respiratory failure 2/2 ARDS due to COVID-19 infection combined with MRSA Pneumonia Stable. After a prolonged period of invasive mechanical ventilatory support, the patient was able to be extubated on June 24. However, the patient has remained essentially BiPAP dependent since that time. Azithromycin and Plaquenil were avoided due to prolonged QTC at baseline. Continue to wean FiO2 to maintai n oxygen saturations at or above 90%. Continue antimicrobials per ID recommendations. We will plan to discuss goals of care with the patient's family today. 2. Severe sepsis secondary to COVID-19 Infection and MRSA Pneumonia Continue current supportive measures as noted above. The patient remains hemodynamically stable. 3. Acute kidney injury The patient developed worsening renal insufficiency over the course of her hospitalization. Concern for ATN in the setting of COVID infection. Nephrology is currently following to assist with hemodialysis needs. 4. Encephalopathy Concern for toxic metabolic encephalopathy. Nephrology is currently following to assist with hemodialysis needs. Continue to withhold all sedating medications. 5. Diabetes mellitus/hypertension/schizoaffective disorder/morbid obesity Complicates care, management, recovery and prognosis. Continue sliding scale insulin coverage. TIME: 42 minutes of critical care time, independent of procedures, was spent addressing the patient's acute hypoxemic respiratory failure, ARDS secondary to coronavirus infection and MRSA pneumonia, severe sepsis, acute kidney injury, encephalopathy, review of all data and collaboration with the care team. (0800- 0900) [id number]: [id number] Critical care first hour
[2019-07-01] MEDS: Famotidine 20 MG Tablet GT (08:08)
[2019-07-01] MEDS: Enoxaparin 30 MG/0.3 ML Syringe SC (08:08)
[2019-07-01] MEDS: Amiodarone 200 MG Tablet 400 MG GT (08:08)
[2019-07-01] MEDS: Vital AF 1.2 Cal Liquid 1,000 ML 20 ML GT (08:24)
[2019-07-01] MEDS: Acetaminophen 650 MG/20 ML UDC GT ×2 (08:24→12:57)
--- NOTE | 2019-07-01 09:59 | CASEMGMT ---
Addendum entered by Santhosh Park 07/01/19 10:38: Pt's son called back requesting to speak with physician. Dr. Torres spoke with so who is requesting all measures be continued including intubation, and subsequent trach, PEG. DC planning will be deferred at this time as pt will remain in ICU presently. Repeat COVID-19 testing will be performed. Promise LEBRON Original Note: AMAYA CAMPBELL Note: Participated in ICU interdisciplinary rounds. Pt continues on Bipap. Discussion with physician, nursing, RT re: plan of care going forward re: Hospice vs tracheostomy, peg. Called to [facility]. Policy for accepting COVID-19 patients has changed to allow evaluation for a pt that has been in hospital 14 days or more. Repeat COVID 19 test is requested, but may not need to be negative. Each case is reviewed individually. It is possible, if LTAC is needed, pt would need to go to the area assigned LTAC near [place] for COVID positive pts in our region. Dr. Torres called to Daughter NIURKA Waggoner and explained pts condition in detail including requesting decision regarding continuing treatment which may require reintubation/trach/peg, or comfort care/Hospice. Daughter would like to speak with her brother and will call AMAYA CAMPBELL back. Nurse Lucila and KAILASH Groves updated re: above. Promise LEBRON
--- NOTE | 2019-07-01 10:23 | CASEMGMT ---
Social Work Note SW participated in ICU rounds. Pt remains on Bipap, unable to get weened off Bipap. Family will need to decide trach and PEG vs Hospice. SW updated physician that at this time, pt's HCPOA is pt's daughter Rosaline and those documents are on pt's chart. Pt is currently confused, unable to discuss HCPOA at this time. Case discussed with Dixon BHAGAT who confirms pt's daughter is HCPOA at this time. SW to continue to follow. Yaneth Benitez FLOORING MECHANIC, KICK PRESS OPERATOR
--- NOTE | 2019-07-01 11:49 | PCM.PN.REN ---
Patient Problems: Active and Suspected Problems Severe sepsis (Acute) Acute respiratory failure with hypoxia and hypercapnia (Acute) Bilateral pneumonia (Acute) Infection due to [facility] coronavirus (Acute) Subjective: no new events - Physical Exam Vitals/I&O's: Vital Signs Temp Pulse Resp BP Pulse Ox 101.3 F H 128 H 21 H 92/64 94 07/01/19 11:00 07/01/19 11:00 07/01/19 11:00 07/01/19 11:00 07/01/19 09:28 Oxygen Flow Rate (L/min) 6 Oxygen Delivery Method Bi-pap Weight: 94.9 kg Body Mass Index (BMI) 39.4 Intake and Output for Last 24 Hours 06/29/19 06/30/19 07/01/19 23:59 23:59 23:59 Intake Total 325 / 325 543 / 543 278 / 278 Output Total 91 / 91 112 / 112 15 / 15 Balance 234 / 234 431 / 431 263 / 263 Microbiology Past 72 Hours 06/28/19 11:00 Blood Culture (Wb) #2 - Right Hand Blood Culture - Preliminary No growth in 48 hours. 06/28/19 10:05 Blood Culture (Wb) - Port Blood Culture - Preliminary No growth in 48 hours. Laboratory Results 07/01/19 03:40: Random Vancomycin 16.8 H 07/01/19 03:40: Sodium 144, Potassium 3.9, Chloride 108 H, Carbon Dioxide 23.0, BUN 120 H*, Creatinine 4.34 H, Estim Creat Clear Calc 11.90, Est GFR (MDRD) Af Amer 13 L, Est GFR (MDRD) Non-Af 11 L, BUN/Creatinine Ratio 27.6 H, Glucose 130 H, Calcium 8.7, Phosphorus 6.6 H, Albumin 2.0 L 07/01/19 09:55: COVID-19 (NASH) Pending Current Medications Acetaminophen (Tylenol Liquid) 650 mg GT Q4H PRN PRN PRN Reason: TEMP > 100.5 F Last Admin: 07/01/19 08:24 Dose: 650 mg Documented by: Albuterol Sulfate (Ventolin Aerosols) 2.5 mg INHALATION Q4H PRN PRN PRN Reason: WHEEZING Last Admin: 06/16/19 19:01 Dose: 2.5 mg Documented by: Amiodarone HCl (Cordarone) 400 mg GT DAILY [facility] Last Admin: 07/01/19 08:08 Dose: 400 mg Documented by: Chlorhexidine Gluconate () 1 each TOPICAL DAILY [facility] Last Admin: 07/01/19 03:45 Dose: 1 each Documented by: Zinc Sulfate 220 mg/ Vela Syrup 2.5 ml/ Sterile Water 2. 5 ml 0 mg NG Q8H [facility] Last Admin: 07/01/19 08:08 Dose: 5 oral.susp Documented by: Enoxaparin Sodium (Lovenox) 30 mg SC DAILY [facility] Last Admin: 07/01/19 08:08 Dose: 30 mg Documented by: Famotidine (Pepcid) 20 mg GT DAILY [facility] Last Admin: 07/01/19 08:08 Dose: 20 mg Documented by: Vancomycin IV Pharmacy to Dose (1 ea/ Sodium Chloride) 500 mls @ 250 mls/hr IV PRN PRN; Protocol PRN Reason: Rx to Dose Sodium Chloride () 250 mls @ 15 mls/hr IV .[id number] PRN PRN Reason: Saline Flush Last Infusion: 06/28/19 12:39 Dose: 0 mls/hr Documented by: Sodium Chloride () 250 mls @ 15 mls/hr IV .[id number] PRN PRN Reason: Additional IVPB Infusion Enteral Nutritional Formula (Vital Af 1.2 Juma Liquid) 1,000 mls @ 20 mls/hr GT .Q48H [facility] Last Admin: 07/01/19 08:24 Dose: 20 mls/hr Documented by: Vancomycin HCl () 500 mg in 100 mls @ 100 mls/hr IV X1 ONE Stop: 07/01/19 16:59 Nutritional Formula (Thor - [place]my[place] Flavor) 1 packet GT BID [facility] Last Admin: 07/01/19 08:08 Dose: 1 packet Documented by: Senna/Docusate Sodium (Senokot-S, Laureen-Colace) 2 tablet GT DAILY PRN PRN PRN Reason: CONSTIPATION Sodium Chloride () 10 - 40 ml IV UD PRN PRN Reason: SALINE FLUSH Last Admin: 06/28/19 12:21 Dose: 10 ml Documented by: Medical Necessity - Tobacco Use Smoking Status: Smoker, status unknown Tobacco Use: Non-smoker Assessment/Plan All Active Problems Perirectal abscess (Acute) Severe sepsis (Acute) Acute respiratory failure with hypoxia and hypercapnia (Acute) Bilateral pneumonia (Acute) Infection due to [place] coronavirus (Acute) ABIGAIL likely ATN and AIN with COVID-19 and vanco toxicity 1. Acute kidney injury. Baseline SCr is normal. SCr was 0.92 mg/dL on 06/14/19. ABIGAIL is due to ATN related to sepsis. She is oliguric and is dialysis dependent. Had some issue with dialysis (with low BP) on 06/26/19. Only tolerated 2 hrs of HD on 06/26/19. The pt tolerated dialysis better on 06/28/19. Was able to remove only 734 mL because she became more hypotensive and tachycardic towards the end of HD. HD today 2. Hyperkalemia. secondary to #1. Used 2K dialysate 3. Hyperphosphatemia. secondary to #1. on binder 4. Acute hypoxic respiratory failure. Pt has COVID related pneumonia/ARDS. Supportive care as directed by electromechanical equipment tester. Antimicrobial as per ID. O>I with dialysis. Due to the current efforts to prevent transmission of COVID?19 and also the need to preserve PPE for other caregivers a [id number] encounter with the patient was not performed. That being said, all relevant records and diagnostic tests were reviewed including laboratory test and imaging. Please reference any relevant documentation elsewhere. Care will be coordinated with the primary service.
--- NOTE | 2019-07-01 13:58 | PCM.RX.CS ---
Consult Pharmacy has been consulted to manage selected antiobiotic: Vancomycin Type of Consult: Follow-up Suspected Infection: Pneumonia Labs: Sodium 144 mmol/L (136-145) 07/01/19 03:40 Potassium 3.9 mmol/L (3.5-5.1) 07/01/19 03:40 Chloride 108 mmol/L (98-107) H 07/01/19 03:40 Carbon Dioxide 23.0 mmol/L (21.0-32.0) 07/01/19 03:40 Anion Gap 12 (5-15) 06/28/19 04:55 BUN 120 mg/dL (7-18) H* 07/01/19 03:40 Creatinine 4.34 mg/dL (0.55-1.02) H 07/01/19 03:40 Est GFR (MDRD) Af Amer 13 mL/min (>60) L 07/01/19 03:40 Est GFR (MDRD) Non-Af 11 mL/min (>60) L 07/01/19 03:40 BUN/Creatinine Ratio 27.6 RATIO (10-20) H 07/01/19 03:40 Glucose 130 mg/dL (74-106) H 07/01/19 03:40 Vancomycin Trough 47.1 ug/mL (5.0-15.0) H 06/15/19 18:00 Random Vancomycin 16.8 ug/mL (0.0-15.0) H 07/01/19 03:40 Microbiology: Microbiology 06/28/19 11:00 Blood Culture (Wb) #2 - Right Hand Blood Culture - Preliminary No growth in 48 hours. 06/28/19 10:05 Blood Culture (Wb) - Port Blood Culture - Preliminary No growth in 48 hours. 06/20/19 07:00 Sputum, Induced/Lukens Gram Stain - Final 06/20/19 07:00 Sputum, Induced/Lukens Respiratory Culture - Final Meth. resistant Staph. aureus 06/13/19 13:15 Blood Culture (Wb) - Left Hand Blood Culture - Final No growth in 5 days. 06/13/19 13:15 Blood Culture (Wb) - Anticubital Right Blood Culture - Final No growth in 5 days. 06/18/19 09:00 Stool C. difficile DNA Amplification - Final 06/13/19 14:47 Urine Catheter - Siddiqi Urine Culture - Final Presumptive C albicans Meth. resistant Staph. aureus Enterococcus faecalis 06/13/19 18:00 Wound - Buttock Gram Stain - Final 06/13/19 18:00 Wound - Buttock Wound Culture - Final Proteus mirabilis Meth. resistant Staph. aureus Corynebacterium amycolatum 06/14/19 12:30 Sputum, Induced/Lukens Gram Stain - Final 06/14/19 12:30 Sputum, Induced/Lukens Respiratory Culture - Final Meth. resistant Staph. aureus 06/13/19 18:00 Wound - Abdominal Gram Stain - Final 06/13/19 18:00 Wound - Abdominal Wound Culture - Final Proteus mirabilis Meth. resistant Staph. aureus Corynebacterium amycolatum Goal Trough: 15-20 mcg/mL Pharmacy Plan for Drug Dosing: Random level this morning resulted at 16.8mg/dL even after not receiving a dose in days. Pt to have HD today and vancomycin 500mg IV to be given after HD. Random level to be entered for tomorrow morning in case of HD. Pharmacy Service will continue to monitor and adjust dosing as required. Labs to be done on [date and time ordered]: Random level - 07/02/19 @ 0600
--- NOTE | 2019-07-01 16:00 | PCM.PN.ID ---
Patient Problems: Active and Suspected Problems Severe sepsis (Acute) Acute respiratory failure with hypoxia and hypercapnia (Acute) Bilateral pneumonia (Acute) Infection due to [facility] coronavirus (Acute) Subjective: Fever throughout the day with rising wbc and worsened O2. Mental status is poor. Family deciding re: trach/peg. - Physical Exam Vitals/I&O's: Vital Signs Temp Pulse Resp BP Pulse Ox 101.4 F H 112 H 20 H 93/59 L 93 07/01/19 12:00 07/01/19 14:45 07/01/19 14:45 07/01/19 12:00 07/01/19 14:45 Oxygen Flow Rate (L/min) 6 Oxygen Delivery Method Bi-pap Weight: 94.9 kg Body Mass Index (BMI) 39.4 Intake and Output for Last 24 Hours 06/29/19 06/30/19 07/01/19 23:59 23:59 23:59 Intake Total 325 / 325 543 / 543 278 / 278 Output Total 91 / 91 112 / 112 90 / 90 Balance 234 / 234 431 / 431 188 / 188 General: Non-Cooperative, - - ill appearing Lungs: Rhonchi Cardiovascular: Tachycardic Abdomen: Soft, Non Tender, Non-Distended Skin: Ulcer/ Wound Microbiology Past 72 Hours 06/28/19 11:00 Blood Culture (Wb) #2 - Right Hand Blood Culture - Preliminary No growth in 48 hours. 06/28/19 10:05 Blood Culture (Wb) - Port Blood Culture - Preliminary No growth in 48 hours. Laboratory Results 07/01/19 03:40: Random Vancomycin 16.8 H 07/01/19 03:40: Sodium 144, Potassium 3.9, Chloride 108 H, Carbon Dioxide 23.0, BUN 120 H*, Creatinine 4.34 H, Estim Creat Clear Calc 11.90, Est GFR (MDRD) Af Amer 13 L, Est GFR (MDRD) Non-Af 11 L, BUN/Creatinine Ratio 27.6 H, Glucose 130 H, Calcium 8.7, Phosphorus 6.6 H, Albumin 2.0 L 07/01/19 09:55: COVID-19 (NASH) Pending Current Medications Acetaminophen (Tylenol Liquid) 650 mg GT Q4H PRN PRN PRN Reason: TEMP > 100.5 F Last Admin: 07/01/19 12:57 Dose: 650 mg Documented by: Albuterol Sulfate (Ventolin Aerosols) 2.5 mg INHALATION Q4H PRN PRN PRN Reason: WHEEZING Last Admin: 06/16/19 19:01 Dose: 2.5 mg Documented by: Amiodarone HCl (Cordarone) 400 mg GT DAILY [facility] Last Admin: 07/01/19 08:08 Dose: 400 mg Documented by: Chlorhexidine Gluconate () 1 each TOPICAL DAILY [facility] Last Admin: 07/01/19 03:45 Dose: 1 each Documented by: Zinc Sulfate 220 mg/ Vela Syrup 2.5 ml/ Sterile Water 2. 5 ml 0 mg NG Q8H [facility] Last Admin: 07/01/19 08:08 Dose: 5 oral.susp Documented by: Enoxaparin Sodium (Lovenox) 30 mg SC DAILY [facility] Last Admin: 07/01/19 08:08 Dose: 30 mg Documented by: Famotidine (Pepcid) 20 mg GT DAILY [facility] Last Admin: 07/01/19 08:08 Dose: 20 mg Documented by: Vancomycin IV Pharmacy to Dose (1 ea/ Sodium Chloride) 500 mls @ 250 mls/hr IV PRN PRN; Protocol PRN Reason: Rx to Dose Sodium Chloride () 250 mls @ 15 mls/hr IV .[id number] PRN PRN Reason: Saline Flush Last Infusion: 06/28/19 12:39 Dose: 0 mls/hr Documented by: Sodium Chloride () 250 mls @ 15 mls/hr IV .[id number] PRN PRN Reason: Additional IVPB Infusion Enteral Nutritional Formula (Vital Af 1.2 Juma Liquid) 1,000 mls @ 20 mls/hr GT .Q48H [facility] Last Admin: 07/01/19 08:24 Dose: 20 mls/hr Documented by: Vancomycin HCl () 500 mg in 100 mls @ 100 mls/hr IV X1 ONE Stop: 07/01/19 16:59 Piperacillin Sod/Tazobactam (Sod 3.375 gm/ Sodium Chloride) 50 mls @ 12.5 mls/hr IV Q12 [facility] Nutritional Formula (Thor - [place] Flavor) 1 packet GT BID [facility] Last Admin: 07/01/19 08:08 Dose: 1 packet Documented by: Senna/Docusate Sodium (Senokot-S, Laureen-Colace) 2 tablet GT DAILY PRN PRN PRN Reason: CONSTIPATION Sodium Chloride () 10 - 40 ml IV UD PRN PRN Reason: SALINE FLUSH Last Admin: 06/28/19 12:21 Dose: 10 ml Documented by: Medical Necessity - Tobacco Use Smoking Status: Smoker, status unknown Tobacco Use: Non-smoker Route of nutrition/ use of supplements: [] Nutritional Intake: [] IV Site: [] Siddiqi Catheter: [] - Assessment/Plan Antibiotics: [] Assessment/Plan: [] Active and Suspected Problems Severe sepsis (Acute) Acute respiratory failure with hypoxia and hypercapnia (Acute) Bilateral pneumonia (Acute) Infection due to [facility] coronavirus (Acute) COVID (+), severe sepsis, acute hypoxic resp failure, decubitus wounds - on vanc. Wound cx with mrsa, proteus, corynebacteria. QTC in 02/2019 was 540, so avoided plaquenil/azithro. Cdiff neg. Prior CT showed multiple decubitus abscesses. Sputum still with MRSA. Has been on abx since 06/12. Remains off vent on nippv. Ceftriaxone/flagyl stopped 06/26. Now with fever again, rising wbc, worsened mental status, increased FiO2. Will check bcx x2, start zosyn, continue vanc. Recommend CT-PE and CT abd/pelvis with contrast if it can be coordinated with HD. Will follow
[2019-07-01] MEDS: Heparin 10,000 UNITS/10 ML Vial 2600 UNITS IV (17:20)
--- NOTE | 2019-07-01 19:18 | DIALYSIS ---
HD x 3 hours complete. Ran on 3k bath. Only able to remove 300ml. Used right IJ catheter. Catheter closed with heparin per fill volume. Caps placed. Dressing is in place. Dr. Jennings is aware of low bp post tx. Report was given to AMAYA Gaytan.
[2019-07-01] MEDS: Vancomycin IV 500 MG/100 ML BAG 100 MG IV (20:50)
--- NOTE | 2019-07-01 21:55 | NURSING ---
Pt cont to have cyanosis/mottling to otto hands and lower extremities. Pt repositioned to Rt side, noted to have agonal breathing and some heart rhythm changes on monitor. Pt nonresponsive to painful stimuli, no posturing. BiPAP mask repositioned for better seal, pt cont to have resp rate irregularities.
--- NOTE | 2019-07-01 22:04 | NURSING ---
Pt HR asystole at this time, agonal breath. [id number] order still in effect.
--- NOTE | 2019-07-01 22:25 | NURSING ---
Pt's dtr Rosaline and son Kirit notified of pt's . Family requesting that an autopsy be done so that they can finally figure out what killed her. Family questioned about home preference and Rosaline stated We want her cremated, we can't afford anything else. Family informed that store team leader has released pt's body and that means that if they want to pursue the request for an autopsy, the pt's family will be financially responsible. Dtr states, I need to talk to my boyfriend about it. I'll let you know tomorrow. Family assured that pt will be placed in the morgue here at [facility] until she calls back in.
--- NOTE | 2019-07-02 08:54 | PCM.DEATH ---
Preliminary Cause of COVID-19 Infection Date of Admission: 06/13/19 Date of : 07/01/19 Hospital Course The patient is a 59-year-old female, with multiple comorbidities, who was admitted from a [facility] facility on June 12 with progressive hypoxemia and shortness of breath. The patient had been swabbed several days prior to her admission to the hospital for COVID-19 and her testing was subsequently found to be positive. The patient did have radiographic evidence of pneumonia and was also placed on antimicrobials. Unfortunately, due to the patient's tenuous respiratory status, she did require intubation at the time of her presentation to the hospital. The patient spent a prolonged period of time in the intensive care unit, where she required invasive mechanical ventilatory support due to ARDS secondary to a combination of COVID-19 infection combined with MRSA pneumonia. The patient was extubated on June 24, but had to be placed on continuous BiPAP support a short time later. The patient remained on noninvasive positive pressure ventilatory support, while goals of care was discussed with the patient's family. Although the family was considering reintubation with plans for tracheostomy and PEG tube placement, during repositioning of the patient on the evening of June 30, the patient became profoundly bradycardic and eventually went into asystole. Given her DNR status, no intervention was performed. The family was notified of the patient's , which occurred on June 30 at 2204.
== END 2019-07-01 23:50 | DRG 870 ==
LOC: ED 15:21 → ICU 15:29
PROVIDERS: Family Medicine; Internal Medicine; Internal Medicine Critical Care Medicine; Internal Medicine Infectious Disease; Internal Medicine Nephrology; Student in an Organized Health Care Education/Training Program; Admitting Provider Internal Medicine; Emergency Provider Emergency Medicine; PCP Family Medicine; Visit Provider Family Medicine
DX: A41.89 Other specified sepsis (principal); L89.213 Pressure ulcer of right hip, stage 3; L89.623 Pressure ulcer of left heel, stage 3; U07.1 COVID-19; J12.89 Other viral pneumonia; J15.212 Pneumonia due to Methicillin resistant Staphylococcus aureus; J96.01 Acute respiratory failure with hypoxia; J96.02 Acute respiratory failure with hypercapnia; N17.0 Acute kidney failure with tubular necrosis; G92 Toxic encephalopathy; K61.1 Rectal abscess; I48.21 Permanent atrial fibrillation; Z68.41 Body mass index [BMI] 40.0-44.9, adult; N39.0 Urinary tract infection, site not specified; B37.49 Other urogenital candidiasis; A36 Diphtheria; E87.0 Hyperosmolality and hypernatremia; N13.30 Unspecified hydronephrosis; A41.02 Sepsis due to Methicillin resistant Staphylococcus aureus; R65.20 Severe sepsis without septic shock; F31.9 Bipolar disorder, unspecified; F25.9 Schizoaffective disorder, unspecified; F41.9 Anxiety disorder, unspecified; Z79.2 Long term (current) use of antibiotics; Z99.3 Dependence on wheelchair; F17.200 Nicotine dependence, unspecified, uncomplicated; Z66 Do not resuscitate; E11.622 Type 2 diabetes mellitus with other skin ulcer; I10 Essential (primary) hypertension; E66.01 Morbid (severe) obesity due to excess calories; M19.90 Unspecified osteoarthritis, unspecified site; G47.33 Obstructive sleep apnea (adult) (pediatric); Z79.51 Long term (current) use of inhaled steroids; Z79.899 Other long term (current) drug therapy; L89.159 Pressure ulcer of sacral region, unspecified stage; L73.2 Hidradenitis suppurativa; R53.81 Other malaise; B96.89 Other specified bacterial agents as the cause of diseases classified elsewhere; B95.62 Methicillin resistant Staphylococcus aureus infection as the cause of diseases classified elsewhere; B96.4 Proteus (mirabilis) (morganii) as the cause of diseases classified elsewhere; B95.2 Enterococcus as the cause of diseases classified elsewhere; T36.8X5A Adverse effect of other systemic antibiotics, initial encounter; E87.5 Hyperkalemia; E83.39 Other disorders of phosphorus metabolism; Z99.2 Dependence on renal dialysis; L89.320 Pressure ulcer of left buttock, unstageable; L89.811 Pressure ulcer of head, stage 1
CPT/HCPCS: 31500; 31720; 36600; 51702; 71045; 73502; 74018; 76770; 80048; 80053; 80069; 80202; 81001; 82140; 82570; 82803; 82962; 83605; 83735; 83880; 84100; 84300; 84443; 84484; 85025; 85610; 85730; 86704; 86706; 87040; 87070; 87077; 87086; 87088; 87186; 87205; 87340; 87493; 87635; 87641; 90937; 92610; 93005; 94002; 94003; 94640; 94660; 94667; 94668; 97110; 97161; 97166; 97802; 99251; 99285; J7030; J7040; J7050; A4216; C1752; G0257; G0463; J0696; U0004